=== PATIENT | male | born 1965 | race Two or more races ===

== ENCOUNTER 2019-12-31 11:22 | Outpatient (REF) | payer OTHER, SELFPAY ==
--- NOTE | 2019-12-31 | XR_ITS ---
EXAMINATION: RIGHT WRIST X-RAY CLINICAL INFORMATION: Pain COMPARISON: None TECHNIQUE: 4 views of the right wrist FINDINGS: Bone alignment is normal. No acute fracture or dislocation is seen. There are small ossifications or osteophytes adjacent to the distal radius. These appear well corticated suggestive of old trauma. There are mild degenerative changes of the first SKILLED NURSING joint. There is soft tissue arterial calcification. IMPRESSION: No acute fracture or dislocation seen. Question evidence of old trauma to the volar wrist adjacent to the distal radius. Mild degenerative changes of the first SKILLED NURSING joint.
== END 2019-12-31 11:23 | disposition home or self-care (01) ==
LOC: HO.XRAY 11:22
PROVIDERS: PCP Internal Medicine; Visit Provider Internal Medicine
DX: M25.531 Pain in right wrist (principal)
CPT/HCPCS: 73100

== ENCOUNTER → 2020-02-02 12:00 | Outpatient (BNVA) | payer OTHER, SELFPAY | PROVIDERS: PCP Internal Medicine; Referring Provider Internal Medicine; Visit Provider Internal Medicine Endocrinology, Diabetes & Metabolism | DX: E11.65 Type 2 diabetes mellitus with hyperglycemia (principal); E11.40 Type 2 diabetes mellitus with diabetic neuropathy, unspecified; E11.22 Type 2 diabetes mellitus with diabetic chronic kidney disease; I12.9 Hypertensive chronic kidney disease with stage 1 through stage 4 chronic kidney disease, or unspecified chronic kidney disease; N18.30 Chronic kidney disease, stage 3 unspecified; Z79.4 Long term (current) use of insulin; E78.5 Hyperlipidemia, unspecified; E66.9 Obesity, unspecified; E55.9 Vitamin D deficiency, unspecified; Z79.899 Other long term (current) drug therapy | CPT/HCPCS: 99212 ==

== ENCOUNTER 2020-02-17 07:30 | Day surgery (SDC) | payer OTHER, SELFPAY ==
--- NOTE | 2020-02-17 08:54 | MHC.SHP ---
Pre-Procedural Eval Section B Chief Complaint: DYSPHAGIA Relevant Family History (Specify if Yes): No Relevant Social History: None Present Medications: see Short Stay Collaborative assessment Medical History: Significant History (DM, depression, anxiety, Gabrielle, ADHD) History of Previous Operations: No relevant previous surgery Allergies: Allergies Allergy/AdvReac Type Severity Reaction Status Date / Time cephalexin [From KEFLEX] Allergy Mild ITCHY Unverified 12/17/19 15:45 THROAT lisinopril [LISINOPRIL] Allergy Unknown SWELLING Unverified 12/17/19 15:45 COUGH Review of Systems Sugical H&P ROS: Negative: Constitution, Cardiovascular, Respiratory, Neurological, Psychiatric, Hem-Onc, Allergic/Immunologic, Gastrointestinal, Genitourinary, Musculoskeletal, Integumentary, Endocrine and Eyes/Ears/Nose/Throat Exam Surgical H&P Exam: Normal: HEENT, Normal: Heart, Normal: Lungs, Normal: Extremities, Normal: Abdomen, Normal: Skin and Normal: Neurological Plan Diagnosis/Plan: Unchanged Patient has been examined and remains a candidate for the planned procedure
--- NOTE | 2020-02-17 08:54 | PM.OP ---
Brief Operative Note Date of Service: 02/17/20 Pre-op diagnosis: dysphagia Post-op diagnosis: same Procedure: see op note Surgeon: Nidia Weaver MD Anesthesia: MAC Estimated blood loss (mL): 0 Condition: stable Disposition: PACU
--- NOTE | 2020-02-17 08:55 | W.PM.OPN ---
Operative Note Operative Note Date of Service: 02/17/20 Narrative: Procedure Description: EGD FLEXIBLE TRANSORAL UPPER GASTROINTESTINAL ENDOSCOPY UPPER ENDOSCOPY Consent: Indications for the procedure and potential complications of bleeding, perforation, reaction to medications and missed diagnosis were discussed with the patient and informed consent was obtained. Instrument: Olympus GIF H 190 J mid size upper endoscope Monitoring: Vital signs and clinical assessment, continuous EKG monitoring, Pulse oximetry, Carbon Dioxide monitoring and blood pressure monitoring were done throughout the procedure. Procedure: The patient was placed in the left lateral decubitis position and pre-procedure medications were administered and a bite block was placed. The endoscope was inserted into the mouth and advanced under direct vision to the third part of duodenum. A careful inspection was made as the upper endoscope was withdrawn including a retroflexed examination of the proximal stomach; Findings and interventions are described below. Findings: Larynx:normal Esophagus: GE junction at 40 cm, diaphragm hiatus at 40 cm, LA Grade A esophagitis at GEJ, bx taken as well as random esophagus, savary wire passed and 17 mm bougie used to dilate, no tears seen Stomach: Patchy gastric erythema with healed erosion scars at antrum. Biopsies were obtained. Grade 2 flap valve on retroflexed examination of the cardia. Duodenum: bulbar duodenitis, bx taken Intervention: Biopsies as noted above, savary dilation Impression/Findings: esophagitis gastritis duodenitis PLAN: cont PPI. may need to increase dose or change brand check nsaid hx can have normal diet as tolerated today if h pylori pos then treat
--- NOTE | 2020-02-17 08:55 | HO.ANESPROP2 ---
[facility] Past Medical History Medical History (Updated 01/12/20 @ 12:30 by Rosalinda Duvall MD) Anxiety CKD (chronic kidney disease) stage 3, GFR 30-59 ml/min Depression Diabetes Diabetes type 2, uncontrolled Diabetic nephropathy associated with type 2 diabetes mellitus Diabetic neuropathy associated with type 2 diabetes mellitus Dyslipidemia GERD (gastroesophageal reflux disease) High cholesterol Hypercalcemia Hypertension alf (current) use of insulin Neuropathy Obesity (BMI 30-39.9) Sleep apnea Vitamin D deficiency Family History Family History (Updated 01/12/20 @ 12:31 by Noni Billingsley LPN) Father Diabetes Mother No problems noted. Surgical History Surgical History (Updated 01/12/20 @ 12:29 by Noni Billingsley LPN) Hx of arthroscopy of knee Hx of arthroscopy of right knee Social History Social History (Updated 02/02/20 @ 12:05 by Noni Billingsley LPN) Smoking Status: Never smoker Advance Directives: No Advance Directives Information Provided: Yes Meds Allergies Allergy/AdvReac Type Severity Reaction Status Date / Time cephalexin [From KEFLEX] Allergy Mild ITCHY Unverified 12/17/19 15:45 THROAT lisinopril [LISINOPRIL] Allergy Unknown SWELLING Unverified 12/17/19 15:45 COUGH Home Medications Medication Instructions Recorded Confirmed Type alcohol swabs 0 pad TOPICAL 02/02/20 02/02/20 History atorvastatin 10 mg tablet 10 mg PO DAILY 02/02/20 02/02/20 History blood sugar diagnostic #10 ea 02/02/20 02/02/20 History famotidine 20 mg tablet 20 mg PO BID 02/02/20 02/02/20 History lancets 28 gauge #100 ea 02/02/20 02/02/20 History losartan 50 mg tablet 50 mg PO DAILY 02/02/20 02/02/20 History meclizine 25 mg tablet mg PO 02/02/20 02/02/20 History metoclopramide HCl 5 mg tablet 5 mg PO QID 02/02/20 02/02/20 History ondansetron HCl 4 mg tablet 0 mg PO 02/02/20 02/02/20 History pen needle, diabetic 32 gauge x #50 ea 02/02/20 02/02/20 History trazodone 150 mg tablet 150 mg PO BEDTIME 02/02/20 02/02/20 History triamcinolone acetonide 0.1 % applic TOPICAL BID 02/02/20 02/02/20 History topical cream venlafaxine 150 mg 300 mg PO QAM 02/02/20 02/02/20 History capsule,extended release 24 hr Exam Exam Date and Time: February 17, 2020 0855 Air[address] Mallampati Class: II (Missing/broken teeth, nothing lose) TM Dist: >3cm Neck ROM: Full Heart: RRR Lungs: CTA BL Assessment and Plan Assessment Anesthesia Assessment: Anesthesia Plan Discussed Final Anesthetic Review NPO: Yes ASA Class: III Final Preanesthetic Review: No Changes in Pt Med Stat and Consent Obtained/Reviewed Patient Risk: Intermediate Procedure Risk: Intermediate Anesthetic Plan Anesthetic Plan: MAC: Disposition: Standard PACU
[2020-02-17 09:01] VITALS: BMI 31.0
[2020-02-17 09:10] LABS: Glucose, Whole Blood 344 mg/dL (60-115)
[2020-02-17 09:13] VITALS: BP 162/92; PULSE 102; RESP 16; TEMP 36.4; O2SAT 97
[2020-02-17] MEDS: Lactated Ringers 1,000 ML 50 ML IVCONT (09:14)
[2020-02-17] MEDS: Insulin Regular, Human 100 UNIT/ML 3 ML VIAL SUBCUT (09:24)
[2020-02-17 09:49] VITALS: BP 121/73; PULSE 89; RESP 16; TEMP 36.4; O2SAT 99
[2020-02-17 10:04] VITALS: BP 145/87; PULSE 94; RESP 18; O2SAT 95
[2020-02-17 10:19] VITALS: BP 160/94; PULSE 96; RESP 16; O2SAT 96
[2020-02-17 10:29] LABS: Glucose, Whole Blood 336 mg/dL (60-115)
[2020-02-17 10:34] VITALS: BP 148/94; PULSE 92; RESP 16; O2SAT 96
--- NOTE | 2020-02-17 10:42 | PM.ANESPN ---
Subjective Subjective Patient reports: other (Follow up in PACU for BS 136) Interval history: pt in PACU BS 336 after 5 units of SQ insulin. pt poor historian regarding amount of insulin taken and when. saying 24 in am and 80 pm spoke to patient regarding BS value. he said he would take 24u at home for that value. giving 15 u SQ recheck in 1 hour. pt instructed to check his BS at home more frequently and follow closely. also to follow up with primary for being poorly controlled. pt reports multiple readings of high on machine and values over 400. Physical Exam Vital Signs: Vital Signs: Last Vital Signs Temp 97.6 F 02/17/20 09:49 Pulse 92 02/17/20 10:34 Resp 16 02/17/20 10:34 BP 148/94 H 02/17/20 10:34 Pulse Ox 96 02/17/20 10:34 Body Mass Index 31.0 Progress Note: A&P Fall Risk Details Current Medications: Current Medications Generic Name Dose Route Start Last Admin Trade Name Freq PRN Reason Stop Dose Admin Lactated Ringer's 1,000 mls @ 50 mls/hr 02/17/20 09:00 02/17/20 09:14 Lr IVCONT 50 mls/hr .Q20H RADHA Administration Ondansetron HCl 4 mg 02/17/20 08:52 Ondansetron Hcl 4 Mg/2 Ml Vial IVPUSH ONCE PRN Nausea and Vomiting Time Spent With Patient Time: Total time spent is greater than 50% in coordination of care (as documented) at patient's floor/unit and/or counseling patient: Time with patient: less than 15 minutes Procedures Abscess I/D Date of Service: 03/02/20
[2020-02-17] MEDS: Insulin Regular, Human 100 UNIT/ML 3 ML VIAL 15 UNIT SUBCUT (10:47)
[2020-02-17 10:49] VITALS: BP 164/97; PULSE 93; RESP 16; O2SAT 98
[2020-02-17 12:03] LABS: Glucose, Whole Blood 371 mg/dL (60-115)
--- NOTE | 2020-02-17 12:27 | P.POSTANES_ITS ---
Post Anesthesia Evaluation Post Anesthesia Evaluation Vital Signs: Vital Signs Temp Pulse Resp BP Pulse Ox 02/17/20 10:49 93 16 164/97 H 98 02/17/20 10:34 92 16 148/94 H 96 02/17/20 10:19 96 16 160/94 H 96 02/17/20 10:04 94 18 145/87 H 95 02/17/20 09:49 97.6 F 89 16 121/73 99 02/17/20 09:13 97.6 F 102 H 16 162/92 H 97 Anesthesia: Monitored Mental Status: Awake Pain Control: Satisfactory Nausea/Vomiting: None Hydration: Adequate Anesthesia-Related Issues: No Anes. Related Issues (Patient with uncontrolled blood sugar at baseline. 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 Patient is discharged home and advised to resume insulin regimen at home.)
== END 2020-02-17 13:02 | disposition home or self-care (01) ==
PROVIDERS: PCP Internal Medicine; Visit Provider Internal Medicine Gastroenterology
PROC: 0DJ08ZZ Inspection of Upper Intestinal Tract, Via Natural or Artificial Opening Endoscopic (ICD-10-PCS; CPT 43235; principal; 2020-02-17 09:30)
DX: R13.10 Dysphagia, unspecified (principal); K29.50 Unspecified chronic gastritis without bleeding; K29.80 Duodenitis without bleeding; K21.00 Gastro-esophageal reflux disease with esophagitis, without bleeding; K44.9 Diaphragmatic hernia without obstruction or gangrene; E11.22 Type 2 diabetes mellitus with diabetic chronic kidney disease; E11.65 Type 2 diabetes mellitus with hyperglycemia; I12.9 Hypertensive chronic kidney disease with stage 1 through stage 4 chronic kidney disease, or unspecified chronic kidney disease; N18.30 Chronic kidney disease, stage 3 unspecified; E11.21 Type 2 diabetes mellitus with diabetic nephropathy; E11.40 Type 2 diabetes mellitus with diabetic neuropathy, unspecified; Z79.4 Long term (current) use of insulin; Z79.899 Other long term (current) drug therapy; E78.5 Hyperlipidemia, unspecified; E83.52 Hypercalcemia; G47.30 Sleep apnea, unspecified; E55.9 Vitamin D deficiency, unspecified; E66.9 Obesity, unspecified
CPT/HCPCS: 43248; 43239; 82947; 88305; 88342

== ENCOUNTER 2020-02-23 19:30 | Inpatient (IN) | payer OTHER, SELFPAY ==
--- NOTE | 2020-02-23 19:47 | ECG_ITS ---
Test Reason : TACHYCARDIA Blood Pressure : / mmHG Vent. Rate : 096 BPM Atrial Rate : 096 BPM P-R Int : 130 ms QRS Dur : 080 ms QT Int : 350 ms P-R-T Axes : 053 011 030 degrees QTc Int : 442 ms Normal sinus rhythm Nonspecific T wave abnormality Abnormal ECG When compared with ECG of 09-DEC-2018 01:00, No significant change was found Referred By: Bridgette Gandhi Electronically Signed By:MARIO AKHTAR MD
--- NOTE | 2020-02-23 19:47 | ED.WEAKNESS ---
HPI - Weakness General Chief complaint: Weakness Stated complaint: INCREASED LETHARGY Time Seen by Provider: 02/23/20 20:59 Source: EMS Mode of arrival: EMS Limitations: altered mental status History of Present Illness HPI Narrative: 54-year-old male with past medical history diabetes type 2 insulin dependent, diabetic neuropathy, chronic kidney disease stage 3, obesity, hyperlipidemia, and hypertension presents with weakness, altered mental status and lethargy after being ill for several days. At this time he is unable to answer any questions, EMS was called to his home for bilateral lower extremity weakness. MD Complaint: generalized weakness and lack of energy Onset (ago): day(s) (2) Duration: constant Location: E and [facility] Severity: severe Severity scale (1-10): 9 Relieving factors: none Associated symptoms: fever/chills, loss of appetite and myalgias Related Data Home Medications Medication Instructions Recorded Confirmed atorvastatin 10 mg tablet 10 mg PO DAILY 02/02/20 02/23/20 blood sugar diagnostic #10 ea 02/02/20 02/02/20 famotidine 20 mg tablet 20 mg PO BID 02/02/20 02/24/20 lancets 28 gauge #100 ea 02/02/20 02/02/20 losartan 50 mg tablet 50 mg PO DAILY 02/02/20 02/02/20 meclizine 25 mg tablet mg PO 02/02/20 02/02/20 ondansetron HCl 4 mg tablet 0 mg PO 02/02/20 02/02/20 pen needle, diabetic 32 gauge x #50 ea 02/02/20 02/02/20 trazodone 150 mg tablet 150 mg PO BEDTIME 02/02/20 02/02/20 triamcinolone acetonide 0.1 % applic TOPICAL BID 02/02/20 02/02/20 topical cream venlafaxine 150 mg 300 mg PO QAM 02/02/20 02/02/20 capsule,extended release 24 hr Previous Rx's Medication Instructions Recorded hydrochlorothiazide 25 mg tablet 25 mg PO DAILY 90 Days #90 tab 01/04/20 clonazepam 1 mg tablet 1 mg PO TID #90 tab 01/28/20 insulin aspart U-100 100 unit/mL 20 unit SUBCUT TID 30 Days #30 ml 02/02/20 (3 mL) subcutaneous pen insulin glargine U-300 conc 300 80 unit SUBCUT DAILY 30 Days #9 ml 02/02/20 unit/mL (1.5 mL) subcutaneous pen linagliptin 5 mg tablet 5 mg PO DAILY 30 Days #30 tab 02/05/20 metoclopramide HCl 5 mg tablet 5 mg PO QID 30 Days #120 tab 02/17/20 Allergies Allergy/AdvReac Type Severity Reaction Status Date / Time cephalexin [From KEFLEX] Allergy Mild ITCHY Verified 02/17/20 08:58 THROAT lisinopril [LISINOPRIL] Allergy Unknown SWELLING Verified 02/17/20 08:58 COUGH Review of Systems Review of Systems: ROS unable to be obtained due to altered mental status Yes all other systems are reviewed and are negative [facility] Past Medical History Source: unable to obtain Medical History Anxiety CKD (chronic kidney disease) stage 3, GFR 30-59 ml/min Depression Diabetes Diabetes type 2, uncontrolled Diabetic nephropathy associated with type 2 diabetes mellitus Diabetic neuropathy associated with type 2 diabetes mellitus Dyslipidemia GERD (gastroesophageal reflux disease) High cholesterol Hypercalcemia Hypertension correction (current) use of insulin Neuropathy Obesity (BMI 30-39.9) Sleep apnea Vitamin D deficiency Surgical History Hx of arthroscopy of knee Hx of arthroscopy of right knee Family History Family History Father Diabetes Mother No problems noted. Social History Social History Alcohol intake: unknown Smoking Status: Unknown if ever smoked Use of substances other than those prescribed or required for medical reasons: Unknown Advance Directives: No Advance Directives Information Provided: No Physical Exam Vital Signs: Vital Signs: Last Vital Signs Temp 99.7 F 02/23/20 22:00 Pulse 88 02/23/20 22:00 Resp 28 H 02/23/20 22:00 BP 147/71 H 02/23/20 22:00 Pulse Ox 90 L 02/23/20 22:00 Body Mass Index 11.2 Appearance: Alert To verbal stimulus. Oriented to self. able to follow simple commands. Fall asleep mid sentence. Moderate distress. tachycardic and tachypneic, hypoxic. Head: Normal external exam. Normocephalic. Atraumatic. Eyes: PERRLA. Conjunctiva and sclera normal. Eyelids normal. ENT: TM's Normal. Pharynx normal. Uvula midline. Dry mucous membranes. No trismus noted. No drooling noted. No muffled voice noted. Neck: Normal inspection. Neck supple. No adenopathy. No meningeal signs. No neck mass noted. CVS: tachycardic heart rate and rhythm. Heart sound normal. No murmurs noted. Pulses equal to all extremities. Respiratory: moderate respiratory distress. Painless inspiration. Breath sounds decreased with expiratory wheezing. Chest nontender. No accessory muscle usage noted or decreased air movement noted. Abdomen: Soft and nontender. Bowel sounds normal in all 4 quadrants. No distention noted. No organomegaly noted. No visible injury noted. Back: No CVA tenderness. Full range of motion noted. Skin: Skin warm and mild diaphoresis. Normal skin color. Normal skin turgor. No rashes/lesions/lacerations noted. Extremities: No lower extremity edema. Extremities exhibit normal range of motion. Extremities nontender. Neuro: cranial nerves 2-12 intact NIH Stroke Scale Internal: Initial- Upon Arrival Level of Consciousness: Alert Level of Consciousness Questions: Answers one question correctly Level of Consciousness Commands: Performs neither task correctly Best Gaze: Normal Visual: No visual loss Facial Palsy: Normal Motor Arm (Right): No drift Motor Arm (Left): No drift Motor Leg (Right): No drift Motor Leg (Left): No drift Limb Ataxia: Absent Sensory: Normal Best Language: No aphasia Dysarthia: Normal Extinction and Inattention: No abnormality Score: 3 Course Course Course Narrative: 54-year-old male with past medical history of insulin-dependent diabetes, hypertension, hyperlipidemia, obesity presents with lethargy, weakness, fever, and tachycardia. Patient presents with sepsis criteria however it is highly suspicious for viral infection. We will not start fluid resuscitation until we see either CT scan or COVID-19 test results, whichever comes 1st. We will give dexamethasone, Toradol, and rectal Tylenol as patient is unable to swallow secondary to altered mental status. CT scan of head and chest pending. Patient case was discussed with hospitalist, he will be admitted once workup is complete. NIH stroke scale is a 3 however I do not feel this patient is a stroke patient As he does fit sepsis criteria. We will rule out CVA with CT of head. CT scan of chest shows infiltrates consistent with COVID-19. CT scan of head negative for acute findings or findings needing emergent intervention. Lab values at 9:08 p.m. Creatinine is 2.51 prior values have been on 09/07/2019 was 2.12 and on 06/13/2019 was 2.04, BUN 42, prior values 09/06 was 29, and 06/12 was 34. tox screen positive for benzos, patient is prescribed Klonopin. white count is negative, H&H 10.0/29.4. This is a viral illness consistent with COVID-19. Reevaluation(s) Reevaluation #1: Labs are Pending and have not been drawn. 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 Lab Data Attestation: I reviewed the patient's lab results. Result diagrams: 02/23/20 22:33 02/23/20 22:33 Labs: Lab Results 02/23/20 02/23/20 02/23/20 Range/Units 20:49 20:49 20:49 WBC (4.8-10.8) X10*3/uL RBC (4.60-5.80) X10*6/uL Hgb (14.0-18.0) g/dl Hct (42-52) % MCV (80-98) fL MCH (27.0-33.0) pg MCHC (31.0-36.0) g/dl RDW (11.0-16.0) % Plt Count (160-400) X10*3/uL MPV (9.4-12.4) fL Immature Gran % (Auto) (0.0-0.4) % Neut % (Auto) (45-73) % Lymph % (Auto) (20-40) % [place] % (Auto) (2-11) % Eos % (Auto) (0-4) % Baso % (Auto) (0-2) % Lymph # (Auto) (1.2-4.9) X10*3/uL [place] # (Auto) (0.1-1.2) X10*3/uL Eos # (Auto) (0.0-0.4) X10*3/uL Baso # (Auto) (0.0-0.2) X10*3/uL Abs Immat Gran (auto) (0.00-0.03) X10*3/uL Absolute Neuts (auto) (2.0-8.3) X10*3/uL Absolute Nucleated RBC (0.0-0.012) X10*3/uL Nucleated RBC % (auto) (0.0-0.2) /100WBC Smear Tech's Comments PT (10.8-13.0) SEC INR (0.9-1.1) APTT (24.1-38.0) SEC Sodium (135-145) mmol/L Potassium (3.3-5.1) mmol/l Chloride (96-108) mmol/L Carbon Dioxide (22-29) mmol/L Anion Gap (12-20) BUN (9-16) mg/dL Creatinine (0.5-1.4) mg/dL Estim Creat Clear Calc Estimated GFR Random Glucose (60-115) mg/dL Lactic Acid 1.5 (0.5-2.0) mmol/L Calcium (8.4-10.2) mg/dL Magnesium 1.8 (1.6-2.6) mg/dL Total Bilirubin (0.0-1.0) mg/dL Direct Bilirubin (0.0-0.5) mg/dL AST (5-37) U/L ALT (0-40) U/L Alkaline Phosphatase (39-117) U/L Troponin I High Sens 14.0 (<3.5-35.0) ng/L B-Natriuretic Peptide < 10 (<100) pg/mL Total Protein (6.5-8.0) g/dL Albumin (3.5-5.0) g/dL Lipase (8-78) U/L Urine Color Urine Appearance Urine pH (5.0-8.0) Ur Specific [place] (1.005-1.025) Urine Protein (NEG-TRACE) MG/DL Urine Glucose (UA) (NEG) MG/DL Urine Ketones (NEG) MG/DL Urine Blood (NEG) Urine Nitrite (NEG) Ur Leukocyte Esterase (NEG) Urine RBC (0) /HPF Urine WBC (0-4) /HPF Ur Squamous Epith Cells /LPF Urine Bacteria /LPF Urine Mucus /LPF Urine Opiates Screen (Not Detect) Ur Barbiturates Screen (Not Detect) Ur Phencyclidine Scrn (Not Detect) Ur Amphetamines Screen (Not Detect) U Benzodiazepines Scrn (Not Detect) Urine Cocaine Screen (Not Detect) U Marijuana (THC) Screen (Not Detect) Ethyl Alcohol mg/dL 02/23/20 02/23/20 02/23/20 Range/Units 20:49 21:08 21:08 WBC (4.8-10.8) X10*3/uL RBC (4.60-5.80) X10*6/uL Hgb (14.0-18.0) g/dl Hct (42-52) % MCV (80-98) fL MCH (27.0-33.0) pg MCHC (31.0-36.0) g/dl RDW (11.0-16.0) % Plt Count (160-400) X10*3/uL MPV (9.4-12.4) fL Immature Gran % (Auto) (0.0-0.4) % Neut % (Auto) (45-73) % Lymph % (Auto) (20-40) % [place] % (Auto) (2-11) % Eos % (Auto) (0-4) % Baso % (Auto) (0-2) % Lymph # (Auto) (1.2-4.9) X10*3/uL [place] # (Auto) (0.1-1.2) X10*3/uL Eos # (Auto) (0.0-0.4) X10*3/uL Baso # (Auto) (0.0-0.2) X10*3/uL Abs Immat Gran (auto) (0.00-0.03) X10*3/uL Absolute Neuts (auto) (2.0-8.3) X10*3/uL Absolute Nucleated RBC (0.0-0.012) X10*3/uL Nucleated RBC % (auto) (0.0-0.2) /100WBC Smear Tech's Comments PT (10.8-13.0) SEC INR (0.9-1.1) APTT (24.1-38.0) SEC Sodium (135-145) mmol/L Potassium (3.3-5.1) mmol/l Chloride (96-108) mmol/L Carbon Dioxide (22-29) mmol/L Anion Gap (12-20) BUN (9-16) mg/dL Creatinine (0.5-1.4) mg/dL Estim Creat Clear Calc Estimated GFR Random Glucose (60-115) mg/dL Lactic Acid (0.5-2.0) mmol/L Calcium (8.4-10.2) mg/dL Magnesium (1.6-2.6) mg/dL Total Bilirubin (0.0-1.0) mg/dL Direct Bilirubin (0.0-0.5) mg/dL AST (5-37) U/L ALT (0-40) U/L Alkaline Phosphatase (39-117) U/L Troponin I High Sens (<3.5-35.0) ng/L B-Natriuretic Peptide (<100) pg/mL Total Protein (6.5-8.0) g/dL Albumin (3.5-5.0) g/dL Lipase (8-78) U/L Urine Color YELLOW Urine Appearance HAZY Urine pH 5.5 (5.0-8.0) Ur Specific [place] >= 1.030 H (1.005-1.025) Urine Protein 2+ H (NEG-TRACE) MG/DL Urine Glucose (UA) NEG (NEG) MG/DL Urine Ketones NEG (NEG) MG/DL Urine Blood 2+ H (NEG) Urine Nitrite NEG (NEG) Ur Leukocyte Esterase NEG (NEG) Urine RBC 1-4 (0) /HPF Urine WBC 1-4 (0-4) /HPF Ur Squamous Epith Cells 1+ /LPF Urine Bacteria 2+ /LPF Urine Mucus 1+ /LPF Urine Opiates Screen Not Detected (Not Detect) Ur Barbiturates Screen Not Detected (Not Detect) Ur Phencyclidine Scrn Not Detected (Not Detect) Ur Amphetamines Screen Not Detected (Not Detect) U Benzodiazepines Scrn POSITIVE H (Not Detect) Urine Cocaine Screen Not Detected (Not Detect) U Marijuana (THC) Screen Not Detected (Not Detect) Ethyl Alcohol < 10 mg/dL 02/23/20 02/23/20 02/23/20 Range/Units 22:33 22:33 22:33 WBC 5.3 (4.8-10.8) X10*3/uL RBC 3.46 L (4.60-5.80) X10*6/uL Hgb 10.0 L (14.0-18.0) g/dl Hct 29.4 L (42-52) % MCV 85.0 (80-98) fL MCH 28.9 (27.0-33.0) pg MCHC 34.0 (31.0-36.0) g/dl RDW 12.0 (11.0-16.0) % Plt Count 136 L (160-400) X10*3/uL MPV 10.2 (9.4-12.4) fL Immature Gran % (Auto) 0.6 H (0.0-0.4) % Neut % (Auto) 87.9 H (45-73) % Lymph % (Auto) 6.6 L (20-40) % [place] % (Auto) 4.9 (2-11) % Eos % (Auto) 0.0 (0-4) % Baso % (Auto) 0.0 (0-2) % Lymph # (Auto) 0.4 L (1.2-4.9) X10*3/uL [place] # (Auto) 0.3 (0.1-1.2) X10*3/uL Eos # (Auto) 0.0 (0.0-0.4) X10*3/uL Baso # (Auto) 0.0 (0.0-0.2) X10*3/uL Abs Immat Gran (auto) 0.03 (0.00-0.03) X10*3/uL Absolute Neuts (auto) 4.6 (2.0-8.3) X10*3/uL Absolute Nucleated RBC 0.000 (0.0-0.012) X10*3/uL Nucleated RBC % (auto) 0.0 (0.0-0.2) /100WBC Smear Tech's Comments VERIFIED PT 14.2 H (10.8-13.0) SEC INR 1.2 H (0.9-1.1) APTT 36.4 (24.1-38.0) SEC Sodium 135 (135-145) mmol/L Potassium 3.8 (3.3-5.1) mmol/l Chloride 103 (96-108) mmol/L Carbon Dioxide 20 L (22-29) mmol/L Anion Gap 16 (12-20) BUN 42 H (9-16) mg/dL Creatinine 2.51 H (0.5-1.4) mg/dL Estim Creat Clear Calc 47.3 Estimated GFR 27 Random Glucose 167 H (60-115) mg/dL Lactic Acid (0.5-2.0) mmol/L Calcium 8.0 L (8.4-10.2) mg/dL Magnesium (1.6-2.6) mg/dL Total Bilirubin 0.4 (0.0-1.0) mg/dL Direct Bilirubin 0.2 (0.0-0.5) mg/dL AST 41 H (5-37) U/L ALT 26 (0-40) U/L Alkaline Phosphatase 108 (39-117) U/L Troponin I High Sens (<3.5-35.0) ng/L B-Natriuretic Peptide (<100) pg/mL Total Protein 5.6 L (6.5-8.0) g/dL Albumin 3.0 L (3.5-5.0) g/dL Lipase 106 H (8-78) U/L Urine Color Urine Appearance Urine pH (5.0-8.0) Ur Specific [place] (1.005-1.025) Urine Protein (NEG-TRACE) MG/DL Urine Glucose (UA) (NEG) MG/DL Urine Ketones (NEG) MG/DL Urine Blood (NEG) Urine Nitrite (NEG) Ur Leukocyte Esterase (NEG) Urine RBC (0) /HPF Urine WBC (0-4) /HPF Ur Squamous Epith Cells /LPF Urine Bacteria /LPF Urine Mucus /LPF Urine Opiates Screen (Not Detect) Ur Barbiturates Screen (Not Detect) Ur Phencyclidine Scrn (Not Detect) Ur Amphetamines Screen (Not Detect) U Benzodiazepines Scrn (Not Detect) Urine Cocaine Screen (Not Detect) U Marijuana (THC) Screen (Not Detect) Ethyl Alcohol mg/dL Imaging Data CT scan - chest: Attestation: I personally reviewed and interpreted this imaging study as follows: Radiologist's impression: EXAMINATION: CT CHEST WITHOUT CONTRAST CLINICAL INFORMATION: Lethargy and weakness with fever COMPARISON: Chest radiograph 10/10/2018 TECHNIQUE: Multidetector volumetric CT imaging of the chest was done. Axial MIP volume rendering provided. Sagittal and coronal reformatted images were obtained. This CT examination was performed using dose optimization techniques as appropriate, variously including the following: *Automated exposure control *Adjustment of mA and/or kV according to patient size (this includes techniques or standardized protocols for targeted exams where dose is matched to indication/reason for exam; i.e. extremities or head) *Use of iterative reconstruction technique DLP: 1157 mGy-cm FINDINGS: LUNGS: Scattered groundglass opacities are present throughout the lungs fairly characteristic of Covid 19 infection. No air bronchograms are seen. No lung masses are detected MEDIASTINUM: The mediastinum is normal. PLEURA: There is no pleural effusion. No pleural mass or thickening. AXILLA: No lymphadenopathy. UPPER ABDOMEN: Unremarkable. OSSEOUS STRUCTURES: Unremarkable. CT/CT chest wo con IMPRESSION: Pulmonary findings fairly classic for Covid [address] scan - head: Attestation: I personally reviewed and interpreted this imaging study as follows: Radiologist's impression: EXAMINATION: CT HEAD WITHOUT CONTRAST CLINICAL INFORMATION: Lethargy, weakness, fever COMPARISON: 05/13/2017 TECHNIQUE: Contiguous axial imaging was performed from the skull base to vertex without intravenous administration of contrast. This CT examination was performed using dose optimization techniques as appropriate, variously including the following: *Automated exposure control *Adjustment of mA and/or kV according to patient size (this includes techniques or standardized protocols for targeted exams where dose is matched to indication/reason for exam; i.e. extremities or head) *Use of iterative reconstruction technique DLP: 790 mGy-cm FINDINGS: There is no evidence of acute intracranial hemorrhage or territorial infarction. No abnormal mass effect or midline shift is seen. Flanagan to white matter differentiation is well preserved. No extra-axial fluid collections are identified. The ventricles are normal in size. There is mild patchy periventricular and subcortical white matter hypodensity consistent with chronic microvascular white matter ischemic changes. The osseous structures and soft tissues are normal. The mastoid air cells and visualized portions of the paranasal sinuses are well aerated. CT/CT head/brain wo con IMPRESSION: No acute intracranial pathology. ECG Data Attestation: I personally reviewed and interpreted this ECG as follows: ECG interpretation date: 02/23/20 ECG interpretation time: 20:49 Prior ECG tracings: not available for review Interpretation: Ventricular rate 96 beats per minute, p.r. interval 130, QT 350, QTC 442, normal sinus rhythm with nonspecific T-wave abnormality. No indication of ST elevation or depression, no indication of ischemia. Prior EKG unavailable secondary to system failure. Critical Care Time Critical Care Time Critical Care Time: Yes Total Critical Care Time: 65 Attestation: I have personally provided critical care time exclusive of time spent on separately billable procedures. Time includes review of laboratory data, radiology results, discussion with consultants, and monitoring for potential decompensation. Interventions were performed as documented. Discharge Plan Discharge Clinical Impression: COVID-19, Pneumonia due to 2019 novel coronavirus Hypertension Qualifiers: Hypertension type: essential hypertension Qualified Code(s): I10 - Essential (primary) hypertension Diabetes type 2, uncontrolled Qualifiers: Glycemic state: with hyperglycemia Qualified Code(s): E11.65 - Type 2 diabetes mellitus with hyperglycemia Patient Disposition: Admitted As Inpatient
[2020-02-23 19:50] VITALS: BP 136/72; BP 151/80; PULSE 102; PULSE 79; RESP 19; TEMP 39.2; O2SAT 92; O2SAT 96; BMI 11.2
[2020-02-23 20:00] VITALS: BP 151/80; PULSE 102; RESP 19; TEMP 39.3; O2SAT 96
[2020-02-23] MEDS: 0.9 % Sodium Chloride 1,000 ML 999 ML IVCONT (21:00)
[2020-02-23] MEDS: dexAMETHasone sod phosphate 4 MG/ML VIAL 10 MG IVPUSH (21:17)
[2020-02-23] MEDS: Ketorolac Tromethamine 30 MG/ML VIAL IVPUSH (21:18)
[2020-02-23] MEDS: Acetaminophen Supp 650 MG SUPP.RECT PR (21:18)
[2020-02-23 21:21] LABS: Lactic Acid 1.5 mmol/L (0.5-2.0)
[2020-02-23 21:24] LABS: Ethanol < 10 mg/dL
[2020-02-23 21:27] LABS: Magnesium 1.8 mg/dL (1.6-2.6)
[2020-02-23 21:32] LABS: B Type Natriuretic Peptide < 10 pg/mL (<100)
[2020-02-23 21:40] LABS: Glucose Urine UA NEG (NEG); Leukocyte Esterase Urine NEG (NEG); Nitrite Urine NEG (NEG); PH 5.5 (5.0-8.0); Specific Gravity - Urine >= 1.030 (1.005-1.025); Urine Blood 2+ (NEG); Urine Ketones NEG (NEG); Urine Protein 2+ MG/DL (NEG-TRACE)
[2020-02-23 21:56] LABS: Appearance Urine HAZY; Color Urine YELLOW
[2020-02-23 21:57] LABS: Amphetamine Screen Urine Not Detected (Not Detect); Bacteria Urine 2+ /LPF; Barbiturates, Urine Not Detected (Not Detect); Benzodiazepines Screen Urine POSITIVE (Not Detect); Cannabinoid Screen Urine Not Detected (Not Detect); Cocaine Screen Urine Not Detected (Not Detect); Mucus Urine 1+ /LPF; Opiate Screen Urine Not Detected (Not Detect); Phencyclidine Screen Urine Not Detected (Not Detect); Squamous Epithelial Cell Urine 1+ /LPF
[2020-02-23 22:00] VITALS: BP 147/71; PULSE 88; RESP 28; TEMP 37.6; O2SAT 90
[2020-02-23] MEDS: Lactated Ringers 1,000 ML 999 ML IVCONT (22:00)
--- NOTE | 2020-02-23 22:00 | PC.NURSE ---
pt daughter can be called for a ride home Har[place] [phone]
[2020-02-23 22:43] LABS: Hematocrit 29.4 % (42-52); Imm Gran Abs Auto 0.03 X10*3/uL (0.00-0.03); Imm Gran Pct Auto 0.6 % (0.0-0.4); Lymphocytes Absolute Auto 0.4 X10*3/uL (1.2-4.9); Lymphocytes Percent Auto 6.6 % (20-40); MANUAL DIFF FLAG SCAN; Mean Corpuscular Hemoglobin 28.9 pg (27.0-33.0); Mean Platelet Volume 10.2 fL (9.4-12.4); Monocytes Absolute Auto 0.3 X10*3/uL (0.1-1.2); Monocytes Percent Auto 4.9 % (2-11); Neutrophils Absolute Auto 4.6 X10*3/uL (2.0-8.3); Neutrophils Percent Auto 87.9 % (45-73); Platelet Count 136 X10*3/uL (160-400); Red Blood Count 3.46 X10*6/uL (4.60-5.80); SCAN SMEAR FLAG 1; White Blood Count 5.3 X10*3/uL (4.8-10.8)
[2020-02-23 22:51] LABS: INTERNATIONAL NORM RATIO 1.2 (0.9-1.1); Prothrombin Time 14.2 SEC (10.8-13.0)
[2020-02-23 22:54] LABS: Partial Thromboplastin Time 36.4 SEC (24.1-38.0)
[2020-02-23 23:03] LABS: SLIDE REVIEW VERIFIED
[2020-02-23 23:16] LABS: Alanine Aminotransferase 26 U/L (0-40); Alkaline Phosphatase 108 U/L (39-117); Anion Gap 16 (12-20); Aspartate Amino Transferase 41 U/L (5-37); Bilirubin Direct 0.2 mg/dL (0.0-0.5); Bilirubin Total 0.4 mg/dL (0.0-1.0); Blood Urea Nitrogen 42 mg/dL (9-16); Carbon Dioxide 20 mmol/L (22-29); Chloride 103 mmol/L (96-108); Creatinine Clr Calc Pharmacy 47.3; Estimated Glomerular Filt Rate 27; Glucose Random 167 mg/dL (60-115); Potassium 3.8 mmol/l (3.3-5.1); Sodium 135 mmol/L (135-145); Total Protein 5.6 g/dL (6.5-8.0)
[2020-02-23 23:33] LABS: Lipase 106 U/L (8-78)
[2020-02-24] VITALS (10 sets, daily range): BP systolic 145–170; BP diastolic 58–92; PULSE 70–102; RESP 16–98; TEMP 36.2–37; O2SAT 91–98; BMI 32.3
[2020-02-24 00:25] LABS: Influenza A PCR NEGATIVE (Negative); Influenza B PCR NEGATIVE (Negative); Resp Syncy Virus RNA Qual PCR NEGATIVE (Negative)
[2020-02-24 00:32] LABS: SARS COV2 PCR INHOUSE POSITIVE (Negative)
--- NOTE | 2020-02-24 00:52 | PC.NURSE ---
Patient dropping oxygen sats into the 80's Respiratory called to evaluate patient.
--- NOTE | 2020-02-24 01:14 | PC.NURSE ---
cigar packer and sorter aware of drop in oxygen and states as long as patient maintains sats no high flow oxygen is needed.
--- NOTE | 2020-02-24 01:47 | PC.NURSE ---
Called to give report but was told that nurse was in a room with a patient and could she call me back.
--- NOTE | 2020-02-24 01:54 | PC.NURSE ---
Report given and patient is ready for transport to the floor.
[2020-02-24] MEDS: 0.9 % Sodium Chloride 1,000 ML 100 ML IVCONT (03:31)
--- NOTE | 2020-02-24 03:44 | PC.NURSE ---
PT TRANSPORTED TO THE UNIT VIA STRETCHER. PT IS ALERT AND ORIENTED X 2. PT IS ON 4L OF O2 AND O2 SATS IS 93-95%, RR IS REGULAR, NO C/O PAIN. PT REPORTS LIVING WITH HIS SISTER AND BROTHER. PT REPORTS HIS SON IS HIS MACHINE SETTER SUPERVISOR AND ASSISTS HIM WITH ADL'S. PT STATES HE USES A CANE FOR ASSISTANCE WITH AMBULATION. PT WAS PROVIDED THE CALL [facility]RAZA AND SAFETY EXPLAINED. HIGH FALL RISK PROTOCOL IS IN PLACE.
--- NOTE | 2020-02-24 05:56 | P.HPHOSP_ITS ---
History of Present Illness Date of Service: 02/23/20 Chief Complaint: weakness, diarrhea this is a 54-year-old who has a past medical history of diabetes , CKD,and hypertension who presents the hospital with complaints of weakness patient is currently very lethargic, slightly confused, unable to really give me a good history but reports that he came into the ED because he has been having diarrhea for few days. He says no to most of my questions although appears very ill. He reports low appetite, vomiting. Denies any cough, shortness of breath. No other review of system can be obtained from patient of note patient was in the hospital for an EGD on the of this month. on arrival to the ED patient has a temp of 102.6?, pulse rate of 102, blood pressure 151/80, satting 96% on 2 L of oxygen. Labs are significant for BUN of 42, creatinine of 2.51, normal lactic acid, no leukocytosis, UA that is positive for blood and protein with negative for nitrates, leukocyte Estrace, positive benzos in UDS, positive COVID-19. CT of the chest shows bilateral ground-glass opacities concerning for viral pneumonia patient will be admitted for further management allergic past medical history is obtained mostly from chart as patient is too confused and lethargic to answer these questions past medical history: Diabetes, CKD, hypertension past surgical history: unknown family history: Unknown social history: Comes from home, no history of tobacco alcohol or illicit drugs Review of Systems Review of Systems: Yes all other systems are reviewed and are negative PMFSH Medical History Anxiety CKD (chronic kidney disease) stage 3, GFR 30-59 ml/min Depression Diabetes Diabetes type 2, uncontrolled Diabetic nephropathy associated with type 2 diabetes mellitus Diabetic neuropathy associated with type 2 diabetes mellitus Dyslipidemia GERD (gastroesophageal reflux disease) High cholesterol Hypercalcemia 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 Surgical History Hx of arthroscopy of knee Hx of arthroscopy of right knee Social History Household Members: Family Housing: House Do you presently have visiting nurse or other home services: Yes Alcohol intake: unknown Smoking Status: Never smoker Use of substances other than those prescribed or required for medical reasons: No Have you been hit, kicked, punched, or otherwise hurt by someone within the past year? If so, by whom?: No Do you feel safe in your current relationship?: No Current Relationship Is there a partner from a previous relationship who is making you feel unsafe now?: No Are you made to feel afraid or neglected: No Advance Directives: No Advance Directives Information Provided: No Do you have thoughts of harming others: None Do you have a plan to hurt others: No Plan Recently lost weight without trying: No Meds Allergies Allergy/AdvReac Type Severity Reaction Status Date / Time cephalexin [From KEFLEX] Allergy Mild ITCHY Verified 02/17/20 08:58 THROAT lisinopril [LISINOPRIL] Allergy Unknown SWELLING Verified 02/17/20 08:58 COUGH Home Medications Medication Instructions Recorded Confirmed Type atorvastatin 10 mg tablet 10 mg PO DAILY 02/02/20 02/23/20 History blood sugar diagnostic #10 ea 02/02/20 02/24/20 History famotidine 20 mg tablet 20 mg PO BID 02/02/20 02/24/20 History lancets 28 gauge #100 ea 02/02/20 02/24/20 History losartan 50 mg tablet 50 mg PO DAILY 02/02/20 02/24/20 History meclizine 25 mg tablet 25 mg PO Q6-8H PRN 02/02/20 02/24/20 History ondansetron HCl 4 mg tablet 4 mg PO Q6-8H PRN 02/02/20 02/24/20 History pen needle, diabetic 32 gauge x #50 ea 02/02/20 02/24/20 History /32 trazodone 150 mg tablet 150 mg PO BEDTIME 02/02/20 02/24/20 History triamcinolone acetonide 0.1 % 0.1 applic TOPICAL BID 02/02/20 02/24/20 History topical cream venlafaxine 150 mg 300 mg PO QAM 02/02/20 02/24/20 History capsule,extended release 24 hr cholecalciferol (vitamin D3) 1 cap PO DAILY 02/24/20 02/24/20 History [D3-2000] insulin glargine U-300 conc 80 unit SUBCUT DAILY 02/24/20 02/24/20 History [Brenna SoloStar U-300 Insulin] linagliptin [Tradjenta] 1 tab PO DAILY 02/24/20 02/24/20 History Physical Exam Vital Signs and Narrative: Vital Signs: Last Vital Signs Temp 98.0 F 02/24/20 03:11 Pulse 90 02/24/20 03:11 Resp 20 02/24/20 03:11 BP 168/88 H 02/24/20 03:11 Pulse Ox 97 02/24/20 03:11 Body Mass Index 32.3 Const: General: no acute distress and ill appearing Orientation/consciousness: oriented to person and oriented to place Eyes: General: appearance normal, both eyes and all related structures Pupils: Equal, round and reactive pupils present Resp: Effort & Inspection: normal respiratory effort Auscultation: clear to auscultation bilaterally Cardio: Rate: regular rate Rhythm: regular rhythm GI: Palpation (GI): Soft to palpation Auscultation: normal bowel sounds Skin: General skin exam: no rashes or lesions noted Neuro: Other: lethargic not oriented to time General: oriented to person and oriented to place Cranial nerves: Yes Equal, round and reactive pupils present Extrem: General: Yes normal to inspection and Yes no pedal edema Results Labs CBC and Chem 7: 02/23/20 22:33 02/23/20 22:33 Labs: Laboratory Results - last 24 hr 02/23/20 02/23/20 02/23/20 20:49 20:49 20:49 MCV MCH MCHC RDW Plt Count MPV Immature Gran % (Auto) Neut % (Auto) Lymph % (Auto) [place] % (Auto) Eos % (Auto) Baso % (Auto) Lymph # (Auto) [place] # (Auto) Eos # (Auto) Baso # (Auto) Abs Immat Gran (auto) Absolute Neuts (auto) Absolute Nucleated RBC Nucleated RBC % (auto) Smear Tech's Comments PT INR APTT Anion Gap Estim Creat Clear Calc Estimated GFR Random Glucose Lactic Acid 1.5 Calcium Magnesium 1.8 Total Bilirubin Direct Bilirubin AST ALT Alkaline Phosphatase Troponin I High Sens 14.0 B-Natriuretic Peptide < 10 Total Protein Albumin Lipase Urine Color Urine Appearance Urine pH Ur Specific [place] Urine Protein Urine Glucose (UA) Urine Ketones Urine Blood Urine Nitrite Ur Leukocyte Esterase Urine RBC Urine WBC Ur Squamous Epith Cells Urine Bacteria Urine Mucus Urine Opiates Screen Ur Barbiturates Screen Ur Phencyclidine Scrn Ur Amphetamines Screen U Benzodiazepines Scrn Urine Cocaine Screen U Marijuana (THC) Screen Ethyl Alcohol Coronavirus (PCR) Influenza Type A (PCR) Influenza Type B (PCR) RSV RNA Qual (PCR) 02/23/20 02/23/20 02/23/20 20:49 21:08 21:08 MCV MCH MCHC RDW Plt Count MPV Immature Gran % (Auto) Neut % (Auto) Lymph % (Auto) [place] % (Auto) Eos % (Auto) Baso % (Auto) Lymph # (Auto) [place] # (Auto) Eos # (Auto) Baso # (Auto) Abs Immat Gran (auto) Absolute Neuts (auto) Absolute Nucleated RBC Nucleated RBC % (auto) Smear Tech's Comments PT INR APTT Anion Gap Estim Creat Clear Calc Estimated GFR Random Glucose Lactic Acid Calcium Magnesium Total Bilirubin Direct Bilirubin AST ALT Alkaline Phosphatase Troponin I High Sens B-Natriuretic Peptide Total Protein Albumin Lipase Urine Color YELLOW Urine Appearance HAZY Urine pH 5.5 Ur Specific [place] >= 1.030 H Urine Protein 2+ H Urine Glucose (UA) NEG Urine Ketones NEG Urine Blood 2+ H Urine Nitrite NEG Ur Leukocyte Esterase NEG Urine RBC 1-4 Urine WBC 1-4 Ur Squamous Epith Cells 1+ Urine Bacteria 2+ Urine Mucus 1+ Urine Opiates Screen Not Detected Ur Barbiturates Screen Not Detected Ur Phencyclidine Scrn Not Detected Ur Amphetamines Screen Not Detected U Benzodiazepines Scrn POSITIVE H Urine Cocaine Screen Not Detected U Marijuana (THC) Screen Not Detected Ethyl Alcohol < 10 Coronavirus (PCR) Influenza Type A (PCR) Influenza Type B (PCR) RSV RNA Qual (PCR) 02/23/20 02/23/20 02/23/20 22:33 22:33 22:33 MCV 85.0 MCH 28.9 MCHC 34.0 RDW 12.0 Plt Count 136 L MPV 10.2 Immature Gran % (Auto) 0.6 H Neut % (Auto) 87.9 H Lymph % (Auto) 6.6 L [place] % (Auto) 4.9 Eos % (Auto) 0.0 Baso % (Auto) 0.0 Lymph # (Auto) 0.4 L [place] # (Auto) 0.3 Eos # (Auto) 0.0 Baso # (Auto) 0.0 Abs Immat Gran (auto) 0.03 Absolute Neuts (auto) 4.6 Absolute Nucleated RBC 0.000 Nucleated RBC % (auto) 0.0 Smear Tech's Comments VERIFIED PT 14.2 H INR 1.2 H APTT 36.4 Anion Gap 16 Estim Creat Clear Calc 47.3 Estimated GFR 27 Random Glucose 167 H Lactic Acid Calcium 8.0 L Magnesium Total Bilirubin 0.4 Direct Bilirubin 0.2 AST 41 H ALT 26 Alkaline Phosphatase 108 Troponin I High Sens B-Natriuretic Peptide Total Protein 5.6 L Albumin 3.0 L Lipase 106 H Urine Color Urine Appearance Urine pH Ur Specific [place] Urine Protein Urine Glucose (UA) Urine Ketones Urine Blood Urine Nitrite Ur Leukocyte Esterase Urine RBC Urine WBC Ur Squamous Epith Cells Urine Bacteria Urine Mucus Urine Opiates Screen Ur Barbiturates Screen Ur Phencyclidine Scrn Ur Amphetamines Screen U Benzodiazepines Scrn Urine Cocaine Screen U Marijuana (THC) Screen Ethyl Alcohol Coronavirus (PCR) Influenza Type A (PCR) Influenza Type B (PCR) RSV RNA Qual (PCR) 02/23/20 23:33 MCV MCH MCHC RDW Plt Count MPV Immature Gran % (Auto) Neut % (Auto) Lymph % (Auto) [place] % (Auto) Eos % (Auto) Baso % (Auto) Lymph # (Auto) [place] # (Auto) Eos # (Auto) Baso # (Auto) Abs Immat Gran (auto) Absolute Neuts (auto) Absolute Nucleated RBC Nucleated RBC % (auto) Smear Tech's Comments PT INR APTT Anion Gap Estim Creat Clear Calc Estimated GFR Random Glucose Lactic Acid Calcium Magnesium Total Bilirubin Direct Bilirubin AST ALT Alkaline Phosphatase Troponin I High Sens B-Natriuretic Peptide Total Protein Albumin Lipase Urine Color Urine Appearance Urine pH Ur Specific [place] Urine Protein Urine Glucose (UA) Urine Ketones Urine Blood Urine Nitrite Ur Leukocyte Esterase Urine RBC Urine WBC Ur Squamous Epith Cells Urine Bacteria Urine Mucus Urine Opiates Screen Ur Barbiturates Screen Ur Phencyclidine Scrn Ur Amphetamines Screen U Benzodiazepines Scrn Urine Cocaine Screen U Marijuana (THC) Screen Ethyl Alcohol Coronavirus (PCR) POSITIVE A Influenza Type A (PCR) NEGATIVE Influenza Type B (PCR) NEGATIVE RSV RNA Qual (PCR) NEGATIVE Imaging Radiologist's Impressions: Impressions Head CT 02/23/20 19:47 IMPRESSION: No acute intracranial pathology. Chest CT 02/23/20 19:48 IMPRESSION: Pulmonary findings fairly classic for Covid 19 pulmonary disease. Assessment and Plan (1) Sepsis: Status: Acute (2) Pneumonia due to 2019 novel coronavirus: Status: Acute (3) Encephalopathy due to COVID-19 virus: Status: Acute (4) Diabetes type 2, uncontrolled: Qualifiers: Glycemic state: with hyperglycemia Qualified Code(s): E11.65 - Type 2 diabetes mellitus with hyperglycemia Status: Acute (5) Hypertension: Qualifiers: Hypertension type: essential hypertension Qualified Code(s): I10 - Essential (primary) hypertension Status: Acute this is a 54-year-old gentleman with past medical history of diabetes and hypertension who presents to the hospital with complaints of weakness, diarrhea, and generally not doing well. Patient is currently lethargic, confused and found to have COVID-[address] chest as well as COVID-19 serology positive # sepsis - most likely secondary to COVID-19 infection - febrile, tachycardic as well as tachypneic plan: - Will administer dexamethasone 4 mg IV daily - IV fluids - follow cultures # COVID-19 pneumonia - satting 90% on room air, currently on 3 L satting 96% plan: - Received 10 mg of dexamethasone in the ED, will continue with 4 mg daily - monitor respiratory status closely # COVID-19 cephalopathy - patient oriented to self and place but not to time, walks as and wanes during my interview - monitor # diabetes mellitus - continue home insulin - monitor for hypoglycemia - low-dose sliding scale insulin - diabetic diet # hypertension - stable - continue home regimen # hyperlipidemia - continue statin # depression and anxiety - hold clonazepam given altered mentation, continue venlafax DVT prophylaxis: Lovenox
--- NOTE | 2020-02-24 07:51 | PC.NURSE ---
Pt wanted flu shot. Pt has had fevers and is COVID +. will reassess administration at time of discharge
[2020-02-24 08:12] LABS: Glucose, Whole Blood 389 mg/dL (60-115)
[2020-02-24] MEDS: Insulin Lispro 100 UNIT/ML 3 ML VIAL 20 UNIT SUBCUT ×3 (08:27→16:50)
[2020-02-24] MEDS: Atorvastatin Calcium 10 MG TABLET PO (08:28)
[2020-02-24] MEDS: Famotidine 20 MG TABLET PO ×2 (08:28→21:23)
[2020-02-24] MEDS: dexAMETHasone sod phosphate 4 MG/ML VIAL 6 MG IVPUSH (08:28)
[2020-02-24] MEDS: Insulin Glargine,Hum.rec.anlog 100 UNIT/ML 10 ML VIAL 64 UNIT SUBCUT (08:28)
[2020-02-24] MEDS: Venlafaxine HCl ER 150 MG CAP.ER.24H 300 MG PO (08:28)
--- NOTE | 2020-02-24 08:28 | P.CDIC_ITS ---
CDI Concurrent Query Service Date: 02/25/20 Documentation Clarification: Please clarify if you are treating a proba ble/suspected/likely or confirmed: Septic Encephalopathy Metabolic and or toxic Encephalopathy Please specify if known Provider Response: Metabolic Encephalopathy PLEASE DO NOT DELETE/MODIFY EXISTING CONTENT Additional information is needed in order to code to the highest accuracy and appropriate Severity of Illness (SOI). Please clarify the information noted below in your progress notes and discharge summary. Risk Factors/Clinical Indicators/Treatments AMS, confused, patient unable to swallow meds due to AMS, lethargic, ill appearing. Sepsis due to covid-19/pneumonia. H&P: Assessment/plan: Covid-19 cephalopathy. CDS: Lana Godfrey CCS, CDIS Contact Number: [phone] Please Review the information above and exercise your independent professional judgment in responding to the query. If you concur, pleas document in the PROGRESS NOTES and DISCHARGE SUMMARY. If you do not agree with the query, please document in the query above. THIS QUERY IS PART OF THE PERMANENT MEDICAL RECORD
[2020-02-24] MEDS: Enoxaparin Sodium 40 MG/0.4 ML SYRINGE SUBCUT (08:29)
[2020-02-24] MEDS: Metoclopramide HCl 5 MG TABLET PO ×4 (08:29→21:23)
[2020-02-24] MEDS: hydroCHLOROthiazide 25 MG TABLET PO (08:29)
[2020-02-24] MEDS: Losartan Potassium 50 MG TABLET PO (08:29)
[2020-02-24] MEDS: amLODIPine Besylate 5 MG TABLET PO (09:54)
[2020-02-24 11:39] LABS: Glucose, Whole Blood 451 mg/dL (60-115)
[2020-02-24] MEDS: Insulin Lispro 100 UNIT/ML 3 ML VIAL SUBCUT ×4 (11:43→21:22)
--- NOTE | 2020-02-24 11:58 | MHC.CM.PN ---
IMM 02/24/2020 MALE 54 DX COVID+ HE LIVES WITH FAMILY. HE HAS [facility] TO ASSIST WITH ADLS. DP HOME WITH [facility]. RESUMPTION OF [facility] SERVICES. PT WILL NEED ASSIST WITH TRANSPORTATION AT [place]. CM WILL FOLLOW.
[2020-02-24 12:45] LABS: Glucose, Whole Blood 397 mg/dL (60-115)
--- NOTE | 2020-02-24 14:05 | W.PM.IDCN ---
History of Present Illness Data of Consult Service Date: 02/24/20 Requesting physician: Erica Peres Primary Care Provider: Unknown Physician HPI Reason for consult: shortness of breath He presents with weakness for last 2-3 days He has no fever or chills,nausea,vomiting or diarrhea He has oxygen saturation on 2 l of 90-93% and at 4 liters 97%z He is on steroids Review of Systems Review of Systems: Yes Unobtainable due to mental status PMFSH Past Medical History Medical History Anxiety CKD (chronic kidney disease) stage 3, GFR 30-59 ml/min Depression Diabetes Diabetes type 2, uncontrolled Diabetic nephropathy associated with type 2 diabetes mellitus Diabetic neuropathy associated with type 2 diabetes mellitus Dyslipidemia GERD (gastroesophageal reflux disease) High cholesterol Hypercalcemia Hypertension residential (current) use 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 Surgical History Surgical History History of esophagogastroduodenoscopy (EGD) Hx of arthroscopy of knee Hx of arthroscopy of right knee Social History Social History Household Members: Family Housing: House Alcohol intake: current Alcohol intake frequency: does not drink Smoking Status: Never smoker service: No Current occupational status: disabled Meds Allergies Allergy/AdvReac Type Severity Reaction Status Date / Time cephalexin [From KEFLEX] Allergy Mild ITCHY Verified 03/22/20 11:10 THROAT lisinopril [LISINOPRIL] Allergy Unknown SWELLING Verified 03/22/20 11:10 COUGH Home Medications Medication Instructions Recorded Confirmed Type atorvastatin 10 mg tablet 10 mg PO DAILY 02/02/20 03/22/20 History blood sugar diagnostic #10 ea 02/02/20 03/22/20 History lancets 28 gauge #100 ea 02/02/20 03/22/20 History meclizine 25 mg tablet 25 mg PO Q6-8H PRN 02/02/20 03/22/20 History ondansetron HCl 4 mg tablet 4 mg PO Q6-8H PRN 02/02/20 03/22/20 History pen needle, diabetic 32 gauge x #50 ea 02/02/20 03/22/20 History triamcinolone acetonide 0.1 % 0.1 applic TOPICAL BID 02/02/20 03/22/20 History topical cream Toujeo SoloStar U-300 Insulin 80 unit SUBCUT DAILY 02/24/20 03/22/20 History Tradjenta 1 tab PO DAILY 02/24/20 03/22/20 History Physical Exam Vital Signs: Vital Signs: Last Vital Signs Temp 97.3 F 02/24/20 11:17 Pulse 93 02/24/20 11:17 Resp 18 02/24/20 11:17 BP 170/92 H 02/24/20 11:17 Pulse Ox 97 02/24/20 11:17 Body Mass Index 32.3 Const: General: no acute distress HENMT: Head: Yes normal to inspection Mouth: Normal oral and palatal mucosa present Eyes: General: appearance normal, both eyes and all related structures Resp: Effort & Inspection: normal respiratory effort and able to speak in complete sentences Cardio: Rate: regular rate Rhythm: regular rhythm GI: Inspection: Yes normal to inspection Palpation (GI): nontender : General: Yes no CVA tenderness Back/Spine/Pelvis: Back: no CVA tenderness Skin: General skin exam: no rashes or lesions noted Assessment and Plan (1) Encephalopathy due to COVID-19 virus: Status: Resolved Continue current plan Dexamethasone helps survival No Remdesivir as unlikely to do much here per WHO's Solidarity Trial and our own internal observations ,continue Dexamethasone and oxygen (2) Sepsis: Status: Resolved Results Labs CBC & Chem 7: 02/26/20 05:43 02/26/20 05:43 Labs: Short CBC 02/23/20 Range/Units 22:33 WBC 5.3 (4.8-10.8) X10*3/uL Hgb 10.0 L (14.0-18.0) g/dl Hct 29.4 L (42-52) % Plt Count 136 L (160-400) X10*3/uL BMP 02/23/20 22:33 Sodium 135 Potassium 3.8 Chloride 103 Carbon Dioxide 20 L BUN 42 H Creatinine 2.51 H Calcium 8.0 L Liver Function 11/24/20 Range/Units 22:33 Total Bilirubin 0.4 (0.0-1.0) mg/dL Direct Bilirubin 0.2 (0.0-0.5) mg/dL AST 41 H (5-37) U/L ALT 26 (0-40) U/L Alkaline Phosphatase 108 (39-117) U/L Albumin 3.0 L (3.5-5.0) g/dL Urine 02/23/20 Range/Units 21:08 Urine Color YELLOW Urine Appearance HAZY Urine pH 5.5 (5.0-8.0) Ur Specific [place] >= 1.030 H (1.005-1.025) Urine Protein 2+ H (NEG-TRACE) MG/DL Urine Glucose (UA) NEG (NEG) MG/DL
--- NOTE | 2020-02-24 14:07 | PC.NURSE ---
Pt satting 97-98% on 4L NC Decreased NC to 2L, pt satting 98%. Will continue to monitor
[2020-02-24 16:26] LABS: Glucose, Whole Blood 303 mg/dL (60-115)
--- NOTE | 2020-02-24 16:28 | PC.NURSE ---
Pt POC this mornign was 389. Message sent to , hold scheduled SSI, gava lantus and humalog per EMAR. Lunch POC was 451, notified MD, give 10 units SSI now and recheck POC prior to pt eating. Recheck POC was 397, ordered to give SSI, 20 scheduled units of humalog. will continue to monitor
[2020-02-24] MEDS: 0.9 % Sodium Chloride Flush 3 ML SYRINGE IVFLUSH (16:50)
--- NOTE | 2020-02-24 17:18 | PC.NURSE ---
Spoke with pt's sister who is his HCP. Updated on daily plan, pts increase o2 needs and plan. Sister states he normally walks by himself at home and occasionally uses cane when needed.
[2020-02-24] MEDS: Acetaminophen 325 MG TABLET 650 MG PO (20:25)
[2020-02-24 20:39] LABS: Glucose, Whole Blood 214 mg/dL (60-115)
[2020-02-24] MEDS: clonazePAM 1 MG TABLET PO (21:49)
[2020-02-24] MEDS: traZODone HCL 50 MG TABLET 150 MG PO (21:49)
[2020-02-25] VITALS (9 sets, daily range): BP systolic 133–150; BP diastolic 73–95; PULSE 77–114; RESP 14–20; TEMP 35.9–36.9; O2SAT 90–93
[2020-02-25] MEDS: 0.9 % Sodium Chloride Flush 3 ML SYRINGE IVFLUSH ×3 (00:02→16:28)
[2020-02-25] MEDS: Enoxaparin Sodium 40 MG/0.4 ML SYRINGE SUBCUT (06:33)
[2020-02-25 07:31] LABS: Hematocrit 35.1 % (42-52); Mean Corpuscular HGB Conc 34.2 g/dl (31.0-36.0); Mean Corpuscular Hemoglobin 29.3 pg (27.0-33.0); Mean Corpuscular Volume 85.8 fL (80-98); Mean Platelet Volume 10.6 fL (9.4-12.4); Platelet Count 201 X10*3/uL (160-400); Red Blood Count 4.09 X10*6/uL (4.60-5.80); Red Cell Distribution Width 11.9 % (11.0-16.0); White Blood Count 9.9 X10*3/uL (4.8-10.8)
[2020-02-25 08:00] LABS: Glucose, Whole Blood 142 mg/dL (60-115)
[2020-02-25 08:02] LABS: Alanine Aminotransferase 30 U/L (0-40); Albumin Level 3.3 g/dL (3.5-5.0); Alkaline Phosphatase 104 U/L (39-117); Anion Gap 15 (12-20); Aspartate Amino Transferase 45 U/L (5-37); Bilirubin Direct 0.2 mg/dL (0.0-0.5); Bilirubin Total 0.3 mg/dL (0.0-1.0); Blood Urea Nitrogen 55 mg/dL (9-16); Calcium 8.4 mg/dL (8.4-10.2); Carbon Dioxide 22 mmol/L (22-29); Chloride 104 mmol/L (96-108); Estimated Glomerular Filt Rate 31; Glucose Random 108 mg/dL (60-115); Potassium 4.6 mmol/l (3.3-5.1); Sodium 136 mmol/L (135-145); Total Protein 6.6 g/dL (6.5-8.0)
[2020-02-25] MEDS: Insulin Lispro 100 UNIT/ML 3 ML VIAL 20 UNIT SUBCUT ×3 (08:20→16:47)
[2020-02-25] MEDS: Insulin Glargine,Hum.rec.anlog 100 UNIT/ML 10 ML VIAL 70 UNIT SUBCUT (08:20)
[2020-02-25] MEDS: Venlafaxine HCl ER 150 MG CAP.ER.24H 300 MG PO (08:21)
[2020-02-25] MEDS: Metoclopramide HCl 5 MG TABLET PO ×4 (08:21→21:41)
[2020-02-25] MEDS: dexAMETHasone sod phosphate 4 MG/ML VIAL 6 MG IVPUSH (08:21)
[2020-02-25] MEDS: Losartan Potassium 50 MG TABLET PO (08:21)
[2020-02-25] MEDS: clonazePAM 1 MG TABLET PO (08:21)
[2020-02-25] MEDS: Famotidine 20 MG TABLET PO ×2 (08:21→21:41)
[2020-02-25] MEDS: Atorvastatin Calcium 10 MG TABLET PO (08:21)
[2020-02-25] MEDS: amLODIPine Besylate 5 MG TABLET PO (08:22)
[2020-02-25 09:57] LABS: Basophils Percent Auto 0.1 % (0-2); Imm Gran Abs Auto 0.07 X10*3/uL (0.00-0.03); Imm Gran Pct Auto 0.7 % (0.0-0.4); Lymphocytes Absolute Auto 0.6 X10*3/uL (1.2-4.9); Lymphocytes Percent Auto 6.1 % (20-40); MANUAL DIFF FLAG SCAN; Monocytes Absolute Auto 0.8 X10*3/uL (0.1-1.2); Monocytes Percent Auto 7.4 % (2-11); Neutrophils Absolute Auto 8.9 X10*3/uL (2.0-8.3); Neutrophils Percent Auto 85.7 % (45-73); SCAN SMEAR FLAG 1
[2020-02-25 10:14] LABS: SLIDE REVIEW VERIFIED
[2020-02-25 11:41] LABS: Glucose, Whole Blood 143 mg/dL (60-115)
--- NOTE | 2020-02-25 14:22 | HO.PM.IMPN ---
Subjective Subjective Date of Service: 02/25/20 Interval History: the patient was seen and evaluated this morning Laying in bed, feels comfortable Denies any fever, chills Still complaining of mild shortness of breath and cough No reported other overnight events. Systemic review: No fever, chills or weakness No chest pain, palpitation Mild shortness of breath or coughing No abdominal pain, nausea or vomiting No urinary symptoms No any rash or wounds Physical Exam Vital Signs: Vital Signs: Last Vital Signs Temp 96.6 F L 02/25/20 08:00 Pulse 100 02/25/20 08:22 Resp 18 02/25/20 08:00 BP 133/95 H 02/25/20 08:22 Pulse Ox 93 02/25/20 08:00 Body Mass Index 32.3 Constitutional : Alert, oriented, not in distress Neck : Normal inspection, Supple Cardiovascular : RRR, S1 S2, no lower extremity edema Respiratory : Fair bilateral air entry, no crackles, fine scattered wheezes and rhonchi Gastrointestinal: soft, lax, Normal bowel sounds, Non tender Skin : Warm/Dry, No rash Neurological : Alert & oriented x3, No focal deficit Objective Data Current Medications Generic Name Dose Route Start Last Admin Trade Name Freq PRN Reason Stop Dose Admin Acetaminophen 650 mg 02/24/20 02:56 02/24/20 20:25 Acetaminophen 325 Mg Tablet PO 650 mg Q6H PRN Administration Pain, Mild (Pain Scale 1-3) Amlodipine Besylate 5 mg 02/24/20 09:00 02/25/20 08:22 Amlodipine Besylate 5 Mg Tablet PO 5 mg DAILY RADHA Administration Protocol Atorvastatin Calcium 10 mg 02/24/20 09:00 02/25/20 08:21 Atorvastatin Calcium 10 Mg Tablet PO 10 mg DAILY RADHA Administration Clonazepam 1 mg 02/24/20 21:30 02/25/20 08:21 Clonazepam 1 Mg Tablet PO 1 mg TID RADHA Administration Dexamethasone Sodium Phosphate 6 mg 02/24/20 09:00 02/25/20 08:21 Dexamethasone Sod Phosphate 4 Mg/Ml Vial IVPUSH 6 mg DAILY RADHA Administration Docusate Sodium 100 mg 02/24/20 02:56 Docusate Sodium 100 Mg Capsule PO DAILY PRN Constipation Enoxaparin Sodium 40 mg 02/24/20 06:00 02/25/20 06:33 Enoxaparin Sodium 40 Mg/0.4 Ml Syringe SUBCUT 40 mg Q24H RADHA Administration Famotidine 20 mg 02/24/20 09:00 02/25/20 08:21 Famotidine 20 Mg Tablet PO 20 mg BID RADHA Administration Insulin Glargine 70 unit 02/25/20 09:00 02/25/20 08:20 Insulin Glargine,Hum.Rec.Anlog 100 Unit/Ml 10 Ml Vial SUBCUT 70 unit DAILY RADHA Administration Insulin Human Lispro 20 unit 02/24/20 07:30 02/25/20 12:06 Insulin Lispro 100 Unit/Ml 3 Ml Vial SUBCUT 20 unit [facility] Administration Insulin Human Lispro 0 unit 02/24/20 07:30 02/25/20 12:18 Insulin Lispro 100 Unit/Ml 3 Ml Vial SUBCUT Not Given QIDACHS [facility] Protocol Losartan Potassium 50 mg 02/24/20 09:00 02/25/20 08:21 Losartan Potassium 50 Mg Tablet PO 50 mg DAILY RADHA Administration Protocol Meclizine HCl 25 mg 02/24/20 05:56 Meclizine Hcl 25 Mg Tablet PO Q6H PRN Dizziness Metoclopramide HCl 5 mg 02/24/20 09:00 02/25/20 12:06 Metoclopramide Hcl 5 Mg Tablet PO 5 mg QID [facility] Administration Ondansetron HCl 4 mg 02/24/20 02:56 Ondansetron Hcl 4 Mg/2 Ml Vial IVPUSH Q8H PRN Nausea and Vomiting Pharmacy Consult 1 each 02/23/20 22:03 Consult Rx Perform Med Rec MISCELLANE ONCE PRN Consult order Sodium Chloride 3 ml 02/24/20 08:00 02/25/20 08:22 0.9 % Sodium Chloride Flush 3 Ml Syringe IVFLUSH 3 ml QSHIFT [facility] Administration Trazodone HCl 150 mg 02/24/20 21:30 02/24/20 21:49 Trazodone Hcl 50 Mg Tablet PO 150 mg BEDTIME [facility] Administration Venlafaxine HCl 300 mg 02/24/20 09:00 02/25/20 08:21 Venlafaxine Hcl Er 150 Mg Cap.Er.24h PO 300 mg DAILY RADHA Administration Labs CBC & Chem 7: 02/25/20 06:40 02/25/20 06:40 Microbiology Microbiology Results: Microbiology 02/23/20 20:49 Blood - Venous Blood Culture - Preliminary No growth after 24 hours. 02/23/20 20:49 Blood - Venous Blood Culture - Preliminary No growth after 24 hours. Assessment and Plan (1) Sepsis: Status: Acute (2) Pneumonia due to 2019 novel coronavirus: Status: Acute (3) Encephalopathy due to COVID-19 virus: Status: Acute (4) Diabetes type 2, uncontrolled: Status: Acute (5) Hypertension: Status: Acute Assessment and Plan: This is a 54-year-old gentleman with past medical history of diabetes and hypertension who presents to the hospital with complaints of weakness, diarrhea, and generally not doing well. Patient is currently lethargic, confused and found to have COVID-[address] chest as well as COVID-19 serology positive sepsis, resolve secondary to COVID-19 infection Continue dexamethasone 6 mg IV daily DC IV fluids Wean down O2 as tolerated follow cultures Id input appreciated, no need for remdesivir at this point Metabolic encephalopathy Improving Could be secondary to infection itself On 1 mg clonazepam t.i.d., to decrease the dose to 0.5 mg for now Recurrent reorientation Hyperglycemia secondary to diabetes mellitus Increase Lantus to 70 units daily low-dose sliding scale insulin diabetic diet hypertension stable continue home regimen hyperlipidemia continue statin depression and anxiety Decrease the dose of clonazepam continue venlafax DVT prophylaxis Lovenox
[2020-02-25] MEDS: clonazePAM 0.5 MG TABLET PO ×2 (16:26→21:41)
[2020-02-25 16:33] LABS: Glucose, Whole Blood 150 mg/dL (60-115)
--- NOTE | 2020-02-25 18:18 | PC.NURSE ---
Addendum entered by Rosaura Garcia RN 02/25/20 18:22: Pt did still have nonproductive cough as well today Original Note: Weaned pt off o2 in am - on room air most of the day sat 92-94% - no complaints of SOB. Pt walked with RN to bathroom and did appear a bit steady/shaky -pt did say he felt some dizziness- recovered well when sitting down. Pt states he sometimes uses a cane at home but no other assisstive advice. call santiago within reach. [place] risk measures remain in place.
[2020-02-25] MEDS: Acetaminophen 325 MG TABLET 650 MG PO (19:48)
[2020-02-25 20:04] LABS: Glucose, Whole Blood 82 mg/dL (60-115)
[2020-02-25 21:38] LABS: Glucose, Whole Blood 145 mg/dL (60-115)
[2020-02-25] MEDS: traZODone HCL 50 MG TABLET 150 MG PO (21:41)
[2020-02-26] MEDS: 0.9 % Sodium Chloride Flush 3 ML SYRINGE IVFLUSH ×2 (01:06→08:21)
[2020-02-26 03:28] VITALS: BP 154/88; PULSE 70; RESP 18; TEMP 36.8; O2SAT 91
[2020-02-26] MEDS: Enoxaparin Sodium 40 MG/0.4 ML SYRINGE SUBCUT (06:12)
[2020-02-26 07:16] LABS: Hematocrit 33.4 % (42-52); Hemoglobin 11.2 g/dl (14.0-18.0); Mean Corpuscular HGB Conc 33.5 g/dl (31.0-36.0); Mean Corpuscular Hemoglobin 28.9 pg (27.0-33.0); Mean Corpuscular Volume 86.1 fL (80-98); Mean Platelet Volume 10.5 fL (9.4-12.4); Platelet Count 240 X10*3/uL (160-400); Red Blood Count 3.88 X10*6/uL (4.60-5.80); Red Cell Distribution Width 11.9 % (11.0-16.0); White Blood Count 10.8 X10*3/uL (4.8-10.8)
[2020-02-26 08:00] VITALS: PULSE 74
[2020-02-26 08:04] LABS: Alanine Aminotransferase 29 U/L (0-40); Albumin Level 3.1 g/dL (3.5-5.0); Alkaline Phosphatase 98 U/L (39-117); Anion Gap 16 (12-20); Aspartate Amino Transferase 35 U/L (5-37); Bilirubin Direct 0.2 mg/dL (0.0-0.5); Bilirubin Total 0.5 mg/dL (0.0-1.0); Blood Urea Nitrogen 52 mg/dL (9-16); Calcium 8.1 mg/dL (8.4-10.2); Carbon Dioxide 22 mmol/L (22-29); Chloride 103 mmol/L (96-108); Creatinine Clr Calc Pharmacy 52.7; Estimated Glomerular Filt Rate 38; Glucose Random 174 mg/dL (60-115); Potassium 4.6 mmol/l (3.3-5.1); Sodium 136 mmol/L (135-145)
[2020-02-26] MEDS: Insulin Lispro 100 UNIT/ML 3 ML VIAL 20 UNIT SUBCUT ×2 (08:17→11:52)
[2020-02-26] MEDS: amLODIPine Besylate 5 MG TABLET PO (08:20)
[2020-02-26] MEDS: clonazePAM 0.5 MG TABLET PO (08:20)
[2020-02-26] MEDS: Losartan Potassium 50 MG TABLET PO (08:20)
[2020-02-26] MEDS: Metoclopramide HCl 5 MG TABLET PO ×2 (08:20→11:53)
[2020-02-26] MEDS: Atorvastatin Calcium 10 MG TABLET PO (08:20)
[2020-02-26] MEDS: Venlafaxine HCl ER 150 MG CAP.ER.24H 300 MG PO (08:20)
[2020-02-26] MEDS: dexAMETHasone sod phosphate 4 MG/ML VIAL 6 MG IVPUSH (08:21)
[2020-02-26] MEDS: Famotidine 20 MG TABLET PO (08:21)
[2020-02-26 08:33] LABS: Glucose, Whole Blood 175 mg/dL (60-115)
[2020-02-26] MEDS: Insulin Glargine,Hum.rec.anlog 100 UNIT/ML 10 ML VIAL 70 UNIT SUBCUT (09:37)
--- NOTE | 2020-02-26 10:16 | MHC.CM.PN ---
DP home with [facility] resumption of services. RN and [facility] ARCHITECT program in place. Transport via BLS.
--- NOTE | 2020-02-26 11:22 | P.DS_ITS ---
DS: Providers Provider Date of admission: 02/24/20 00:11 Primary care physician: Unknown Physician Consults: 02/24/20 08:47 Consult to Infectious Diseases Routine Consulting Provider: Meaghan Cruz Reason for consultation: Covid19 infection, need for Remdesivir. for your kind eval DS: Diagnosis Discharge Diagnosis (1) Sepsis: Status: Acute (2) Pneumonia due to 2019 novel coronavirus: Status: Acute (3) Encephalopathy due to COVID-19 virus: Status: Acute (4) Diabetes type 2, uncontrolled: Status: Acute (5) Hypertension: Status: Acute (6) COVID-19: Status: Acute (7) CKD (chronic kidney disease) stage 3, GFR 30-59 ml/min: Status: Acute (8) Diabetic neuropathy associated with type 2 diabetes mellitus: Status: Acute DS: Medications Discharge Medications Home Medications: Home Medications Medication Instructions Recorded Confirmed atorvastatin 10 mg tablet 10 mg PO DAILY 02/02/20 02/23/20 blood sugar diagnostic #10 ea 02/02/20 02/24/20 famotidine 20 mg tablet 20 mg PO BID 02/02/20 02/24/20 lancets 28 gauge #100 ea 02/02/20 02/24/20 losartan 50 mg tablet 50 mg PO DAILY 02/02/20 02/24/20 meclizine 25 mg tablet 25 mg PO Q6-8H PRN 02/02/20 02/24/20 ondansetron HCl 4 mg tablet 4 mg PO Q6-8H PRN 02/02/20 02/24/20 pen needle, diabetic 32 gauge x #50 ea 02/02/20 02/24/20 trazodone 150 mg tablet 150 mg PO BEDTIME 02/02/20 02/24/20 triamcinolone acetonide 0.1 % 0.1 applic TOPICAL BID 02/02/20 02/24/20 topical cream venlafaxine 150 mg 300 mg PO QAM 02/02/20 02/24/20 capsule,extended release 24 hr Toujeo SoloStar U-300 Insulin 80 unit SUBCUT DAILY 02/24/20 02/24/20 Tradjenta 1 tab PO DAILY 02/24/20 02/24/20 cholecalciferol (vitamin D3) 1 cap PO DAILY 11/25/20 11/25/20 [D3-2000] Previous Rx's Medication Instructions Recorded hydrochlorothiazide 25 mg tablet 25 mg PO DAILY 90 Days #90 tab 01/04/20 insulin aspart U-100 100 unit/mL 20 unit SUBCUT TID 30 Days #30 ml 02/02/20 (3 mL) subcutaneous pen metoclopramide HCl 5 mg tablet 5 mg PO QID 30 Days #120 tab 02/17/20 clonazepam 0.5 mg PO TID #90 tab 02/26/20 dexamethasone 6 mg PO DAILY #7 tab 02/26/20 DS: Summary Hospital Course Hospital Course: Admission note HPI this is a 54-year-old who has a past medical history of diabetes , CKD,and hypertension who presents the hospital with complaints of weakness patient is currently very lethargic, slightly confused, unable to really give me a good history but reports that he came into the ED because he has been having diarrhea for few days. He says no to most of my questions although appears very ill. He reports low appetite, vomiting. Denies any cough, shortness of breath. No other review of system can be obtained from patient of note patient was in the hospital for an EGD on the of this month. on arrival to the ED patient has a temp of 102.6?, pulse rate of 102, blood pressure 151/80, satting 96% on 2 L of oxygen. Labs are significant for BUN of 42, creatinine of 2.51, normal lactic acid, no leukocytosis, UA that is positive for blood and protein with negative for nitrates, leukocyte Estrace, positive benzos in UDS, positive COVID-19. CT of the chest shows bilateral ground-glass opacities concerning for viral pneumonia patient will be admitted for further management allergic past medical history is obtained mostly from chart as patient is too confused and lethargic to answer these questions Hospital course The patient was admitted to the hospital for lethargy, confusion and diarrhea. Found to have COVID-19 infection. Treated with oxygen supplement, IV dexamethasone and nausea medications with good response. His home dose clonazepam was decreased from 1 mg t.i.d. to 0.5 mg t.i.d., advised to cut it down more in a week or so. It is likely the reason behind his confusion at time of presentation giving worsen CKD at that point. His mental status improved back to baseline and kidney function as well. Evaluated by infectious disease specialist who recommended treatment only with dexamethasone. Patient did not spike any fever for the last 48 hours in the hospital stay. Has been off the oxygen and ambulating in the room with no reported shortness of breath. Blood cultures remain negative during the hospital stay. To continue 7 more days of oral dexamethasone at home To decrease clonazepam to 0.5 mg 3 times a day, consider further decrease as tolerated Advised to come back to the hospital if noticed worsening shortness of breath, fever or chest pain Time Spent with Patient Time attestation: Total time spent providing and/or coordinating discharge services: Physical Exam Vital Signs: Vital Signs: Last Vital Signs Temp 98.2 F 02/26/20 03:28 Pulse 74 02/26/20 08:00 Resp 18 02/26/20 03:28 BP 154/88 H 02/26/20 03:28 Pulse Ox 91 L 02/26/20 03:28 Body Mass Index 32.3 Constitutional : Alert, oriented, not in distress Neck : Normal inspection, Supple Cardiovascular : RRR, S1 S2, no lower extremity edema Respiratory : Fair bilateral air entry, no crackles, no wheezes and rhonchi Gastrointestinal: soft, lax, Normal bowel sounds, Non tender Skin : Warm/Dry, No rash Neurological : Alert & oriented x3, No focal deficit DS: Data Data Completed and Pending Labs on day of discharge: 02/23/20 19:47 ECG 12 lead EKG Stat EKG Documentation DIRECTED CT head/brain wo con Stat Albuterol Sulfate [Ventolin] 2 puff INHALE ONCE ONE dexAMETHasone sod phosphate [Decadron] 10 mg IVPUSH ONCE ONE 02/23/20 19:48 CT chest wo con Stat 02/23/20 20:00 0.9 % Sodium Chloride [Ns] 1,000 ml IVCONT 999 mls/hr 02/23/20 20:15 Acetaminophen Supp [Tylenol Supp] 650 mg NM ONCE ONE Ketorolac Tromethamine [Toradol] 30 mg IVPUSH ONCE ONE 02/23/20 20:45 Lactated Ringers [Lr] 1,000 ml IVCONT 999 mls/hr 02/23/20 20:49 B Type Natriuretic Peptide Stat Ethanol Stat Lactic Acid Stat Magnesium Stat Troponin-I High Sensitivity Stat 02/23/20 21:08 Drug Screen Urine Stat 02/23/20 22:33 Basic Metabolic Panel Stat Complete Blood Count Auto Diff Stat Lipase Stat Liver Panel Stat Partial Thromboplastin Time Stat Prothrombin Time INR Stat SLIDE REVIEW Stat 02/23/20 23:33 SARS-CoV2/FLU/RSV Stat 02/24/20 00:02 Transfer Order Routine 02/24/20 02:56 0.9 % Sodium Chloride [Ns] 1,000 ml IVCONT 100 mls/hr 02/24/20 03:14 Flu Vacc [id number](6mos up)/PF [Fluarix Quad [id number]] 0.5 ml IM .ONCE ONE 02/24/20 07:53 Glucose, Whole Blood Routine 02/24/20 09:00 Insulin Glargine,Hum.rec.anlog [Lantus] 64 unit SUBCUT DAILY hydroCHLOROthiazide [Microzide] 25 mg PO DAILY 02/24/20 11:19 Glucose, Whole Blood Routine 02/24/20 12:41 Glucose, Whole Blood Routine 02/24/20 16:20 Glucose, Whole Blood Routine 02/24/20 20:34 Glucose, Whole Blood Routine 02/24/20 21:30 clonazePAM [KlonoPIN] 1 mg PO TID 02/25/20 06:40 Basic Metabolic Panel DAILY@0600 Complete Blood Count Auto Diff Routine Liver Panel Routine SLIDE REVIEW Routine 02/25/20 07:54 Glucose, Whole Blood Routine 02/25/20 11:35 Glucose, Whole Blood Routine 02/25/20 16:27 Glucose, Whole Blood Routine 02/25/20 19:58 Glucose, Whole Blood Routine 02/25/20 21:35 Glucose, Whole Blood Routine 02/26/20 05:43 Basic Metabolic Panel DAILY@0600 Complete Blood Count no Diff DAILY@0600 Liver Panel Routine 02/26/20 08:11 Glucose, Whole Blood Routine Laboratory Last Values WBC 10.8 X10*3/uL (4.8-10.8) 02/26/20 05:43 RBC 3.88 X10*6/uL (4.60-5.80) L 02/26/20 05:43 Hgb 11.2 g/dl (14.0-18.0) L 02/26/20 05:43 Hct 33.4 % (42-52) L 02/26/20 05:43 MCV 86.1 fL (80-98) 02/26/20 05:43 MCH 28.9 pg (27.0-33.0) 02/26/20 05:43 MCHC 33.5 g/dl (31.0-36.0) 02/26/20 05:43 RDW 11.9 % (11.0-16.0) 02/26/20 05:43 Plt Count 240 X10*3/uL (160-400) 02/26/20 05:43 MPV 10.5 fL (9.4-12.4) 02/26/20 05:43 Immature Gran % (Auto) 0.7 % (0.0-0.4) H 02/25/20 06:40 Neut % (Auto) 85.7 % (45-73) H 02/25/20 06:40 Lymph % (Auto) 6.1 % (20-40) L 02/25/20 06:40 [place] % (Auto) 7.4 % (2-11) 02/25/20 06:40 Eos % (Auto) 0.0 % (0-4) 02/25/20 06:40 Baso % (Auto) 0.1 % (0-2) 02/25/20 06:40 Lymph # (Auto) 0.6 X10*3/uL (1.2-4.9) L 02/25/20 06:40 [place] # (Auto) 0.8 X10*3/uL (0.1-1.2) 02/25/20 06:40 Eos # (Auto) 0.0 X10*3/uL (0.0-0.4) 02/25/20 06:40 Baso # (Auto) 0.0 X10*3/uL (0.0-0.2) 02/25/20 06:40 Abs Immat Gran (auto) 0.07 X10*3/uL (0.00-0.03) H 02/25/20 06:40 Absolute Neuts (auto) 8.9 X10*3/uL (2.0-8.3) H 02/25/20 06:40 Absolute Nucleated RBC 0.000 X10*3/uL (0.0-0.012) 02/26/20 05:43 Nucleated RBC % (auto) 0.0 /100WBC (0.0-0.2) 02/26/20 05:43 Smear Tech's Comments VERIFIED 02/25/20 06:40 PT 14.2 SEC (10.8-13.0) H 02/23/20 22:33 INR 1.2 (0.9-1.1) H 02/23/20 22:33 APTT 36.4 SEC (24.1-38.0) 02/23/20 22:33 Sodium 136 mmol/L (135-145) 02/26/20 05:43 Potassium 4.6 mmol/l (3.3-5.1) 02/26/20 05:43 Chloride 103 mmol/L (96-108) 02/26/20 05:43 Carbon Dioxide 22 mmol/L (22-29) 02/26/20 05:43 Anion Gap 16 (12-20) 02/26/20 05:43 BUN 52 mg/dL (9-16) H 02/26/20 05:43 Creatinine 1.86 mg/dL (0.5-1.4) H 02/26/20 05:43 Estim Creat Clear Calc 52.7 02/26/20 05:43 Estimated GFR 38 02/26/20 05:43 POC Glucose 175 mg/dL (60-115) H 02/26/20 08:11 Random Glucose 174 mg/dL (60-115) H D 02/26/20 05:43 Lactic Acid 1.5 mmol/L (0.5-2.0) 02/23/20 20:49 Calcium 8.1 mg/dL (8.4-10.2) L 02/26/20 05:43 Magnesium 1.8 mg/dL (1.6-2.6) 02/23/20 20:49 Total Bilirubin 0.5 mg/dL (0.0-1.0) 02/26/20 05:43 Direct Bilirubin 0.2 mg/dL (0.0-0.5) 02/26/20 05:43 AST 35 U/L (5-37) 02/26/20 05:43 ALT 29 U/L (0-40) 02/26/20 05:43 Alkaline Phosphatase 98 U/L (39-117) 02/26/20 05:43 Troponin I High Sens 14.0 ng/L (<3.5-35.0) 02/23/20 20:49 B-Natriuretic Peptide < 10 pg/mL (<100) 02/23/20 20:49 Total Protein 6.0 g/dL (6.5-8.0) L 02/26/20 05:43 Albumin 3.1 g/dL (3.5-5.0) L 02/26/20 05:43 Lipase 106 U/L (8-78) H 02/23/20 22:33 Urine Color YELLOW 02/23/20 21:08 Urine Appearance HAZY 02/23/20 21:08 Urine pH 5.5 (5.0-8.0) 02/23/20 21:08 Ur Specific Traver >= 1.030 (1.005-1.025) H 02/23/20 21:08 Urine Protein 2+ MG/DL (NEG-TRACE) H 02/23/20 21:08 Urine Glucose (UA) NEG MG/DL (NEG) 02/23/20 21:08 Urine Ketones NEG MG/DL (NEG) 02/23/20 21:08 Urine Blood 2+ (NEG) H 02/23/20 21:08 Urine Nitrite NEG (NEG) 02/23/20 21:08 Ur Leukocyte Esterase NEG (NEG) 02/23/20 21:08 Urine RBC 1-4 /HPF (0) 02/23/20 21:08 Urine WBC 1-4 /HPF (0-4) 02/23/20 21:08 Ur Squamous Epith Cells 1+ /LPF 02/23/20 21:08 Urine Bacteria 2+ /LPF 02/23/20 21:08 Urine Mucus 1+ /LPF 02/23/20 21:08 Urine Opiates Screen Not Detected (Not Detect) 02/23/20 21:08 Ur Barbiturates Screen Not Detected (Not Detect) 02/23/20 21:08 Ur Phencyclidine Scrn Not Detected (Not Detect) 02/23/20 21:08 Ur Amphetamines Screen Not Detected (Not Detect) 02/23/20 21:08 U Benzodiazepines Scrn POSITIVE (Not Detect) H 02/23/20 21:08 Urine Cocaine Screen Not Detected (Not Detect) 02/23/20 21:08 U Marijuana (THC) Screen Not Detected (Not Detect) 02/23/20 21:08 Ethyl Alcohol < 10 mg/dL 02/23/20 20:49 Coronavirus (PCR) POSITIVE (Negative) A 02/23/20 23:33 Influenza Type A (PCR) NEGATIVE (Negative) 02/23/20 23:33 Influenza Type B (PCR) NEGATIVE (Negative) 02/23/20 23:33 RSV RNA Qual (PCR) NEGATIVE (Negative) 02/23/20 23:33 Preliminary micro results at discharge 02/23/20 20:49 Blood Culture - Preliminary Blood - Venous No growth after 48 hours. 02/23/20 20:49 Blood Culture - Preliminary Blood - Venous No growth after 48 hours. Discharge Plan Discharge Patient Disposition: Home, Self-Care Referrals: Physician,Unknown [Primary Care Provider] - Discharge Medications: New dexamethasone 6 mg tablet 6 mg PO DAILY Qty: 7 RF: 0 Continued hydrochlorothiazide 25 mg tablet 25 mg PO DAILY 90 Days Qty: 90 RF: 1 metoclopramide HCl 5 mg tablet 5 mg PO QID 30 Days Qty: 120 RF: 1 cholecalciferol (vitamin D3) [D3-2000] 50 mcg (2,000 unit) capsule 1 cap PO DAILY RF: 0 Tradjenta 5 mg tablet 1 tab PO DAILY RF: 0 Toujeo SoloStar U-300 Insulin 300 unit/mL (1.5 mL) insulin pen 80 unit subcut DAILY RF: 0 meclizine 25 mg tablet 25 mg PO Q6-8H PRN (Reason: Dizziness) RF: 0 famotidine 20 mg tablet 20 mg PO BID RF: 0 ondansetron HCl 4 mg tablet 4 mg PO Q6-8H PRN (Reason: Nausea) RF: 0 (DME) pen needle, diabetic 32 gauge x 5/32 needle See Rx Instructions ea .ROUTE .MEDSUPPLY Qty: 50 RF: 0 trazodone 150 mg tablet 150 mg PO BEDTIME RF: 0 atorvastatin 10 mg tablet 10 mg PO DAILY RF: 0 (DME) lancets 28 gauge misc See Rx Instructions ea topical QID Qty: 100 RF: 0 venlafaxine 150 mg capsule,extended release 24hr 300 mg PO QAM RF: 0 losartan 50 mg tablet 50 mg PO DAILY RF: 0 (DME) blood sugar diagnostic Strip See Rx Instructions ea Not Applicable .MEDSUPPLY Qty: 10 RF: 0 triamcinolone acetonide 0.1 % cream 0.1 applic topical BID RF: 0 insulin aspart U-100 [Novolog Flexpen U-100 Insulin] 100 unit/mL (3 mL) insulin pen 20 unit subcut TID 30 Days Qty: 30 RF: 6 Changed clonazepam 1 mg tablet 0.5 mg PO TID Qty: 90 RF: 4 Discharge Orders: Discharge Order (Routine); Ordered 02/26/20 Ordered By: Erica Peres Diet: advance to usual diet Activity on Discharge: As tolerated Visit Report Forms: Patient Portal Discharge page Care Plan Goals: read below Health Concerns: read below Plan of Treatment: you have presented to the hospital complaining of weakness and diarrhea. Your tested positive for COVID-19 infection. Admitted to the hospital and treated with IV steroids and oxygen supplement with good response as your nausea and diarrhea resolved. You were weaned off the oxygen and were able to ambulate on room air with no shortness of breath. To use dexamethasone for 7 more days Decrease clonazepam to 0.5 mg 3 times a day, consider decreasing it to twice a day in 1 week Keep yourself quarantine for at least 7 days after resolving of your symptoms Use Tylenol as needed for pain To follow-up with PCP as scheduled
[2020-02-26 11:29] VITALS: BP 143/79; PULSE 102; RESP 18; TEMP 36.2; O2SAT 91
[2020-02-26 11:45] LABS: Glucose, Whole Blood 182 mg/dL (60-115)
[2020-02-26] MEDS: Insulin Lispro 100 UNIT/ML 3 ML VIAL SUBCUT (11:53)
--- NOTE | 2020-02-26 12:07 | MHC.CM.PN ---
Patient is DC to home with [facility] Sister providing transportation.
--- NOTE | 2020-02-26 12:31 | MHC.CM.PN ---
Called [facility], spoke with Adenike. Notified of DC today and to resume services. Home services provided by [facility]. DE Info sent to [facility].
== END 2020-02-26 14:16 | disposition home or self-care (01) | DRG 871 ==
LOC: HO.ED 22:08 → HO.IMC 02-24 01:29
PROVIDERS: Nurse Practitioner Family; Admitting Provider Internal Medicine; Emergency Provider Emergency Medicine; Visit Provider Student in an Organized Health Care Education/Training Program
DX: A41.89 Other specified sepsis (principal); U07.1 COVID-19; J12.89 Other viral pneumonia; G93.41 Metabolic encephalopathy; I12.9 Hypertensive chronic kidney disease with stage 1 through stage 4 chronic kidney disease, or unspecified chronic kidney disease; N18.30 Chronic kidney disease, stage 3 unspecified; E11.42 Type 2 diabetes mellitus with diabetic polyneuropathy; E78.5 Hyperlipidemia, unspecified; F41.9 Anxiety disorder, unspecified; K21.9 Gastro-esophageal reflux disease without esophagitis; E11.22 Type 2 diabetes mellitus with diabetic chronic kidney disease; E66.9 Obesity, unspecified; Z68.32 Body mass index [BMI] 32.0-32.9, adult; E11.65 Type 2 diabetes mellitus with hyperglycemia; Z79.4 Long term (current) use of insulin; Z79.899 Other long term (current) drug therapy
CPT/HCPCS: 0241U; 36415; 70450; 71250; 80048; 80076; 80307; 80320; 81001; 82947; 83605; 83690; 83735; 83880; 84484; 85025; 85027; 85610; 85730; 87040; 93005; 96361; 96374; 99285; 99291; J1100; J1650; J1885

== ENCOUNTER 2020-03-10 09:05 | Outpatient (REF) | payer OTHER, SELFPAY | END 2020-03-10 09:06 | disposition home or self-care (01) | LOC: HO.LAB 09:05 | PROVIDERS: PCP Internal Medicine; Visit Provider Internal Medicine | DX: Z20.828 Contact with and (suspected) exposure to other viral communicable diseases (principal) | CPT/HCPCS: C9803; U0003 ==

== ENCOUNTER → 2020-03-22 10:44 | Outpatient (BNVA) | payer OTHER, SELFPAY | PROVIDERS: PCP Internal Medicine; Visit Provider Nurse Practitioner Gerontology | DX: E11.65 Type 2 diabetes mellitus with hyperglycemia (principal); E11.21 Type 2 diabetes mellitus with diabetic nephropathy; E11.40 Type 2 diabetes mellitus with diabetic neuropathy, unspecified; E11.42 Type 2 diabetes mellitus with diabetic polyneuropathy; I10 Essential (primary) hypertension; Z79.4 Long term (current) use of insulin | CPT/HCPCS: 82947; 99212 ==

== ENCOUNTER → 2020-04-06 10:14 | Outpatient (BNVA) | payer OTHER, SELFPAY | PROVIDERS: PCP Internal Medicine; Referring Provider Internal Medicine; Visit Provider Nurse Practitioner Gerontology | DX: Z13.89 Encounter for screening for other disorder (principal) | CPT/HCPCS: Q3014 ==

== ENCOUNTER 2020-05-04 15:37 | Inpatient (IN) | payer OTHER, SELFPAY ==
[2020-05-04] VITALS (13 sets, daily range): BP systolic 155–227; BP diastolic 80–116; PULSE 93–114; RESP 16–22; TEMP 36.9–37.1; O2SAT 95–99; BMI 30.2
[2020-05-04 15:48] LABS: Glucose, Whole Blood 289 mg/dL (60-115)
--- NOTE | 2020-05-04 15:50 | ECG_ITS ---
Test Reason : SYNCOPE Blood Pressure : / mmHG Vent. Rate : 108 BPM Atrial Rate : 108 BPM P-R Int : 142 ms QRS Dur : 076 ms QT Int : 346 ms P-R-T Axes : 042 001 031 degrees QTc Int : 463 ms Sinus tachycardia Moderate voltage criteria for LVH, may be normal variant Borderline ECG When compared with ECG of 23-FEB-2020 20:49, Nonspecific T wave abnormality, improved in Inferior leads Referred By: Marvin Sanchez Electronically Signed By:KATHERINE SMITH
--- NOTE | 2020-05-04 15:50 | XR_ITS ---
EXAMINATION: XR CHEST CLINICAL INFORMATION: SOB. COMPARISON: Chest 12/08/2018 TECHNIQUE: Frontal view of the chest was obtained. FINDINGS: The lungs are well-expanded with bilateral increased interstitial markings. No consolidation seen. Heart size and pulmonary vascularity is normal. No gross bony abnormality seen. XR/XR chest 1V IMPRESSION: Bilateral increased interstitial markings likely pneumonitis. No reactive airway disease seen.
--- NOTE | 2020-05-04 15:50 | CT_ITS ---
EXAMINATION: CT HEAD WITHOUT CONTRAST CLINICAL INFORMATION: Dizziness. COMPARISON: Head CT dated 02/23/2020. TECHNIQUE: Contiguous axial imaging was performed from the skull base to vertex without intravenous administration of contrast. This CT examination was performed using dose optimization techniques as appropriate, variously including the following: *Automated exposure control *Adjustment of mA and/or kV according to patient size (this includes techniques or standardized protocols for targeted exams where dose is matched to indication/reason for exam; i.e. extremities or head) *Use of iterative reconstruction technique DLP: 880 mGy-cm FINDINGS: There is no evidence of acute intracranial hemorrhage or territorial infarction. No abnormal mass effect or midline shift is seen. Fl[place] to white matter differentiation is well preserved. No extra-axial fluid collections are identified. Moderate to severe volume loss evident for patient age with ex vacuo dilatation of the ventricles. Moderate chronic white matter microangiopathy again noted. The osseous structures and soft tissues are normal. The mastoid air cells and visualized portions of the paranasal sinuses are well aerated. CT/CT head/brain wo con IMPRESSION: No acute intracranial hemorrhage or territorial infarction. Moderate to severe diffuse parenchymal volume loss and moderate chronic white matter microangiopathy.
[2020-05-04] MEDS: 0.9 % Sodium Chloride 1,000 ML 999 ML IV (16:07)
[2020-05-04 16:23] LABS: MANUAL DIFF FLAG NO
[2020-05-04 16:25] LABS: Basophils Absolute Auto 0.1 X10*3/uL (0.0-0.2); Basophils Percent Auto 0.7 % (0-2); Eosinophils Absolute Auto 0.1 X10*3/uL (0.0-0.4); Hematocrit 35.6 % (42-52); Hemoglobin 12.7 g/dl (14.0-18.0); Imm Gran Abs Auto 0.04 X10*3/uL (0.00-0.03); Imm Gran Pct Auto 0.4 % (0.0-0.4); Lymphocytes Absolute Auto 1.6 X10*3/uL (1.2-4.9); Lymphocytes Percent Auto 17.9 % (20-40); Mean Corpuscular HGB Conc 35.7 g/dl (31.0-36.0); Mean Corpuscular Hemoglobin 31.5 pg (27.0-33.0); Mean Corpuscular Volume 88.3 fL (80-98); Monocytes Absolute Auto 0.8 X10*3/uL (0.1-1.2); Monocytes Percent Auto 9.1 % (2-11); Neutrophils Absolute Auto 6.5 X10*3/uL (2.0-8.3); Neutrophils Percent Auto 70.9 % (45-73); Platelet Count 211 X10*3/uL (160-400); Red Blood Count 4.03 X10*6/uL (4.60-5.80); Red Cell Distribution Width 12.7 % (11.0-16.0); White Blood Count 9.1 X10*3/uL (4.8-10.8)
[2020-05-04 16:31] LABS: Prothrombin Time 11.7 SEC (10.8-13.0)
[2020-05-04 16:34] LABS: Partial Thromboplastin Time 36.2 SEC (24.1-38.0)
[2020-05-04 17:11] LABS: B Type Natriuretic Peptide 17 pg/mL (<100); Troponin-I High Sensitivity 10.3 ng/L (<3.5-35.0)
[2020-05-04 17:14] LABS: D Dimer < 200 NG/ML
--- NOTE | 2020-05-04 17:16 | ED.GENADULT ---
HPI - General Adult General Chief complaint: Dyspnea Stated complaint: DIZZINESS S/P EXERCISE Time Seen by Provider: 05/04/20 15:49 Source: patient Mode of arrival: ambulatory Limitations: no limitations History of Present Illness HPI narrative: Patient presents to ED for dizziness and shortness of breath while play fighting with his nephew earlier in the day. Patient denied having headache at that time or any chest pain. Patient describes dizziness as just feeling light headed. Patient states he did not pass out. Patient denied any blunt obvious trauma to the head or rest of body. Patient states he did eat breakfast this morning. Patient denies any slurred speech, loss of vision, or paralysis of extremities. Patient states this morning blood pressure systolic was in the 160s Related Data Home Medications Medication Instructions Recorded Confirmed atorvastatin 10 mg tablet 10 mg PO DAILY 02/02/20 04/29/20 blood sugar diagnostic #10 ea 02/02/20 04/29/20 lancets 28 gauge #100 ea 02/02/20 04/29/20 meclizine 25 mg tablet 25 mg PO Q6-8H PRN 02/02/20 04/29/20 ondansetron HCl 4 mg tablet 4 mg PO Q6-8H PRN 02/02/20 04/29/20 pen needle, diabetic 32 gauge x #50 ea 02/02/20 04/29/20 triamcinolone acetonide 0.1 % 0.1 applic TOPICAL BID 02/02/20 04/29/20 topical cream Toujeo SoloStar U-300 Insulin 80 unit SUBCUT DAILY 02/24/20 04/29/20 Tradjenta 1 tab PO DAILY 02/24/20 04/29/20 insulin aspart U-100 100 unit/mL 15 - 20 unit SUBCUT TID ml 04/06/20 04/29/20 (3 mL) subcutaneous pen Previous Rx's Medication Instructions Recorded hydrochlorothiazide 25 mg tablet 25 mg PO DAILY 90 Days #90 tab 01/04/20 metoclopramide HCl 5 mg tablet 5 mg PO QID 30 Days #120 tab 02/17/20 clonazepam 0.5 mg PO TID #90 tab 02/26/20 dexamethasone 6 mg PO DAILY #7 tab 02/26/20 alcohol swabs 1 pad TOPICAL .8 times a day 30 03/04/20 Days #200 ea cholecalciferol (vitamin D3) 50 50 mcg PO DAILY #30 cap 03/04/20 mcg (2,000 unit) capsule prucalopride 2 mg tablet 2 mg PO DAILY #30 tab 03/17/20 losartan 50 mg tablet 50 mg PO DAILY #90 tab 03/22/20 famotidine 20 mg tablet 20 mg PO BID #180 tab 03/23/20 trazodone 150 mg tablet 150 mg PO BEDTIME #90 tab 03/23/20 venlafaxine 150 mg 300 mg PO QAM #90 cap 03/23/20 capsule,extended release 24 hr miscellaneous medical supply 1 ea MISCELLANEOUS DAILY #1 ea 03/24/20 tizanidine 4 mg capsule 4 mg PO Q8H PRN #60 cap 04/29/20 Allergies Allergy/AdvReac Type Severity Reaction Status Date / Time cephalexin [From KEFLEX] Allergy Mild ITCHY Verified 04/06/20 10:41 THROAT lisinopril [LISINOPRIL] Allergy Unknown SWELLING Verified 04/06/20 10:41 COUGH Review of Systems Review of Systems: Yes all other systems are reviewed and are negative Constitutional: Constitutional: Reports as per HPI and Reports no additional constitutional complaints Eyes: Eyes: Reports as per HPI and Reports no additional eye complaints ENT: Reports system reviewed and no additional complaints, except as documented and Reports as per HPI Cardiovascular: Cardiovascular: Reports as per HPI, Reports no additional cardiovascular complaints, Denies chest pain, Denies chest pain at rest, Denies chest pain with activity and Reports dyspnea Respiratory: Respiratory: Reports as per HPI, Reports no additional respiratory complaints and Reports dyspnea Gastrointestinal: Gastrointestinal: Reports as per HPI and Reports no additional gastrointestinal complaints Genitourinary: Genitourinary: Reports no additional male genitourinary complaints and Reports as per HPI Musculoskeletal: Musculoskeletal: Reports no additional musculoskeletal complaints and Reports as per HPI Neurologic: Reports system reviewed and no additional complaints, except as documented and Reports as per HPI Psychiatric: Psychiatric: Reports no additional psychiatric complaints and Reports as per HPI [facility] Past Medical History Medical History Anxiety CKD (chronic kidney disease) stage 3, GFR 30-59 ml/min Depression Diabetes Diabetes type 2, uncontrolled Diabetic nephropathy associated with type 2 diabetes mellitus Diabetic neuropathy associated with type 2 diabetes mellitus Dyslipidemia GERD (gastroesophageal reflux disease) High cholesterol Hypercalcemia 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 Social History Social History Household Members: Family Housing: House Alcohol intake: current Alcohol intake frequency: does not drink Smoking Status: Never smoker Advance Directives: No Advance Directives Information Provided: Yes service: No Current occupational status: disabled Physical Exam Vital Signs: Vital Signs: Last Vital Signs Temp 98.7 F 05/04/20 16:00 Pulse 112 H 05/04/20 20:18 Resp 18 05/04/20 18:38 BP 171/98 H 05/04/20 20:18 Pulse Ox 97 05/04/20 18:38 Body Mass Index 30.2 Const: General: cooperative, healthy appearing, comfortable, no acute distress, well developed, alert, awake and Physically active Orientation/consciousness: patient oriented x3 HENMT: Head: Yes normal to inspection, Yes No palpable skull fracture present, Yes normocephalic, Yes atraumatic, No abrasion, No Acrocyanosis present, No Goldberg's sign, No contusion, No cranial bruits, No hematoma, No laceration, No occipital foramen tenderness, No palpable skull fracture, No raccoon eyes, No scalp lesion, No scalp tenderness, No Temporal artery tenderness present and No periorbital ecchymosis Eyes: Other: Negative for nystagmus General: appearance normal, both eyes and all related structures Neck: Neck: Yes normal visual inspection, Yes full ROM, Yes no lymphadenopathy, Yes no meningeal signs, Yes trachea midline, Yes supple and No tender Chest: Chest palpation & inspection: normal inspection of the chest and normal palpation of entire chest wall Resp: Effort & Inspection: normal respiratory effort and able to speak in complete sentences Auscultation: clear to auscultation bilaterally Cardio: Jugular venous distension: no JVD Heart sounds: S1 normal heart sound present and S2 normal heart sound present GI: Inspection: Yes normal to inspection and No abdominal wall ecchymosis Palpation (GI): Soft to palpation, not firm, nontender, no guarding and not rigid : General: No CVA tenderness and Yes no CVA tenderness Back/Spine/Pelvis: Back: no CVA tenderness, No CVA tenderness and No back tenderness Skin: General skin exam: no rashes or lesions noted and elasticity normal Neuro: Other: Negative for any slurred speech. Negative for facial droop. Negative pronator drift. All extremities have equal strength and 5+. [id number] and rapid hand movement is intact. Negative Romberg General: patient oriented x3, gait normal, no meningeal signs and CN's II-XI intact bilaterally Cranial nerves: Yes CN's II-XII intact bilaterally Extrem: Other: Negative for swelling, pitting edmea, or calf tenderness. General: Yes normal to inspection and Yes full ROM Psych: Appearance: grossly normal, well kempt and not disheveled Course Course Course Narrative: Patient will have a medical evaluation which will include cardiac and a D-dimer was sent to make sure there is no risk of PE. Patient presently vital signs are stable. Will order orthostatics. Reevaluation(s) Reevaluation #1: Patient became hypertensive into the systolic of 227. Patient given clonidine. Head CT scan negative for bleed or stroke. Negative for any neuro deficits. Patient 1st troponin 10. D-dimer is negative. Wells score Score 1.5 Time: 19:33 Reevaluation #2: Patient's repeat orthostatics were negative. Patient's blood pressure improved with clonidine. Patient neuro exam is still intact. Patient's 2nd troponin came back negative Time: 20:22 Reevaluation #3: Systolic now monitor is 190s. Dilantin ordered. Spoke with hospitalist for admission for hypertensive urgency. Case except Time: 20:55 Medical Decision Making MDM Narrative Medical decision making narrative: Hypertensive urgency Lab Data Result diagrams: 05/04/20 16:06 05/04/20 16:06 Labs: Lab Results 05/04/20 05/04/20 05/04/20 Range/Units 15:45 16:06 16:06 WBC 9.1 (4.8-10.8) X10*3/uL RBC 4.03 L (4.60-5.80) X10*6/uL Hgb 12.7 L (14.0-18.0) g/dl Hct 35.6 L (42-52) % MCV 88.3 (80-98) fL MCH 31.5 (27.0-33.0) pg MCHC 35.7 (31.0-36.0) g/dl RDW 12.7 (11.0-16.0) % Plt Count 211 (160-400) X10*3/uL MPV 11.0 (9.4-12.4) fL Immature Gran % (Auto) 0.4 (0.0-0.4) % Neut % (Auto) 70.9 (45-73) % Lymph % (Auto) 17.9 L (20-40) % [place] % (Auto) 9.1 (2-11) % Eos % (Auto) 1.0 (0-4) % Baso % (Auto) 0.7 (0-2) % Lymph # (Auto) 1.6 (1.2-4.9) X10*3/uL [place] # (Auto) 0.8 (0.1-1.2) X10*3/uL Eos # (Auto) 0.1 (0.0-0.4) X10*3/uL Baso # (Auto) 0.1 (0.0-0.2) X10*3/uL Abs Immat Gran (auto) 0.04 H (0.00-0.03) X10*3/uL Absolute Neuts (auto) 6.5 (2.0-8.3) X10*3/uL Absolute Nucleated RBC 0.000 (0.0-0.012) X10*3/uL Nucleated RBC % (auto) 0.0 (0.0-0.2) /100WBC PT 11.7 (10.8-13.0) SEC INR 1.0 (0.9-1.1) APTT 36.2 (24.1-38.0) SEC D-Dimer < 200 NG/ML Sodium (135-145) mmol/L Potassium (3.3-5.1) mmol/L Chloride (96-108) mmol/L Carbon Dioxide (22-29) mmol/L Anion Gap (12-20) BUN (9-16) mg/dL Creatinine (0.5-1.4) mg/dL Estim Creat Clear Calc Estimated GFR POC Glucose 289 H (60-115) mg/dL Random Glucose (60-115) mg/dL Calcium (8.4-10.2) mg/dL Total Bilirubin (0.0-1.0) mg/dL AST (5-37) U/L ALT (0-40) U/L Alkaline Phosphatase (39-117) U/L Troponin I High Sens (<3.5-35.0) ng/L B-Natriuretic Peptide (<100) pg/mL Total Protein (6.5-8.0) g/dL Albumin (3.5-5.0) g/dL 05/04/20 05/04/20 05/04/20 Range/Units 16:06 16:06 16:06 WBC (4.8-10.8) X10*3/uL RBC (4.60-5.80) X10*6/uL Hgb (14.0-18.0) g/dl Hct (42-52) % MCV (80-98) fL MCH (27.0-33.0) pg MCHC (31.0-36.0) g/dl RDW (11.0-16.0) % Plt Count (160-400) X10*3/uL MPV (9.4-12.4) fL Immature Gran % (Auto) (0.0-0.4) % Neut % (Auto) (45-73) % Lymph % (Auto) (20-40) % [place] % (Auto) (2-11) % Eos % (Auto) (0-4) % Baso % (Auto) (0-2) % Lymph # (Auto) (1.2-4.9) X10*3/uL [place] # (Auto) (0.1-1.2) X10*3/uL Eos # (Auto) (0.0-0.4) X10*3/uL Baso # (Auto) (0.0-0.2) X10*3/uL Abs Immat Gran (auto) (0.00-0.03) X10*3/uL Absolute Neuts (auto) (2.0-8.3) X10*3/uL Absolute Nucleated RBC (0.0-0.012) X10*3/uL Nucleated RBC % (auto) (0.0-0.2) /100WBC PT (10.8-13.0) SEC INR (0.9-1.1) APTT (24.1-38.0) SEC D-Dimer NG/ML Sodium 134 L (135-145) mmol/L Potassium 4.6 (3.3-5.1) mmol/L Chloride 97 (96-108) mmol/L Carbon Dioxide 24 (22-29) mmol/L Anion Gap 18 (12-20) BUN 32 H (9-16) mg/dL Creatinine 2.03 H (0.5-1.4) mg/dL Estim Creat Clear Calc 51.1 Estimated GFR 34 POC Glucose (60-115) mg/dL Random Glucose 303 H D (60-115) mg/dL Calcium 8.8 D (8.4-10.2) mg/dL Total Bilirubin 0.2 (0.0-1.0) mg/dL AST 33 (5-37) U/L ALT 22 (0-40) U/L Alkaline Phosphatase 97 (39-117) U/L Troponin I High Sens 10.3 (<3.5-35.0) ng/L B-Natriuretic Peptide 17 Cancelled (<100) pg/mL Total Protein 6.9 (6.5-8.0) g/dL Albumin 3.9 D (3.5-5.0) g/dL 05/04/20 Range/Units 19:21 WBC (4.8-10.8) X10*3/uL RBC (4.60-5.80) X10*6/uL Hgb (14.0-18.0) g/dl Hct (42-52) % MCV (80-98) fL MCH (27.0-33.0) pg MCHC (31.0-36.0) g/dl RDW (11.0-16.0) % Plt Count (160-400) X10*3/uL MPV (9.4-12.4) fL Immature Gran % (Auto) (0.0-0.4) % Neut % (Auto) (45-73) % Lymph % (Auto) (20-40) % [place] % (Auto) (2-11) % Eos % (Auto) (0-4) % Baso % (Auto) (0-2) % Lymph # (Auto) (1.2-4.9) X10*3/uL [place] # (Auto) (0.1-1.2) X10*3/uL Eos # (Auto) (0.0-0.4) X10*3/uL Baso # (Auto) (0.0-0.2) X10*3/uL Abs Immat Gran (auto) (0.00-0.03) X10*3/uL Absolute Neuts (auto) (2.0-8.3) X10*3/uL Absolute Nucleated RBC (0.0-0.012) X10*3/uL Nucleated RBC % (auto) (0.0-0.2) /100WBC PT (10.8-13.0) SEC INR (0.9-1.1) APTT (24.1-38.0) SEC D-Dimer NG/ML Sodium (135-145) mmol/L Potassium (3.3-5.1) mmol/L Chloride (96-108) mmol/L Carbon Dioxide (22-29) mmol/L Anion Gap (12-20) BUN (9-16) mg/dL Creatinine (0.5-1.4) mg/dL Estim Creat Clear Calc Estimated GFR POC Glucose (60-115) mg/dL Random Glucose (60-115) mg/dL Calcium (8.4-10.2) mg/dL Total Bilirubin (0.0-1.0) mg/dL AST (5-37) U/L ALT (0-40) U/L Alkaline Phosphatase (39-117) U/L Troponin I High Sens 9.9 (<3.5-35.0) ng/L B-Natriuretic Peptide (<100) pg/mL Total Protein (6.5-8.0) g/dL Albumin (3.5-5.0) g/dL ECG Data Interpretation: Sinus tachycardic. ND interval 142. QRS 76. QTC 463. Negative STEMI Discharge Plan Discharge Clinical Impression: Asymptomatic hypertensive urgency Patient Disposition: Admitted As Inpatient
[2020-05-04 17:30] LABS: Alanine Aminotransferase 22 U/L (0-40); Albumin Level 3.9 g/dL (3.5-5.0); Alkaline Phosphatase 97 U/L (39-117); Anion Gap 18 (12-20); Aspartate Amino Transferase 33 U/L (5-37); Bilirubin Total 0.2 mg/dL (0.0-1.0); Blood Urea Nitrogen 32 mg/dL (9-16); Calcium 8.8 mg/dL (8.4-10.2); Carbon Dioxide 24 mmol/L (22-29); Chloride 97 mmol/L (96-108); Creatinine Clr Calc Pharmacy 51.1; Estimated Glomerular Filt Rate 34; Glucose Random 303 mg/dL (60-115); Potassium 4.6 mmol/L (3.3-5.1); Sodium 134 mmol/L (135-145); Total Protein 6.9 g/dL (6.5-8.0)
[2020-05-04] MEDS: cloNIDine HCL 0.1 MG TABLET PO (19:00)
[2020-05-04 20:03] LABS: Troponin-I High Sensitivity 9.9 ng/L (<3.5-35.0)
--- NOTE | 2020-05-04 20:30 | PC.NURSE ---
bp remains high, PA Marvin aware. pt c/o headache developing no other sxs.
[2020-05-04] MEDS: Labetalol HCL 100 MG/20 ML VIAL 10 MG IVPUSH (20:47)
--- NOTE | 2020-05-04 20:52 | P.HPHOSP_ITS ---
History of Present Illness Date of Service: 05/04/20 Chief Complaint: Dizziness 54-year-old male with a past medical history of hypertension, hyperlipidemia, diabetes-insulin dependent, CKD, diabetic neuropathy, recent admission to the hospital in January 2020 for COVID-19 pneumonia/encephalopathy semi: Presented to the hospital with a chief complaint of dizziness or shortness of breath. Patient reported that he was with his family any fluid dizzy/lightheaded. Denied any associated chest pain or palpitations. Noticed shortness of breath. Also had headaches at the same time. Denies any blurry visions. Denies any numbness tingling. Denies any focal weakness. Denies any GI or symptoms. Review of all other systems is negative except mentioned above ER course: For ER team patient's EKG was nonischemic CT head showed no acute findings exam was nonfocal. D-dimer was negative. Troponins negative. Patient blood pressure was 168/94 initially subsequently went up to 222/116-patient was given clonidine with improvement in blood pressure of 171/98-admitted to the hospital for further monitoring. 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 Surgical History History of esophagogastroduodenoscopy (EGD) Hx of arthroscopy of knee Hx of arthroscopy of right knee Social History Household Members: Family Housing: House Alcohol intake: current Alcohol intake frequency: does not drink Smoking Status: Never smoker Advance Directives: No Advance Directives Information Provided: Yes service: No Current occupational status: disabled Meds Allergies Allergy/AdvReac Type Severity Reaction Status Date / Time cephalexin [From KEFLEX] Allergy Mild ITCHY Verified 04/06/20 10:41 THROAT lisinopril [LISINOPRIL] Allergy Unknown SWELLING Verified 04/06/20 10:41 COUGH Home Medications Medication Instructions Recorded Confirmed Type atorvastatin 10 mg tablet 10 mg PO DAILY 02/02/20 04/29/20 History blood sugar diagnostic #10 ea 02/02/20 04/29/20 History lancets 28 gauge #100 ea 02/02/20 04/29/20 History meclizine 25 mg tablet 25 mg PO Q6-8H PRN 02/02/20 04/29/20 History ondansetron HCl 4 mg tablet 4 mg PO Q6-8H PRN 02/02/20 04/29/20 History pen needle, diabetic 32 gauge x #50 ea 02/02/20 04/29/20 History triamcinolone acetonide 0.1 % 0.1 applic TOPICAL BID 02/02/20 04/29/20 History topical cream Toujeo SoloStar U-300 Insulin 80 unit SUBCUT DAILY 02/24/20 04/29/20 History Tradjenta 1 tab PO DAILY 02/24/20 04/29/20 History insulin aspart U-100 100 unit/mL 15 - 20 unit SUBCUT TID ml 04/06/20 04/29/20 History (3 mL) subcutaneous pen Physical Exam Vital Signs and Narrative: Vital Signs: Last Vital Signs Temp 98.7 F 05/04/20 16:00 Pulse 104 H 05/04/20 20:47 Resp 18 05/04/20 18:38 BP 185/104 H 05/04/20 20:47 Pulse Ox 97 05/04/20 18:38 Body Mass Index 30.2 Gen: Appears be in no acute distress HEENT: NCAT, Moist mucosa. Pulmonary: Vesicular breath sounds, fair air entry CVS: Normal S1-S2 Abdomen: BS+, Soft, Nontender Extremities: Warm well perfused Neuro: Alert and awake. Grossly nonfocal Results Labs CBC and Chem 7: 05/04/20 16:06 05/04/20 16:06 Labs: Laboratory Results - last 24 hr 05/04/20 05/04/20 05/04/20 15:45 16:06 16:06 MCV 88.3 MCH 31.5 MCHC 35.7 RDW 12.7 Plt Count 211 MPV 11.0 Immature Gran % (Auto) 0.4 Neut % (Auto) 70.9 Lymph % (Auto) 17.9 L [place] % (Auto) 9.1 Eos % (Auto) 1.0 Baso % (Auto) 0.7 Lymph # (Auto) 1.6 [place] # (Auto) 0.8 Eos # (Auto) 0.1 Baso # (Auto) 0.1 Abs Immat Gran (auto) 0.04 H Absolute Neuts (auto) 6.5 Absolute Nucleated RBC 0.000 Nucleated RBC % (auto) 0.0 PT 11.7 INR 1.0 APTT 36.2 D-Dimer < 200 Anion Gap Estim Creat Clear Calc Estimated GFR POC Glucose 289 H Random Glucose Calcium Total Bilirubin AST ALT Alkaline Phosphatase Troponin I High Sens B-Natriuretic Peptide Total Protein Albumin 05/04/20 05/04/20 05/04/20 16:06 16:06 16:06 MCV MCH MCHC RDW Plt Count MPV Immature Gran % (Auto) Neut % (Auto) Lymph % (Auto) [place] % (Auto) Eos % (Auto) Baso % (Auto) Lymph # (Auto) [place] # (Auto) Eos # (Auto) Baso # (Auto) Abs Immat Gran (auto) Absolute Neuts (auto) Absolute Nucleated RBC Nucleated RBC % (auto) PT INR APTT D-Dimer Anion Gap 18 Estim Creat Clear Calc 51.1 Estimated GFR 34 POC Glucose Random Glucose 303 H D Calcium 8.8 D Total Bilirubin 0.2 AST 33 ALT 22 Alkaline Phosphatase 97 Troponin I High Sens 10.3 B-Natriuretic Peptide 17 Cancelled Total Protein 6.9 Albumin 3.9 D 05/04/20 19:21 MCV MCH MCHC RDW Plt Count MPV Immature Gran % (Auto) Neut % (Auto) Lymph % (Auto) [place] % (Auto) Eos % (Auto) Baso % (Auto) Lymph # (Auto) [place] # (Auto) Eos # (Auto) Baso # (Auto) Abs Immat Gran (auto) Absolute Neuts (auto) Absolute Nucleated RBC Nucleated RBC % (auto) PT INR APTT D-Dimer Anion Gap Estim Creat Clear Calc Estimated GFR POC Glucose Random Glucose Calcium Total Bilirubin AST ALT Alkaline Phosphatase Troponin I High Sens 9.9 B-Natriuretic Peptide Total Protein Albumin Imaging Radiologist's Impressions: Impressions Chest X-Ray 05/04/20 15:50 IMPRESSION: Bilateral increased interstitial markings likely pneumonitis. No reactive airway disease seen. Head CT 05/04/20 15:50 IMPRESSION: No acute intracranial hemorrhage or territorial infarction. Moderate to severe diffuse parenchymal volume loss and moderate chronic white matter microangiopathy. Assessment and Plan (1) Hypertensive urgency: Status: Acute 54-year-old male with a past medical history of hypertension, hyperlipidemia, diabetes, chronic kidney disease, history of COVID pneumonia presented to the hospital with a chief complaint of dizziness/shortness of breath-concern for near syncope admitted to the hospital for further management. Patient also noted to be in hypertensive urgency. Near syncope: Currently improving symptomatically. Troponins negative. EKG nonischemic. PT/OT. Headaches: Nonfocal examination. Improving. Denies any associated symptoms. CT head negative. Hypertensive urgency: Will continue home medications. Labetalol p.r.n. blood pressure greater than 180/90. Diabetes: Insulin sliding scale and For all other chronic conditions, home medication will be continued DVT prophylaxis: Subcu heparin Full code
[2020-05-04 21:32] LABS: COVID-19 Test Negative (Negative); IDNOW Serial# 9DD0AD1C
[2020-05-04 21:50] LABS: Glucose, Whole Blood 260 mg/dL (60-115)
[2020-05-05] VITALS (16 sets, daily range): BP systolic 157–193; BP diastolic 75–110; PULSE 83–99; RESP 16–18; TEMP 36.6–37.1; O2SAT 94–98
[2020-05-05] MEDS: Heparin Sodium,Porcine 5,000 UNIT/ML VIAL 5000 UNIT SUBCUT ×3 (01:19→21:05)
[2020-05-05] MEDS: 0.9 % Sodium Chloride Flush 3 ML SYRINGE IVFLUSH ×3 (01:20→18:11)
[2020-05-05] MEDS: Meclizine HCl 25 MG TABLET PO (01:58)
[2020-05-05] MEDS: oxyCODONE HCl Immed Release 5 MG TABLET PO (01:58)
[2020-05-05] MEDS: Labetalol HCL 100 MG/20 ML VIAL 10 MG IVPUSH ×3 (01:59→18:13)
--- NOTE | 2020-05-05 02:08 | PC.NURSE ---
PT C/O HEAD PAIN AND JOCY KNEE PAIN. PT MEDICATED PER EMAR. PT ON MONITOR WITH HR 91. B/P 195/95. PT UP TO RESTROOM AND RETURNED TO ROOM. PT DENIES ANY OTHER COMPLAINTS. WILL CONTINUE TO MONITOR PT. /
--- NOTE | 2020-05-05 04:58 | PC.NURSE ---
PT AWAKE AND SITTING UP AND WATCHING TV REQUESTING TO KNOW WHAT TIME IT IS. PT REQUESTING SOMETHING TO DRINK. PT DENIES ANY OTHER COMPLAINTS. VS OBTAINED. PT AWAITING FOR FURTHER ORDERS.
[2020-05-05 06:47] LABS: Basophils Absolute Auto 0.1 X10*3/uL (0.0-0.2); Basophils Percent Auto 1.4 % (0-2); Eosinophils Absolute Auto 0.2 X10*3/uL (0.0-0.4); Eosinophils Percent Auto 2.9 % (0-4); Hematocrit 36.7 % (42-52); Hemoglobin 12.3 g/dl (14.0-18.0); Imm Gran Abs Auto 0.04 X10*3/uL (0.00-0.03); Imm Gran Pct Auto 0.5 % (0.0-0.4); Lymphocytes Absolute Auto 2.1 X10*3/uL (1.2-4.9); Lymphocytes Percent Auto 26.6 % (20-40); MANUAL DIFF FLAG NO; Mean Corpuscular HGB Conc 33.5 g/dl (31.0-36.0); Mean Corpuscular Hemoglobin 29.9 pg (27.0-33.0); Mean Corpuscular Volume 89.1 fL (80-98); Mean Platelet Volume 10.9 fL (9.4-12.4); Monocytes Absolute Auto 0.8 X10*3/uL (0.1-1.2); Monocytes Percent Auto 9.5 % (2-11); Neutrophils Absolute Auto 4.7 X10*3/uL (2.0-8.3); Neutrophils Percent Auto 59.1 % (45-73); Platelet Count 210 X10*3/uL (160-400); Red Blood Count 4.12 X10*6/uL (4.60-5.80); Red Cell Distribution Width 12.6 % (11.0-16.0)
[2020-05-05 07:32] LABS: Anion Gap 14 (12-20); Blood Urea Nitrogen 27 mg/dL (9-16); Calcium 9.1 mg/dL (8.4-10.2); Carbon Dioxide 28 mmol/L (22-29); Chloride 98 mmol/L (96-108); Creatinine Clr Calc Pharmacy 59.6; Estimated Glomerular Filt Rate 41; Glucose Random 169 mg/dL (60-115); Potassium 4.1 mmol/L (3.3-5.1); Sodium 136 mmol/L (135-145)
[2020-05-05] MEDS: clonazePAM 0.5 MG TABLET PO ×3 (08:11→21:05)
[2020-05-05] MEDS: Losartan Potassium 50 MG TABLET PO (08:12)
[2020-05-05 08:21] LABS: Glucose, Whole Blood 260 mg/dL (60-115)
[2020-05-05] MEDS: Metoclopramide HCl 5 MG TABLET PO ×4 (10:47→21:05)
--- NOTE | 2020-05-05 11:48 | PC.NURSE ---
patient a&ox3, currently watching tv, cardiac cath lab manager nsr 80s, vitals stable-pt previously medicated for htn- still hypertensive, will continue to monitor.
[2020-05-05 11:59] LABS: Glucose, Whole Blood 258 mg/dL (60-115)
[2020-05-05] MEDS: Insulin Lispro 100 UNIT/ML 3 ML VIAL SUBCUT ×3 (13:25→21:05)
--- NOTE | 2020-05-05 13:29 | PC.NURSE ---
patient medicated per order
--- NOTE | 2020-05-05 17:16 | MHC.CM.PN ---
Cm met with pt. IMM reviewed and signed per protocol. Copy to pt and in chart. PCP Dr. Sarthak Miranda. No HCP. Will complete. D/C plan is home with continuation of grievance coordinator management and [employer] services provided by [facility]. Son, Mt Dias is INDUSTRIAL HYGIENE ENGINEER, 2 hours/daily. Transportation provided by family. CM to F/U with Adenike at [facility] regarding home services ([phone]) in am 05/06/2020. CM to follow for d/c needs.
--- NOTE | 2020-05-05 18:16 | PC.NURSE ---
patient a&ox3, quality assurance monitor nsr 90s, vitals obtained, pt hypertensive- pt medicated with labetalol prn per order, will recheck vitals shortly, pt medicated per order, insulin not given as dinner has not arrive yet, will continue to monitor.
[2020-05-05 18:19] LABS: Glucose, Whole Blood 254 mg/dL (60-115)
--- NOTE | 2020-05-05 19:18 | HO.PM.IMPN ---
Subjective Subjective Date of Service: 05/06/20 Interval History: dizziness Physical Exam Vital Signs: Vital Signs: Last Vital Signs Temp 98.8 F 05/05/20 18:12 Pulse 92 05/05/20 18:36 Resp 18 05/05/20 18:12 BP 177/98 H 05/05/20 18:36 Pulse Ox 94 05/05/20 18:12 Body Mass Index 30.2 Objective Data Current Medications Generic Name Dose Route Start Last Admin Trade Name Freq PRN Reason Stop Dose Admin Acetaminophen 650 mg 05/04/20 20:48 Acetaminophen Supp 650 Mg Supp.Rect AL Q6H PRN Pain, Mild (Pain Scale 1-3) Amlodipine Besylate 5 mg 05/06/20 09:00 Amlodipine Besylate 5 Mg Tablet PO DAILY [facility] Protocol Atorvastatin Calcium 10 mg 05/05/20 21:00 Atorvastatin Calcium 10 Mg Tablet PO BEDTIME [facility] Clonazepam 0.5 mg 05/05/20 09:00 05/05/20 14:37 Clonazepam 0.5 Mg Tablet PO 0.5 mg TID [facility] Administration Heparin Sodium (Porcine) 5,000 unit 05/04/20 22:00 05/05/20 12:05 Heparin Sodium,Porcine 5,000 Unit/Ml Vial SUBCUT 5,000 unit Q12H [facility] Administration Insulin Glargine 10 unit 05/06/20 09:00 Insulin Glargine,Hum.Rec.Anlog 100 Unit/Ml 10 Ml Vial SUBCUT DAILY [facility] Insulin Human Lispro 0 unit 05/05/20 07:30 05/05/20 18:35 Insulin Lispro 100 Unit/Ml 3 Ml Vial SUBCUT 6 unit QIDACHS [facility] Administration Protocol Labetalol HCl 10 mg 05/04/20 21:04 05/05/20 18:13 Labetalol Hcl 100 Mg/20 Ml Vial IVPUSH 10 mg Q4H PRN Administration BP>180/90 Losartan Potassium 50 mg 05/05/20 09:00 05/05/20 08:12 Losartan Potassium 50 Mg Tablet PO 50 mg DAILY [facility] Administration Protocol Meclizine HCl 25 mg 05/05/20 00:33 05/05/20 01:58 Meclizine Hcl 25 Mg Tablet PO 25 mg Q6H PRN Administration Dizziness Metoclopramide HCl 5 mg 05/05/20 09:00 05/05/20 18:11 Metoclopramide Hcl 5 Mg Tablet PO 5 mg QID [facility] Administration Oxycodone HCl 5 mg 05/04/20 20:48 05/05/20 01:58 Oxycodone Hcl Immed Release 5 Mg Tablet PO 5 mg Q6H PRN Administration Pain, Severe (Pain Scale 7-10) Sodium Chloride 3 ml 05/05/20 00:00 05/05/20 18:11 0.9 % Sodium Chloride Flush 3 Ml Syringe IVFLUSH 3 ml QSHIFT RADHA Administration Labs CBC & Chem 7: 05/05/20 06:13 05/05/20 06:13 Assessment and Plan (1) Hypertensive urgency: Status: Acute Assessment and Plan: 54-year-old male with a past medical history of hypertension, hyperlipidemia, diabetes, chronic kidney disease, history of COVID pneumonia presented to the hospital with a chief complaint of dizziness/shortness of breath-concern for near syncope admitted to the hospital for further management. Patient also noted to be in hypertensive urgency. Near syncope: Currently improving symptomatically. Troponins negative. EKG nonischemic. PT/OT. Headaches: Nonfocal examination. Improving. Denies any associated symptoms. CT head negative. Hypertensive urgency: continue losartan, added amlodipine, Labetalol p.r.n. blood pressure greater than 180/90. Diabetes: Insulin sliding scale with coverage fs running 150-250 range Continue sliding scale coverage ckd: cr 1.6-1.7, stable.
[2020-05-05 20:52] LABS: Glucose, Whole Blood 236 mg/dL (60-115)
[2020-05-05] MEDS: Atorvastatin Calcium 10 MG TABLET PO (21:05)
--- NOTE | 2020-05-05 21:07 | PC.NURSE ---
patient sleeping, woke to verbal stimulus, patient medicated per order, will continue to monitor
[2020-05-06] VITALS (12 sets, daily range): BP systolic 129–193; BP diastolic 65–113; PULSE 83–109; RESP 13–18; TEMP 36.2–37.1; O2SAT 93–97; BMI 30.2
[2020-05-06] MEDS: Labetalol HCL 100 MG/20 ML VIAL 10 MG IVPUSH (01:06)
[2020-05-06] MEDS: 0.9 % Sodium Chloride Flush 3 ML SYRINGE IVFLUSH ×3 (01:07→17:36)
[2020-05-06] MEDS: oxyCODONE HCl Immed Release 5 MG TABLET PO ×2 (01:43→14:23)
--- NOTE | 2020-05-06 03:59 | PC.NURSE ---
Addendum entered by Lois Black 05/06/20 04:00: oxycodone administration. Original Note: pt able to fall asleep following oxycontin administration.
--- NOTE | 2020-05-06 07:05 | PC.NURSE ---
pt sitting on the edge of the bed, poc checked 176. pt reports having a had headache 10/10 and having nausea.
[2020-05-06 07:07] LABS: Glucose, Whole Blood 176 mg/dL (60-115)
[2020-05-06] MEDS: Insulin Lispro 100 UNIT/ML 3 ML VIAL SUBCUT ×4 (07:28→20:48)
[2020-05-06] MEDS: Metoclopramide HCl 5 MG TABLET PO ×4 (07:29→20:46)
--- NOTE | 2020-05-06 07:49 | PC.NURSE ---
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
[2020-05-06] MEDS: amLODIPine Besylate 5 MG TABLET 10 MG PO (08:40)
[2020-05-06] MEDS: Heparin Sodium,Porcine 5,000 UNIT/ML VIAL 5000 UNIT SUBCUT ×2 (08:40→20:49)
[2020-05-06] MEDS: clonazePAM 0.5 MG TABLET PO ×3 (08:41→20:46)
[2020-05-06] MEDS: Losartan Potassium 50 MG TABLET PO (08:41)
[2020-05-06] MEDS: Insulin Glargine,Hum.rec.anlog 100 UNIT/ML 10 ML VIAL 10 UNIT SUBCUT (08:42)
[2020-05-06 11:23] LABS: Glucose, Whole Blood 271 mg/dL (60-115)
--- NOTE | 2020-05-06 14:29 | MHC.CM.PN ---
Pt remains in ICU with HTN: improved: d/c plan remains for pt to return to home with existing family and [facility] RN support. Family can transport
[2020-05-06] MEDS: hydroCHLOROthiazide 25 MG TABLET PO (14:51)
--- NOTE | 2020-05-06 15:04 | HO.PM.IMPN ---
Subjective Subjective Date of Service: 05/06/20 Interval History: Uncontrolled blood pressure, has headache Review of Systems Denies any chest pain on shortness of breath or abdominal pain or fever or chills. Physical Exam Vital Signs: Vital Signs: Last Vital Signs Temp 97.9 F 05/06/20 12:00 Pulse 109 H 05/06/20 12:58 Resp 16 05/06/20 12:00 BP 140/65 H 05/06/20 12:58 Pulse Ox 95 05/06/20 12:58 Body Mass Index 30.2 Physical exam: Constitutional: Not in acute distress Cvs: rrr, [id number] , no murmur res: clear to auscultation ,no rhonchii or wheezing abd: no rebound or guarding ,nt, bs present. ext pulses present , no cyanosis neuro: axo3 , nonfocal. Objective Data Current Medications Generic Name Dose Route Start Last Admin Trade Name Freq PRN Reason Stop Dose Admin Acetaminophen 650 mg 05/04/20 20:48 Acetaminophen Supp 650 Mg Supp.Rect [place] Q6H PRN Pain, Mild (Pain Scale 1-3) Acetaminophen 650 mg 05/06/20 14:38 Acetaminophen 325 Mg Tablet PO Q6H PRN Headache Amlodipine Besylate 10 mg 05/06/20 09:00 05/06/20 08:40 Amlodipine Besylate 5 Mg Tablet PO 10 mg DAILY [facility] Administration Protocol Atorvastatin Calcium 10 mg 05/05/20 21:00 05/05/20 21:05 Atorvastatin Calcium 10 Mg Tablet PO 10 mg BEDTIME [facility] Administration Clonazepam 0.5 mg 05/05/20 09:00 05/06/20 14:51 Clonazepam 0.5 Mg Tablet PO 0.5 mg TID [facility] Administration Heparin Sodium (Porcine) 5,000 unit 05/04/20 22:00 05/06/20 08:40 Heparin Sodium,Porcine 5,000 Unit/Ml Vial SUBCUT 5,000 unit Q12H [facility] Administration Hydrochlorothiazide 25 mg 05/06/20 14:45 05/06/20 14:51 Hydrochlorothiazide 25 Mg Tablet PO 25 mg DAILY [facility] Administration Protocol Insulin Glargine 10 unit 05/06/20 09:00 05/06/20 08:42 Insulin Glargine,Hum.Rec.Anlog 100 Unit/Ml 10 Ml Vial SUBCUT 10 unit DAILY [facility] Administration Insulin Human Lispro 0 unit 05/05/20 07:30 05/06/20 12:40 Insulin Lispro 100 Unit/Ml 3 Ml Vial SUBCUT 6 unit QIDACHS [facility] Administration Protocol Labetalol HCl 10 mg 05/04/20 21:04 05/06/20 01:06 Labetalol Hcl 100 Mg/20 Ml Vial IVPUSH 10 mg Q4H PRN Administration BP>180/90 Losartan Potassium 50 mg 05/05/20 09:00 05/06/20 08:41 Losartan Potassium 50 Mg Tablet PO 50 mg DAILY [facility] Administration Protocol Meclizine HCl 25 mg 05/05/20 00:33 05/05/20 01:58 Meclizine Hcl 25 Mg Tablet PO 25 mg Q6H PRN Administration Dizziness Metoclopramide HCl 5 mg 05/05/20 09:00 05/06/20 12:40 Metoclopramide Hcl 5 Mg Tablet PO 5 mg QID [facility] Administration Oxycodone HCl 5 mg 05/04/20 20:48 05/06/20 14:23 Oxycodone Hcl Immed Release 5 Mg Tablet PO 5 mg Q6H PRN Administration Pain, Severe (Pain Scale 7-10) Sodium Chloride 3 ml 05/05/20 00:00 05/06/20 08:00 0.9 % Sodium Chloride Flush 3 Ml Syringe IVFLUSH 3 ml QSHIFT RAD[facility] Administration Tizanidine HCl 4 mg 05/06/20 14:41 Tizanidine Hcl 4 Mg Tablet PO Q8H PRN Headache Labs CBC & Chem 7: 05/05/20 06:13 05/05/20 06:13 Assessment and Plan (1) Hypertensive urgency: Status: Acute Assessment and Plan: 54-year-old male with a past medical history of hypertension, hyperlipidemia, diabetes, chronic kidney disease, history of COVID pneumonia presented to the hospital with a chief complaint of dizziness/shortness of breath-concern for near syncope admitted to the hospital for further management. Patient also noted to be in hypertensive urgency. 1.Near syncope: Currently improving symptomatically. Troponins negative. EKG nonischemic. PT/OT. 2.Hypertensive uncontrolled : continue losartan, added amlodipine, will add hydrochlorothiazide back due to history of Meniere as well as blood pressure uncontrolled. Headaches: Nonfocal examination. Improving. Denies any associated symptoms. CT head negative. Patient also have history of Meniere disease: Diabetes: Insulin sliding scale with coverage fs running 150-250 range Continue sliding scale coverage ckd: cr 1.6-1.7, stable. (2) Asymptomatic hypertensive urgency: Status: Acute (3) Headache: Status: Acute
[2020-05-06 17:20] LABS: Glucose, Whole Blood 190 mg/dL (60-115)
[2020-05-06] MEDS: TiZANidine HCL 4 MG TABLET PO (17:32)
[2020-05-06] MEDS: Acetaminophen 325 MG TABLET 650 MG PO (17:33)
[2020-05-06 20:37] LABS: Glucose, Whole Blood 261 mg/dL (60-115)
[2020-05-06] MEDS: Atorvastatin Calcium 10 MG TABLET PO (20:46)
[2020-05-07] VITALS (10 sets, daily range): BP systolic 116–172; BP diastolic 71–98; PULSE 80–109; RESP 10–18; TEMP 36.9–37.1; O2SAT 94–97
[2020-05-07] MEDS: Acetaminophen 325 MG TABLET 650 MG PO (00:39)
[2020-05-07] MEDS: 0.9 % Sodium Chloride Flush 3 ML SYRINGE IVFLUSH ×3 (00:39→17:23)
[2020-05-07] MEDS: TiZANidine HCL 4 MG TABLET PO (01:51)
[2020-05-07] MEDS: oxyCODONE HCl Immed Release 5 MG TABLET PO (01:52)
[2020-05-07 07:30] LABS: Glucose, Whole Blood 214 mg/dL (60-115)
[2020-05-07] MEDS: hydroCHLOROthiazide 25 MG TABLET PO (08:23)
[2020-05-07] MEDS: Butalb/Acetamin/Caff 50/325/40 TABLET 1 TAB PO (08:23)
[2020-05-07] MEDS: Losartan Potassium 50 MG TABLET PO (08:24)
[2020-05-07] MEDS: clonazePAM 0.5 MG TABLET PO ×2 (08:26→14:36)
[2020-05-07] MEDS: amLODIPine Besylate 5 MG TABLET 10 MG PO (08:26)
[2020-05-07] MEDS: Insulin Lispro 100 UNIT/ML 3 ML VIAL SUBCUT ×3 (08:29→17:23)
[2020-05-07] MEDS: Metoclopramide HCl 5 MG TABLET PO ×3 (08:30→17:23)
[2020-05-07] MEDS: Insulin Glargine,Hum.rec.anlog 100 UNIT/ML 10 ML VIAL 10 UNIT SUBCUT (08:31)
[2020-05-07 11:29] LABS: Glucose, Whole Blood 266 mg/dL (60-115)
[2020-05-07] MEDS: Heparin Sodium,Porcine 5,000 UNIT/ML VIAL 5000 UNIT SUBCUT (12:47)
[2020-05-07] MEDS: Labetalol HCL 100 MG TABLET PO (14:31)
--- NOTE | 2020-05-07 16:17 | PM.DS ---
DS: Providers Provider Date of Service: 05/07/20 Date of admission: 05/04/20 20:48 Primary care physician: Unknown Physician DS: Diagnosis Discharge Diagnosis (1) Hypertensive urgency: Status: Acute (2) Asymptomatic hypertensive urgency: Status: Acute (3) Headache: Status: Acute DS: Medications Discharge Medications Home Medications: Home Medications Medication Instructions Recorded Confirmed atorvastatin 10 mg tablet 10 mg PO DAILY 02/02/20 05/05/20 blood sugar diagnostic #10 ea 02/02/20 04/29/20 lancets 28 gauge #100 ea 02/02/20 04/29/20 meclizine 25 mg tablet 25 mg PO Q6-8H PRN 02/02/20 05/05/20 ondansetron HCl 4 mg tablet 4 mg PO Q6-8H PRN 02/02/20 05/05/20 pen needle, diabetic 32 gauge x #50 ea 02/02/20 04/29/20 triamcinolone acetonide 0.1 % 0.1 applic TOPICAL BID 02/02/20 05/05/20 topical cream Toujeo SoloStar U-300 Insulin 80 unit SUBCUT DAILY 02/24/20 05/05/20 Tradjenta 1 tab PO DAILY 02/24/20 05/05/20 insulin aspart U-100 100 unit/mL 15 - 20 unit SUBCUT TID ml 04/06/20 05/05/20 (3 mL) subcutaneous pen hydrochlorothiazide 1 tab PO DAILY 05/05/20 05/05/20 Previous Rx's Medication Instructions Recorded metoclopramide HCl 5 mg tablet 5 mg PO QID 30 Days #120 tab 02/17/20 clonazepam 0.5 mg PO TID #90 tab 02/26/20 dexamethasone 6 mg PO DAILY #7 tab 02/26/20 cholecalciferol (vitamin D3) 50 50 mcg PO DAILY #30 cap 03/04/20 mcg (2,000 unit) capsule losartan 50 mg tablet 50 mg PO DAILY #90 tab 03/22/20 famotidine 20 mg tablet 20 mg PO BID #180 tab 03/23/20 trazodone 150 mg tablet 150 mg PO BEDTIME #90 tab 03/23/20 venlafaxine 150 mg 300 mg PO QAM #90 cap 03/23/20 capsule,extended release 24 hr tizanidine 4 mg capsule 4 mg PO Q8H PRN #60 cap 04/29/20 amlodipine [Norvasc] 10 mg PO DAILY #30 tab 05/07/20 labetalol 100 mg PO BID #60 tab 05/07/20 DS: Summary Hospital Course Hospital Course: HPI:54-year-old male with a past medical history of hypertension, hyperlipidemia, diabetes, chronic kidney disease, history of COVID pneumonia presented to the hospital with a chief complaint of dizziness/shortness of breath-concern for near syncope admitted to the hospital for further management. Patient also noted to be in hypertensive urgency. Hospital course: Patient came with the hypertensive urgency : Subsequently was admitted due to that. Patient blood pressure medications were continued and amlodipine added- seems like blood pressure improved, will need outpatient follow-up with PCP closely for further management. There was initially also- he has presyncope : seems telemetry seems fine, ct head neg, orthostasis negative-further workup outpatiently. Headaches: Nonfocal examination. Improving. Denies any associated symptoms. CT head negative. Patient also have history of Meniere disease: Started back his hydrochlorothiazide and meclizine seems to be improving. Patient was told to use low-sodium diet, exercise and weight loss. In addition keep a monitor and blood pressure log: Patient already has VNA at home, he will resume that. If blood pressure still stays the issue outpatient workup with PCP should be pursued further. Above management discussed with the patient in detail length he understand and in agreement with the above plan, time spent 50 minutes and 50% time spent on counseling. Significant findings: As above. Procedures performed: None. Treatment and response: As above. Complications: None. Time Spent with Patient Time attestation: Total time spent providing and/or coordinating discharge services: Discharge coordination time: Greater than 30 minutes Physical Exam Vital Signs: Vital Signs: Last Vital Signs Temp 98.6 F 05/07/20 16:00 Pulse 106 H 05/07/20 14:31 Resp 18 05/07/20 16:00 BP 116/71 05/07/20 16:00 Pulse Ox 95 05/07/20 16:00 Body Mass Index 30.2 Cvs: rrr, [id number] , no murmur res: clear to auscultation ,no rhonchii or wheezing abd: no rebound or guarding ,nt, bs present. ext pulses present , no cyanosis neuro: axo3 , nonfocal. DS: Data Data Completed and Pending Labs on day of discharge: Laboratory Tests 05/04/20 05/04/20 05/04/20 15:45 16:06 16:06 WBC 9.1 RBC 4.03 L Hgb 12.7 L Hct 35.6 L MCV 88.3 MCH 31.5 MCHC 35.7 RDW 12.7 Plt Count 211 MPV 11.0 Immature Gran % (Auto) 0.4 Neut % (Auto) 70.9 Lymph % (Auto) 17.9 L [place] % (Auto) 9.1 Eos % (Auto) 1.0 Baso % (Auto) 0.7 Lymph # (Auto) 1.6 [place] # (Auto) 0.8 Eos # (Auto) 0.1 Baso # (Auto) 0.1 Abs Immat Gran (auto) 0.04 H Absolute Neuts (auto) 6.5 Absolute Nucleated RBC 0.000 Nucleated RBC % (auto) 0.0 PT 11.7 INR 1.0 APTT 36.2 D-Dimer < 200 Sodium Potassium Chloride Carbon Dioxide Anion Gap BUN Creatinine Estim Creat Clear Calc Estimated GFR POC Glucose 289 H Random Glucose Calcium Total Bilirubin AST ALT Alkaline Phosphatase Troponin I High Sens B-Natriuretic Peptide Total Protein Albumin COVID-19 (ANGI) COVID-ByteActive 05/04/20 05/04/20 05/04/20 16:06 16:06 16:06 WBC RBC Hgb Hct MCV MCH MCHC RDW Plt Count MPV Immature Gran % (Auto) Neut % (Auto) Lymph % (Auto) [place] % (Auto) Eos % (Auto) Baso % (Auto) Lymph # (Auto) [place] # (Auto) Eos # (Auto) Baso # (Auto) Abs Immat Gran (auto) Absolute Neuts (auto) Absolute Nucleated RBC Nucleated RBC % (auto) PT INR APTT D-Dimer Sodium 134 L Potassium 4.6 Chloride 97 Carbon Dioxide 24 Anion Gap 18 BUN 32 H Creatinine 2.03 H Estim Creat Clear Calc 51.1 Estimated GFR 34 POC Glucose Random Glucose 303 H D Calcium 8.8 D Total Bilirubin 0.2 AST 33 ALT 22 Alkaline Phosphatase 97 Troponin I High Sens 10.3 B-Natriuretic Peptide 17 Cancelled Total Protein 6.9 Albumin 3.9 D COVID-19 (ANGI) COVID-19 Clin Com 05/04/20 05/04/20 05/04/20 19:21 20:54 21:41 WBC RBC Hgb Hct MCV MCH MCHC RDW Plt Count MPV Immature Gran % (Auto) Neut % (Auto) Lymph % (Auto) [place] % (Auto) Eos % (Auto) Baso % (Auto) Lymph # (Auto) [place] # (Auto) Eos # (Auto) Baso # (Auto) Abs Immat Gran (auto) Absolute Neuts (auto) Absolute Nucleated RBC Nucleated RBC % (auto) PT INR APTT D-Dimer Sodium Potassium Chloride Carbon Dioxide Anion Gap BUN Creatinine Estim Creat Clear Calc Estimated GFR POC Glucose 260 H Random Glucose Calcium Total Bilirubin AST ALT Alkaline Phosphatase Troponin I High Sens 9.9 B-Natriuretic Peptide Total Protein Albumin COVID-19 (ANGI) Negative COVID-19 Resolver See Note 05/05/20 05/05/20 05/05/20 06:13 06:13 08:16 WBC 8.0 RBC 4.12 L Hgb 12.3 L Hct 36.7 L MCV 89.1 MCH 29.9 MCHC 33.5 RDW 12.6 Plt Count 210 MPV 10.9 Immature Gran % (Auto) 0.5 H Neut % (Auto) 59.1 Lymph % (Auto) 26.6 [place] % (Auto) 9.5 Eos % (Auto) 2.9 Baso % (Auto) 1.4 Lymph # (Auto) 2.1 [place] # (Auto) 0.8 Eos # (Auto) 0.2 Baso # (Auto) 0.1 Abs Immat Gran (auto) 0.04 H Absolute Neuts (auto) 4.7 Absolute Nucleated RBC 0.000 Nucleated RBC % (auto) 0.0 PT INR APTT D-Dimer Sodium 136 Potassium 4.1 Chloride 98 Carbon Dioxide 28 Anion Gap 14 BUN 27 H Creatinine 1.74 H Estim Creat Clear Calc 59.6 Estimated GFR 41 POC Glucose 260 H Random Glucose 169 H D Calcium 9.1 Total Bilirubin AST ALT Alkaline Phosphatase Troponin I High Sens B-Natriuretic Peptide Total Protein Albumin COVID-19 (ANGI) COVID-19 Resolver 05/05/20 05/05/20 05/05/20 11:55 16:51 20:47 WBC RBC Hgb Hct MCV MCH MCHC RDW Plt Count MPV Immature Gran % (Auto) Neut % (Auto) Lymph % (Auto) [place] % (Auto) Eos % (Auto) Baso % (Auto) Lymph # (Auto) [place] # (Auto) Eos # (Auto) Baso # (Auto) Abs Immat Gran (auto) Absolute Neuts (auto) Absolute Nucleated RBC Nucleated RBC % (auto) PT INR APTT D-Dimer Sodium Potassium Chloride Carbon Dioxide Anion Gap BUN Creatinine Estim Creat Clear Calc Estimated GFR POC Glucose 258 H 254 H 236 H Random Glucose Calcium Total Bilirubin AST ALT Alkaline Phosphatase Troponin I High Sens B-Natriuretic Peptide Total Protein Albumin COVID-19 (ANGI) COVID-19 Resolver 05/06/20 05/06/20 05/06/20 07:03 11:15 17:15 WBC RBC Hgb Hct MCV MCH MCHC RDW Plt Count MPV Immature Gran % (Auto) Neut % (Auto) Lymph % (Auto) [place] % (Auto) Eos % (Auto) Baso % (Auto) Lymph # (Auto) [place] # (Auto) Eos # (Auto) Baso # (Auto) Abs Immat Gran (auto) Absolute Neuts (auto) Absolute Nucleated RBC Nucleated RBC % (auto) PT INR APTT D-Dimer Sodium Potassium Chloride Carbon Dioxide Anion Gap BUN Creatinine Estim Creat Clear Calc Estimated GFR POC Glucose 176 H 271 H 190 H Random Glucose Calcium Total Bilirubin AST ALT Alkaline Phosphatase Troponin I High Sens B-Natriuretic Peptide Total Protein Albumin COVID-19 (ANGI) [employer] 05/06/20 05/07/20 05/07/20 20:34 07:20 11:17 WBC RBC Hgb Hct MCV MCH MCHC RDW Plt Count MPV Immature Gran % (Auto) Neut % (Auto) Lymph % (Auto) [place] % (Auto) Eos % (Auto) Baso % (Auto) Lymph # (Auto) [place] # (Auto) Eos # (Auto) Baso # (Auto) Abs Immat Gran (auto) Absolute Neuts (auto) Absolute Nucleated RBC Nucleated RBC % (auto) PT INR APTT D-Dimer Sodium Potassium Chloride Carbon Dioxide Anion Gap BUN Creatinine Estim Creat Clear Calc Estimated GFR POC Glucose 261 H 214 H 266 H Random Glucose Calcium Total Bilirubin AST ALT Alkaline Phosphatase Troponin I High Sens B-Natriuretic Peptide Total Protein Albumin COVID-19 (ANGI) COVID-19 [employer] Com Discharge Plan Discharge Patient Disposition: Home Health Service Referrals: Physician,Unknown [Primary Care Provider] - Discharge Medications: New amlodipine [Norvasc] 10 mg tablet 10 mg PO DAILY Qty: 30 RF: 0 labetalol 100 mg Tablet 100 mg PO BID Qty: 60 RF: 0 Continued metoclopramide HCl 5 mg tablet 5 mg PO QID 30 Days Qty: 120 RF: 1 cholecalciferol (vitamin D3) [D3-2000] 50 mcg (2,000 unit) capsule 50 mcg PO DAILY Qty: 30 RF: 6 losartan 50 mg tablet 50 mg PO DAILY Qty: 90 RF: 8 famotidine 20 mg tablet 20 mg PO BID Qty: 180 RF: 8 trazodone 150 mg tablet 150 mg PO BEDTIME Qty: 90 RF: 8 venlafaxine 150 mg capsule,extended release 24hr 300 mg PO QAM Qty: 90 RF: 8 Tradjenta 5 mg tablet 1 tab PO DAILY RF: 0 Toujeo SoloStar U-300 Insulin 300 unit/mL (1.5 mL) insulin pen 80 unit subcut DAILY RF: 0 dexamethasone 6 mg tablet 6 mg PO DAILY Qty: 7 RF: 0 clonazepam 1 mg tablet 0.5 mg PO TID Qty: 90 RF: 4 hydrochlorothiazide 25 mg tablet 1 tab PO DAILY RF: 0 tizanidine 4 mg capsule 4 mg PO Q8H PRN (Reason: headach) Qty: 60 RF: 5 insulin aspart U-100 [Novolog Flexpen U-100 Insulin] 100 unit/mL (3 mL) insulin pen 15 - 20 unit subcut TID RF: 0 meclizine 25 mg tablet 25 mg PO Q6-8H PRN (Reason: Dizziness) RF: 0 ondansetron HCl 4 mg tablet 4 mg PO Q6-8H PRN (Reason: Nausea) RF: 0 (DME) pen needle, diabetic 32 gauge x 5/32 needle See Rx Instructions ea .ROUTE .MEDSUPPLY Qty: 50 RF: 0 atorvastatin 10 mg tablet 10 mg PO DAILY RF: 0 (DME) lancets 28 gauge misc See Rx Instructions ea topical QID Qty: 100 RF: 0 (DME) blood sugar diagnostic Strip See Rx Instructions ea Not Applicable .MEDSUPPLY Qty: 10 RF: 0 triamcinolone acetonide 0.1 % cream 0.1 applic topical BID RF: 0 Discharge Orders: Discharge Order (Routine); Ordered 05/07/20 Ordered By: Abril Fishman Diet: advance to usual diet and diabetic diet Activity on Discharge: As tolerated Stand Alone Forms: Patient Portal Discharge page Activity Restrictions/Additional Instructions: use your cane when ambulating. If you become dizzy, sit down in a safe place until you feel better Visit Report Forms: Patient Portal Discharge page Care Plan Goals: Patient came with the hypertensive urgency : Subsequently was admitted due to that. Patient blood pressure medications were continued and amlodipine added- seems like blood pressure improved, will need outpatient follow-up with PCP closely for further management. There was initially also- he has presyncope : seems telemetry seems fine, ct head neg, orthostasis negative-further workup outpatiently. Headaches: Nonfocal examination. Improving. Denies any associated symptoms. CT head negative. Patient also have history of Meniere disease: Started back his hydrochlorothiazide and meclizine seems to be improving. Patient was told to use low-sodium diet, exercise and weight loss. In addition keep a monitor and blood pressure log: Patient already has VNA at home, he will resume that. If blood pressure still stays the issue outpatient workup with PCP should be pursued further. Health Concerns: As above. Plan of Treatment: As above. Discharge Date/Time: 05/07/20 17:30
--- NOTE | 2020-05-07 16:21 | MHC.CM.PN ---
Patient is being discharged home with resumption of services with [facility]. Call placed to [facility], no return call. Will attempt again tomorrow. Dtr will provide transport.
[2020-05-07 16:25] LABS: Glucose, Whole Blood 241 mg/dL (60-115)
--- NOTE | 2020-05-07 16:29 | MHC.CM.PN ---
CM ANSWERED A CALL FROM [facility] TRANSITIONS OF CARE NURSE. LUIS INFORMED HER THIS PT WAS DISCHARGING HOME TODAY AND NEEDED SERVICES RESUMED. SHE REPORTS PT HAS BOTH CUSTODIAL AND HOME HEALTH SERVICES WHICH WILL BE RESTARTED.
--- NOTE | 2020-05-08 08:04 | MHC.CM.PN ---
CM spoke with [facility] nurse production roustabout Keren, patient is active with [facility]. Referral made via allscripts and alerted patient went home yesterday and will need daily med management visits resumed today.
== END 2020-05-07 17:30 | disposition home health service (06) | DRG 305 ==
LOC: HO.ED 20:56 → HO.EDOVER 22:19 → HO.ICU 05-06 07:09
PROVIDERS: Physician Assistant; Admitting Provider Hospitalist; Emergency Provider Emergency Medicine Emergency Medical Services; Visit Provider Internal Medicine
DX: I16.0 Hypertensive urgency (principal); E78.5 Hyperlipidemia, unspecified; I12.9 Hypertensive chronic kidney disease with stage 1 through stage 4 chronic kidney disease, or unspecified chronic kidney disease; E11.22 Type 2 diabetes mellitus with diabetic chronic kidney disease; N18.30 Chronic kidney disease, stage 3 unspecified; E11.40 Type 2 diabetes mellitus with diabetic neuropathy, unspecified; Z20.822 Contact with and (suspected) exposure to COVID-19; Z86.16 Personal history of COVID-19; Z77.22 Contact with and (suspected) exposure to environmental tobacco smoke (acute) (chronic); Z79.4 Long term (current) use of insulin; Z79.899 Other long term (current) drug therapy
CPT/HCPCS: 36415; 70450; 71045; 80048; 80053; 82947; 83880; 84484; 85025; 85379; 85610; 85730; 87635; 92610; 93005; 96361; 96374; 97162; 97165; 99285

== ENCOUNTER 2020-06-16 10:05 | Outpatient (REF) | payer OTHER, SELFPAY | END 2020-06-16 10:06 | disposition home or self-care (01) | LOC: HO.LAB 10:05 | PROVIDERS: Visit Provider Internal Medicine | DX: Z20.822 Contact with and (suspected) exposure to COVID-19 (principal) | CPT/HCPCS: 36415; C9803; U0003; U0005 ==

== ENCOUNTER → 2020-06-24 09:52 | Outpatient (BNVA) | payer OTHER, SELFPAY | PROVIDERS: PCP Internal Medicine; Visit Provider Nurse Practitioner | DX: K75.81 Nonalcoholic steatohepatitis (NASH) (principal); K82.4 Cholesterolosis of gallbladder; K31.84 Gastroparesis; K21.9 Gastro-esophageal reflux disease without esophagitis; R13.12 Dysphagia, oropharyngeal phase; R14.0 Abdominal distension (gaseous) | CPT/HCPCS: Q3014 ==

== ENCOUNTER 2020-07-20 19:39 | Emergency (ER) | payer OTHER, SELFPAY ==
--- NOTE | ~2020-07-20 | XR_ITS ---
EXAMINATION: PORTABLE CHEST 1 VIEW CLINICAL INFORMATION: ?chf . COMPARISON: 05/04/2020. TECHNIQUE: Portable frontal view of the chest was obtained. FINDINGS: The lungs are mildly hypoexpanded. Mild chronic appearing reticular markings are again seen bilaterally similar to the prior study with no superimposed focal infiltrate, effusion, edema, or pneumothorax. Cardiac and mediastinal silhouettes are within normal limits for technique. No acute bony abnormality seen. XR/XR chest 1V IMPRESSION: Mild chronic appearing changes similar to the 05/04/2020 exam
--- NOTE | ~2020-07-20 | CT_ITS ---
EXAMINATION: CT ABDOMEN AND PELVIS WITHOUT CONTRAST CLINICAL INFORMATION: Upper abdominal pain, ansarca . COMPARISON: 12/09/2018. TECHNIQUE: Multidetector volumetric imaging was performed from the superior aspect of the liver through the pubic symphysis without contrast per renal stone protocol. Sagittal and coronal reformatted images were obtained on the technologist workstation. This CT examination was performed using dose optimization techniques as appropriate, variously including the following: *Automated exposure control *Adjustment of mA and/or kV according to patient size (this includes techniques or standardized protocols for targeted exams where dose is matched to indication/reason for exam; i.e. extremities or head) *Use of iterative reconstruction technique DLP: 741 mGy-cm. FINDINGS: LUNG BASES: The visualized lung bases are unremarkable. LIVER, GALLBLADDER, BILIARY TREE: The non-contrast liver is normal in size, shape, and attenuation. No focal hepatic lesion or biliary ductal dilatation is present. Likely gallstones layering in the dependent portion of the otherwise unremarkable gallbladder no gallbladder wall thickening or pericholecystic inflammatory changes. PANCREAS: Unremarkable. SPLEEN: Unremarkable. ADRENAL GLANDS: Unremarkable. KIDNEYS AND URETERS: The kidneys are normal in size, shape, and attenuation. No hydronephrosis, hydroureter, or calculi seen. No perinephric stranding. BLADDER: Diffuse bladder wall thickening GASTROINTESTINAL TRACT: Moderate amount of stool seen throughout the colon. No pericolonic inflammatory changes. Tiny retrocecal appendix. Visualized small bowel unremarkable. Stomach is distended with food ABDOMINAL WALL: No significant hernia is appreciated. LYMPHOVASCULAR STRUCTURES: Mild vascular calcification within the aorta iliac system. No bulky adenopathy. PELVIC VISCERA: Unremarkable. OSSEUS STRUCTURES: Unremarkable. CT/CT abdomen pelvis wo con IMPRESSION: Moderate amount of stool seen throughout the colon. I do not appreciate any pericolonic inflammatory changes or obstructive changes. Tiny gallstones in the unremarkable gallbladder..
--- NOTE | 2020-07-20 19:42 | PC.NURSE ---
awaiting loom overhauler services to arrive to triage
[2020-07-20 20:11] VITALS: BP 139/69; PULSE 95; RESP 18; TEMP 36.6; O2SAT 97; BMI 32.1
[2020-07-20 21:06] LABS: Basophils Percent Auto 0.3 % (0-2); Eosinophils Percent Auto 0.2 % (0-4); Hematocrit 33.3 % (42-52); Hemoglobin 11.9 g/dl (14.0-18.0); Imm Gran Abs Auto 0.08 X10*3/uL (0.00-0.03); Imm Gran Pct Auto 0.5 % (0.0-0.4); Lymphocytes Absolute Auto 0.7 X10*3/uL (1.2-4.9); Lymphocytes Percent Auto 4.5 % (20-40); MANUAL DIFF FLAG SCAN; Mean Corpuscular HGB Conc 35.7 g/dl (31.0-36.0); Mean Corpuscular Hemoglobin 29.7 pg (27.0-33.0); Mean Platelet Volume 9.8 fL (9.4-12.4); Monocytes Absolute Auto 0.3 X10*3/uL (0.1-1.2); Monocytes Percent Auto 2.3 % (2-11); Neutrophils Absolute Auto 13.7 X10*3/uL (2.0-8.3); Neutrophils Percent Auto 92.2 % (45-73); Platelet Count 244 X10*3/uL (160-400); Red Blood Count 4.01 X10*6/uL (4.60-5.80); Red Cell Distribution Width 11.9 % (11.0-16.0); SCAN SMEAR FLAG 1; White Blood Count 14.9 X10*3/uL (4.8-10.8)
[2020-07-20 21:23] LABS: SLIDE REVIEW VERIFIED
[2020-07-20 21:33] VITALS: BP 152/77; PULSE 108; RESP 30; TEMP 37; O2SAT 96
--- NOTE | 2020-07-20 21:49 | ED.ABDPAIN ---
HPI - Abdominal Pain General Chief Complaint: Abdominal Pain Stated Complaint: Abdominal pain Time Seen by Provider: 07/20/20 21:49 Source: patient Mode of arrival: ambulatory Limitations: no limitations History of Present Illness HPI narrative: Patient with diabetes gastroparesis good history of COVID infection and constipation comes here for upper abdominal pain for last few hours as with nausea no vomiting according to him he is moving his bowels normally. Also patient noticed increased swelling extremity swelling for last few weeks. Patient denied any shortness of breath no chest pain no cough no blood in the stool Pertinent past history: constipation Related Data Home Medications Medication Instructions Recorded Confirmed atorvastatin 10 mg tablet 10 mg PO DAILY 02/02/20 05/20/20 blood sugar diagnostic #10 ea 02/02/20 05/20/20 lancets 28 gauge #100 ea 02/02/20 05/20/20 meclizine 25 mg tablet 25 mg PO Q6-8H PRN 02/02/20 05/20/20 ondansetron HCl 4 mg tablet 4 mg PO Q6-8H PRN 02/02/20 05/20/20 pen needle, diabetic 32 gauge x #50 ea 02/02/20 05/20/20 triamcinolone acetonide 0.1 % 0.1 applic TOPICAL BID 02/02/20 05/20/20 topical cream Toujeo SoloStar U-300 Insulin 80 unit SUBCUT DAILY 02/24/20 05/20/20 Tradjenta 1 tab PO DAILY 02/24/20 05/20/20 insulin aspart U-100 100 unit/mL 15 - 20 unit SUBCUT TID ml 04/06/20 05/20/20 (3 mL) subcutaneous pen Previous Rx's Medication Instructions Recorded metoclopramide HCl 5 mg tablet 5 mg PO QID 30 Days #120 tab 02/17/20 clonazepam 0.5 mg PO TID #90 tab 02/26/20 dexamethasone 6 mg PO DAILY #7 tab 02/26/20 cholecalciferol (vitamin D3) 50 50 mcg PO DAILY #30 cap 03/04/20 mcg (2,000 unit) capsule losartan 50 mg tablet 50 mg PO DAILY #90 tab 03/22/20 famotidine 20 mg tablet 20 mg PO BID #180 tab 03/23/20 trazodone 150 mg tablet 150 mg PO BEDTIME #90 tab 03/23/20 venlafaxine 150 mg 300 mg PO QAM #90 cap 03/23/20 capsule,extended release 24 hr tizanidine 4 mg capsule 4 mg PO Q8H PRN #60 cap 04/29/20 labetalol 100 mg PO BID #60 tab 05/07/20 pen needle, diabetic 32 gauge x #400 ea 05/11/20 bupropion HCl 150 mg 24 hr tablet, 150 mg PO BID #180 tab 05/23/20 extended release amlodipine 10 mg tablet 10 mg PO DAILY #30 tab 06/08/20 lancets 28 gauge #150 ea 06/17/20 simethicone 180 mg capsule 180 mg PO TID 30 Days #90 cap 06/24/20 hydrochlorothiazide 25 mg tablet 25 mg PO DAILY #90 tab 07/13/20 prucalopride 2 mg tablet 2 mg PO DAILY 30 Days #30 tab 07/15/20 furosemide [Lasix] 20 mg PO QAM #20 tab 07/21/20 polyethylene glycol 3350 [Miralax] 17 g PO DAILY #510 g 07/21/20 Allergies Allergy/AdvReac Type Severity Reaction Status Date / Time cephalexin [From KEFLEX] Allergy Mild ITCHY Verified 06/24/20 09:52 THROAT lisinopril [LISINOPRIL] Allergy Unknown SWELLING Verified 06/24/20 09:52 COUGH Review of Systems Review of Systems Constitutional : No Weight loss, No Fever, No Chills ENT/Mouth : No sore throat, No Rhinorrhea Eyes: No Eye Pain, No Swelling Cardiovascular : No Chest Pain, no palpitations Respiratory : No Cough, No Sputum, no shortness of breath Gastrointestinal : + Nausea, No Vomiting, No Diarrhea, + abdominal Pain, no black stools Genitourinary : No Dysuria, No Urinary Frequency Musculoskeletal : No joint pain, No Myalgias, No Joint Swelling Skin : No Skin Lesions, No rash Neuro : No Weakness, No Numbness, No Dizziness, No Headache Psych : No Anxiety/Panic, No Depression Heme/Lymph: No Bruising, No Lymphadenopathy Endocrine : No Polyuria, No Polydipsia All other systems reviewed and are negative Physical Exam Vital Signs: Vital Signs: Last Vital Signs Temp 98.6 F 07/20/20 21:33 Pulse 115 H 07/20/20 22:00 Resp 36 H 07/20/20 22:00 BP 167/84 H 07/20/20 22:00 Pulse Ox 96 07/20/20 21:33 Body Mass Index 32.1 MDM - Abdominal Pain MDM Narrative Medical decision making narrative: Patient diffuse abdominal pain with slight elevated white count to 14.[address] scan showed constipation and other acute pathology. Will discharge patient home on stool softener advised to drink plenty of fluids and follow-up with PCP also patient had diffuse swelling of the legs with fluid retention BNP of 25 troponin less than 3.5 will give small dose of diuretics advised to follow-up with maintenance custodian and PCP Differential Diagnosis Differential diagnosis: Likely abdominal pain Lab Data Attestation: I reviewed the patient's lab results. Result diagrams: 07/20/20 20:51 07/20/20 20:51 Labs: Lab Results 07/20/20 07/20/20 07/20/20 Range/Units 20:51 20:51 20:51 WBC 14.9 H (4.8-10.8) X10*3/uL RBC 4.01 L (4.60-5.80) X10*6/uL Hgb 11.9 L (14.0-18.0) g/dl Hct 33.3 L (42-52) % MCV 83.0 (80-98) fL MCH 29.7 (27.0-33.0) pg MCHC 35.7 (31.0-36.0) g/dl RDW 11.9 (11.0-16.0) % Plt Count 244 (160-400) X10*3/uL MPV 9.8 (9.4-12.4) fL Immature Gran % (Auto) 0.5 H (0.0-0.4) % Neut % (Auto) 92.2 H (45-73) % Lymph % (Auto) 4.5 L (20-40) % [place] % (Auto) 2.3 (2-11) % Eos % (Auto) 0.2 (0-4) % Baso % (Auto) 0.3 (0-2) % Lymph # (Auto) 0.7 L (1.2-4.9) X10*3/uL [place] # (Auto) 0.3 (0.1-1.2) X10*3/uL Eos # (Auto) 0.0 (0.0-0.4) X10*3/uL Baso # (Auto) 0.0 (0.0-0.2) X10*3/uL Abs Immat Gran (auto) 0.08 H (0.00-0.03) X10*3/uL Absolute Neuts (auto) 13.7 H (2.0-8.3) X10*3/uL Absolute Nucleated RBC 0.000 (0.0-0.012) X10*3/uL Nucleated RBC % (auto) 0.0 (0.0-0.2) /100WBC Smear Tech's Comments VERIFIED PT 12.3 (10.8-13.0) SEC INR 1.0 (0.9-1.1) APTT 34.2 (24.1-38.0) SEC Hold Blue Top SEE NOTE Sodium 134 L (135-145) mmol/L Potassium 4.1 (3.3-5.1) mmol/L Chloride 99 (96-108) mmol/L Carbon Dioxide 24 (22-29) mmol/L Anion Gap 15 (12-20) BUN 30 H (9-16) mg/dL Creatinine 2.54 H (0.5-1.4) mg/dL Estim Creat Clear Calc 38.5 Estimated GFR 27 Random Glucose 338 H D (60-115) mg/dL Calcium 9.4 (8.4-10.2) mg/dL Total Bilirubin 1.6 H (0.0-1.0) mg/dL AST 126 H (5-37) U/L ALT 96 H (0-40) U/L Alkaline Phosphatase 125 H D (39-117) U/L Troponin I High Sens (<3.5-35.0) ng/L B-Natriuretic Peptide (<100) pg/mL Total Protein 7.6 (6.5-8.0) g/dL Albumin 4.2 (3.5-5.0) g/dL Lipase 52 (8-78) U/L 07/20/20 Range/Units 20:51 WBC (4.8-10.8) X10*3/uL RBC (4.60-5.80) X10*6/uL Hgb (14.0-18.0) g/dl Hct (42-52) % MCV (80-98) fL MCH (27.0-33.0) pg MCHC (31.0-36.0) g/dl RDW (11.0-16.0) % Plt Count (160-400) X10*3/uL MPV (9.4-12.4) fL Immature Gran % (Auto) (0.0-0.4) % Neut % (Auto) (45-73) % Lymph % (Auto) (20-40) % [place] % (Auto) (2-11) % Eos % (Auto) (0-4) % Baso % (Auto) (0-2) % Lymph # (Auto) (1.2-4.9) X10*3/uL [place] # (Auto) (0.1-1.2) X10*3/uL Eos # (Auto) (0.0-0.4) X10*3/uL Baso # (Auto) (0.0-0.2) X10*3/uL Abs Immat Gran (auto) (0.00-0.03) X10*3/uL Absolute Neuts (auto) (2.0-8.3) X10*3/uL Absolute Nucleated RBC (0.0-0.012) X10*3/uL Nucleated RBC % (auto) (0.0-0.2) /100WBC Smear Tech's Comments PT (10.8-13.0) SEC INR (0.9-1.1) APTT (24.1-38.0) SEC Hold Blue Top Sodium (135-145) mmol/L Potassium (3.3-5.1) mmol/L Chloride (96-108) mmol/L Carbon Dioxide (22-29) mmol/L Anion Gap (12-20) BUN (9-16) mg/dL Creatinine (0.5-1.4) mg/dL Estim Creat Clear Calc Estimated GFR Random Glucose (60-115) mg/dL Calcium (8.4-10.2) mg/dL Total Bilirubin (0.0-1.0) mg/dL AST (5-37) U/L ALT (0-40) U/L Alkaline Phosphatase (39-117) U/L Troponin I High Sens < 3.5 D (<3.5-35.0) ng/L B-Natriuretic Peptide 25 (<100) pg/mL Total Protein (6.5-8.0) g/dL Albumin (3.5-5.0) g/dL Lipase (8-78) U/L Discharge Plan Discharge Clinical Impression: Leg edema Constipation Qualifiers: Constipation type: chronic idiopathic constipation Qualified Code(s): K59.04 - Chronic idiopathic constipation Renal failure (ARF), acute on chronic Qualifiers: Acute renal failure type: unspecified Chronic kidney disease stage: stage 3 (moderate) Chronic kidney disease stage 3 subtype: stage 3b (GFR 30-44) Qualified Code(s): N17.9 - Acute kidney failure, unspecified Patient Disposition: Home, Self-Care Instructions: Constipation (ED), Chronic Kidney Disease (ED), Leg Edema (ED) Additional Instructions: Drink plenty of fluids take water pill as advised daily. Follow-up with your PCP/maintenance custodian. Take medication for constipation Prescriptions: New polyethylene glycol 3350 [Miralax] 17 gram/dose powder 17 g PO DAILY Qty: 510 RF: 0 furosemide [Lasix] 20 mg tablet 20 mg PO QAM Qty: 20 RF: 0 No Action metoclopramide HCl 5 mg tablet 5 mg PO QID 30 Days Qty: 120 RF: 1 cholecalciferol (vitamin D3) [D3-2000] 50 mcg (2,000 unit) capsule 50 mcg PO DAILY Qty: 30 RF: 6 losartan 50 mg tablet 50 mg PO DAILY Qty: 90 RF: 8 famotidine 20 mg tablet 20 mg PO BID Qty: 180 RF: 8 trazodone 150 mg tablet 150 mg PO BEDTIME Qty: 90 RF: 8 venlafaxine 150 mg capsule,extended release 24hr 300 mg PO QAM Qty: 90 RF: 8 (DME) pen needle, diabetic [BD Kacey 2nd Gen Pen Needle] 32 gauge x 5/32 needle See Rx Instructions .MEDSUPPLY Qty: 400 RF: 4 bupropion HCl 150 mg tablet extended release 24 hr 150 mg PO BID Qty: 180 RF: 0 amlodipine [Norvasc] 10 mg tablet 10 mg PO DAILY Qty: 30 RF: 8 (DME) lancets [FreeStyle Lancets] 28 gauge misc See Rx Instructions .MEDSUPPLY Qty: 150 RF: 5 hydrochlorothiazide 25 mg tablet 25 mg PO DAILY Qty: 90 RF: 8 Motegrity 2 mg tablet 2 mg PO DAILY 30 Days Qty: 30 RF: 2 Tradjenta 5 mg tablet 1 tab PO DAILY RF: 0 Toujeo SoloStar U-300 Insulin 300 unit/mL (1.5 mL) insulin pen 80 unit subcut DAILY RF: 0 dexamethasone 6 mg tablet 6 mg PO DAILY Qty: 7 RF: 0 clonazepam 1 mg tablet 0.5 mg PO TID Qty: 90 RF: 4 labetalol 100 mg Tablet 100 mg PO BID Qty: 60 RF: 0 tizanidine 4 mg capsule 4 mg PO Q8H PRN (Reason: headach) Qty: 60 RF: 5 insulin aspart U-100 [Novolog Flexpen U-100 Insulin] 100 unit/mL (3 mL) insulin pen 15 - 20 unit subcut TID RF: 0 simethicone 180 mg capsule 180 mg PO TID 30 Days Qty: 90 RF: 3 meclizine 25 mg tablet 25 mg PO Q6-8H PRN (Reason: Dizziness) RF: 0 ondansetron HCl 4 mg tablet 4 mg PO Q6-8H PRN (Reason: Nausea) RF: 0 (DME) pen needle, diabetic 32 gauge x 5/32 needle See Rx Instructions ea .ROUTE .MEDSUPPLY Qty: 50 RF: 0 atorvastatin 10 mg tablet 10 mg PO DAILY RF: 0 (DME) lancets 28 gauge misc See Rx Instructions ea topical QID Qty: 100 RF: 0 (DME) blood sugar diagnostic Strip See Rx Instructions ea Not Applicable .MEDSUPPLY Qty: 10 RF: 0 triamcinolone acetonide 0.1 % cream 0.1 applic topical BID RF: 0 PMFSH Past Medical History Medical History (Updated 07/21/20 @ 01:18 by Noe Kauffman MD) Anxiety CKD (chronic kidney disease) stage 3, GFR 30-59 ml/min Depression Diabetes Diabetes type 2, uncontrolled Diabetic nephropathy associated with type 2 diabetes mellitus Diabetic neuropathy associated with type 2 diabetes mellitus Dyslipidemia High cholesterol Hypercalcemia Hyperlipidemia Hypertension snf (current) use of insulin Neuropathy Obesity (BMI 30-39.9) Sleep apnea Vitamin D deficiency Surgical History History of esophagogastroduodenoscopy (EGD) Hx of arthroscopy of knee Hx of arthroscopy of right knee Family History Family History Father Diabetes Mother No problems noted. Social History Social History (Updated 06/24/20 @ 09:54 by JOSE MANUEL Damico) Household Members: Family and Other Housing: Apartment Alcohol intake: never Smoking Status: Never smoker Second Hand Smoke Exposure: Yes (HISTORY OF SECOND HAND SMOKE EXPOSURE) Use of substances other than those prescribed or required for medical reasons: No Advance Directives: Yes Advance Directives on File: Yes Advance Directives Date on File: 05/05/20 service: No Current occupational status: disabled
[2020-07-20 21:50] LABS: Alanine Aminotransferase 96 U/L (0-40); Albumin Level 4.2 g/dL (3.5-5.0); Alkaline Phosphatase 125 U/L (39-117); Anion Gap 15 (12-20); Aspartate Amino Transferase 126 U/L (5-37); Bilirubin Total 1.6 mg/dL (0.0-1.0); Blood Urea Nitrogen 30 mg/dL (9-16); Calcium 9.4 mg/dL (8.4-10.2); Carbon Dioxide 24 mmol/L (22-29); Chloride 99 mmol/L (96-108); Creatinine Clr Calc Pharmacy 38.5; Estimated Glomerular Filt Rate 27; Glucose Random 338 mg/dL (60-115); Potassium 4.1 mmol/L (3.3-5.1); Sodium 134 mmol/L (135-145); Total Protein 7.6 g/dL (6.5-8.0)
[2020-07-20 22:00] VITALS: BP 167/84; PULSE 115; RESP 36
[2020-07-20 22:07] LABS: Prothrombin Time 12.3 SEC (10.8-13.0)
[2020-07-20 22:09] LABS: Partial Thromboplastin Time 34.2 SEC (24.1-38.0)
[2020-07-20 22:16] LABS: Lipase 52 U/L (8-78)
[2020-07-20 22:31] LABS: B Type Natriuretic Peptide 25 pg/mL (<100); Troponin-I High Sensitivity < 3.5 ng/L (<3.5-35.0)
[2020-07-20] MEDS: Milk of Magnesia 30 ML ORAL.SUSP PO (23:04)
[2020-07-20] MEDS: Furosemide 20 MG/2 ML VIAL IVPUSH (23:04)
== END 2020-07-21 01:53 | disposition home or self-care (01) ==
PROVIDERS: Emergency Provider Internal Medicine; PCP Internal Medicine
DX: K59.04 Chronic idiopathic constipation (principal); R60.0 Localized edema; E11.22 Type 2 diabetes mellitus with diabetic chronic kidney disease; N18.30 Chronic kidney disease, stage 3 unspecified; R10.10 Upper abdominal pain, unspecified; E78.5 Hyperlipidemia, unspecified; Z79.4 Long term (current) use of insulin; Z79.02 Long term (current) use of antithrombotics/antiplatelets; Z86.16 Personal history of COVID-19
CPT/HCPCS: 36415; 71045; 74176; 80053; 83690; 83880; 84484; 85025; 85610; 85730; 96374; 96376; 99284; J1940

== ENCOUNTER → 2020-07-25 09:29 | Outpatient (BNVA) | payer OTHER, SELFPAY | PROVIDERS: PCP Internal Medicine; Visit Provider Nurse Practitioner | DX: Z13.89 Encounter for screening for other disorder (principal) | CPT/HCPCS: Q3014 ==

== ENCOUNTER 2020-07-29 12:12 | Outpatient (REF) | payer OTHER, SELFPAY ==
[2020-07-29 14:51] LABS: Alanine Aminotransferase 579 U/L (0-40); Alkaline Phosphatase 686 U/L (39-117); Aspartate Amino Transferase 165 U/L (5-37); Bilirubin Direct 1.9 mg/dL (0.0-0.5); Bilirubin Total 2.8 mg/dL (0.0-1.0); Cholesterol 355 mg/dL; HDL Cholesterol 35 mg/dL; Total Protein 7.6 g/dL (6.5-8.0); Triglycerides 406 mg/dL
[2020-07-29 15:11] LABS: Gamma Glutamyl Transpeptidase 2608 U/L (11-51)
[2020-07-30 06:01] LABS: LDL Cholesterol Direct 194 mg/dL (<100)
== END 2020-07-29 12:13 | disposition home or self-care (01) ==
LOC: HO.LAB 12:12
PROVIDERS: PCP Internal Medicine; Visit Provider Internal Medicine Endocrinology, Diabetes & Metabolism
DX: Z13.89 Encounter for screening for other disorder (principal)
CPT/HCPCS: 36415; 80061; 80076; 82947; 82977; 83721; 99212

== ENCOUNTER 2020-07-29 17:33 | Inpatient (IN) | payer OTHER, SELFPAY ==
--- NOTE | ~2020-07-29 | US_ITS ---
EXAMINATION: US ABDOMEN LIMITED CLINICAL INFORMATION: Elevated LFTs. COMPARISON: CT scan of the abdomen and pelvis dated 05/22/2020 and abdominal ultrasound dated 04/20/2019. TECHNIQUE: Real-time imaging of the right upper quadrant abdominal viscera. FINDINGS: PANCREAS: Visualized portions unremarkable. LIVER: Unremarkable. GALLBLADDER: Incompletely distended with mild diffuse mural thickening and mild dependent sludge in the fundus. No pericholecystic fluid is seen. Color Doppler showed no abnormal vascular flow. COMMON BILE DUCT: Normal in caliber measuring 0.3 cm in diameter. RIGHT KIDNEY: 12.2 cm. Unremarkable. FREE FLUID: None. US/US abdomen limited IMPRESSION: Mild diffuse mural thickening in the gallbladder is nonspecific and a secondary to incomplete distention. Mild sludge is seen. No pericholecystic fluid. If symptoms persist or worsen, short-term repeat right upper quadrant ultrasound is recommended to assess for change as developing cholecystitis cannot be excluded.
--- NOTE | ~2020-07-29 | MR_ITS ---
EXAMINATION: MR ABDOMEN WITHOUT CONTRAST CLINICAL INFORMATION: Elevated liver function tests. Gallbladder sludge. Rule out common bile duct stone. COMPARISON: Previous CT of the abdomen and pelvis 07/20/2020 and abdominal ultrasound 07/29/2020 TECHNIQUE: MR abdomen is performed without gadolinium contrast. MRCP sequences were also performed. FINDINGS: LUNG BASES: The visualized lung bases are unremarkable. LIVER, GALLBLADDER, AND BILIARY TREE: The liver is normal in size, smooth in contour, and normal in signal. No focal hepatic lesion or intrahepatic biliary ductal dilatation is present. There is sludge in the gallbladder. No definite gallstones are seen. The gallbladder is normal in size. The gallbladder wall is normal. There is no pericholecystic fluid. The extrahepatic bile ducts are normal in caliber. The common bile duct measures 3 mm. No common bile duct stone is seen. PANCREAS: Unremarkable. The main pancreatic duct is normal. SPLEEN: Unremarkable. ADRENAL GLANDS: Unremarkable. KIDNEYS AND URETERS: The kidneys are normal in size and shape. No hydronephrosis. No perinephric stranding. GASTROINTESTINAL TRACT: No bowel obstruction. No ascites or fluid collection. ABDOMINAL WALL: No significant hernia is appreciated. LYMPH NODES: No lymphadenopathy. VASCULAR: Unremarkable. OSSEOUS STRUCTURES: Marrow signal normal. MR/MR MRCP IMPRESSION: Small amount of sludge in the gallbladder. Otherwise normal abdominal MRI and MRCP. No evidence of biliary duct dilatation or common bile duct stone.
[2020-07-29 18:39] VITALS: BP 148/83; PULSE 93; RESP 18; TEMP 36.9; O2SAT 98; BMI 32.1
[2020-07-29 19:29] LABS: MANUAL DIFF FLAG NO
[2020-07-29 19:31] LABS: Basophils Absolute Auto 0.1 X10*3/uL (0.0-0.2); Eosinophils Absolute Auto 0.1 X10*3/uL (0.0-0.4); Hematocrit 33.3 % (42-52); Hemoglobin 10.9 g/dl (14.0-18.0); Imm Gran Abs Auto 0.16 X10*3/uL (0.00-0.03); Imm Gran Pct Auto 1.9 % (0.0-0.4); Lymphocytes Absolute Auto 1.5 X10*3/uL (1.2-4.9); Lymphocytes Percent Auto 18.3 % (20-40); Mean Corpuscular HGB Conc 32.7 g/dl (31.0-36.0); Mean Corpuscular Hemoglobin 29.2 pg (27.0-33.0); Mean Corpuscular Volume 89.3 fL (80-98); Mean Platelet Volume 10.7 fL (9.4-12.4); Monocytes Absolute Auto 0.6 X10*3/uL (0.1-1.2); Monocytes Percent Auto 7.6 % (2-11); Neutrophils Absolute Auto 5.9 X10*3/uL (2.0-8.3); Neutrophils Percent Auto 70.2 % (45-73); Platelet Count 322 X10*3/uL (160-400); Red Blood Count 3.73 X10*6/uL (4.60-5.80); Red Cell Distribution Width 12.8 % (11.0-16.0); White Blood Count 8.4 X10*3/uL (4.8-10.8)
[2020-07-29 19:57] LABS: Anion Gap 18 (12-20); Blood Urea Nitrogen 40 mg/dL (9-16); Calcium 9.2 mg/dL (8.4-10.2); Carbon Dioxide 24 mmol/L (22-29); Chloride 92 mmol/L (96-108); Creatinine Clr Calc Pharmacy 34.1; Estimated Glomerular Filt Rate 23; Glucose Random 468 mg/dL (60-115); Potassium 4.9 mmol/L (3.3-5.1); Sodium 129 mmol/L (135-145)
--- NOTE | 2020-07-29 22:04 | ED.RECABL ---
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 His LFTs were noted to be significantly elevated so he was told to come to the ER for evaluation. He denies any current abdominal pain, nausea, vomiting or diarrhea. He was recently seen here on 07/20 for upper abdominal pain. He was found to have mildly elevated LFTs and a CT scan showing constipation. He states his pain improved shortly after his visit here on 07/20. He denies taking any Tylenol. He reports he is on Lipitor for his high cholesterol. MD complaint: abnormal lab Initial visit (ago): hour(s) Returns today for: called because of abnormal lab/test Description of abnormal result: significantly elevated liver function tests Symptoms since prior visit: no new symptoms Context: called for abnormal lab result Associated symptoms: none Related Data Home Medications Medication Instructions Recorded Confirmed atorvastatin 10 mg tablet 10 mg PO DAILY 02/02/20 07/29/20 blood sugar diagnostic #10 ea 02/02/20 07/29/20 meclizine 25 mg tablet 25 mg PO Q6-8H PRN 02/02/20 07/29/20 ondansetron HCl 4 mg tablet 4 mg PO Q6-8H PRN 02/02/20 07/29/20 triamcinolone acetonide 0.1 % 0.1 applic TOPICAL BID 02/02/20 07/29/20 topical cream alcohol swabs 0 pad TOPICAL 07/29/20 07/29/20 Previous Rx's Medication Instructions Recorded clonazepam 0.5 mg PO TID #90 tab 02/26/20 dexamethasone 6 mg PO DAILY #7 tab 02/26/20 cholecalciferol (vitamin D3) 50 50 mcg PO DAILY #30 cap 03/04/20 mcg (2,000 unit) capsule losartan 50 mg tablet 50 mg PO DAILY #90 tab 03/22/20 famotidine 20 mg tablet 20 mg PO BID #180 tab 03/23/20 trazodone 150 mg tablet 150 mg PO BEDTIME #90 tab 03/23/20 venlafaxine 150 mg 300 mg PO QAM #90 cap 03/23/20 capsule,extended release 24 hr tizanidine 4 mg capsule 4 mg PO Q8H PRN #60 cap 04/29/20 labetalol 100 mg PO BID #60 tab 05/07/20 pen needle, diabetic 32 gauge x #400 ea 05/11/20 bupropion HCl 150 mg 24 hr tablet, 150 mg PO BID #180 tab 05/23/20 extended release amlodipine 10 mg tablet 10 mg PO DAILY #30 tab 06/08/20 lancets 28 gauge #150 ea 06/17/20 simethicone 180 mg capsule 180 mg PO TID 30 Days #90 cap 06/24/20 hydrochlorothiazide 25 mg tablet 25 mg PO DAILY #90 tab 07/13/20 prucalopride 2 mg tablet 2 mg PO DAILY 30 Days #30 tab 07/15/20 furosemide [Lasix] 20 mg PO QAM #20 tab 07/21/20 polyethylene glycol 3350 [Miralax] 17 g PO DAILY #510 g 07/21/20 metoclopramide HCl 5 mg tablet 5 mg PO QID 30 Days #120 tab 07/25/20 insulin aspart U-100 100 unit/mL See Rx Instructions SUBCUT TID 30 07/29/20 (3 mL) subcutaneous pen Days #30 ml insulin glargine U-300 conc 300 80 unit SUBCUT DAILY 30 Days #9 ml 07/29/20 unit/mL (3 mL) subcutaneous pen linagliptin 5 mg tablet 5 mg PO DAILY 30 Days #30 tab 07/29/20 Allergies Allergy/AdvReac Type Severity Reaction Status Date / Time cephalexin [From KEFLEX] Allergy Mild ITCHY Verified 07/29/20 18:39 THROAT lisinopril [LISINOPRIL] Allergy Unknown SWELLING Verified 07/29/20 18:39 COUGH Review of Systems Review of Systems: Constitutional: No Fever, No Chills ENT/Mouth: No sore throat, No Rhinorrhea, No Swallowing Difficulty Eyes: No Eye Pain, No Swelling, No Redness, +icterus Cardiovascular: No Chest Pain, No SOB, No Orthopnea, No Edema Respiratory: No Cough, No Sputum, No Wheezing, No dyspnea Gastrointestinal: No Nausea, No Vomiting, No Diarrhea, No abdominal Pain, No Hematochezia, No Melena Genitourinary: No Dysuria, No Urinary Frequency, No Hematuria Musculoskeletal: No joint pain, No Myalgias Skin: No Skin Lesions, No rash Neuro: No Weakness, No Numbness, No Dizziness, No Headache Psych: No Anxiety/Panic, No Depression Heme/Lymph: No Bruising, No Lymphadenopathy Endocrine: No Polyuria, No Polydipsia [facility] Past Medical History Attestation statement: The following information was validated with the patient. 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 Social History Social History Household Members: Family and Other Housing: Apartment Alcohol intake: never Smoking Status: Never smoker Second Hand Smoke Exposure: Yes (HISTORY OF SECOND HAND SMOKE EXPOSURE) Advance Directives: Yes Advance Directives on File: Yes Advance Directives Date on File: 05/05/20 service: No Current occupational status: disabled Physical Exam Vital Signs: Vital Signs: Last Vital Signs Temp 98.5 F 07/29/20 18:39 Pulse 93 07/29/20 18:39 Resp 18 07/29/20 18:39 BP 148/83 H 07/29/20 18:39 Pulse Ox 98 07/29/20 18:39 Body Mass Index 32.1 Appearance: Alert. Oriented X3. No acute distress. Eyes: Pupils equal, round and reactive to light. Sceral icterus is present bilaterally ENT: Pharynx normal. Neck: Normal inspection. Neck supple. CVS: Normal heart rate and rhythm. Pulses normal. Respiratory: No respiratory distress. Breath sounds normal. Abdomen: Soft and nontender. No RUQ tenderness, no rebound or guarding. +BS x4 Skin: Skin warm and dry. Normal skin color. Normal skin turgor. No rashes. Extremities: 1+ lower extremity edema. Neuro: Oriented X 3. No motor deficit. No sensory deficit. Course Course Course Narrative: 54 y/o male presenting with abnormal LFT's done on routine blood work as outpatient today. He currently has no complaints. Will repeat blood work and get RUQ U/S to assess for obstuction. Reevaluation(s) Reevaluation #1: RUQ U/S showing only mild gallbladder wall thickening and some sludge. Normal CBD. No signs of obstruction. No obvious infection given no pain, fever, leukocytosis. Recent CT scan did not show any pancreatic lesions, no need to repeat CT scan at this time. Dr. Denton from GI was contacted who agrees with admission to the hospital for further workup and management. Will hold statin. Hepatitis panel and INR/PT added. Dr. Choi to admit. Consultations Consultation #1: GI - Dr. Denton MDM - Recheck/Abnormal Lab/Rx Lab Data Result diagrams: 07/29/20 18:50 07/29/20 18:50 Labs: Lab Results 07/29/20 07/29/20 Range/Units 18:50 18:50 WBC 8.4 (4.8-10.8) X10*3/uL RBC 3.73 L (4.60-5.80) X10*6/uL Hgb 10.9 L (14.0-18.0) g/dl Hct 33.3 L (42-52) % MCV 89.3 (80-98) fL MCH 29.2 (27.0-33.0) pg MCHC 32.7 (31.0-36.0) g/dl RDW 12.8 (11.0-16.0) % Plt Count 322 D (160-400) X10*3/uL MPV 10.7 (9.4-12.4) fL Immature Gran % (Auto) 1.9 H (0.0-0.4) % Neut % (Auto) 70.2 (45-73) % Lymph % (Auto) 18.3 L (20-40) % [place] % (Auto) 7.6 (2-11) % Eos % (Auto) 1.0 (0-4) % Baso % (Auto) 1.0 (0-2) % Lymph # (Auto) 1.5 (1.2-4.9) X10*3/uL [place] # (Auto) 0.6 (0.1-1.2) X10*3/uL Eos # (Auto) 0.1 (0.0-0.4) X10*3/uL Baso # (Auto) 0.1 (0.0-0.2) X10*3/uL Abs Immat Gran (auto) 0.16 H (0.00-0.03) X10*3/uL Absolute Neuts (auto) 5.9 (2.0-8.3) X10*3/uL Absolute Nucleated RBC 0.000 (0.0-0.012) X10*3/uL Nucleated RBC % (auto) 0.0 (0.0-0.2) /100WBC Sodium 129 L (135-145) mmol/L Potassium 4.9 (3.3-5.1) mmol/L Chloride 92 L (96-108) mmol/L Carbon Dioxide 24 (22-29) mmol/L Anion Gap 18 (12-20) BUN 40 H (9-16) mg/dL Creatinine 2.87 H (0.5-1.4) mg/dL Estim Creat Clear Calc 34.1 Estimated GFR 23 Random Glucose 468 H* (60-115) mg/dL Calcium 9.2 (8.4-10.2) mg/dL Total Bilirubin 2.7 H (0.0-1.0) mg/dL Direct Bilirubin 1.9 H (0.0-0.5) mg/dL AST 175 H (5-37) U/L ALT 563 H (0-40) U/L Alkaline Phosphatase 671 H (39-117) U/L Total Protein 7.8 (6.5-8.0) g/dL Albumin 4.0 (3.5-5.0) g/dL Lipase 105 H (8-78) U/L Acetaminophen 1 (<30) mcg/mL Critical Care Time Critical Care Time Critical Care Time: No Discharge Plan Discharge Clinical Impression: Abnormal LFTs (liver function tests), Chronic hyperglycemia Patient Disposition: Admitted As Inpatient
[2020-07-29 22:10] LABS: Alanine Aminotransferase 563 U/L (0-40); Alkaline Phosphatase 671 U/L (39-117); Aspartate Amino Transferase 175 U/L (5-37); Bilirubin Direct 1.9 mg/dL (0.0-0.5); Bilirubin Total 2.7 mg/dL (0.0-1.0); Total Protein 7.8 g/dL (6.5-8.0)
[2020-07-29] MEDS: Insulin Lispro 100 UNIT/ML 3 ML VIAL 10 UNIT SUBCUT (23:12)
--- NOTE | 2020-07-29 23:25 | PC.NURSE ---
pt a&O, no sob or chest pain. Will medicated with Mar.
[2020-07-29] MEDS: 0.9 % Sodium Chloride 1,000 ML 999 ML IVCONT (23:32)
[2020-07-29 23:34] LABS: Lipase 105 U/L (8-78)
--- NOTE | 2020-07-29 23:34 | PC.NURSE ---
Normal saline hung after difficult IV stick.
[2020-07-29 23:48] LABS: Acetaminophen LAB 1 mcg/mL (<30)
--- NOTE | 2020-07-29 23:51 | PM.IMHP ---
History of Present Illness Date of Service: 07/29/20 Chief Complaint: Icterus 54-year-old male with a past medical history of hypertension, hyperlipidemia, diabetes, CKD, neuropathy, obesity, anxiety presented to the hospital with a chief complaint of icterus. Patient mentions that he went to his doctor's office for routine visit where he was noted to have icterus and and had routine labs done which noted to have elevated liver enzymes, patient was asked to go to the ER for further evaluation. Patient denies any abdominal pain chest pain palpitations lightheadedness dizziness. Denies any eating out in restaurants; denies any nausea vomiting diarrhea. Denies any alcohol or illicit drug use. Denies fever chills cough. Review of all other systems is negative except mentioned above Patient denies taking except Tylenol. A ER course: Per ER team patient noted to have elevated liver enzymes, T bili of 2.7, mild, sodium of 129; normal saline. Patient was hyperglycemic on presentation and given Humalog insulin. ER team spoke to Dr. reardon from Gastroenterology who suggested admission to the medicine team and will be evaluated in the morning [facility] Medical History Anxiety CKD (chronic kidney disease) stage 3, GFR 30-59 ml/min Depression Diabetes Diabetes type 2, uncontrolled Diabetic nephropathy associated with type 2 diabetes mellitus Diabetic neuropathy associated with type 2 diabetes mellitus Dyslipidemia GERD (gastroesophageal reflux disease) High cholesterol Hypercalcemia Hyperlipidemia Hypertension nursing home (current) use of insulin Neuropathy Obesity (BMI 30-39.9) Sleep apnea Vitamin D deficiency Family History Father Diabetes Mother No problems noted. Surgical History History of esophagogastroduodenoscopy (EGD) Hx of arthroscopy of knee Hx of arthroscopy of right knee Social History Household Members: Family Housing: Apartment Do you presently have visiting nurse or other home services: Yes Alcohol intake: never Smoking Status: Never smoker Second Hand Smoke Exposure: Yes (HISTORY OF SECOND HAND SMOKE EXPOSURE) Use of substances other than those prescribed or required for medical reasons: No Currently Displaying Signs/Symptoms of Drug Intoxication Withdrawal: No Have you been hit, kicked, punched, or otherwise hurt by someone within the past year? If so, by whom?: No Do you feel safe in your current relationship?: No Current Relationship Is there a partner from a previous relationship who is making you feel unsafe now?: No Are you made to feel afraid or neglected: No [facility] Practices: rastafari Advance Directives: Yes Advance Directives on File: Yes Advance Directives Date on File: 05/05/20 Do you have thoughts of harming others: None Do you have a plan to hurt others: No Plan Recently lost weight without trying: No service: No Current occupational status: disabled Meds Allergies Allergy/AdvReac Type Severity Reaction Status Date / Time cephalexin [From KEFLEX] Allergy Mild ITCHY Verified 07/29/20 18:39 THROAT lisinopril [LISINOPRIL] Allergy Unknown SWELLING Verified 07/29/20 18:39 COUGH Active Medications: Current Medications Generic Name Dose Route Start Last Admin Trade Name Freq PRN Reason Stop Dose Admin Insulin Glargine 60 unit 07/30/20 21:00 Insulin Glargine,Hum.Rec.Anlog 100 Unit/Ml 10 Ml Vial SUBCUT BEDTIME [facility] Insulin Human Lispro 0 unit 07/30/20 07:30 Insulin Lispro 100 Unit/Ml 3 Ml Vial SUBCUT QIDACHS [facility] Protocol Pharmacy Consult 1 each 07/29/20 23:45 Consult Rx Perform Med Rec MISCELLANE ONCE PRN Consult order Senna 17.2 mg 07/29/20 23:45 Sennosides 8.6 Mg Tablet PO BEDTIME PRN Constipation Sodium Chloride 3 ml 07/30/20 00:00 0.9 % Sodium Chloride Flush 3 Ml Syringe IVFLUSH QSHIFT [facility] Home Medications Medication Instructions Recorded Confirmed Last Taken Type atorvastatin 10 mg tablet 10 mg PO DAILY 02/02/20 07/30/20 07/29/20 09:00 History blood sugar diagnostic #10 ea 02/02/20 07/29/20 Unknown History meclizine 25 mg tablet 25 mg PO Q6-8H PRN 02/02/20 07/30/20 07/29/20 09:00 History ondansetron HCl 4 mg tablet 4 mg PO Q6-8H PRN 02/02/20 07/30/20 07/29/20 History triamcinolone acetonide 0.1 % 0.1 applic TOPICAL BID 02/02/20 07/30/20 Unknown History topical cream alcohol swabs 0 pad TOPICAL 07/29/20 07/29/20 Unknown History bupropion HCl 150 mg PO DAILY 07/30/20 07/30/20 07/29/20 09:00 History venlafaxine 1 cap PO DAILY 07/31/20 07/31/20 Unknown History Physical Exam Vital Signs and Narrative: Vital Signs: Last Vital Signs Temp 98.5 F 07/29/20 18:39 Pulse 93 07/29/20 18:39 Resp 18 07/29/20 18:39 BP 148/83 H 07/29/20 18:39 Pulse Ox 98 07/29/20 18:39 Body Mass Index 32.1 Gen: Appears be in no acute distress HEENT: NCAT, Moist mucosa. Icteric sclera Pulmonary: Vesicular breath sounds, fair air entry CVS: Normal S1-S2 Abdomen: BS+, Soft, Nontender Extremities: Warm well perfused Neuro: Alert and awake. Results Labs CBC and Chem 7: 07/31/20 06:10 07/31/20 06:10 Labs: Laboratory Results - last 24 hr 07/29/20 07/29/20 18:50 18:50 MCV 89.3 MCH 29.2 MCHC 32.7 RDW 12.8 Plt Count 322 D MPV 10.7 Immature Gran % (Auto) 1.9 H Neut % (Auto) 70.2 Lymph % (Auto) 18.3 L [place] % (Auto) 7.6 Eos % (Auto) 1.0 Baso % (Auto) 1.0 Lymph # (Auto) 1.5 [place] # (Auto) 0.6 Eos # (Auto) 0.1 Baso # (Auto) 0.1 Abs Immat Gran (auto) 0.16 H Absolute Neuts (auto) 5.9 Absolute Nucleated RBC 0.000 Nucleated RBC % (auto) 0.0 Anion Gap 18 Estim Creat Clear Calc 34.1 Estimated GFR 23 Random Glucose 468 H* Calcium 9.2 Total Bilirubin 2.7 H Direct Bilirubin 1.9 H AST 175 H ALT 563 H Alkaline Phosphatase 671 H Total Protein 7.8 Albumin 4.0 Lipase 105 H Acetaminophen 1 Imaging Radiologist's Impressions: Impressions Abdomen Ultrasound 07/29/20 21:44 IMPRESSION: Mild diffuse mural thickening in the gallbladder is nonspecific and a secondary to incomplete distention. Mild sludge is seen. No pericholecystic fluid. If symptoms persist or worsen, short-term repeat right upper quadrant ultrasound is recommended to assess for change as developing cholecystitis cannot be excluded. Assessment and Plan (1) Transaminitis: Status: Acute 54-year-old male with a past medical history of hypertension, hyperlipidemia, diabetes, CKD presented to the hospital with a chief complaint of jaundice. Transaminitis: Will hold hepatotoxic medications. Avoid home statin. Trend liver enzymes. Gastroenterology was notified. Will obtain hepatitis panel, DORINDA and EBV Ultrasound showed mild diffuse mural thickening of the gallbladder-nonspecific no sludge Patient is afebrile, no leukocytosis, no abdominal pain. Will also obtain HIDA scan. Mild LEDA on CKD: Increase oral fluids. Avoid nephrotoxins. Baseline creatinine around 2.5. We Diabetes: Lantus plus sliding scale. All other chronic conditions, home medications will be continued DVT prophylaxis: SCD boots Code status: Full code
[2020-07-30] VITALS (8 sets, daily range): BP systolic 160–191; BP diastolic 85–103; PULSE 88–111; RESP 16–20; TEMP 36.2–37.1; O2SAT 94–98
--- NOTE | 2020-07-30 00:07 | PC.NURSE ---
At 2240 attempted iv and pt is a difficult iv stick and reported to next rn. .
[2020-07-30 00:16] LABS: INTERNATIONAL NORM RATIO 1.1 (0.9-1.1)
[2020-07-30 00:19] LABS: Partial Thromboplastin Time 35.7 SEC (24.1-38.0)
[2020-07-30 00:21] LABS: COVID-19 Test Negative (Negative); IDNOW Serial# 9DD0AD1C
[2020-07-30 07:08] LABS: MANUAL DIFF FLAG NO
[2020-07-30 07:12] LABS: Basophils Absolute Auto 0.1 X10*3/uL (0.0-0.2); Basophils Percent Auto 1.1 % (0-2); Eosinophils Absolute Auto 0.1 X10*3/uL (0.0-0.4); Eosinophils Percent Auto 1.1 % (0-4); Hematocrit 32.6 % (42-52); Hemoglobin 10.8 g/dl (14.0-18.0); Imm Gran Abs Auto 0.14 X10*3/uL (0.00-0.03); Imm Gran Pct Auto 1.5 % (0.0-0.4); Lymphocytes Absolute Auto 1.4 X10*3/uL (1.2-4.9); Lymphocytes Percent Auto 14.7 % (20-40); Mean Corpuscular HGB Conc 33.1 g/dl (31.0-36.0); Mean Corpuscular Volume 87.4 fL (80-98); Mean Platelet Volume 10.5 fL (9.4-12.4); Monocytes Absolute Auto 0.6 X10*3/uL (0.1-1.2); Monocytes Percent Auto 6.7 % (2-11); Neutrophils Percent Auto 74.9 % (45-73); Platelet Count 312 X10*3/uL (160-400); Red Blood Count 3.73 X10*6/uL (4.60-5.80); Red Cell Distribution Width 12.6 % (11.0-16.0); White Blood Count 9.4 X10*3/uL (4.8-10.8)
[2020-07-30 07:46] LABS: Anion Gap 18 (12-20); Blood Urea Nitrogen 33 mg/dL (9-16); Calcium 9.4 mg/dL (8.4-10.2); Carbon Dioxide 21 mmol/L (22-29); Chloride 99 mmol/L (96-108); Estimated Glomerular Filt Rate 29; Glucose Random 293 mg/dL (60-115); Potassium 4.8 mmol/L (3.3-5.1); Sodium 133 mmol/L (135-145)
[2020-07-30] MEDS: Insulin Lispro 100 UNIT/ML 3 ML VIAL SUBCUT ×4 (08:16→20:55)
[2020-07-30] MEDS: 0.9 % Sodium Chloride Flush 3 ML SYRINGE IVFLUSH ×2 (08:17→17:55)
--- NOTE | 2020-07-30 10:10 | PC.NURSE ---
Tricia from [facility] would like to be called at patient's discharge at the hospital so that they will be able to set up a visiting nurse to go see the patient.
[2020-07-30 11:33] LABS: Glucose, Whole Blood 335 mg/dL (60-115)
[2020-07-30 13:05] LABS: Glucose, Whole Blood 331 mg/dL (60-115)
--- NOTE | 2020-07-30 13:11 | HO.PM.IMPN ---
Subjective Subjective Date of Service: 07/30/20 Interval History: Seen in f/u for jaundice, no abd pain Review of Systems Gen: no fever Resp: no sob, no cough CV: no chest, no DEL CASTILLO, no leg edema GI: No n/v, no abd pain Neuro: No confusion Physical Exam Vital Signs: Vital Signs: Last Vital Signs Temp 98.0 F 07/30/20 05:20 Pulse 100 07/30/20 12:48 Resp 16 07/30/20 12:48 BP 167/95 H 07/30/20 12:48 Pulse Ox 97 07/30/20 12:48 Body Mass Index 32.1 General: AO X 3, no acute distress Sclear icteris Resp: CTA bilateral CVS: S1,S2,RRR GI: +BS, NT, no distention Skin: No rash Neuro: motor grossly intact Psych: appropriate affect Objective Data Current Medications Generic Name Dose Route Start Last Admin Trade Name Freq PRN Reason Stop Dose Admin Insulin Glargine 60 unit 07/30/20 21:00 Insulin Glargine,Hum.Rec.Anlog 100 Unit/Ml 10 Ml Vial SUBCUT BEDTIME [facility] Insulin Human Lispro 0 unit 07/30/20 07:30 07/30/20 12:54 Insulin Lispro 100 Unit/Ml 3 Ml Vial SUBCUT 8 unit QIDACHS [facility] Administration Protocol Pharmacy Consult 1 each 07/29/20 23:45 Consult Rx Perform Med Rec MISCELLANE ONCE PRN Consult order Senna 17.2 mg 07/29/20 23:45 Sennosides 8.6 Mg Tablet PO BEDTIME PRN Constipation Sodium Chloride 3 ml 07/30/20 00:00 07/30/20 08:17 0.9 % Sodium Chloride Flush 3 Ml Syringe IVFLUSH 3 ml QSHIFT [facility] Administration Labs CBC & Chem 7: 07/30/20 06:49 07/30/20 06:49 Assessment and Plan (1) Transaminitis: Status: Acute Assessment and Plan: 54-year-old male with a past medical history of hypertension, hyperlipidemia, diabetes, CKD presented to the hospital with a chief complaint of jaundice. Transaminitis of no etiology Will hold hepatotoxic medications. Avoid home statin. Trend liver enzymes. Gastroenterology was notified. Will obtain hepatitis panel, DORINDA and EBV Ultrasound showed mild diffuse mural thickening of the gallbladder-nonspecific no sludge Patient is afebrile, no leukocytosis, no abdominal pain. HIDA Mild LEDA on CKD: Cr is stable Diabetes: Lantus plus sliding scale. All other chronic conditions, home medications will be continued DVT prophylaxis: SCD boots Code status: Full code
--- NOTE | 2020-07-30 16:28 | P.EN_ITS ---
Event Note Date of Service: 07/30/20 Event Note: GI Consult-Full note dictated Imp: New onset elevated LFT's with mild jaundice of unclear etiology. He had normal LFT's in 05/2020 and denies any previous history of liver disease in himself nor family members, other than a daughter with fatty liver . He denies EtOH and drugs. He is on a statin, but reports that is not new, ie: > 6 months. He does not show any signs of liver failure. His history and imaging studies do not suggest biliary obstruction, chronic liver disease, nor any definitive cholecystitis. His abdominal exam is benign. He doesn't use any chronic OTC meds. Based on the increase in the LFT's over the past 10 days this seems to be something acute . Rec: Check viral serologies and auotimmune markers as you are doing, F/U labs today and tomorrow, hold statin and all other hepatotoxic drugs. We may need to check a HCV viral load if the Hep C antibody is negative so as to R/O acute Hepatitis C infection. We may need to check a MRCP if things worsen re: TBili and LFT's. Try to get history as to when he started other medications on his lis t like the prucalopride and the linagliptin to see if those would correlate with the acute hepatitis, as he can't really give me any history in that regard. Can continue diet as tolerated. D/W patient. Thanks
[2020-07-30 17:55] LABS: Glucose, Whole Blood 302 mg/dL (60-115)
[2020-07-30 18:33] LABS: Alanine Aminotransferase 430 U/L (0-40); Alkaline Phosphatase 644 U/L (39-117); Aspartate Amino Transferase 104 U/L (5-37); Bilirubin Direct 1.6 mg/dL (0.0-0.5); Bilirubin Total 2.4 mg/dL (0.0-1.0); Total Protein 7.5 g/dL (6.5-8.0)
[2020-07-30 20:41] LABS: Glucose, Whole Blood 265 mg/dL (60-115)
[2020-07-30] MEDS: traZODone HCL 50 MG TABLET 150 MG PO (20:54)
[2020-07-30] MEDS: clonazePAM 0.5 MG TABLET PO (20:54)
[2020-07-30] MEDS: Famotidine 20 MG TABLET PO (20:54)
[2020-07-30] MEDS: Metoclopramide HCl 5 MG TABLET PO (20:54)
[2020-07-30] MEDS: Insulin Glargine,Hum.rec.anlog 100 UNIT/ML 10 ML VIAL 60 UNIT SUBCUT (20:55)
[2020-07-31] MEDS: 0.9 % Sodium Chloride Flush 3 ML SYRINGE IVFLUSH ×4 (02:33→20:46)
[2020-07-31 03:53] VITALS: PULSE 92; RESP 20; TEMP 36.7; O2SAT 98
[2020-07-31 06:31] LABS: MANUAL DIFF FLAG NO
[2020-07-31 06:55] LABS: Basophils Absolute Auto 0.1 X10*3/uL (0.0-0.2); Basophils Percent Auto 0.8 % (0-2); Eosinophils Absolute Auto 0.1 X10*3/uL (0.0-0.4); Eosinophils Percent Auto 1.2 % (0-4); Hematocrit 34.9 % (42-52); Hemoglobin 11.4 g/dl (14.0-18.0); Lymphocytes Absolute Auto 1.9 X10*3/uL (1.2-4.9); Lymphocytes Percent Auto 18.2 % (20-40); Mean Corpuscular HGB Conc 32.7 g/dl (31.0-36.0); Mean Corpuscular Hemoglobin 28.9 pg (27.0-33.0); Mean Corpuscular Volume 88.6 fL (80-98); Mean Platelet Volume 10.6 fL (9.4-12.4); Monocytes Absolute Auto 0.8 X10*3/uL (0.1-1.2); Monocytes Percent Auto 7.6 % (2-11); Neutrophils Absolute Auto 7.4 X10*3/uL (2.0-8.3); Neutrophils Percent Auto 71.2 % (45-73); Platelet Count 340 X10*3/uL (160-400); Red Blood Count 3.94 X10*6/uL (4.60-5.80); Red Cell Distribution Width 12.8 % (11.0-16.0); White Blood Count 10.4 X10*3/uL (4.8-10.8)
[2020-07-31 07:02] LABS: INTERNATIONAL NORM RATIO 1.1 (0.9-1.1); Prothrombin Time 13.1 SEC (10.8-13.0)
[2020-07-31 07:06] LABS: Alanine Aminotransferase 394 U/L (0-40); Alkaline Phosphatase 628 U/L (39-117); Anion Gap 15 (12-20); Aspartate Amino Transferase 111 U/L (5-37); Bilirubin Direct 1.4 mg/dL (0.0-0.5); Bilirubin Total 2.2 mg/dL (0.0-1.0); Blood Urea Nitrogen 34 mg/dL (9-16); Calcium 9.9 mg/dL (8.4-10.2); Carbon Dioxide 24 mmol/L (22-29); Chloride 101 mmol/L (96-108); Creatinine Clr Calc Pharmacy 45.7; Estimated Glomerular Filt Rate 32; Glucose Fasting 188 mg/dL (60-99); Potassium 4.6 mmol/L (3.3-5.1); Sodium 135 mmol/L (135-145); Total Protein 7.6 g/dL (6.5-8.0)
[2020-07-31 07:19] VITALS: BP 161/100; PULSE 113; RESP 18; TEMP 36.4; O2SAT 96
[2020-07-31 08:06] LABS: Glucose, Whole Blood 219 mg/dL (60-115)
[2020-07-31] MEDS: clonazePAM 0.5 MG TABLET PO ×3 (08:34→20:45)
[2020-07-31] MEDS: Insulin Lispro 100 UNIT/ML 3 ML VIAL SUBCUT ×4 (08:34→20:45)
[2020-07-31] MEDS: Famotidine 20 MG TABLET PO ×2 (08:34→20:45)
[2020-07-31] MEDS: Metoclopramide HCl 5 MG TABLET PO ×4 (08:34→20:45)
[2020-07-31] MEDS: hydroCHLOROthiazide 25 MG TABLET PO (08:34)
--- NOTE | 2020-07-31 09:08 | MHC.CM.PN ---
Lives at home w/sister. Lives in first floor apartment w/a few steps to enter. Owns a cane that he uses. Has [facility] nurse that comes in to help him w/his medications. Is interested in having in-home PT through [facility] to help him w/his bad/stiff knees as the steps to enter the apartment can be challenging and he would like help w/exercising his legs safely. Plan is back home w/[facility] nursing services (and potentially [facility] PT services) when ready. He states he will call for his own ride when he is ready.
--- NOTE | 2020-07-31 10:20 | HO.PM.IMPN ---
Subjective Subjective Date of Service: 07/31/20 Interval History: Seen in f/u for jaundice, no abd pain--LFTs remain high Review of Systems Gen: no fever Resp: no sob, no cough CV: no chest, no DEL CASTILLO, no leg edema GI: No n/v, no abd pain Neuro: No confusion Physical Exam Vital Signs: Vital Signs: Last Vital Signs Temp 97.6 F 07/31/20 07:19 Pulse 113 H 07/31/20 07:19 Resp 18 07/31/20 07:19 BP 161/100 H 07/31/20 07:19 Pulse Ox 96 07/31/20 07:19 Body Mass Index 32.1 Const: Other: General: AO X 3, no acute distress HEENT sclera icteris Resp: CTA bilateral CVS: S1,S2,RRR GI: +BS, NT, no distention Skin: No rash Neuro: motor grossly intact Psych: appropriate affect Objective Data Current Medications Generic Name Dose Route Start Last Admin Trade Name Freq PRN Reason Stop Dose Admin Clonazepam 0.5 mg 07/30/20 21:00 07/31/20 08:34 Clonazepam 0.5 Mg Tablet PO 0.5 mg TID RADHA Administration Famotidine 20 mg 07/30/20 21:00 07/31/20 08:34 Famotidine 20 Mg Tablet PO 20 mg BID RAD[facility] Administration Hydralazine HCl 10 mg 07/30/20 19:02 Hydralazine Hcl 10 Mg Tablet PO Q6H PRN >sbP>180 Protocol Hydrochlorothiazide 25 mg 07/31/20 09:00 07/31/20 08:34 Hydrochlorothiazide 25 Mg Tablet PO 25 mg DAILY [facility] Administration Protocol Insulin Glargine 60 unit 07/30/20 21:00 07/30/20 20:55 Insulin Glargine,Hum.Rec.Anlog 100 Unit/Ml 10 Ml Vial SUBCUT 60 unit BEDTIME [facility] Administration Insulin Human Lispro 0 unit 07/30/20 07:30 07/31/20 08:34 Insulin Lispro 100 Unit/Ml 3 Ml Vial SUBCUT 2 unit QIDACHS [facility] Administration Protocol Meclizine HCl 25 mg 07/30/20 19:00 Meclizine Hcl 25 Mg Tablet PO Q8H PRN Dizziness Metoclopramide HCl 5 mg 07/30/20 21:00 07/31/20 08:34 Metoclopramide Hcl 5 Mg Tablet PO 5 mg QID [facility] Administration Pharmacy Consult 1 each 07/29/20 23:45 Consult Rx Perform Med Rec MISCELLANE ONCE PRN Consult order Senna 17.2 mg 07/29/20 23:45 Sennosides 8.6 Mg Tablet PO BEDTIME PRN Constipation Sodium Chloride 3 ml 07/30/20 00:00 07/31/20 08:36 0.9 % Sodium Chloride Flush 3 Ml Syringe IVFLUSH 3 ml QSHIFT [facility] Administration Tizanidine HCl 2 mg 07/30/20 19:22 Tizanidine Hcl 4 Mg Tablet PO Q8H PRN headach Trazodone HCl 150 mg 07/30/20 21:00 07/30/20 20:54 Trazodone Hcl 50 Mg Tablet PO 150 mg BEDTIME [facility] Administration Venlafaxine HCl 300 mg 07/30/20 19:00 Venlafaxine Hcl Er 75 Mg Cap.Er.24h PO QAM [facility] Labs CBC & Chem 7: 07/31/20 06:10 07/31/20 06:10 Assessment and Plan (1) Transaminitis: Status: Acute Assessment and Plan: 54-year-old male with a past medical history of hypertension, hyperlipidemia, diabetes, CKD presented to the hospital with a chief complaint of jaundice. Transaminitis of no etiology without over liver failure Will hold hepatotoxic medications. Avoid home statin. Trend liver enzymes. Gastroenterology was notified. Hepatitis serology, DORINDA, autoimmune serology pending Ultrasound showed mild diffuse mural thickening of the gallbladder-nonspecific no sludge Patient is afebrile, no leukocytosis, no abdominal pain. Will check with GI about next step, check labs in the morning Mild LEDA on CKD: Cr is stable Diabetes: Lantus plus sliding scale. All other chronic conditions, home medications will be continued DVT prophylaxis: SCD boots Code status: Full code
[2020-07-31 11:25] VITALS: BP 168/109; PULSE 90; RESP 18; TEMP 36.4; O2SAT 96
[2020-07-31 12:00] LABS: Glucose, Whole Blood 281 mg/dL (60-115)
[2020-07-31 15:45] VITALS: BP 159/100; PULSE 100; RESP 12; TEMP 36.7; O2SAT 95
[2020-07-31 16:33] LABS: Glucose, Whole Blood 337 mg/dL (60-115)
--- NOTE | 2020-07-31 17:56 | PM.GIPN ---
Subjective Subjective Date of Service: 08/01/20 Interval History: Feels well, eating comfortably, denies abdominal pain other than very mild and brief episodes of RUQ discomfort. Denies N/V. Physical Exam Vital Signs: Vital Signs: Last Vital Signs Temp 98.0 F 07/31/20 15:45 Pulse 100 07/31/20 15:45 Resp 12 07/31/20 15:45 BP 159/100 H 07/31/20 15:45 Pulse Ox 95 07/31/20 15:45 Body Mass Index 32.1 Const: General: cooperative, healthy appearing, comfortable, no acute distress, well developed, alert and awake Eyes: Sclerae: sclerae normal GI: Other: Nontender, no mass, no guarding. Inspection: Yes normal to inspection Percussion: Yes normal to percussion Auscultation: normal bowel sounds Objective Data Labs CBC & Chem 7: 07/31/20 06:10 07/31/20 06:10 Labs: Laboratory Results - last 24 hr 07/30/20 07/30/20 07/31/20 17:45 20:27 06:10 WBC 10.4 RBC 3.94 L Hgb 11.4 L Hct 34.9 L MCV 88.6 MCH 28.9 MCHC 32.7 RDW 12.8 Plt Count 340 MPV 10.6 Immature Gran % (Auto) 1.0 H Neut % (Auto) 71.2 Lymph % (Auto) 18.2 L [place] % (Auto) 7.6 Eos % (Auto) 1.2 Baso % (Auto) 0.8 Lymph # (Auto) 1.9 [place] # (Auto) 0.8 Eos # (Auto) 0.1 Baso # (Auto) 0.1 Abs Immat Gran (auto) 0.10 H Absolute Neuts (auto) 7.4 Absolute Nucleated RBC 0.000 Nucleated RBC % (auto) 0.0 PT INR Sodium Potassium Chloride Carbon Dioxide Anion Gap BUN Creatinine Estim Creat Clear Calc Estimated GFR POC Glucose 265 H Fasting Glucose Calcium Total Bilirubin 2.4 H Direct Bilirubin 1.6 H AST 104 H ALT 430 H Alkaline Phosphatase 644 H Total Protein 7.5 Albumin 4.0 07/31/20 07/31/20 07/31/20 06:10 06:10 07:18 WBC RBC Hgb Hct MCV MCH MCHC RDW Plt Count MPV Immature Gran % (Auto) Neut % (Auto) Lymph % (Auto) [place] % (Auto) Eos % (Auto) Baso % (Auto) Lymph # (Auto) [place] # (Auto) Eos # (Auto) Baso # (Auto) Abs Immat Gran (auto) Absolute Neuts (auto) Absolute Nucleated RBC Nucleated RBC % (auto) PT 13.1 H INR 1.1 Sodium 135 Potassium 4.6 Chloride 101 Carbon Dioxide 24 Anion Gap 15 BUN 34 H Creatinine 2.14 H Estim Creat Clear Calc 45.7 Estimated GFR 32 POC Glucose 219 H Fasting Glucose 188 H Calcium 9.9 Total Bilirubin 2.2 H Direct Bilirubin 1.4 H AST 111 H ALT 394 H Alkaline Phosphatase 628 H Total Protein 7.6 Albumin 4.0 07/31/20 07/31/20 11:24 16:25 WBC RBC Hgb Hct MCV MCH MCHC RDW Plt Count MPV Immature Gran % (Auto) Neut % (Auto) Lymph % (Auto) [place] % (Auto) Eos % (Auto) Baso % (Auto) Lymph # (Auto) [place] # (Auto) Eos # (Auto) Baso # (Auto) Abs Immat Gran (auto) Absolute Neuts (auto) Absolute Nucleated RBC Nucleated RBC % (auto) PT INR Sodium Potassium Chloride Carbon Dioxide Anion Gap BUN Creatinine Estim Creat Clear Calc Estimated GFR POC Glucose 281 H 337 H Fasting Glucose Calcium Total Bilirubin Direct Bilirubin AST ALT Alkaline Phosphatase Total Protein Albumin Progress Note: A&P Assessment and plan (1) Abnormal LFTs (liver function tests): Problem details: Imp: He remains essentially asymptomatic regarding the abnormal LFT's and his abdominal exam is benign. I don't think he is having a gallbladder related problem. This is most likely medication-related. The LFT's are slowly coming down. Rec: F/U labs in AM. Continue to hold all potential hepatotoxic drugs. Check results of viral serologies and DORINDA. Will check MRCP to further assess and more definitively rule out GB and/or biliary process. If the MRCP is nonrevealing and the LFT's are stable, he could probably be discharged later in the day on 08/01 and then have soon F/U with Lindsey Saleh NP at [facility]. He will need to stay off his statin. D/W patient in detail and he is comfortable with this plan. Thanks Status: Acute Fall Risk Details Current Medications: Current Medications Generic Name Dose Route Start Last Admin Trade Name Kashmirq PRN Reason Stop Dose Admin Clonazepam 0.5 mg 07/30/20 21:00 07/31/20 15:53 Clonazepam 0.5 Mg Tablet PO 0.5 mg TID RADHA Administration Famotidine 20 mg 07/30/20 21:00 07/31/20 08:34 Famotidine 20 Mg Tablet PO 20 mg BID RADHA Administration Hydralazine HCl 10 mg 07/30/20 19:02 Hydralazine Hcl 10 Mg Tablet PO Q6H PRN >sbP>180 Protocol Hydrochlorothiazide 25 mg 07/31/20 09:00 07/31/20 08:34 Hydrochlorothiazide 25 Mg Tablet PO 25 mg DAILY [facility] Administration Protocol Insulin Glargine 60 unit 07/30/20 21:00 07/30/20 20:55 Insulin Glargine,Hum.Rec.Anlog 100 Unit/Ml 10 Ml Vial SUBCUT 60 unit BEDTIME [facility] Administration Insulin Human Lispro 0 unit 07/30/20 07:30 07/31/20 16:35 Insulin Lispro 100 Unit/Ml 3 Ml Vial SUBCUT 8 unit QIDACHS [facility] Administration Protocol Meclizine HCl 25 mg 07/30/20 19:00 Meclizine Hcl 25 Mg Tablet PO Q8H PRN Dizziness Metoclopramide HCl 5 mg 07/30/20 21:00 07/31/20 16:36 Metoclopramide Hcl 5 Mg Tablet PO 5 mg QID RAD[facility] Administration Pharmacy Consult 1 each 07/29/20 23:45 Consult Rx Perform Med Rec MISCELLANE ONCE PRN Consult order Senna 17.2 mg 07/29/20 23:45 Sennosides 8.6 Mg Tablet PO BEDTIME PRN Constipation Sodium Chloride 3 ml 07/30/20 00:00 07/31/20 15:53 0.9 % Sodium Chloride Flush 3 Ml Syringe IVFLUSH 3 ml QSHIFT RAD[facility] Administration Tizanidine HCl 2 mg 07/30/20 19:22 Tizanidine Hcl 4 Mg Tablet PO Q8H PRN headach Trazodone HCl 150 mg 07/30/20 21:00 07/30/20 20:54 Trazodone Hcl 50 Mg Tablet PO 150 mg BEDTIME RADHA Administration Venlafaxine HCl 300 mg 07/30/20 19:00 Venlafaxine Hcl Er 75 Mg Cap.Er.24h PO QAM [facility] Time Spent With Patient Time: Total time spent is greater than 50% in coordination of care (as documented) at patient's floor/unit and/or counseling patient: Time with patient: 15 - 24 minutes
[2020-07-31 19:22] VITALS: BP 166/94; PULSE 94; RESP 20; TEMP 36.1; O2SAT 97
[2020-07-31 20:16] LABS: Glucose, Whole Blood 228 mg/dL (60-115)
[2020-07-31] MEDS: Insulin Glargine,Hum.rec.anlog 100 UNIT/ML 10 ML VIAL 60 UNIT SUBCUT (20:45)
[2020-07-31] MEDS: traZODone HCL 50 MG TABLET 150 MG PO (20:45)
[2020-08-01] VITALS: BP 190/103; PULSE 100; RESP 20; TEMP 36.4; O2SAT 100
[2020-08-01 00:38] VITALS: BP 142/92
[2020-08-01 03:48] VITALS: BP 144/91; PULSE 99; RESP 18; TEMP 36.9; O2SAT 98
[2020-08-01 03:54] LABS: HBS Num1 0.04 mIU/mL (0-7.99); HBc Num1 0.06 S/CO (0.00-0.79); Hepatitis B Core Antibody Nonreactive (Nonreactive); ~Hepatitis B Surface Antibody NONREACTIVE (Nonreactive)
[2020-08-01 04:01] LABS: HBsAGNum1 0.13 S/CO (0.00-0.99); Hepatitis B Surface Antigen Negative (Negative); ~HepC Num1 0.07 S/CO (0.00-0.79); ~Hepatitis C Antibody Nonreactive (Nonreactive)
[2020-08-01 06:22] LABS: Alanine Aminotransferase 305 U/L (0-40); Albumin Level 3.9 g/dL (3.5-5.0); Alkaline Phosphatase 601 U/L (39-117); Aspartate Amino Transferase 75 U/L (5-37); Bilirubin Direct 1.3 mg/dL (0.0-0.5); Bilirubin Total 1.9 mg/dL (0.0-1.0); Total Protein 7.4 g/dL (6.5-8.0)
[2020-08-01 07:16] LABS: Glucose, Whole Blood 240 mg/dL (60-115)
[2020-08-01 07:41] VITALS: BP 146/94; PULSE 111; RESP 20; TEMP 36.7; O2SAT 99
[2020-08-01] MEDS: Metoclopramide HCl 5 MG TABLET PO ×2 (09:34→11:59)
[2020-08-01] MEDS: hydroCHLOROthiazide 25 MG TABLET PO (09:34)
[2020-08-01] MEDS: 0.9 % Sodium Chloride Flush 3 ML SYRINGE IVFLUSH (09:34)
[2020-08-01] MEDS: Famotidine 20 MG TABLET PO (09:34)
[2020-08-01] MEDS: clonazePAM 0.5 MG TABLET PO ×2 (09:34→14:55)
[2020-08-01] MEDS: Insulin Lispro 100 UNIT/ML 3 ML VIAL SUBCUT ×2 (09:37→11:59)
--- NOTE | 2020-08-01 10:01 | HO.PM.IMPN ---
Subjective Subjective Date of Service: 08/01/20 Interval History: seen in follow-up for elevated LFTs of unclear etiology. He has no abdominal pain. LFTs are trending down in the right direction. His going for MRCP this morning. Review of Systems Gen: no fever Resp: no sob, no cough CV: no chest, no DEL CASTILLO, no leg edema GI: No n/v, no abd pain Neuro: No confusion Physical Exam Vital Signs: Vital Signs: Last Vital Signs Temp 98.1 F 08/01/20 07:41 Pulse 111 H 08/01/20 07:41 Resp 20 08/01/20 07:41 BP 146/94 H 08/01/20 07:41 Pulse Ox 99 08/01/20 07:41 Body Mass Index 32.1 Const: Other: General: AO X 3, no acute distress HEENT sclera icteris Resp: CTA bilateral CVS: S1,S2,RRR GI: +BS, NT, no distention Skin: No rash Neuro: motor grossly intact Psych: appropriate affect Objective Data Current Medications Generic Name Dose Route Start Last Admin Trade Name Freq PRN Reason Stop Dose Admin Clonazepam 0.5 mg 07/30/20 21:00 08/01/20 09:34 Clonazepam 0.5 Mg Tablet PO 0.5 mg TID RADHA Administration Famotidine 20 mg 07/30/20 21:00 08/01/20 09:34 Famotidine 20 Mg Tablet PO 20 mg BID RADHA Administration Hydralazine HCl 10 mg 07/30/20 19:02 Hydralazine Hcl 10 Mg Tablet PO Q6H PRN >sbP>180 Protocol Hydrochlorothiazide 25 mg 07/31/20 09:00 08/01/20 09:34 Hydrochlorothiazide 25 Mg Tablet PO 25 mg DAILY RADHA Administration Protocol Insulin Glargine 60 unit 07/30/20 21:00 07/31/20 20:45 Insulin Glargine,Hum.Rec.Anlog 100 Unit/Ml 10 Ml Vial SUBCUT 60 unit BEDTIME RADHA Administration Insulin Human Lispro 0 unit 07/30/20 07:30 08/01/20 09:37 Insulin Lispro 100 Unit/Ml 3 Ml Vial SUBCUT 4 unit QIDACHS RADHA Administration Protocol Meclizine HCl 25 mg 07/30/20 19:00 Meclizine Hcl 25 Mg Tablet PO Q8H PRN Dizziness Metoclopramide HCl 5 mg 07/30/20 21:00 08/01/20 09:34 Metoclopramide Hcl 5 Mg Tablet PO 5 mg QID RADHA Administration Pharmacy Consult 1 each 07/29/20 23:45 Consult Rx Perform Med Rec MISCELLANE ONCE PRN Consult order Senna 17.2 mg 07/29/20 23:45 Sennosides 8.6 Mg Tablet PO BEDTIME PRN Constipation Sodium Chloride 3 ml 07/30/20 00:00 08/01/20 09:34 0.9 % Sodium Chloride Flush 3 Ml Syringe IVFLUSH 3 ml QSHIFT [facility] Administration Tizanidine HCl 2 mg 07/30/20 19:22 Tizanidine Hcl 4 Mg Tablet PO Q8H PRN headach Trazodone HCl 150 mg 07/30/20 21:00 07/31/20 20:45 Trazodone Hcl 50 Mg Tablet PO 150 mg BEDTIME RADHA Administration Venlafaxine HCl 300 mg 07/30/20 19:00 Venlafaxine Hcl Er 75 Mg Cap.Er.24h PO QAM [facility] Labs CBC & Chem 7: 07/31/20 06:10 08/01/20 05:18 Assessment and Plan (1) Transaminitis: Status: Acute Assessment and Plan: 54-year-old male with a past medical history of hypertension, hyperlipidemia, diabetes, CKD presented to the hospital with a chief complaint of jaundice. Transaminitis of no etiology without over liver failure Will hold hepatotoxic medications. Avoid home statin. Trend liver enzymes. GI recommendation noted. to have MRCP today and if unrevealing then discharge and outpatient followup Hepatitis B C negative. DORINDA, autoimmune serology pending Ultrasound showed mild diffuse mural thickening of the gallbladder-nonspecific no sludge Patient is afebrile, no leukocytosis, no abdominal pain. Mild LEDA on CKD: Cr is stable Diabetes: Lantus plus sliding scale. All other chronic conditions, home medications will be continued DVT prophylaxis: SCD boots Code status: Full code
[2020-08-01 10:58] LABS: Anion Gap 16 (12-20); Blood Urea Nitrogen 37 mg/dL (9-16); Carbon Dioxide 24 mmol/L (22-29); Chloride 100 mmol/L (96-108); Creatinine Clr Calc Pharmacy 42.9; Estimated Glomerular Filt Rate 30; Glucose Random 250 mg/dL (60-115); Potassium 4.6 mmol/L (3.3-5.1); Sodium 135 mmol/L (135-145)
[2020-08-01 11:20] LABS: Glucose, Whole Blood 315 mg/dL (60-115)
[2020-08-01 12:00] VITALS: BP 177/92; PULSE 84; RESP 20; TEMP 35.9; O2SAT 100
--- NOTE | 2020-08-01 12:21 | PM.DS ---
DS: Providers Provider Date of Service: 08/02/20 Date of admission: 07/29/20 23:45 Primary care physician: Sarthak Spencer MD Consults: 07/29/20 23:45 Consult to Gastroenterology Routine Consulting Provider: Adonis Reardon Reason for consultation: Elevated liver Enzymes DS: Diagnosis Discharge Diagnosis (1) Transaminitis: Status: Acute DS: Medications Discharge Medications Home Medications: Home Medications Medication Instructions Recorded Confirmed blood sugar diagnostic #10 ea 02/02/20 07/29/20 meclizine 25 mg tablet 25 mg PO Q6-8H PRN 02/02/20 07/30/20 ondansetron HCl 4 mg tablet 4 mg PO Q6-8H PRN 02/02/20 07/30/20 triamcinolone acetonide 0.1 % 0.1 applic TOPICAL BID 02/02/20 07/30/20 topical cream alcohol swabs 0 pad TOPICAL 07/29/20 07/29/20 bupropion HCl 150 mg PO DAILY 07/30/20 07/30/20 venlafaxine 1 cap PO DAILY 07/31/20 07/31/20 Previous Rx's Medication Instructions Recorded clonazepam 0.5 mg PO TID #90 tab 02/26/20 cholecalciferol (vitamin D3) 50 50 mcg PO DAILY #30 cap 03/04/20 mcg (2,000 unit) capsule losartan 50 mg tablet 50 mg PO DAILY #90 tab 03/22/20 famotidine 20 mg tablet 20 mg PO BID #180 tab 03/23/20 trazodone 150 mg tablet 150 mg PO BEDTIME #90 tab 03/23/20 tizanidine 4 mg capsule 4 mg PO Q8H PRN #60 cap 04/29/20 labetalol 100 mg PO BID #60 tab 05/07/20 pen needle, diabetic 32 gauge x #400 ea 05/11/20 amlodipine 10 mg tablet 10 mg PO DAILY #30 tab 06/08/20 lancets 28 gauge #150 ea 06/17/20 simethicone 180 mg capsule 180 mg PO TID 30 Days #90 cap 06/24/20 hydrochlorothiazide 25 mg tablet 25 mg PO DAILY #90 tab 07/13/20 prucalopride 2 mg tablet 2 mg PO DAILY 30 Days #30 tab 07/15/20 furosemide [Lasix] 20 mg PO QAM #20 tab 07/21/20 polyethylene glycol 3350 [Miralax] 17 g PO DAILY #510 g 07/21/20 metoclopramide HCl 5 mg tablet 5 mg PO QID 30 Days #120 tab 07/25/20 insulin aspart U-100 100 unit/mL See Rx Instructions SUBCUT TID 30 07/29/20 (3 mL) subcutaneous pen Days #30 ml insulin glargine U-300 conc 300 80 unit SUBCUT DAILY 30 Days #9 ml 07/29/20 unit/mL (3 mL) subcutaneous pen linagliptin 5 mg tablet 5 mg PO DAILY 30 Days #30 tab 07/29/20 DS: Summary Hospital Course Hospital Course: 54-year-old male with a past medical history of hypertension, hyperlipidemia, diabetes, CKD, neuropathy, obesity, anxiety presented to the hospital with a chief complaint of icterus. Patient mentions that he went to his doctor's office for routine visit where he was noted to have icterus and and had routine labs done which noted to have elevated liver enzymes, patient was asked to go to the ER for further evaluation. Patient denies any abdominal pain chest pain palpitations lightheadedness dizziness. Denies any eating out in restaurants; denies any nausea vomiting diarrhea. Denies any alcohol or illicit drug use. Denies fever chills cough. Review of all other systems is negative except mentioned above Patient denies taking except Tylenol. A ER course: Per ER team patient noted to have elevated liver enzymes, T bili of 2.7, mild, sodium of 129; normal saline. Patient was hyperglycemic on presentation and given Humalog insulin. ER team spoke to Dr. reardon from Gastroenterology who suggested admission to the medicine team and will be evaluated in the morning Hospital course:. Essentially patient presented with transaminitis with a jaundice the etiology of which is not clear. AST was 126 prior to that had been normal in May. At this went up to 175 on July 29 and has steadily come down to 75 as of today. ALT was 96 on July 20 went up to 579 on July 29 and has steadily been trending down about 305 today which is doses lower done the previous day 394. He had normal alk-phos level in May of this year at 97 and this has peaked 671 are now July 29 and a sed trending down presently a 600 on 1. Total bilirubin was 1 point feet 1 6 on July 20 and the peaked abduct 2.8 on July 29 of presently 1.9. He had a CT scan of the abdomen and pelvis and ultrasound of the abdomen both of which did not reveal any stone some sludge in the gallbladder and no evidence of acute cholecystitis. Patient was evaluated by Dr. Reardon from a GI. Recommended that time Lipitor be discontinue and hip are toxin be avoided. He ultimately had MRCP on August 01 and this also does not reveal any hip RO biliary obstruction and given LFTs are trending down at this point he will be discharged home and to follow up with his GI provider Lindsey Saleh. Of note he had a hepatitis serology which are negative for hepatitis-B and C, immunological studies include a Na performed and these are pending. He will be going home and is instructed not to take Lipitor anymore and also to avoid all form hepatic toxin and to talk to his primary care doctor before taking any new medications. He has no abdominal pain and is tolerating regular diet. Time Spent with Patient Time attestation: Total time spent providing and/or coordinating discharge services: Discharge coordination time: Greater than 30 minutes Physical Exam Vital Signs: Vital Signs: Last Vital Signs Temp 98.1 F 08/01/20 07:41 Pulse 111 H 08/01/20 07:41 Resp 20 08/01/20 07:41 BP 146/94 H 08/01/20 07:41 Pulse Ox 99 08/01/20 07:41 Body Mass Index 32.1 See progress note from today. DS: Data Data Completed and Pending Labs on day of discharge: Laboratory Results - last 24 hr 07/29/20 07/31/20 07/31/20 23:51 16:25 19:58 Sodium Potassium Chloride Carbon Dioxide Anion Gap BUN Creatinine Estim Creat Clear Calc Estimated GFR POC Glucose 337 H 228 H Random Glucose Calcium Total Bilirubin Direct Bilirubin AST ALT Alkaline Phosphatase Total Protein Albumin Hep Bs Antigen Negative Hep Bs Antibody NONREACTIVE Hep B Core Total Ab Nonreactive Hepatitis C Ab (EIA) Nonreactive 08/01/20 08/01/20 08/01/20 05:18 07:11 11:12 Sodium 135 Potassium 4.6 Chloride 100 Carbon Dioxide 24 Anion Gap 16 BUN 37 H Creatinine 2.28 H Estim Creat Clear Calc 42.9 Estimated GFR 30 POC Glucose 240 H 315 H Random Glucose 250 H Calcium 10.0 Total Bilirubin 1.9 H Direct Bilirubin 1.3 H AST 75 H ALT 305 H Alkaline Phosphatase 601 H Total Protein 7.4 Albumin 3.9 Hep Bs Antigen Hep Bs Antibody Hep B Core Total Ab Hepatitis C Ab (EIA) Discharge Plan Discharge Anticipated Discharge Date/Time: 08/01/20 11:57 Patient Disposition: Home Health Service Discharge Diagnosis: Transaminitis Referrals: [facility] [Other] - 1 Day ([id number] HOME WITH REASUMPTION OF HIS SERVICES WITH [facility] PCP DR SARTHAK MIRANDA PATIENT INSTRUCTED TO CALL FOR POST HOSPITAL DISCHARGE FOLLOW UP TRANSPORTATION FAMILY PER PATIENT) Lindsey Saleh, [facility] [Nurse Practitioner] - 1 Week (Elevated LFTs) Sarthak Spencer MD [Primary Care Provider] - 1 Week Discharge Medications: Continued cholecalciferol (vitamin D3) [D3-2000] 50 mcg (2,000 unit) capsule 50 mcg PO DAILY Qty: 30 RF: 6 losartan 50 mg tablet 50 mg PO DAILY Qty: 90 RF: 8 famotidine 20 mg tablet 20 mg PO BID Qty: 180 RF: 8 trazodone 150 mg tablet 150 mg PO BEDTIME Qty: 90 RF: 8 (DME) pen needle, diabetic [BD Kacey 2nd Gen Pen Needle] 32 gauge x 5/32 needle See Rx Instructions .MEDSUPPLY Qty: 400 RF: 4 amlodipine [Norvasc] 10 mg tablet 10 mg PO DAILY Qty: 30 RF: 8 (DME) lancets [FreeStyle Lancets] 28 gauge misc See Rx Instructions .MEDSUPPLY Qty: 150 RF: 5 hydrochlorothiazide 25 mg tablet 25 mg PO DAILY Qty: 90 RF: 8 Motegrity 2 mg tablet 2 mg PO DAILY 30 Days Qty: 30 RF: 2 clonazepam 1 mg tablet 0.5 mg PO TID Qty: 90 RF: 4 labetalol 100 mg Tablet 100 mg PO BID Qty: 60 RF: 0 bupropion HCl 150 mg tablet extended release 24 hr 150 mg PO DAILY RF: 0 venlafaxine 150 mg capsule,extended release 24hr 1 cap PO DAILY RF: 0 polyethylene glycol 3350 [Miralax] 17 gram/dose powder 17 g PO DAILY Qty: 510 RF: 0 furosemide [Lasix] 20 mg tablet 20 mg PO QAM Qty: 20 RF: 0 tizanidine 4 mg capsule 4 mg PO Q8H PRN (Reason: headach) Qty: 60 RF: 5 simethicone 180 mg capsule 180 mg PO TID 30 Days Qty: 90 RF: 3 metoclopramide HCl 5 mg tablet 5 mg PO QID 30 Days Qty: 120 RF: 6 meclizine 25 mg tablet 25 mg PO Q6-8H PRN (Reason: Dizziness) RF: 0 ondansetron HCl 4 mg tablet 4 mg PO Q6-8H PRN (Reason: Nausea) RF: 0 (DME) blood sugar diagnostic Strip See Rx Instructions ea Not Applicable .MEDSUPPLY Qty: 10 RF: 0 triamcinolone acetonide 0.1 % cream 0.1 applic topical BID RF: 0 alcohol swabs Pads, Medicated 0 pad topical DIRECTED RF: 0 Toujeo Max U-300 SoloStar 300 unit/mL (3 mL) insulin pen 80 unit subcut DAILY 30 Days Qty: 9 RF: 8 insulin aspart U-100 [Novolog Flexpen U-100 Insulin] 100 unit/mL (3 mL) insulin pen See Rx Instructions subcut TID 30 Days Qty: 30 RF: 9 Tradjenta 5 mg tablet 5 mg PO DAILY 30 Days Qty: 30 RF: 8 Discontinued dexamethasone 6 mg tablet 6 mg PO DAILY Qty: 7 RF: 0 atorvastatin 10 mg tablet 10 mg PO DAILY RF: 0 Discharge Orders: Discharge Order (Routine); Ordered 08/01/20 Ordered By: Lionel Carey Diet: advance to usual diet and diabetic diet Activity on Discharge: As tolerated Stand Alone Forms: Patient Portal Discharge page Other Ambulatory Orders: Liver Panel (Routine) Timeframe: [id number] Facility: [facility] - Location: Laboratory Ordered By: Lionel Barber Care Plan Goals: To feeding what is causing the elevated liver enzymes. Health Concerns: Elevated liver enzymes. Plan of Treatment: Avoid medications and anything that will cause your liver enzyme to get worse this include not taking Tylenol, I do not take Lipitor anymore and check with your doctor before taking any other medication. Follow-up with your GI provider Lindsey Saleh NP Assessment: Elevated liver enzymes Discharge Date/Time: 08/01/20 16:30
--- NOTE | 2020-08-01 12:47 | MHC.CM.PN ---
nurse patient care technician note electronic medical record reviewed along with case discussed with staff nurse and with hospitalist met with patient he will be discharged home today , discharge plan resumption of his [facility] care vna spoke with abimael they will be out tonight for his locked med box . pcp dr yunior hedrick patient to call for post hospitla discharge follow up transport home patient to arrange with family
--- NOTE | 2020-08-01 14:50 | CONS_ITS ---
DATE OF SERVICE: 07/30/2020 REASON FOR CONSULTATION: Elevated LFTs and jaundice. HISTORY OF PRESENT ILLNESS: The patient is a 54-year-old male without any preceding history of liver disease, who presents with newly elevated LFTs and jaundice over the preceding 10 days. He had a normal liver profile in May. He was seen in the ER on July 20 for evaluation of abdominal discomfort and constipation. At that time, a liver profile was slightly abnormal with a total bilirubin of 1.6, AST 126, ALT 96, and an alkaline phosphatase 125. His albumin and lipase were normal. He did have a CAT scan of the abdomen during that ER visit on July 20 describing a normal-appearing liver, possible gallstones, no biliary disease, normal spleen, and no reported ascites. He came back to the ER yesterday for evaluation of rising LFTs. He denies any particular abdominal pain other than occasional right-sided and right upper quadrant discomfort. However, he reports that he has been eating comfortably and denies any nausea nor vomiting. He has not noticed any jaundice. He denies any significant heartburn nor dysphagia. He denies any weight loss, fevers, ill contacts, nor exposure to anybody with hepatitis or jaundice as far as he knows. He denies any change in bowel habits, hematochezia, melena, nor diarrhea. He denies any known family history of liver disease other than in a daughter with fatty liver. He denies any alcohol use nor drug use. He uses occasional recreational marijuana. He is on a statin medication, but thinks he has been on that for well over 6 months now. He is on multiple other medications, but really cannot definitively say as to when he started those. Since being here, he has been tolerating his diet. He denies any particular abdominal pain at the present time. He denies use of any chronic acetaminophen nor NSAIDs. MEDICATIONS: His medication list at home included amlodipine, atorvastatin, bupropion, vitamin D, clonazepam, dexamethasone, famotidine, furosemide, hydrochlorothiazide, insulin, linagliptin, losartan, meclizine, metoclopramide, ondansetron, MiraLAX, prucalopride, simethicone, tizanidine, trazodone, venlafaxine. PAST MEDICAL HISTORY: Insulin-dependent diabetes mellitus. Renal insufficiency. Hypertension. Hyperlipidemia. Carpal tunnel surgery. He denies any history of DC, stroke, nor lung disease. He denies any other surgeries. History of depression. Neuropathy. Sleep apnea. He did have a negative colonoscopy with Dr. Pérez in 2017. Of note, he has been seen by the GI department at [facility] as well for apparently a question of fatty liver with a negative liver workup in the past including autoimmune serologies with DORINDA and antimitochondrial antibody. Hepatitis serologies were negative as well. This was in 2014. However, his liver enzymes seemed to have been essentially normal throughout all those evaluations. SOCIAL HISTORY: He is and lives with his sister. He does not smoke. He does not use any significant amounts of alcohol. He does not use any drugs other than recreational marijuana on occasion. FAMILY HISTORY: Noncontributory. REVIEW OF SYSTEMS: CONSTITUTIONAL: He has been feeling fairly well at home with good appetite. SKIN: No rash. No pruritus. CARDIAC: No chest pain. PULMONARY: No cough. No hemoptysis. GASTROINTESTINAL: As above. URINARY: No dysuria. No hematuria. PHYSICAL EXAMINATION: GENERAL: The patient is a pleasant, alert, comfortable-appearing male. SKIN: Warm and dry. HEENT: Anicteric sclerae. NECK: Supple. CHEST: Clear. CARDIAC: Normal S1, S2. ABDOMEN: Soft, nondistended, nontender, without organomegaly, mass, nor obvious ascites. EXTREMITIES: Without edema. LABORATORY DATA: Laboratories are as above. His total bilirubin on July 20 was 1.6 and was 2.8 on July 29, and 2.7 last evening. Direct bilirubin is 1.9. GGT was 2608 yesterday. His AST was 126 on July 20 and 165 on July 29. His ALT was 96 on July 20 and 563 on July 29. Alkaline phosphatase was 125 on July 20 and 671 on July 29. Lipase was 105. His acetaminophen level was 1. DORINDA is pending. Hepatitis A, B, and C serologies are pending. COVID was negative last evening. His ultrasound done yesterday describes a normal-appearing liver, incompletely distended gallbladder with some mild diffuse gallbladder wall thickening and some sludge, but no sign of any surrounding fluid. The common bile duct was 3 mm. There was no ascites. IMPRESSION: The patient has what appears to be an acute hepatitis with elevated transaminases, and elevated cholestatic numbers with the alkaline phosphatase and total bilirubin. Again, he had a normal liver profile in May and this current rise in the LFTs seems to be fairly acute and rapid over the past 10 days. The etiology of that is not clear at this time. He is on a statin medication, but seems to have been on this chronically and therefore that would be unlikely to be causing this. He is on a couple of other medications including prucalopride and linagliptin, both of which might cause hepatitis, but it is not entirely clear as to when he may have started those. He does not show any signs of liver failure at this time. His abdominal exam is benign and I doubt this represents cholecystitis based on the imaging studies and his benign abdomen. I do not think this reflects any underlying chronic liver disease based on his otherwise good clinical appearance, normal albumin, and normal PT with INR. At this point, I would check the viral serologies and autoimmune studies as you are doing. I would check a repeat liver profile both today and tomorrow, along with a PT and INR. I would hold the statin and all other potentially hepatotoxic drugs. We may need to check a hepatitis C viral load if the hepatitis C antibody is negative and the situation persists so as to rule out acute Hepatitis C. I do not think he has any component of biliary obstruction, but he may need an MRCP for further definitive evaluation of that. If possible, it would be helpful if one can obtain a complete history of his medication use and if any of those medications are new that might be associated with hepatotoxicity and this elevated liver profile. I think his diet can be continued as tolerated. Certainly, if things persist and worsen, he may need a liver biopsy for further evaluation. If he shows any signs of liver failure, then he may need transfer to a tertiary center; however, at this point, that is certainly not necessary. This has been discussed with the patient. Thank you for this consultation. MD OLIVIA Valencia/ELVA / [phone] SULEIMAN
[2020-08-01 15:31] VITALS: BP 164/93; PULSE 98; RESP 20; TEMP 36.2; O2SAT 97
[2020-08-01 16:34] LABS: Glucose, Whole Blood 205 mg/dL (60-115)
[2020-08-01 18:02] LABS: Anti Nuclear Antibody Screen NEGATIVE (NEGATIVE)
[2020-08-03 02:56] LABS: EBV DNA PCR Not Detected (Not Detected); EBV Source Whole Blood
[2020-08-03 08:16] LABS: Hepatitis A Antibody IgM 0.13 Index (0-0.79); ~Hepatitis A Antibody IgM Nonreactive (Nonreactive)
== END 2020-08-01 16:30 | disposition home health service (06) | DRG 948 ==
LOC: HO.ED 07-30 00:13 → HO.EDOVER 07-30 00:38 → HO.S3 07-30 15:50
PROVIDERS: Internal Medicine; Physician Assistant; Admitting Provider Hospitalist; Emergency Provider Internal Medicine; PCP Internal Medicine; Visit Provider Internal Medicine
DX: R74.01 Elevation of levels of liver transaminase levels (principal); N17.9 Acute kidney failure, unspecified; E11.65 Type 2 diabetes mellitus with hyperglycemia; F41.9 Anxiety disorder, unspecified; K21.9 Gastro-esophageal reflux disease without esophagitis; E78.5 Hyperlipidemia, unspecified; E11.42 Type 2 diabetes mellitus with diabetic polyneuropathy; Z20.822 Contact with and (suspected) exposure to COVID-19; Z77.22 Contact with and (suspected) exposure to environmental tobacco smoke (acute) (chronic); Z91.14 Patient's other noncompliance with medication regimen; Z79.4 Long term (current) use of insulin; Z79.899 Other long term (current) drug therapy; I12.9 Hypertensive chronic kidney disease with stage 1 through stage 4 chronic kidney disease, or unspecified chronic kidney disease; E11.22 Type 2 diabetes mellitus with diabetic chronic kidney disease; N18.9 Chronic kidney disease, unspecified
CPT/HCPCS: 36415; 74181; 76705; 80048; 80061; 80076; 80143; 82947; 82977; 83690; 83721; 85025; 85610; 85730; 86038; 86039; 86704; 86706; 86709; 86803; 87340; 87635; 87798; 96372; 99212; 99285

== ENCOUNTER 2020-08-01 18:41 | Emergency (ER) | payer OTHER, SELFPAY ==
[2020-08-01] VITALS (7 sets, daily range): BP systolic 170–196; BP diastolic 88–122; PULSE 79–102; RESP 16–19; TEMP 36.5–36.6; O2SAT 98–99; BMI 32.1
--- NOTE | 2020-08-01 19:44 | ED.GENADULT ---
HPI - General Adult General Chief complaint: General Medical Stated complaint: hypertension Time Seen by Provider: 08/01/20 19:44 Source: patient Mode of arrival: ambulatory Limitations: no limitations History of Present Illness HPI narrative: 54-year-old male with past medical history that is significant for hyperlipidemia, diabetes, chronic kidney disease, obesity, neuropathy, anxiety disorder, hypertension on quadruple therapy bone losartan, hydrochlorothiazide, amlodipine and labetalol he got discharged from the hospital today for which she was admitted to the facility for transaminitis and jaundice with unclear etiology with plan to follow with GI. He was discharged today as he was doing better he had no complaints he got home home [facility] did a visit and found his blood pressure to be elevated he was asymptomatic he has history of elevated blood pressure he did not take his blood pressure medication he was subsequently sent to emergency room via EMS for evaluation of his high blood pressure. Patient reports he was happy to be home and not sure why he had to come back here. Onset (ago): hour(s) Treatments prior to arrival: none Related Data Home Medications Medication Instructions Recorded Confirmed blood sugar diagnostic #10 ea 02/02/20 08/02/20 meclizine 25 mg tablet 25 mg PO Q6-8H PRN 02/02/20 08/02/20 ondansetron HCl 4 mg tablet 4 mg PO Q6-8H PRN 02/02/20 08/02/20 triamcinolone acetonide 0.1 % 0.1 applic TOPICAL BID 02/02/20 08/02/20 topical cream alcohol swabs 0 pad TOPICAL DIRECTED 07/29/20 08/02/20 bupropion HCl 150 mg PO DAILY 07/30/20 08/02/20 venlafaxine 1 cap PO DAILY 07/31/20 08/02/20 Previous Rx's Medication Instructions Recorded clonazepam 0.5 mg PO TID #90 tab 02/26/20 cholecalciferol (vitamin D3) 50 50 mcg PO DAILY #30 cap 03/04/20 mcg (2,000 unit) capsule losartan 50 mg tablet 50 mg PO DAILY #90 tab 03/22/20 famotidine 20 mg tablet 20 mg PO BID #180 tab 03/23/20 trazodone 150 mg tablet 150 mg PO BEDTIME #90 tab 03/23/20 tizanidine 4 mg capsule 4 mg PO Q8H PRN #60 cap 04/29/20 labetalol 100 mg PO BID #60 tab 05/07/20 pen needle, diabetic 32 gauge x #400 ea 05/11/20 amlodipine 10 mg tablet 10 mg PO DAILY #30 tab 06/08/20 lancets 28 gauge #150 ea 06/17/20 simethicone 180 mg capsule 180 mg PO TID 30 Days #90 cap 06/24/20 hydrochlorothiazide 25 mg tablet 25 mg PO DAILY #90 tab 07/13/20 prucalopride 2 mg tablet 2 mg PO DAILY 30 Days #30 tab 07/15/20 furosemide [Lasix] 20 mg PO QAM #20 tab 07/21/20 polyethylene glycol 3350 [Miralax] 17 g PO DAILY #510 g 07/21/20 metoclopramide HCl 5 mg tablet 5 mg PO QID 30 Days #120 tab 07/25/20 insulin aspart U-100 100 unit/mL See Rx Instructions SUBCUT TID 30 07/29/20 (3 mL) subcutaneous pen Days #30 ml insulin glargine U-300 conc 300 80 unit SUBCUT DAILY 30 Days #9 ml 07/29/20 unit/mL (3 mL) subcutaneous pen linagliptin 5 mg tablet 5 mg PO DAILY 30 Days #30 tab 07/29/20 Allergies Allergy/AdvReac Type Severity Reaction Status Date / Time cephalexin [From KEFLEX] Allergy Mild ITCHY Verified 07/29/20 18:39 THROAT lisinopril [LISINOPRIL] Allergy Unknown SWELLING Verified 07/29/20 18:39 COUGH Review of Systems Review of Systems: Constitutional: No Weight loss, No Fever, No Chills, No Night Sweats, No Fatigue, No Malaise ENT/Mouth: No Hearing loss, No Ear Pain, No Nasal Congestion, No Sinus Pain, No Hoarseness, No sore throat, No Rhinorrhea, No Swallowing Difficulty Eyes: No Eye Pain, No Swelling, No Redness, No Foreign Body, No Discharge, No Vision Changes Cardiovascular: No Chest Pain, No SOB, No Dyspnea on Exertion, No Orthopnea, No Edema, No Palpitations Respiratory: No Cough, No Sputum, No Wheezing, No Smoke Exposure, No Dyspnea Gastrointestinal: No Nausea, No Vomiting, No Diarrhea, No Constipation, No abdominal Pain, No Hematochezia, No Melena Genitourinary: no irregular bleeding, No Dysuria, No Urinary Frequency, No Hematuria, No Urinary Incontinence, No Urgency, No Flank Pain, No Urinary Flow Changes, No Hesitancy Musculoskeletal: No joint pain, No Myalgias, No Joint Swelling Skin: No Skin Lesions, No rash Neuro: No Weakness, No Numbness, No Paresthesias, No Loss of Consciousness, No Dizziness, No Headache Psych: No Anxiety/Panic, No Depression, No SI/HI/AH/VH, No Social Issues Heme/Lymph: No Bruising, No Bleeding,No Lymphadenopathy Endocrine: No Polyuria, No Polydipsia, No Temperature Intolerance Yes all other systems are reviewed and are negative REPLACED BY [facility] Past Medical History Medical History Anxiety Chronic hyperglycemia CKD (chronic kidney disease) stage 3, GFR 30-59 ml/min Depression Diabetes Diabetes type 2, uncontrolled Diabetic nephropathy associated with type 2 diabetes mellitus Diabetic neuropathy associated with type 2 diabetes mellitus Dyslipidemia GERD (gastroesophageal reflux disease) High cholesterol Hypercalcemia Hyperlipidemia Hypertension USP (current) use of insulin Neuropathy Obesity (BMI 30-39.9) Sleep apnea Vitamin D deficiency Surgical History History of esophagogastroduodenoscopy (EGD) Hx of arthroscopy of knee Hx of arthroscopy of right knee Family History Family History Father Diabetes Mother No problems noted. Social History Social History Household Members: Family Household Members Other:: SISTER Housing: Apartment Alcohol intake: never Smoking Status: Never smoker Smoked in Last 30 Days: No Second Hand Smoke Exposure: Yes (HISTORY OF SECOND HAND SMOKE EXPOSURE) Use of substances other than those prescribed or required for medical reasons: No Advance Directives: Yes Advance Directives on File: Yes Advance Directives Date on File: 05/05/20 service: No Current occupational status: disabled Physical Exam Vital Signs: Vital Signs: Last Vital Signs Temp 97.8 F 08/01/20 22:00 Pulse 91 08/02/20 00:00 Resp 18 08/01/20 22:00 BP 162/78 H 08/02/20 00:00 Pulse Ox 98 08/01/20 22:00 Body Mass Index 32.1 Reviewed Const: General: cooperative; No acute distress or intoxicated appearing Nutritional Appearance: average body habitus and not well nourished Orientation/consciousness: patient oriented x3 HENMT: Head: Yes normal to inspection Ears: hearing grossly normal bilaterally Eyes: General: appearance normal, both eyes and all related structures Visual Ruffin: normal visual ruffin by confrontation Neck: Neck: Yes normal visual inspection, No positive Brudzinski's sign, No positive Kernig's sign and No tender Thyroid: Thyroid normal Chest: Chest palpation & inspection: normal inspection of the chest Resp: Effort & Inspection: normal respiratory effort Auscultation: clear to auscultation bilaterally Cardio: Jugular venous distension: no JVD Rhythm: regular rhythm Heart sounds: S1 normal heart sound present and S2 normal heart sound present GI: Inspection: Yes normal to inspection Percussion: Yes normal to percussion Auscultation: normal bowel sounds : General: Yes no CVA tenderness Back/Spine/Pelvis: Back: no CVA tenderness Skin: General skin exam: no rashes or lesions noted Neuro: General: patient oriented x3 Extrem: General: Yes normal to inspection Course Reevaluation(s) Reevaluation #1: Recent hospitalization for transaminitis and jaundice with unclear etiology plan for follow-up with the GI ultrasound and abdominal CT no evidence of acute cholecystitis negative MRCP. He returns today for elevated blood pressure his history of hypertension on quadruple therapy today did not take he is asymptomatic. Given his dose of antihypertensive blood pressure improved. Repeat labs show any significant change appearing chronic. Given that he was discharged from the hospital and elevated blood pressure requiring several doses of antihypertensive to lower I did discuss the case with hospitalist Dr. Wood recommend close outpatient follow-up with PCP and Nephro for management of his blood pressure but no admission is recommended at this time. Patient remains asymptomatic importance of medication compliance, follow up with his primary care doctor, GI and clear return instructions provided. Stable for discharge. Medical Decision Making Lab Data Result diagrams: 08/01/20 20:20 08/01/20 20:20 Labs: Lab Results 08/01/20 08/01/20 08/01/20 Range/Units 20:20 20:20 20:20 WBC 11.4 H (4.8-10.8) X10*3/uL RBC 3.82 L (4.60-5.80) X10*6/uL Hgb 11.4 L (14.0-18.0) g/dl Hct 34.3 L (42-52) % MCV 89.8 (80-98) fL MCH 29.8 (27.0-33.0) pg MCHC 33.2 (31.0-36.0) g/dl RDW 12.8 (11.0-16.0) % Plt Count 338 (160-400) X10*3/uL MPV 10.3 (9.4-12.4) fL Immature Gran % (Auto) 0.5 H (0.0-0.4) % Neut % (Auto) 68.5 (45-73) % Lymph % (Auto) 22.0 (20-40) % [place] % (Auto) 7.4 (2-11) % Eos % (Auto) 0.8 (0-4) % Baso % (Auto) 0.8 (0-2) % Lymph # (Auto) 2.5 (1.2-4.9) X10*3/uL [place] # (Auto) 0.8 (0.1-1.2) X10*3/uL Eos # (Auto) 0.1 (0.0-0.4) X10*3/uL Baso # (Auto) 0.1 (0.0-0.2) X10*3/uL Abs Immat Gran (auto) 0.06 H (0.00-0.03) X10*3/uL Absolute Neuts (auto) 7.8 (2.0-8.3) X10*3/uL Absolute Nucleated RBC 0.000 (0.0-0.012) X10*3/uL Nucleated RBC % (auto) 0.0 (0.0-0.2) /100WBC PT 13.0 (10.8-13.0) SEC INR 1.1 (0.9-1.1) APTT 40.9 H (24.1-38.0) SEC Sodium 131 L (135-145) mmol/L Potassium 4.6 (3.3-5.1) mmol/L Chloride 97 (96-108) mmol/L Carbon Dioxide 23 (22-29) mmol/L Anion Gap 16 (12-20) BUN 45 H (9-16) mg/dL Creatinine 2.48 H (0.5-1.4) mg/dL Estim Creat Clear Calc 39.4 Estimated GFR 27 Random Glucose 349 H D (60-115) mg/dL Calcium 9.4 (8.4-10.2) mg/dL Total Bilirubin 1.7 H (0.0-1.0) mg/dL AST 69 H (5-37) U/L ALT 268 H (0-40) U/L Alkaline Phosphatase 572 H (39-117) U/L Total Protein 7.4 (6.5-8.0) g/dL Albumin 3.8 (3.5-5.0) g/dL Urine Color Urine Appearance Urine pH (5.0-8.0) Ur Specific [place] (1.005-1.025) Urine Protein (NEG-TRACE) MG/DL Urine Glucose (UA) (NEG) MG/DL Urine Ketones (NEG) MG/DL Urine Blood (NEG) Urine Nitrite (NEG) Ur Leukocyte Esterase (NEG) Urine RBC (0) /HPF Urine WBC (0-4) /HPF Ur Squamous Epith Cells /LPF Amorphous Sediment /LPF Urine Bacteria /LPF Hyaline Casts /LPF Urine Mucus /LPF 08/01/20 Range/Units 21:18 WBC (4.8-10.8) X10*3/uL RBC (4.60-5.80) X10*6/uL Hgb (14.0-18.0) g/dl Hct (42-52) % MCV (80-98) fL MCH (27.0-33.0) pg MCHC (31.0-36.0) g/dl RDW (11.0-16.0) % Plt Count (160-400) X10*3/uL MPV (9.4-12.4) fL Immature Gran % (Auto) (0.0-0.4) % Neut % (Auto) (45-73) % Lymph % (Auto) (20-40) % [place] % (Auto) (2-11) % Eos % (Auto) (0-4) % Baso % (Auto) (0-2) % Lymph # (Auto) (1.2-4.9) X10*3/uL [place] # (Auto) (0.1-1.2) X10*3/uL Eos # (Auto) (0.0-0.4) X10*3/uL Baso # (Auto) (0.0-0.2) X10*3/uL Abs Immat Gran (auto) (0.00-0.03) X10*3/uL Absolute Neuts (auto) (2.0-8.3) X10*3/uL Absolute Nucleated RBC (0.0-0.012) X10*3/uL Nucleated RBC % (auto) (0.0-0.2) /100WBC PT (10.8-13.0) SEC INR (0.9-1.1) APTT (24.1-38.0) SEC Sodium (135-145) mmol/L Potassium (3.3-5.1) mmol/L Chloride (96-108) mmol/L Carbon Dioxide (22-29) mmol/L Anion Gap (12-20) BUN (9-16) mg/dL Creatinine (0.5-1.4) mg/dL Estim Creat Clear Calc Estimated GFR Random Glucose (60-115) mg/dL Calcium (8.4-10.2) mg/dL Total Bilirubin (0.0-1.0) mg/dL AST (5-37) U/L ALT (0-40) U/L Alkaline Phosphatase (39-117) U/L Total Protein (6.5-8.0) g/dL Albumin (3.5-5.0) g/dL Urine Color YELLOW Urine Appearance CLEAR Urine pH 5.0 (5.0-8.0) Ur Specific [place] 1.025 (1.005-1.025) Urine Protein 2+ H (NEG-TRACE) MG/DL Urine Glucose (UA) 500 H (NEG) MG/DL Urine Ketones NEG (NEG) MG/DL Urine Blood 1+ H (NEG) Urine Nitrite NEG (NEG) Ur Leukocyte Esterase NEG (NEG) Urine RBC 1-4 (0) /HPF Urine WBC 0-2 (0-4) /HPF Ur Squamous Epith Cells TRACE /LPF Amorphous Sediment TRACE /LPF Urine Bacteria NONE /LPF Hyaline Casts 0-2 /LPF Urine Mucus TRACE /LPF ECG Data Interpretation: Normal sinus rhythm Rate 94 MI interval within normal limits No acute ST segment changes No significant change from previous Discharge Plan Discharge Clinical Impression: Asymptomatic hypertensive urgency Patient Disposition: Home, Self-Care Instructions: Hypertension (ED) Additional Instructions: Taking medications as prescribed Keep a blood pressure log Follow-up with her primary care doctor closely Follow-up with GI closely is plan Return if any concerns or worsening symptoms Thank you Prescriptions: No Action cholecalciferol (vitamin D3) [D3-2000] 50 mcg (2,000 unit) capsule 50 mcg PO DAILY Qty: 30 RF: 6 losartan 50 mg tablet 50 mg PO DAILY Qty: 90 RF: 8 famotidine 20 mg tablet 20 mg PO BID Qty: 180 RF: 8 trazodone 150 mg tablet 150 mg PO BEDTIME Qty: 90 RF: 8 (DME) pen needle, diabetic [BD Kacey 2nd Gen Pen Needle] 32 gauge x 5/32 needle See Rx Instructions .MEDSUPPLY Qty: 400 RF: 4 amlodipine [Norvasc] 10 mg tablet 10 mg PO DAILY Qty: 30 RF: 8 (DME) lancets [FreeStyle Lancets] 28 gauge misc See Rx Instructions .MEDSUPPLY Qty: 150 RF: 5 hydrochlorothiazide 25 mg tablet 25 mg PO DAILY Qty: 90 RF: 8 Motegrity 2 mg tablet 2 mg PO DAILY 30 Days Qty: 30 RF: 2 clonazepam 1 mg tablet 0.5 mg PO TID Qty: 90 RF: 4 labetalol 100 mg Tablet 100 mg PO BID Qty: 60 RF: 0 bupropion HCl 150 mg tablet extended release 24 hr 150 mg PO DAILY RF: 0 venlafaxine 150 mg capsule,extended release 24hr 1 cap PO DAILY RF: 0 polyethylene glycol 3350 [Miralax] 17 gram/dose powder 17 g PO DAILY Qty: 510 RF: 0 furosemide [Lasix] 20 mg tablet 20 mg PO QAM Qty: 20 RF: 0 tizanidine 4 mg capsule 4 mg PO Q8H PRN (Reason: headach) Qty: 60 RF: 5 simethicone 180 mg capsule 180 mg PO TID 30 Days Qty: 90 RF: 3 metoclopramide HCl 5 mg tablet 5 mg PO QID 30 Days Qty: 120 RF: 6 meclizine 25 mg tablet 25 mg PO Q6-8H PRN (Reason: Dizziness) RF: 0 ondansetron HCl 4 mg tablet 4 mg PO Q6-8H PRN (Reason: Nausea) RF: 0 (DME) blood sugar diagnostic Strip See Rx Instructions ea Not Applicable .MEDSUPPLY Qty: 10 RF: 0 triamcinolone acetonide 0.1 % cream 0.1 applic topical BID RF: 0 alcohol swabs Pads, Medicated 0 pad topical DIRECTED RF: 0 Toujeo Max U-300 SoloStar 300 unit/mL (3 mL) insulin pen 80 unit subcut DAILY 30 Days Qty: 9 RF: 8 insulin aspart U-100 [Novolog Flexpen U-100 Insulin] 100 unit/mL (3 mL) insulin pen See Rx Instructions subcut TID 30 Days Qty: 30 RF: 9 Tradjenta 5 mg tablet 5 mg PO DAILY 30 Days Qty: 30 RF: 8 Referrals: Physician,Unknown [Primary Care Provider] - 2 days
--- NOTE | 2020-08-01 19:45 | ECG_ITS ---
Test Reason : HIGH BP Blood Pressure : / mmHG Vent. Rate : 094 BPM Atrial Rate : 094 BPM P-R Int : 146 ms QRS Dur : 076 ms QT Int : 368 ms P-R-T Axes : 045 001 042 degrees QTc Int : 460 ms Normal sinus rhythm Voltage criteria for left ventricular hypertrophy Abnormal ECG When compared with ECG of 04-MAY-2020 16:11, No significant change was found Referred By: Christo Dong Electronically Signed By:KATHERINE SMITH
[2020-08-01] MEDS: 0.9 % Sodium Chloride 500 ML IV (20:21)
[2020-08-01 20:24] LABS: MANUAL DIFF FLAG NO
[2020-08-01 20:26] LABS: Basophils Absolute Auto 0.1 X10*3/uL (0.0-0.2); Basophils Percent Auto 0.8 % (0-2); Eosinophils Absolute Auto 0.1 X10*3/uL (0.0-0.4); Eosinophils Percent Auto 0.8 % (0-4); Hematocrit 34.3 % (42-52); Hemoglobin 11.4 g/dl (14.0-18.0); Imm Gran Abs Auto 0.06 X10*3/uL (0.00-0.03); Imm Gran Pct Auto 0.5 % (0.0-0.4); Lymphocytes Absolute Auto 2.5 X10*3/uL (1.2-4.9); Mean Corpuscular HGB Conc 33.2 g/dl (31.0-36.0); Mean Corpuscular Hemoglobin 29.8 pg (27.0-33.0); Mean Corpuscular Volume 89.8 fL (80-98); Mean Platelet Volume 10.3 fL (9.4-12.4); Monocytes Absolute Auto 0.8 X10*3/uL (0.1-1.2); Monocytes Percent Auto 7.4 % (2-11); Neutrophils Absolute Auto 7.8 X10*3/uL (2.0-8.3); Neutrophils Percent Auto 68.5 % (45-73); Platelet Count 338 X10*3/uL (160-400); Red Blood Count 3.82 X10*6/uL (4.60-5.80); Red Cell Distribution Width 12.8 % (11.0-16.0); White Blood Count 11.4 X10*3/uL (4.8-10.8)
[2020-08-01 20:31] LABS: INTERNATIONAL NORM RATIO 1.1 (0.9-1.1)
[2020-08-01 20:55] LABS: Alanine Aminotransferase 268 U/L (0-40); Albumin Level 3.8 g/dL (3.5-5.0); Alkaline Phosphatase 572 U/L (39-117); Anion Gap 16 (12-20); Aspartate Amino Transferase 69 U/L (5-37); Bilirubin Total 1.7 mg/dL (0.0-1.0); Blood Urea Nitrogen 45 mg/dL (9-16); Calcium 9.4 mg/dL (8.4-10.2); Carbon Dioxide 23 mmol/L (22-29); Chloride 97 mmol/L (96-108); Creatinine Clr Calc Pharmacy 39.4; Estimated Glomerular Filt Rate 27; Glucose Random 349 mg/dL (60-115); Potassium 4.6 mmol/L (3.3-5.1); Sodium 131 mmol/L (135-145); Total Protein 7.4 g/dL (6.5-8.0)
[2020-08-01 20:59] LABS: Partial Thromboplastin Time 40.9 SEC (24.1-38.0)
[2020-08-01 21:27] LABS: Glucose Urine UA 500 MG/DL (NEG); Leukocyte Esterase Urine NEG (NEG); Nitrite Urine NEG (NEG); Specific Gravity - Urine 1.025 (1.005-1.025); Urine Blood 1+ (NEG); Urine Ketones NEG (NEG); Urine Protein 2+ MG/DL (NEG-TRACE)
[2020-08-01] MEDS: amLODIPine Besylate 10 MG TABLET PO (21:27)
[2020-08-01] MEDS: Labetalol HCL 100 MG/20 ML VIAL 10 MG IVPUSH ×2 (21:27→22:26)
[2020-08-01 21:29] LABS: Appearance Urine CLEAR; Color Urine YELLOW
[2020-08-01 21:41] LABS: WBC Urine 0-2 /HPF (0-4)
[2020-08-01 21:42] LABS: Amorphous Sediment Urine TRACE /LPF; Hyaline Casts Urine 0-2 /LPF; Mucus Urine TRACE /LPF; Squamous Epithelial Cell Urine TRACE /LPF
[2020-08-01] MEDS: hydrALAZINE HCl 20 MG/ML VIAL 10 MG IVPUSH (23:27)
[2020-08-02] VITALS: BP 162/78; PULSE 91
== END 2020-08-02 00:44 | disposition home or self-care (01) ==
PROVIDERS: Nurse Practitioner Primary Care; Emergency Provider Internal Medicine
DX: I16.0 Hypertensive urgency (principal); R74.01 Elevation of levels of liver transaminase levels; I12.9 Hypertensive chronic kidney disease with stage 1 through stage 4 chronic kidney disease, or unspecified chronic kidney disease; E11.22 Type 2 diabetes mellitus with diabetic chronic kidney disease; N18.30 Chronic kidney disease, stage 3 unspecified; Z79.4 Long term (current) use of insulin; Z79.899 Other long term (current) drug therapy
CPT/HCPCS: 36415; 80053; 81001; 85025; 85610; 85730; 93005; 96365; 96375; 99285

== ENCOUNTER → 2020-08-12 12:07 | Outpatient (BNVA) | payer OTHER, SELFPAY | PROVIDERS: PCP Internal Medicine; Visit Provider Physician Assistant | DX: M70.22 Olecranon bursitis, left elbow (principal) | CPT/HCPCS: 99202 ==

== ENCOUNTER 2020-08-23 14:49 | Outpatient (REF) | payer OTHER, SELFPAY ==
[2020-08-23 15:12] LABS: MANUAL DIFF FLAG NO
[2020-08-23 15:18] LABS: Basophils Absolute Auto 0.1 X10*3/uL (0.0-0.2); Basophils Percent Auto 0.8 % (0-2); Eosinophils Absolute Auto 0.1 X10*3/uL (0.0-0.4); Eosinophils Percent Auto 0.8 % (0-4); Hematocrit 34.5 % (42-52); Hemoglobin 11.8 g/dl (14.0-18.0); Imm Gran Abs Auto 0.04 X10*3/uL (0.00-0.03); Imm Gran Pct Auto 0.4 % (0.0-0.4); Lymphocytes Percent Auto 18.3 % (20-40); Mean Corpuscular HGB Conc 34.2 g/dl (31.0-36.0); Mean Corpuscular Hemoglobin 29.9 pg (27.0-33.0); Mean Corpuscular Volume 87.6 fL (80-98); Mean Platelet Volume 10.3 fL (9.4-12.4); Monocytes Percent Auto 9.5 % (2-11); Neutrophils Absolute Auto 7.5 X10*3/uL (2.0-8.3); Neutrophils Percent Auto 70.2 % (45-73); Platelet Count 254 X10*3/uL (160-400); Red Blood Count 3.94 X10*6/uL (4.60-5.80); Red Cell Distribution Width 13.1 % (11.0-16.0); White Blood Count 10.6 X10*3/uL (4.8-10.8)
[2020-08-23 15:47] LABS: Anion Gap 14 (12-20); Blood Urea Nitrogen 31 mg/dL (9-16); Calcium 10.1 mg/dL (8.4-10.2); Carbon Dioxide 28 mmol/L (22-29); Chloride 99 mmol/L (96-108); Estimated Glomerular Filt Rate 27; Glucose Random 248 mg/dL (60-115); Potassium 5.1 mmol/L (3.3-5.1); Sodium 136 mmol/L (135-145)
== END 2020-08-23 14:50 | disposition home or self-care (01) ==
LOC: HO.LAB 14:49
PROVIDERS: PCP Internal Medicine; Visit Provider Internal Medicine
DX: Z00.00 Encounter for general adult medical examination without abnormal findings (principal); R51.9 Headache, unspecified
CPT/HCPCS: 36415; 80048; 85025

== ENCOUNTER → 2020-10-27 13:04 | Outpatient (BNVA) | payer OTHER, SELFPAY | PROVIDERS: PCP Internal Medicine; Referring Provider Internal Medicine; Visit Provider Nurse Practitioner | DX: R94.5 Abnormal results of liver function studies (principal) | CPT/HCPCS: 99212 ==

== ENCOUNTER → 2020-11-28 13:28 | Outpatient (BNVA) | payer OTHER, SELFPAY | PROVIDERS: PCP Internal Medicine; Visit Provider Nurse Practitioner Gerontology | DX: E11.65 Type 2 diabetes mellitus with hyperglycemia (principal); E11.21 Type 2 diabetes mellitus with diabetic nephropathy; E11.42 Type 2 diabetes mellitus with diabetic polyneuropathy; E11.22 Type 2 diabetes mellitus with diabetic chronic kidney disease; I12.9 Hypertensive chronic kidney disease with stage 1 through stage 4 chronic kidney disease, or unspecified chronic kidney disease; N18.30 Chronic kidney disease, stage 3 unspecified; E78.5 Hyperlipidemia, unspecified; E66.9 Obesity, unspecified; E55.9 Vitamin D deficiency, unspecified; Z79.4 Long term (current) use of insulin | CPT/HCPCS: 82947; 99212 ==

== ENCOUNTER → 2020-11-29 13:13 | Outpatient (BNVA) | payer OTHER, SELFPAY | PROVIDERS: PCP Internal Medicine; Visit Provider Dietitian, Registered | DX: E11.65 Type 2 diabetes mellitus with hyperglycemia (principal); E11.22 Type 2 diabetes mellitus with diabetic chronic kidney disease; N18.30 Chronic kidney disease, stage 3 unspecified | CPT/HCPCS: 97803 ==

== ENCOUNTER 2020-12-15 11:47 | Emergency (ER) | payer OTHER, SELFPAY ==
--- NOTE | ~2020-12-15 | US_ITS ---
EXAMINATION: US VENOUS ULTRASOUND WITH DOPPLER LOWER EXTREMITY, LEFT CLINICAL INFORMATION: Left lower extremity edema. Assess for occult DVT. COMPARISON: None TECHNIQUE: Ultrasound of the deep veins is performed from the hip to the calf with compression sonography and color and pulse Doppler assessment. Spectral analysis with color-flow imaging is performed. FINDINGS: There is normal venous compression and respiratory variation and augmented flow. The visualized common femoral vein, superficial femoral vein, profunda femoral vein, popliteal vein, and the trifurcation region shows no evidence of deep venous thrombosis. No popliteal fossa cyst demonstrated. There is an elongated node left groin with normal gloria architecture and short axis dimension only 0.9 cm. US/US venous duplex LE LT IMPRESSION: No DVT demonstrated in the left lower extremity.
--- NOTE | ~2020-12-15 | XR_ITS ---
EXAMINATION: XR TIBIA AND FIBULA, LEFT CLINICAL INFORMATION: Pain and slight redness. COMPARISON: None TECHNIQUE: AP and lateral views of the left tibia and fibula were obtained. FINDINGS: Visualized tibia and fibula is unremarkable. No fracture or dislocation seen. The ankle mortise and subtalar joints are normal. XR/XR tibia fibula LT 2V IMPRESSION: Unremarkable left tibia and fibula.
[2020-12-15 11:57] VITALS: BP 185/132; PULSE 112; RESP 18; TEMP 37; O2SAT 99; BMI 17.7
[2020-12-15] MEDS: amLODIPine Besylate 10 MG TABLET PO (12:40)
[2020-12-15 12:41] VITALS: BP 165/92; PULSE 102; RESP 18; TEMP 36.5; O2SAT 96
[2020-12-15 13:00] LABS: MANUAL DIFF FLAG NO
[2020-12-15 13:01] LABS: Basophils Absolute Auto 0.1 X10*3/uL (0.0-0.2); Basophils Percent Auto 0.7 % (0-2); Eosinophils Absolute Auto 0.1 X10*3/uL (0.0-0.4); Eosinophils Percent Auto 0.9 % (0-4); Hematocrit 33.7 % (42-52); Hemoglobin 11.7 g/dl (14.0-18.0); Imm Gran Abs Auto 0.05 X10*3/uL (0.00-0.03); Imm Gran Pct Auto 0.5 % (0.0-0.4); Lymphocytes Absolute Auto 1.6 X10*3/uL (1.2-4.9); Lymphocytes Percent Auto 16.4 % (20-40); Mean Corpuscular HGB Conc 34.7 g/dl (31.0-36.0); Mean Corpuscular Hemoglobin 29.3 pg (27.0-33.0); Mean Corpuscular Volume 84.3 fL (80-98); Mean Platelet Volume 10.1 fL (9.4-12.4); Monocytes Absolute Auto 0.9 X10*3/uL (0.1-1.2); Monocytes Percent Auto 8.9 % (2-11); Neutrophils Percent Auto 72.6 % (45-73); Platelet Count 257 X10*3/uL (160-400); Red Cell Distribution Width 11.8 % (11.0-16.0); White Blood Count 9.6 X10*3/uL (4.8-10.8)
[2020-12-15 13:20] LABS: Alanine Aminotransferase 51 U/L (0-40); Albumin Level 4.1 g/dL (3.5-5.0); Alkaline Phosphatase 152 U/L (39-117); Anion Gap 16 (12-20); Aspartate Amino Transferase 33 U/L (5-37); Bilirubin Total 0.5 mg/dL (0.0-1.0); Blood Urea Nitrogen 35 mg/dL (9-16); Calcium 9.5 mg/dL (8.4-10.2); Carbon Dioxide 19 mmol/L (22-29); Chloride 101 mmol/L (96-108); Creatinine Clr Calc Pharmacy 28.6; Estimated Glomerular Filt Rate 31; Glucose Random 180 mg/dL (60-115); Potassium 4.6 mmol/L (3.3-5.1); Sodium 131 mmol/L (135-145); Total Protein 7.3 g/dL (6.5-8.0)
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
[2020-12-15 15:08] VITALS: BP 165/93; PULSE 95; RESP 16; TEMP 36.6; O2SAT 98
== END 2020-12-15 16:13 | disposition home or self-care (01) ==
PROVIDERS: Physician Assistant; Emergency Provider Emergency Medicine; PCP Internal Medicine
DX: L03.116 Cellulitis of left lower limb (principal); M79.662 Pain in left lower leg; M79.652 Pain in left thigh; R60.0 Localized edema; Z79.899 Other long term (current) drug therapy
CPT/HCPCS: 36415; 73590; 80053; 85025; 93971; 99284

== ENCOUNTER → 2021-01-10 11:00 | Outpatient (BNVA) | payer OTHER, SELFPAY | PROVIDERS: PCP Internal Medicine; Visit Provider Dietitian, Registered | DX: E11.65 Type 2 diabetes mellitus with hyperglycemia (principal); N18.30 Chronic kidney disease, stage 3 unspecified | CPT/HCPCS: 97803 ==

== ENCOUNTER → 2021-01-24 14:30 | Outpatient (BNVA) | payer OTHER, SELFPAY | PROVIDERS: PCP Internal Medicine; Visit Provider Nurse Practitioner Gerontology | DX: E11.65 Type 2 diabetes mellitus with hyperglycemia (principal); E11.21 Type 2 diabetes mellitus with diabetic nephropathy; E11.40 Type 2 diabetes mellitus with diabetic neuropathy, unspecified; E11.22 Type 2 diabetes mellitus with diabetic chronic kidney disease; I12.9 Hypertensive chronic kidney disease with stage 1 through stage 4 chronic kidney disease, or unspecified chronic kidney disease; N18.30 Chronic kidney disease, stage 3 unspecified; E78.00 Pure hypercholesterolemia, unspecified; E78.5 Hyperlipidemia, unspecified; E83.52 Hypercalcemia; F41.8 Other specified anxiety disorders; Z88.1 Allergy status to other antibiotic agents; Z88.8 Allergy status to other drugs, medicaments and biological substances; Z79.4 Long term (current) use of insulin; Z79.899 Other long term (current) drug therapy | CPT/HCPCS: 82947; 99212 ==

== ENCOUNTER → 2021-03-03 12:25 | Outpatient (BNVA) | payer OTHER, SELFPAY | PROVIDERS: PCP Internal Medicine; Referring Provider Internal Medicine; Visit Provider Nurse Practitioner | DX: K59.04 Chronic idiopathic constipation (principal); K21.9 Gastro-esophageal reflux disease without esophagitis; K31.84 Gastroparesis; R13.12 Dysphagia, oropharyngeal phase | CPT/HCPCS: 99212 ==

== ENCOUNTER → 2021-04-07 13:29 | Outpatient (BNVA) | payer OTHER, SELFPAY | PROVIDERS: PCP Internal Medicine; Visit Provider Registered Nurse Diabetes Educator ==

== ENCOUNTER → 2021-04-11 12:09 | Outpatient (BNVA) | payer OTHER, SELFPAY | PROVIDERS: PCP Internal Medicine; Visit Provider Dietitian, Registered | DX: E11.65 Type 2 diabetes mellitus with hyperglycemia (principal); E11.22 Type 2 diabetes mellitus with diabetic chronic kidney disease; I12.9 Hypertensive chronic kidney disease with stage 1 through stage 4 chronic kidney disease, or unspecified chronic kidney disease; N18.30 Chronic kidney disease, stage 3 unspecified; Z71.3 Dietary counseling and surveillance | CPT/HCPCS: 97803 ==

== ENCOUNTER → 2021-04-24 14:59 | Outpatient (BNVA) | payer OTHER, SELFPAY | PROVIDERS: PCP Internal Medicine; Visit Provider Nurse Practitioner Gerontology | DX: E11.65 Type 2 diabetes mellitus with hyperglycemia (principal); E11.21 Type 2 diabetes mellitus with diabetic nephropathy; E11.42 Type 2 diabetes mellitus with diabetic polyneuropathy; E11.22 Type 2 diabetes mellitus with diabetic chronic kidney disease; I12.9 Hypertensive chronic kidney disease with stage 1 through stage 4 chronic kidney disease, or unspecified chronic kidney disease; N18.30 Chronic kidney disease, stage 3 unspecified; E78.5 Hyperlipidemia, unspecified; E66.9 Obesity, unspecified; E55.9 Vitamin D deficiency, unspecified; Z79.4 Long term (current) use of insulin; Z68.34 Body mass index [BMI] 34.0-34.9, adult | CPT/HCPCS: 82947; 83036; 99212 ==

== ENCOUNTER → 2021-06-01 11:07 | Outpatient (BNVA) | payer OTHER, SELFPAY | PROVIDERS: PCP Internal Medicine; Visit Provider Registered Nurse Diabetes Educator | DX: E11.69 Type 2 diabetes mellitus with other specified complication (principal); E66.9 Obesity, unspecified | CPT/HCPCS: 99211 ==

== ENCOUNTER 2021-06-09 11:49 | Outpatient (REF) | payer OTHER, SELFPAY ==
--- NOTE | ~2021-06-09 | XR_ITS ---
EXAMINATION: XR KNEE, LEFT CLINICAL INFORMATION: Pain COMPARISON: None TECHNIQUE: Two views of the left knee. FINDINGS: Bone alignment is normal. No fracture or dislocation is seen. The femoral tibial joint is normal. There are small osteophytes at the patellofemoral joint. There are osteophytes at the quadriceps tendon insertion to the patella. There is soft tissue arterial calcification. XR/XR knee LT 2V IMPRESSION: Mild degenerative changes. Soft tissue arterial calcification.
[2021-06-09 12:19] LABS: MANUAL DIFF FLAG NO
[2021-06-09 13:27] LABS: Basophils Absolute Auto 0.1 X10*3/uL (0.0-0.2); Basophils Percent Auto 0.9 % (0-2); Eosinophils Absolute Auto 0.2 X10*3/uL (0.0-0.4); Eosinophils Percent Auto 1.7 % (0-4); Hematocrit 35.9 % (42.0-52.0); Hemoglobin 12.2 g/dl (14.0-18.0); Imm Gran Abs Auto 0.05 X10*3/uL (0.00-0.03); Imm Gran Pct Auto 0.4 % (0.0-0.4); Lymphocytes Absolute Auto 1.8 X10*3/uL (1.2-4.9); Lymphocytes Percent Auto 16.4 % (20-40); Mean Corpuscular Hemoglobin 29.2 pg (27.0-33.0); Mean Corpuscular Volume 85.9 fL (80.0-98.0); Mean Platelet Volume 10.6 fL (9.4-12.4); Monocytes Absolute Auto 0.8 X10*3/uL (0.1-1.2); Neutrophils Absolute Auto 8.3 x10*3/uL (2.0-8.3); Neutrophils Percent Auto 73.6 % (45-73); Platelet Count 304 X10*3/uL (160-400); Red Blood Count 4.18 X10*6/uL (4.60-5.80); Red Cell Distribution Width 11.9 % (11.0-16.0); White Blood Count 11.3 X10*3/uL (4.8-10.8)
[2021-06-09 13:29] LABS: INTERNATIONAL NORM RATIO 1.1 (0.9-1.1); Prothrombin Time 12.2 SEC (9.9-13.0)
[2021-06-09 13:57] LABS: Alanine Aminotransferase 39 U/L (0-40); Albumin Level 4.3 g/dL (3.5-5.0); Alkaline Phosphatase 191 U/L (39-117); Aspartate Amino Transferase 23 U/L (5-37); Bilirubin Direct 0.2 mg/dL (0.0-0.5); Bilirubin Total 0.4 mg/dL (0.0-1.0)
== END 2021-06-09 11:50 | disposition home or self-care (01) ==
LOC: HO.LAB 11:49
PROVIDERS: Absent Provider Internal Medicine; PCP Internal Medicine; Visit Provider Internal Medicine
DX: K76.0 Fatty (change of) liver, not elsewhere classified (principal); R79.89 Other specified abnormal findings of blood chemistry
CPT/HCPCS: 36415; 73560; 80076; 85025; 85610

== ENCOUNTER → 2021-06-13 12:13 | Outpatient (BNVA) | payer OTHER, SELFPAY | PROVIDERS: PCP Internal Medicine; Visit Provider Dietitian, Registered | DX: E11.65 Type 2 diabetes mellitus with hyperglycemia (principal); E11.22 Type 2 diabetes mellitus with diabetic chronic kidney disease; N18.30 Chronic kidney disease, stage 3 unspecified | CPT/HCPCS: 97803 ==

== ENCOUNTER → 2021-06-29 10:46 | Outpatient (BNVA) | payer OTHER, SELFPAY | PROVIDERS: PCP Internal Medicine; Visit Provider Registered Nurse Diabetes Educator | DX: E11.69 Type 2 diabetes mellitus with other specified complication (principal); E66.9 Obesity, unspecified | CPT/HCPCS: 99211 ==

== ENCOUNTER 2021-06-30 11:23 | Outpatient (REF) | payer OTHER, SELFPAY ==
[2021-06-30 12:12] LABS: Estimated Average Glucose 197 mg/dL; Hemoglobin A1c % 8.5 %
[2021-06-30 12:24] LABS: Alanine Aminotransferase 56 U/L (0-40); Albumin Level 4.3 g/dL (3.5-5.0); Alkaline Phosphatase 176 U/L (39-117); Anion Gap 13 (12-20); Aspartate Amino Transferase 24 U/L (5-37); Bilirubin Total 0.3 mg/dL (0.0-1.0); Blood Urea Nitrogen 47 mg/dL (9-16); Calcium 10.5 mg/dL (8.4-10.2); Carbon Dioxide 30 mmol/L (22-29); Chloride 97 mmol/L (96-108); Cholesterol 311 mg/dL; Estimated Glomerular Filt Rate 24; Glucose Fasting 119 mg/dL (60-99); HDL Cholesterol 29 mg/dL; Potassium 4.7 mmol/L (3.3-5.1); Sodium 135 mmol/L (135-145); Total Protein 8.1 g/dL (6.5-8.0); Triglycerides 950 mg/dL
[2021-06-30 12:41] LABS: Vitamin D 25-OH Total 36.9 ng/mL (>30)
[2021-06-30 13:48] LABS: Creatinine Urine 97.17 mg/dL; Microalbum/Creatinine Ratio Ur 500.1 ug/mg cr
[2021-07-01 07:11] LABS: LDL Cholesterol Direct 72 mg/dL (<100)
== END 2021-06-30 11:24 | disposition home or self-care (01) ==
LOC: HO.LAB 11:23
PROVIDERS: Absent Provider Internal Medicine; PCP Internal Medicine; Visit Provider Nurse Practitioner Gerontology
DX: Z00.00 Encounter for general adult medical examination without abnormal findings (principal); E11.69 Type 2 diabetes mellitus with other specified complication; E66.9 Obesity, unspecified; E55.9 Vitamin D deficiency, unspecified
CPT/HCPCS: 36415; 80053; 80061; 82043; 82306; 83036; 83721; 99211

== ENCOUNTER → 2021-07-25 14:40 | Outpatient (BNVA) | payer OTHER, SELFPAY | PROVIDERS: PCP Internal Medicine; Visit Provider Dietitian, Registered | DX: E11.65 Type 2 diabetes mellitus with hyperglycemia (principal); E11.22 Type 2 diabetes mellitus with diabetic chronic kidney disease; N18.30 Chronic kidney disease, stage 3 unspecified; Z71.3 Dietary counseling and surveillance | CPT/HCPCS: 97803 ==

== ENCOUNTER → 2021-08-11 13:43 | Outpatient (BNVA) | payer OTHER, SELFPAY | PROVIDERS: PCP Internal Medicine; Visit Provider Nurse Practitioner Gerontology | DX: E11.65 Type 2 diabetes mellitus with hyperglycemia (principal); E11.21 Type 2 diabetes mellitus with diabetic nephropathy; E11.42 Type 2 diabetes mellitus with diabetic polyneuropathy; E78.5 Hyperlipidemia, unspecified; E66.9 Obesity, unspecified; E55.9 Vitamin D deficiency, unspecified; R00.0 Tachycardia, unspecified; I10 Essential (primary) hypertension; Z68.32 Body mass index [BMI] 32.0-32.9, adult; Z79.4 Long term (current) use of insulin | CPT/HCPCS: 82947; 99212 ==

== ENCOUNTER 2021-09-21 10:38 | Outpatient (REF) | payer OTHER, SELFPAY ==
[2021-09-21 12:08] LABS: Creatinine Urine 59.63 mg/dL; Microalbum/Creatinine Ratio Ur 742.9 ug/mg cr
[2021-09-21 12:25] LABS: Vitamin D 25-OH Total 32.4 ng/mL (>30)
[2021-09-21 12:28] LABS: Alanine Aminotransferase 162 U/L (0-40); Albumin Level 4.3 g/dL (3.5-5.0); Alkaline Phosphatase 191 U/L (39-117); Anion Gap 14 (12-20); Aspartate Amino Transferase 56 U/L (5-37); Bilirubin Total 0.5 mg/dL (0.0-1.0); Blood Urea Nitrogen 47 mg/dL (9-16); Calcium 9.7 mg/dL (8.4-10.2); Carbon Dioxide 29 mmol/L (22-29); Chloride 100 mmol/L (96-108); Cholesterol 336 mg/dL; Estimated Glomerular Filt Rate 21; Glucose Fasting 193 mg/dL (60-99); HDL Cholesterol 44 mg/dL; LDL Cholesterol Calculated 215 mg/dl; Potassium 5.1 mmol/L (3.3-5.1); Sodium 138 mmol/L (135-145); Total Protein 7.9 g/dL (6.5-8.0); Triglycerides 386 mg/dL
[2021-09-23 09:01] LABS: LDL Cholesterol Direct 175 mg/dL (<100)
== END 2021-09-21 10:39 | disposition home or self-care (01) ==
LOC: HO.LAB 10:38
PROVIDERS: PCP Internal Medicine; Visit Provider Nurse Practitioner Gerontology
DX: E11.65 Type 2 diabetes mellitus with hyperglycemia (principal); E55.9 Vitamin D deficiency, unspecified
CPT/HCPCS: 36415; 80053; 80061; 82043; 82306; 83721

== ENCOUNTER → 2021-10-12 13:19 | Outpatient (BNVA) | payer OTHER, SELFPAY | PROVIDERS: PCP Internal Medicine; Visit Provider Registered Nurse Diabetes Educator | DX: E11.69 Type 2 diabetes mellitus with other specified complication (principal); E66.9 Obesity, unspecified | CPT/HCPCS: 99211 ==

== ENCOUNTER → 2021-10-24 13:06 | Outpatient (BNVA) | payer OTHER, SELFPAY | PROVIDERS: PCP Internal Medicine; Visit Provider Dietitian, Registered | DX: E11.65 Type 2 diabetes mellitus with hyperglycemia (principal); E11.22 Type 2 diabetes mellitus with diabetic chronic kidney disease; N18.30 Chronic kidney disease, stage 3 unspecified; Z71.3 Dietary counseling and surveillance | CPT/HCPCS: 97803 ==

== ENCOUNTER → 2021-10-30 13:27 | Outpatient (BNVA) | payer OTHER, SELFPAY | PROVIDERS: PCP Internal Medicine; Referring Provider Internal Medicine; Visit Provider Internal Medicine Cardiovascular Disease | DX: R00.0 Tachycardia, unspecified (principal) | CPT/HCPCS: 93005; 99202 ==

== ENCOUNTER 2021-11-23 13:32 | Outpatient (REF) | payer OTHER, SELFPAY | END 2021-11-23 13:33 | disposition home or self-care (01) | LOC: HO.LAB 13:32 | PROVIDERS: Visit Provider Internal Medicine | DX: Z13.89 Encounter for screening for other disorder (principal) ==

== ENCOUNTER → 2021-11-29 11:48 | Outpatient (BNVA) | payer OTHER, SELFPAY | PROVIDERS: PCP Internal Medicine; Visit Provider Registered Nurse Diabetes Educator | DX: E11.69 Type 2 diabetes mellitus with other specified complication (principal); E66.9 Obesity, unspecified; E11.22 Type 2 diabetes mellitus with diabetic chronic kidney disease; N18.30 Chronic kidney disease, stage 3 unspecified; E11.40 Type 2 diabetes mellitus with diabetic neuropathy, unspecified; Z79.4 Long term (current) use of insulin | CPT/HCPCS: 99211 ==

== ENCOUNTER → 2021-12-25 14:53 | Outpatient (REF) | payer OTHER, SELFPAY ==
--- NOTE | 2021-12-25 14:57 | CA_ITS ---
Transthoracic Echocardiogram Patient (Last, First, Middle): Larry Dias V Gender: Male Date of : 1965 Age: 56 Procedure Date: 12/25/2021 Procedure Type: Transthoracic Echocardiogram Location: OP Height: 172.72 cm Weight: 104.33 kg BSA: 2.17 m2 Heart Rate: 95 bpm BP: 158 / 62 mmHg Tooling Supervisor: NICHOLAS Referring MD: Handy Collins MD Symptoms: R00.0 - Tachycardia, unspecified Study Quality: Adequate w contrast ECG Rhythm: Sinus Conclusions: - The left ventricular systolic function is normal. The calculated ejection fraction is 57% by biplane method. - In some views, there is suggestion of mild basal inferior hypokinesis. - Diminished LV peak GLS at 12.4%. - No obvious valvular pathology seen on this study. Findings Procedure Information Contrast agent, definity, is being given per protocol without apparent complications. Left Ventricle Normal left ventricular cavity size. The left ventricular systolic function is normal. The calculated ejection fraction is 57% by biplane method. Diastolic function is normal for age. There is mild septal and mild basal asymmetric hypertrophy. Diminished LV peak GLS at 12.4%. In some views, there is suggestion of mild basal inferior hypokinesis. Atria Both atria are normal in size. Aortic Valve There is a normal trileaflet aortic valve. There is no aortic valve stenosis. There is no aortic valve regurgitation. Mitral Valve The mitral valve appears normal. There is no mitral valve regurgitation. There is no mitral valve stenosis. Pulmonic Valve The pulmonic valve is likely normal. Tricuspid Valve Normal tricuspid valve structure. There is trace tricuspid valve regurgitation. There is no evidence of pulmonary hypertension. Great Vessels The asc aorta is normal in size. Venous The inferior vena cava is normal in size and collapses greater than 50% with inspiration. Pericardium/Pleural There is no evidence of pericardial effusion. Prior Study Comparison Changes noted compared to prior study dated: 03/17/2016. see comment on wall motion. Recommendations, Care & Conclusions No obvious valvular pathology seen on this study. Measurements 2D Linear Measurements IVSd: 1.07 0.6-0.9/0.6-1.0 cm LVIDd: 4.07 3.9-5.3/4.2-5.9 cm LVIDd Index: 1.88 2.4-3.2/2.2-3.1 cm/m2 LVIDs: 2.96 2.0-3.6 cm LVPWd: 0.78 0.7-1.1 cm LA Diam: 3.40 2.7-3.8/3.0-4.0 cm LAIDs Index: 1.57 1.5-2.3 cm/m2 LV Mass: 145.33 67-162/88-224 g LV Mass Index: 66.97 43-95/49-115 g/m2 LVOT Diam: 2.30 3.0+(-)1.3 cm 2D Systolic Function EF 4C: 49.40 >55% EF 2C: 59.50 >55% EF BiP: 56.50 >55% Mitral Valve MV Pk E: 0.69 MV PK A: 0.81 MV Decel Time: 161.00 E/A: 0.80 E'Lateral: 8.70 E'Medial: 6.42 E/E' Med: 10.70 E/E' Lat: 7.90 PHT: 47.00 MVA PHT: 4.68 Decel Calhoun: 4.25 Aortic Valve AoV Pk Adrian: 1.52 AoV Mn Adrian: 1.05 AoV VTI: 0.27 AoV Pk Grad: 9.00 Aov Mn Grad: 5.00 HAYLIE Cont.VTI: 3.06 LVOT LVOT Pk Adrian: 1.13 LVOT Mn Adrian: 0.83 LVOT VTI: 0.20 LVOT Pk Grad: 5.00 LVOT Mn Grad: 3.00 LVOT Diam: 2.30 LVOT Area: 4.15 Diastolic Function MV Pk E: 0.69 MV Pk A: 0.81 E/A: 0.80 E'Medial: 6.42 E/E' Med: 10.70 E' Laterial: 8.70 E/E' Lat: 7.90 Right Ventricle TAPSE (mm): 16.60 TVS' Adrian: 8.27 Tricuspid Valve RA Press: 8.00 Great Vessels Aorta Sinus of Valsalva: 3.50 2.0-3.5 cm Ao Asc: 2.90 2.1-3.4 cm Pulmonary Veins Pulm Vein S/D 1.10 Pulmonary Valve PV Pk Adrian: 1.32 Peak PV Grad: 7.00 Updated in Other Vendor System with Status of Final Freedom ePdroza MD electronically signed on 12/26/2021 8:43:28 AM with status of Final
== END ==
LOC: HO.CARD 14:53
PROVIDERS: PCP Internal Medicine; Visit Provider Internal Medicine Cardiovascular Disease
DX: R00.0 Tachycardia, unspecified (principal)
CPT/HCPCS: 93306; 93356; Q9957

== ENCOUNTER 2021-12-27 14:21 | Outpatient (REF) | payer OTHER, SELFPAY ==
--- NOTE | ~2021-12-27 | XR_ITS ---
EXAMINATION: XR KNEE, LEFT CLINICAL INFORMATION: Left knee pain. COMPARISON: Left knee radiographs dated 06/09/2021. TECHNIQUE: AP and lateral views of the left knee. FINDINGS: Mild medial compartment joint space narrowing. Tiny tricompartmental marginal osteophytes. No osseous erosion. No fracture or dislocation. Trace joint effusion. Atherosclerotic calcifications. XR/XR knee LT 2V IMPRESSION: Mild tricompartmental osteoarthritis and trace joint effusion, similar when compared to the prior radiographs.
== END 2021-12-27 14:22 | disposition home or self-care (01) ==
LOC: HO.XRAY 14:21
PROVIDERS: PCP Internal Medicine; Visit Provider Internal Medicine
DX: M25.562 Pain in left knee (principal)
CPT/HCPCS: 73560

== ENCOUNTER 2021-12-29 12:54 | Outpatient (REF) | payer OTHER, SELFPAY ==
[2021-12-29 14:45] LABS: Estimated Average Glucose 183 mg/dL
[2021-12-31 23:26] LABS: LDL Cholesterol Direct 171 mg/dL (<100)
== END 2021-12-29 12:55 | disposition home or self-care (01) ==
LOC: HO.LAB 12:54
PROVIDERS: Absent Provider Nurse Practitioner Gerontology; Visit Provider Internal Medicine
DX: E11.65 Type 2 diabetes mellitus with hyperglycemia (principal); E11.69 Type 2 diabetes mellitus with other specified complication; E66.9 Obesity, unspecified
CPT/HCPCS: 36415; 83036; 83721; 99211

== ENCOUNTER → 2022-01-12 13:46 | Outpatient (REF) | payer OTHER, SELFPAY ==
--- NOTE | 2022-01-12 13:49 | HM_ITS ---
REQUESTING PHYSICIAN: Dr. Collins. TEST PERFORMED: Cardiac event monitoring. INDICATION: Tachycardia. ENROLLMENT PERIOD: 01/22/2022, to 01/29/2022; 17 days. FINDINGS: In the above monitoring period, underlying rhythm is sinus. The available sample rate is at 105 per min. No further information available. CONCLUSION: Cardiac event monitoring showing underlying sinus tachycardia at 105 per min. However, not clear if it is persistent tachycardia as no further information is available. MD NEERU Bonilla/ELVA / [phone] MTDD
== END ==
LOC: HO.CARD 13:46
PROVIDERS: PCP Internal Medicine; Visit Provider Internal Medicine Cardiovascular Disease
DX: R00.0 Tachycardia, unspecified (principal)
CPT/HCPCS: 93270

== ENCOUNTER → 2022-01-23 13:29 | Outpatient (BNVA) | payer OTHER, SELFPAY | PROVIDERS: PCP Internal Medicine; Visit Provider Dietitian, Registered | DX: E11.65 Type 2 diabetes mellitus with hyperglycemia (principal); E11.22 Type 2 diabetes mellitus with diabetic chronic kidney disease; I12.9 Hypertensive chronic kidney disease with stage 1 through stage 4 chronic kidney disease, or unspecified chronic kidney disease; N18.30 Chronic kidney disease, stage 3 unspecified | CPT/HCPCS: 97803 ==

== ENCOUNTER → 2022-01-24 12:58 | Outpatient (BNVA) | payer OTHER, SELFPAY | PROVIDERS: PCP Internal Medicine; Visit Provider Nurse Practitioner | DX: K59.04 Chronic idiopathic constipation (principal); K21.9 Gastro-esophageal reflux disease without esophagitis | CPT/HCPCS: 99212 ==

== ENCOUNTER 2022-02-20 14:42 | Outpatient (REF) | payer OTHER, SELFPAY ==
[2022-02-20 15:43] LABS: Total Volume 24 Hour Urine 3000 mL
[2022-02-20 18:17] LABS: Creatinine, 24Hr Urine 1.6 G/Day (1.0-2.0); Creatinine, mg/dL 54.17
== END 2022-02-20 14:43 | disposition home or self-care (01) ==
LOC: HO.LNP 14:42
PROVIDERS: Visit Provider Internal Medicine Hypertension Specialist
DX: N18.4 Chronic kidney disease, stage 4 (severe) (principal)
CPT/HCPCS: 82570

== ENCOUNTER → 2022-03-06 12:52 | Outpatient (BNVA) | payer OTHER, SELFPAY | PROVIDERS: PCP Internal Medicine; Visit Provider Nurse Practitioner | DX: K59.04 Chronic idiopathic constipation (principal); K31.84 Gastroparesis; K21.9 Gastro-esophageal reflux disease without esophagitis; R14.0 Abdominal distension (gaseous); Z79.899 Other long term (current) drug therapy | CPT/HCPCS: 99212 ==

== ENCOUNTER → 2022-03-30 11:49 | Outpatient (BNVA) | payer OTHER, SELFPAY | PROVIDERS: PCP Internal Medicine; Visit Provider Registered Nurse Diabetes Educator | DX: E11.9 Type 2 diabetes mellitus without complications (principal); I10 Essential (primary) hypertension | CPT/HCPCS: 99211 ==

== ENCOUNTER → 2022-04-16 13:39 | Outpatient (BNVA) | payer OTHER, SELFPAY | PROVIDERS: PCP Internal Medicine; Referring Provider Internal Medicine; Visit Provider Internal Medicine Cardiovascular Disease | DX: I10 Essential (primary) hypertension (principal); R00.0 Tachycardia, unspecified | CPT/HCPCS: 99212 ==

== ENCOUNTER → 2022-05-01 12:49 | Outpatient (BNVA) | payer OTHER, SELFPAY | PROVIDERS: PCP Internal Medicine; Visit Provider Nurse Practitioner | DX: K59.04 Chronic idiopathic constipation (principal); K31.84 Gastroparesis; K21.9 Gastro-esophageal reflux disease without esophagitis | CPT/HCPCS: 99212 ==

== ENCOUNTER 2022-05-16 12:48 | Observation (INO) | payer OTHER, SELFPAY ==
[2022-05-16] VITALS (12 sets, daily range): BP systolic 130–190; BP diastolic 62–80; PULSE 75–87; RESP 16–20; TEMP 36.6–37.3; O2SAT 92–98; BMI 34.0
--- NOTE | ~2022-05-16 | CT_ITS ---
EXAMINATION: CT ABDOMEN AND PELVIS WITHOUT CONTRAST CLINICAL INFORMATION: Abdominal pain and jaundice COMPARISON: MRCP 08/01/[address] abdomen pelvis 07/20/2020 TECHNIQUE: Multidetector volumetric imaging was performed from the superior aspect of the liver through the pubic symphysis. Sagittal and coronal reformatted images were obtained on the technologist's workstation. This CT examination was performed using dose optimization techniques as appropriate, variously including the following: *Automated exposure control *Adjustment of mA and/or kV according to patient size (this includes techniques or standardized protocols for targeted exams where dose is matched to indication/reason for exam; i.e. extremities or head) *Use of iterative reconstruction technique DLP: 770 mGy-cm FINDINGS: LUNG BASES: There is increased reticulation and some tree-in-bud densities seen at the lung bases, right greater than left when compared to the 07/20/2020 study.. No pleural effusions. Heart size normal. A new small right pleural effusion is present. LIVER, GALLBLADDER, AND BILIARY TREE: The liver is upper limits of normal in size, with normal shape and attenuation. No focal hepatic lesion or biliary ductal dilatation is present. The gallbladder is once again noted to contain small layering gallstones without obvious pericholecystic inflammatory changes. PANCREAS: Unremarkable. SPLEEN: Unremarkable. ADRENAL GLANDS: Unremarkable. KIDNEYS AND URETERS: The kidneys are normal in size, shape, and attenuation. No hydronephrosis, hydroureter, or calculi seen. Nonspecific bilateral perinephric stranding. BLADDER: There is symmetric bladder wall thickening, slightly increased from prior but the bladder is less well distended. GASTROINTESTINAL TRACT: The small and large bowel are unremarkable. Moderate stool burden throughout the colon The appendix is unremarkable. ABDOMINAL WALL: No significant hernia is appreciated. LYMPH NODES: No retroperitoneal lymphadenopathy. VASCULAR: Unremarkable. PELVIC VISCERA: The prostate and seminal vesicles are unremarkable. OSSEOUS STRUCTURES: Unremarkable. CT/CT abdomen pelvis wo IV con IMPRESSION: 1. A cause for the patient's abdominal pain and jaundice has not been found. 2. Incidental note made of increased reticulation and tree-in-bud densities at the lung bases with a new small right pleural effusion and symmetric thickening of the bladder wall. Fleischner guidelines were followed.
--- NOTE | ~2022-05-16 | MR_ITS ---
EXAMINATION: MR ABDOMEN WITHOUT CONTRAST CLINICAL INFORMATION: Hepatitis, abdominal pain. COMPARISON: Abdominal ultrasound and CT both dated 05/16/2022, MRCP dated 08/01/2020. TECHNIQUE: MR abdomen is performed without gadolinium contrast. MRCP was also performed with 3-D reformatted images obtained on a separate workstation. FINDINGS: LUNG BASES: The visualized lung bases are unremarkable. LIVER, GALLBLADDER, AND BILIARY TREE: No hepatic abnormality. No intra or extrahepatic biliary ductal dilatation. Tiny gallstones near the gallbladder neck. No mural thickening or pericholecystic fluid. PANCREAS: Unremarkable. SPLEEN: Unremarkable. ADRENAL GLANDS: Unremarkable. KIDNEYS AND URETERS: The kidneys are normal in size and shape. No hydronephrosis. No perinephric stranding. GASTROINTESTINAL TRACT: The stomach, visualized small bowel and visualized large bowel are unremarkable. ABDOMINAL WALL: No significant hernia is appreciated. LYMPH NODES: No lymphadenopathy. VASCULAR: Unremarkable. PELVIS: Prominent distention of the visualized urinary bladder extending to the level the umbilicus without focal abnormality in the visualized portions. OSSEOUS STRUCTURES: Marrow signal normal. MR/MR MRCP IMPRESSION: 1. Cholelithiasis. No evidence for acute cholecystitis. Overall the appearances less pronounced compared to the previous studies. If pain persists or worsens, short-term follow-up with right upper quadrant abdominal ultrasound is recommended. 2. Significant distention of the urinary bladder without focal abnormality. This represents significant interval increase from the CT scan. Correlate with urine output. Pre and post void ultrasound evaluation of the urinary bladder may be of value.
--- NOTE | ~2022-05-16 | XR_ITS ---
EXAMINATION: XR CHEST CLINICAL INFORMATION: Pleural effusion. COMPARISON: Chest x-ray 07/20/2020 TECHNIQUE: Frontal view of the chest was obtained. 7:24 PM FINDINGS: Lung volume low. This is causing crowding of the bronchovascular markings. Allowing for the respiratory effort no significant pulmonary vascular congestion. No focal consolidation. No pleural effusion or pneumothorax. Heart size is normal. Cardiac mediastinal contours are normal. XR/XR chest 1V IMPRESSION: Low inspiratory effort. No acute abnormality of the chest.
--- NOTE | ~2022-05-16 | US_ITS ---
EXAMINATION: US ABDOMEN LIMITED CLINICAL INFORMATION: Right upper quadrant pain, jaundice. COMPARISON: CT abdomen/pelvis performed earlier today. TECHNIQUE: Real-time imaging of the right upper quadrant abdominal viscera. FINDINGS: PANCREAS: Normal. LIVER: The liver is normal in size. The liver contour is normal. Increased liver parenchymal echogenicity. No focal hepatic lesion. There is no intrahepatic biliary duct dilatation seen. GALLBLADDER: Cholelithiasis with gallbladder wall thickening. Trace amount of pericholecystic free fluid. Negative Pathak's sign. COMMON BILE DUCT: Normal in caliber measuring 0.3 cm in diameter. RIGHT KIDNEY: Normal. No hydronephrosis. No renal calculi or focal parenchymal lesions. The kidney measures 12.3 cm in maximum dimension. FREE FLUID: Incidentally noted small right pleural effusion. US/US abdomen limited IMPRESSION: 1. Cholelithiasis with gallbladder wall thickening and trace amount of pericholecystic free fluid, suggesting the presence of acute cholecystitis in the appropriate clinical setting. If indicated, correlation with a hepatobiliary nuclear medicine study could be obtained. 2. Increased liver parenchymal echogenicity is nonspecific and could be seen in the setting of hepatic steatosis or hepatocellular disease. 3. Small right pleural effusion.
--- NOTE | 2022-05-16 13:10 | ECG_ITS ---
Test Reason : DIZZINESS Blood Pressure : / mmHG Vent. Rate : 081 BPM Atrial Rate : 081 BPM P-R Int : 156 ms QRS Dur : 086 ms QT Int : 386 ms P-R-T Axes : 054 022 048 degrees QTc Int : 448 ms Normal sinus rhythm Nonspecific T wave abnormality Abnormal ECG When compared with ECG of 01-AUG-2020 20:07, No significant change was found Referred By: Susi Lew Electronically Signed By:Wicho Lawson
--- NOTE | 2022-05-16 13:11 | ED_ITS ---
HPI - General Adult General Chief complaint: Dizziness Stated complaint: WEAK,H/O KIDNEY ISSUE W/YELLOW SKIN/EYES PER EMS Time Seen by Provider: 05/16/22 13:03 Source: patient Mode of arrival: EMS History of Present Illness HPI narrative: 56-year-old male with MDD, CKD, DM, vertigo, hypertension presents via EMS for 4 days of ?dizziness? that has been associated with chills and abdominal discomfort without dysuria, he denies any headache, nausea, vomiting, chest pain/palpitations but does state he has had an unsteady gait without changes in his medications other than blood pressure medication and states his blood sugars have been ?good?. Patient states he has continued to pass flatus. Patient is speaking slowly Related Data Home Medications Medication Instructions Recorded Confirmed triamcinolone acetonide 0.1 % 0.1 applic topical BID 02/02/20 04/16/22 topical cream ketorolac 0.5 % eye drops 0 drp ophthalmic (eye) 07/26/21 04/16/22 venlafaxine 150 mg 150 mg PO DAILY 10/30/21 04/16/22 capsule,extended release 24 hr multivitamin with folic acid 400 1 tab PO DAILY 03/06/22 04/16/22 mcg tablet (Tab-A-George) pen needle, diabetic 32 gauge x #50 ea 03/06/22 04/16/2206/14 (Ultracare Pen Needle) Previous Rx's Medication Instructions Recorded atorvastatin 10 mg tablet 10 mg PO DAILY #90 tabs 10/24/20 clonazepam 0.5 mg tablet 0.5 mg PO TID PRN anxiety #90 tabs 01/31/21 alcohol swabs 1 pad topical DIRECTED #240 ea 03/08/21 trazodone 150 mg tablet 150 mg PO BEDTIME #90 tabs 03/27/21 lancets 28 gauge (FreeStyle #150 ea 05/12/21 Lancets) miscellaneous medical supply #1 ea 05/25/21 (Blood Pressure Cuff) meclizine 50 mg tablet 50 mg PO .COMPLEX #60 tabs 07/26/21 pen needle, diabetic 32 gauge x #400 ea 08/11/21 (BD Kacey 2nd Gen Pen Needle) gabapentin 300 mg capsule 300 mg PO BID #60 caps 08/25/21 cholecalciferol (vitamin D3) 50 50 mcg PO DAILY #30 caps 08/30/21 mcg (2,000 unit) capsule (D3-2000) bupropion HCl 150 mg 24 hr tablet, 150 mg PO BID #60 tabs 09/04/21 extended release omega-3 acid ethyl esters 1 gram 2 cap PO BID 30 days #120 caps 09/04/21 capsule meclizine 25 mg tablet 25 mg PO Q6-8H PRN Dizziness #90 09/12/21 tabs hydrochlorothiazide 50 mg tablet 50 mg PO DAILY #90 tabs 09/25/21 insulin aspart U-100 100 unit/mL 12 unit (0.12 mL) subcut TID 30 10/19/21 (3 mL) subcutaneous pen (Novolog days #15 mL FlexPen U-100 Insulin aspart) ondansetron HCl 4 mg tablet 4 mg PO Q6-8H PRN Nausea #60 tabs 01/11/22 blood sugar diagnostic (FreeStyle 1 strip miscellaneous QID 90 days 03/20/22 Lite Strips) #450 strips insulin glargine U-300 conc 300 66 unit (0.22 mL) subcut DAILY 30 03/28/22 unit/mL (3 mL) subcutaneous pen days #6.6 mL (Toujeo Max U-300 SoloStar) flash glucose sensor (FreeStyle #1 ea 04/10/22 John 14 Day Sensor kit) amlodipine 10 mg tablet 10 mg PO DAILY #30 tabs 04/11/22 furosemide 20 mg tablet (Lasix) 20 mg PO DAILY #60 tabs 04/16/22 labetalol 200 mg tablet 200 mg PO BID #60 tabs 04/16/22 blood pressure monitor (Blood #1 ea 04/24/22 Pressure Kit) losartan 50 mg tablet 50 mg PO DAILY #90 tabs 04/25/22 famotidine 20 mg tablet 20 mg PO BID #180 tabs 05/01/22 metoclopramide HCl 5 mg tablet 5 mg PO QID #360 tabs 05/01/22 prucalopride 2 mg tablet 2 mg PO DAILY #30 tabs 05/01/22 (Motegrity) simethicone 180 mg capsule 180 mg PO TID #90 caps 05/01/22 linagliptin 5 mg tablet (Tradjenta) 5 mg PO DAILY 30 days #30 tabs 05/16/22 Allergies Allergy/AdvReac Type Severity Reaction Status Date / Time cephalexin [From KEFLEX] Allergy Mild ITCHY Verified 05/09/22 12:52 THROAT lisinopril [LISINOPRIL] Allergy Unknown SWELLING Verified 05/09/22 12:52 COUGH Review of Systems Review of Systems: Pertinent positives and negatives as stated in HPI [facility] Past Medical History Source: nursing notes reviewed Medical History Anxiety Chronic hyperglycemia CKD (chronic kidney disease) stage 3, GFR 30-59 ml/min Depression Diabetes Diabetes type 2, uncontrolled Diabetic nephropathy associated with type 2 diabetes mellitus Diabetic neuropathy associated with type 2 diabetes mellitus Dyslipidemia Essential hypertension GERD (gastroesophageal reflux disease) High cholesterol Hypercalcemia Hyperlipidemia Hypertension 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 Social History Social History Household Members: Family Household Members Other:: SISTER Housing: Apartment Do you presently have visiting nurse or other home services: Yes Alcohol intake: never Patient Tobacco Use Status: Never used Tobacco Smoked in Last 30 Days: No e-Cigarette/Vaping Use: Never Used Second Hand Smoke Exposure: Yes (HISTORY OF SECOND HAND SMOKE EXPOSURE) Advance Directives: Yes Advance Directives on File: Yes Advance Directives Date on File: 05/05/20 service: No Current occupational status: disabled Current occupation: right handed Cognitive needs: No Hearing needs: No Vision needs: No Physical Exam ED Vital Signs: Vital Signs - 24 hr 05/16/22 13:05 05/16/22 13:47 05/16/22 14:04 Temperature 99.1 F 99.2 F Pulse Rate 83 82 79 Respiratory Rate 17 17 Blood Pressure 150/73 H 152/74 H 149/65 H Pulse Oximetry 96 94 Oxygen Delivery Method Room Air Room Air 05/16/22 14:05 05/16/22 14:06 05/16/22 14:11 Temperature 99.1 F Pulse Rate 83 85 82 Respiratory Rate 20 Blood Pressure 134/62 130/64 130/64 Pulse Oximetry 92 Oxygen Delivery Method Room Air 05/16/22 15:49 Temperature 97.9 F Pulse Rate 80 Respiratory Rate 16 Blood Pressure 140/71 H Pulse Oximetry 93 Oxygen Delivery Method Room Air BMI result Body Mass Index 34.0 VITAL SIGNS: Reviewed. GENERAL: Well developed, well nourished, in no acute distress. HEAD: Normocephalic/atraumatic EYES: PERRLA, EOMI, patient has noted blepharitis, right greater than left, non erythematous, no nystagmus, ? Scleral icterus EARS: Ext canals without abnormality NOSE: Nares patent bilateral OROPHARYNX: no oral lesions noted, posterior pharynx clear NECK: Supple, no adenopathy LUNGS: Normal breath sounds. No adventitious sounds or accessory muscle use. SpO2<96> CARDIOVASCULAR: Regular rate and rhythm without noted murmurs, no JVD or lower extremity edema. ABDOMEN: Soft, non-tender, non-distended with bowel sounds. MUSCULOSKELETAL: No tenderness, deformities, or effusions noted on gross inspection. EXTREMITIES: No cyanosis, clubbing or edema. SKIN: Inspection of the skin reveals no rashes NEUROLOGIC: Alert and oriented x 4. Strength and sensation to light touch were grossly intact x 4, no facial asymmetry, no pronator drift, cranial nerves 2-12 are grossly intact. Medications Administered Discontinued Medications Generic Name Dose Route Start Last Admin Trade Name Freq PRN Reason Stop Dose Admin Sodium Chloride 1,000 mls @ 999 mls/hr 05/16/22 15:00 05/16/22 16:35 Ns IV 05/16/22 16:00 Infused .Q1H1M RADHA Infusion Sodium Chloride 1,000 mls @ 999 mls/hr 05/16/22 16:30 05/16/22 18:26 Ns IV 05/16/22 17:30 Infused .Q1H1M RADHA Infusion Medical Decision Making Medical Decision Making [facility] Narrative: 56-year-old male with complaints of 4 days of dizziness and difficulty ambulating without any other neurologic symptoms and reports associated symptoms of chills and abdominal discomfort. He is noted to be speaking very slowly but denies taking any additional medications. 1456: I reviewed all investigations and patient has a new hyperbilirubinemia as well as anemia. 180: After I reviewed US and discussed with Dr. John who agrees that this is less likely acute cholecystitis, but will order blood cultures. So, will hold off on antibiotics at this time as patient has no leukocytosis, is not febrile. Differential Diagnosis Differential Diagnoses: The differential diagnosis associated with the presentation includes Please see the discussion above Consult Healthcare Provider Management of the patient was discussed with: Shutdown Coordinator 1810: Consulted general surgery for acute cholecystitis. Dr John does not feel this is GB related and recommends further evaluation with medical w/u and MRCP. 1829: Consulted with Dr. Abel, gastroenterology. Awaiting call back. 1914: I discussed with the inpatient hospitalist who accepts admission and communicated that patient would need MRCP, I have been informed that they will also reach out to Dr. Abel (gastroenterology). Lab Data Please see the discussion above 05/16/22 13:43 05/16/22 13:43 Labs: Lab Results 05/16/22 05/16/22 05/16/22 Range/Units 13:36 13:43 13:43 WBC 10.8 (4.8-10.8) X10*3/uL RBC 3.07 L D (4.60-5.80) X10*6/uL Hgb 9.1 L D (14.0-18.0) g/dl Hct 26.0 L D (42.0-52.0) % MCV 84.7 (80.0-98.0) fL MCH 29.6 (27.0-33.0) pg MCHC 35.0 (31.0-36.0) g/dl RDW 12.5 (11.0-16.0) % Plt Count 192 D (160-400) X10*3/uL MPV 10.5 (9.4-12.4) fL Immature Gran % (Auto) 0.5 H (0.0-0.4) % Neut % (Auto) 80.2 H (45-73) % Lymph % (Auto) 6.5 L (20-40) % [place] % (Auto) 11.8 H (2-11) % Eos % (Auto) 0.6 (0-4) % Baso % (Auto) 0.4 (0-2) % Lymph # (Auto) 0.7 L (1.2-4.9) X10*3/uL [place] # (Auto) 1.3 H (0.1-1.2) X10*3/uL Eos # (Auto) 0.1 (0.0-0.4) X10*3/uL Baso # (Auto) 0.0 (0.0-0.2) X10*3/uL Abs Immat Gran (auto) 0.05 H (0.00-0.03) X10*3/uL Absolute Neuts (auto) 8.7 H (2.0-8.3) x10*3/uL Absolute Nucleated RBC 0.000 (0.0-0.012) X10*3/uL Nucleated RBC % (auto) 0.0 (0.0-0.2) /100WBC PT 17.0 H (10.0-13.1) SEC INR 1.5 H (0.9-1.1) Sodium (135-145) mmol/L Potassium (3.3-5.1) mmol/L Chloride (96-108) mmol/L Carbon Dioxide (22-29) mmol/L Anion Gap (12-20) BUN (9-16) mg/dL Creatinine (0.5-1.4) mg/dL Estim Creat Clear Calc Estimated GFR Random Glucose (60-115) mg/dL Calcium (8.4-10.2) mg/dL Total Bilirubin (0.0-1.0) mg/dL AST (5-37) U/L ALT (0-40) U/L Alkaline Phosphatase (39-117) U/L Troponin I High Sens (<3.5-35.0) ng/L Total Protein (6.5-8.0) g/dL Albumin (3.5-5.0) g/dL Lipase (8-78) U/L Urine Color Urine Appearance Urine pH (5.0-9.0) Ur Specific [place] (1.005-1.025) Urine Protein (Neg-Trace) mg/dL Urine Glucose (UA) (Negative) mg/dL Urine Ketones (Negative) mg/dL Urine Blood (Negative) Urine Nitrite (Negative) Ur Leukocyte Esterase (Negative) Urine RBC (0-2) /HPF Urine WBC (0-5) /HPF Ur Squamous Epith Cells (0-2) /HPF Urine Bacteria (None Seen) Hyaline Casts (0-2) /LPF Stool Occult Blood (NEGATIVE) Acetaminophen (<30) mcg/mL Acetone, Qual (Negative) Influenza Type A (PCR) NEGATIVE (Negative) Influenza Type B (PCR) NEGATIVE (Negative) RSV RNA Qual (PCR) NEGATIVE (Negative) SARS-CoV-2 RNA (RT-PCR) NEGATIVE (Negative) 05/16/22 05/16/22 05/16/22 Range/Units 13:43 13:43 13:43 WBC (4.8-10.8) X10*3/uL RBC (4.60-5.80) X10*6/uL Hgb (14.0-18.0) g/dl Hct (42.0-52.0) % MCV (80.0-98.0) fL MCH (27.0-33.0) pg MCHC (31.0-36.0) g/dl RDW (11.0-16.0) % Plt Count (160-400) X10*3/uL MPV (9.4-12.4) fL Immature Gran % (Auto) (0.0-0.4) % Neut % (Auto) (45-73) % Lymph % (Auto) (20-40) % [place] % (Auto) (2-11) % Eos % (Auto) (0-4) % Baso % (Auto) (0-2) % Lymph # (Auto) (1.2-4.9) X10*3/uL [place] # (Auto) (0.1-1.2) X10*3/uL Eos # (Auto) (0.0-0.4) X10*3/uL Baso # (Auto) (0.0-0.2) X10*3/uL Abs Immat Gran (auto) (0.00-0.03) X10*3/uL Absolute Neuts (auto) (2.0-8.3) x10*3/uL Absolute Nucleated RBC (0.0-0.012) X10*3/uL Nucleated RBC % (auto) (0.0-0.2) /100WBC PT (10.0-13.1) SEC INR (0.9-1.1) Sodium 129 L (135-145) mmol/L Potassium 4.0 D (3.3-5.1) mmol/L Chloride 97 (96-108) mmol/L Carbon Dioxide 19 L (22-29) mmol/L Anion Gap 17 (12-20) BUN 48 H (9-16) mg/dL Creatinine 3.13 H (0.5-1.4) mg/dL Estim Creat Clear Calc 31.3 Estimated GFR 21 Random Glucose 165 H (60-115) mg/dL Calcium 8.5 D (8.4-10.2) mg/dL Total Bilirubin 4.2 H (0.0-1.0) mg/dL AST 74 H (5-37) U/L ALT 191 H (0-40) U/L Alkaline Phosphatase 226 H (39-117) U/L Troponin I High Sens 9.6 (<3.5-35.0) ng/L Total Protein 6.2 L (6.5-8.0) g/dL Albumin 3.4 L (3.5-5.0) g/dL Lipase 40 (8-78) U/L Urine Color Urine Appearance Urine pH (5.0-9.0) Ur Specific [place] (1.005-1.025) Urine Protein (Neg-Trace) mg/dL Urine Glucose (UA) (Negative) mg/dL Urine Ketones (Negative) mg/dL Urine Blood (Negative) Urine Nitrite (Negative) Ur Leukocyte Esterase (Negative) Urine RBC (0-2) /HPF Urine WBC (0-5) /HPF Ur Squamous Epith Cells (0-2) /HPF Urine Bacteria (None Seen) Hyaline Casts (0-2) /LPF Stool Occult Blood (NEGATIVE) Acetaminophen < 17 (<30) mcg/mL Acetone, Qual Negative (Negative) Influenza Type A (PCR) (Negative) Influenza Type B (PCR) (Negative) RSV RNA Qual (PCR) (Negative) SARS-CoV-2 RNA (RT-PCR) (Negative) 05/16/22 05/16/22 Range/Units 14:34 15:36 WBC (4.8-10.8) X10*3/uL RBC (4.60-5.80) X10*6/uL Hgb (14.0-18.0) g/dl Hct (42.0-52.0) % MCV (80.0-98.0) fL MCH (27.0-33.0) pg MCHC (31.0-36.0) g/dl RDW (11.0-16.0) % Plt Count (160-400) X10*3/uL MPV (9.4-12.4) fL Immature Gran % (Auto) (0.0-0.4) % Neut % (Auto) (45-73) % Lymph % (Auto) (20-40) % [place] % (Auto) (2-11) % Eos % (Auto) (0-4) % Baso % (Auto) (0-2) % Lymph # (Auto) (1.2-4.9) X10*3/uL [place] # (Auto) (0.1-1.2) X10*3/uL Eos # (Auto) (0.0-0.4) X10*3/uL Baso # (Auto) (0.0-0.2) X10*3/uL Abs Immat Gran (auto) (0.00-0.03) X10*3/uL Absolute Neuts (auto) (2.0-8.3) x10*3/uL Absolute Nucleated RBC (0.0-0.012) X10*3/uL Nucleated RBC % (auto) (0.0-0.2) /100WBC PT (10.0-13.1) SEC INR (0.9-1.1) Sodium (135-145) mmol/L Potassium (3.3-5.1) mmol/L Chloride (96-108) mmol/L Carbon Dioxide (22-29) mmol/L Anion Gap (12-20) BUN (9-16) mg/dL Creatinine (0.5-1.4) mg/dL Estim Creat Clear Calc Estimated GFR Random Glucose (60-115) mg/dL Calcium (8.4-10.2) mg/dL Total Bilirubin (0.0-1.0) mg/dL AST (5-37) U/L ALT (0-40) U/L Alkaline Phosphatase (39-117) U/L Troponin I High Sens (<3.5-35.0) ng/L Total Protein (6.5-8.0) g/dL Albumin (3.5-5.0) g/dL Lipase (8-78) U/L Urine Color Dark Yellow Urine Appearance Clear Urine pH 6.0 (5.0-9.0) Ur Specific [place] 1.010 (1.005-1.025) Urine Protein 100 (2+) H (Neg-Trace) mg/dL Urine Glucose (UA) Negative (Negative) mg/dL Urine Ketones Negative (Negative) mg/dL Urine Blood Trace H (Negative) Urine Nitrite Negative (Negative) Ur Leukocyte Esterase Negative (Negative) Urine RBC 0-2 (0-2) /HPF Urine WBC 0-5 (0-5) /HPF Ur Squamous Epith Cells 0-2 (0-2) /HPF Urine Bacteria None Seen (None Seen) Hyaline Casts 0-2 (0-2) /LPF Stool Occult Blood NEGATIVE (NEGATIVE) Acetaminophen (<30) mcg/mL Acetone, Qual (Negative) Influenza Type A (PCR) (Negative) Influenza Type B (PCR) (Negative) RSV RNA Qual (PCR) (Negative) SARS-CoV-2 RNA (RT-PCR) (Negative) Independent Interpretation I performed an independent interpretation of an: EKG Interpretation: Normal sinus rhythm, HR-81, no STEMI, MD/QRS/QTC is within normal limits. Radiology Impression Radiologist Impression: My interpretation is in agreement with radiology's impression of the imaging study. External Record Review External record reviewed: Office record, Outpatient record and Prior outpatient labs Chronic Conditions Patient?s care impacted by: Diabetes Critical Care Time Critical Care Time Critical Care Time: Yes Total Critical Care Time: 45 Attestation: I personally attest to this time spent taking care of the patient. Discharge Plan Discharge Clinical Impression: Pleural effusion, right, Hepatitis Patient Disposition: Admitted As Inpatient Prescriptions: No Action atorvastatin 10 mg tablet 10 mg PO DAILY Qty: 90 8RF clonazepam 0.5 mg tablet 0.5 mg PO TID PRN (Reason: anxiety) Qty: 90 5RF alcohol swabs Pads, Medicated 1 pad topical DIRECTED Qty: 240 11RF trazodone 150 mg tablet 150 mg PO BEDTIME Qty: 90 8RF (DME) lancets [FreeStyle Lancets] 28 gauge misc See Rx Instructions .MEDSUPPLY Qty: 150 5RF Rx Instructions: 4 times a day gabapentin 300 mg capsule 300 mg PO BID Qty: 60 8RF cholecalciferol (vitamin D3) [D3-2000] 50 mcg (2,000 unit) capsule 50 mcg PO DAILY Qty: 30 11RF omega-3 acid ethyl esters 1 gram capsule 2 cap PO BID 30 Days Qty: 120 11RF bupropion HCl 150 mg tablet extended release 24 hr 150 mg PO BID Qty: 60 4RF meclizine 25 mg tablet 25 mg PO Q6-8H PRN (Reason: Dizziness) Qty: 90 8RF hydrochlorothiazide 50 mg tablet 50 mg PO DAILY Qty: 90 1RF insulin aspart U-100 [Novolog FlexPen U-100 Insulin] 100 unit/mL (3 mL) insulin pen 12 unit subcut TID 30 Days Qty: 15 6RF ondansetron HCl 4 mg tablet 4 mg PO Q6-8H PRN (Reason: Nausea) Qty: 60 3RF FreeStyle Lite Strips Strip 1 strip miscellaneous QID 90 Days Qty: 450 3RF Toujeo Max U-300 SoloStar 300 unit/mL (3 mL) insulin pen 66 unit subcut DAILY 30 Days Qty: 6.6 4RF Rx Instructions: in the morning (DME) FreeStyle John 14 Day Sensor Kit See Rx Instructions .Route Qty: 1 0RF Rx Instructions: As directed (DME) blood pressure monitor [Blood Pressure Kit] Kit See Rx Instructions .Route Qty: 1 0RF Rx Instructions: As directed losartan 50 mg tablet 50 mg PO DAILY Qty: 90 8RF Tradjenta 5 mg tablet 5 mg PO DAILY 30 Days Qty: 30 6RF venlafaxine 150 mg capsule,extended release 24hr 150 mg PO DAILY (DME) Blood Pressure Cuff Misc See Rx Instructions .Route Qty: 1 0RF Rx Instructions: As directed ketorolac 0.5 % drops 0 drp ophthalmic (eye) meclizine 50 mg tablet 50 mg PO .COMPLEX Qty: 60 1RF Rx Instructions: 50 mg PO q6 hours prn; amlodipine 10 mg tablet 10 mg PO DAILY Qty: 30 2RF triamcinolone acetonide 0.1 % cream 0.1 applic topical BID multivitamin with folic acid [Tab-A-George] 400 mcg tablet 1 tab PO DAILY (DME) pen needle, diabetic [Ultracare Pen Needle] 32 gauge x 3/16 needle See Rx Instructions .ROUTE .MEDSUPPLY Qty: 50 Rx Instructions: As directed famotidine 20 mg tablet 20 mg PO BID Qty: 180 8RF metoclopramide HCl 5 mg tablet 5 mg PO QID Qty: 360 2RF Motegrity 2 mg tablet 2 mg PO DAILY Qty: 30 6RF simethicone 180 mg capsule 180 mg PO TID Qty: 90 1RF furosemide [Lasix] 20 mg tablet 20 mg PO DAILY Qty: 60 8RF labetalol 200 mg tablet 200 mg PO BID Qty: 60 3RF (DME) pen needle, diabetic [BD Kacey 2nd Gen Pen Needle] 32 gauge x needle See Rx Instructions .MEDSUPPLY Qty: 400 6RF Rx Instructions: 5 times a day
[2022-05-16 13:48] LABS: MANUAL DIFF FLAG NO
[2022-05-16 13:54] LABS: INTERNATIONAL NORM RATIO 1.5 (0.9-1.1)
[2022-05-16 14:01] LABS: Acetone, serum QL Negative (Negative)
[2022-05-16 14:06] LABS: Alanine Aminotransferase 191 U/L (0-40); Albumin Level 3.4 g/dL (3.5-5.0); Alkaline Phosphatase 226 U/L (39-117); Anion Gap 17 (12-20); Aspartate Amino Transferase 74 U/L (5-37); Bilirubin Total 4.2 mg/dL (0.0-1.0); Blood Urea Nitrogen 48 mg/dL (9-16); Calcium 8.5 mg/dL (8.4-10.2); Carbon Dioxide 19 mmol/L (22-29); Chloride 97 mmol/L (96-108); Creatinine Clr Calc Pharmacy 31.3; Estimated Glomerular Filt Rate 21; Glucose Random 165 mg/dL (60-115); Sodium 129 mmol/L (135-145); Total Protein 6.2 g/dL (6.5-8.0)
[2022-05-16 14:10] LABS: Troponin-I High Sensitivity 9.6 ng/L (<3.5-35.0)
[2022-05-16 14:19] LABS: Basophils Percent Auto 0.4 % (0-2); Eosinophils Absolute Auto 0.1 X10*3/uL (0.0-0.4); Eosinophils Percent Auto 0.6 % (0-4); Hemoglobin 9.1 g/dl (14.0-18.0); Imm Gran Abs Auto 0.05 X10*3/uL (0.00-0.03); Imm Gran Pct Auto 0.5 % (0.0-0.4); Lymphocytes Absolute Auto 0.7 X10*3/uL (1.2-4.9); Lymphocytes Percent Auto 6.5 % (20-40); Mean Corpuscular Hemoglobin 29.6 pg (27.0-33.0); Mean Corpuscular Volume 84.7 fL (80.0-98.0); Mean Platelet Volume 10.5 fL (9.4-12.4); Monocytes Absolute Auto 1.3 X10*3/uL (0.1-1.2); Monocytes Percent Auto 11.8 % (2-11); Neutrophils Absolute Auto 8.7 x10*3/uL (2.0-8.3); Neutrophils Percent Auto 80.2 % (45-73); Platelet Count 192 X10*3/uL (160-400); Red Blood Count 3.07 X10*6/uL (4.60-5.80); Red Cell Distribution Width 12.5 % (11.0-16.0)
[2022-05-16 14:20] LABS: White Blood Count 10.8 X10*3/uL (4.8-10.8)
[2022-05-16 14:23] LABS: Influenza A PCR NEGATIVE (Negative); Influenza B PCR NEGATIVE (Negative); Resp Syncy Virus RNA Qual PCR NEGATIVE (Negative); SARS COV2 PCR INHOUSE NEGATIVE (Negative)
[2022-05-16 14:52] LABS: Appearance Urine Clear; Color Urine Dark Yellow; Glucose Urine UA Negative (Negative); Leukocyte Esterase Urine Negative (Negative); Nitrite Urine Negative (Negative); UMIC TRIGGER UACC YES; Urine Blood Trace (Negative); Urine Ketones Negative (Negative); Urine Protein 100 (2+) mg/dL (Neg-Trace)
[2022-05-16 15:06] LABS: Bacteria Urine None Seen (None Seen); Hyaline Casts Urine 0-2 /LPF (0-2); RBC Urine 0-2 /HPF (0-2); Squamous Epithelial Cell Urine 0-2 /HPF (0-2); WBC Urine 0-5 /HPF (0-5)
[2022-05-16 15:21] LABS: Lipase 40 U/L (8-78)
[2022-05-16] MEDS: 0.9 % Sodium Chloride 1,000 ML 999 ML IV ×2 (15:34→17:23)
[2022-05-16 15:42] LABS: OBS Int Ctl Valid YES; OBS1 NEGATIVE (NEGATIVE)
[2022-05-16 18:02] LABS: Acetaminophen LAB < 17 mcg/mL (<30)
[2022-05-16 19:33] LABS: Bilirubin Direct 2.7 mg/dL (0.0-0.5)
--- NOTE | 2022-05-16 19:35 | PM.IMHP ---
History of Present Illness Date of Service: 05/16/22 Attending physician on admission: Jean Pierre Rainey Chief Complaint: gait imbalance 56-year-old male with history of insulin-dependent type 2 diabetes, Yang, hypertension, depression, conversion disorder, chronic constipation, vertigo, CKD stage 3, and obesity presented to the ED for evaluation of epigastric discomfort, vertigo that has been ongoing for 4 days but most noticeable this morning and he was advised to present to the ED by his [facility] nurse. He also states that he is had insomnia for the last 4 days. Denies any fevers, chills, nausea, vomiting, diarrhea, melena, hematochezia, chest pain. Denies any urinary symptoms. On arrival, vital signs stable. No leukocytosis. Normocytic anemia with H/H of 9.1/26.0 (, last recorded at 12.2/35.9% in 05/2021). Renal function baseline with creatinine 3.13, BUN 48. Sodium 129, potassium 4.0, chloride 97, CO2 19, glucose 165. LFTs elevated with total bilirubin 4.2, direct bilirubin 2.7, AST 74, ALT 191, alkaline phosphatase 226 . Patient did have similar lab findings and 06/2021 in 07/2020 with admission in 07/2020 though hyperbilirubinemia more significant at 10.5. At that time, he was seen by GI recommending discontinuation of Lipitor and did have MRCP which did not reveal any biliary obstruction and LFTs did trend down. He has had negative hepatitis serologies in the past for both hepatitis-B and C. Repeat hepatitis-B and C antibody testing is pending. Acetaminophen level is negative today. CT abdomen/pelvis is without any acute intra-abdominal abnormality. U/S of the right upper quadrant showed cholelithiasis with gallbladder wall thickening and trace amount of pericholecystic free fluid possibly suggestive of acute cholecystitis and increased echogenicity of the liver as well as small right pleurel effusion. CXR unremarkable. Follow up discussion with gen surg who did not feel LFT elevation was related to gallbladder. ED discussed case with GI who is recommending MRCP, and observation to follow LFTs. Patient also treated with 1 L IV NS. Denies etoh use, illicit drug use, or smoking. Doees use about 2g tylenol daily for knee pain. 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 Surgical History H/O colonoscopy History of esophagogastroduodenoscopy (EGD) Hx of arthroscopy of knee Hx of arthroscopy of right knee Social History Household Members: Family Household Members Other:: SISTER Housing: Apartment Do you presently have visiting nurse or other home services: Yes Alcohol intake: never Patient Tobacco Use Status: Never used Tobacco Smoked in Last 30 Days: No e-Cigarette/Vaping Use: Never Used Second Hand Smoke Exposure: Yes (HISTORY OF SECOND HAND SMOKE EXPOSURE) Advance Directives: Yes Advance Directives on File: Yes Advance Directives Date on File: 05/05/20 service: No Current occupational status: disabled Current occupation: right handed Cognitive needs: No Hearing needs: No Vision needs: No Meds Allergies Allergy/AdvReac Type Severity Reaction Status Date / Time cephalexin [From KEFLEX] Allergy Mild ITCHY Verified 05/09/22 12:52 THROAT lisinopril [LISINOPRIL] Allergy Unknown SWELLING Verified 05/09/22 12:52 COUGH Active Medications: Current Medications Enoxaparin Sodium (Enoxaparin Sodium 40 Mg/0.4 Ml Syringe) 40 mg SUBCUT Q24H [facility] Pharmacy Consult (Consult Rx Perform Med Rec) 1 each MISCELLANE ONCE PRN PRN Reason: Consult order Sodium Chloride (0.9 % Sodium Chloride Flush 3 Ml Syringe) 3 ml IVFLUSH QSHIFT [facility] Home Medications Medication Instructions Recorded Confirmed Last Taken Type venlafaxine 150 mg 150 mg PO DAILY 10/30/21 04/16/22 Unknown History capsule,extended release 24 hr multivitamin with folic acid 400 1 tab PO DAILY 03/06/22 04/16/22 Unknown History mcg tablet (Tab-A-George) pen needle, diabetic 32 gauge x #50 ea 03/06/22 04/16/22 Unknown History 06/14 ([facility] Pen Needle) bupropion HCl 150 mg 24 hr tablet, 150 mg PO DAILY 05/16/22 05/16/22 05/16/22 History extended release furosemide 20 mg tablet (Lasix) 20 mg PO BIDWM 05/16/22 05/16/22 05/16/22 History insulin aspart U-100 100 unit/mL 14 unit subcut TIDAC 05/16/22 05/16/22 05/16/22 History (3 mL) subcutaneous pen (Novolog FlexPen U-100 Insulin aspart) insulin glargine U-300 conc 300 70 unit subcut DAILY 05/16/22 05/16/22 05/15/22 History unit/mL (3 mL) subcutaneous pen (Toujeo Max U-300 SoloStar) meclizine 25 mg tablet 25 mg PO Q6H PRN Dizziness 05/16/22 05/16/22 Unknown History trazodone 150 mg tablet 150 mg PO BEDTIME PRN Sleep 05/16/22 05/16/22 05/15/22 History Physical Exam Vital Signs and Narrative: Vital Signs: Last Vital Signs Temp 97.9 F 05/16/22 15:49 Pulse 80 05/16/22 15:49 Resp 16 05/16/22 15:49 BP 140/71 H 05/16/22 15:49 Pulse Ox 93 05/16/22 15:49 O2 Del Method 05/16/22 15:49 BMI result Body Mass Index 34.0 Constitutional - Awake and Alert, No apparent distress Eyes - PERRLA, EOMI. Slight scleral icterus Cardiovascular - S1S2, RRR, No edema Respiratory - Normal lung expansion, Normal respiratory effort, No respiratory distress, CTA bilaterally Gastrointestinal - NT / ND; +BS; No rebound or guarding Extremities - no calf tenderness bilaterally, no swelling Skin - Warm/Dry Neurological - Alert & oriented x3, CN II-XII in tact, 5/5 strength BUE and BLE Psychological - Appropriate affect Results Labs 05/16/22 13:43 05/16/22 13:43 Labs: Laboratory Results - last 24 hr 05/16/22 05/16/22 05/16/22 13:36 13:43 13:43 MCV 84.7 MCH 29.6 MCHC 35.0 RDW 12.5 Plt Count 192 D MPV 10.5 Immature Gran % (Auto) 0.5 H Neut % (Auto) 80.2 H Lymph % (Auto) 6.5 L Archer % (Auto) 11.8 H Eos % (Auto) 0.6 Baso % (Auto) 0.4 Lymph # (Auto) 0.7 L Archer # (Auto) 1.3 H Eos # (Auto) 0.1 Baso # (Auto) 0.0 Abs Immat Gran (auto) 0.05 H Absolute Neuts (auto) 8.7 H Absolute Nucleated RBC 0.000 Nucleated RBC % (auto) 0.0 PT 17.0 H INR 1.5 H Anion Gap Estim Creat Clear Calc Estimated GFR Random Glucose Calcium Total Bilirubin Direct Bilirubin AST ALT Alkaline Phosphatase Troponin I High Sens Total Protein Albumin Lipase Urine Color Urine Appearance Urine pH Ur Specific [place]well Urine Protein Urine Glucose (UA) Urine Ketones Urine Blood Urine Nitrite Ur Leukocyte Esterase Urine RBC Urine WBC Ur Squamous Epith Cells Urine Bacteria Hyaline Casts Stool Occult Blood Acetaminophen Acetone, Qual Influenza Type A (PCR) NEGATIVE Influenza Type B (PCR) NEGATIVE RSV RNA Qual (PCR) NEGATIVE SARS-CoV-2 RNA (RT-PCR) NEGATIVE 05/16/22 05/16/22 05/16/22 13:43 13:43 13:43 MCV MCH MCHC RDW Plt Count MPV Immature Gran % (Auto) Neut % (Auto) Lymph % (Auto) Archer % (Auto) Eos % (Auto) Baso % (Auto) Lymph # (Auto) Archer # (Auto) Eos # (Auto) Baso # (Auto) Abs Immat Gran (auto) Absolute Neuts (auto) Absolute Nucleated RBC Nucleated RBC % (auto) PT INR Anion Gap 17 Estim Creat Clear Calc 31.3 Estimated GFR 21 Random Glucose 165 H Calcium 8.5 D Total Bilirubin 4.2 H Direct Bilirubin 2.7 H AST 74 H ALT 191 H Alkaline Phosphatase 226 H Troponin I High Sens 9.6 Total Protein 6.2 L Albumin 3.4 L Lipase 40 Urine Color Urine Appearance Urine pH Ur Specific [place] Urine Protein Urine Glucose (UA) Urine Ketones Urine Blood Urine Nitrite Ur Leukocyte Esterase Urine RBC Urine WBC Ur Squamous Epith Cells Urine Bacteria Hyaline Casts Stool Occult Blood Acetaminophen < 17 Acetone, Qual Negative Influenza Type A (PCR) Influenza Type B (PCR) RSV RNA Qual (PCR) SARS-CoV-2 RNA (RT-PCR) 05/16/22 05/16/22 14:34 15:36 MCV MCH MCHC RDW Plt Count MPV Immature Gran % (Auto) Neut % (Auto) Lymph % (Auto) Archer % (Auto) Eos % (Auto) Baso % (Auto) Lymph # (Auto) Archer # (Auto) Eos # (Auto) Baso # (Auto) Abs Immat Gran (auto) Absolute Neuts (auto) Absolute Nucleated RBC Nucleated RBC % (auto) PT INR Anion Gap Estim Creat Clear Calc Estimated GFR Random Glucose Calcium Total Bilirubin Direct Bilirubin AST ALT Alkaline Phosphatase Troponin I High Sens Total Protein Albumin Lipase Urine Color Dark Yellow Urine Appearance Clear Urine pH 6.0 Ur Specific Cromwell 1.010 Urine Protein 100 (2+) H Urine Glucose (UA) Negative Urine Ketones Negative Urine Blood Trace H Urine Nitrite Negative Ur Leukocyte Esterase Negative Urine RBC 0-2 Urine WBC 0-5 Ur Squamous Epith Cells 0-2 Urine Bacteria None Seen Hyaline Casts 0-2 Stool Occult Blood NEGATIVE Acetaminophen Acetone, Qual Influenza Type A (PCR) Influenza Type B (PCR) RSV RNA Qual (PCR) SARS-CoV-2 RNA (RT-PCR) Imaging Radiologist's Impressions: Impressions Abdomen/Pelvis CT 05/16/22 15:11 IMPRESSION: 1. A cause for the patient's abdominal pain and jaundice has not been found. 2. Incidental note made of increased reticulation and tree-in-bud densities at the lung bases with a new small right pleural effusion and symmetric thickening of the bladder wall. Fleischner guidelines were followed. Abdomen Ultrasound 05/16/22 17:27 IMPRESSION: 1. Cholelithiasis with gallbladder wall thickening and trace amount of pericholecystic free fluid, suggesting the presence of acute cholecystitis in the appropriate clinical setting. If indicated, correlation with a hepatobiliary nuclear medicine study could be obtained. 2. Increased liver parenchymal echogenicity is nonspecific and could be seen in the setting of hepatic steatosis or hepatocellular disease. 3. Small right pleural effusion. Assessment and Plan (1) Elevated LFTs: Status: Acute Plan 56-year-old male with history of insulin-dependent type 2 diabetes, Yang, hypertension, depression, conversion disorder, chronic constipation, vertigo, CKD stage 3, and obesity to be observed for elevated LFTs. #Elevated LFTs- unclear etiology -Nontender abd, negative Pathak sign -Abd u/s showing cholelithiasis with gallbladder wall thickening suggestive of possible cholecystitis, CBD normal. However, ED discussed with general surgery who does not feel this is gallbladder related. GI recommending follow-up MRCP to evaluate for any biliary obstruction. Hold on any abx for cholecystitis at this time. -Hepatitis less likely given absence of abdominal pain. However, hepatitis B and C antibody levels pending -MRCP ordered -Repeat CMP pending. Follow LFTs -Avoid hepatoxins- hold atorvastatin -appreciate GI input # insulin-dependent type 2 diabetes without hyperglycemia -continue home basal insulin -Humalog on sliding scale -POC glucose -diabetic diet -hold p.o. meds # diabetic polyneuropathy -continue gabapentin # diabetic gastroparesis -continue home meds # hypertension-reasonably controlled -continue home meds # depression/anxiety/conversion disorder -continue home meds DVT prophylaxis-Lovenox Full code Time Spent With Patient Time: Total time managing care of this patient today ____ minutes. Quality Stroke Does the patient have a stroke diagnosis?: No VTE Prior VTE?: No VTE Risk Level:: Medical - moderate - high VTE Device Contraindication: Treatment Not Indicated VTE Drug Contraindication: N/A - Med Ordered
--- NOTE | 2022-05-16 19:37 | PHA.MEDREC ---
Pharmacy Consult ? Medication Reconciliation Pharmacy has completed the medication reconciliation.
[2022-05-16 19:52] LABS: Lactic Acid 0.5 mmol/L (0.5-2.0)
--- NOTE | 2022-05-16 19:56 | MHC.EDTECH ---
2000 rounding and vitals sign taken ,pt awake and is resting in bed .
[2022-05-16 20:47] LABS: Alanine Aminotransferase 176 U/L (0-40); Albumin Level 3.5 g/dL (3.5-5.0); Alkaline Phosphatase 233 U/L (39-117); Anion Gap 17 (12-20); Aspartate Amino Transferase 61 U/L (5-37); Bilirubin Total 4.2 mg/dL (0.0-1.0); Blood Urea Nitrogen 48 mg/dL (9-16); Calcium 8.7 mg/dL (8.4-10.2); Carbon Dioxide 17 mmol/L (22-29); Chloride 101 mmol/L (96-108); Creatinine Clr Calc Pharmacy 31.2; Estimated Glomerular Filt Rate 21; Glucose Random 154 mg/dL (60-115); Potassium 4.4 mmol/L (3.3-5.1); Sodium 131 mmol/L (135-145); Total Protein 6.4 g/dL (6.5-8.0)
[2022-05-16] MEDS: Gabapentin 300 MG CAPSULE PO (21:18)
[2022-05-16] MEDS: Metoclopramide HCl 5 MG TABLET PO (21:18)
[2022-05-16] MEDS: Simethicone 80 MG TAB.CHEW 160 MG PO (21:18)
[2022-05-16] MEDS: Labetalol HCL 200 MG TABLET PO (21:18)
[2022-05-16] MEDS: Famotidine 20 MG TABLET PO (21:18)
[2022-05-16] MEDS: Enoxaparin Sodium 40 MG/0.4 ML SYRINGE SUBCUT (21:19)
--- NOTE | 2022-05-16 22:01 | MHC.CM.PN ---
PEARL 05/16. Met with patient assigned to observation with bed assignment pending. Lives w sister. HCP on file. J&J/booster x1. Cane. Per daily/ medication management & Compliance. Pt has mental health diagnosis and hx non-compliance. Referral placed with Per to follow. D/C plan: Home with continued existing services. Pt to arrange transportation home. CM to follow for discharge planning.
--- NOTE | 2022-05-16 23:17 | PC.NURSE ---
THIS RN STANDBY ASSIST WITH PT TO THE BATHROOM. PT REPORTS MILD DIZZINESS ONCE GETTING BACK INTO BED
[2022-05-17] VITALS: BP 155/78; PULSE 78; RESP 16; TEMP 37.1; O2SAT 96
[2022-05-17] MEDS: traZODone HCL 50 MG TABLET 150 MG PO ×2 (00:27→22:12)
--- NOTE | 2022-05-17 00:28 | PC.NURSE ---
pt requested prn trazadone for sleep. pt medicated according to mar
--- NOTE | 2022-05-17 02:41 | PC.NURSE ---
pt sleeping on stretcher at this time
[2022-05-17 03:42] VITALS: BP 156/76; PULSE 80; RESP 18; TEMP 37.1; O2SAT 94
--- NOTE | 2022-05-17 03:44 | PC.NURSE ---
2nd BP since completion of iv fluids 105/37 map [address] robles made aware of low map at this time. awaiting new orders at this time
--- NOTE | 2022-05-17 04:43 | MHC.EDTECH ---
PT soiled with stool. Pt assisted with main care. Pt given hospital pants and bed linen/pads changed. Pt reminded to ring call santiago if he needs to use the BR for assistance
--- NOTE | 2022-05-17 06:58 | PC.NURSE ---
assumed care of patient, pt resting comfortably in bed, VSS, awaiting inpt bed
--- NOTE | 2022-05-17 07:19 | HO.PM.IMPN ---
Subjective Subjective Date of Service: 05/17/22 Interval History: Feeling better this morning, abdominal pain has resolved tolerating diet no nausea, no vomiting, no fevers, no chills, denies lightheadedness or dizziness. Review of Systems General denies fever chills Neuro complaining of insomnia Respiratory no shortness of breath, no cough CVS no chest pain Review of Systems: Yes all other systems are reviewed and are negative Physical Exam Vital Signs: Vital Signs: Last Vital Signs Temp 98.8 F 05/17/22 03:42 Pulse 80 05/17/22 03:42 Resp 18 05/17/22 03:42 BP 156/76 H 05/17/22 03:42 Pulse Ox 94 05/17/22 03:42 O2 Del Method 05/17/22 03:42 BMI result Body Mass Index 34.0 Const: Other: General awake alert x3, resting comfortably in no acute distress. Neck supple no JVD. CVS regular rate rhythm, Respiratory lungs clear to auscultation, no respiratory distress, no rhonchi. Gastrointestinal abdomen soft, nontender, bowel sounds audible, no guarding , no rigidity. Extremities no edema. Neuro nonfocal patient moving all 4 extremity speech clear. Skin pallor/mild jaundiced Psych appropriate affect Objective Data Active Medications Amlodipine Besylate (Amlodipine Besylate 10 Mg Tablet) 10 mg PO DAILY [facility]; Protocol Bupropion HCl (Bupropion Hcl Xl 150 Mg Tab.Er.24h) 150 mg PO DAILY [facility] Clonazepam (Clonazepam 0.5 Mg Tablet) 0.5 mg PO TID PRN PRN Reason: anxiety Dextrose (Dextrose 50 % 25 Gm/50 Ml Syringe) 25 gm IVPUSH Q15M PRN; Protocol PRN Reason: per Hypoglycemia Standing Ord. Docusate Sodium (Docusate Sodium 100 Mg Capsule) 100 mg PO DAILY PRN PRN Reason: Constipation Enoxaparin Sodium (Enoxaparin Sodium 40 Mg/0.4 Ml Syringe) 40 mg SUBCUT Q24H [facility] Last Admin: 05/16/22 21:19 Dose: 40 mg Documented By: HECTOR Famotidine (Famotidine 20 Mg Tablet) 20 mg PO BID [facility] Last Admin: 05/16/22 21:18 Dose: 20 mg Documented By: HECTOR Furosemide (Furosemide 20 Mg Tablet) 20 mg PO BIDWM [facility]; Protocol Gabapentin (Gabapentin 300 Mg Capsule) 300 mg PO BID [facility] Last Admin: 05/16/22 21:18 Dose: 300 mg Documented By: HECTOR Glucose (Glucose Gel 15 Gm Gel..Gram.) 15 gm PO Q15M PRN; Protocol PRN Reason: per Hypoglycemia Standing Ord. Insulin Glargine (Insulin Glargine,Hum.Rec.Anlog 100 Unit/Ml 10 Ml Vial) 42 unit SUBCUT DAILY [facility] Insulin Human Lispro (Insulin Lispro 100 Unit/Ml 3 Ml Vial) 0 unit SUBCUT QIDACHS [facility]; Protocol Labetalol HCl (Labetalol Hcl 200 Mg Tablet) 200 mg PO BID [facility]; Protocol Last Admin: 05/16/22 21:18 Dose: 200 mg Documented By: HECTOR Losartan Potassium (Losartan Potassium 50 Mg Tablet) 50 mg PO DAILY [facility]; Protocol Meclizine HCl (Meclizine Hcl 25 Mg Tablet) 25 mg PO Q6H PRN PRN Reason: Dizziness Metoclopramide HCl (Metoclopramide Hcl 5 Mg Tablet) 5 mg PO QID [facility] Last Admin: 05/16/22 21:18 Dose: 5 mg Documented By: HECTOR Multivitamins/Vitamin C (Multivitamin Tablet) 1 tab PO DAILY [facility] Ondansetron HCl (Ondansetron Hcl 4 Mg/2 Ml Vial) 4 mg IVPUSH Q8H PRN PRN Reason: Nausea and Vomiting Pharmacy Consult (Consult Rx Perform Med Rec) 1 each MISCELLANE ONCE PRN PRN Reason: Consult order Simethicone (Simethicone 80 Mg Tab.Chew) 160 mg PO TID [facility] Last Admin: 05/16/22 21:18 Dose: 160 mg Documented By: HECTOR Sodium Chloride (0.9 % Sodium Chloride Flush 3 Ml Syringe) [facility] Last Admin: 05/17/22 00:37 Dose: Not Given Documented By: HECTOR Non-Admin Reason: Med Not Available Trazodone HCl (Trazodone Hcl 50 Mg Tablet) 150 mg PO BEDTIME PRN PRN Reason: Sleep Last Admin: 05/17/22 00:27 Dose: 150 mg Documented By: HECTOR Vitamin D (Cholecalciferol (Vitamin D3) 25 Mcg Tablet) 50 mcg PO DAILY [facility] Labs 05/16/22 13:43 05/16/22 20:17 Labs: Laboratory Results - last 24 hr 05/16/22 05/16/22 05/16/22 13:36 13:43 13:43 MCV 84.7 MCH 29.6 MCHC 35.0 RDW 12.5 Plt Count 192 D MPV 10.5 Immature Gran % (Auto) 0.5 H Neut % (Auto) 80.2 H Lymph % (Auto) 6.5 L [place] % (Auto) 11.8 H Eos % (Auto) 0.6 Baso % (Auto) 0.4 Lymph # (Auto) 0.7 L [place] # (Auto) 1.3 H Eos # (Auto) 0.1 Baso # (Auto) 0.0 Abs Immat Gran (auto) 0.05 H Absolute Neuts (auto) 8.7 H Absolute Nucleated RBC 0.000 Nucleated RBC % (auto) 0.0 PT 17.0 H INR 1.5 H Anion Gap Estim Creat Clear Calc Estimated GFR Random Glucose Lactic Acid Calcium Total Bilirubin Direct Bilirubin AST ALT Alkaline Phosphatase Troponin I High Sens Total Protein Albumin Lipase Urine Color Urine Appearance Urine pH Ur Specific [place] Urine Protein Urine Glucose (UA) Urine Ketones Urine Blood Urine Nitrite Ur Leukocyte Esterase Urine RBC Urine WBC Ur Squamous Epith Cells Urine Bacteria Hyaline Casts Stool Occult Blood Acetaminophen Acetone, Qual Influenza Type A (PCR) NEGATIVE Influenza Type B (PCR) NEGATIVE RSV RNA Qual (PCR) NEGATIVE SARS-CoV-2 RNA (RT-PCR) NEGATIVE 05/16/22 05/16/22 05/16/22 13:43 13:43 13:43 MCV MCH MCHC RDW Plt Count MPV Immature Gran % (Auto) Neut % (Auto) Lymph % (Auto) [place] % (Auto) Eos % (Auto) Baso % (Auto) Lymph # (Auto) [place] # (Auto) Eos # (Auto) Baso # (Auto) Abs Immat Gran (auto) Absolute Neuts (auto) Absolute Nucleated RBC Nucleated RBC % (auto) PT INR Anion Gap 17 Estim Creat Clear Calc 31.3 Estimated GFR 21 Random Glucose 165 H Lactic Acid Calcium 8.5 D Total Bilirubin 4.2 H Direct Bilirubin 2.7 H AST 74 H ALT 191 H Alkaline Phosphatase 226 H Troponin I High Sens 9.6 Total Protein 6.2 L Albumin 3.4 L Lipase 40 Urine Color Urine Appearance Urine pH Ur Specific [place] Urine Protein Urine Glucose (UA) Urine Ketones Urine Blood Urine Nitrite Ur Leukocyte Esterase Urine RBC Urine WBC Ur Squamous Epith Cells Urine Bacteria Hyaline Casts Stool Occult Blood Acetaminophen < 17 Acetone, Qual Negative Influenza Type A (PCR) Influenza Type B (PCR) RSV RNA Qual (PCR) SARS-CoV-2 RNA (RT-PCR) 05/16/22 05/16/22 05/16/22 14:34 15:36 19:21 MCV MCH MCHC RDW Plt Count MPV Immature Gran % (Auto) Neut % (Auto) Lymph % (Auto) [place] % (Auto) Eos % (Auto) Baso % (Auto) Lymph # (Auto) [place] # (Auto) Eos # (Auto) Baso # (Auto) Abs Immat Gran (auto) Absolute Neuts (auto) Absolute Nucleated RBC Nucleated RBC % (auto) PT INR Anion Gap Estim Creat Clear Calc Estimated GFR Random Glucose Lactic Acid 0.5 Calcium Total Bilirubin Direct Bilirubin AST ALT Alkaline Phosphatase Troponin I High Sens Total Protein Albumin Lipase Urine Color Dark Yellow Urine Appearance Clear Urine pH 6.0 Ur Specific [place] 1.010 Urine Protein 100 (2+) H Urine Glucose (UA) Negative Urine Ketones Negative Urine Blood Trace H Urine Nitrite Negative Ur Leukocyte Esterase Negative Urine RBC 0-2 Urine WBC 0-5 Ur Squamous Epith Cells 0-2 Urine Bacteria None Seen Hyaline Casts 0-2 Stool Occult Blood NEGATIVE Acetaminophen Acetone, Qual Influenza Type A (PCR) Influenza Type B (PCR) RSV RNA Qual (PCR) SARS-CoV-2 RNA (RT-PCR) 05/16/22 20:17 MCV MCH MCHC RDW Plt Count MPV Immature Gran % (Auto) Neut % (Auto) Lymph % (Auto) [place] % (Auto) Eos % (Auto) Baso % (Auto) Lymph # (Auto) [place] # (Auto) Eos # (Auto) Baso # (Auto) Abs Immat Gran (auto) Absolute Neuts (auto) Absolute Nucleated RBC Nucleated RBC % (auto) PT INR Anion Gap 17 Estim Creat Clear Calc 31.2 Estimated GFR 21 Random Glucose 154 H Lactic Acid Calcium 8.7 Total Bilirubin 4.2 H Direct Bilirubin AST 61 H ALT 176 H Alkaline Phosphatase 233 H Troponin I High Sens Total Protein 6.4 L Albumin 3.5 Lipase Urine Color Urine Appearance Urine pH Ur Specific [place] Urine Protein Urine Glucose (UA) Urine Ketones Urine Blood Urine Nitrite Ur Leukocyte Esterase Urine RBC Urine WBC Ur Squamous Epith Cells Urine Bacteria Hyaline Casts Stool Occult Blood Acetaminophen Acetone, Qual Influenza Type A (PCR) Influenza Type B (PCR) RSV RNA Qual (PCR) SARS-CoV-2 RNA (RT-PCR) Assessment and Plan (1) Elevated LFTs: Status: Acute Plan 56-year-old male with history of insulin-dependent type 2 diabetes, Yang, hypertension, depression, conversion disorder, chronic constipation, vertigo, CKD stage 3, and obesity to be observed for elevated LFTs. #Elevated LFTs- unclear etiology -Nontender abd, negative Pathak sign -Abd u/s showing cholelithiasis with gallbladder wall thickening suggestive of possible cholecystitis, CBD normal.? MRCP showed no evidence of cholecystitis, no biliary obstruction, tiny gallstone near gallbladder neck. -hepatitis B and C antibody levels pending Repeat liver enzymes trending down, alk-phos remains elevated -spoke with Dr. Ac, question patient periodically passing sludge or gall stone causing intermittent LFT elevation/consult surgery for possible cholecystectomy inpatient versus outpatient Follow LFTs, serologies for ethan, autoimmune and hepatitis pending, hold statins Liver biopsy if LFTs worsening # insulin-dependent type 2 diabetes without hyperglycemia -stable blood sugars, continue basal insulin,Humalog sliding scale, home by mouth meds on hold -POC glucose -diabetic diet # diabetic polyneuropathy -continue gabapentin # diabetic gastroparesis -continue home meds # hypertension-reasonably controlled on multiple home medications losartan 50 mg, labetalol 200 b.i.d. and Norvasc 10 mg # depression/anxiety/conversion disorder -continue home meds # mild hyponatremia chronic question related to kidney disease # chronic kidney disease stage 3 is stable # obesity will recommend low-calorie diet DVT prophylaxis-Lovenox Full code Patient will need continued inpatient hospitalization for monitoring of LFTs Time Spent With Patient Time: Total time managing care of this patient today ____ minutes. Quality Stroke Does the patient have a stroke diagnosis?: No VTE Prior VTE?: No VTE Risk Level:: Medical - moderate - high VTE Device Contraindication: Treatment Not Indicated VTE Drug Contraindication: N/A - Med Ordered
[2022-05-17 07:28] LABS: Glucose, Whole Blood 194 mg/dL (60-115)
[2022-05-17 07:31] LABS: MANUAL DIFF FLAG NO
[2022-05-17 07:37] LABS: Basophils Percent Auto 0.4 % (0-2); Eosinophils Absolute Auto 0.1 X10*3/uL (0.0-0.4); Eosinophils Percent Auto 0.7 % (0-4); Hematocrit 27.8 % (42.0-52.0); Hemoglobin 9.6 g/dl (14.0-18.0); Imm Gran Abs Auto 0.04 X10*3/uL (0.00-0.03); Imm Gran Pct Auto 0.4 % (0.0-0.4); Lymphocytes Absolute Auto 0.6 X10*3/uL (1.2-4.9); Lymphocytes Percent Auto 5.7 % (20-40); Mean Corpuscular HGB Conc 34.5 g/dl (31.0-36.0); Mean Corpuscular Hemoglobin 29.4 pg (27.0-33.0); Mean Corpuscular Volume 85.3 fL (80.0-98.0); Mean Platelet Volume 10.1 fL (9.4-12.4); Monocytes Absolute Auto 1.2 X10*3/uL (0.1-1.2); Monocytes Percent Auto 10.6 % (2-11); Neutrophils Absolute Auto 9.1 x10*3/uL (2.0-8.3); Neutrophils Percent Auto 82.2 % (45-73); Platelet Count 214 X10*3/uL (160-400); Red Blood Count 3.26 X10*6/uL (4.60-5.80); Red Cell Distribution Width 12.5 % (11.0-16.0); White Blood Count 11.1 X10*3/uL (4.8-10.8)
[2022-05-17] MEDS: Labetalol HCL 200 MG TABLET PO ×2 (07:39→19:58)
[2022-05-17] MEDS: amLODIPine Besylate 10 MG TABLET PO (07:40)
[2022-05-17] MEDS: Furosemide 20 MG TABLET PO ×2 (07:40→16:23)
[2022-05-17] MEDS: Simethicone 80 MG TAB.CHEW 160 MG PO ×3 (07:40→19:58)
[2022-05-17] MEDS: Multivitamin TABLET 1 TAB PO (07:40)
[2022-05-17] MEDS: buPROPion HCl XL 150 MG TAB.ER.24H PO (07:40)
[2022-05-17] MEDS: Metoclopramide HCl 5 MG TABLET PO ×4 (07:40→19:58)
[2022-05-17] MEDS: Famotidine 20 MG TABLET PO ×2 (07:41→20:04)
[2022-05-17] MEDS: 0.9 % Sodium Chloride Flush 3 ML SYRINGE IVFLUSH ×3 (07:41→20:04)
[2022-05-17] MEDS: Cholecalciferol (Vitamin D3) 25 MCG TABLET 50 MCG PO (07:41)
[2022-05-17] MEDS: Gabapentin 300 MG CAPSULE PO ×2 (07:41→20:04)
[2022-05-17] MEDS: Losartan Potassium 50 MG TABLET PO (07:41)
[2022-05-17] MEDS: Insulin Glargine,Hum.rec.anlog 100 UNIT/ML 10 ML VIAL 42 UNIT SUBCUT (07:42)
[2022-05-17] MEDS: Insulin Lispro 100 UNIT/ML 3 ML VIAL SUBCUT ×2 (07:42→22:11)
[2022-05-17 07:48] LABS: Alanine Aminotransferase 154 U/L (0-40); Albumin Level 3.5 g/dL (3.5-5.0); Alkaline Phosphatase 253 U/L (39-117); Anion Gap 17 (12-20); Aspartate Amino Transferase 47 U/L (5-37); Bilirubin Total 4.3 mg/dL (0.0-1.0); Blood Urea Nitrogen 44 mg/dL (9-16); Calcium 8.9 mg/dL (8.4-10.2); Carbon Dioxide 17 mmol/L (22-29); Chloride 103 mmol/L (96-108); Creatinine Clr Calc Pharmacy 34.5; Estimated Glomerular Filt Rate 23; Glucose Random 181 mg/dL (60-115); Sodium 133 mmol/L (135-145); Total Protein 6.5 g/dL (6.5-8.0)
--- NOTE | 2022-05-17 08:41 | PC.NURSE ---
MRI screening form filled out and sent to MRI, pt to MRI
--- NOTE | 2022-05-17 08:43 | PM.GICN ---
History of Present Illness Data of Consult Service Date: 05/17/22 Requesting physician: Caterina Toth Primary Care Provider: Sarthak Spencer MD HPI Reason for consult: abn LFT 56-year-old male with history of insulin-dependent type 2 diabetes, Yang, hypertension, depression, conversion disorder, chronic constipation, vertigo, CKD stage 3, and obesity who I am seeing for abn LFT Patient presented with 4 d of poor sleep with vertigo, dry cough, chills and runny nose. He also noted 10/10 epigastric pain coming in waves, releived by moving around and associated with nausea but no vomiting. No worsening factors, unable to say if food makes it worse. He denies melena, pale stools but noted orange colored urine. Denies etoh use, illicit drug use, or smoking. He uses about 2g tylenol daily for knee pain. No sick contacts and no herbal supplements or change in medications. Today he says pain is gone and he is feeling better, also feeling hungry as well. LABS: LFTs elevated with total bilirubin 4.2, direct bilirubin 2.7, AST 74, ALT 191, alkaline phosphatase 226--Acetaminophen level is negative--He has had negative hepatitis serologies in the past for both hepatitis-B and C. Imaging: CT abdomen/pelvis is without any acute intra-abdominal abnormality.? U/S of the right upper quadrant showed cholelithiasis with gallbladder wall thickening and trace amount of pericholecystic free fluid possibly suggestive of acute cholecystitis and increased echogenicity of the liver as well as small right pleurel effusion. Of note patient has had similar presentations with raised LFT and neg MRCP Review of Systems Review of Systems: Constitutional : No Weight loss, No Fever, + Chills ENT/Mouth : No sore throat, + Rhinorrhea Eyes: No Swelling, No Redness Cardiovascular : No Chest Pain, No SOB, No Edema Respiratory : + Cough, No Sputum, No Wheezing Gastrointestinal : see HPI Genitourinary : NO Dysuria, No Urinary Frequency, No Hematuria, No Urgency Musculoskeletal : No joint pain, No Myalgias, No Joint Swelling Skin : No Skin Lesions, No rash Neuro : No Weakness, No Numbness, + Dizziness, No Headache Psych : No Anxiety/Panic, No Depression Heme/Lymph: No Bruising, No Lymphadenopathy Endocrine : No Polyuria, No Polydipsia All other systems reviewed and are negative. 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 Family history: reviewed and not pertinent Surgical History Surgical History H/O colonoscopy History of esophagogastroduodenoscopy (EGD) Hx of arthroscopy of knee Hx of arthroscopy of right knee Social History Social History Household Members: Family Household Members Other:: SISTER Housing: Apartment Do you presently have visiting nurse or other home services: Yes Alcohol intake: never Patient Tobacco Use Status: Never used Tobacco Smoked in Last 30 Days: No e-Cigarette/Vaping Use: Never Used Second Hand Smoke Exposure: Yes (HISTORY OF SECOND HAND SMOKE EXPOSURE) Advance Directives: Yes Advance Directives on File: Yes Advance Directives Date on File: 05/05/20 service: No Current occupational status: disabled Current occupation: right handed Cognitive needs: No Hearing needs: No Vision needs: No Meds Allergies Allergy/AdvReac Type Severity Reaction Status Date / Time cephalexin [From KEFLEX] Allergy Mild ITCHY Verified 05/09/22 12:52 THROAT lisinopril [LISINOPRIL] Allergy Unknown SWELLING Verified 05/09/22 12:52 COUGH Active Medications: Current Medications Amlodipine Besylate (Amlodipine Besylate 10 Mg Tablet) 10 mg PO DAILY [facility]; Protocol Last Admin: 05/17/22 07:40 Dose: 10 mg Bupropion HCl (Bupropion Hcl Xl 150 Mg Tab.Er.24h) 150 mg PO DAILY [facility] Last Admin: 05/17/22 07:40 Dose: 150 mg Clonazepam (Clonazepam 0.5 Mg Tablet) 0.5 mg PO TID PRN PRN Reason: anxiety Dextrose (Dextrose 50 % 25 Gm/50 Ml Syringe) 25 gm IVPUSH Q15M PRN; Protocol PRN Reason: per Hypoglycemia Standing Ord. Docusate Sodium (Docusate Sodium 100 Mg Capsule) 100 mg PO DAILY PRN PRN Reason: Constipation Enoxaparin Sodium (Enoxaparin Sodium 40 Mg/0.4 Ml Syringe) 40 mg SUBCUT Q24H [facility] Last Admin: 05/16/22 21:19 Dose: 40 mg Famotidine (Famotidine 20 Mg Tablet) 20 mg PO BID [facility] Last Admin: 05/17/22 07:41 Dose: 20 mg Furosemide (Furosemide 20 Mg Tablet) 20 mg PO BIDWM [facility]; Protocol Last Admin: 05/17/22 07:40 Dose: 20 mg Gabapentin (Gabapentin 300 Mg Capsule) 300 mg PO BID [facility] Last Admin: 05/17/22 07:41 Dose: 300 mg Glucose (Glucose Gel 15 Gm Gel..Gram.) 15 gm PO Q15M PRN; Protocol PRN Reason: per Hypoglycemia Standing Ord. Insulin Glargine (Insulin Glargine,Hum.Rec.Anlog 100 Unit/Ml 10 Ml Vial) 42 unit SUBCUT DAILY [facility] Last Admin: 05/17/22 07:42 Dose: 42 unit Insulin Human Lispro (Insulin Lispro 100 Unit/Ml 3 Ml Vial) 0 unit SUBCUT QIDACHS [facility]; Protocol Last Admin: 05/17/22 07:42 Dose: 2 unit Labetalol HCl (Labetalol Hcl 200 Mg Tablet) 200 mg PO BID [facility]; Protocol Last Admin: 05/17/22 07:39 Dose: 200 mg Losartan Potassium (Losartan Potassium 50 Mg Tablet) 50 mg PO DAILY [facility]; Protocol Last Admin: 05/17/22 07:41 Dose: 50 mg Meclizine HCl (Meclizine Hcl 25 Mg Tablet) 25 mg PO Q6H PRN PRN Reason: Dizziness Metoclopramide HCl (Metoclopramide Hcl 5 Mg Tablet) 5 mg PO QID [facility] Last Admin: 05/17/22 07:40 Dose: 5 mg Multivitamins/Vitamin C (Multivitamin Tablet) 1 tab PO DAILY [facility] Last Admin: 05/17/22 07:40 Dose: 1 tab Ondansetron HCl (Ondansetron Hcl 4 Mg/2 Ml Vial) 4 mg IVPUSH Q8H PRN PRN Reason: Nausea and Vomiting Pharmacy Consult (Consult Rx Perform Med Rec) 1 each MISCELLANE ONCE PRN PRN Reason: Consult order Simethicone (Simethicone 80 Mg Tab.Chew) 160 mg PO TID [facility] Last Admin: 05/17/22 07:40 Dose: 160 mg Sodium Chloride (0.9 % Sodium Chloride Flush 3 Ml Syringe) 3 ml IVFLUSH QSHIFT [facility] Last Admin: 05/17/22 07:41 Dose: 3 ml Trazodone HCl (Trazodone Hcl 50 Mg Tablet) 150 mg PO BEDTIME PRN PRN Reason: Sleep Last Admin: 05/17/22 00:27 Dose: 150 mg Vitamin D (Cholecalciferol (Vitamin D3) 25 Mcg Tablet) 50 mcg PO DAILY [facility] Last Admin: 05/17/22 07:41 Dose: 50 mcg Home Medications Medication Instructions Recorded Confirmed Last Taken Type venlafaxine 150 mg 150 mg PO DAILY 10/30/21 05/16/22 05/16/22 History capsule,extended release 24 hr multivitamin with folic acid 400 1 tab PO DAILY 03/06/22 05/16/22 05/16/22 History mcg tablet (Tab-A-George) pen needle, diabetic 32 gauge x #50 ea 03/06/22 04/16/22 Unknown History 06/14 ([employer]tracare Pen Needle) bupropion HCl 150 mg 24 hr tablet, 150 mg PO DAILY 05/16/22 05/16/22 05/16/22 History extended release furosemide 20 mg tablet (Lasix) 20 mg PO BIDWM 05/16/22 05/16/22 05/16/22 History insulin aspart U-100 100 unit/mL 14 unit subcut TIDAC 05/16/22 05/16/22 05/16/22 History (3 mL) subcutaneous pen (Novolog FlexPen U-100 Insulin aspart) insulin glargine U-300 conc 300 70 unit subcut DAILY 05/16/22 05/16/22 05/15/22 History unit/mL (3 mL) subcutaneous pen (Toujeo Max U-300 SoloStar) meclizine 25 mg tablet 25 mg PO Q6H PRN Dizziness 05/16/22 05/16/22 Unknown History trazodone 150 mg tablet 150 mg PO BEDTIME PRN Sleep 05/16/22 05/16/22 05/15/22 History Physical Exam Vital Signs: Vital Signs: Last Vital Signs Temp 98.8 F 05/17/22 03:42 Pulse 80 05/17/22 03:42 Resp 18 05/17/22 03:42 BP 156/76 H 05/17/22 03:42 Pulse Ox 94 05/17/22 03:42 O2 Del Method 05/17/22 03:42 BMI result Body Mass Index 34.0 EXAM: GENERAL: The patient is well developed and nontoxic, relaxed, mildly jaundiced VITAL SIGNS:see workflow HEENT: +icteric sclerae, PERRLA, EOMI. Oropharynx clear. Moist mucous membranes. Conjunctivae appear well perfused. No thyroid mass. CHEST: Chest wall is nontender. HEART: Regular rate and rhythm without murmurs. LUNGS: Clear to auscultation bilaterally. ABDOMEN: Soft, positive bowel sounds, mildly tender epigastrium, no organomegaly.no flank tenderness SKIN: No rash, no excessive bruising, petechiae, or purpura. NEUROLOGIC: Cranial nerves II-XII intact without motor/sensory deficit. Psych: nml affect Results Labs 05/17/22 07:26 05/17/22 07:26 Labs: Short CBC 05/16/22 05/17/22 Range/Units 13:43 07:26 WBC 10.8 11.1 H (4.8-10.8) X10*3/uL Hgb 9.1 L D 9.6 L (14.0-18.0) g/dl Hct 26.0 L D 27.8 L (42.0-52.0) % Plt Count 192 D 214 (160-400) X10*3/uL BMP 05/16/22 05/16/22 05/17/22 13:43 20:17 07:26 Sodium 129 L 131 L 133 L Potassium 4.0 D 4.4 4.0 Chloride 97 101 103 Carbon Dioxide 19 L 17 L 17 L BUN 48 H 48 H 44 H Creatinine 3.13 H 3.14 H 2.84 H Calcium 8.5 D 8.7 8.9 Liver Function 05/16/22 05/16/22 05/17/22 Range/Units 13:43 20:17 07:26 Total Bilirubin 4.2 H 4.2 H 4.3 H (0.0-1.0) mg/dL Direct Bilirubin 2.7 H (0.0-0.5) mg/dL AST 74 H 61 H 47 H (5-37) U/L ALT 191 H 176 H 154 H (0-40) U/L Alkaline Phosphatase 226 H 233 H 253 H (39-117) U/L Albumin 3.4 L 3.5 3.5 (3.5-5.0) g/dL Urine 05/16/22 Range/Units 14:34 Urine Color Dark Yellow Urine Appearance Clear Urine pH 6.0 (5.0-9.0) Ur Specific [place] 1.010 (1.005-1.025) Urine Protein 100 (2+) H (Neg-Trace) mg/dL Urine Glucose (UA) Negative (Negative) mg/dL Imaging MRI - abdomen: Attestation: I personally reviewed and interpreted this imaging study as follows: (gallstones, CBD nml) Assessment and Plan (1) Elevated LFTs: Status: Acute Plan 1/ Periodic LFT elevations with abdominal pain, with gallstones noted on imaging, maybe periodically passing sludge or gallstones causing LFt fluctuations, no evidence of CBD obstruction on MRCP. ddx: criggler ivone type 2, wilsons disease, A1AT def, --less likely [place] due to other numbers being up, had prior neg autoimmune tests. Could also be viral given he has cough and runny nose e.g HSV, cMV, EBV. no new meds or OTC meds to consider DILI as a cause PLAN: 1/ check serologies for wilsons, autoimmune, and infectious hep--orders entered 2/ trend LFT as doing 3/ if getting worse then may need liver bx 4/ if medical w/u neg then maybe consider surgical referral for cholecystectomy Time Spent With Patient Time: Total time managing care of this patient today ____ minutes. Procedures Date of Service Date of Service: 05/17/22
[2022-05-17 09:26] VITALS: BP 159/74; PULSE 84; RESP 16; TEMP 37.8; O2SAT 94
[2022-05-17 13:14] VITALS: BP 105/89; PULSE 87; RESP 16; TEMP 37.7; O2SAT 98
[2022-05-17 18:20] LABS: Glucose, Whole Blood 178 mg/dL (60-115)
[2022-05-17 19:27] VITALS: BMI 34.7
[2022-05-17] MEDS: Enoxaparin Sodium 40 MG/0.4 ML SYRINGE SUBCUT (19:57)
[2022-05-17] MEDS: clonazePAM 0.5 MG TABLET PO (19:58)
[2022-05-17 20:09] VITALS: BP 176/75; PULSE 91; RESP 20; O2SAT 97
[2022-05-17 20:17] VITALS: BP 167/53; PULSE 90; RESP 18; TEMP 37.1; O2SAT 92
[2022-05-17 21:02] LABS: Glucose, Whole Blood 180 mg/dL (60-115)
[2022-05-18 03:15] VITALS: BP 178/88; PULSE 99; RESP 18; TEMP 37.3; O2SAT 93
[2022-05-18 06:43] LABS: Alanine Aminotransferase 138 U/L (0-40); Albumin Level 3.4 g/dL (3.5-5.0); Alkaline Phosphatase 310 U/L (39-117); Anion Gap 17 (12-20); Aspartate Amino Transferase 63 U/L (5-37); Bilirubin Direct 2.4 mg/dL (0.0-0.5); Bilirubin Total 3.5 mg/dL (0.0-1.0); Blood Urea Nitrogen 45 mg/dL (9-16); Calcium 8.8 mg/dL (8.4-10.2); Carbon Dioxide 21 mmol/L (22-29); Chloride 100 mmol/L (96-108); Creatinine Clr Calc Pharmacy 30.9; Estimated Glomerular Filt Rate 20; Glucose Random 147 mg/dL (60-115); Potassium 3.6 mmol/L (3.3-5.1); Sodium 134 mmol/L (135-145); Total Protein 6.4 g/dL (6.5-8.0)
[2022-05-18 07:46] VITALS: BP 173/80; PULSE 86; RESP 18; TEMP 37.1; O2SAT 92
[2022-05-18 07:55] LABS: Glucose, Whole Blood 149 mg/dL (60-115)
[2022-05-18] MEDS: Insulin Glargine,Hum.rec.anlog 100 UNIT/ML 10 ML VIAL 42 UNIT SUBCUT (08:31)
[2022-05-18] MEDS: amLODIPine Besylate 10 MG TABLET PO (08:32)
[2022-05-18] MEDS: buPROPion HCl XL 150 MG TAB.ER.24H PO (08:32)
[2022-05-18] MEDS: Famotidine 20 MG TABLET PO ×2 (08:32→20:30)
[2022-05-18] MEDS: Multivitamin TABLET 1 TAB PO (08:32)
[2022-05-18] MEDS: Simethicone 80 MG TAB.CHEW 160 MG PO ×3 (08:32→20:31)
[2022-05-18] MEDS: Gabapentin 300 MG CAPSULE PO ×2 (08:32→20:31)
[2022-05-18] MEDS: Losartan Potassium 50 MG TABLET PO (08:33)
[2022-05-18] MEDS: Metoclopramide HCl 5 MG TABLET PO ×4 (08:33→20:31)
[2022-05-18] MEDS: Labetalol HCL 200 MG TABLET PO ×2 (08:34→20:31)
[2022-05-18] MEDS: Cholecalciferol (Vitamin D3) 25 MCG TABLET 50 MCG PO (08:35)
[2022-05-18] MEDS: 0.9 % Sodium Chloride Flush 3 ML SYRINGE IVFLUSH ×3 (08:36→20:34)
[2022-05-18] MEDS: Lactated Ringers 1,000 ML 80 ML IVCONT (08:40)
[2022-05-18 08:55] LABS: ~Hepatitis A Antibody IgM Nonreactive (Nonreactive)
[2022-05-18 08:56] LABS: ~HepC Num1 0.05 S/CO (0.00-0.79); ~Hepatitis C Antibody Nonreactive (Nonreactive)
--- NOTE | 2022-05-18 09:54 | PM.CNNEP ---
History of Present Illness Reason for Consult Consult date: 05/18/22 Chief Complaint Chief complaint: Abnormal Transaminases History of Present Illness Narrative: 56-year-old male with history of CKD presented to the ED for evaluation of epigastric discomfort, vertigo and found to have worsening kidney function. He denies fevers, chills, nausea, vomiting, diarrhea. CT abdomen was negative for obstruction. Review of Systems Review of Systems 10 points ROS negative except for pertinent in HPI PMFSH Past Medical History Medical History Anxiety Chronic hyperglycemia CKD (chronic kidney disease) stage 3, GFR 30-59 ml/min Depression Diabetes Diabetes type 2, uncontrolled Diabetic nephropathy associated with type 2 diabetes mellitus Diabetic neuropathy associated with type 2 diabetes mellitus Dyslipidemia Essential hypertension GERD (gastroesophageal reflux disease) High cholesterol Hypercalcemia Hyperlipidemia Hypertension nursing home (current) use of insulin Neuropathy Obesity Obesity (BMI 30-39.9) Severe depression Sleep apnea Type 2 diabetes mellitus with obesity Vitamin D deficiency Family History Family History Father Diabetes Mother No problems noted. Family history: reviewed and not pertinent Surgical History Surgical History H/O colonoscopy History of esophagogastroduodenoscopy (EGD) Hx of arthroscopy of knee Hx of arthroscopy of right knee Social History Social History Household Members: Family Household Members Other:: SISTER Housing: Apartment Do you presently have visiting nurse or other home services: Yes Alcohol intake: never Patient Tobacco Use Status: Never used Tobacco e-Cigarette/Vaping Use: Never Used Second Hand Smoke Exposure: Yes (HISTORY OF SECOND HAND SMOKE EXPOSURE) Advance Directives Date on File: 05/05/20 service: No Current occupational status: disabled Current occupation: right handed Cognitive needs: No Hearing needs: No Vision needs: No Meds Allergies Allergy/AdvReac Type Severity Reaction Status Date / Time cephalexin [From KEFLEX] Allergy Mild ITCHY Verified 05/09/22 12:52 THROAT lisinopril [LISINOPRIL] Allergy Unknown SWELLING Verified 05/09/22 12:52 COUGH Active Medications: Current Medications Amlodipine Besylate (Amlodipine Besylate 10 Mg Tablet) 10 mg PO DAILY [facility]; Protocol Last Admin: 05/18/22 08:32 Dose: 10 mg Bupropion HCl (Bupropion Hcl Xl 150 Mg Tab.Er.24h) 150 mg PO DAILY [facility] Last Admin: 05/18/22 08:32 Dose: 150 mg Clonazepam (Clonazepam 0.5 Mg Tablet) 0.5 mg PO TID PRN PRN Reason: anxiety Last Admin: 05/17/22 19:58 Dose: 0.5 mg Dextrose (Dextrose 50 % 25 Gm/50 Ml Syringe) 25 gm IVPUSH Q15M PRN; Protocol PRN Reason: per Hypoglycemia Standing Ord. Docusate Sodium (Docusate Sodium 100 Mg Capsule) 100 mg PO DAILY PRN PRN Reason: Constipation Enoxaparin Sodium (Enoxaparin Sodium 40 Mg/0.4 Ml Syringe) 40 mg SUBCUT Q24H [facility] Last Admin: 05/17/22 19:57 Dose: 40 mg Famotidine (Famotidine 20 Mg Tablet) 20 mg PO BID [facility] Last Admin: 05/18/22 08:32 Dose: 20 mg Gabapentin (Gabapentin 300 Mg Capsule) 300 mg PO BID [facility] Last Admin: 05/18/22 08:32 Dose: 300 mg Glucose (Glucose Gel 15 Gm Gel..Gram.) 15 gm PO Q15M PRN; Protocol PRN Reason: per Hypoglycemia Standing Ord. Lactated Ringer's (Lr) 1,000 mls @ 80 mls/hr IVCONT .[id number] [facility] Last Admin: 05/18/22 08:40 Dose: 80 mls/hr Insulin Glargine (Insulin Glargine,Hum.Rec.Anlog 100 Unit/Ml 10 Ml Vial) 42 unit SUBCUT DAILY [facility] Last Admin: 05/18/22 08:31 Dose: 42 unit Insulin Human Lispro (Insulin Lispro 100 Unit/Ml 3 Ml Vial) 0 unit SUBCUT QIDACHS [facility]; Protocol Last Admin: 05/18/22 08:19 Dose: Not Given Labetalol HCl (Labetalol Hcl 200 Mg Tablet) 200 mg PO BID [facility]; Protocol Last Admin: 05/18/22 08:34 Dose: 200 mg Losartan Potassium (Losartan Potassium 50 Mg Tablet) 50 mg PO DAILY [facility]; Protocol Last Admin: 05/18/22 08:33 Dose: 50 mg Meclizine HCl (Meclizine Hcl 25 Mg Tablet) 25 mg PO Q6H PRN PRN Reason: Dizziness Melatonin (Melatonin 3 Mg Tablet) 3 mg PO BEDTIME PRN PRN Reason: Insomnia Metoclopramide HCl (Metoclopramide Hcl 5 Mg Tablet) 5 mg PO QID [facility] Last Admin: 05/18/22 08:33 Dose: 5 mg Multivitamins/Vitamin C (Multivitamin Tablet) 1 tab PO DAILY [facility] Last Admin: 05/18/22 08:32 Dose: 1 tab Ondansetron HCl (Ondansetron Hcl 4 Mg/2 Ml Vial) 4 mg IVPUSH Q8H PRN PRN Reason: Nausea and Vomiting Pharmacy Consult (Consult Rx Perform Med Rec) 1 each MISCELLANE ONCE PRN PRN Reason: Consult order Simethicone (Simethicone 80 Mg Tab.Chew) 160 mg PO TID [facility] Last Admin: 05/18/22 08:32 Dose: 160 mg Sodium Chloride (0.9 % Sodium Chloride Flush 3 Ml Syringe) 3 ml IVFLUSH QSHIFT [facility] Last Admin: 05/18/22 08:36 Dose: 3 ml Trazodone HCl (Trazodone Hcl 50 Mg Tablet) 150 mg PO BEDTIME PRN PRN Reason: Sleep Last Admin: 05/17/22 22:12 Dose: 150 mg Vitamin D (Cholecalciferol (Vitamin D3) 25 Mcg Tablet) 50 mcg PO DAILY [facility] Last Admin: 05/18/22 08:35 Dose: 50 mcg Home Medications Medication Instructions Recorded Confirmed Last Taken Type venlafaxine 150 mg 150 mg PO DAILY 10/30/21 05/16/22 05/16/22 History capsule,extended release 24 hr multivitamin with folic acid 400 1 tab PO DAILY 03/06/22 05/16/22 05/16/22 History mcg tablet (Tab-A-George) pen needle, diabetic 32 gauge x #50 ea 03/06/22 04/16/22 Unknown History 06/14 ([facility] Pen Needle) bupropion HCl 150 mg 24 hr tablet, 150 mg PO DAILY 05/16/22 05/16/22 05/16/22 History extended release furosemide 20 mg tablet (Lasix) 20 mg PO BIDWM 05/16/22 05/16/22 05/16/22 History insulin aspart U-100 100 unit/mL 14 unit subcut TIDAC 05/16/22 05/16/22 05/16/22 History (3 mL) subcutaneous pen (Novolog FlexPen U-100 Insulin aspart) insulin glargine U-300 conc 300 70 unit subcut DAILY 05/16/22 05/16/22 05/15/22 History unit/mL (3 mL) subcutaneous pen (Toujeo Max U-300 SoloStar) meclizine 25 mg tablet 25 mg PO Q6H PRN Dizziness 05/16/22 05/16/22 Unknown History trazodone 150 mg tablet 150 mg PO BEDTIME PRN Sleep 05/16/22 05/16/22 05/15/22 History Physical Exam Vital Signs: Last Vital Signs Temp 98.7 F 05/18/22 07:46 Pulse 86 05/18/22 07:46 Resp 18 05/18/22 07:46 BP 173/80 H 05/18/22 07:46 Pulse Ox 92 05/18/22 07:46 O2 Del Method 05/18/22 07:46 BMI result Body Mass Index 34.7 Const General: no acute distress HEENT Head: Yes normocephalic and Yes atraumatic Neck Neck: Yes supple Resp Auscultation: diminished lung sounds Cardio Heart sounds: S1 normal heart sound present and S2 normal heart sound present GI Palpation (GI): Soft to palpation and nontender Extrem General: Yes no pedal edema Results Lab Results 05/17/22 07:26 05/18/22 05:20 Lab results: Chemistry 05/16/22 05/16/22 05/17/22 13:43 20:17 07:26 Sodium 129 L 131 L 133 L Potassium 4.0 D 4.4 4.0 Carbon Dioxide 19 L 17 L 17 L BUN 48 H 48 H 44 H Creatinine 3.13 H 3.14 H 2.84 H Calcium 8.5 D 8.7 8.9 05/18/22 05:20 Sodium 134 L Potassium 3.6 Carbon Dioxide 21 L BUN 45 H Creatinine 3.21 H Calcium 8.8 Hematology 05/16/22 05/17/22 13:43 07:26 WBC 10.8 11.1 H Hgb 9.1 L D 9.6 L Plt Count 192 D 214 Urinalysis 05/16/22 14:34 Urine Color Dark Yellow Urine Appearance Clear Urine pH 6.0 Ur Specific [place] 1.010 Urine Protein 100 (2+) H Urine Glucose (UA) Negative Urine Ketones Negative Urine Blood Trace H Urine Nitrite Negative Ur Leukocyte Esterase Negative Urine RBC 0-2 Urine WBC 0-5 Ur Squamous Epith Cells 0-2 Hyaline Casts 0-2 Assessment and Plan (1) LEDA (acute kidney injury): Status: Acute (2) Metabolic acidosis: Status: Acute (3) CKD (chronic kidney disease) stage 4, GFR 15-29 ml/min: Status: Acute Plan LEDA due to compromised kidney perfusion no obstruction by CT scan of the abdomen known severe CKD due to DM/HTN baseline Scr 2.5-3 mg/dl followed by Dr Stevenson REC IVF reduce gabapentin 300 mg renally dosed follow kidney function and electrolytes Time Spent With Patient Time: Total time managing care of this patient today ____ minutes. Procedures Date of Service Date of Service: 05/18/22
--- NOTE | 2022-05-18 10:56 | MHC.CM.PN ---
PER MD ROUNDS, PT NOT YET MEDICALLY CLEARED DCP REMAINS HOME WITH [facility]UMPTION OF [facility] FOR DAILY MED ADMINISTRATION FAMILY TO TRANSPORT
[2022-05-18 11:39] LABS: Glucose, Whole Blood 234 mg/dL (60-115)
[2022-05-18] MEDS: Insulin Lispro 100 UNIT/ML 3 ML VIAL SUBCUT ×3 (12:19→20:31)
--- NOTE | 2022-05-18 13:04 | HO.PM.IMPN ---
Subjective Subjective Date of Service: 05/18/22 Interval History: Tolerating diet, no nausea, no vomiting, no abdominal pain, denies fever, no chills, no other acute issues overnight. Review of Systems General no headache, no dizziness, no fever, chills. CVS no chest pain, no palpitation. Respiratory no cough, no sob Gastrointestinal no nausea, no vomiting, no abdominal pain Review of Systems: Yes all other systems are reviewed and are negative Physical Exam Vital Signs: Vital Signs: Last Vital Signs Temp 98.7 F 05/18/22 07:46 Pulse 86 05/18/22 07:46 Resp 18 05/18/22 07:46 BP 173/80 H 05/18/22 07:46 Pulse Ox 92 05/18/22 07:46 O2 Del Method 05/18/22 07:46 BMI result Body Mass Index 34.7 Const: Other: General awake aler t x3, resting comf ortably in no acut e distress.? Neck? supple no JVD. CV S? regular rate rh ythm, Respiratory lungs clear to aus cultation, no resp iratory distress, no rhonchi. Gastro intestinal abdomen soft, nontender, bowel sounds audib le,? no guarding , no rigidity. Extr emities no edema. Neuro nonfocal pat ient moving all 4 extremity speech c lear. Skin pallor Psych appropriate affect Objective Data Active Medications Amlodipine Besylate (Amlodipine Besylate 10 Mg Tablet) 10 mg PO DAILY [facility]; Protocol Last Admin: 05/18/22 08:32 Dose: 10 mg Documented By: GUI Bupropion HCl (Bupropion Hcl Xl 150 Mg Tab.Er.24h) 150 mg PO DAILY [facility] Last Admin: 05/18/22 08:32 Dose: 150 mg Documented By: GUI Clonazepam (Clonazepam 0.5 Mg Tablet) 0.5 mg PO TID PRN PRN Reason: anxiety Last Admin: 05/17/22 19:58 Dose: 0.5 mg Documented By: CASTILM Dextrose (Dextrose 50 % 25 Gm/50 Ml Syringe) 25 gm IVPUSH Q15M PRN; Protocol PRN Reason: per Hypoglycemia Standing Ord. Docusate Sodium (Docusate Sodium 100 Mg Capsule) 100 mg PO DAILY PRN PRN Reason: Constipation Enoxaparin Sodium (Enoxaparin Sodium 40 Mg/0.4 Ml Syringe) 40 mg SUBCUT Q24H [facility] Last Admin: 05/17/22 19:57 Dose: 40 mg Documented By: CASTILLeanne Famotidine (Famotidine 20 Mg Tablet) 20 mg PO BID [facility] Last Admin: 05/18/22 08:32 Dose: 20 mg Documented By: GUI Gabapentin (Gabapentin 300 Mg Capsule) 300 mg PO BEDTIME [facility] Glucose (Glucose Gel 15 Gm Gel..Gram.) 15 gm PO Q15M PRN; Protocol PRN Reason: per Hypoglycemia Standing Ord. Lactated Ringer's (Lr) 1,000 mls @ 80 mls/hr IVCONT .[id number] [facility] Stop: 05/18/22 20:14 Last Admin: 05/18/22 08:40 Dose: 80 mls/hr Documented By: GUI Insulin Glargine (Insulin Glargine,Hum.Rec.Anlog 100 Unit/Ml 10 Ml Vial) 42 unit SUBCUT DAILY [facility] Last Admin: 05/18/22 08:31 Dose: 42 unit Documented By: GUI Insulin Human Lispro (Insulin Lispro 100 Unit/Ml 3 Ml Vial) 0 unit SUBCUT QIDACHS [facility]; Protocol Last Admin: 05/18/22 12:19 Dose: 4 unit Documented By: GUI Labetalol HCl (Labetalol Hcl 200 Mg Tablet) 200 mg PO BID [facility]; Protocol Last Admin: 05/18/22 08:34 Dose: 200 mg Documented By: GUI Losartan Potassium (Losartan Potassium 50 Mg Tablet) 50 mg PO DAILY [facility]; Protocol Last Admin: 05/18/22 08:33 Dose: 50 mg Documented By: GUI Meclizine HCl (Meclizine Hcl 25 Mg Tablet) 25 mg PO Q6H PRN PRN Reason: Dizziness Melatonin (Melatonin 3 Mg Tablet) 3 mg PO BEDTIME PRN PRN Reason: Insomnia Metoclopramide HCl (Metoclopramide Hcl 5 Mg Tablet) 5 mg PO QID [facility] Last Admin: 05/18/22 12:20 Dose: 5 mg Documented By: GUI Multivitamins/Vitamin C (Multivitamin Tablet) 1 tab PO DAILY [facility] Last Admin: 05/18/22 08:32 Dose: 1 tab Documented By: GUI Ondansetron HCl (Ondansetron Hcl 4 Mg/2 Ml Vial) 4 mg IVPUSH Q8H PRN PRN Reason: Nausea and Vomiting Pharmacy Consult (Consult Rx Perform Med Rec) 1 each MISCELLANE ONCE PRN PRN Reason: Consult order Simethicone (Simethicone 80 Mg Tab.Chew) 160 mg PO TID [facility] Last Admin: 05/18/22 08:32 Dose: 160 mg Documented By: GUI Sodium Chloride (0.9 % Sodium Chloride Flush 3 Ml Syringe) 3 ml IVFLUSH QSHIFT [facility] Last Admin: 05/18/22 08:36 Dose: 3 ml Documented By: GUI Trazodone HCl (Trazodone Hcl 50 Mg Tablet) 150 mg PO BEDTIME PRN PRN Reason: Sleep Last Admin: 05/17/22 22:12 Dose: 150 mg Documented By: CASTILLeanne Vitamin D (Cholecalciferol (Vitamin D3) 25 Mcg Tablet) 50 mcg PO DAILY [facility] Last Admin: 05/18/22 08:35 Dose: 50 mcg Documented By: GUI Labs 05/17/22 07:26 05/18/22 05:20 Labs: Laboratory Results - last 24 hr 05/16/22 05/16/22 05/17/22 13:43 13:43 18:16 Anion Gap Estim Creat Clear Calc Estimated GFR POC Glucose 178 H Random Glucose Calcium Total Bilirubin Direct Bilirubin AST ALT Alkaline Phosphatase Total Protein Albumin Hepatitis A IgM Ab Nonreactive Hepatitis C Ab (EIA) Nonreactive 05/17/22 05/18/22 05/18/22 20:58 05:20 07:51 Anion Gap 17 Estim Creat Clear Calc 30.9 Estimated GFR 20 POC Glucose 180 H 149 H Random Glucose 147 H Calcium 8.8 Total Bilirubin 3.5 H Direct Bilirubin 2.4 H AST 63 H ALT 138 H Alkaline Phosphatase 310 H Total Protein 6.4 L Albumin 3.4 L Hepatitis A IgM Ab Hepatitis C Ab (EIA) 05/18/22 11:31 Anion Gap Estim Creat Clear Calc Estimated GFR POC Glucose 234 H Random Glucose Calcium Total Bilirubin Direct Bilirubin AST ALT Alkaline Phosphatase Total Protein Albumin Hepatitis A IgM Ab Hepatitis C Ab (EIA) Microbiology Microbiology Results: Microbiology 05/16/22 19:22 Blood Culture - Preliminary Blood - Venous No growth after 24 hours. 02/15/23 19:22 Blood Culture - Preliminary Blood - Venous No growth after 24 hours. Assessment and Plan (1) Elevated LFTs: Status: Acute Plan 56-year-old male with history of insulin-dependent type 2 diabetes, Yang, hypertension, depression, conversion disorder, chronic constipation, vertigo, CKD stage 3, and obesity to be observed for elevated LFTs. #Elevated LFTs- unclear etiology -Nontender abd, negative Pathak sign -Abd u/s showed cholelithiasis ,gallbladder wall thickening suggestive of possible cholecystitis, CBD normal.? MRCP showed no evidence of cholecystitis, no biliary obstruction, tiny gallstone near gallbladder neck. -hepatitis A and C antibody nonreactive Repeat liver enzymes trending down, alk-phos remains elevated -spoke with Dr. Ac, question patient periodically passing sludge or gall stone causing intermittent LFT elevation/consult surgery for possible cholecystectomy Follow LFTs, serologies for ethan, autoimmune and hepatitis pending, hold statins Liver biopsy if LFTs worsening # insulin-dependent type 2 diabetes without hyperglycemia -stable blood sugars, continue basal insulin,Humalog sliding scale, home by mouth meds on hold -POC glucose -diabetic diet # diabetic polyneuropathy -continue gabapentin # diabetic gastroparesis -continue home meds # hypertension-reasonably controlled on multiple home medications losartan 50 mg, labetalol 200 b.i.d. and Norvasc 10 mg, follow BP # depression/anxiety/conversion disorder -continue home meds # mild hyponatremia chronic question related to kidney disease # LEDA on chronic kidney disease stage 4 Noted to have worsening creatinine ,placed on IV fluid x 1L ,consulted Nephrology they agree with treatment renally dose medications , follow BMP # obesity will recommend low-calorie diet DVT prophylaxis-Lovenox Full code Patient will need continued inpatient hospitalization for monitoring of LFTs Time Spent With Patient Time: Total time managing care of this patient today ____ minutes. Quality Stroke Does the patient have a stroke diagnosis?: No VTE Prior VTE?: No VTE Risk Level:: Medical - moderate - high VTE Device Contraindication: Treatment Not Indicated VTE Drug Contraindication: N/A - Med Ordered
--- NOTE | 2022-05-18 14:01 | P.CONGS_ITS ---
History of Present Illness Consult details Consult date: 05/18/22 <Priscila Gardiner PA-C - Last Filed: 05/18/22 14:22> Reason for consult: gallstones (?transient CBD obstruction) <Priscila Gardiner PA-C - Last Filed: 05/18/22 14:22> Requesting physician: Med Mcneal <Priscila Gardiner PA-C - Last Filed: 05/18/22 14:22> Narrative: 56-year-old male with history of insulin-dependent type 2 diabetes, hypertension, vertigo, CKD stage 3 who presented to the ED with complaints of dizziness, insomnia for 4 days. This was associated with dry cough, chills and runny nose. He also reported severe intermittent, sharp epigastric pain. Work up in the ED included a CT scan/ABD US which showed gallstones, gallbladder wall thickening. He also had labs significant for total bilirubin 4.2, direct bilirubin 2.7, AST 74, ALT 191, alkaline phosphatase 226. He underwent MRCP which was negative for CBD obstruction and showed no gallbladder wall thickening. He was admitted to medicine for further workup. Surgery was consulted for possible intermittent CBD obstruction. Patient did have similar presentations in 06/2021 and 07/2020 with admission in 07/2020 though hyperbilirubinemia more significant at 10.5. This current episode occurred at night. He denies provoking or alleviating factors. He denies nausea or vomiting. He denies change in skin color, melena, pale stools but noted marie ge colored urine. Denies etoh use, illicit drug use, or smoking. He uses about 2g tylenol daily for knee pain. No sick contacts and no herbal supplements or change in medications. He denies any current abdominal pain and is eating a solid diet without problem. His LFTs have been downtrending. <ENIO Duncan Last Filed: 05/18/22 14:22> Review of Systems Constitutional: Constitutional: Denies chills, Denies fever(s) and Denies malaise <ENIO Duncan Last Filed: 05/18/22 14:22> ENT: Reports vertigo and Reports dizziness <ENIO Duncan Last Filed: 05/18/22 14:22> Cardiovascular: Cardiovascular: Denies chest pain and Denies dyspnea <Priscila Gardiner PA-C Last Filed: 05/18/22 14:22> Respiratory: Respiratory: Denies dyspnea <Priscila Gardiner PA-C Last Filed: 05/18/22 14:22> Gastrointestinal: Gastrointestinal: Denies abdominal pain, Denies diarrhea, Denies nausea and Denies vomiting <Priscila Gardiner PA-C Last Filed: 05/18/22 14:22> Integumentary/Breasts: Skin/Breast: Denies jaundice <Priscila Gardiner PA-C Last Filed: 05/18/22 14:22> Neurologic: Reports vertigo and Reports dizziness <MARIS Duncan Last Filed: 05/18/22 14:22> PMF Past Medical History Medical History: Medical History Anxiety Chronic hyperglycemia CKD (chronic kidney disease) stage 3, GFR 30-59 ml/min Depression Diabetes Diabetes type 2, uncontrolled Diabetic nephropathy associated with type 2 diabetes mellitus Diabetic neuropathy associated with type 2 diabetes mellitus Dyslipidemia Essential hypertension GERD (gastroesophageal reflux disease) High cholesterol Hypercalcemia Hyperlipidemia 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 <Priscila Gardiner PA-C Last Filed: 05/18/22 14:22> Family history: reviewed and not pertinent <Priscila Gardiner PA-C Last Filed: 0 05/18/22 14:22> Surgical History Surgical History: Surgical History H/O colonoscopy History of esophagogastroduodenoscopy (EGD) Hx of arthroscopy of knee Hx of arthroscopy of right knee <Priscila Gardiner PA-C - Last Filed: 05/18/22 14:22> Social History Social History: Social History Household Members: Family Household Members Other:: SISTER Housing: Apartment Do you presently have visiting nurse or other home services: Yes Alcohol intake: never Patient Tobacco Use Status: Never used Tobacco e-Cigarette/Vaping Use: Never Used Second Hand Smoke Exposure: Yes (HISTORY OF SECOND HAND SMOKE EXPOSURE) Advance Directives Date on File: 05/05/20 service: No Current occupational status: disabled Current occupation: right handed Cognitive needs: No Hearing needs: No Vision needs: No <Priscila Gardiner PA-C - Last Filed: 05/18/22 14:22> Meds Allergies/Adverse reactions: Allergies Allergy/AdvReac Type Severity Reaction Status Date / Time cephalexin [From KEFLEX] Allergy Mild ITCHY Verified 05/09/22 12:52 THROAT lisinopril [LISINOPRIL] Allergy Unknown SWELLING Verified 05/09/22 12:52 COUGH <Priscila Gardiner PA-C - Last Filed: 05/18/22 14:22> Active Medications: Current Medications Amlodipine Besylate (Amlodipine Besylate 10 Mg Tablet) 10 mg PO DAILY [facility]; Protocol Last Admin: 05/18/22 08:32 Dose: 10 mg Bupropion HCl (Bupropion Hcl Xl 150 Mg Tab.Er.24h) 150 mg PO DAILY [facility] Last Admin: 05/18/22 08:32 Dose: 150 mg Clonazepam (Clonazepam 0.5 Mg Tablet) 0.5 mg PO TID PRN PRN Reason: anxiety Last Admin: 05/17/22 19:58 Dose: 0.5 mg Dextrose (Dextrose 50 % 25 Gm/50 Ml Syringe) 25 gm IVPUSH Q15M PRN; Protocol PRN Reason: per Hypoglycemia Standing Ord. Docusate Sodium (Docusate Sodium 100 Mg Capsule) 100 mg PO DAILY PRN PRN Reason: Constipation Enoxaparin Sodium (Enoxaparin Sodium 40 Mg/0.4 Ml Syringe) 40 mg SUBCUT Q24H [facility] Last Admin: 05/17/22 19:57 Dose: 40 mg Famotidine (Famotidine 20 Mg Tablet) 20 mg PO BID [facility] Last Admin: 05/18/22 08:32 Dose: 20 mg Gabapentin (Gabapentin 300 Mg Capsule) 300 mg PO BEDTIME [facility] Glucose (Glucose Gel 15 Gm Gel..Gram.) 15 gm PO Q15M PRN; Protocol PRN Reason: per Hypoglycemia Standing Ord. Lactated Ringer's (Lr) 1,000 mls @ 80 mls/hr IVCONT .[id number] [facility] Stop: 05/18/22 20:14 Last Admin: 05/18/22 08:40 Dose: 80 mls/hr Insulin Glargine (Insulin Glargine,Hum.Rec.Anlog 100 Unit/Ml 10 Ml Vial) 42 unit SUBCUT DAILY [facility] Last Admin: 05/18/22 08:31 Dose: 42 unit Insulin Human Lispro (Insulin Lispro 100 Unit/Ml 3 Ml Vial) 0 unit SUBCUT QIDAC HS [facility]; Protocol Last Admin: 05/18/22 12:19 Dose: 4 unit Labetalol HCl (Labetalol Hcl 200 Mg Tablet) 200 mg PO BID [facility]; Protocol Last Admin: 05/18/22 08:34 Dose: 200 mg Losartan Potassium (Losartan Potassium 50 Mg Tablet) 50 mg PO DAILY [facility]; Protocol Last Admin: 05/18/22 08:33 Dose: 50 mg Meclizine HCl (Meclizine Hcl 25 Mg Tablet) 25 mg PO Q6H PRN PRN Reason: Dizziness Melatonin (Melatonin 3 Mg Tablet) 3 mg PO BEDTIME PRN PRN Reason: Insomnia Metoclopramide HCl (Metoclopramide Hcl 5 Mg Tablet) 5 mg PO QID [facility] Last Admin: 05/18/22 12:20 Dose: 5 mg Multivitamins/Vitamin C (Multivitamin Tablet) 1 tab PO DAILY [facility] Last Admin: 05/18/22 08:32 Dose: 1 tab Ondansetron HCl (Ondansetron Hcl 4 Mg/2 Ml Vial) 4 mg IVPUSH Q8H PRN PRN Reason: Nausea and Vomiting Pharmacy Consult (Consult Rx Perform Med Rec) 1 each MISCELLANE ONCE PRN PRN Reason: Consult order Simethicone (Simethicone 80 Mg Tab.Chew) 160 mg PO TID [facility] Last Admin: 05/18/22 08:32 Dose: 160 mg Sodium Chloride (0.9 % Sodium Chloride Flush 3 Ml Syringe) 3 ml IVFLUSH QSHIFT [facility] Last Admin: 05/18/22 08:36 Dose: 3 ml Trazodone HCl (Trazodone Hcl 50 Mg Tablet) 150 mg PO BEDTIME PRN PRN Reason: Sleep Last Admin: 05/17/22 22:12 Dose: 150 mg Vitamin D (Cholecalciferol (Vitamin D3) 25 Mcg Tablet) 50 mcg PO DAILY [facility] Last Admin: 05/18/22 08:35 Dose: 50 mcg <Priscila Gardiner PA-C - Last Filed: 05/18/22 14:22> Home medications: Home Medications Medication Instructions Recorded Confirmed Last Taken Type venlafaxine 150 mg 150 mg PO DAILY 10/30/21 05/16/22 05/16/22 History capsule,extended release 24 hr multivitamin with folic acid 400 1 tab PO DAILY 03/06/22 05/16/22 05/16/22 History mcg tablet (Tab-A-George) pen needle, diabetic 32 gauge x #50 ea 03/06/22 04/16/22 Unknown History 06/14 ([facility] Pen Needle) bupropion HCl 150 mg 24 hr tablet, 150 mg PO DAILY 05/16/22 05/16/22 05/16/22 History extended release furosemide 20 mg tablet (Lasix) 20 mg PO BIDWM 05/16/22 05/16/22 05/16/22 History insulin aspart U-100 100 unit/mL 14 unit subcut TIDAC 05/16/22 05/16/22 05/16/22 History (3 mL) subcutaneous pen (Novolog FlexPen U-100 Insulin aspart) insulin glargine U-300 conc 300 70 unit subcut DAILY 05/16/22 05/16/22 05/15/22 History unit/mL (3 mL) subcutaneous pen (Toujeo Max U-300 SoloStar) meclizine 25 mg tablet 25 mg PO Q6H PRN Dizziness 05/16/22 05/16/22 Unknown History trazodone 150 mg tablet 150 mg PO BEDTIME PRN Sleep 05/16/22 05/16/22 05/15/22 History <Priscila Gardiner PA-C - Last Filed: 05/18/22 14:22> Physical Exam Vital Signs: Vital Signs: Last Vital Signs Temp 98.7 F 05/18/22 07:46 Pulse 86 05/18/22 07:46 Resp 18 05/18/22 07:46 BP 173/80 H 05/18/22 07:46 Pulse Ox 92 05/18/22 07:46 O2 Del Method 05/18/22 07:46 BMI result Body Mass Index 34.7 <Priscila VillarMARIS mishraAminah Mathews Last Filed: 05/18/22 14:22> Const: General: comfortable, no acute distress and alert <Priscila ZuleykaCATHERINE mishraJame Mathews Last Filed: 05/18/22 14:22> Resp: Effort & Inspection: normal respiratory effort <Priscila VillarMARIS mishraAminah Mathews Last Filed: 05/18/22 14:22> GI: Other: protuberant abd <Priscila CATHERINE GardinerJame - Last Filed: 05/18/22 14:22> Inspection: No distended <Priscila ZuleykaMARIS mishraAminah Mathews Last Filed: 05/18/22 14:22> Palpation (GI): Soft to palpation, nontender, no guarding, not rigid and No Rebound tenderness present <Priscila VillarCATHERINE mishraJame Mathews Last Filed: 05/18/22 14:22> Percussion: Yes normal to percussion <Priscila ZuleykaCATHERINE mishraJame Mathews Last Filed: 05/18/22 14:22> Skin: General skin exam: jaundice <Priscila ZuleykaMARIS mishraAminah Mathews Last Filed: 05/18/22 14:22> Results Labs Result diagrams: 05/17/22 07:26 05/18/22 05:20 <MARIS DuncanAminah Mathews Last Filed: 05/18/22 14:22> Labs: Abnormal lab results 05/17/22 05/17/22 05/18/22 Range/Units 18:16 20:58 05:20 Sodium 134 L (135-145) mmol/L Carbon Dioxide 21 L (22-29) mmol/L BUN 45 H (9-16) mg/dL Creatinine 3.21 H (0.5-1.4) mg/dL POC Glucose 178 H 180 H (60-115) mg/dL Random Glucose 147 H (60-115) mg/dL Total Bilirubin 3.5 H (0.0-1.0) mg/dL Direct Bilirubin 2.4 H (0.0-0.5) mg/dL AST 63 H (5-37) U/L ALT 138 H (0-40) U/L Alkaline Phosphatase 310 H (39-117) U/L Total Protein 6.4 L (6.5-8.0) g/dL Albumin 3.4 L (3.5-5.0) g/dL 05/18/22 05/18/22 Range/Units 07:51 11:31 Sodium (135-145) mmol/L Carbon Dioxide (22-29) mmol/L BUN (9-16) mg/dL Creatinine (0.5-1.4) mg/dL POC Glucose 149 H 234 H (60-115) mg/dL Random Glucose (60-115) mg/dL Total Bilirubin (0.0-1.0) mg/dL Direct Bilirubin (0.0-0.5) mg/dL AST (5-37) U/L ALT (0-40) U/L Alkaline Phosphatase (39-117) U/L Total Protein (6.5-8.0) g/dL Albumin (3.5-5.0) g/dL BMP 05/18/22 05:20 Sodium 134 L Potassium 3.6 Chloride 100 Carbon Dioxide 21 L BUN 45 H Creatinine 3.21 H Calcium 8.8 Liver Function 05/18/22 Range/Units 05:20 Total Bilirubin 3.5 H (0.0-1.0) mg/dL Direct Bilirubin 2.4 H (0.0-0.5) mg/dL AST 63 H (5-37) U/L ALT 138 H (0-40) U/L Alkaline Phosphatase 310 H (39-117) U/L Albumin 3.4 L (3.5-5.0) g/dL Urine 05/16/22 Range/Units 14:34 Urine Color Dark Yellow Urine Appearance Clear Urine pH 6.0 (5.0-9.0) Ur Specific [place] 1.010 (1.005-1.025) Urine Protein 100 (2+) H (Neg-Trace) mg/dL Urine Glucose (UA) Negative (Negative) mg/dL All other labs normal. <Priscila Gardiner PA-C - Last Filed: 05/18/22 14:22> Imaging Abdomen CT scan report/results: report reviewed <Priscila Gardiner PA-C - Last Filed: 05/18/22 14:22> Assessment and Plan (1) Elevated LFTs: Status: Acute <Priscila Gardiner PA-C - Last Filed: 05/18/22 14:22> (2) Gallstones: Status: Acute <Priscila Gardiner PA-C - Last Filed: 05/18/22 14:22> currently denies abdominal pain or tenderness exam soft LFTs downtrending MRCP does not show CBD stones or cholecystitis await liver workup as ordered by GI no urgent surgical intervention at this time seen and examined independently - agree with CATHERINE higuera Hospitalist <Anand Dias MD - Last Filed: 05/18/22 14:33> 56 year old male with multiple episodes of transaminitis associated with epigastric pain found to have gallstones on imaging. LFTs now downtrending. He has been seen by GI who ordered serologies for wilsons, autoimmune, and infectious hepatitis. These labs are pending. If these are normal, then transient CBD obstruction from gallstone may be source and can discuss possible cholecystectomy. Patient is comfortable with plan, all questions answered. Case discussed with Dr. Dias. Will cont to follow. <MARIS Duncan - Last Filed: 05/18/22 14:22> Time Spent With Patient Time: Total time managing care of this patient today ____ minutes. <Priscila Gardiner PA-C - Last Filed: 05/18/22 14:22> Procedures Date of Service Date of Service: 05/18/22 <Priscila Gardiner PA-C - Last Filed: 05/18/22 14:22>
[2022-05-18 14:56] VITALS: BP 178/79; PULSE 85; RESP 18; TEMP 37; O2SAT 98
[2022-05-18 16:46] LABS: Glucose, Whole Blood 177 mg/dL (60-115)
[2022-05-18] MEDS: clonazePAM 0.5 MG TABLET PO (17:03)
[2022-05-18] MEDS: ondansetron HCL 4 MG/2 ML VIAL IVPUSH (17:03)
[2022-05-18 19:58] VITALS: BP 181/79; PULSE 85; RESP 18; TEMP 36.9; O2SAT 98
[2022-05-18 20:13] LABS: Glucose, Whole Blood 240 mg/dL (60-115)
[2022-05-18] MEDS: Enoxaparin Sodium 40 MG/0.4 ML SYRINGE SUBCUT (20:30)
[2022-05-19 03:42] VITALS: BP 172/88; PULSE 80; RESP 18; TEMP 36.6; O2SAT 96
--- NOTE | 2022-05-19 05:32 | PC.NURSE ---
Patient oob with cane and standby assist. Slept well between care. safety maintained.
[2022-05-19 06:33] LABS: Hematocrit 24.5 % (42.0-52.0); Hemoglobin 8.5 g/dl (14.0-18.0); Mean Corpuscular HGB Conc 34.7 g/dl (31.0-36.0); Mean Corpuscular Hemoglobin 29.4 pg (27.0-33.0); Mean Corpuscular Volume 84.8 fL (80.0-98.0); Mean Platelet Volume 10.5 fL (9.4-12.4); Platelet Count 204 X10*3/uL (160-400); Red Blood Count 2.89 X10*6/uL (4.60-5.80); Red Cell Distribution Width 12.6 % (11.0-16.0); White Blood Count 7.1 X10*3/uL (4.8-10.8)
[2022-05-19 06:56] LABS: Alanine Aminotransferase 142 U/L (0-40); Albumin Level 3.3 g/dL (3.5-5.0); Alkaline Phosphatase 344 U/L (39-117); Anion Gap 14 (12-20); Aspartate Amino Transferase 71 U/L (5-37); Bilirubin Direct 1.5 mg/dL (0.0-0.5); Bilirubin Total 2.3 mg/dL (0.0-1.0); Blood Urea Nitrogen 47 mg/dL (9-16); Calcium 8.7 mg/dL (8.4-10.2); Carbon Dioxide 19 mmol/L (22-29); Chloride 103 mmol/L (96-108); Creatinine Clr Calc Pharmacy 31.5; Estimated Glomerular Filt Rate 21; Glucose Random 135 mg/dL (60-115); Potassium 3.8 mmol/L (3.3-5.1); Sodium 132 mmol/L (135-145); Total Protein 6.1 g/dL (6.5-8.0)
[2022-05-19 07:02] VITALS: BP 160/67; PULSE 77; RESP 18; TEMP 36.6; O2SAT 91
[2022-05-19 07:55] LABS: Glucose, Whole Blood 142 mg/dL (60-115)
[2022-05-19] MEDS: 0.9 % Sodium Chloride Flush 3 ML SYRINGE IVFLUSH ×3 (09:19→21:52)
[2022-05-19] MEDS: Labetalol HCL 200 MG TABLET PO ×2 (09:19→21:46)
[2022-05-19] MEDS: Multivitamin TABLET 1 TAB PO (09:20)
[2022-05-19] MEDS: Insulin Glargine,Hum.rec.anlog 100 UNIT/ML 10 ML VIAL 42 UNIT SUBCUT (09:20)
[2022-05-19] MEDS: buPROPion HCl XL 150 MG TAB.ER.24H PO (09:20)
[2022-05-19] MEDS: amLODIPine Besylate 10 MG TABLET PO (09:20)
[2022-05-19] MEDS: Metoclopramide HCl 5 MG TABLET PO ×4 (09:20→21:44)
[2022-05-19] MEDS: Simethicone 80 MG TAB.CHEW 160 MG PO ×3 (09:20→21:44)
[2022-05-19] MEDS: Famotidine 20 MG TABLET PO ×2 (09:20→21:44)
[2022-05-19] MEDS: Losartan Potassium 50 MG TABLET PO (09:20)
[2022-05-19] MEDS: Cholecalciferol (Vitamin D3) 25 MCG TABLET 50 MCG PO (09:21)
--- NOTE | 2022-05-19 10:15 | PM.PNGS ---
Subjective Subjective Date of Service: 05/19/22 Interval history: denies abdl pain says his BP has been high tolerating diet Physical Exam Vital Signs: Vital Signs: Last Vital Signs Temp 98 F 05/19/22 07:02 Pulse 77 05/19/22 07:02 Resp 18 05/19/22 07:02 BP 160/67 H 05/19/22 07:02 Pulse Ox 91 L 05/19/22 07:02 O2 Del Method 05/19/22 07:02 O2 Flow Rate 2 05/19/22 07:02 BMI result Body Mass Index 34.7 Const: General: comfortable and no acute distress Resp: Effort & Inspection: normal respiratory effort Cardio: Rate: regular rate GI: Palpation (GI): Soft to palpation, not firm, nontender and no guarding Objective Data Active Medications Amlodipine Besylate (Amlodipine Besylate 10 Mg Tablet) 10 mg PO DAILY [facility]; Protocol Last Admin: 05/19/22 09:20 Dose: 10 mg Documented By: ARCHIE Bupropion HCl (Bupropion Hcl Xl 150 Mg Tab.Er.24h) 150 mg PO DAILY [facility] Last Admin: 05/19/22 09:20 Dose: 150 mg Documented By: ARCHIE Clonazepam (Clonazepam 0.5 Mg Tablet) 0.5 mg PO TID PRN PRN Reason: anxiety Last Admin: 05/18/22 17:03 Dose: 0.5 mg Documented By: GAVIN Dextrose (Dextrose 50 % 25 Gm/50 Ml Syringe) 25 gm IVPUSH Q15M PRN; Protocol PRN Reason: per Hypoglycemia Standing Ord. Docusate Sodium (Docusate Sodium 100 Mg Capsule) 100 mg PO DAILY PRN PRN Reason: Constipation Enoxaparin Sodium (Enoxaparin Sodium 40 Mg/0.4 Ml Syringe) 40 mg SUBCUT Q24H [facility] Last Admin: 05/18/22 20:30 Dose: 40 mg Documented By: RIC Famotidine (Famotidine 20 Mg Tablet) 20 mg PO BID [facility] Last Admin: 05/19/22 09:20 Dose: 20 mg Documented By: ARCHIE Gabapentin (Gabapentin 300 Mg Capsule) 300 mg PO BEDTIME [facility] Last Admin: 05/18/22 20:31 Dose: 300 mg Documented By: RIC Glucose (Glucose Gel 15 Gm Gel..Gram.) 15 gm PO Q15M PRN; Protocol PRN Reason: per Hypoglycemia Standing Ord. Insulin Glargine (Insulin Glargine,Hum.Rec.Anlog 100 Unit/Ml 10 Ml Vial) 42 unit SUBCUT DAILY [facility] Last Admin: 05/19/22 09:20 Dose: 42 unit Documented By: ARCHIE Insulin Human Lispro (Insulin Lispro 100 Unit/Ml 3 Ml Vial) 0 unit SUBCUT QIDACHS [facility]; Protocol Last Admin: 05/19/22 07:21 Dose: Not Given Documented By: ARCHIE Non-Admin Reason: No Insulin Coverage Labetalol HCl (Labetalol Hcl 200 Mg Tablet) 200 mg PO BID [facility]; Protocol Last Admin: 05/19/22 09:19 Dose: 200 mg Documented By: ARCHIE Losartan Potassium (Losartan Potassium 50 Mg Tablet) 50 mg PO DAILY [facility]; Protocol Last Admin: 05/19/22 09:20 Dose: 50 mg Documented By: ARCHIE Meclizine HCl (Meclizine Hcl 25 Mg Tablet) 25 mg PO Q6H PRN PRN Reason: Dizziness Melatonin (Melatonin 3 Mg Tablet) 3 mg PO BEDTIME PRN PRN Reason: Insomnia Metoclopramide HCl (Metoclopramide Hcl 5 Mg Tablet) 5 mg PO QID [facility] Last Admin: 05/19/22 09:20 Dose: 5 mg Documented By: ARCHIE Multivitamins/Vitamin C (Multivitamin Tablet) 1 tab PO DAILY [facility] Last Admin: 05/19/22 09:20 Dose: 1 tab Documented By: ARCHIE Ondansetron HCl (Ondansetron Hcl 4 Mg/2 Ml Vial) 4 mg IVPUSH Q8H PRN PRN Reason: Nausea and Vomiting Last Admin: 05/18/22 17:03 Dose: 4 mg Documented By: GAVIN Pharmacy Consult (Consult Rx Perform Med Rec) 1 each MISCELLANE ONCE PRN PRN Reason: Consult order Simethicone (Simethicone 80 Mg Tab.Chew) 160 mg PO TID [facility] Last Admin: 05/19/22 09:20 Dose: 160 mg Documented By: ARCHIE Sodium Chloride (0.9 % Sodium Chloride Flush 3 Ml Syringe) 3 ml IVFLUSH QSHIFT [facility] Last Admin: 05/19/22 09:19 Dose: 3 ml Documented By: ARCHIE Trazodone HCl (Trazodone Hcl 50 Mg Tablet) 150 mg PO BEDTIME PRN PRN Reason: Sleep Last Admin: 05/17/22 22:12 Dose: 150 mg Documented By: NELY Vitamin D (Cholecalciferol (Vitamin D3) 25 Mcg Tablet) 50 mcg PO DAILY [facility] Last Admin: 05/19/22 09:21 Dose: 50 mcg Documented By: ARCHIE Labs 05/19/22 05:49 05/19/22 05:49 Labs: Laboratory Results - last 24 hr 05/18/22 05/18/22 05/18/22 11:31 16:35 20:01 MCV MCH MCHC RDW Plt Count MPV Absolute Nucleated RBC Nucleated RBC % (auto) Anion Gap Estim Creat Clear Calc Estimated GFR POC Glucose 234 H 177 H 240 H Random Glucose Calcium Total Bilirubin Direct Bilirubin AST ALT Alkaline Phosphatase Total Protein Albumin 05/19/22 05/19/22 05/19/22 05:49 05:49 06:55 MCV 84.8 MCH 29.4 MCHC 34.7 RDW 12.6 Plt Count 204 MPV 10.5 Absolute Nucleated RBC 0.000 Nucleated RBC % (auto) 0.0 Anion Gap 14 Estim Creat Clear Calc 31.5 Estimated GFR 21 POC Glucose 142 H Random Glucose 135 H Calcium 8.7 Total Bilirubin 2.3 H Direct Bilirubin 1.5 H AST 71 H ALT 142 H Alkaline Phosphatase 344 H Total Protein 6.1 L Albumin 3.3 L Microbiology Microbiology Results: Microbiology 05/16/22 19:22 Blood Culture - Preliminary Blood - Venous No growth after 48 hours. 05/16/22 19:22 Blood Culture - Preliminary Blood - Venous No growth after 48 hours. Procedures Date of Service Date of Service: 05/19/22 Progress Note: A&P Assessment and plan (1) Elevated LFTs: Status: Acute Assessment and Plan: no cholecystitis no pain or tenderness bili much improved liver workup as per GI Hg down - follow closely; no evidence of GI bleed (2) Gallstones: Status: Acute Time Spent With Patient Time: Total time managing care of this patient today ____ minutes. Quality Stroke Does the patient have a stroke diagnosis?: No VTE Prior VTE?: No VTE Risk Level:: Medical - moderate - high VTE Device Contraindication: Treatment Not Indicated VTE Drug Contraindication: N/A - Med Ordered
--- NOTE | 2022-05-19 10:29 | PM.PNNEP ---
Subjective Subjective Date of Service: 05/19/22 Interval history: seen and examined no complaints Physical Exam Vital Signs: Vital Signs: Last Vital Signs Temp 98 F 05/19/22 07:02 Pulse 77 05/19/22 07:02 Resp 18 05/19/22 07:02 BP 160/67 H 05/19/22 07:02 Pulse Ox 91 L 05/19/22 07:02 O2 Del Method 05/19/22 07:02 O2 Flow Rate 2 05/19/22 07:02 BMI result Body Mass Index 34.7 Const: General: no acute distress HEENT: Head: Yes normocephalic and Yes atraumatic Neck: Neck: Yes supple Resp: Auscultation: diminished lung sounds Cardio: Heart sounds: S1 normal heart sound present and S2 normal heart sound present GI: Palpation (GI): Soft to palpation and nontender Extrem: General: Yes no pedal edema Objective Data Labs 05/19/22 05:49 05/19/22 05:49 Labs: Laboratory Results - last 24 hr 05/18/22 05/18/22 05/18/22 11:31 16:35 20:01 WBC RBC Hgb Hct MCV MCH MCHC RDW Plt Count MPV Absolute Nucleated RBC Nucleated RBC % (auto) Sodium Potassium Chloride Carbon Dioxide Anion Gap BUN Creatinine Estim Creat Clear Calc Estimated GFR POC Glucose 234 H 177 H 240 H Random Glucose Calcium Total Bilirubin Direct Bilirubin AST ALT Alkaline Phosphatase Total Protein Albumin 05/19/22 05/19/22 05/19/22 05:49 05:49 06:55 WBC 7.1 RBC 2.89 L Hgb 8.5 L Hct 24.5 L MCV 84.8 MCH 29.4 MCHC 34.7 RDW 12.6 Plt Count 204 MPV 10.5 Absolute Nucleated RBC 0.000 Nucleated RBC % (auto) 0.0 Sodium 132 L Potassium 3.8 Chloride 103 Carbon Dioxide 19 L Anion Gap 14 BUN 47 H Creatinine 3.14 H Estim Creat Clear Calc 31.5 Estimated GFR 21 POC Glucose 142 H Random Glucose 135 H Calcium 8.7 Total Bilirubin 2.3 H Direct Bilirubin 1.5 H AST 71 H ALT 142 H Alkaline Phosphatase 344 H Total Protein 6.1 L Albumin 3.3 L Microbiology Microbiology Results: Microbiology 05/16/22 19:22 Blood - Venous Blood Culture - Preliminary No growth after 48 hours. 05/16/22 19:22 Blood - Venous Blood Culture - Preliminary No growth after 48 hours. Procedures Date of Service Date of Service: 05/19/22 Assessment & Plan Assessment and plan (1) LEDA (acute kidney injury): Status: Acute (2) Metabolic acidosis: Status: Acute (3) CKD (chronic kidney disease) stage 4, GFR 15-29 ml/min: Status: Acute Plan kidney function close to baseline LEDA due to compromised kidney perfusion no obstruction by CT scan of the abdomen known severe CKD due to DM/HTN baseline Scr 2.5-3 mg/dl followed by Dr Stevenson REC discontinue IVF follow kidney function and electrolytes Time Spent With Patient Time: Total time managing care of this patient today ____ minutes. Progress Note: Quality Stroke Does the patient have a stroke diagnosis?: No
[2022-05-19 11:34] LABS: Glucose, Whole Blood 165 mg/dL (60-115)
--- NOTE | 2022-05-19 11:43 | P.PNIM_ITS ---
Subjective Subjective Date of Service: 05/19/22 Interval History: This history was taken in Romanian from the patient. tolerating diet, no N/V, no abd pain, no fever Review of Systems Review of Systems: Yes all other systems are reviewed and are negative Physical Exam Vital Signs: Vital Signs: Last Vital Signs Temp 98 F 05/19/22 07:02 Pulse 77 05/19/22 07:02 Resp 18 05/19/22 07:02 BP 160/67 H 05/19/22 07:02 Pulse Ox 91 L 05/19/22 07:02 O2 Del Method 05/19/22 07:02 O2 Flow Rate 2 05/19/22 07:02 BMI result Body Mass Index 34.7 Const: Other: Gen: in no acute distress HEENT: sclera anicteric, moist mucus membranes Neck: supple Lungs: clear to auscultation bilaterally Heart: regular rate and rhythm, no murmurs Abd: soft, non-tender, non-distended Ext: no edema Skin: warm/well-perfused Neuro: alert and oriented x3, no focal findings Psych: appropriate affect Objective Data Active Medications Amlodipine Besylate (Amlodipine Besylate 10 Mg Tablet) 10 mg PO DAILY [facility]; Protocol Last Admin: 05/19/22 09:20 Dose: 10 mg Documented By: ARCHIE Bupropion HCl (Bupropion Hcl Xl 150 Mg Tab.Er.24h) 150 mg PO DAILY [facility] Last Admin: 05/19/22 09:20 Dose: 150 mg Documented By: ARCHIE Clonazepam (Clonazepam 0.5 Mg Tablet) 0.5 mg PO TID PRN PRN Reason: anxiety Last Admin: 05/18/22 17:03 Dose: 0.5 mg Documented By: ZULEIKAENOJANAY Dextrose (Dextrose 50 % 25 Gm/50 Ml Syringe) 25 gm IVPUSH Q15M PRN; Protocol PRN Reason: per Hypoglycemia Standing Ord. Docusate Sodium (Docusate Sodium 100 Mg Capsule) 100 mg PO DAILY PRN PRN Reason: Constipation Enoxaparin Sodium (Enoxaparin Sodium 40 Mg/0.4 Ml Syringe) 40 mg SUBCUT Q24H [facility] Last Admin: 05/18/22 20:30 Dose: 40 mg Documented By: RIC Famotidine (Famotidine 20 Mg Tablet) 20 mg PO BID [facility] Last Admin: 05/19/22 09:20 Dose: 20 mg Documented By: ARCHIE Gabapentin (Gabapentin 300 Mg Capsule) 300 mg PO BEDTIME [facility] Last Admin: 05/18/22 20:31 Dose: 300 mg Documented By: COBBOE Glucose (Glucose Gel 15 Gm Gel..Gram.) 15 gm PO Q15M PRN; Protocol PRN Reason: per Hypoglycemia Standing Ord. Insulin Glargine (Insulin Glargine,Hum.Rec.Anlog 100 Unit/Ml 10 Ml Vial) 42 un it SUBCUT DAILY [facility] Last Admin: 05/19/22 09:20 Dose: 42 unit Documented By: ARCHIE Insulin Human Lispro (Insulin Lispro 100 Unit/Ml 3 Ml Vial) 0 unit SUBCUT QIDACHS [facility]; Protocol Last Admin: 05/19/22 07:21 Dose: Not Given Documented By: ARCHIE Non-Admin Reason: No Insulin Coverage Labetalol HCl (Labetalol Hcl 200 Mg Tablet) 200 mg PO BID [facility]; Protocol Last Admin: 05/19/22 09:19 Dose: 200 mg Documented By: ARCHIE Losartan Potassium (Losartan Potassium 50 Mg Tablet) 50 mg PO DAILY [facility]; Protocol Last Admin: 05/19/22 09:20 Dose: 50 mg Documented By: ARCHIE Meclizine HCl (Meclizine Hcl 25 Mg Tablet) 25 mg PO Q6H PRN PRN Reason: Dizziness Melatonin (Melatonin 3 Mg Tablet) 3 mg PO BEDTIME PRN PRN Reason: Insomnia Metoclopramide HCl (Metoclopramide Hcl 5 Mg Tablet) 5 mg PO QID [facility] Last Admin: 05/19/22 09:20 Dose: 5 mg Documented By: ARCHIE Multivitamins/Vitamin C (Multivitamin Tablet) 1 tab PO DAILY [facility] Last Admin: 05/19/22 09:20 Dose: 1 tab Documented By: ARCHIE Ondansetron HCl (Ondansetron Hcl 4 Mg/2 Ml Vial) 4 mg IVPUSH Q8H PRN PRN Reason: Nausea and Vomiting Last Admin: 05/18/22 17:03 Dose: 4 mg Documented By: GAVIN Pharmacy Consult (Consult Rx Perform Med Rec) 1 each MISCELLANE ONCE PRN PRN Reason: Consult order Simethicone (Simethicone 80 Mg Tab.Chew) 160 mg PO TID [facility] Last Admin: 05/19/22 09:20 Dose: 160 mg Documented By: ARCHIE Sodium Chloride (0.9 % Sodium Chloride Flush 3 Ml Syringe) 3 ml IVFLUSH QSHIFT [facility] Last Admin: 05/19/22 09:19 Dose: 3 ml Documented By: ARCHIE Trazodone HCl (Trazodone Hcl 50 Mg Tablet) 150 mg PO BEDTIME PRN PRN Reason: Sleep Last Admin: 05/17/22 22:12 Dose: 150 mg Documented By: NELY Vitamin D (Cholecalciferol (Vitamin D3) 25 Mcg Tablet) 50 mcg PO DAILY [facility] Last Admin: 05/19/22 09:21 Dose: 50 mcg Documented By: ARCHIE Labs 05/19/22 05:49 05/19/22 05:49 Labs: Laboratory Results - last 24 hr 05/18/22 05/18/22 05/19/22 16:35 20:01 05:49 MCV 84.8 MCH 29.4 MCHC 34.7 RDW 12.6 Plt Count 204 MPV 10.5 Absolute Nucleated RBC 0.000 Nucleated RBC % (auto) 0.0 Anion Gap Estim Creat Clear Calc Estimated GFR POC Glucose 177 H 240 H Random Glucose Calcium Total Bilirubin Direct Bilirubin AST ALT Alkaline Phosphatase Total Protein Albumin 05/19/22 05/19/22 05/19/22 05:49 06:55 11:20 MCV MCH MCHC RDW Plt Count MPV Absolute Nucleated RBC Nucleated RBC % (auto) Anion Gap 14 Estim Creat Clear Calc 31.5 Estimated GFR 21 POC Glucose 142 H 165 H Random Glucose 135 H Calcium 8.7 Total Bilirubin 2.3 H Direct Bilirubin 1.5 H AST 71 H ALT 142 H Alkaline Phosphatase 344 H Total Protein 6.1 L Albumin 3.3 L Microbiology Microbiology Results: Microbiology 05/16/22 19:22 Blood Culture - Preliminary Blood - Venous No growth after 48 hours. 05/16/22 19:22 Blood Culture - Preliminary Blood - Venous No growth after 48 hours. Assessment and Plan (1) Elevated LFTs: Status: Acute Plan hospital d#4 56-year-old male with history of insulin-dependent type 2 diabetes, GARCIA, hypertension, depression, conversion disorder, chronic constipation, vertigo, CKD stage 3, and obesity admitted for elevated LFTs. # elevated LFTs - unclear etiology - nontender abd, negative Pathak sign - abd u/s showed cholelithiasis ,gallbladder wall thickening suggestive of possible cholecystitis, CBD normal - MRCP showed no evidence of cholecystitis, no biliary obstruction, tiny gallstone near gallbladder neck - hepatitis A and C antibody nonreactive - repeat liver enzymes trending down, alk-phos remains elevated - spoke with Dr. Weaver; question patient periodically passing sludge or gall stone causing intermittent LFT elevation/consult surgery for possible cholecystectomy - follow LFTs, serologies for ethan, autoimmune and hepatitis pending, hold statins - liver biopsy if LFTs worsening # insulin-dependent type 2 diabetes without hyperglycemia - stable blood sugars, continue basal insulin, Humalog sliding scale, home by mouth meds on hold - POC glucose - diabetic diet # diabetic polyneuropathy - continue gabapentin # diabetic gastroparesis - continue home meds # hypertension - reasonably controlled on multiple home medications losartan 50 mg, labetalol 200 b.i.d. and Norvasc 10 mg; follow BP # depression/anxiety/conversion disorder - continue home meds # mild hyponatremia - chronic; question related to kidney disease # LEDA on chronic kidney disease stage 4 - noted to have worsening creatinine ,placed on IV fluid x 1L ,consulted Nephrology they agree with treatment - renally dose medications , follow BMP # obesity - will recommend low-calorie diet # DVT prophylaxis- Lovenox Full code Patient will need continued inpatient hospitalization for monitoring of LFTs Time Spent With Patient Time: Total time managing care of this patient today __35__ minutes. Quality Stroke Does the patient have a stroke diagnosis?: No VTE Prior VTE?: No VTE Risk Level:: Medical - moderate - high VTE Device Contraindication: Treatment Not Indicated VTE Drug Contraindication: N/A - Med Ordered
[2022-05-19] MEDS: Insulin Lispro 100 UNIT/ML 3 ML VIAL SUBCUT ×3 (12:05→21:47)
[2022-05-19 14:53] LABS: Ceruloplasmin 36 mg/dL (18-36)
[2022-05-19 15:37] VITALS: BP 177/75; PULSE 80; RESP 17; TEMP 36.8; O2SAT 96
[2022-05-19 16:17] LABS: Glucose, Whole Blood 243 mg/dL (60-115)
[2022-05-19 20:00] VITALS: BP 184/81; PULSE 87; RESP 19; TEMP 36.9; O2SAT 93
[2022-05-19 20:53] LABS: Glucose, Whole Blood 294 mg/dL (60-115)
[2022-05-19] MEDS: Gabapentin 300 MG CAPSULE PO (21:44)
[2022-05-19] MEDS: Enoxaparin Sodium 40 MG/0.4 ML SYRINGE SUBCUT (21:48)
[2022-05-19] MEDS: traZODone HCL 50 MG TABLET 150 MG PO (21:52)
[2022-05-19] MEDS: clonazePAM 0.5 MG TABLET PO (21:52)
[2022-05-20] VITALS (7 sets, daily range): BP systolic 140–180; BP diastolic 72–88; PULSE 68–82; RESP 16–20; TEMP 36.5–36.9; O2SAT 92–98
--- NOTE | 2022-05-20 01:38 | PC.NURSE ---
Pt's BP at 20:00 was elevated 184/81. RADHA bedtime dose of labetalol 20mg was given. BP was retaken and went down to 180/78. MD Rainey notified of the elevated BP. No new orders were given at this time.
[2022-05-20 06:40] LABS: Hematocrit 25.4 % (42.0-52.0); Hemoglobin 8.9 g/dl (14.0-18.0); Mean Corpuscular Hemoglobin 30.1 pg (27.0-33.0); Mean Corpuscular Volume 85.8 fL (80.0-98.0); Mean Platelet Volume 10.1 fL (9.4-12.4); Platelet Count 257 X10*3/uL (160-400); Red Blood Count 2.96 X10*6/uL (4.60-5.80); Red Cell Distribution Width 12.6 % (11.0-16.0); White Blood Count 9.2 X10*3/uL (4.8-10.8)
[2022-05-20 07:04] LABS: Alanine Aminotransferase 174 U/L (0-40); Albumin Level 3.4 g/dL (3.5-5.0); Alkaline Phosphatase 425 U/L (39-117); Anion Gap 16 (12-20); Aspartate Amino Transferase 80 U/L (5-37); Bilirubin Total 2.1 mg/dL (0.0-1.0); Blood Urea Nitrogen 49 mg/dL (9-16); Carbon Dioxide 20 mmol/L (22-29); Chloride 107 mmol/L (96-108); Creatinine Clr Calc Pharmacy 33.8; Estimated Glomerular Filt Rate 22; Glucose Random 107 mg/dL (60-115); Sodium 139 mmol/L (135-145); Total Protein 6.4 g/dL (6.5-8.0)
[2022-05-20 07:43] LABS: Glucose, Whole Blood 109 mg/dL (60-115)
[2022-05-20] MEDS: amLODIPine Besylate 10 MG TABLET PO (07:44)
[2022-05-20] MEDS: Multivitamin TABLET 1 TAB PO (07:44)
[2022-05-20] MEDS: Simethicone 80 MG TAB.CHEW 160 MG PO ×3 (07:44→22:11)
[2022-05-20] MEDS: Labetalol HCL 200 MG TABLET PO ×2 (07:44→22:11)
[2022-05-20] MEDS: Losartan Potassium 50 MG TABLET PO (07:44)
[2022-05-20] MEDS: Metoclopramide HCl 5 MG TABLET PO ×4 (07:44→22:11)
[2022-05-20] MEDS: buPROPion HCl XL 150 MG TAB.ER.24H PO (07:44)
[2022-05-20] MEDS: Insulin Glargine,Hum.rec.anlog 100 UNIT/ML 10 ML VIAL 42 UNIT SUBCUT (07:45)
[2022-05-20] MEDS: Cholecalciferol (Vitamin D3) 25 MCG TABLET 50 MCG PO (07:45)
[2022-05-20] MEDS: 0.9 % Sodium Chloride Flush 3 ML SYRINGE IVFLUSH ×3 (07:45→19:37)
[2022-05-20] MEDS: Famotidine 20 MG TABLET PO ×2 (07:49→22:11)
--- NOTE | 2022-05-20 09:23 | PM.PNNEP ---
Subjective Subjective Date of Service: 05/20/22 Interval history: seen and examined denies N/V c/o SOB Physical Exam Vital Signs: Vital Signs: Last Vital Signs Temp 98.5 F 05/20/22 07:25 Pulse 80 05/20/22 07:25 Resp 18 05/20/22 07:25 BP 180/88 H 05/20/22 07:25 Pulse Ox 94 05/20/22 07:25 O2 Del Method 05/20/22 07:25 O2 Flow Rate 2 05/20/22 07:25 BMI result Body Mass Index 34.7 Const: General: no acute distress HEENT: Head: Yes normocephalic and Yes atraumatic Neck: Neck: Yes supple Resp: Auscultation: diminished lung sounds Cardio: Heart sounds: S1 normal heart sound present and S2 normal heart sound present GI: Palpation (GI): Soft to palpation and nontender Extrem: General: Yes no pedal edema Objective Data Labs 05/20/22 06:24 05/20/22 06:24 Labs: Laboratory Results - last 24 hr 05/17/22 05/19/22 05/19/22 12:14 11:20 16:12 WBC RBC Hgb Hct MCV MCH MCHC RDW Plt Count MPV Absolute Nucleated RBC Nucleated RBC % (auto) Sodium Potassium Chloride Carbon Dioxide Anion Gap BUN Creatinine Estim Creat Clear Calc Estimated GFR POC Glucose 165 H 243 H Random Glucose Calcium Total Bilirubin AST ALT Alkaline Phosphatase Total Protein Albumin Ceruloplasmin 36 05/19/22 05/20/22 05/20/22 20:48 06:24 06:24 WBC 9.2 RBC 2.96 L Hgb 8.9 L Hct 25.4 L MCV 85.8 MCH 30.1 MCHC 35.0 RDW 12.6 Plt Count 257 D MPV 10.1 Absolute Nucleated RBC 0.000 Nucleated RBC % (auto) 0.0 Sodium 139 Potassium 4.0 Chloride 107 Carbon Dioxide 20 L Anion Gap 16 BUN 49 H Creatinine 2.93 H Estim Creat Clear Calc 33.8 Estimated GFR 22 POC Glucose 294 H Random Glucose 107 Calcium 9.0 Total Bilirubin 2.1 H AST 80 H ALT 174 H Alkaline Phosphatase 425 H Total Protein 6.4 L Albumin 3.4 L Ceruloplasmin 05/20/22 07:25 WBC RBC Hgb Hct MCV MCH MCHC RDW Plt Count MPV Absolute Nucleated RBC Nucleated RBC % (auto) Sodium Potassium Chloride Carbon Dioxide Anion Gap BUN Creatinine Estim Creat Clear Calc Estimated GFR POC Glucose 109 Random Glucose Calcium Total Bilirubin AST ALT Alkaline Phosphatase Total Protein Albumin Ceruloplasmin Microbiology Microbiology Results: Microbiology 05/16/22 19:22 Blood - Venous Blood Culture - Preliminary No growth after 48 hours. 05/16/22 19:22 Blood - Venous Blood Culture - Preliminary No growth after 48 hours. Procedures Date of Service Date of Service: 05/20/22 Assessment & Plan Assessment and plan (1) LEDA (acute kidney injury): Status: Acute (2) Metabolic acidosis: Status: Acute (3) CKD (chronic kidney disease) stage 4, GFR 15-29 ml/min: Status: Acute Plan kidney function now at baseline LEDA due to compromised kidney perfusion no obstruction by CT scan of the abdomen known severe CKD due to DM/HTN baseline Scr 2.5-3 mg/dl followed by Dr Stevenson elevated BP REC discontinue amlodipine nifedipine xl 60 mg daily follow kidney function and electrolytes Time Spent With Patient Time: Total time managing care of this patient today ____ minutes. Progress Note: Quality Stroke Does the patient have a stroke diagnosis?: No
[2022-05-20] MEDS: NIFEdipine ER 30 MG TAB.ER.24 60 MG PO (09:44)
--- NOTE | 2022-05-20 11:15 | PM.PNGS ---
Subjective Subjective Date of Service: 05/20/22 Interval history: denies any abdl pain says his problem is his hypertension good GI function Physical Exam Vital Signs: Vital Signs: Last Vital Signs Temp 98.5 F 05/20/22 07:25 Pulse 80 05/20/22 07:25 Resp 18 05/20/22 07:25 BP 180/88 H 05/20/22 07:25 Pulse Ox 94 05/20/22 07:25 O2 Del Method 05/20/22 07:25 O2 Flow Rate 2 05/20/22 07:25 BMI result Body Mass Index 34.7 Const: General: comfortable and no acute distress Resp: Effort & Inspection: normal respiratory effort Cardio: Rate: regular rate GI: Palpation (GI): Soft to palpation, not firm, nontender and no guarding Objective Data Active Medications Bupropion HCl (Bupropion Hcl Xl 150 Mg Tab.Er.24h) 150 mg PO DAILY [facility] Last Admin: 05/20/22 07:44 Dose: 150 mg Documented By: ARCHIE Clonazepam (Clonazepam 0.5 Mg Tablet) 0.5 mg PO TID PRN PRN Reason: anxiety Last Admin: 05/19/22 21:52 Dose: 0.5 mg Documented By: VANDA Dextrose (Dextrose 50 % 25 Gm/50 Ml Syringe) 25 gm IVPUSH Q15M PRN; Protocol PRN Reason: per Hypoglycemia Standing Ord. Docusate Sodium (Docusate Sodium 100 Mg Capsule) 100 mg PO DAILY PRN PRN Reason: Constipation Enoxaparin Sodium (Enoxaparin Sodium 40 Mg/0.4 Ml Syringe) 40 mg SUBCUT Q24H [facility] Last Admin: 05/19/22 21:48 Dose: 40 mg Documented By: VANDA Famotidine (Famotidine 20 Mg Tablet) 20 mg PO BID [facility] Last Admin: 05/20/22 07:49 Dose: 20 mg Documented By: ARCHIE Gabapentin (Gabapentin 300 Mg Capsule) 300 mg PO BEDTIME [facility] Last Admin: 05/19/22 21:44 Dose: 300 mg Documented By: VANDA Glucose (Glucose Gel 15 Gm Gel..Gram.) 15 gm PO Q15M PRN; Protocol PRN Reason: per Hypoglycemia Standing Ord. Insulin Glargine (Insulin Glargine,Hum.Rec.Anlog 100 Unit/Ml 10 Ml Vial) 42 unit SUBCUT DAILY [facility] Last Admin: 05/20/22 07:45 Dose: 42 unit Documented By: ARCHIE Insulin Human Lispro (Insulin Lispro 100 Unit/Ml 3 Ml Vial) 0 unit SUBCUT QIDACHS [facility]; Protocol Last Admin: 05/20/22 07:34 Dose: Not Given Documented By: ARCHIE Non-Admin Reason: No Insulin Coverage Labetalol HCl (Labetalol Hcl 200 Mg Tablet) 200 mg PO BID [facility]; Protocol Last Admin: 05/20/22 07:44 Dose: 200 mg Documented By: ARCHIE Losartan Potassium (Losartan Potassium 50 Mg Tablet) 50 mg PO DAILY [facility]; Protocol Last Admin: 05/20/22 07:44 Dose: 50 mg Documented By: ARCHIE Meclizine HCl (Meclizine Hcl 25 Mg Tablet) 25 mg PO Q6H PRN PRN Reason: Dizziness Melatonin (Melatonin 3 Mg Tablet) 3 mg PO BEDTIME PRN PRN Reason: Insomnia Metoclopramide HCl (Metoclopramide Hcl 5 Mg Tablet) 5 mg PO QID [facility] Last Admin: 05/20/22 07:44 Dose: 5 mg Documented By: ARCHIE Multivitamins/Vitamin C (Multivitamin Tablet) 1 tab PO DAILY [facility] Last Admin: 05/20/22 07:44 Dose: 1 tab Documented By: ARCHIE Nifedipine (Nifedipine Er 30 Mg Tab.Er.24) 60 mg PO DAILY [facility]; Protocol Last Admin: 05/20/22 09:44 Dose: 60 mg Documented By: ARCHIE Ondansetron HCl (Ondansetron Hcl 4 Mg/2 Ml Vial) 4 mg IVPUSH Q8H PRN PRN Reason: Nausea and Vomiting Last Admin: 05/18/22 17:03 Dose: 4 mg Documented By: GAVIN Pharmacy Consult (Consult Rx Perform Med Rec) 1 each MISCELLANE ONCE PRN PRN Reason: Consult order Simethicone (Simethicone 80 Mg Tab.Chew) 160 mg PO TID [facility] Last Admin: 05/20/22 07:44 Dose: 160 mg Documented By: ARCHIE Sodium Chloride (0.9 % Sodium Chloride Flush 3 Ml Syringe) 3 ml IVFLUSH QSHIFT [facility] Last Admin: 05/20/22 07:45 Dose: 3 ml Documented By: ARCHIE Trazodone HCl (Trazodone Hcl 50 Mg Tablet) 150 mg PO BEDTIME PRN PRN Reason: Sleep Last Admin: 05/19/22 21:52 Dose: 150 mg Documented By: VANDA Vitamin D (Cholecalciferol (Vitamin D3) 25 Mcg Tablet) 50 mcg PO DAILY [facility] Last Admin: 05/20/22 07:45 Dose: 50 mcg Documented By: ARCHIE Labs 05/20/22 06:24 05/20/22 06:24 Labs: Laboratory Results - last 24 hr 05/17/22 05/19/22 05/19/22 12:14 11:20 16:12 MCV MCH MCHC RDW Plt Count MPV Absolute Nucleated RBC Nucleated RBC % (auto) Anion Gap Estim Creat Clear Calc Estimated GFR POC Glucose 165 H 243 H Random Glucose Calcium Total Bilirubin AST ALT Alkaline Phosphatase Total Protein Albumin Ceruloplasmin 36 05/19/22 05/20/22 05/20/22 20:48 06:24 06:24 MCV 85.8 MCH 30.1 MCHC 35.0 RDW 12.6 Plt Count 257 D MPV 10.1 Absolute Nucleated RBC 0.000 Nucleated RBC % (auto) 0.0 Anion Gap 16 Estim Creat Clear Calc 33.8 Estimated GFR 22 POC Glucose 294 H Random Glucose 107 Calcium 9.0 Total Bilirubin 2.1 H AST 80 H ALT 174 H Alkaline Phosphatase 425 H Total Protein 6.4 L Albumin 3.4 L Ceruloplasmin 05/20/22 07:25 MCV MCH MCHC RDW Plt Count MPV Absolute Nucleated RBC Nucleated RBC % (auto) Anion Gap Estim Creat Clear Calc Estimated GFR POC Glucose 109 Random Glucose Calcium Total Bilirubin AST ALT Alkaline Phosphatase Total Protein Albumin Ceruloplasmin Procedures Date of Service Date of Service: 05/20/22 Progress Note: A&P Assessment and plan (1) Elevated LFTs: Status: Acute Assessment and Plan: no cholecystitis LFTs have downtrended well no CBD osbtruction on MRI liver workup by GI abd soft and benign Time Spent With Patient Time: Total time managing care of this patient today ____ minutes. Quality Stroke Does the patient have a stroke diagnosis?: No VTE Prior VTE?: No VTE Risk Level:: Medical - moderate - high VTE Device Contraindication: Treatment Not Indicated VTE Drug Contraindication: N/A - Med Ordered
[2022-05-20 11:53] LABS: Glucose, Whole Blood 197 mg/dL (60-115)
[2022-05-20] MEDS: Insulin Lispro 100 UNIT/ML 3 ML VIAL SUBCUT ×3 (11:57→22:11)
--- NOTE | 2022-05-20 12:34 | HO.PM.IMPN ---
Subjective Subjective Date of Service: 05/20/22 Interval History: Noted to have elevated blood pressures, patient denies headache, no dizziness, no chest pain, no palpitations, tolerating diet with no nausea, no vomiting or abdominal pain no fevers no chills no other acute events overnight Review of Systems Review of Systems: Yes all other systems are reviewed and are negative Physical Exam Vital Signs: Vital Signs: Last Vital Signs Temp 98.5 F 05/20/22 07:25 Pulse 80 05/20/22 07:25 Resp 18 05/20/22 07:25 BP 180/88 H 05/20/22 07:25 Pulse Ox 94 05/20/22 07:25 O2 Del Method 05/20/22 07:25 O2 Flow Rate 2 05/20/22 07:25 BMI result Body Mass Index 34.7 Const: Other: Gen: no acute distress HEENT: sclera anicteric, moist mucus membranes Neck: supple Lungs: clear to auscultation bilaterally Heart: regular rate and rhythm, no murmurs Abd: soft, non-tender, non-distended,bs + Ext: no edema Skin: warm/well-perfused Neuro: alert and oriented x3, no focal findings Psych: appropriate affect ? Objective Data Active Medications Bupropion HCl (Bupropion Hcl Xl 150 Mg Tab.Er.24h) 150 mg PO DAILY [facility] Last Admin: 05/20/22 07:44 Dose: 150 mg Documented By: ARCHIE Clonazepam (Clonazepam 0.5 Mg Tablet) 0.5 mg PO TID PRN PRN Reason: anxiety Last Admin: 05/19/22 21:52 Dose: 0.5 mg Documented By: VANDA Dextrose (Dextrose 50 % 25 Gm/50 Ml Syringe) 25 gm IVPUSH Q15M PRN; Protocol PRN Reason: per Hypoglycemia Standing Ord. Docusate Sodium (Docusate Sodium 100 Mg Capsule) 100 mg PO DAILY PRN PRN Reason: Constipation Enoxaparin Sodium (Enoxaparin Sodium 40 Mg/0.4 Ml Syringe) 40 mg SUBCUT Q24H [facility] Last Admin: 05/19/22 21:48 Dose: 40 mg Documented By: VANDA Famotidine (Famotidine 20 Mg Tablet) 20 mg PO BID [facility] Last Admin: 05/20/22 07:49 Dose: 20 mg Documented By: ARCHIE Gabapentin (Gabapentin 300 Mg Capsule) 300 mg PO BEDTIME [facility] Last Admin: 05/19/22 21:44 Dose: 300 mg Documented By: VANDA Glucose (Glucose Gel 15 Gm Gel..Gram.) 15 gm PO Q15M PRN; Protocol PRN Reason: per Hypoglycemia Standing Ord. Insulin Glargine (Insulin Glargine,Hum.Rec.Anlog 100 Unit/Ml 10 Ml Vial) 42 unit SUBCUT DAILY [facility] Last Admin: 05/20/22 07:45 Dose: 42 unit Documented By: ARCHIE Insulin Human Lispro (Insulin Lispro 100 Unit/Ml 3 Ml Vial) 0 unit SUBCUT QIDACHS [facility]; Protocol Last Admin: 05/20/22 11:57 Dose: 2 unit Documented By: ARCHIE Labetalol HCl (Labetalol Hcl 200 Mg Tablet) 200 mg PO BID [facility]; Protocol Last Admin: 05/20/22 07:44 Dose: 200 mg Documented By: ARCHIE Losartan Potassium (Losartan Potassium 50 Mg Tablet) 50 mg PO DAILY [facility]; Protocol Last Admin: 05/20/22 07:44 Dose: 50 mg Documented By: ARCHIE Meclizine HCl (Meclizine Hcl 25 Mg Tablet) 25 mg PO Q6H PRN PRN Reason: Dizziness Melatonin (Melatonin 3 Mg Tablet) 3 mg PO BEDTIME PRN PRN Reason: Insomnia Metoclopramide HCl (Metoclopramide Hcl 5 Mg Tablet) 5 mg PO QID [facility] Last Admin: 05/20/22 11:57 Dose: 5 mg Documented By: ARCHIE Multivitamins/Vitamin C (Multivitamin Tablet) 1 tab PO DAILY [facility] Last Admin: 05/20/22 07:44 Dose: 1 tab Documented By: ARCHIE Nifedipine (Nifedipine Er 30 Mg Tab.Er.24) 60 mg PO DAILY [facility]; Protocol Last Admin: 05/20/22 09:44 Dose: 60 mg Documented By: ARCHIE Ondansetron HCl (Ondansetron Hcl 4 Mg/2 Ml Vial) 4 mg IVPUSH Q8H PRN PRN Reason: Nausea and Vomiting Last Admin: 05/18/22 17:03 Dose: 4 mg Documented By: GAVIN Pharmacy Consult (Consult Rx Perform Med Rec) 1 each MISCELLANE ONCE PRN PRN Reason: Consult order Simethicone (Simethicone 80 Mg Tab.Chew) 160 mg PO TID [facility] Last Admin: 05/20/22 07:44 Dose: 160 mg Documented By: ARCHIE Sodium Chloride (0.9 % Sodium Chloride Flush 3 Ml Syringe) 3 ml IVFLUSH QSHIFT [facility] Last Admin: 05/20/22 07:45 Dose: 3 ml Documented By: ARCHIE Trazodone HCl (Trazodone Hcl 50 Mg Tablet) 150 mg PO BEDTIME PRN PRN Reason: Sleep Last Admin: 05/19/22 21:52 Dose: 150 mg Documented By: VANDA Vitamin D (Cholecalciferol (Vitamin D3) 25 Mcg Tablet) 50 mcg PO DAILY [facility] Last Admin: 05/20/22 07:45 Dose: 50 mcg Documented By: ARCHIE Labs 05/20/22 06:24 05/20/22 06:24 Labs: Laboratory Results - last 24 hr 05/17/22 05/19/22 05/19/22 12:14 16:12 20:48 MCV MCH MCHC RDW Plt Count MPV Absolute Nucleated RBC Nucleated RBC % (auto) Anion Gap Estim Creat Clear Calc Estimated GFR POC Glucose 243 H 294 H Random Glucose Calcium Total Bilirubin AST ALT Alkaline Phosphatase Total Protein Albumin Ceruloplasmin 36 05/20/22 05/20/22 05/20/22 06:24 06:24 07:25 MCV 85.8 MCH 30.1 MCHC 35.0 RDW 12.6 Plt Count 257 D MPV 10.1 Absolute Nucleated RBC 0.000 Nucleated RBC % (auto) 0.0 Anion Gap 16 Estim Creat Clear Calc 33.8 Estimated GFR 22 POC Glucose 109 Random Glucose 107 Calcium 9.0 Total Bilirubin 2.1 H AST 80 H ALT 174 H Alkaline Phosphatase 425 H Total Protein 6.4 L Albumin 3.4 L Ceruloplasmin 05/20/22 11:38 MCV MCH MCHC RDW Plt Count MPV Absolute Nucleated RBC Nucleated RBC % (auto) Anion Gap Estim Creat Clear Calc Estimated GFR POC Glucose 197 H Random Glucose Calcium Total Bilirubin AST ALT Alkaline Phosphatase Total Protein Albumin Ceruloplasmin Assessment and Plan (1) Elevated LFTs: Status: Acute [facility] d#4 56-year-old male with history of insulin-dependent type 2 diabetes, GARCIA, hypertension, depression, conversion disorder, chronic constipation, vertigo, CKD stage 3, and obesity admitted for elevated LFTs. # elevated LFTs - unclear etiology - nontender abd, negative Pathak sign - abd u/s showed cholelithiasis ,gallbladder wall thickening suggestive of possible cholecystitis, CBD normal - MRCP showed no evidence of cholecystitis, no biliary obstruction, tiny gallstone near gallbladder neck - hepatitis A and C antibody nonreactive - repeat liver enzymes trending down, alk-phos remains elevated - spoke with Dr. Weaver; question patient periodically passing sludge or gall stone causing intermittent LFT elevation/seen by surgery no cholecystitis they recommend liver workup as per GI - serologies for ethan, autoimmune and hepatitis pending, hold statins - follow LFTs and discuss treatment plan with GI, liver biopsy if LFTs worsening. # insulin-dependent type 2 diabetes without hyperglycemia - stable blood sugars, continue basal insulin, Humalog sliding scale, by mouth meds on hold - POC glucose - diabetic diet # diabetic polyneuropathy - continue gabapentin # diabetic gastroparesis - continue home meds # hypertension - elevated blood pressures on losartan 50 mg, labetalol 200 b.i.d. and Norvasc 10 mg; will give 1 dose of hydralazine and discuss blood pressure management with Nephrology, at home pt. was on Lasix 20 mg and was also treated briefly with hydrochlorothiazide. # depression/anxiety/conversion disorder - continue home meds # mild hyponatremia - chronic; question related to kidney disease # LEDA on chronic kidney disease stage 4 - creatinine back to normal range,s/p ivf, being followed by Nephrology - renally dose medications , follow BMP # obesity - low-calorie diet # DVT prophylaxis- Lovenox Full code Patient will need continued inpatient hospitalization for monitoring of LFTs Time Spent With Patient Time: Total time managing care of this patient today ____ minutes. Quality Stroke Does the patient have a stroke diagnosis?: No VTE Prior VTE?: No VTE Risk Level:: Medical - moderate - high VTE Device Contraindication: Treatment Not Indicated VTE Drug Contraindication: N/A - Med Ordered
[2022-05-20] MEDS: hydrALAZINE HCl 25 MG TABLET PO (13:01)
[2022-05-20 14:23] LABS: Glucose, Whole Blood 249 mg/dL (60-115)
[2022-05-20 16:46] LABS: Glucose, Whole Blood 185 mg/dL (60-115)
[2022-05-20] MEDS: Butalb/Acetamin/Caff 50/325/40 TABLET 1 TAB PO (18:23)
[2022-05-20] MEDS: ondansetron HCL 4 MG/2 ML VIAL IVPUSH (19:36)
[2022-05-20] MEDS: Enoxaparin Sodium 40 MG/0.4 ML SYRINGE SUBCUT (19:36)
[2022-05-20] MEDS: traZODone HCL 50 MG TABLET 150 MG PO (22:10)
[2022-05-20] MEDS: clonazePAM 0.5 MG TABLET PO (22:11)
[2022-05-20] MEDS: Gabapentin 300 MG CAPSULE PO (22:11)
[2022-05-21 03:57] VITALS: BP 168/70; PULSE 76; RESP 18; TEMP 36.9; O2SAT 95
[2022-05-21 07:01] LABS: Alanine Aminotransferase 162 U/L (0-40); Albumin Level 3.4 g/dL (3.5-5.0); Alkaline Phosphatase 432 U/L (39-117); Anion Gap 16 (12-20); Aspartate Amino Transferase 59 U/L (5-37); Bilirubin Direct 0.9 mg/dL (0.0-0.5); Bilirubin Total 1.7 mg/dL (0.0-1.0); Blood Urea Nitrogen 58 mg/dL (9-16); Calcium 8.9 mg/dL (8.4-10.2); Carbon Dioxide 20 mmol/L (22-29); Chloride 103 mmol/L (96-108); Creatinine Clr Calc Pharmacy 31.3; Estimated Glomerular Filt Rate 20; Glucose Random 162 mg/dL (60-115); Potassium 4.3 mmol/L (3.3-5.1); Sodium 135 mmol/L (135-145); Total Protein 6.4 g/dL (6.5-8.0)
[2022-05-21 07:19] LABS: Glucose, Whole Blood 148 mg/dL (60-115)
[2022-05-21 07:26] VITALS: BP 160/70; PULSE 79; RESP 19; TEMP 36.8; O2SAT 97
[2022-05-21 07:53] LABS: EBV DNA PCR Not Detected (Not Detected); EBV Source Whole Blood
[2022-05-21] MEDS: Insulin Glargine,Hum.rec.anlog 100 UNIT/ML 10 ML VIAL 42 UNIT SUBCUT (08:00)
[2022-05-21] MEDS: Labetalol HCL 200 MG TABLET PO (08:01)
[2022-05-21] MEDS: Losartan Potassium 50 MG TABLET PO (08:01)
[2022-05-21] MEDS: Cholecalciferol (Vitamin D3) 25 MCG TABLET 50 MCG PO (08:01)
[2022-05-21] MEDS: buPROPion HCl XL 150 MG TAB.ER.24H PO (08:01)
[2022-05-21] MEDS: Multivitamin TABLET 1 TAB PO (08:01)
[2022-05-21] MEDS: Famotidine 20 MG TABLET PO (08:01)
[2022-05-21] MEDS: Metoclopramide HCl 5 MG TABLET PO ×2 (08:01→12:10)
[2022-05-21] MEDS: NIFEdipine ER 30 MG TAB.ER.24 60 MG PO (08:01)
[2022-05-21] MEDS: 0.9 % Sodium Chloride Flush 3 ML SYRINGE IVFLUSH (08:02)
[2022-05-21 08:38] LABS: Glucose, Whole Blood 303 mg/dL (60-115)
--- NOTE | 2022-05-21 09:25 | PM.PNNEP ---
Subjective Subjective Date of Service: 05/21/22 Interval history: Noted to have elevated blood pressures, patient denies headache, no dizziness, no chest pain, no palpitations, tolerating diet with no nausea, no vomiting or abdominal pain no fevers no chills no other acute events overnight Physical Exam Vital Signs: Vital Signs: Last Vital Signs Temp 98.2 F 05/21/22 07:26 Pulse 79 05/21/22 07:26 Resp 19 05/21/22 07:26 BP 160/70 H 05/21/22 07:26 Pulse Ox 97 05/21/22 07:26 O2 Del Method 05/21/22 07:26 O2 Flow Rate 1 05/21/22 07:26 BMI result Body Mass Index 34.7 Const: General: no acute distress HEENT: Head: Yes normocephalic and Yes atraumatic Neck: Neck: Yes supple Resp: Auscultation: diminished lung sounds Cardio: Heart sounds: S1 normal heart sound present and S2 normal heart sound present GI: Palpation (GI): Soft to palpation and nontender Extrem: General: Yes no pedal edema Objective Data Labs 05/20/22 06:24 05/21/22 05:31 Labs: Laboratory Results - last 24 hr 05/17/22 05/20/22 05/20/22 12:14 11:38 14:13 Sodium Potassium Chloride Carbon Dioxide Anion Gap BUN Creatinine Estim Creat Clear Calc Estimated GFR POC Glucose 197 H 249 H Random Glucose Calcium Total Bilirubin Direct Bilirubin AST ALT Alkaline Phosphatase Total Protein Albumin EBV Source Whole Blood EBV DNA (PCR) Not Detected 05/20/22 05/20/22 05/21/22 16:42 20:14 05:31 Sodium 135 Potassium 4.3 Chloride 103 Carbon Dioxide 20 L Anion Gap 16 BUN 58 H Creatinine 3.16 H Estim Creat Clear Calc 31.3 Estimated GFR 20 POC Glucose 185 H 303 H Random Glucose 162 H Calcium 8.9 Total Bilirubin 1.7 H Direct Bilirubin 0.9 H AST 59 H ALT 162 H Alkaline Phosphatase 432 H Total Protein 6.4 L Albumin 3.4 L EBV Source EBV DNA (PCR) 05/21/22 07:15 Sodium Potassium Chloride Carbon Dioxide Anion Gap BUN Creatinine Estim Creat Clear Calc Estimated GFR POC Glucose 148 H Random Glucose Calcium Total Bilirubin Direct Bilirubin AST ALT Alkaline Phosphatase Total Protein Albumin EBV Source EBV DNA (PCR) Microbiology Microbiology Results: Microbiology 05/16/22 19:22 Blood - Venous Blood Culture - Preliminary No growth after 48 hours. 05/16/22 19:22 Blood - Venous Blood Culture - Preliminary No growth after 48 hours. Procedures Date of Service Date of Service: 05/21/22 Assessment & Plan Assessment and plan (1) Metabolic acidosis: Status: Acute (2) CKD (chronic kidney disease) stage 4, GFR 15-29 ml/min: Status: Acute Plan kidney function now at baseline LEDA due to compromised kidney perfusion no obstruction by CT scan of the abdomen known severe CKD due to DM/HTN baseline Scr 2.5-3 mg/dl elevated BP REC nifedipine xl 60 mg daily Will arrange for OP follow up Time Spent With Patient Time: Total time managing care of this patient today ____ minutes. Progress Note: Quality Stroke Does the patient have a stroke diagnosis?: No
[2022-05-21] MEDS: Simethicone 80 MG TAB.CHEW 160 MG PO (09:34)
--- NOTE | 2022-05-21 10:24 | PM.DS ---
DS: Providers Provider Date of Service: 05/21/22 Date of admission: 05/16/22 19:27 Primary care physician: Sarthak Spencer MD Consults: 05/16/22 19:32 Consult to Gastroenterology Routine Consulting Provider: Jarred Abel Reason for consultation: abnormal LFTs 05/18/22 07:32 Consult to General Surgery Routine Consulting Provider: Anand Dias Reason for consultation: intermittent obstructive jaundice ? related to gall stones Has provider been notified: No 05/18/22 07:35 Consult to Nephrology Routine Consulting Provider: Carson Esquivel Reason for consultation: leda on ckd Has provider been notified: No DS: Diagnosis Discharge Diagnosis (1) Metabolic acidosis: Status: Acute (2) CKD (chronic kidney disease) stage 4, GFR 15-29 ml/min: Status: Acute DS: Summary Hospital Course Hospital Course: Date of Service: 05/16/22 Attending physician on admission: Jean Pierre Rainey Chief Complaint: gait imbalance 56-year-old male with history of insulin-dependent type 2 diabetes, Yang, hypertension, depression, conversion disorder, chronic constipation, vertigo, CKD stage 3, and obesity presented to the ED for evaluation of epigastric discomfort, vertigo that has been ongoing for 4 days but most noticeable this morning and he was advised to present to the ED by his [facility] nurse.? He also states that he is had insomnia for the last 4 days.? Denies any fevers, chills, nausea, vomiting, diarrhea, melena, hematochezia, chest pain.? Denies any urinary symptoms.? On arrival, vital signs stable.? No leukocytosis.? Normocytic anemia with H/H of 9.1/26.0 (, last recorded at 12.2/35.9% in 05/2021).? Renal function baseline with creatinine 3.13, BUN 48.? Sodium 129, potassium 4.0, chloride 97, CO2 19, glucose 165.? LFTs elevated with total bilirubin 4.2, direct bilirubin 2.7, AST 74, ALT 191, alkaline phosphatase 226 .? Patient did have similar lab findings and 06/2021 in 07/2020 with admission in 07/2020 though hyperbilirubinemia more significant at 10.5.? At that time, he was seen by GI recommending discontinuation of Lipitor and did have MRCP which did not reveal any biliary obstruction and LFTs did trend down.? He has had negative hepatitis serologies in the past for both hepatitis-B and C.? Repeat hepatitis-B and C antibody testing is pending.? Acetaminophen level is negative today.? CT abdomen/pelvis is without any acute intra-abdominal abnormality.? U/S of the right upper quadrant showed cholelithiasis with gallbladder wall thickening and trace amount of pericholecystic free fluid possibly suggestive of acute cholecystitis and increased echogenicity of the liver as well as small right pleurel effusion. CXR unremarkable. Follow up discussion with gen surg who did not feel LFT elevation was related to gallbladder. ED discussed case with GI who is recommending MRCP, and observation to follow LFTs.? Patient also treated with 1 L IV NS. Denies etoh use, illicit drug use, or smoking. Doees use about 2g tylenol daily for knee pain. Hospital course 56-year-old male with history of insulin-dependent type 2 diabetes, YANG, hypertension, depression, conversion disorder, chronic constipation, vertigo, CKD stage 3, and obesity admitted for elevated LFTs. # patient admitted with elevated LFTs,of unclear etiology, abd u/s showed cholelithiasis ,gallbladder wall thickening suggestive of possible cholecystitis, CBD normal, MRCP showed no evidence of cholecystitis, no biliary obstruction, tiny gallstone near gallbladder neck, hepatitis A and C antibody nonreactive patient was kept NPO, diet was gradually advanced that he is tolerating without abdominal pain, no nausea, no vomiting, repeat liver enzymes trending down, alk-phos remains elevated, patient seen by traditional [facility] health practitioner Dr. Weaver he questioned whether elevated LFTs related to passing sludge or gall stone causing intermittent LFT elevation Patient subsequently evaluated by General surgery, therefore patient does not have acute cholecystitis, since patient is hemodynamically stable and LFTs improving he is being discharged home. ? serologies for ethan, autoimmune hepatitis pending, recommend to avoid hepatotoxins including statins and Tylenol # insulin-dependent type 2 diabetes without hyperglycemia blood sugars stable recommend to resume home medications and diabetic diet # diabetic polyneuropathy- continue gabapentin # diabetic gastroparesis - continue home meds # hypertension noted to have elevated blood pressures, therefore Norvasc discontinued and placed on Procardia XL 60 mg, will continue all other home medications including losartan 50 mg, labetalol 100 mg b.i.d., recommend to hold Lasix and outpatient follow-up with PCP and Dr. Stevenson from Nephrology. # depression/anxiety/conversion disorder continue home meds # mild hyponatremia- chronic intermittent likely due to Lasix # LEDA on chronic kidney disease stage 4, patient treated with IV fluids renal function returned to baseline recommend to hold Lasix and outpatient follow-up with Nephrology # obesity-? low-calorie diet Time Spent with Patient Time attestation: Total time managing care of this patient today ____ minutes. Discharge coordination time: Greater than 30 minutes Quality: Safe Use of Opioids Does Pt have an Active Cancer Diagnosis on the Problem List?: No Quality: Stroke Does the patient have a stroke diagnosis?: No Physical Exam Vital Signs: Vital Signs: Last Vital Signs Temp 98.2 F 05/21/22 07:26 Pulse 79 05/21/22 07:26 Resp 19 05/21/22 07:26 BP 160/70 H 05/21/22 07:26 Pulse Ox 97 05/21/22 07:26 O2 Del Method 05/21/22 07:26 O2 Flow Rate 1 05/21/22 07:26 BMI result Body Mass Index 34.7 Const: Other: Gen:? no acute distress HEENT: sclera anicteric, moist mucus membranes Neck: supple Lungs: clear to auscultation bilaterally Heart: regular rate and rhythm, no murmurs Abd: soft, non-tender,obese,bs + Ext: no edema Skin: warm/well-perfused Neuro: alert and oriented x3, no focal findings Psych: appropriate affect DS: Data Data Completed and Pending Labs on day of discharge: Laboratory Results - last 24 hr 05/17/22 05/20/22 05/20/22 12:14 11:38 14:13 Sodium Potassium Chloride Carbon Dioxide Anion Gap BUN Creatinine Estim Creat Clear Calc Estimated GFR POC Glucose 197 H 249 H Random Glucose Calcium Total Bilirubin Direct Bilirubin AST ALT Alkaline Phosphatase Total Protein Albumin EBV Source Whole Blood EBV DNA (PCR) Not Detected 05/20/22 05/20/22 05/21/22 16:42 20:14 05:31 Sodium 135 Potassium 4.3 Chloride 103 Carbon Dioxide 20 L Anion Gap 16 BUN 58 H Creatinine 3.16 H Estim Creat Clear Calc 31.3 Estimated GFR 20 POC Glucose 185 H 303 H Random Glucose 162 H Calcium 8.9 Total Bilirubin 1.7 H Direct Bilirubin 0.9 H AST 59 H ALT 162 H Alkaline Phosphatase 432 H Total Protein 6.4 L Albumin 3.4 L EBV Source EBV DNA (PCR) 05/21/22 07:15 Sodium Potassium Chloride Carbon Dioxide Anion Gap BUN Creatinine Estim Creat Clear Calc Estimated GFR POC Glucose 148 H Random Glucose Calcium Total Bilirubin Direct Bilirubin AST ALT Alkaline Phosphatase Total Protein Albumin EBV Source EBV DNA (PCR) Preliminary micro results at discharge 05/16/22 19:22 Blood Culture - Preliminary Blood - Venous No growth after 48 hours. 05/16/22 19:22 Blood Culture - Preliminary Blood - Venous No growth after 48 hours. Discharge Plan Discharge Anticipated Discharge Date/Time: 05/21/22 10:23 Patient Disposition: Home, Self-Care Discharge Diagnosis: LFT elevation Referrals: Sarthak Spencer MD [Primary Care Provider] - 1 Week Discharge Medications: New nifedipine 30 mg Tablet Extended Release 24hr 60 mg PO DAILY Qty: 30 0RF Protocol: Hold for SBP< HOLD for SBP < : 90 Continued clonazepam 0.5 mg tablet 0.5 mg PO TID PRN (Reason: anxiety) Qty: 90 5RF (DME) lancets [FreeStyle Lancets] 28 gauge misc See Rx Instructions .MEDSUPPLY Qty: 150 5RF Rx Instructions: 4 times a day gabapentin 300 mg capsule 300 mg PO BID Qty: 60 8RF cholecalciferol (vitamin D3) [D3-2000] 50 mcg (2,000 unit) capsule 50 mcg PO DAILY Qty: 30 11RF omega-3 acid ethyl esters 1 gram capsule 2 cap PO BID 30 Days Qty: 120 11RF (DME) FreeStyle John 14 Day Sensor Kit See Rx Instructions .Route Qty: 1 0RF Rx Instructions: As directed (DME) blood pressure monitor [Blood Pressure Kit] Kit See Rx Instructions .Route Qty: 1 0RF Rx Instructions: As directed losartan 50 mg tablet 50 mg PO DAILY Qty: 90 8RF Tradjenta 5 mg tablet 5 mg PO DAILY 30 Days Qty: 30 6RF venlafaxine 150 mg capsule,extended release 24hr 150 mg PO DAILY meclizine 25 mg tablet 25 mg PO Q6H PRN (Reason: Dizziness) trazodone 150 mg tablet 150 mg PO BEDTIME PRN (Reason: Sleep) insulin aspart U-100 [Novolog FlexPen U-100 Insulin] 100 unit/mL (3 mL) insulin pen 14 unit subcut TIDAC bupropion HCl 150 mg tablet extended release 24 hr 150 mg PO DAILY Toujeo Max U-300 SoloStar 300 unit/mL (3 mL) insulin pen 70 unit subcut DAILY Rx Instructions: in the morning (DME) Blood Pressure Cuff Misc See Rx Instructions .Route Qty: 1 0RF Rx Instructions: As directed multivitamin with folic acid [Tab-A-George] 400 mcg tablet 1 tab PO DAILY (DME) pen needle, diabetic [Ultracare Pen Needle] 32 gauge x 3/16 needle See Rx Instructions .ROUTE .MEDSUPPLY Qty: 50 Rx Instructions: As directed famotidine 20 mg tablet 20 mg PO BID Qty: 180 8RF metoclopramide HCl 5 mg tablet 5 mg PO QID Qty: 360 2RF simethicone 180 mg capsule 180 mg PO TID Qty: 90 1RF labetalol 200 mg tablet 200 mg PO BID Qty: 60 3RF (DME) pen needle, diabetic [BD Kacey 2nd Gen Pen Needle] 32 gauge x 5/32 needle See Rx Instructions .MEDSUPPLY Qty: 400 6RF Rx Instructions: 5 times a day Discontinued furosemide [Lasix] 20 mg tablet 20 mg PO BIDWM amlodipine 10 mg tablet 10 mg PO DAILY Qty: 30 2RF Discharge Orders: Discharge Order (Routine); Ordered 05/21/22 Ordered By: Med Mcneal Diet: Diabetic diet Activity on Discharge: As tolerated Stand Alone Forms: Patient Portal Discharge page Care Plan Goals: Stop Lasix and Norvasc 10 mg Start taking Procardia XL 60 mg by mouth daily Return to check with abdominal pain, nausea or vomiting Health Concerns: Avoid [id number] Tylenol, no alcohol take all home medications as prescribed Follow diabetic diet. Plan of Treatment: Follow-up with nephrology call for appointment Follow-up with gastroenterology doctor Yashira/Lindsey Saleh call for appointment in 1 week to obtain blood work report Assessment: as above Discharge Date/Time: 05/21/22 13:16
[2022-05-21 12:05] LABS: Glucose, Whole Blood 225 mg/dL (60-115)
[2022-05-21] MEDS: Insulin Lispro 100 UNIT/ML 3 ML VIAL SUBCUT (12:10)
--- NOTE | 2022-05-21 13:07 | MHC.CM.PN ---
PT DISCHARGED HOME TODAY WITH [facility]UMPTION OF [facility] FOR MED MANAGEMENT DC SUMMARY FAXED TO [facility] PER THEIR REQUEST ([phone]) FAM[facility] WILL TRANSPORT
[2022-05-21 15:08] LABS: CMV DNA PCR Qn Source NOT GIVEN; CMV DNA Qn PCR NOT DETECTED Log IU/mL (NOT DETECTED); CMV DNA Qn Real Time PCR NOT DETECTED (NOT DETECTED)
[2022-05-21 15:53] LABS: Anti Nuclear Antibody Screen NEGATIVE (NEGATIVE)
[2022-05-21 23:04] LABS: Myeloperoxidase Antibody <1.0 AI; Proteinase 3 PR3 Antibodies <1.0 AI
[2022-05-22 22:28] LABS: Smooth Muscle Antibody <20 U (<20)
[2022-05-23 12:39] LABS: HSV 1 IgM IFA Negative (Negative); HSV 2 IgM IFA Negative (Negative)
[2022-05-23 13:18] LABS: Mitochondrial Antibodies NEGATIVE (NEGATIVE)
[2022-05-30 14:18] LABS: A1A Clinical Indication NG; A1A Referring Physician NG
== END 2022-05-21 13:16 | disposition home or self-care (01) ==
LOC: HO.ED 19:23 → HO.EDOVER 19:40 → HO.S3 05-17 17:05
PROVIDERS: Family Medicine; Internal Medicine; Internal Medicine Gastroenterology; Admitting Provider Physician Assistant; Emergency Provider Student in an Organized Health Care Education/Training Program; PCP Internal Medicine; Visit Provider Hospitalist
DX: E87.21 Acute metabolic acidosis (principal); E11.22 Type 2 diabetes mellitus with diabetic chronic kidney disease; I12.9 Hypertensive chronic kidney disease with stage 1 through stage 4 chronic kidney disease, or unspecified chronic kidney disease; N18.4 Chronic kidney disease, stage 4 (severe); N17.9 Acute kidney failure, unspecified; E11.65 Type 2 diabetes mellitus with hyperglycemia; F32.9 Major depressive disorder, single episode, unspecified; E11.42 Type 2 diabetes mellitus with diabetic polyneuropathy; E11.43 Type 2 diabetes mellitus with diabetic autonomic (poly)neuropathy; J90 Pleural effusion, not elsewhere classified; E66.01 Morbid (severe) obesity due to excess calories; K31.84 Gastroparesis; E87.1 Hypo-osmolality and hyponatremia; K75.81 Nonalcoholic steatohepatitis (NASH); Z79.4 Long term (current) use of insulin; Z68.30 Body mass index [BMI] 30.0-30.9, adult; R42 Dizziness and giddiness; Z20.822 Contact with and (suspected) exposure to COVID-19
CPT/HCPCS: 0241U; 36415; 71045; 74176; 74181; 76705; 80048; 80053; 80076; 80143; 81001; 81003; 82009; 82104; 82248; 82272; 82390; 82947; 83605; 83690; 84484; 85025; 85027; 85610; 86015; 86021; 86038; 86039; 86255; 86256; 86695; 86696; 86709; 86803; 87040; 87497; 87798; 93005; 96361; 96372; 96374; 96376; 99221; 99285; J1650; J2405

== ENCOUNTER 2022-05-23 15:00 | Inpatient (IN) | payer OTHER, SELFPAY ==
--- NOTE | ~2022-05-23 | XR_ITS ---
EXAMINATION: XR CHEST CLINICAL INFORMATION: Shortness of breath COMPARISON: 05/16/2022 TECHNIQUE: Frontal view of the chest was obtained. FINDINGS: The lungs are well expanded. Diffuse interstitial prominence with Janis B-lines. No pleural effusion or pneumothorax. No dense consolidation. The cardiomediastinal silhouette is within normal limits. XR/XR chest 1V IMPRESSION: Diffuse interstitial prominence with Janis B-lines suggestive of interstitial edema.
[2022-05-23 15:13] VITALS: BP 122/78; PULSE 70; O2SAT 98
--- NOTE | 2022-05-23 15:15 | ED_ITS ---
HPI - SOB/Dyspnea General Chief Complaint: General Medical <CATHERINE Caraballo - Last Filed: 05/23/22 16:15> Stated Complaint: SOB, from home per EMS <CATHERINE Caraballo - Last Filed: 05/23/22 16:15> Time Seen by Provider: 05/23/22 20:07 <CATHERINE Caraballo - Last Filed: 05/23/22 16:15> Source: patient <Susi Lew MD - Last Filed: 05/23/22 22:31> Mode of arrival: EMS <Susi Lew MD - Last Filed: 05/23/22 22:31> History of Present Illness HPI Narrative: 56-year-old male who was discharged on 05/21 and called EMS because he developed shortness of breath while sitting. Patient denies that a got any better. He denies any recent fevers or chills and denies any use diuretics. In addition, he denies any chest pain/palpitations. <Susi Lew MD - Last Filed: 05/23/22 22:31> Related Data Home Medications: Home Medications Medication Instructions Recorded Confirmed venlafaxine 150 mg 150 mg PO DAILY 10/30/21 05/16/22 capsule,extended release 24 hr multivitamin with folic acid 400 1 tab PO DAILY 03/06/22 05/16/22 mcg tablet (Tab-A-George) pen needle, diabetic 32 gauge x #50 ea 03/06/22 04/16/22/16 (Ultracare Pen Needle) bupropion HCl 150 mg 24 hr tablet, 150 mg PO DAILY 05/16/22 05/16/22 extended release insulin aspart U-100 100 unit/mL 14 unit subcut TIDAC 05/16/22 05/16/22 (3 mL) subcutaneous pen (Novolog FlexPen U-100 Insulin aspart) insulin glargine U-300 conc 300 70 unit subcut DAILY 05/16/22 05/16/22 unit/mL (3 mL) subcutaneous pen (Toujeo Max U-300 SoloStar) meclizine 25 mg tablet 25 mg PO Q6H PRN Dizziness 05/16/22 05/16/22 trazodone 150 mg tablet 150 mg PO BEDTIME PRN Sleep 05/16/22 05/16/22 Previous Rx's Medication Instructions Recorded clonazepam 0.5 mg tablet 0.5 mg PO TID PRN anxiety #90 tabs 01/31/21 lancets 28 gauge (FreeStyle #150 ea 05/12/21 Lancets) miscellaneous medical supply #1 ea 05/25/21 (Blood Pressure Cuff) pen needle, diabetic 32 gauge x #400 ea 08/11/2132 (BD Kacey 2nd Gen Pen Needle) gabapentin 300 mg capsule 300 mg PO BID #60 caps 08/25/21 cholecalciferol (vitamin D3) 50 50 mcg PO DAILY #30 caps 08/30/21 mcg (2,000 unit) capsule (D3-1999) omega-3 acid ethyl esters 1 gram 2 cap PO BID 30 days #120 caps 09/04/21 capsule flash glucose sensor (FreeStyle #1 ea 04/10/22 John 14 Day Sensor kit) labetalol 200 mg tablet 200 mg PO BID #60 tabs 04/16/22 blood pressure monitor (Blood #1 ea 04/24/22 Pressure Kit) losartan 50 mg tablet 50 mg PO DAILY #90 tabs 04/25/22 famotidine 20 mg tablet 20 mg PO BID #180 tabs 05/01/22 metoclopramide HCl 5 mg tablet 5 mg PO QID #360 tabs 05/01/22 simethicone 180 mg capsule 180 mg PO TID #90 caps 05/01/22 linagliptin 5 mg tablet (Tradjenta) 5 mg PO DAILY 30 days #30 tabs 05/16/22 nifedipine 30 mg tablet,extended 60 mg PO DAILY #30 tabs 05/21/22 release 24 hr <CATHERINE Caraballo - Last Filed: 05/23/22 16:15> Allergies/Adverse Reactions: Allergies Allergy/AdvReac Type Severity Reaction Status Date / Time cephalexin [From KEFLEX] Allergy Mild ITCHY Verified 05/23/22 16:16 THROAT lisinopril [LISINOPRIL] Allergy Unknown SWELLING Verified 05/23/22 16:16 COUGH <CATHERINE Caraballo - Last Filed: 05/23/22 16:15> Review of Systems Review of Systems: Pertinent positives and negatives as stated in HPI <Susi Lew MD - Last Filed: 05/23/22 22:31> PMFSH Past Medical History Source: nursing notes reviewed <Susi Lew MD - Last Filed: 05/23/22 22:31> Medical History: Medical History Anxiety Chronic hyperglycemia CKD (chronic kidney disease) stage 3, GFR 30-59 ml/min Depression Diabetes Diabetes type 2, uncontrolled Diabetic nephropathy associated with type 2 diabetes mellitus Diabetic neuropathy associated with type 2 diabetes mellitus Dyslipidemia Essential hypertension GERD (gastroesophageal reflux disease) High cholesterol Hypercalcemia Hyperlipidemia 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 <CATHERINE Caraballo - Last Filed: 05/23/22 16:15> Social History Social History: Social History Household Members: Family Household Members Other:: SISTER Housing: Apartment Do you presently have visiting nurse or other home services: Yes Alcohol intake: never Patient Tobacco Use Status: Never used Tobacco e-Cigarette/Vaping Use: Never Used Second Hand Smoke Exposure: Yes (HISTORY OF SECOND HAND SMOKE EXPOSURE) Advance Directives: Yes Advance Directives on File: Yes Advance Directives Date on File: 05/05/20 service: No Current occupational status: disabled Current occupation: right handed Cognitive needs: No Hearing needs: No Vision needs: No <CATHERINE Caraballo - Last Filed: 05/23/22 16:15> Physical Exam Vital Signs: Vital Signs: Last Vital Signs Temp 97.7 F 05/23/22 16:09 Pulse 76 05/23/22 16:09 Resp 16 05/23/22 16:09 BP 134/65 05/23/22 16:09 Pulse Ox 95 05/23/22 16:09 O2 Del Method 05/23/22 16:09 BMI result Body Mass Index 34.0 <CATHERINE Caraballo - Last Filed: 05/23/22 16:15> Vital Signs: Last Vital Signs Temp 97.7 F 05/23/22 16:09 Pulse 76 05/23/22 16:09 Resp 16 05/23/22 16:09 BP 134/65 05/23/22 16:09 Pulse Ox 95 05/23/22 16:09 O2 Del Method 05/23/22 16:09 BMI result Body Mass Index 34.0 VITAL SIGNS: Reviewed. GENERAL: Well developed, well nourished, in no acute distress. HEAD: Normocephalic/atraumatic EYES: PERRLA, EOMI LUNGS: Bibasilar rales noted SpO2<95> CARDIOVASCULAR: Regular rate and rhythm without noted murmurs, no JVD or lower extremity edema. ABDOMEN: Soft, non-tender, non-distended with bowel sounds. MUSCULOSKELETAL: No tenderness, deformities, or effusions noted on gross inspection. EXTREMITIES: No cyanosis, clubbing or edema. SKIN: Inspection of the skin reveals no rashes NEUROLOGIC: Alert and oriented x 4. Strength and sensation to light touch were grossly intact x 4. <Susi Lew MD - Last Filed: 05/23/22 22:31> Course Course Course Narrative: RMEileen - [id number], with a history of DMII, GARCIA, HTN, depression, and CKD, presenting here via EMS for evaluation of SOB. Was previously admitted on 05/16- 05/21 for pleural effusion, elevated LFTs of unclear etiology. O2 saturation in the 90s. Bibasilar rales in BL bases. ?lasix was discontinued during recent admission. Patient is stable to return to the waiting room until a treatment room becomes available. Labs, EKG, chest xray ordered. <CATHERINE Caraballo - Last Filed: 05/23/22 16:15> Medications Administered Discontinued Medications Generic Name Dose Route Start Last Admin Trade Name Freq PRN Reason Stop Dose Admin Furosemide 60 mg 05/23/22 20:08 05/23/22 21:26 Furosemide 100 Mg/10 Ml Vial IVPUSH 05/23/22 20:09 60 mg ONCE ONE Administration Protocol <CATHERINE Caraballo - Last Filed: 05/23/22 16:15> Medications Administered Discontinued Medications Generic Name Dose Route Start Last Admin Trade Name Arlene PRN Reason Stop Dose Admin Furosemide 60 mg 05/23/22 20:08 05/23/22 21:26 Furosemide 100 Mg/10 Ml Vial IVPUSH 05/23/22 20:09 60 mg ONCE ONE Administration Protocol <Susi Lew MD - Last Filed: 05/23/22 22:31> Medical Decision Making Medical Decision Making MDM Narrative: 56-year-old male with history and clinical presentation on review of all investigations most consistent with CHF exacerbation, stable CKD. Will start IV and administer 60 mg of Lasix. The new blood pressure medication that patient started on was nifedipine. I discussed this case with the inpatient hospitalist who accepts admission. <Susi Lew MD - Last Filed: 05/23/22 22:31> Differential Diagnosis Differential Diagnoses: The differential diagnosis associated with the presentation includes <Susi Lew MD - Last Filed: 05/23/22 22:31> Please see the discussion above <Susi Lew MD - Last Filed: 05/23/22 22:31> Consult Healthcare Provider Management of the patient was discussed with: Hospitalist <Susi Lew MD - Last Filed: 05/23/22 22:31> Lab Data [facility] Lab Attestation statement: I reviewed the patient's lab results. <Susi Lew MD - Last Filed: 05/23/22 22:31> Please see the discussion above <Susi Lew MD - Last Filed: 05/23/22 22:31> Result Diagrams: 05/23/22 15:47 05/23/22 15:47 <CATHERINE Caraballo - Last Filed: 05/23/22 16:15> Labs: Lab Results 05/23/22 05/23/22 05/23/22 Range/Units 15:47 15:47 15:47 WBC 9.9 (4.8-10.8) X10*3/uL RBC 2.99 L (4.60-5.80) X10*6/uL Hgb 9.0 L (14.0-18.0) g/dl Hct 26.3 L (42.0-52.0) % MCV 88.0 (80.0-98.0) fL MCH 30.1 (27.0-33.0) pg MCHC 34.2 (31.0-36.0) g/dl RDW 12.8 (11.0-16.0) % Plt Count 319 (160-400) X10*3/uL MPV 9.7 (9.4-12.4) fL Immature Gran % (Auto) 0.6 H (0.0-0.4) % Neut % (Auto) 76.5 H (45-73) % Lymph % (Auto) 10.7 L (20-40) % [place] % (Auto) 9.6 (2-11) % Eos % (Auto) 1.7 (0-4) % Baso % (Auto) 0.9 (0-2) % Lymph # (Auto) 1.1 L (1.2-4.9) X10*3/uL [place] # (Auto) 1.0 (0.1-1.2) X10*3/uL Eos # (Auto) 0.2 (0.0-0.4) X10*3/uL Baso # (Auto) 0.1 (0.0-0.2) X10*3/uL Abs Immat Gran (auto) 0.06 H (0.00-0.03) X10*3/uL Absolute Neuts (auto) 7.6 (2.0-8.3) x10*3/uL Absolute Nucleated RBC 0.000 (0.0-0.012) X10*3/uL Nucleated RBC % (auto) 0.0 (0.0-0.2) /100WBC Sodium 134 L (135-145) mmol/L Potassium 4.7 (3.3-5.1) mmol/L Chloride 103 (96-108) mmol/L Carbon Dioxide 22 (22-29) mmol/L Anion Gap 14 (12-20) BUN 58 H (9-16) mg/dL Creatinine 3.06 H (0.5-1.4) mg/dL Estim Creat Clear Calc 32.0 Estimated GFR 21 Random Glucose 78 (60-115) mg/dL Calcium 8.9 (8.4-10.2) mg/dL Magnesium 1.8 (1.6-2.6) mg/dL Total Bilirubin 1.3 H (0.0-1.0) mg/dL Direct Bilirubin 0.7 H (0.0-0.5) mg/dL AST 38 H (5-37) U/L ALT 98 H (0-40) U/L Alkaline Phosphatase 413 H (39-117) U/L Troponin I High Sens (<3.5-35.0) ng/L B-Natriuretic Peptide (<100) pg/mL Total Protein 6.7 (6.5-8.0) g/dL Albumin 3.7 (3.5-5.0) g/dL COVID-19 (ANGI) Negative (Negative) COVID-19 Clin Com See Note 05/23/22 05/23/22 Range/Units 15:47 21:04 WBC (4.8-10.8) X10*3/uL RBC (4.60-5.80) X10*6/uL Hgb (14.0-18.0) g/dl Hct (42.0-52.0) % MCV (80.0-98.0) fL MCH (27.0-33.0) pg MCHC (31.0-36.0) g/dl RDW (11.0-16.0) % Plt Count (160-400) X10*3/uL MPV (9.4-12.4) fL Immature Gran % (Auto) (0.0-0.4) % Neut % (Auto) (45-73) % Lymph % (Auto) (20-40) % [place] % (Auto) (2-11) % Eos % (Auto) (0-4) % Baso % (Auto) (0-2) % Lymph # (Auto) (1.2-4.9) X10*3/uL [place] # (Auto) (0.1-1.2) X10*3/uL Eos # (Auto) (0.0-0.4) X10*3/uL Baso # (Auto) (0.0-0.2) X10*3/uL Abs Immat Gran (auto) (0.00-0.03) X10*3/uL Absolute Neuts (auto) (2.0-8.3) x10*3/uL Absolute Nucleated RBC (0.0-0.012) X10*3/uL Nucleated RBC % (auto) (0.0-0.2) /100WBC Sodium (135-145) mmol/L Potassium (3.3-5.1) mmol/L Chloride (96-108) mmol/L Carbon Dioxide (22-29) mmol/L Anion Gap (12-20) BUN (9-16) mg/dL Creatinine (0.5-1.4) mg/dL Estim Creat Clear Calc Estimated GFR Random Glucose (60-115) mg/dL Calcium (8.4-10.2) mg/dL Magnesium (1.6-2.6) mg/dL Total Bilirubin (0.0-1.0) mg/dL Direct Bilirubin (0.0-0.5) mg/dL AST (5-37) U/L ALT (0-40) U/L Alkaline Phosphatase (39-117) U/L Troponin I High Sens 9.2 (<3.5-35.0) ng/L B-Natriuretic Peptide 441 H (<100) pg/mL Total Protein (6.5-8.0) g/dL Albumin (3.5-5.0) g/dL COVID-19 (ANGI) (Negative) COVID-19 Clin Com <CATHERINE Caraballo - Last Filed: 05/23/22 16:15> Lab Results 05/23/22 05/23/22 05/23/22 Range/Units 15:47 15:47 15:47 WBC 9.9 (4.8-10.8) X10*3/uL RBC 2.99 L (4.60-5.80) X10*6/uL Hgb 9.0 L (14.0-18.0) g/dl Hct 26.3 L (42.0-52.0) % MCV 88.0 (80.0-98.0) fL MCH 30.1 (27.0-33.0) pg MCHC 34.2 (31.0-36.0) g/dl RDW 12.8 (11.0-16.0) % Plt Count 319 (160-400) X10*3/uL MPV 9.7 (9.4-12.4) fL Immature Gran % (Auto) 0.6 H (0.0-0.4) % Neut % (Auto) 76.5 H (45-73) % Lymph % (Auto) 10.7 L (20-40) % [place] % (Auto) 9.6 (2-11) % Eos % (Auto) 1.7 (0-4) % Baso % (Auto) 0.9 (0-2) % Lymph # (Auto) 1.1 L (1.2-4.9) X10*3/uL [place] # (Auto) 1.0 (0.1-1.2) X10*3/uL Eos # (Auto) 0.2 (0.0-0.4) X10*3/uL Baso # (Auto) 0.1 (0.0-0.2) X10*3/uL Abs Immat Gran (auto) 0.06 H (0.00-0.03) X10*3/uL Absolute Neuts (auto) 7.6 (2.0-8.3) x10*3/uL Absolute Nucleated RBC 0.000 (0.0-0.012) X10*3/uL Nucleated RBC % (auto) 0.0 (0.0-0.2) /100WBC Sodium 134 L (135-145) mmol/L Potassium 4.7 (3.3-5.1) mmol/L Chloride 103 (96-108) mmol/L Carbon Dioxide 22 (22-29) mmol/L Anion Gap 14 (12-20) BUN 58 H (9-16) mg/dL Creatinine 3.06 H (0.5-1.4) mg/dL Estim Creat Clear Calc 32.0 Estimated GFR 21 Random Glucose 78 (60-115) mg/dL Calcium 8.9 (8.4-10.2) mg/dL Magnesium 1.8 (1.6-2.6) mg/dL Total Bilirubin 1.3 H (0.0-1.0) mg/dL Direct Bilirubin 0.7 H (0.0-0.5) mg/dL AST 38 H (5-37) U/L ALT 98 H (0-40) U/L Alkaline Phosphatase 413 H (39-117) U/L Troponin I High Sens (<3.5-35.0) ng/L B-Natriuretic Peptide (<100) pg/mL Total Protein 6.7 (6.5-8.0) g/dL Albumin 3.7 (3.5-5.0) g/dL COVID-19 (ANGI) Negative (Negative) COVID-19 Clin Com See Note 05/23/22 05/23/22 Range/Units 15:47 21:04 WBC (4.8-10.8) X10*3/uL RBC (4.60-5.80) X10*6/uL Hgb (14.0-18.0) g/dl Hct (42.0-52.0) % MCV (80.0-98.0) fL MCH (27.0-33.0) pg MCHC (31.0-36.0) g/dl RDW (11.0-16.0) % Plt Count (160-400) X10*3/uL MPV (9.4-12.4) fL Immature Gran % (Auto) (0.0-0.4) % Neut % (Auto) (45-73) % Lymph % (Auto) (20-40) % [place] % (Auto) (2-11) % Eos % (Auto) (0-4) % Baso % (Auto) (0-2) % Lymph # (Auto) (1.2-4.9) X10*3/uL [place] # (Auto) (0.1-1.2) X10*3/uL Eos # (Auto) (0.0-0.4) X10*3/uL Baso # (Auto) (0.0-0.2) X10*3/uL Abs Immat Gran (auto) (0.00-0.03) X10*3/uL Absolute Neuts (auto) (2.0-8.3) x10*3/uL Absolute Nucleated RBC (0.0-0.012) X10*3/uL Nucleated RBC % (auto) (0.0-0.2) /100WBC Sodium (135-145) mmol/L Potassium (3.3-5.1) mmol/L Chloride (96-108) mmol/L Carbon Dioxide (22-29) mmol/L Anion Gap (12-20) BUN (9-16) mg/dL Creatinine (0.5-1.4) mg/dL Estim Creat Clear Calc Estimated GFR Random Glucose (60-115) mg/dL Calcium (8.4-10.2) mg/dL Magnesium (1.6-2.6) mg/dL Total Bilirubin (0.0-1.0) mg/dL Direct Bilirubin (0.0-0.5) mg/dL AST (5-37) U/L ALT (0-40) U/L Alkaline Phosphatase (39-117) U/L Troponin I High Sens 9.2 (<3.5-35.0) ng/L B-Natriuretic Peptide 441 H (<100) pg/mL Total Protein (6.5-8.0) g/dL Albumin (3.5-5.0) g/dL COVID-19 (ANGI) (Negative) COVID-19 Clin Com <Susi Lew MD - Last Filed: 05/23/22 22:31> Independent Interpretation I performed an independent interpretation of an: EKG <Susi Lew MD - Last Filed: 05/23/22 22:31> Interpretation: Normal sinus rhythm, HR -78, no STEMI, IL/QRS/QTC is within normal limits. <Susi Lew MD - Last Filed: 05/23/22 22:31> Radiology Impression Radiologist Impression: My interpretation is in agreement with radiology's impression of the imaging study. <Susi Lew MD - Last Filed: 05/23/22 22:31> External Record Review External record reviewed: Inpatient record, Outpatient record and Prior outpatient labs <Susi Lew MD - Last Filed: 05/23/22 22:31> Chronic Conditions Patient?s care impacted by: Diabetes and Hypertension <Susi Lew MD - Last Filed: 05/23/22 22:31> Critical Care Time Critical Care Time Critical Care Time: Yes <Susi Lew MD - Last Filed: 05/23/22 22:31> Total Critical Care Time: 30 <Susi Lew MD - Last Filed: 05/23/22 22:31> Attestation: I personally attest to this time spent taking care of the patient. <Susi Lew MD - Last Filed: 05/23/22 22:31> Discharge Plan Discharge Clinical Impression: Acute exacerbation of congestive heart failure, Dyspnea <CATHERINE Caraballo - Last Filed: 05/23/22 16:15> Patient Disposition: Admitted As Inpatient <CATHERINE Caraballo - Last Filed: 05/23/22 16:15> Prescriptions: No Action clonazepam 0.5 mg tablet 0.5 mg PO TID PRN (Reason: anxiety) Qty: 90 5RF (DME) lancets [FreeStyle Lancets] 28 gauge misc See Rx Instructions .MEDSUPPLY Qty: 150 5RF Rx Instructions: 4 times a day gabapentin 300 mg capsule 300 mg PO BID Qty: 60 8RF cholecalciferol (vitamin D3) [D3-2000] 50 mcg (2,000 unit) capsule 50 mcg PO DAILY Qty: 30 11RF omega-3 acid ethyl esters 1 gram capsule 2 cap PO BID 30 Days Qty: 120 11RF (DME) FreeStyle John 14 Day Sensor Kit See Rx Instructions .Route Qty: 1 0RF Rx Instructions: As directed (DME) blood pressure monitor [Blood Pressure Kit] Kit See Rx Instructions .Route Qty: 1 0RF Rx Instructions: As directed losartan 50 mg tablet 50 mg PO DAILY Qty: 90 8RF Tradjenta 5 mg tablet 5 mg PO DAILY 30 Days Qty: 30 6RF venlafaxine 150 mg capsule,extended release 24hr 150 mg PO DAILY meclizine 25 mg tablet 25 mg PO Q6H PRN (Reason: Dizziness) trazodone 150 mg tablet 150 mg PO BEDTIME PRN (Reason: Sleep) insulin aspart U-100 [Novolog FlexPen U-100 Insulin] 100 unit/mL (3 mL) insulin pen 14 unit subcut TIDAC bupropion HCl 150 mg tablet extended release 24 hr 150 mg PO DAILY Toujeo Max U-300 SoloStar 300 unit/mL (3 mL) insulin pen 70 unit subcut DAILY Rx Instructions: in the morning nifedipine 30 mg Tablet Extended Release 24hr 60 mg PO DAILY Qty: 30 0RF Protocol: Hold for SBP< HOLD for SBP < : 90 (DME) Blood Pressure Cuff Misc See Rx Instructions .Route Qty: 1 0RF Rx Instructions: As directed multivitamin with folic acid [Tab-A-George] 400 mcg tablet 1 tab PO DAILY (DME) pen needle, diabetic [Ultracare Pen Needle] 32 gauge x 3/16 needle See Rx Instructions .ROUTE .MEDSUPPLY Qty: 50 Rx Instructions: As directed famotidine 20 mg tablet 20 mg PO BID Qty: 180 8RF metoclopramide HCl 5 mg tablet 5 mg PO QID Qty: 360 2RF simethicone 180 mg capsule 180 mg PO TID Qty: 90 1RF labetalol 200 mg tablet 200 mg PO BID Qty: 60 3RF (DME) pen needle, diabetic [BD Kacey 2nd Gen Pen Needle] 32 gauge x 5/32 needle See Rx Instructions .MEDSUPPLY Qty: 400 6RF Rx Instructions: 5 times a day <CATHERINE Caraballo - Last Filed: 05/23/22 16:15>
--- NOTE | 2022-05-23 15:18 | ECG_ITS ---
Test Reason : SOB Blood Pressure : / mmHG Vent. Rate : 078 BPM Atrial Rate : 078 BPM P-R Int : 146 ms QRS Dur : 084 ms QT Int : 398 ms P-R-T Axes : 047 025 056 degrees QTc Int : 453 ms Normal sinus rhythm Nonspecific T wave abnormality Abnormal ECG When compared with ECG of 16-MAY-2022 14:00, No significant change was found Referred By: Katerina Tafoya Electronically Signed By:KATHERINE SMITH
[2022-05-23 15:52] LABS: MANUAL DIFF FLAG NO
[2022-05-23 15:54] LABS: Basophils Absolute Auto 0.1 X10*3/uL (0.0-0.2); Basophils Percent Auto 0.9 % (0-2); Eosinophils Absolute Auto 0.2 X10*3/uL (0.0-0.4); Eosinophils Percent Auto 1.7 % (0-4); Hematocrit 26.3 % (42.0-52.0); Imm Gran Abs Auto 0.06 X10*3/uL (0.00-0.03); Imm Gran Pct Auto 0.6 % (0.0-0.4); Lymphocytes Absolute Auto 1.1 X10*3/uL (1.2-4.9); Lymphocytes Percent Auto 10.7 % (20-40); Mean Corpuscular HGB Conc 34.2 g/dl (31.0-36.0); Mean Corpuscular Hemoglobin 30.1 pg (27.0-33.0); Mean Platelet Volume 9.7 fL (9.4-12.4); Monocytes Percent Auto 9.6 % (2-11); Neutrophils Absolute Auto 7.6 x10*3/uL (2.0-8.3); Neutrophils Percent Auto 76.5 % (45-73); Platelet Count 319 X10*3/uL (160-400); Red Blood Count 2.99 X10*6/uL (4.60-5.80); Red Cell Distribution Width 12.8 % (11.0-16.0); White Blood Count 9.9 X10*3/uL (4.8-10.8)
[2022-05-23 16:09] VITALS: BP 134/65; PULSE 76; RESP 16; TEMP 36.5; O2SAT 95; BMI 34.0
[2022-05-23 16:17] LABS: Alanine Aminotransferase 98 U/L (0-40); Albumin Level 3.7 g/dL (3.5-5.0); Alkaline Phosphatase 413 U/L (39-117); Anion Gap 14 (12-20); Aspartate Amino Transferase 38 U/L (5-37); Bilirubin Direct 0.7 mg/dL (0.0-0.5); Bilirubin Total 1.3 mg/dL (0.0-1.0); Blood Urea Nitrogen 58 mg/dL (9-16); Calcium 8.9 mg/dL (8.4-10.2); Carbon Dioxide 22 mmol/L (22-29); Chloride 103 mmol/L (96-108); Estimated Glomerular Filt Rate 21; Glucose Random 78 mg/dL (60-115); Magnesium 1.8 mg/dL (1.6-2.6); Potassium 4.7 mmol/L (3.3-5.1); Sodium 134 mmol/L (135-145); Total Protein 6.7 g/dL (6.5-8.0)
[2022-05-23 16:21] LABS: B Type Natriuretic Peptide 441 pg/mL (<100)
[2022-05-23 16:28] LABS: COVID-19 Test Negative (Negative); IDNOW Serial# 55D5AD1C
[2022-05-23] MEDS: Furosemide 100 MG/10 ML VIAL 60 MG IVPUSH (21:26)
[2022-05-23 21:31] LABS: Troponin-I High Sensitivity 9.2 ng/L (<3.5-35.0)
--- NOTE | 2022-05-23 22:27 | PC.NURSE ---
pt urine output 700cc
--- NOTE | 2022-05-23 23:35 | PC.NURSE ---
pt urine output 600cc
--- NOTE | 2022-05-23 23:44 | PM.IMHP ---
History of Present Illness Date of Service: 05/23/22 Chief Complaint: shortness of breath 56-year-old male with past medical history of hypertension, CKD stage 3, depression, diabetes, GERD, HLD, sleep apnea, vitamin-D deficiency among others, presents to the hospital with complaints of shortness of breath. Of note patient was discharged from the hospital on 05/21 after being evaluated for abdominal pain as well as elevated LFTs. Patient returns today stating that he has been having shortness of breath 2 days prior to discharge at that time contributed to anxiety. He reports shortness of breath on minimal exertion, becoming significantly fatigue and dyspnea acute on walking few feet in his house, he also reports a cough that is dry nonproductive. Denies any lower extremity edema no orthopnea or PND. Any abdominal pain, nausea or vomiting, no diarrhea constipation, no urinary symptoms. On arrival to the ED patient hemodynamically stable with no significant abnormal vitals satting 95% on room air Labs are significant for WBC count of 9.9, hemoglobin of 9.0, hematocrit 26.3, sodium of 134, creatinine of 3.06 which is around his baseline, total bili of 1.3, AST of 38, ALT of 98, alk-phos of 413 which all have decreased since discharge, BNP of 441, Patient has no history of CHF and reports no chest pain. 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 Surgical History H/O colonoscopy History of esophagogastroduodenoscopy (EGD) Hx of arthroscopy of knee Hx of arthroscopy of right knee Social History Household Members: Family Household Members Other:: SISTER Housing: Apartment Do you presently have visiting nurse or other home services: Yes Alcohol intake: never Patient Tobacco Use Status: Never used Tobacco e-Cigarette/Vaping Use: Never Used Second Hand Smoke Exposure: Yes (HISTORY OF SECOND HAND SMOKE EXPOSURE) Advance Directives: Yes Advance Directives on File: Yes Advance Directives Date on File: 05/05/20 service: No Current occupational status: disabled Current occupation: right handed Cognitive needs: No Hearing needs: No Vision needs: No Meds Allergies Allergy/AdvReac Type Severity Reaction Status Date / Time cephalexin [From KEFLEX] Allergy Mild ITCHY Verified 05/23/22 16:16 THROAT lisinopril [LISINOPRIL] Allergy Unknown SWELLING Verified 05/23/22 16:16 COUGH Active Medications: Current Medications Pharmacy Consult (Consult Rx Perform Med Rec) 1 each MISCELLANE ONCE PRN PRN Reason: Consult order Home Medications Medication Instructions Recorded Confirmed Last Taken Type venlafaxine 150 mg 150 mg PO DAILY 10/30/21 05/16/22 05/16/22 History capsule,extended release 24 hr multivitamin with folic acid 400 1 tab PO DAILY 03/06/22 05/16/22 05/16/22 History mcg tablet (Tab-A-George) pen needle, diabetic 32 gauge x #50 ea 03/06/22 04/16/22 Unknown History 06/14 (Ultracare Pen Needle) bupropion HCl 150 mg 24 hr tablet, 150 mg PO DAILY 05/16/22 05/16/22 05/16/22 History extended release insulin aspart U-100 100 unit/mL 14 unit subcut TIDAC 05/16/22 05/16/22 05/16/22 History (3 mL) subcutaneous pen (Novolog FlexPen U-100 Insulin aspart) insulin glargine U-300 conc 300 70 unit subcut DAILY 05/16/22 05/16/22 05/15/22 History unit/mL (3 mL) subcutaneous pen (Toujeo Max U-300 SoloStar) meclizine 25 mg tablet 25 mg PO Q6H PRN Dizziness 05/16/22 05/16/22 Unknown History trazodone 150 mg tablet 150 mg PO BEDTIME PRN Sleep 05/16/22 05/16/22 05/15/22 History Physical Exam Vital Signs and Narrative: Vital Signs: Last Vital Signs Temp 97.7 F 05/23/22 16:09 Pulse 76 05/23/22 16:09 Resp 16 05/23/22 16:09 BP 134/65 05/23/22 16:09 Pulse Ox 95 05/23/22 16:09 O2 Del Method 05/23/22 16:09 BMI result Body Mass Index 34.0 Const: General: cooperative and no acute distress Orientation/consciousness: patient oriented x3 Eyes: General: appearance normal, both eyes and all related structures Resp: Other: Crackles bilaterally Effort & Inspection: normal respiratory effort Cardio: Rate: regular rate Rhythm: regular rhythm GI: Palpation (GI): Soft to palpation Auscultation: normal bowel sounds Skin: General skin exam: no rashes or lesions noted Neuro: General: patient oriented x3 Cognition (Neuro): normal cognition Extrem: General: Yes normal to inspection and Yes no pedal edema Results Labs 05/23/22 15:47 05/23/22 15:47 Labs: Laboratory Results - last 24 hr 05/23/22 05/23/22 05/23/22 15:47 15:47 15:47 MCV 88.0 MCH 30.1 MCHC 34.2 RDW 12.8 Plt Count 319 MPV 9.7 Immature Gran % (Auto) 0.6 H Neut % (Auto) 76.5 H Lymph % (Auto) 10.7 L Glynn % (Auto) 9.6 Eos % (Auto) 1.7 Baso % (Auto) 0.9 Lymph # (Auto) 1.1 L Glynn # (Auto) 1.0 Eos # (Auto) 0.2 Baso # (Auto) 0.1 Abs Immat Gran (auto) 0.06 H Absolute Neuts (auto) 7.6 Absolute Nucleated RBC 0.000 Nucleated RBC % (auto) 0.0 Anion Gap 14 Estim Creat Clear Calc 32.0 Estimated GFR 21 Random Glucose 78 Calcium 8.9 Magnesium 1.8 Total Bilirubin 1.3 H Direct Bilirubin 0.7 H AST 38 H ALT 98 H Alkaline Phosphatase 413 H Troponin I High Sens B-Natriuretic Peptide Total Protein 6.7 Albumin 3.7 COVID-19 (ANGI) Negative COVID-19 Clin Com See Note 05/23/22 05/23/22 15:47 21:04 MCV MCH MCHC RDW Plt Count MPV Immature Gran % (Auto) Neut % (Auto) Lymph % (Auto) Glynn % (Auto) Eos % (Auto) Baso % (Auto) Lymph # (Auto) Glynn # (Auto) Eos # (Auto) Baso # (Auto) Abs Immat Gran (auto) Absolute Neuts (auto) Absolute Nucleated RBC Nucleated RBC % (auto) Anion Gap Estim Creat Clear Calc Estimated GFR Random Glucose Calcium Magnesium Total Bilirubin Direct Bilirubin AST ALT Alkaline Phosphatase Troponin I High Sens 9.2 B-Natriuretic Peptide 441 H Total Protein Albumin COVID-19 (ANGI) COVID-19 Clin Com Imaging Radiologist's Impressions: Impressions Chest X-Ray 05/23/22 15:52 IMPRESSION: Diffuse interstitial prominence with Janis B-lines suggestive of interstitial edema. Assessment and Plan (1) Acute exacerbation of congestive heart failure: Qualifiers: Heart failure type: unspecified Qualified Code(s): I50.9 - Heart failure, unspecified Status: Acute (2) New onset of congestive heart failure: Status: Acute (3) Transaminitis: Status: Acute Plan this is a 56-year-old with past medical history of hypertension, diabetes, hyperlipidemia, CKD stage 3, recently admitted for transaminitis returns to the hospital today with complaints of shortness of breath found to have acute CHF # new onset congestive heart failure / acute CHF exacerbation - unknown etiology, has elevated BNP, imaging suggestive of CHF, dyspnea, fatigue - patient received Lasix in the ED, will continue 40 mg of Lasix daily - daily weight, strict I&O, low-sodium diet - cardiology consulted - echocardiogram # transaminitis - patient had extensive workup on recent admission for the same, numbers appear to have improved since discharge and are trending down - continue to follow CMP - no abdominal pain today # diabetes - continue home insulin sign - will add low-dose sliding scale insulin, diabetic diet # hypertension - stable - continue antihypertensives # CKD stage 3 - at baseline - continue following BMP # obesity - was diet, exercise, would recommend follow-up outpatient with PCP DVT prophylaxis: Heparin subQ given new onset CHF and exacerbation requiring IV Lasix patient will require minimum 2 nights inpatient hospital stay for further management and monitoring Time Spent With Patient Time: Total time managing care of this patient today ____ minutes. Quality Stroke Does the patient have a stroke diagnosis?: No VTE Prior VTE?: No VTE Risk Level:: Medical - moderate - high VTE Device Contraindication: Treatment Not Indicated VTE Drug Contraindication: N/A - Med Ordered
[2022-05-24] VITALS (7 sets, daily range): BP systolic 155–210; BP diastolic 72–92; PULSE 68–94; RESP 14–20; TEMP 36.3–36.6; O2SAT 93–99; BMI 33.1
[2022-05-24] MEDS: Heparin Sodium,Porcine 5,000 UNIT/ML VIAL 5000 UNIT SUBCUT ×2 (00:55→14:28)
--- NOTE | 2022-05-24 05:13 | MHC.EDTECH ---
see paper chart
[2022-05-24] MEDS: 0.9 % Sodium Chloride Flush 3 ML SYRINGE IVFLUSH ×3 (05:41→21:16)
--- NOTE | 2022-05-24 05:51 | PC.NURSE ---
Pt assessed during the shift. pt awake voiding in the urinal, tolerating well, denies any pain
[2022-05-24 06:04] LABS: Appearance Urine Hazy; Color Urine Yellow; Glucose Urine UA Negative (Negative); Leukocyte Esterase Urine Small (1+) (Negative); Nitrite Urine Negative (Negative); PH 6.5 (5.0-9.0); UMIC TRIGGER UACC YES; Urine Blood Trace (Negative); Urine Ketones Negative (Negative); Urine Protein Negative (Neg-Trace)
[2022-05-24 06:05] LABS: Bacteria Urine None Seen (None Seen); Hyaline Casts Urine 0-2 /LPF (0-2); RBC Urine 0-2 /HPF (0-2); Squamous Epithelial Cell Urine 0-2 /HPF (0-2); UACC Culture Trigger YES; WBC Urine 0-5 /HPF (0-5)
--- NOTE | 2022-05-24 06:19 | PC.NURSE ---
Addendum entered by Estefany Ramirez RN 05/24/22 06:21: changed order not to use lasix ivp Original Note: pt hypertensive, aware, medicated with 40mg of lasix ivp per
[2022-05-24] MEDS: hydrALAZINE HCl 20 MG/ML VIAL 5 MG IVPUSH (06:39)
--- NOTE | 2022-05-24 07:01 | CA_ITS ---
Transthoracic Echocardiogram Patient (Last, First, Middle): Larry Dias V Gender: Male Date of : 1965 Age: 56 Procedure Date: 05/24/2022 Procedure Type: Transthoracic Echocardiogram Location: ER Height: 175.26 cm Weight: 104.33 kg BSA: 2.19 m2 Heart Rate: bpm BP: 187 / 87 mmHg Pan Dumper: SB Referring MD: Byron Wood MD Symptoms: CHF Study Quality: Fair/Contrast ECG Rhythm: Sinus Conclusions: - The left ventricular systolic function is normal. The visually estimated ejection fraction is between 60-65%. - Possible mild basal inferior hypokinesis. - No obvious valvular pathology seen on this study. - There is a small loculated pericardial effusion overlying the left atrium and right atrium. Findings Procedure Information Contrast agent, definity, is being given per protocol without apparent complications. Left Ventricle Normal left ventricular cavity size. There is normal left ventricular wall thickness. The left ventricular systolic function is normal. The visually estimated ejection fraction is between 60-65%. Diastolic function is normal for age. Possible mild basal inferior hypokinesis. Right Ventricle Normal right ventricular cavity size and systolic function. Atria Both atria are normal in size. Aortic Valve There is a normal trileaflet aortic valve. There is no aortic valve stenosis. There is no aortic valve regurgitation. Mitral Valve The mitral valve appears normal. There is no mitral valve regurgitation. There is no mitral valve stenosis. Pulmonic Valve The pulmonic valve is likely normal. Tricuspid Valve Normal tricuspid valve structure. There is trace tricuspid valve regurgitation. There is no evidence of pulmonary hypertension. Great Vessels The aortic annulus, sinuses of valsalva, and asc aorta are normal in size. Venous The inferior vena cava is normal in size and collapses greater than 50% with inspiration. Pericardium/Pleural There is a small loculated pericardial effusion overlying the left atrium and right atrium. Prior Study Comparison Changes noted compared to prior study dated: 12/25/2021. Pericardial effusion a bit more prominent. Recommendations, Care & Conclusions No obvious valvular pathology seen on this study. Measurements 2D Linear Measurements IVSd: 0.95 0.6-0.9/0.6-1.0 cm LVIDd: 4.85 3.9-5.3/4.2-5.9 cm LVIDd Index: 2.21 2.4-3.2/2.2-3.1 cm/m2 LVIDs: 3.37 2.0-3.6 cm LVPWd: 0.76 0.7-1.1 cm LA Diam: 3.70 2.7-3.8/3.0-4.0 cm LAIDs Index: 1.69 1.5-2.3 cm/m2 LV Mass: 175.62 67-162/88-224 g LV Mass Index: 80.19 43-95/49-115 g/m2 LVOT Diam: 2.00 3.0+(-)1.3 cm 2D Systolic Function EF 4C: 71.50 >55% EF 2C: 68.90 >55% EF BiP: 70.10 >55% Mitral Valve MV Pk E: 1.02 MV PK A: 0.89 MV Decel Time: 158.00 E/A: 1.10 E'Lateral: 9.46 E'Medial: 6.09 E/E' Med: 16.70 E/E' Lat: 10.80 PHT: 46.00 MVA PHT: 4.78 Decel [place]: 6.44 Aortic Valve AoV Pk Adrian: 1.55 AoV Pk Grad: 10.00 LVOT LVOT Pk Adrian: 1.09 LVOT Mn Adrian: 0.72 LVOT VTI: 0.22 LVOT Pk Grad: 5.00 LVOT Mn Grad: 3.00 LVOT Diam: 2.00 LVOT Area: 3.14 Diastolic Function MV Pk E: 1.02 MV Pk A: 0.89 E/A: 1.10 E'Medial: 6.09 E/E' Med: 16.70 E' Laterial: 9.46 E/E' Lat: 10.80 Right Ventricle TAPSE (mm): 18.00 TVS' Adrian: 13.10 Tricuspid Valve RA Press: 3.00 Great Vessels Aorta Sinus of Valsalva: 3.30 2.0-3.5 cm Ao Asc: 2.80 2.1-3.4 cm Pulmonary Valve PV Pk Adrian: 1.26 Peak PV Grad: 6.00 Updated in Other Vendor System with Status of Final Freedom Pedroza MD electronically signed on 05/24/2022 11:32:31 AM with status of Final
[2022-05-24 07:04] LABS: MANUAL DIFF FLAG NO
[2022-05-24 07:06] LABS: Basophils Absolute Auto 0.1 X10*3/uL (0.0-0.2); Basophils Percent Auto 1.1 % (0-2); Eosinophils Absolute Auto 0.1 X10*3/uL (0.0-0.4); Hematocrit 30.3 % (42.0-52.0); Hemoglobin 10.1 g/dl (14.0-18.0); Imm Gran Abs Auto 0.07 X10*3/uL (0.00-0.03); Imm Gran Pct Auto 0.7 % (0.0-0.4); Lymphocytes Absolute Auto 1.1 X10*3/uL (1.2-4.9); Lymphocytes Percent Auto 11.8 % (20-40); Mean Corpuscular HGB Conc 33.3 g/dl (31.0-36.0); Mean Corpuscular Hemoglobin 28.9 pg (27.0-33.0); Mean Corpuscular Volume 86.8 fL (80.0-98.0); Mean Platelet Volume 9.6 fL (9.4-12.4); Monocytes Absolute Auto 0.7 X10*3/uL (0.1-1.2); Monocytes Percent Auto 7.7 % (2-11); Neutrophils Absolute Auto 7.3 x10*3/uL (2.0-8.3); Neutrophils Percent Auto 77.7 % (45-73); Platelet Count 373 X10*3/uL (160-400); Red Blood Count 3.49 X10*6/uL (4.60-5.80); Red Cell Distribution Width 12.4 % (11.0-16.0); White Blood Count 9.4 X10*3/uL (4.8-10.8)
--- NOTE | 2022-05-24 07:19 | PC.NURSE ---
Patient awake AOx 4 neuros intact remains hypertensive denies chest pain or current SOB. No crackles appreciated on auscultation LS diminished. Will CTM
[2022-05-24 07:30] LABS: Glucose, Whole Blood 122 mg/dL (60-115)
[2022-05-24 07:36] LABS: Alanine Aminotransferase 95 U/L (0-40); Albumin Level 3.9 g/dL (3.5-5.0); Alkaline Phosphatase 446 U/L (39-117); Anion Gap 18 (12-20); Aspartate Amino Transferase 33 U/L (5-37); Bilirubin Total 1.5 mg/dL (0.0-1.0); Blood Urea Nitrogen 54 mg/dL (9-16); Calcium 9.3 mg/dL (8.4-10.2); Carbon Dioxide 22 mmol/L (22-29); Chloride 101 mmol/L (96-108); Creatinine Clr Calc Pharmacy 35.4; Estimated Glomerular Filt Rate 24; Glucose Random 117 mg/dL (60-115); Potassium 4.1 mmol/L (3.3-5.1); Sodium 137 mmol/L (135-145); Total Protein 7.1 g/dL (6.5-8.0)
--- NOTE | 2022-05-24 07:47 | PHA.MEDREC ---
Pharmacy Consult ? Medication Reconciliation Pharmacy has reviewed the medication reconciliation completed by Estefany. There are no remarkable issues for provider's attention. Opal Brown, PharmD
[2022-05-24] MEDS: Furosemide 40 MG/4 ML VIAL IVPUSH (08:03)
--- NOTE | 2022-05-24 08:16 | PC.NURSE ---
Inpatient MD notified patient remains hypertensive awaiting orders
--- NOTE | 2022-05-24 10:31 | P.CONCA_ITS ---
History of Present Illness History of Present Illness Date of Service: 05/24/22 Chief complaint: SOB, from home per EMS (3) Narrative: This is a cardiology consultation regarding shortness of breath. He is followed by Dr. Collins in our office. Problems mention in his note include poorly controlled hypertension on multiple medications and sinus tachycardia. Currently, admission is for complaints of shortness of breath. It seems that he was just in the hospital for abdominal pain/elevated LFTs. Shortness of breath has been ongoing for the last few days. He feels the symptoms even any form of exertion. No clear anginal-type symptoms pain. No documented coronary disease or cardiomyopathy. Review of Systems Review of Systems: Yes all other systems are reviewed and are negative Constitutional: Constitutional: Reports as per HPI and Reports no additional constitutional complaints Eyes: Eyes: Reports as per HPI and Denies no additional eye complaints ENT: Denies system reviewed and no additional complaints, except as documented and Reports as per HPI Cardiovascular: Cardiovascular: Reports as per HPI, Reports no additional cardiovascular complaints, Denies acrocyanosis, Denies cool extremities, Denies chest pain, Denies leg edema, Denies lightheadedness, Denies palpitations and Reports dyspnea Respiratory: Respiratory: Reports as per HPI, Denies no additional respiratory complaints and Reports dyspnea Gastrointestinal: Gastrointestinal: Reports as per HPI and Denies no additional gastrointestinal complaints Genitourinary: Genitourinary: Reports no additional male genitourinary complaints and Reports as per HPI Musculoskeletal: Musculoskeletal: Reports no additional musculoskeletal complaints and Reports as per HPI Integumentary/Breasts: Skin/Breast: Reports system reviewed and no additional complaints, except as docu Neurologic: Reports system reviewed and no additional complaints, except as documented and Reports as per HPI Psychiatric: Psychiatric: Reports no additional psychiatric complaints and Reports as per HPI Endocrine: Endocrine: Reports no additional endocrine complaints, Reports as per HPI and Denies palpitations Hematologic/Lymphatic: Hematologic/Lymphatic: Reports no additional hematologic/lymphatic complaints and Reports as per HPI Allergic/Immunologic: Allergic/Immunologic: Reports no additional allergic/immunologic complaints and Reports as per HPI PMF Past Medical History Medical History Anxiety Chronic hyperglycemia CKD (chronic kidney disease) stage 3, GFR 30-59 ml/min Depression Diabetes Diabetes type 2, uncontrolled Diabetic nephropathy associated with type 2 diabetes mellitus Diabetic neuropathy associated with type 2 diabetes mellitus Dyslipidemia Essential hypertension GERD (gastroesophageal reflux disease) High cholesterol Hypercalcemia Hyperlipidemia 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 Surgical History Surgical History H/O colonoscopy History of esophagogastroduodenoscopy (EGD) Hx of arthroscopy of knee Hx of arthroscopy of right knee Social History Social History Household Members: Family Household Members Other:: SISTER Housing: Apartment Do you presently have visiting nurse or other home services: Yes Alcohol intake: never Patient Tobacco Use Status: Never used Tobacco e-Cigarette/Vaping Use: Never Used Second Hand Smoke Exposure: Yes (HISTORY OF SECOND HAND SMOKE EXPOSURE) Advance Directives: Yes Advance Directives on File: Yes Advance Directives Date on File: 05/05/20 service: No Current occupational status: disabled Current occupation: right handed Cognitive needs: No Hearing needs: No Vision needs: No Meds Allergies Allergy/AdvReac Type Severity Reaction Status Date / Time cephalexin [From KEFLEX] Allergy Mild ITCHY Verified 05/23/22 16:16 THROAT lisinopril [LISINOPRIL] Allergy Unknown SWELLING Verified 05/23/22 16:16 COUGH Active Medications: Current Medications Acetaminophen (Acetaminophen 325 Mg Tablet) 650 mg PO Q6H PRN PRN Reason: Pain, Mild (Pain Scale 1-3) Bupropion HCl (Bupropion Hcl Xl 150 Mg Tab.Er.24h) 150 mg PO DAILY [facility] Clonazepam (Clonazepam 0.5 Mg Tablet) 0.5 mg PO TID PRN PRN Reason: anxiety Dextrose (Dextrose 50 % 25 Gm/50 Ml Syringe) 25 gm IVPUSH Q15M PRN; Protocol PRN Reason: per Hypoglycemia Standing Ord. Docusate Sodium (Docusate Sodium 100 Mg Capsule) 100 mg PO DAILY PRN PRN Reason: Constipation Famotidine (Famotidine 20 Mg Tablet) 20 mg PO BID [facility] Furosemide (Furosemide 40 Mg/4 Ml Vial) 40 mg IVPUSH DAILY [facility]; Protocol Last Admin: 05/24/22 08:03 Dose: 40 mg Gabapentin (Gabapentin 300 Mg Capsule) 300 mg PO BID [facility] Glucose (Glucose Gel 15 Gm Gel..Gram.) 15 gm PO Q15M PRN; Protocol PRN Reason: per Hypoglycemia Standing Ord. Heparin Sodium (Porcine) (Heparin Sodium,Porcine 5,000 Unit/Ml Vial) 5,000 unit SUBCUT Q12H [facility] Last Admin: 05/24/22 00:55 Dose: 5,000 unit Insulin Glargine (Insulin Glargine,Hum.Rec.Anlog 100 Unit/Ml 10 Ml Vial) 40 unit SUBCUT DAILY [facility] Insulin Human Lispro (Insulin Lispro 100 Unit/Ml 3 Ml Vial) 0 unit SUBCUT QIDACHS [facility]; Protocol Last Admin: 05/24/22 07:32 Dose: Not Given Labetalol HCl (Labetalol Hcl 200 Mg Tablet) 200 mg PO BID [facility]; Protocol Losartan Potassium (Losartan Potassium 50 Mg Tablet) 50 mg PO DAILY [facility]; Protocol Meclizine HCl (Meclizine Hcl 25 Mg Tablet) 25 mg PO Q6H PRN PRN Reason: Dizziness Metoclopramide HCl (Metoclopramide Hcl 5 Mg Tablet) 5 mg PO QID [facility] Multivitamins/Vitamin C (Multivitamin Tablet) 1 tab PO DAILY [facility] Nifedipine (Nifedipine Er 30 Mg Tab.Er.24) 60 mg PO DAILY [facility]; Protocol Non-Formulary Medication (Linagliptin [Tradjenta]) 5 mg PO DAILY [facility] Ondansetron HCl (Ondansetron Hcl 4 Mg/2 Ml Vial) 4 mg IVPUSH Q8H PRN PRN Reason: Nausea and Vomiting Pharmacy Consult (Consult Rx Perform Med Rec) 1 each MISCELLANE ONCE PRN PRN Reason: Consult order Simethicone (Simethicone 80 Mg Tab.Chew) 160 mg PO TID [facility] Sodium Chloride (0.9 % Sodium Chloride Flush 3 Ml Syringe) 3 ml IVFLUSH QSHIFT [facility] Last Admin: 05/24/22 08:03 Dose: 3 ml Trazodone HCl (Trazodone Hcl 50 Mg Tablet) 150 mg PO BEDTIME PRN PRN Reason: Sleep Venlafaxine HCl (Venlafaxine Hcl Er 150 Mg Cap.Er.24h) 150 mg PO DAILY [facility] Vitamin D (Cholecalciferol (Vitamin D3) 25 Mcg Tablet) 50 mcg PO DAILY [facility] Home Medications Medication Instructions Recorded Confirmed Last Taken Type venlafaxine 150 mg 150 mg PO DAILY 10/30/21 05/24/22 05/24/22 History capsule,extended release 24 hr multivitamin with folic acid 400 1 tab PO DAILY 03/06/22 05/24/22 05/24/22 History mcg tablet (Tab-A-George) pen needle, diabetic 32 gauge x #50 ea 03/06/22 04/16/22 Unknown History 06/14 (Ultracare Pen Needle) bupropion HCl 150 mg 24 hr tablet, 150 mg PO DAILY 05/16/22 05/24/22 05/24/22 History extended release insulin aspart U-100 100 unit/mL 14 unit subcut TIDAC 05/16/22 05/24/22 05/24/22 History (3 mL) subcutaneous pen (Novolog FlexPen U-100 Insulin aspart) insulin glargine U-300 conc 300 70 unit subcut DAILY 05/16/22 05/24/22 05/24/22 History unit/mL (3 mL) subcutaneous pen (Toujeo Max U-300 SoloStar) meclizine 25 mg tablet 25 mg PO Q6H PRN Dizziness 05/16/22 05/24/22 05/24/22 History trazodone 150 mg tablet 150 mg PO BEDTIME PRN Sleep 05/16/22 05/24/22 05/24/22 History Physical Exam Vital Signs: Vital Signs: Last Vital Signs Temp 98 F 05/24/22 01:00 Pulse 92 05/24/22 09:37 Resp 18 05/24/22 09:37 BP 162/72 H 05/24/22 09:37 Pulse Ox 96 05/24/22 09:37 O2 Del Method 05/24/22 09:37 BMI result Body Mass Index 34.0 Const: General: comfortable and no acute distress Orientation/consciousness: patient oriented x3 HEENT: Other: Unremarkable Head: Yes normal to inspection Neck: Neck: Yes normal visual inspection Chest: Chest palpation & inspection: normal inspection of the chest Resp: Auscultation: clear to auscultation bilaterally Cardio: Palpation: normal PMI Heart sounds: S1 normal heart sound present, S2 normal heart sound present, no gallops, no murmurs and no rubs GI: Palpation (GI): Soft to palpation Back/Spine/Pelvis: Other: unremarkable Skin: General skin exam: no rashes or lesions noted Neuro: General: patient oriented x3 Extrem: General: Yes normal to inspection Psych: Mental Status: mental status grossly normal Objective Labs and Meds 05/24/22 06:58 05/24/22 06:58 Lab results: Laboratory Results - last 24 hr 05/23/22 05/23/22 05/23/22 15:47 15:47 15:47 WBC 9.9 RBC 2.99 L Hgb 9.0 L Hct 26.3 L MCV 88.0 MCH 30.1 MCHC 34.2 RDW 12.8 Plt Count 319 MPV 9.7 Immature Gran % (Auto) 0.6 H Neut % (Auto) 76.5 H Lymph % (Auto) 10.7 L Lucas % (Auto) 9.6 Eos % (Auto) 1.7 Baso % (Auto) 0.9 Lymph # (Auto) 1.1 L [place] # (Auto) 1.0 Eos # (Auto) 0.2 Baso # (Auto) 0.1 Abs Immat Gran (auto) 0.06 H Absolute Neuts (auto) 7.6 Absolute Nucleated RBC 0.000 Nucleated RBC % (auto) 0.0 Sodium 134 L Potassium 4.7 Chloride 103 Carbon Dioxide 22 Anion Gap 14 BUN 58 H Creatinine 3.06 H Estim Creat Clear Calc 32.0 Estimated GFR 21 POC Glucose Random Glucose 78 Calcium 8.9 Magnesium 1.8 Total Bilirubin 1.3 H Direct Bilirubin 0.7 H AST 38 H ALT 98 H Alkaline Phosphatase 413 H Troponin I High Sens B-Natriuretic Peptide Total Protein 6.7 Albumin 3.7 Urine Color Urine Appearance Urine pH Ur Specific [place] Urine Protein Urine Glucose (UA) Urine Ketones Urine Blood Urine Nitrite Ur Leukocyte Esterase Urine RBC Urine WBC Ur Squamous Epith Cells Urine Bacteria Hyaline Casts COVID-19 ([facility]) Negative COVID-19 Clin Com See Note 05/23/22 05/23/22 05/24/22 15:47 21:04 01:30 WBC RBC Hgb Hct MCV MCH MCHC RDW Plt Count MPV Immature Gran % (Auto) Neut % (Auto) Lymph % (Auto) Lucas % (Auto) Eos % (Auto) Baso % (Auto) Lymph # (Auto) Lucas # (Auto) Eos # (Auto) Baso # (Auto) Abs Immat Gran (auto) Absolute Neuts (auto) Absolute Nucleated RBC Nucleated RBC % (auto) Sodium Potassium Chloride Carbon Dioxide Anion Gap BUN Creatinine Estim Creat Clear Calc Estimated GFR POC Glucose Random Glucose Calcium Magnesium Total Bilirubin Direct Bilirubin AST ALT Alkaline Phosphatase Troponin I High Sens 9.2 B-Natriuretic Peptide 441 H Total Protein Albumin Urine Color Yellow Urine Appearance Hazy Urine pH 6.5 Ur Specific [place] 1.020 Urine Protein Negative Urine Glucose (UA) Negative Urine Ketones Negative Urine Blood Trace Urine Nitrite Negative Ur Leukocyte Esterase Small (1+) H Urine RBC 0-2 Urine WBC 0-5 Ur Squamous Epith Cells 0-2 Urine Bacteria None Seen Hyaline Casts 0-2 COVID-19 ([facility]) COVID-19 Clin Com 05/24/22 05/24/22 05/24/22 06:58 06:58 07:24 WBC 9.4 RBC 3.49 L Hgb 10.1 L Hct 30.3 L MCV 86.8 MCH 28.9 MCHC 33.3 RDW 12.4 Plt Count 373 MPV 9.6 Immature Gran % (Auto) 0.7 H Neut % (Auto) 77.7 H Lymph % (Auto) 11.8 L Lucas % (Auto) 7.7 Eos % (Auto) 1.0 Baso % (Auto) 1.1 Lymph # (Auto) 1.1 L Lucas # (Auto) 0.7 Eos # (Auto) 0.1 Baso # (Auto) 0.1 Abs Immat Gran (auto) 0.07 H Absolute Neuts (auto) 7.3 Absolute Nucleated RBC 0.000 Nucleated RBC % (auto) 0.0 Sodium 137 Potassium 4.1 Chloride 101 Carbon Dioxide 22 Anion Gap 18 BUN 54 H Creatinine 2.77 H Estim Creat Clear Calc 35.4 Estimated GFR 24 POC Glucose 122 H Random Glucose 117 H Calcium 9.3 Magnesium Total Bilirubin 1.5 H Direct Bilirubin AST 33 ALT 95 H Alkaline Phosphatase 446 H Troponin I High Sens B-Natriuretic Peptide Total Protein 7.1 Albumin 3.9 Urine Color Urine Appearance Urine pH Ur Specific [place] Urine Protein Urine Glucose (UA) Urine Ketones Urine Blood Urine Nitrite Ur Leukocyte Esterase Urine RBC Urine WBC Ur Squamous Epith Cells Urine Bacteria Hyaline Casts COVID-19 ([facility]) COVID-19 Clin Com ECG Interpretation: EKG with sinus rhythm at 78/Min; nonspecific T-wave changes; normal RI and corrected QT. Imaging Radiologist's impression: Impressions Chest X-Ray 05/23/22 15:52 IMPRESSION: Diffuse interstitial prominence with Janis B-lines suggestive of interstitial edema. Assessment and Plan (1) Acute diastolic (congestive) heart failure: Status: Acute (2) Hypertensive emergency: Status: Acute Plan Blood pressures are running quite high. A recent blood pressure from this morning as much as 210/94 mm Hg. Several other blood pressures are also quite high. It seems this has been a chronic issue. With regard to labs, BUN is 54 and creatinine is 2.7 which is also chronic. Chronic LFT abnormalities. High sensitivity troponins 9.2. BNP is 441. Last echocardiogram with LVEF 57%. Possible mild basal inferior hypokinesis. Diminished global longitudinal strain. Overall, probable acute diastolic failure related to uncontrolled hypertension. Currently on a combination of nifedipine, labetalol, losartan. Probably further uptitrate labetalol/nifedipine dosing. Also IV diuretics. Get Nephrology input as he does have significant renal dysfunction as well. Will follow up with you. Echocardiogram getting repeated. Time Spent With Patient Time: Total time managing care of this patient today 77 minutes. Procedures Date of Service Date of Service: 05/24/22
--- NOTE | 2022-05-24 10:31 | PC.NURSE ---
Bedside echo being performed
[2022-05-24] MEDS: Multivitamin TABLET 1 TAB PO (10:41)
[2022-05-24] MEDS: Losartan Potassium 50 MG TABLET PO (10:41)
[2022-05-24] MEDS: Venlafaxine HCl ER 150 MG CAP.ER.24H PO (10:41)
[2022-05-24] MEDS: Gabapentin 300 MG CAPSULE PO ×2 (10:41→19:20)
[2022-05-24] MEDS: buPROPion HCl XL 150 MG TAB.ER.24H PO (10:41)
[2022-05-24] MEDS: Labetalol HCL 200 MG TABLET PO ×2 (10:41→19:20)
[2022-05-24] MEDS: Cholecalciferol (Vitamin D3) 25 MCG TABLET 50 MCG PO (10:41)
[2022-05-24] MEDS: Insulin Glargine,Hum.rec.anlog 100 UNIT/ML 10 ML VIAL 40 UNIT SUBCUT (10:42)
--- NOTE | 2022-05-24 10:51 | MHC.CM.PN ---
Addendum entered by Amanda Felix 05/24/22 10:59: PT REPORTS HE LIVES WITH HIS SISTER AND IS INDEPENDENT WITH SELF CARE HE REPORTS HE IS ACTIVE WITH [facility] FOR DAILY MED ADMINISTRATION HE USES A CANE TO AMBULATE HE IS COVID VAX + HCP ON FILE (DAUGHTER) PCP: DHIRAJ ALVAREZ IMM DELIVERED, COIPY SENT TO [facility] CURRENT DC PLAN IS HOME WITH RESUMPTION OF [facility] DAUGHTER TO TRANSPORT Original Note: CM ATTEMPTED TO SEE PT WHO IS WITH BEDSIDE IMAGING CM TO RETURN
[2022-05-24] MEDS: NIFEdipine ER 30 MG TAB.ER.24 60 MG PO (11:05)
[2022-05-24 11:37] LABS: Glucose, Whole Blood 149 mg/dL (60-115)
[2022-05-24] MEDS: Metoclopramide HCl 5 MG TABLET PO ×3 (14:28→21:12)
[2022-05-24] MEDS: Simethicone 80 MG TAB.CHEW 160 MG PO ×2 (14:28→21:12)
--- NOTE | 2022-05-24 17:29 | PC.NURSE ---
Report to Onelia ROBLES
--- NOTE | 2022-05-24 17:44 | HO.PM.IMPN ---
Subjective Subjective Date of Service: 05/24/22 Interval History: shortness of breath Review of Systems still sob denies any chest pain or nausea or vomitin Physical Exam Vital Signs: Vital Signs: Last Vital Signs Temp 98 F 05/24/22 01:00 Pulse 68 05/24/22 17:10 Resp 18 05/24/22 17:10 BP 157/78 H 05/24/22 17:10 Pulse Ox 94 05/24/22 17:10 O2 Del Method 05/24/22 17:10 BMI result Body Mass Index 34.0 Appearance: Alert.? Oriented X3.sob with exersion? . cvs: rrr, [id number] . res: clear to auscultation ,no rhonchii or wheezing abd: no rebound or guarding ,nt, bs present. ext pulses present , no cyanosis. neuro: axo3 , nonfocal. Objective Data Active Medications Acetaminophen (Acetaminophen 325 Mg Tablet) 650 mg PO Q6H PRN PRN Reason: Pain, Mild (Pain Scale 1-3) Bupropion HCl (Bupropion Hcl Xl 150 Mg Tab.Er.24h) 150 mg PO DAILY [facility] Last Admin: 05/24/22 10:41 Dose: 150 mg Documented By: GERONIMO Clonazepam (Clonazepam 0.5 Mg Tablet) 0.5 mg PO TID PRN PRN Reason: anxiety Dextrose (Dextrose 50 % 25 Gm/50 Ml Syringe) 25 gm IVPUSH Q15M PRN; Protocol PRN Reason: per Hypoglycemia Standing Ord. Docusate Sodium (Docusate Sodium 100 Mg Capsule) 100 mg PO DAILY PRN PRN Reason: Constipation Famotidine (Famotidine 20 Mg Tablet) 20 mg PO BID [facility] Furosemide (Furosemide 40 Mg/4 Ml Vial) 40 mg IVPUSH DAILY [facility]; Protocol Last Admin: 05/24/22 08:03 Dose: 40 mg Documented By: GERONIMO Gabapentin (Gabapentin 300 Mg Capsule) 300 mg PO BID [facility] Last Admin: 05/24/22 10:41 Dose: 300 mg Documented By: GERONIMO Glucose (Glucose Gel 15 Gm Gel..Gram.) 15 gm PO Q15M PRN; Protocol PRN Reason: per Hypoglycemia Standing Ord. Heparin Sodium (Porcine) (Heparin Sodium,Porcine 5,000 Unit/Ml Vial) 5,000 unit SUBCUT Q12H [facility] Last Admin: 05/24/22 14:28 Dose: 5,000 unit Documented By: GERONIMO Insulin Glargine (Insulin Glargine,Hum.Rec.Anlog 100 Unit/Ml 10 Ml Vial) 40 unit SUBCUT DAILY [facility] Last Admin: 05/24/22 10:42 Dose: 40 unit Documented By: GERONIMO Insulin Human Lispro (Insulin Lispro 100 Unit/Ml 3 Ml Vial) 0 unit SUBCUT QIDACHS [facility]; Protocol Last Admin: 05/24/22 11:58 Dose: Not Given Documented By: GERONIMO Non-Admin Reason: bs Labetalol HCl (Labetalol Hcl 200 Mg Tablet) 200 mg PO BID [facility]; Protocol Last Admin: 05/24/22 10:41 Dose: 200 mg Documented By: GERONIMO Losartan Potassium (Losartan Potassium 50 Mg Tablet) 50 mg PO DAILY [facility]; Protocol Last Admin: 05/24/22 10:41 Dose: 50 mg Documented By: GERONIMO Meclizine HCl (Meclizine Hcl 25 Mg Tablet) 25 mg PO Q6H PRN PRN Reason: Dizziness Metoclopramide HCl (Metoclopramide Hcl 5 Mg Tablet) 5 mg PO QID [facility] Last Admin: 05/24/22 16:19 Dose: 5 mg Documented By: GERONIMO Multivitamins/Vitamin C (Multivitamin Tablet) 1 tab PO DAILY [facility] Last Admin: 05/24/22 10:41 Dose: 1 tab Documented By: GERONIMO Nifedipine (Nifedipine Er 30 Mg Tab.Er.24) 60 mg PO DAILY [facility]; Protocol Last Admin: 05/24/22 11:05 Dose: 60 mg Documented By: GERONIMO Non-Formulary Medication (Linagliptin [Tradjenta]) 5 mg PO DAILY [facility] Ondansetron HCl (Ondansetron Hcl 4 Mg/2 Ml Vial) 4 mg IVPUSH Q8H PRN PRN Reason: Nausea and Vomiting Pharmacy Consult (Consult Rx Perform Med Rec) 1 each MISCELLANE ONCE PRN PRN Reason: Consult order Simethicone (Simethicone 80 Mg Tab.Chew) 160 mg PO TID [facility] Last Admin: 05/24/22 14:28 Dose: 160 mg Documented By: GERONIMO Sodium Chloride (0.9 % Sodium Chloride Flush 3 Ml Syringe) 3 ml IVFLUSH QSHIFT [facility] Last Admin: 05/24/22 17:12 Dose: Not Given Documented By: GERONIMO Non-Admin Reason: Administered by Alternate Route Trazodone HCl (Trazodone Hcl 50 Mg Tablet) 150 mg PO BEDTIME PRN PRN Reason: Sleep Venlafaxine HCl (Venlafaxine Hcl Er 150 Mg Cap.Er.24h) 150 mg PO DAILY [facility] Last Admin: 05/24/22 10:41 Dose: 150 mg Documented By: GERONIMO Vitamin D (Cholecalciferol (Vitamin D3) 25 Mcg Tablet) 50 mcg PO DAILY [facility] Last Admin: 05/24/22 10:41 Dose: 50 mcg Documented By: GERONIMO Labs 05/24/22 06:58 05/24/22 06:58 Labs: Laboratory Results - last 24 hr 05/23/22 05/24/22 05/24/22 21:04 01:30 06:58 MCV 86.8 MCH 28.9 MCHC 33.3 RDW 12.4 Plt Count 373 MPV 9.6 Immature Gran % (Auto) 0.7 H Neut % (Auto) 77.7 H Lymph % (Auto) 11.8 L [place] % (Auto) 7.7 Eos % (Auto) 1.0 Baso % (Auto) 1.1 Lymph # (Auto) 1.1 L [place] # (Auto) 0.7 Eos # (Auto) 0.1 Baso # (Auto) 0.1 Abs Immat Gran (auto) 0.07 H Absolute Neuts (auto) 7.3 Absolute Nucleated RBC 0.000 Nucleated RBC % (auto) 0.0 Anion Gap Estim Creat Clear Calc Estimated GFR POC Glucose Random Glucose Calcium Total Bilirubin AST ALT Alkaline Phosphatase Troponin I High Sens 9.2 Total Protein Albumin Urine Color Yellow Urine Appearance Hazy Urine pH 6.5 Ur Specific [place] 1.020 Urine Protein Negative Urine Glucose (UA) Negative Urine Ketones Negative Urine Blood Trace Urine Nitrite Negative Ur Leukocyte Esterase Small (1+) H Urine RBC 0-2 Urine WBC 0-5 Ur Squamous Epith Cells 0-2 Urine Bacteria None Seen Hyaline Casts 0-2 05/24/22 05/24/22 05/24/22 06:58 07:24 11:34 MCV MCH MCHC RDW Plt Count MPV Immature Gran % (Auto) Neut % (Auto) Lymph % (Auto) [place] % (Auto) Eos % (Auto) Baso % (Auto) Lymph # (Auto) [place] # (Auto) Eos # (Auto) Baso # (Auto) Abs Immat Gran (auto) Absolute Neuts (auto) Absolute Nucleated RBC Nucleated RBC % (auto) Anion Gap 18 Estim Creat Clear Calc 35.4 Estimated GFR 24 POC Glucose 122 H 149 H Random Glucose 117 H Calcium 9.3 Total Bilirubin 1.5 H AST 33 ALT 95 H Alkaline Phosphatase 446 H Troponin I High Sens Total Protein 7.1 Albumin 3.9 Urine Color Urine Appearance Urine pH Ur Specific [place] Urine Protein Urine Glucose (UA) Urine Ketones Urine Blood Urine Nitrite Ur Leukocyte Esterase Urine RBC Urine WBC Ur Squamous Epith Cells Urine Bacteria Hyaline Casts Assessment and Plan (1) Acute diastolic (congestive) heart failure: Status: Acute (2) Elevated LFTs: Status: Acute (3) CKD (chronic kidney disease): Status: Acute Plan ?56-year-old? with past medical history of hypertension, diabetes, hyperlipidemia, CKD stage 3, recently admitted for transaminitis returns to the hospital today with complaints of shortness of breath found to have acute CHF new onset congestive diastolic heart failure /? acute CHF exacerbation -? unknown etiology, has elevated BNP, imaging suggestive of CHF, dyspnea, fatigue sob seems somewhat improving -? patient received Lasix in the ED, will continue 40 mg of Lasix daily -? daily weight, strict I&O, low-sodium diet -? cardiology consulted -? echocardiogram transaminitis - ? patient had extensive workup on recent admission for the same, numbers appear to have improved since discharge and are trending down lfts improivn -? continue to follow CMP -? no abdominal pain today diabetes -? continue home insulin sign - will add low-dose sliding scale insulin, diabetic diet hypertension -? stable -? continue antihypertensives CKD stage 3 -? at baseline -? continue following BMP. obesity-? was diet, exercise, would recommend follow-up outpatient with PCP ?DVT prophylaxis:? Heparin subQ inpatient need: new onset CHF and exacerbation requiring IV Lasix patient, monitor on tele renal function and electrolytes. Time Spent With Patient Time: Total time managing care of this patient today ____ minutes. Quality Stroke Does the patient have a stroke diagnosis?: No VTE Prior VTE?: No VTE Risk Level:: Medical - moderate - high VTE Device Contraindication: Treatment Not Indicated VTE Drug Contraindication: N/A - Med Ordered
[2022-05-24 18:10] LABS: Glucose, Whole Blood 163 mg/dL (60-115)
[2022-05-24] MEDS: clonazePAM 0.5 MG TABLET PO (19:19)
[2022-05-24] MEDS: traZODone HCL 50 MG TABLET 150 MG PO (19:19)
[2022-05-24] MEDS: Famotidine 20 MG TABLET PO (19:20)
[2022-05-24 20:15] LABS: Glucose, Whole Blood 185 mg/dL (60-115)
[2022-05-24] MEDS: Insulin Lispro 100 UNIT/ML 3 ML VIAL SUBCUT (21:13)
[2022-05-25] VITALS (8 sets, daily range): BP systolic 135–173; BP diastolic 65–81; PULSE 56–87; RESP 18–20; TEMP 36.4–37.1; O2SAT 92–95; BMI 33.3
[2022-05-25] MEDS: Heparin Sodium,Porcine 5,000 UNIT/ML VIAL 5000 UNIT SUBCUT ×2 (03:10→11:50)
[2022-05-25 07:32] LABS: Glucose, Whole Blood 75 mg/dL (60-115)
[2022-05-25 07:56] LABS: Anion Gap 14 (12-20); Blood Urea Nitrogen 54 mg/dL (9-16); Calcium 9.3 mg/dL (8.4-10.2); Carbon Dioxide 23 mmol/L (22-29); Chloride 106 mmol/L (96-108); Creatinine Clr Calc Pharmacy 36.9; Estimated Glomerular Filt Rate 25; Glucose Random 70 mg/dL (60-115); Potassium 4.4 mmol/L (3.3-5.1); Sodium 139 mmol/L (135-145)
[2022-05-25 08:10] LABS: B Type Natriuretic Peptide < 10 pg/mL (<100)
[2022-05-25] MEDS: Simethicone 80 MG TAB.CHEW 160 MG PO ×2 (09:06→13:58)
[2022-05-25] MEDS: Insulin Glargine,Hum.rec.anlog 100 UNIT/ML 10 ML VIAL 40 UNIT SUBCUT (09:06)
[2022-05-25] MEDS: Furosemide 40 MG/4 ML VIAL IVPUSH (09:06)
[2022-05-25] MEDS: Metoclopramide HCl 5 MG TABLET PO ×3 (09:07→16:11)
[2022-05-25] MEDS: Multivitamin TABLET 1 TAB PO (09:07)
[2022-05-25] MEDS: buPROPion HCl XL 150 MG TAB.ER.24H PO (09:07)
[2022-05-25] MEDS: Gabapentin 300 MG CAPSULE PO ×2 (09:07→20:15)
[2022-05-25] MEDS: Losartan Potassium 50 MG TABLET PO (09:07)
[2022-05-25] MEDS: NIFEdipine ER 30 MG TAB.ER.24 60 MG PO (09:07)
[2022-05-25] MEDS: Venlafaxine HCl ER 150 MG CAP.ER.24H PO (09:07)
[2022-05-25] MEDS: Cholecalciferol (Vitamin D3) 25 MCG TABLET 50 MCG PO (09:07)
[2022-05-25] MEDS: Famotidine 20 MG TABLET PO ×2 (09:08→20:15)
[2022-05-25] MEDS: Labetalol HCL 200 MG TABLET PO (09:08)
[2022-05-25] MEDS: 0.9 % Sodium Chloride Flush 3 ML SYRINGE IVFLUSH ×2 (09:08→16:07)
[2022-05-25 11:22] LABS: Glucose, Whole Blood 171 mg/dL (60-115)
[2022-05-25] MEDS: Insulin Lispro 100 UNIT/ML 3 ML VIAL SUBCUT (11:50)
[2022-05-25] MEDS: Acetaminophen 325 MG TABLET 650 MG PO (11:52)
--- NOTE | 2022-05-25 13:02 | P.CDIC_ITS ---
CDI Concurrent Query Documentation Clarification: PHYSICIAN'S DOCUMENTATION REQUEST Date of Query: 05/25/22 1302 Patient Name: Larry Dias Admit Date: 05/23/22 Dear Doctor, A review of the medical record indicates additional documentation may be needed. Please review below and update the documentation accordingly. Clinical Indicators: Is there a diagnosis that correlates with the findings below: Risk Factors/Clinical Indicators/Treatments POA/TREAT/RESOLVED/RULE OUT Per cardiology consult 05/24: Blood pressures are running quite high. A recent blood pressure from this morning as much as 210/94 mm Hg.? Several other blood press ures are also quite high.? It seems this has been a chronic issue. Probable acute diastolic failure related to uncontrolled hypertension.? Currently on a combination of nifedipine, labetalol, losartan.? Probably further uptitrate labetalol/nifedipine. Per provider progress note 05/24: hypertension -? stable -? continue antihypertensives Vitals: BP 05/24: 210/92 210/94 Administered medications: Additional doses of Labetalol & Nifedipine Clarify which, if any of the following, is a more accurate diagnosis reflecting the type and acuity of the documented hypertension: * Hypertensive emergency is/was present and is a clinical diagnosis * After study hypertensive emergency has been ruled out * Other ? please specify * Unable to determine Use of terms such as suspected, likely, concern for, or probable (associated with a specific diagnosis that is being evaluated, monitored, or treated as if it exists) are acceptable and can be coded in the inpatient setting, when documented at the time of discharge. Thank you, Shanique Flynn MS, RN, CCRN Extension: [phone] Please use your independent medical judgment in providing your response. THIS QUERY IS PART OF THE PERMANENT MEDICAL RECORD Provider Response: Other Other Diagnosis: no htn emergency- only uncontrolled htn
--- NOTE | 2022-05-25 13:48 | P.PNIM_ITS ---
Subjective Subjective Date of Service: 05/25/22 Interval History: chf ,uncontrolled htn Review of Systems Still has exertional dyspnea, has headaches. Denies any chest pain or abdominal pain nausea or vomiting Physical Exam Vital Signs: Vital Signs: Last Vital Signs Temp 98.7 F 05/25/22 12:00 Pulse 73 05/25/22 12:00 Resp 18 05/25/22 12:00 BP 161/71 H 05/25/22 12:00 Pulse Ox 95 05/25/22 12:00 O2 Del Method 05/25/22 12:00 BMI result Body Mass Index 33.3 ?Appearance: Alert.? Oriented X3.sob with exersion? . cvs: rrr, [id number] . res: clear to auscultation ,no rhonchii or wheezing abd: no rebound or guarding ,nt, bs present. ext pulses present , no cyanosis. neuro: axo3 , nonfocal. Objective Data Active Medications Acetaminophen (Acetaminophen 325 Mg Tablet) 650 mg PO Q6H PRN PRN Reason: Pain, Mild (Pain Scale 1-3) Last Admin: 05/25/22 11:52 Dose: 650 mg Documented By: ARPAN Bupropion HCl (Bupropion Hcl Xl 150 Mg Tab.Er.24h) 150 mg PO DAILY [facility] Last Admin: 05/25/22 09:07 Dose: 150 mg Documented By: ARPAN Clonazepam (Clonazepam 0.5 Mg Tablet) 0.5 mg PO TID PRN PRN Reason: anxiety Last Admin: 05/24/22 19:19 Dose: 0.5 mg Documented By: ULYSSES Dextrose (Dextrose 50 % 25 Gm/50 Ml Syringe) 25 gm IVPUSH Q15M PRN; Protocol PRN Reason: per Hypoglycemia Standing Ord. Docusate Sodium (Docusate Sodium 100 Mg Capsule) 100 mg PO DAILY PRN PRN Reason: Constipation Famotidine (Famotidine 20 Mg Tablet) 20 mg PO BID [facility] Last Admin: 05/25/22 09:08 Dose: 20 mg Documented By: ARPAN Furosemide (Furosemide 40 Mg/4 Ml Vial) 40 mg IVPUSH DAILY [facility]; Protocol Last Admin: 05/25/22 09:06 Dose: 40 mg Documented By: ARPAN Gabapentin (Gabapentin 300 Mg Capsule) 300 mg PO BID [facility] Last Admin: 05/25/22 09:07 Dose: 300 mg Documented By: ARPAN Glucose (Glucose Gel 15 Gm Gel..Gram.) 15 gm PO Q15M PRN; Protocol PRN Reason: per Hypoglycemia Standing Ord. Heparin Sodium (Porcine) (Heparin Sodium,Porcine 5,000 Unit/Ml Vial) 5,000 unit SUBCUT Q12H [facility] Last Admin: 05/25/22 11:50 Dose: 5,000 unit Documented By: ARPAN Insulin Glargine (Insulin Glargine,Hum.Rec.Anlog 100 Unit/Ml 10 Ml Vial) 40 unit SUBCUT DAILY [facility] Last Admin: 05/25/22 09:06 Dose: 40 unit Documented By: ARPAN Insulin Human Lispro (Insulin Lispro 100 Unit/Ml 3 Ml Vial) 0 unit SUBCUT QIDACHS [facility]; Protocol Last Admin: 05/25/22 11:50 Dose: 2 unit Documented By: ARPAN Labetalol HCl (Labetalol Hcl 100 Mg Tablet) 300 mg PO BID [facility]; Protocol Losartan Potassium (Losartan Potassium 50 Mg Tablet) 50 mg PO DAILY [facility]; Protocol Last Admin: 05/25/22 09:07 Dose: 50 mg Documented By: ARPAN Meclizine HCl (Meclizine Hcl 25 Mg Tablet) 25 mg PO Q6H PRN PRN Reason: Dizziness Metoclopramide HCl (Metoclopramide Hcl 5 Mg Tablet) 5 mg PO QID [facility] Last Admin: 05/25/22 09:07 Dose: 5 mg Documented By: ARPAN Multivitamins/Vitamin C (Multivitamin Tablet) 1 tab PO DAILY [facility] Last Admin: 05/25/22 09:07 Dose: 1 tab Documented By: ARPAN Nifedipine (Nifedipine Er 30 Mg Tab.Er.24) 90 mg PO DAILY [facility]; Protocol Non-Formulary Medication (Linagliptin [Tradjenta]) 5 mg PO DAILY [facility] Ondansetron HCl (Ondansetron Hcl 4 Mg/2 Ml Vial) 4 mg IVPUSH Q8H PRN PRN Reason: Nausea and Vomiting Pharmacy Consult (Consult Rx Perform Med Rec) 1 each MISCELLANE ONCE PRN PRN Reason: Consult order Simethicone (Simethicone 80 Mg Tab.Chew) 160 mg PO TID [facility] Last Admin: 05/25/22 09:06 Dose: 160 mg Documented By: ARPAN Sodium Chloride (0.9 % Sodium Chloride Flush 3 Ml Syringe) 3 ml IVFLUSH QSHIFT [facility] Last Admin: 05/25/22 09:08 Dose: 3 ml Documented By: ARPAN Trazodone HCl (Trazodone Hcl 50 Mg Tablet) 150 mg PO BEDTIME PRN PRN Reason: Sleep Last Admin: 05/24/22 19:19 Dose: 150 mg Documented By: ULYSSES Venlafaxine HCl (Venlafaxine Hcl Er 150 Mg Cap.Er.24h) 150 mg PO DAILY [facility] Last Admin: 05/25/22 09:07 Dose: 150 mg Documented By: ARPAN Vitamin D (Cholecalciferol (Vitamin D3) 25 Mcg Tablet) 50 mcg PO DAILY [facility] Last Admin: 05/25/22 09:07 Dose: 50 mcg Documented By: ARPAN Labs 05/24/22 06:58 05/25/22 07:00 Labs: Laboratory Results - last 24 hr 05/24/22 05/24/22 05/25/22 18:05 20:11 07:00 Anion Gap 14 Estim Creat Clear Calc 36.9 Estimated GFR 25 POC Glucose 163 H 185 H Random Glucose 70 Calcium 9.3 B-Natriuretic Peptide 05/25/22 05/25/22 05/25/22 07:00 07:24 11:16 Anion Gap Estim Creat Clear Calc Estimated GFR POC Glucose 75 171 H Random Glucose Calcium B-Natriuretic Peptide < 10 Microbiology Microbiology Results: Microbiology 05/24/22 00:00 Urine Culture - Final Urine clean catch - Urine correia top Assessment and Plan (1) Acute diastolic (congestive) heart failure: Status: Acute (2) Elevated LFTs: Status: Acute (3) CKD (chronic kidney disease): Status: Acute Plan ?56-year-old? with past medical history of hypertension, diabetes, hyperlipidemia, CKD stage 3, recently admitted for transaminitis returns to the hospital today with complaints of shortness of breath found to have acute CHF new onset congestive diastolic heart failure /? acute CHF exacerbation -? unknown etiology, has elevated BNP, imaging suggestive of CHF, dyspnea, fatigue sob seems somewhat improving -? echocardiogram: Conclusions: - The left ventricular systolic function is normal.? The visually estimated ejection fraction is between 60-65%. ? - Possible mild basal inferior hypokinesis.? - No obvious valvular pathology seen on this study.? - There is a small loculated pericardial effusion overlying the? left atrium and right atrium.? continue 40 mg of Lasix daily,htn control-adjusted nifedpine/labetalol. -? daily weight(dry weight ?unclear) but bmi seems lower than admission, strict I&O( needs to be monitered), low-sodium diet -? cardiology consulted transaminitis - ? patient had extensive workup on recent admission for the same, numbers appear to have improved since discharge and are trending down lfts improivn -? no abdominal pain today diabetes -? continue home insulin - will add low-dose sliding scale insulin, diabetic diet hypertension uncontrolled adjusted nifedpine/labetalol. CKD stage 3 -? at baseline -? continue following BMP. obesity-? was diet, exercise, would recommend follow-up outpatient with PCP ?DVT prophylaxis:? Heparin subQ inpatient need: new onset CHF and exacerbation requiring IV Lasix patient, monitor on tele renal function and electrolytes. Time Spent With Patient Time: Total time managing care of this patient today ____ minutes. Quality Stroke Does the patient have a stroke diagnosis?: No VTE Prior VTE?: No VTE Risk Level:: Medical - moderate - high VTE Device Contraindication: Treatment Not Indicated VTE Drug Contraindication: N/A - Med Ordered
[2022-05-25] MEDS: Meclizine HCl 25 MG TABLET PO ×2 (13:52→20:20)
[2022-05-25 15:06] LABS: Glucose, Whole Blood 105 mg/dL (60-115)
--- NOTE | 2022-05-25 15:58 | P.CONNP_ITS ---
History of Present Illness Reason for Consult Consult date: 05/25/22 Reason for consult: CKD stage 4 Chief Complaint Chief complaint: SOB, from home per EMS (3) History of Present Illness Narrative: Larry is a 56 yo man followed by Dr. Stevenson fro CKD stage 4. He was admitted yesterday with SOB and finding on CXR of pulm edema. An echo was done on admission showing preserved EF. He has known CKD stage 4 with creat 2.6-3 at baseline. He was just discharged from [facility] [place] on 05/23 with a bout of cholecystitis and elevated LFTS. He denies pain in his abdomen or chest now. His admitting creat now is 2.7 down from his discharge creat of 3. He has proteinuria but a normal serum albumin. He is diabetic. Since admission, his breathing has improved after diuresis. Review of Systems Review of Systems SOB and orthopnea no abdominal pain dizziness with standing no chest pain no nausea no diff voiding no signif edema no abd pain no new neuro symptoms PMFSH Past Medical History Medical History Anxiety Chronic hyperglycemia CKD (chronic kidney disease) stage 3, GFR 30-59 ml/min Depression Diabetes Diabetes type 2, uncontrolled Diabetic nephropathy associated with type 2 diabetes mellitus Diabetic neuropathy associated with type 2 diabetes mellitus Dyslipidemia Essential hypertension GERD (gastroesophageal reflux disease) High cholesterol Hypercalcemia Hyperlipidemia 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 Surgical History Surgical History H/O colonoscopy History of esophagogastroduodenoscopy (EGD) Hx of arthroscopy of knee Hx of arthroscopy of right knee Social History Social History Household Members: Family Household Members Other:: SISTER Housing: Apartment Do you presently have visiting nurse or other home services: No Alcohol intake: never Patient Tobacco Use Status: Never used Tobacco e-Cigarette/Vaping Use: Never Used Second Hand Smoke Exposure: Yes (HISTORY OF SECOND HAND SMOKE EXPOSURE) Advance Directives Date on File: 05/05/20 service: No Current occupational status: disabled Current occupation: right handed Cognitive needs: No Hearing needs: No Vision needs: No Meds Allergies Allergy/AdvReac Type Severity Reaction Status Date / Time cephalexin [From KEFLEX] Allergy Mild ITCHY Verified 05/23/22 16:16 THROAT lisinopril [LISINOPRIL] Allergy Unknown SWELLING Verified 05/23/22 16:16 COUGH Active Medications: Current Medications Acetaminophen (Acetaminophen 325 Mg Tablet) 650 mg PO Q6H PRN PRN Reason: Pain, Mild (Pain Scale 1-3) Last Admin: 05/25/22 11:52 Dose: 650 mg Bupropion HCl (Bupropion Hcl Xl 150 Mg Tab.Er.24h) 150 mg PO DAILY [facility] Last Admin: 05/25/22 09:07 Dose: 150 mg Clonazepam (Clonazepam 0.5 Mg Tablet) 0.5 mg PO TID PRN PRN Reason: anxiety Last Admin: 05/24/22 19:19 Dose: 0.5 mg Dextrose (Dextrose 50 % 25 Gm/50 Ml Syringe) 25 gm IVPUSH Q15M PRN; Protocol PRN Reason: per Hypoglycemia Standing Ord. Docusate Sodium (Docusate Sodium 100 Mg Capsule) 100 mg PO DAILY PRN PRN Reason: Constipation Famotidine (Famotidine 20 Mg Tablet) 20 mg PO BID [facility] Last Admin: 05/25/22 09:08 Dose: 20 mg Furosemide (Furosemide 40 Mg/4 Ml Vial) 40 mg IVPUSH DAILY [facility]; Protocol Last Admin: 05/25/22 09:06 Dose: 40 mg Gabapentin (Gabapentin 300 Mg Capsule) 300 mg PO BID [facility] Last Admin: 05/25/22 09:07 Dose: 300 mg Glucose (Glucose Gel 15 Gm Gel..Gram.) 15 gm PO Q15M PRN; Protocol PRN Reason: per Hypoglycemia Standing Ord. Heparin Sodium (Porcine) (Heparin Sodium,Porcine 5,000 Unit/Ml Vial) 5,000 unit SUBCUT Q12H [facility] Last Admin: 05/25/22 11:50 Dose: 5,000 unit Insulin Glargine (Insulin Glargine,Hum.Rec.Anlog 100 Unit/Ml 10 Ml Vial) 40 unit SUBCUT DAILY [facility] Last Admin: 05/25/22 09:06 Dose: 40 unit Insulin Human Lispro (Insulin Lispro 100 Unit/Ml 3 Ml Vial) 0 unit SUBCUT QIDACHS [facility]; Protocol Last Admin: 05/25/22 11:50 Dose: 2 unit Labetalol HCl (Labetalol Hcl 100 Mg Tablet) 300 mg PO BID [facility]; Protocol Losartan Potassium (Losartan Potassium 50 Mg Tablet) 50 mg PO DAILY [facility]; Protocol Last Admin: 05/25/22 09:07 Dose: 50 mg Meclizine HCl (Meclizine Hcl 25 Mg Tablet) 25 mg PO Q6H PRN PRN Reason: Dizziness Last Admin: 05/25/22 13:52 Dose: 25 mg Metoclopramide HCl (Metoclopramide Hcl 5 Mg Tablet) 5 mg PO QID [facility] Last Admin: 05/25/22 13:52 Dose: 5 mg Multivitamins/Vitamin C (Multivitamin Tablet) 1 tab PO DAILY [facility] Last Admin: 05/25/22 09:07 Dose: 1 tab Nifedipine (Nifedipine Er 30 Mg Tab.Er.24) 90 mg PO DAILY [facility]; Protocol Non-Formulary Medication (Linagliptin [Tradjenta]) 5 mg PO DAILY [facility] Ondansetron HCl (Ondansetron Hcl 4 Mg/2 Ml Vial) 4 mg IVPUSH Q8H PRN PRN Reason: Nausea and Vomiting Pharmacy Consult (Consult Rx Perform Med Rec) 1 each MISCELLANE ONCE PRN PRN Reason: Consult order Simethicone (Simethicone 80 Mg Tab.Chew) 160 mg PO TID [facility] Last Admin: 05/25/22 13:58 Dose: 160 mg Sodium Chloride (0.9 % Sodium Chloride Flush 3 Ml Syringe) 3 ml IVFLUSH QSHIFT [facility] Last Admin: 05/25/22 09:08 Dose: 3 ml Trazodone HCl (Trazodone Hcl 50 Mg Tablet) 150 mg PO BEDTIME PRN PRN Reason: Sleep Last Admin: 05/24/22 19:19 Dose: 150 mg Venlafaxine HCl (Venlafaxine Hcl Er 150 Mg Cap.Er.24h) 150 mg PO DAILY [facility] Last Admin: 05/25/22 09:07 Dose: 150 mg Vitamin D (Cholecalciferol (Vitamin D3) 25 Mcg Tablet) 50 mcg PO DAILY [facility] Last Admin: 05/25/22 09:07 Dose: 50 mcg Home Medications Medication Instructions Recorded Confirmed Last Taken Type venlafaxine 150 mg 150 mg PO DAILY 10/30/21 05/24/22 05/24/22 History capsule,extended release 24 hr multivitamin with folic acid 400 1 tab PO DAILY 03/06/22 05/24/22 05/24/22 History mcg tablet (Tab-A-George) pen needle, diabetic 32 gauge x #50 ea 03/06/22 04/16/22 Unknown History 06/14 ([employer]tracare Pen Needle) bupropion HCl 150 mg 24 hr tablet, 150 mg PO DAILY 05/16/22 05/24/22 05/24/22 History extended release insulin aspart U-100 100 unit/mL 14 unit subcut TIDAC 05/16/22 05/24/22 05/24/22 History (3 mL) subcutaneous pen (Novolog FlexPen U-100 Insulin aspart) insulin glargine U-300 conc 300 70 unit subcut DAILY 05/16/22 05/24/22 05/24/22 History unit/mL (3 mL) subcutaneous pen (Toujeo Max U-300 SoloStar) meclizine 25 mg tablet 25 mg PO Q6H PRN Dizziness 05/16/22 05/24/22 05/24/22 History trazodone 150 mg tablet 150 mg PO BEDTIME PRN Sleep 05/16/22 05/24/22 05/24/22 History Physical Exam Vital Signs: Last Vital Signs Temp 98.1 F 05/25/22 14:46 Pulse 73 05/25/22 14:46 Resp 18 05/25/22 14:46 BP 165/75 H 05/25/22 14:46 Pulse Ox 95 05/25/22 14:46 O2 Del Method 05/25/22 14:46 BMI result Body Mass Index 33.3 Const General: cooperative, comfortable and no acute distress Orientation/consciousness: patient oriented x3 HEENT Other: Unremarkable Head: Yes normal to inspection Eyes General: appearance normal, both eyes and all related structures Neck Neck: Yes normal visual inspection Chest Chest palpation & inspection: normal inspection of the chest Resp Other: Crackles bilaterally Effort & Inspection: normal respiratory effort Auscultation: clear to auscultation bilaterally Cardio Palpation: normal PMI Rate: regular rate Rhythm: regular rhythm Heart sounds: S1 normal heart sound present, S2 normal heart sound present, no gallops, no murmurs and no rubs GI Palpation (GI): Soft to palpation Auscultation: normal bowel sounds Back/Spine/Pelvis Other: unremarkable Skin General skin exam: no rashes or lesions noted Neuro General: patient oriented x3 Cognition (Neuro): normal cognition Extrem General: Yes normal to inspection and Yes no pedal edema Psych Mental Status: mental status grossly normal Results Lab Results 05/24/22 06:58 05/25/22 07:00 Lab results: Chemistry 05/23/22 05/24/22 05/25/22 15:47 06:58 07:00 Sodium 134 L 137 139 Potassium 4.7 4.1 4.4 Carbon Dioxide BUN 58 H 54 H 54 H Creatinine 3.06 H 2.77 H 2.63 H Calcium 8.9 9.3 9.3 Hematology 05/23/22 05/24/22 15:47 06:58 WBC 9.9 9.4 Hgb 9.0 L 10.1 L Plt Count 319 373 Urinalysis 05/24/22 01:30 Urine Color Yellow Urine Appearance Hazy Urine pH 6.5 Ur Specific Success 1.020 Urine Protein Negative Urine Glucose (UA) Negative Urine Ketones Negative Urine Blood Trace Urine Nitrite Negative Ur Leukocyte Esterase Small (1+) H Urine RBC 0-2 Urine WBC 0-5 Ur Squamous Epith Cells 0-2 Hyaline Casts 0-2 Assessment and Plan (1) Diabetic nephropathy associated with type 2 diabetes mellitus: Status: Acute (2) CKD (chronic kidney disease) stage 4, GFR 15-29 ml/min: Status: Acute (3) Acute diastolic (congestive) heart failure: Status: Acute (4) Diabetes mellitus with coincident hypertension: Status: Acute (5) Diabetic neuropathy associated with type 2 diabetes mellitus: Qualifiers: Diabetes mellitus complication detail: diabetic polyneuropathy Qualified Code(s): E11.42 - Type 2 diabetes mellitus with diabetic polyneuropathy Status: Acute Plan Pt presented with CHF in the setting of advanced CKD and preserved EF by echo. Suspect he was vol overloaded and with poor BP control developed diastolic dysfunction. Patient should be on ARB for DKD and CKD and agree with diuretic therapy. He appears closer to euvolemic now Recommend: Add losartan 50 mg daily Oral torsemide 40 mg am and 20 in pm Monitor K and creat Check orthostatic signs as he noted dizziness with standing Time Spent With Patient Time: Total time managing care of this patient today ____ minutes. Procedures Date of Service Date of Service: 05/25/22
[2022-05-25 18:57] LABS: Glucose, Whole Blood 155 mg/dL (60-115)
[2022-05-25] MEDS: Labetalol HCL 100 MG TABLET 300 MG PO (20:15)
[2022-05-25] MEDS: traZODone HCL 50 MG TABLET 150 MG PO (20:21)
[2022-05-25] MEDS: clonazePAM 0.5 MG TABLET PO (20:21)
[2022-05-26] VITALS (10 sets, daily range): BP systolic 125–186; BP diastolic 70–93; PULSE 71–80; RESP 18–20; TEMP 36.2–37.2; O2SAT 93–99
[2022-05-26] MEDS: 0.9 % Sodium Chloride Flush 3 ML SYRINGE IVFLUSH ×4 (00:56→23:00)
[2022-05-26] MEDS: Heparin Sodium,Porcine 5,000 UNIT/ML VIAL 5000 UNIT SUBCUT ×3 (00:56→23:05)
[2022-05-26 01:08] LABS: Glucose, Whole Blood 125 mg/dL (60-115)
[2022-05-26] MEDS: hydrALAZINE HCl 20 MG/ML VIAL 5 MG IVPUSH (05:29)
[2022-05-26 06:35] LABS: Anion Gap 14 (12-20); Blood Urea Nitrogen 55 mg/dL (9-16); Calcium 9.1 mg/dL (8.4-10.2); Carbon Dioxide 24 mmol/L (22-29); Chloride 104 mmol/L (96-108); Creatinine Clr Calc Pharmacy 34.8; Estimated Glomerular Filt Rate 24; Glucose Random 92 mg/dL (60-115); Potassium 4.3 mmol/L (3.3-5.1); Sodium 138 mmol/L (135-145)
[2022-05-26 07:36] LABS: Glucose, Whole Blood 92 mg/dL (60-115)
[2022-05-26] MEDS: NIFEdipine ER 30 MG TAB.ER.24 90 MG PO (08:51)
[2022-05-26] MEDS: Labetalol HCL 100 MG TABLET 300 MG PO ×2 (08:51→22:58)
[2022-05-26] MEDS: Gabapentin 300 MG CAPSULE PO ×2 (08:52→22:59)
[2022-05-26] MEDS: Meclizine HCl 25 MG TABLET PO ×2 (08:52→16:32)
[2022-05-26] MEDS: Furosemide 40 MG/4 ML VIAL IVPUSH (08:52)
[2022-05-26] MEDS: Venlafaxine HCl ER 150 MG CAP.ER.24H PO (08:52)
[2022-05-26] MEDS: Losartan Potassium 50 MG TABLET PO (08:52)
[2022-05-26] MEDS: buPROPion HCl XL 150 MG TAB.ER.24H PO (08:52)
[2022-05-26] MEDS: Cholecalciferol (Vitamin D3) 25 MCG TABLET 50 MCG PO (08:53)
[2022-05-26] MEDS: Famotidine 20 MG TABLET PO ×2 (08:53→22:59)
[2022-05-26] MEDS: Multivitamin TABLET 1 TAB PO (08:54)
[2022-05-26 11:27] LABS: Glucose, Whole Blood 147 mg/dL (60-115)
--- NOTE | 2022-05-26 11:29 | HO.PM.IMPN ---
Subjective Subjective Date of Service: 05/26/22 Interval History: chf ,uncontrolled htn Review of Systems sob improvin, no dizziness or headaches Denies any chest pain or abdominal pain nausea or vomiting Physical Exam Vital Signs: Vital Signs: Last Vital Signs Temp 97.6 F 05/26/22 10:56 Pulse 74 05/26/22 10:56 Resp 20 05/26/22 10:56 BP 153/83 H 05/26/22 10:56 Pulse Ox 96 05/26/22 10:56 O2 Del Method 05/26/22 10:56 BMI result Body Mass Index 33.3 Appearance: Alert.? Oriented X3.sob with exersion? . cvs: rrr, [id number] . res: clear to auscultation ,no rhonchii or wheezing abd: no rebound or guarding ,nt, bs present. ext pulses present , no cyanosis. neuro: axo3 , nonfocal. Objective Data Active Medications Acetaminophen (Acetaminophen 325 Mg Tablet) 650 mg PO Q6H PRN PRN Reason: Pain, Mild (Pain Scale 1-3) Last Admin: 05/25/22 11:52 Dose: 650 mg Documented By: ARPAN Bupropion HCl (Bupropion Hcl Xl 150 Mg Tab.Er.24h) 150 mg PO DAILY [facility] Last Admin: 05/26/22 08:52 Dose: 150 mg Documented By: FERCHO Clonazepam (Clonazepam 0.5 Mg Tablet) 0.5 mg PO TID PRN PRN Reason: anxiety Last Admin: 05/25/22 20:21 Dose: 0.5 mg Documented By: HECTOR Dextrose (Dextrose 50 % 25 Gm/50 Ml Syringe) 25 gm IVPUSH Q15M PRN; Protocol PRN Reason: per Hypoglycemia Standing Ord. Docusate Sodium (Docusate Sodium 100 Mg Capsule) 100 mg PO DAILY PRN PRN Reason: Constipation Famotidine (Famotidine 20 Mg Tablet) 20 mg PO BID [facility] Last Admin: 05/26/22 08:53 Dose: 20 mg Documented By: FERCHO Gabapentin (Gabapentin 300 Mg Capsule) 300 mg PO BID [facility] Last Admin: 05/26/22 08:52 Dose: 300 mg Documented By: FERCHO Glucose (Glucose Gel 15 Gm Gel..Gram.) 15 gm PO Q15M PRN; Protocol PRN Reason: per Hypoglycemia Standing Ord. Heparin Sodium (Porcine) (Heparin Sodium,Porcine 5,000 Unit/Ml Vial) 5,000 unit SUBCUT Q12H [facility] Last Admin: 05/26/22 00:56 Dose: 5,000 unit Documented By: HECTOR Insulin Glargine (Insulin Glargine,Hum.Rec.Anlog 100 Unit/Ml 10 Ml Vial) 40 unit SUBCUT DAILY [facility] Last Admin: 05/25/22 09:06 Dose: 40 unit Documented By: ARPAN Insulin Human Lispro (Insulin Lispro 100 Unit/Ml 3 Ml Vial) 0 unit SUBCUT QIDACHS [facility]; Protocol Last Admin: 05/26/22 07:42 Dose: Not Given Documented By: FERCHO Non-Admin Reason: No Insulin Coverage Labetalol HCl (Labetalol Hcl 100 Mg Tablet) 300 mg PO BID [facility]; Protocol Last Admin: 05/26/22 08:51 Dose: 300 mg Documented By: FERCHO Losartan Potassium (Losartan Potassium 50 Mg Tablet) 50 mg PO DAILY [facility]; Protocol Last Admin: 05/26/22 08:52 Dose: 50 mg Documented By: FERCHO Meclizine HCl (Meclizine Hcl 25 Mg Tablet) 25 mg PO Q6H PRN PRN Reason: Dizziness Last Admin: 05/26/22 08:52 Dose: 25 mg Documented By: FERCHO Metoclopramide HCl (Metoclopramide Hcl 5 Mg Tablet) 5 mg PO QID [facility] Last Admin: 05/26/22 08:53 Dose: Not Given Documented By: FERCHO Non-Admin Reason: Patient Refused Multivitamins/Vitamin C (Multivitamin Tablet) 1 tab PO DAILY [facility] Last Admin: 05/26/22 08:54 Dose: 1 tab Documented By: FERCHO Nifedipine (Nifedipine Er 30 Mg Tab.Er.24) 90 mg PO DAILY [facility]; Protocol Last Admin: 05/26/22 08:51 Dose: 90 mg Documented By: FERCHO Ondansetron HCl (Ondansetron Hcl 4 Mg/2 Ml Vial) 4 mg IVPUSH Q8H PRN PRN Reason: Nausea and Vomiting Pharmacy Consult (Consult Rx Perform Med Rec) 1 each MISCELLANE ONCE PRN PRN Reason: Consult order Simethicone (Simethicone 80 Mg Tab.Chew) 160 mg PO TID [facility] Last Admin: 05/26/22 08:53 Dose: Not Given Documented By: FERCHO Non-Admin Reason: Patient Refused Sitagliptin Phosphate (Sitagliptin Phosphate 25 Mg Tablet) 25 mg PO DAILY [facility] Sodium Chloride (0.9 % Sodium Chloride Flush 3 Ml Syringe) 3 ml IVFLUSH QSHIFT [facility] Last Admin: 05/26/22 08:51 Dose: 3 ml Documented By: FERCHO Torsemide (Torsemide 20 Mg Tablet) 40 mg PO DAILY [facility]; Protocol Trazodone HCl (Trazodone Hcl 50 Mg Tablet) 150 mg PO BEDTIME PRN PRN Reason: Sleep Last Admin: 05/25/22 20:21 Dose: 150 mg Documented By: HECTOR Venlafaxine HCl (Venlafaxine Hcl Er 150 Mg Cap.Er.24h) 150 mg PO DAILY [facility] Last Admin: 05/26/22 08:52 Dose: 150 mg Documented By: FERCHO Vitamin D (Cholecalciferol (Vitamin D3) 25 Mcg Tablet) 50 mcg PO DAILY [facility] Last Admin: 05/26/22 08:53 Dose: 50 mcg Documented By: FERCHO Labs 05/24/22 06:58 05/26/22 05:52 Labs: Laboratory Results - last 24 hr 05/25/22 05/25/22 05/26/22 14:49 18:52 01:04 Anion Gap Estim Creat Clear Calc Estimated GFR POC Glucose 105 155 H 125 H Random Glucose Calcium 05/26/22 05/26/22 05/26/22 05:52 07:29 11:12 Anion Gap 14 Estim Creat Clear Calc 34.8 Estimated GFR 24 POC Glucose 92 147 H Random Glucose 92 Calcium 9.1 Microbiology Microbiology Results: Microbiology 05/24/22 00:00 Urine Culture - Final Urine clean catch - Urine correia top Assessment and Plan (1) Acute diastolic (congestive) heart failure: Status: Acute (2) Elevated LFTs: Status: Acute (3) CKD (chronic kidney disease): Status: Acute Plan ?56-year-old? with past medical history of hypertension, diabetes, hyperlipidemia, CKD stage 3, recently admitted for transaminitis returns to the hospital today with complaints of shortness of breath found to have acute CHF new onset congestive diastolic heart failure /? acute CHF exacerbation -? unknown etiology, has elevated BNP, imaging suggestive of CHF, dyspnea, fatigue sob seems somewhat improving -? echocardiogram: Conclusions: - The left ventricular systolic function is normal.? The visually estimated ejection fraction is between 60-65%. ? - Possible mild basal inferior hypokinesis.? - No obvious valvular pathology seen on this study.? - There is a small loculated pericardial effusion overlying the? left atrium and right atrium.? d/w nephro -switched to torcemide,htn control-adjusted nifedpine/labetalol. -? daily weight(dry weight ?unclear) but bmi seems lower than admission, strict I&O( neg 650 ml), low-sodium diet -? cardiology consulted transaminitis - ? patient had extensive workup on recent admission for the same, numbers appear to have improved since discharge and are trending down lfts improivn -? no abdominal pain today diabetes -? continue home insulin - will add low-dose sliding scale insulin, diabetic diet hypertension uncontrolled orthostatic signs positive but no symptoms continue nifedpine/labetalol. CKD stage 3 -? at baseline -? continue following BMP. obesity-? was diet, exercise, would recommend follow-up outpatient with PCP ?DVT prophylaxis:? Heparin subQ inpatient need: new onset CHF and exacerbation requiring IV Lasix patient, monitor on tele renal function and electrolytes. Time Spent With Patient Time: Total time managing care of this patient today ____ minutes. Quality Stroke Does the patient have a stroke diagnosis?: No VTE Prior VTE?: No VTE Risk Level:: Medical - moderate - high VTE Device Contraindication: Treatment Not Indicated VTE Drug Contraindication: N/A - Med Ordered
[2022-05-26] MEDS: Simethicone 80 MG TAB.CHEW 160 MG PO ×2 (15:12→22:59)
[2022-05-26 16:20] LABS: Glucose, Whole Blood 112 mg/dL (60-115)
[2022-05-26] MEDS: Metoclopramide HCl 5 MG TABLET PO ×2 (16:32→22:59)
[2022-05-26] MEDS: Acetaminophen 325 MG TABLET 650 MG PO (18:35)
[2022-05-26 19:53] LABS: Glucose, Whole Blood 223 mg/dL (60-115)
[2022-05-26] MEDS: traZODone HCL 50 MG TABLET 150 MG PO (22:59)
[2022-05-26] MEDS: clonazePAM 0.5 MG TABLET PO (22:59)
[2022-05-26] MEDS: Insulin Lispro 100 UNIT/ML 3 ML VIAL SUBCUT (23:00)
[2022-05-27] VITALS (10 sets, daily range): BP systolic 141–170; BP diastolic 65–83; PULSE 66–79; RESP 18–20; TEMP 36.1–37; O2SAT 91–98; BMI 33.3
[2022-05-27 07:35] LABS: Glucose, Whole Blood 150 mg/dL (60-115)
[2022-05-27 07:41] LABS: Anion Gap 16 (12-20); Blood Urea Nitrogen 54 mg/dL (9-16); Calcium 9.2 mg/dL (8.4-10.2); Carbon Dioxide 22 mmol/L (22-29); Chloride 102 mmol/L (96-108); Creatinine Clr Calc Pharmacy 35.8; Estimated Glomerular Filt Rate 24; Glucose Random 172 mg/dL (60-115); Potassium 4.4 mmol/L (3.3-5.1); Sodium 136 mmol/L (135-145)
[2022-05-27] MEDS: NIFEdipine ER 30 MG TAB.ER.24 90 MG PO (09:28)
[2022-05-27] MEDS: 0.9 % Sodium Chloride Flush 3 ML SYRINGE IVFLUSH ×2 (09:28→17:25)
[2022-05-27] MEDS: Losartan Potassium 50 MG TABLET PO (09:29)
[2022-05-27] MEDS: Cholecalciferol (Vitamin D3) 25 MCG TABLET 50 MCG PO (09:29)
[2022-05-27] MEDS: Labetalol HCL 100 MG TABLET 300 MG PO (09:29)
[2022-05-27] MEDS: Venlafaxine HCl ER 150 MG CAP.ER.24H PO (09:29)
[2022-05-27] MEDS: Torsemide 20 MG TABLET 40 MG PO (09:29)
[2022-05-27] MEDS: Gabapentin 300 MG CAPSULE PO ×2 (09:29→20:11)
[2022-05-27] MEDS: buPROPion HCl XL 150 MG TAB.ER.24H PO (09:29)
[2022-05-27] MEDS: SITagliptin Phosphate 25 MG TABLET PO (09:29)
[2022-05-27] MEDS: Multivitamin TABLET 1 TAB PO (09:30)
[2022-05-27] MEDS: Famotidine 20 MG TABLET PO ×2 (09:30→20:11)
[2022-05-27] MEDS: Simethicone 80 MG TAB.CHEW 160 MG PO ×3 (09:36→20:11)
[2022-05-27] MEDS: Metoclopramide HCl 5 MG TABLET PO ×4 (09:36→20:11)
--- NOTE | 2022-05-27 10:21 | P.PNCA_ITS ---
Subjective Subjective Date of Service: 05/27/22 Interval history: He states that he is actually feeling better. Shortness of breath is improved. Review of Systems Review of Systems Yes all other systems are reviewed and are negative Constitutional: Reports as per HPI and Reports no additional constitutional complaints Eyes: Reports as per HPI and Denies no additional eye complaints Denies system reviewed and no additional complaints, except as documented and Reports as per HPI Cardiovascular: Reports as per HPI, Reports no additional cardiovascular complaints, Denies acrocyanosis, Denies cool extremities, Denies chest pain, Denies leg edema, Denies lightheadedness, Denies palpitations and Reports dyspnea Respiratory: Reports as per HPI, Denies no additional respiratory complaints and Reports dyspnea Gastrointestinal: Reports as per HPI and Denies no additional gastrointestinal complaints Genitourinary: Reports no additional male genitourinary complaints and Reports a s per HPI Musculoskeletal: Reports no additional musculoskeletal complaints and Reports as per HPI Skin/Breast: Reports system reviewed and no additional complaints, except as docu Reports system reviewed and no additional complaints, except as documented and Reports as per HPI Psychiatric: Reports no additional psychiatric complaints and Reports as per HPI Endocrine: Reports no additional endocrine complaints, Reports as per HPI and Denies palpitations Hematologic/Lymphatic: Reports no additional hematologic/lymphatic complaints and Reports as per HPI Allergic/Immunologic: Reports no additional allergic/immunologic complaints and Reports as per HPI Physical Exam Vital Signs: Last Vital Signs Temp 97.2 F 05/27/22 08:00 Pulse 79 05/27/22 10:19 Resp 20 05/27/22 08:00 BP 163/83 H 05/27/22 10:19 Pulse Ox 95 05/27/22 08:00 O2 Del Method 05/27/22 08:00 BMI result Body Mass Index 33.3 Const General: comfortable and no acute distress Orientation/consciousness: patient oriented x3 HEENT Other: Unremarkable Head: Yes normal to inspection Neck Neck: Yes normal visual inspection Chest Chest palpation & inspection: normal inspection of the chest Resp Auscultation: clear to auscultation bilaterally Cardio Palpation: normal PMI Heart sounds: S1 normal heart sound present, S2 normal heart sound present, no gallops, no murmurs and no rubs GI Palpation (GI): Soft to palpation Back/Spine/Pelvis Other: unremarkable Skin General skin exam: no rashes or lesions noted Neuro General: patient oriented x3 Extrem General: Yes normal to inspection Psych Mental Status: mental status grossly normal Objective Labs and Meds 05/24/22 06:58 05/27/22 06:26 Lab results: Laboratory Results - last 24 hr 05/26/22 05/26/22 05/26/22 11:12 16:13 19:50 Sodium Potassium Chloride Carbon Dioxide Anion Gap BUN Creatinine Estim Creat Clear Calc Estimated GFR POC Glucose 147 H 112 223 H Random Glucose Calcium 05/27/22 05/27/22 06:26 07:25 Sodium 136 Potassium 4.4 Chloride 102 Carbon Dioxide 22 Anion Gap 16 BUN 54 H Creatinine 2.71 H Estim Creat Clear Calc 35.8 Estimated GFR 24 POC Glucose 150 H Random Glucose 172 H Calcium 9.2 Progress Note: A&P Assessment and plan (1) Acute diastolic (congestive) heart failure: Status: Acute (2) Hypertensive emergency: Status: Acute Plan Overall, suspected uncontrolled blood pressures leading to diastolic heart failure. Admission blood pressures were over 200 but currently improved. Still however high. For meds he is on a combination of labetalol, losartan, nifedipine. However, it seems there is also some orthostatic issues and hence difficult to titrate optimally. Hence may have to accept some degree of hypertension as long as there is not too much. For diuretics, per nephrology torsemide recommended. No changes from our end. In the most recent echocardiogram, LVEF 60-65% and possible basal inferior hypokinesis but no changes compared to before. Discussed with Dr. Fishman. Time Spent With Patient Time: Total time managing care of this patient today 45 minutes. Progress Note: Quality Stroke Does the patient have a stroke diagnosis?: No Procedures Date of Service Date of Service: 05/27/22
[2022-05-27 11:45] LABS: Glucose, Whole Blood 175 mg/dL (60-115)
[2022-05-27] MEDS: Heparin Sodium,Porcine 5,000 UNIT/ML VIAL 5000 UNIT SUBCUT (12:50)
[2022-05-27] MEDS: Acetaminophen 325 MG TABLET 650 MG PO (12:54)
--- NOTE | 2022-05-27 14:41 | P.PNIM_ITS ---
Subjective Subjective Date of Service: 05/27/22 Interval History: chf ,uncontrolled htn Review of Systems sob improvin, Denies any chest pain or abdominal pain nausea or vomitin Physical Exam Vital Signs: Vital Signs: Last Vital Signs Temp 97.6 F 05/27/22 10:26 Pulse 79 05/27/22 10:56 Resp 20 05/27/22 10:26 BP 163/83 H 05/27/22 10:56 Pulse Ox 95 05/27/22 10:26 O2 Del Method 05/27/22 10:26 BMI result Body Mass Index 33.3 Appearance: Alert.? Oriented X3.sob with exersion? . cvs: rrr, [id number] . res: clear to auscultation ,no rhonchii or wheezing abd: no rebound or guarding ,nt, bs present. ext pulses present , no cyanosis. neuro: axo3 , nonfocal. Objective Data Active Medications Acetaminophen (Acetaminophen 325 Mg Tablet) 650 mg PO Q6H PRN PRN Reason: Pain, Mild (Pain Scale 1-3) Last Admin: 05/27/22 12:54 Dose: 650 mg Documented By: MARIANNE Bupropion HCl (Bupropion Hcl Xl 150 Mg Tab.Er.24h) 150 mg PO DAILY [facility] Last Admin: 05/27/22 09:29 Dose: 150 mg Documented By: MARIANNE Clonazepam (Clonazepam 0.5 Mg Tablet) 0.5 mg PO TID PRN PRN Reason: anxiety Last Admin: 05/26/22 22:59 Dose: 0.5 mg Documented By: EKCIA Dextrose (Dextrose 50 % 25 Gm/50 Ml Syringe) 25 gm IVPUSH Q15M PRN; Protocol PRN Reason: per Hypoglycemia Standing Ord. Docusate Sodium (Docusate Sodium 100 Mg Capsule) 100 mg PO DAILY PRN PRN Reason: Constipation Famotidine (Famotidine 20 Mg Tablet) 20 mg PO BID [facility] Last Admin: 05/27/22 09:30 Dose: 20 mg Documented By: MARIANNE Gabapentin (Gabapentin 300 Mg Capsule) 300 mg PO BID [facility] Last Admin: 05/27/22 09:29 Dose: 300 mg Documented By: MARIANNE Glucose (Glucose Gel 15 Gm Gel..Gram.) 15 gm PO Q15M PRN; Protocol PRN Reason: per Hypoglycemia Standing Ord. Heparin Sodium (Porcine) (Heparin Sodium,Porcine 5,000 Unit/Ml Vial) 5,000 unit SUBCUT Q12H [facility] Last Admin: 05/27/22 12:50 Dose: 5,000 unit Documented By: MARIANNE Insulin Glargine (Insulin Glargine,Hum.Rec.Anlog 100 Unit/Ml 10 Ml Vial) 40 unit SUBCUT DAILY [facility] Last Admin: 05/25/22 09:06 Dose: 40 unit Documented By: ARPAN Insulin Human Lispro (Insulin Lispro 100 Unit/Ml 3 Ml Vial) 0 unit SUBCUT Q IDACHS [facility]; Protocol Last Admin: 05/27/22 12:04 Dose: Not Given Documented By: MARIANNE Non-Admin Reason: No Insulin Coverage Labetalol HCl (Labetalol Hcl 100 Mg Tablet) 300 mg PO BID [facility]; Protocol Last Admin: 05/27/22 09:29 Dose: 300 mg Documented By: MARIANNE Losartan Potassium (Losartan Potassium 50 Mg Tablet) 50 mg PO DAILY [facility]; Protocol Last Admin: 05/27/22 09:29 Dose: 50 mg Documented By: MARIANNE Meclizine HCl (Meclizine Hcl 25 Mg Tablet) 25 mg PO Q6H PRN PRN Reason: Dizziness Last Admin: 05/26/22 16:32 Dose: 25 mg Documented By: FERCHO Metoclopramide HCl (Metoclopramide Hcl 5 Mg Tablet) 5 mg PO QID [facility] Last Admin: 05/27/22 12:50 Dose: 5 mg Documented By: MARIANNE Multivitamins/Vitamin C (Multivitamin Tablet) 1 tab PO DAILY [facility] Last Admin: 05/27/22 09:30 Dose: 1 tab Documented By: MARIANNE Nifedipine (Nifedipine Er 30 Mg Tab.Er.24) 90 mg PO DAILY [facility]; Protocol Last Admin: 05/27/22 09:28 Dose: 90 mg Documented By: MARIANNE Ondansetron HCl (Ondansetron Hcl 4 Mg/2 Ml Vial) 4 mg IVPUSH Q8H PRN PRN Reason: Nausea and Vomiting Pharmacy Consult (Consult Rx Perform Med Rec) 1 each MISCELLANE ONCE PRN PRN Reason: Consult order Simethicone (Simethicone 80 Mg Tab.Chew) 160 mg PO TID [facility] Last Admin: 05/27/22 09:36 Dose: 160 mg Documented By: MARIANNE Sitagliptin Phosphate (Sitagliptin Phosphate 25 Mg Tablet) 25 mg PO DAILY [facility] Last Admin: 05/27/22 09:29 Dose: 25 mg Documented By: MARIANNE Sodium Chloride (0.9 % Sodium Chloride Flush 3 Ml Syringe) 3 ml IVFLUSH QSHIFT [facility] Last Admin: 05/27/22 09:28 Dose: 3 ml Documented By: MARIANNE Torsemide (Torsemide 20 Mg Tablet) 40 mg PO DAILY [facility]; Protocol Last Admin: 05/27/22 09:29 Dose: 40 mg Documented By: MARIANNE Trazodone HCl (Trazodone Hcl 50 Mg Tablet) 150 mg PO BEDTIME PRN PRN Reason: Sleep Last Admin: 05/26/22 22:59 Dose: 150 mg Documented By: KECIA Venlafaxine HCl (Venlafaxine Hcl Er 150 Mg Cap.Er.24h) 150 mg PO DAILY [facility] Last Admin: 05/27/22 09:29 Dose: 150 mg Documented By: MARIANNE Vitamin D (Cholecalciferol (Vitamin D3) 25 Mcg Tablet) 50 mcg PO DAILY [facility] Last Admin: 05/27/22 09:29 Dose: 50 mcg Documented By: MARIANNE Labs 05/24/22 06:58 05/27/22 06:26 Labs: Laboratory Results - last 24 hr 05/26/22 05/26/22 05/27/22 16:13 19:50 06:26 Anion Gap 16 Estim Creat Clear Calc 35.8 Estimated GFR 24 POC Glucose 112 223 H Random Glucose 172 H Calcium 9.2 05/27/22 05/27/22 07:25 11:34 Anion Gap Estim Creat Clear Calc Estimated GFR POC Glucose 150 H 175 H Random Glucose Calcium Assessment and Plan (1) Acute diastolic (congestive) heart failure: Status: Acute (2) Elevated LFTs: Status: Acute (3) CKD (chronic kidney disease): Status: Acute Plan ?56-year-old? with past medical history of hypertension, diabetes, hyperlipidemia, CKD stage 3, recently admitted for transaminitis returns to the hospital today with complaints of shortness of breath found to have acute CHF new onset congestive diastolic heart failure /? acute CHF exacerbation -? unknown etiology, has elevated BNP, imaging suggestive of CHF, dyspnea, fatigue sob seems somewhat improving -? echocardiogram: Conclusions: - The left ventricular systolic function is normal.? The visually estimated ejection fraction is between 60-65%. ? - Possible mild basal inferior hypokinesis.? - No obvious valvular pathology seen on this study.? - There is a small loculated pericardial effusion overlying the? left atrium and right atrium.? d/w nephro -switched to torcemide,htn control-adjusted nifedpine/labetalol. -? daily weight(dry weight ?unclear) but bmi seems lower than admission, strict I&O( neg 650 ml), low-sodium diet -? cardiology consulted transaminitis - ? patient had extensive workup on recent admission for the same, numbers appear to have improved since discharge and are trending down lfts improivn -? no abdominal pain today diabetes -? continue home insulin - will add low-dose sliding scale insulin, diabetic diet hypertension uncontrolled with orthosatsis has dizziness (symptomatic) adjusted nifedipine 60 mg ,stop labetalol, added metoprolol. CKD stage 3 -? at baseline -? continue following BMP. obesity-? was diet, exercise, would recommend follow-up outpatient with PCP ?DVT prophylaxis:? Heparin subQ inpatient need: htn spine /orthostasis -symptomatic -med htn medictaion adjust ment and blood pressure and any new symptoms monitering Time Spent With Patient Time: Total time managing care of this patient today ____ minutes. Quality Stroke Does the patient have a stroke diagnosis?: No VTE Prior VTE?: No VTE Risk Level:: Medical - moderate - high VTE Device Contraindication: Treatment Not Indicated VTE Drug Contraindication: N/A - Med Ordered
[2022-05-27] MEDS: clonazePAM 0.5 MG TABLET PO (14:54)
[2022-05-27] MEDS: Meclizine HCl 25 MG TABLET PO (14:55)
--- NOTE | 2022-05-27 15:17 | PC.NURSE ---
orthostatic BP taken 5 minutes apart per MD. results as followed supine: BP 143/65, HR 71 sitting: BP 139/70, HR 67 standing: BP 96/63, HR 74
[2022-05-27 16:15] LABS: Glucose, Whole Blood 95 mg/dL (60-115)
[2022-05-27] MEDS: Metoprolol Tartrate 50 MG TABLET PO (20:11)
[2022-05-27] MEDS: traZODone HCL 50 MG TABLET 150 MG PO (20:14)
[2022-05-27 20:58] LABS: Glucose, Whole Blood 132 mg/dL (60-115)
[2022-05-28] VITALS (9 sets, daily range): BP systolic 138–165; BP diastolic 70–80; PULSE 64–86; RESP 18–20; TEMP 35.9–37.2; O2SAT 93–98; BMI 33.3
[2022-05-28] MEDS: Heparin Sodium,Porcine 5,000 UNIT/ML VIAL 5000 UNIT SUBCUT ×3 (00:56→23:55)
[2022-05-28] MEDS: Acetaminophen 325 MG TABLET 650 MG PO (00:58)
[2022-05-28 07:58] LABS: Glucose, Whole Blood 151 mg/dL (60-115)
[2022-05-28] MEDS: Metoprolol Tartrate 50 MG TABLET PO ×2 (08:59→20:43)
[2022-05-28] MEDS: NIFEdipine ER 30 MG TAB.ER.24 60 MG PO (09:00)
[2022-05-28] MEDS: Losartan Potassium 50 MG TABLET PO (09:00)
[2022-05-28] MEDS: Metoclopramide HCl 5 MG TABLET PO ×4 (09:00→20:42)
[2022-05-28] MEDS: Famotidine 20 MG TABLET PO ×2 (09:00→20:43)
[2022-05-28] MEDS: buPROPion HCl XL 150 MG TAB.ER.24H PO (09:00)
[2022-05-28] MEDS: Torsemide 20 MG TABLET 40 MG PO (09:01)
[2022-05-28] MEDS: SITagliptin Phosphate 25 MG TABLET PO (09:02)
[2022-05-28] MEDS: Cholecalciferol (Vitamin D3) 25 MCG TABLET 50 MCG PO (09:02)
[2022-05-28] MEDS: Venlafaxine HCl ER 150 MG CAP.ER.24H PO (09:02)
[2022-05-28] MEDS: Multivitamin TABLET 1 TAB PO (09:02)
[2022-05-28] MEDS: Gabapentin 300 MG CAPSULE PO ×2 (09:03→20:41)
[2022-05-28] MEDS: 0.9 % Sodium Chloride Flush 3 ML SYRINGE IVFLUSH ×3 (09:03→20:47)
[2022-05-28] MEDS: Simethicone 80 MG TAB.CHEW 160 MG PO ×2 (09:03→14:15)
[2022-05-28] MEDS: Meclizine HCl 25 MG TABLET PO (09:09)
[2022-05-28 11:32] LABS: Glucose, Whole Blood 129 mg/dL (60-115)
--- NOTE | 2022-05-28 12:29 | HO.PM.IMPN ---
Subjective Subjective Date of Service: 05/28/22 Interval History: chf ,uncontrolled htn, orthostasis Review of Systems sob improvin,Denies any chest pain or abdominal pain nausea or vomitin still has dizziness Physical Exam Vital Signs: Vital Signs: Last Vital Signs Temp 98.4 F 05/28/22 11:16 Pulse 68 05/28/22 11:16 Resp 18 05/28/22 11:16 BP 165/77 H 05/28/22 11:16 Pulse Ox 98 05/28/22 11:16 O2 Del Method 05/28/22 11:16 BMI result Body Mass Index 33.3 Appearance: Alert.? Oriented X3.sob with exersion? . cvs: rrr, [id number] . res: clear to auscultation ,no rhonchii or wheezing abd: no rebound or guarding ,nt, bs present. ext pulses present , no cyanosis. neuro: axo3 , nonfocal. Objective Data Active Medications Acetaminophen (Acetaminophen 325 Mg Tablet) 650 mg PO Q6H PRN PRN Reason: Pain, Mild (Pain Scale 1-3) Last Admin: 05/28/22 00:58 Dose: 650 mg Documented By: ISSAC Bupropion HCl (Bupropion Hcl Xl 150 Mg Tab.Er.24h) 150 mg PO DAILY [facility] Last Admin: 05/28/22 09:00 Dose: 150 mg Documented By: DONNIE Clonazepam (Clonazepam 0.5 Mg Tablet) 0.5 mg PO TID PRN PRN Reason: anxiety Last Admin: 05/27/22 14:54 Dose: 0.5 mg Documented By: MARIANNE Dextrose (Dextrose 50 % 25 Gm/50 Ml Syringe) 25 gm IVPUSH Q15M PRN; Protocol PRN Reason: per Hypoglycemia Standing Ord. Docusate Sodium (Docusate Sodium 100 Mg Capsule) 100 mg PO DAILY PRN PRN Reason: Constipation Famotidine (Famotidine 20 Mg Tablet) 20 mg PO BID [facility] Last Admin: 05/28/22 09:00 Dose: 20 mg Documented By: DONNIE Gabapentin (Gabapentin 300 Mg Capsule) 300 mg PO BID [facility] Last Admin: 05/28/22 09:03 Dose: 300 mg Documented By: DONNIE Glucose (Glucose Gel 15 Gm Gel..Gram.) 15 gm PO Q15M PRN; Protocol PRN Reason: per Hypoglycemia Standing Ord. Heparin Sodium (Porcine) (Heparin Sodium,Porcine 5,000 Unit/Ml Vial) 5,000 unit SUBCUT Q12H [facility] Last Admin: 05/28/22 00:56 Dose: 5,000 unit Documented By: ISSAC Insulin Glargine (Insulin Glargine,Hum.Rec.Anlog 100 Unit/Ml 10 Ml Vial) 40 unit SUBCUT DAILY [facility] Last Admin: 05/25/22 09:06 Dose: 40 unit Documented By: ARPAN Insulin Human Lispro (Insulin Lispro 100 Unit/Ml 3 Ml Vial) 0 unit SUBCUT QIDACHS [facility]; Protocol Last Admin: 05/28/22 12:09 Dose: Not Given Documented By: DONNIE Non-Admin Reason: No Insulin Coverage Losartan Potassium (Losartan Potassium 50 Mg Tablet) 50 mg PO DAILY [facility]; Protocol Last Admin: 05/28/22 09:00 Dose: 50 mg Documented By: DONNIE Meclizine HCl (Meclizine Hcl 25 Mg Tablet) 25 mg PO Q6H PRN PRN Reason: Dizziness Last Admin: 05/28/22 09:09 Dose: 25 mg Documented By: DONNIE Metoclopramide HCl (Metoclopramide Hcl 5 Mg Tablet) 5 mg PO QID [facility] Last Admin: 05/28/22 09:00 Dose: 5 mg Documented By: DONNIE Metoprolol Tartrate (Metoprolol Tartrate 50 Mg Tablet) 50 mg PO BID [facility]; Protocol Last Admin: 05/28/22 08:59 Dose: 50 mg Documented By: DONNIE Multivitamins/Vitamin C (Multivitamin Tablet) 1 tab PO DAILY [facility] Last Admin: 05/28/22 09:02 Dose: 1 tab Documented By: DONNIE Nifedipine (Nifedipine Er 30 Mg Tab.Er.24) 60 mg PO DAILY [facility]; Protocol Last Admin: 05/28/22 09:00 Dose: 60 mg Documented By: DONNIE Ondansetron HCl (Ondansetron Hcl 4 Mg/2 Ml Vial) 4 mg IVPUSH Q8H PRN PRN Reason: Nausea and Vomiting Pharmacy Consult (Consult Rx Perform Med Rec) 1 each MISCELLANE ONCE PRN PRN Reason: Consult order Simethicone (Simethicone 80 Mg Tab.Chew) 160 mg PO TID [facility] Last Admin: 05/28/22 09:03 Dose: 160 mg Documented By: DONNIE Sitagliptin Phosphate (Sitagliptin Phosphate 25 Mg Tablet) 25 mg PO DAILY [facility] Last Admin: 05/28/22 09:02 Dose: 25 mg Documented By: DONNIE Sodium Chloride (0.9 % Sodium Chloride Flush 3 Ml Syringe) 3 ml IVFLUSH QSHIFT [facility] Last Admin: 05/28/22 09:03 Dose: 3 ml Documented By: DONNIE Torsemide (Torsemide 20 Mg Tablet) 40 mg PO DAILY [facility]; Protocol Last Admin: 05/28/22 09:01 Dose: 40 mg Documented By: DONNIE Trazodone HCl (Trazodone Hcl 50 Mg Tablet) 150 mg PO BEDTIME PRN PRN Reason: Sleep Last Admin: 05/27/22 20:14 Dose: 150 mg Documented By: ISSAC Venlafaxine HCl (Venlafaxine Hcl Er 150 Mg Cap.Er.24h) 150 mg PO DAILY [facility] Last Admin: 05/28/22 09:02 Dose: 150 mg Documented By: DONNIE Vitamin D (Cholecalciferol (Vitamin D3) 25 Mcg Tablet) 50 mcg PO DAILY [facility] Last Admin: 05/28/22 09:02 Dose: 50 mcg Documented By: DONNIE Labs 05/24/22 06:58 05/27/22 06:26 Labs: Laboratory Results - last 24 hr 05/27/22 05/27/22 05/28/22 16:10 20:55 07:26 POC Glucose 95 132 H 151 H 05/28/22 11:18 POC Glucose 129 H Assessment and Plan (1) Acute diastolic (congestive) heart failure: Status: Acute (2) Elevated LFTs: Status: Acute (3) CKD (chronic kidney disease): Status: Acute Plan ?56-year-old? with past medical history of hypertension, diabetes, hyperlipidemia, CKD stage 3, recently admitted for transaminitis returns to the hospital today with complaints of shortness of breath found to have acute CHF new onset congestive diastolic heart failure /? acute CHF exacerbation,orthostasis -? unknown etiology, has elevated BNP, imaging suggestive of CHF, dyspnea, fatigue sob seems somewhat improving -? echocardiogram: Conclusions: - The left ventricular systolic function is normal.? The visually estimated ejection fraction is between 60-65%. ? - Possible mild basal inferior hypokinesis.? - No obvious valvular pathology seen on this study.? - There is a small loculated pericardial effusion overlying the? left atrium and right atrium.? d/w nephro -switched to torcemide,htn control-adjusted nifedpine/labetalol. -? daily weight(dry weight ?unclear) but bmi seems lower than admission, strict I&O( neg 1800 ml), low-sodium diet -? cardiology consulted noted-continue above htn regimen ,torsemide. due to chf /ckd : nephro following- considering orthostasis and supine htn -med adjutments made yesterday -still patient has orthostatic symptoms : goal not aggresive control of bp , added jayde merrill and moniter . transaminitis - ? patient had extensive workup on recent admission for the same, numbers appear to have improved since discharge and are trending down lfts improivn -? no abdominal pain today diabetes -? continue home insulin - will add low-dose sliding scale insulin, diabetic diet hypertension uncontrolled with orthosatsis has dizziness (symptomatic) adjusted nifedipine 60 mg ,stop labetalol, added metoprolol. CKD stage 3 -? at baseline -? continue following BMP. obesity-? was diet, exercise, would recommend follow-up outpatient with PCP ?DVT prophylaxis:? Heparin subQ inpatient need: htn spine /orthostasis -symptomatic -med htn medictaion adjustment and blood pressure and any new symptoms monitering Time Spent With Patient Time: Total time managing care of this patient today ____ minutes. Quality Stroke Does the patient have a stroke diagnosis?: No VTE Prior VTE?: No VTE Risk Level:: Medical - moderate - high VTE Device Contraindication: Treatment Not Indicated VTE Drug Contraindication: N/A - Med Ordered
--- NOTE | 2022-05-28 16:11 | MHC.CM.PN ---
PT NOT MEDICALLY CLEARED FOR DC,( MED MONITORING/ADJUSTMENT, HTN) CM WILL CONTINUE TO FOLLOW
[2022-05-28 16:14] LABS: Glucose, Whole Blood 134 mg/dL (60-115)
[2022-05-28 20:11] LABS: Glucose, Whole Blood 150 mg/dL (60-115)
[2022-05-28] MEDS: traZODone HCL 50 MG TABLET 150 MG PO (20:42)
[2022-05-28] MEDS: clonazePAM 0.5 MG TABLET PO (20:42)
[2022-05-28] MEDS: Docusate Sodium 100 MG CAPSULE PO (20:43)
--- NOTE | 2022-05-28 21:49 | PM.PNNEP ---
Subjective Subjective Date of Service: 05/28/22 Interval history: Seen and examined, events noted C/O Lheaded Physical Exam Vital Signs: Vital Signs: Last Vital Signs Temp 98.7 F 05/28/22 19:33 Pulse 72 05/28/22 19:38 Resp 18 05/28/22 19:33 BP 153/70 H 05/28/22 19:38 Pulse Ox 98 05/28/22 19:33 O2 Del Method 05/28/22 19:33 BMI result Body Mass Index 33.3 Const: General: cooperative, comfortable and no acute distress Orientation/consciousness: patient oriented x3 HEENT: Other: Unremarkable Head: Yes normal to inspection Eyes: General: appearance normal, both eyes and all related structures Neck: Neck: Yes normal visual inspection Chest: Chest palpation & inspection: normal inspection of the chest Resp: Other: Crackles bilaterally Effort & Inspection: normal respiratory effort Auscultation: clear to auscultation bilaterally Cardio: Palpation: normal PMI Rate: regular rate Rhythm: regular rhythm Heart sounds: S1 normal heart sound present, S2 normal heart sound present, no gallops, no murmurs and no rubs GI: Palpation (GI): Soft to palpation Auscultation: normal bowel sounds Back/Spine/Pelvis: Other: unremarkable Skin: General skin exam: no rashes or lesions noted Neuro: General: patient oriented x3 Cognition (Neuro): normal cognition Extrem: General: Yes normal to inspection and Yes no pedal edema Psych: Mental Status: mental status grossly normal Objective Data Labs 05/24/22 06:58 05/27/22 06:26 Labs: Laboratory Results - last 24 hr 05/28/22 05/28/22 05/28/22 07:26 11:18 15:30 POC Glucose 151 H 129 H 134 H 05/28/22 19:43 POC Glucose 150 H Microbiology Microbiology Results: Microbiology 05/24/22 00:00 Urine clean catch - Urine correia top Urine Culture - Final Procedures Date of Service Date of Service: 05/28/22 Assessment & Plan Assessment and plan (1) Diabetic nephropathy associated with type 2 diabetes mellitus: Status: Acute (2) CKD (chronic kidney disease) stage 4, GFR 15-29 ml/min: Status: Acute (3) Acute diastolic (congestive) heart failure: Status: Acute (4) Diabetes mellitus with coincident hypertension: Status: Acute (5) Diabetic neuropathy associated with type 2 diabetes mellitus: Status: Acute Plan - Adv CKD:c/wDN/HTN renaldis -HFpEF: vol status ok now -Orthostatic Hypotension with supine HTN REC: cont to track renal func, adjust BP meds to avoid OH, cont RASi; arrange ABPM as outpt will follow with team Time Spent With Patient Time: Total time managing care of this patient today ____ minutes. Progress Note: Quality Stroke Does the patient have a stroke diagnosis?: No
[2022-05-28] MEDS: Benzonatate 100 MG CAPSULE 200 MG PO (23:52)
[2022-05-29 04:00] VITALS: BP 149/86; PULSE 70; RESP 18; TEMP 37.7; O2SAT 96
[2022-05-29 07:18] LABS: Glucose, Whole Blood 151 mg/dL (60-115)
[2022-05-29 07:59] LABS: Anion Gap 17 (12-20); Blood Urea Nitrogen 66 mg/dL (9-16); Calcium 9.5 mg/dL (8.4-10.2); Carbon Dioxide 22 mmol/L (22-29); Chloride 99 mmol/L (96-108); Creatinine Clr Calc Pharmacy 31.5; Estimated Glomerular Filt Rate 21; Glucose Random 147 mg/dL (60-115); Potassium 5.7 mmol/L (3.3-5.1); Sodium 132 mmol/L (135-145)
[2022-05-29 08:00] VITALS: BP 149/71; PULSE 76; RESP 18; TEMP 36.6
[2022-05-29 08:03] LABS: B Type Natriuretic Peptide 101 pg/mL (<100)
[2022-05-29] MEDS: SITagliptin Phosphate 25 MG TABLET PO (08:48)
[2022-05-29] MEDS: Venlafaxine HCl ER 150 MG CAP.ER.24H PO (08:48)
[2022-05-29] MEDS: Simethicone 80 MG TAB.CHEW 160 MG PO ×2 (08:48→14:09)
[2022-05-29] MEDS: Gabapentin 300 MG CAPSULE PO (08:48)
[2022-05-29] MEDS: buPROPion HCl XL 150 MG TAB.ER.24H PO (08:48)
[2022-05-29] MEDS: Famotidine 20 MG TABLET PO (08:48)
[2022-05-29] MEDS: NIFEdipine ER 30 MG TAB.ER.24 60 MG PO (08:48)
[2022-05-29] MEDS: Metoprolol Tartrate 50 MG TABLET PO (08:48)
[2022-05-29] MEDS: Cholecalciferol (Vitamin D3) 25 MCG TABLET 50 MCG PO (08:49)
[2022-05-29] MEDS: Multivitamin TABLET 1 TAB PO (08:49)
[2022-05-29] MEDS: Metoclopramide HCl 5 MG TABLET PO ×2 (08:49→14:10)
[2022-05-29] MEDS: Sodium Zirconium Cyclosilicate 10 GM POWD.PACK PO (08:54)
[2022-05-29] MEDS: 0.9 % Sodium Chloride Flush 3 ML SYRINGE IVFLUSH (08:58)
[2022-05-29 10:54] LABS: Glucose, Whole Blood 143 mg/dL (60-115)
[2022-05-29 11:55] VITALS: BP 147/69; PULSE 86; RESP 18; TEMP 36.7
[2022-05-29 12:23] LABS: Anion Gap 16 (12-20); Blood Urea Nitrogen 64 mg/dL (9-16); Calcium 9.6 mg/dL (8.4-10.2); Carbon Dioxide 22 mmol/L (22-29); Chloride 100 mmol/L (96-108); Creatinine Clr Calc Pharmacy 32.6; Estimated Glomerular Filt Rate 22; Glucose Random 114 mg/dL (60-115); Potassium 5.1 mmol/L (3.3-5.1); Sodium 133 mmol/L (135-145)
--- NOTE | 2022-05-29 14:06 | P.DS_ITS ---
DS: Providers Provider Date of Service: 05/29/22 Date of admission: 05/23/22 23:42 Primary care physician: Sarthak Spencer MD Consults: 05/23/22 23:41 Consult to Cardiology Routine Consulting Provider: Freedom Pedroza Reason for consultation: CHF new onset Has provider been notified: No 05/24/22 17:48 Consult to Nephrology Routine Consulting Provider: Jos Stevenson Reason for consultation: ckd in settin of new chf Has provider been notified: No Attending physician on discharge: Jr Mcneal Discharging clinician: Brynn Mane DS: Diagnosis Discharge Diagnosis (1) Diabetic nephropathy associated with type 2 diabetes mellitus: Status: Acute (2) CKD (chronic kidney disease) stage 4, GFR 15-29 ml/min: Status: Inactive (3) Acute diastolic (congestive) heart failure: Status: Acute (4) Diabetes mellitus with coincident hypertension: Status: Acute (5) Diabetic neuropathy associated with type 2 diabetes mellitus: Status: Acute DS: Summary Status at Discharge Cognitive/behavioral status at discharge: HP as per admitting provider 56-year-old male with past medical history of hypertension, CKD stage 3, depression, diabetes, GERD, HLD, sleep apnea, vitamin-D deficiency among others, presents to the hospital with complaints of shortness of breath.? Of note patient was discharged? from the hospital on 05/21 after being evaluated for abdominal pain as well as elevated LFTs.? Patient returns today stating that he has been having shortness of breath 2 days prior to discharge at that time contributed to anxiety.? He reports shortness of breath on minimal exertion, becoming significantly fatigue and dyspnea acute on walking few feet in his house, he also reports a cough that is dry nonproductive.? ? Denies any lower extremity edema no orthopnea or PND.? Any abdominal pain, nausea or vomiting, no diarrhea constipation, no urinary symptoms. On arrival to the ED patient hemodynamically stable with no significant abnormal vitals satting 95% on room air Labs are significant for WBC count of 9.9, hemoglobin of 9.0, hematocrit 26.3, sodium of 134, creatinine of 3.06? which is around his baseline, total bili of 1.3, AST of 38, ALT of 98, alk-phos of 413 which all have decreased since discharge, BNP of 441, Patient has no history of CHF and reports no chest pain. chest x-ray shows interstitial edema . New onset congestive diastolic?heart failure. Treated with IV lasix. negative 3.2L Balance. Echo with normal EF. Continue Torsemide, monitor weights at home. orthostasis. Continue BP medications, avoid over correction of blood pressure to avoid orthostatic episodes. May use Higinio stockings Transaminitis. Likely from volume overload. diabetes. Continue home medications CKD stage 3. baseline Obesity. Discussed importance of weight management as this may be contributing to worsening of other comorbidities Time Spent with Patient Time attestation: Total time managing care of this patient today ____ minutes. Discharge coordination time: Greater than 30 minutes Quality: Safe Use of Opioids Does Pt have an Active Cancer Diagnosis on the Problem List?: No Quality: Stroke Does the patient have a stroke diagnosis?: No Physical Exam Vital Signs: Vital Signs: Last Vital Signs Temp 98.0 F 05/29/22 11:55 Pulse 86 05/29/22 11:55 Resp 18 05/29/22 11:55 BP 147/69 H 05/29/22 11:55 Pulse Ox 96 05/29/22 04:00 O2 Del Method 05/29/22 04:00 BMI result Body Mass Index 33.3 Appearing in no acute distress head is normocephalic atraumatic eyes pupils are PERRLA sclera is anicteric mouth throat mucous membranes are intact and moist neck is supple no lymphadenopathy, no JVD noted lung sounds are clear to auscultation heart regular rate rhythm, clear S1, S2 positive bowel sounds, abdomen is soft, nontender neuro patient is alert x3, no focal deficits DS: Data Data Completed and Pending Labs on day of discharge: Laboratory Results - last 24 hr 05/28/22 05/28/22 05/29/22 15:30 19:43 06:51 Sodium 132 L Potassium 5.7 H D Chloride 99 Carbon Dioxide 22 Anion Gap 17 BUN 66 H Creatinine 3.08 H Estim Creat Clear Calc 31.5 Estimated GFR 21 POC Glucose 134 H 150 H Random Glucose 147 H Calcium 9.5 B-Natriuretic Peptide 05/29/22 05/29/22 05/29/22 06:51 07:14 10:41 Sodium Potassium Chloride Carbon Dioxide Anion Gap BUN Creatinine Estim Creat Clear Calc Estimated GFR POC Glucose 151 H 143 H Random Glucose Calcium B-Natriuretic Peptide 101 H 05/29/22 11:47 Sodium 133 L Potassium 5.1 Chloride 100 Carbon Dioxide 22 Anion Gap 16 BUN 64 H Creatinine 2.98 H Estim Creat Clear Calc 32.6 Estimated GFR 22 POC Glucose Random Glucose 114 Calcium 9.6 B-Natriuretic Peptide Discharge Plan Discharge Anticipated Discharge Date/Time: 05/29/22 13:56 Patient Disposition: Home Health Service Discharge Diagnosis: Diastolic heart failure Transaminitis mahad on CKD orthostatic hypotension Referrals: [facility] [Outside] - 1 Week Sarthak Spencer MD [Primary Care Provider] - 1 Week Oscar Moreno MD [Physician] - 1 Week (orthostatic hypotension ) Discharge Medications: New torsemide 20 mg Tablet 40 mg PO DAILY Qty: 60 0RF Protocol: Hold for SBP< HOLD for SBP < : 90 Continued clonazepam 0.5 mg tablet 0.5 mg PO TID PRN (Reason: anxiety) Qty: 90 5RF (DME) lancets [FreeStyle Lancets] 28 gauge misc See Rx Instructions .MEDSUPPLY Qty: 150 5RF Rx Instructions: 4 times a day gabapentin 300 mg capsule 300 mg PO BID Qty: 60 8RF cholecalciferol (vitamin D3) [D3-2000] 50 mcg (2,000 unit) capsule 50 mcg PO DAILY Qty: 30 11RF omega-3 acid ethyl esters 1 gram capsule 2 cap PO BID 30 Days Qty: 120 11RF (DME) FreeStyle John 14 Day Sensor Kit See Rx Instructions .Route Qty: 1 0RF Rx Instructions: As directed (DME) blood pressure monitor [Blood Pressure Kit] Kit See Rx Instructions .Route Qty: 1 0RF Rx Instructions: As directed Tradjenta 5 mg tablet 5 mg PO DAILY 30 Days Qty: 30 6RF venlafaxine 150 mg capsule,extended release 24hr 150 mg PO DAILY meclizine 25 mg tablet 25 mg PO Q6H PRN (Reason: Dizziness) trazodone 150 mg tablet 150 mg PO BEDTIME PRN (Reason: Sleep) insulin aspart U-100 [Novolog FlexPen U-100 Insulin] 100 unit/mL (3 mL) insulin pen 14 unit subcut TIDAC bupropion HCl 150 mg tablet extended release 24 hr 150 mg PO DAILY Toujeo Max U-300 SoloStar 300 unit/mL (3 mL) insulin pen 70 unit subcut DAILY Rx Instructions: in the morning nifedipine 30 mg Tablet Extended Release 24hr 60 mg PO DAILY Qty: 30 0RF Protocol: Hold for SBP< HOLD for SBP < : 90 (DME) Blood Pressure Cuff Misc See Rx Instructions .Route Qty: 1 0RF Rx Instructions: As directed multivitamin with folic acid [Tab-A-George] 400 mcg tablet 1 tab PO DAILY (DME) pen needle, diabetic [Ultracare Pen Needle] 32 gauge x 3/16 needle See Rx Instructions .ROUTE .MEDSUPPLY Qty: 50 Rx Instructions: As directed famotidine 20 mg tablet 20 mg PO BID Qty: 180 8RF metoclopramide HCl 5 mg tablet 5 mg PO QID Qty: 360 2RF simethicone 180 mg capsule 180 mg PO TID Qty: 90 1RF labetalol 200 mg tablet 200 mg PO BID Qty: 60 3RF (DME) pen needle, diabetic [BD Kacey 2nd Gen Pen Needle] 32 gauge x 5/32 needle See Rx Instructions .MEDSUPPLY Qty: 400 6RF Rx Instructions: 5 times a day Held losartan 50 mg tablet 50 mg PO DAILY Qty: 90 8RF Hold Instructions: Resume on 06/01/22. Discharge Orders: Discharge Order (Routine); Ordered 05/29/22 Ordered By: Brynn Mane Diet: Advance to usual diet Activity on Discharge: As tolerated Stand Alone Forms: Patient Portal Discharge page Other Ambulatory Orders: Basic Metabolic Panel (Routine) Timeframe: 2 Days Facility: [facility] - Location: Laboratory Ordered By: Brynn Mane Care Plan Goals: Some simple steps can help manage or prevent orthostatic hypotension. These include: * Wearing waist-high compression stockings.?These may help improve blood flow and reduce the symptoms of orthostatic hypotension. Wear them during the day, but take them off for bed and when lying down. * Getting plenty of fluids.?Keeping hydrated helps prevent symptoms of low blood pressure. Drink plenty of water before long periods of standing, or any activities that tend to trigger symptoms. * Avoiding alcohol.?Alcohol can worsen orthostatic hypotension, so limit or avoid it completely. * Increasing salt in the diet.?This must be done carefully and only after discussing it with a health care provider. Too much salt can cause blood pressure to increase beyond a healthy level, creating new health risks. * Eating small meals.?If blood pressure drops after eating, having small, low- carbohydrate meals might help. * Exercising.?Regular cardiovascular and strengthening exercises might help reduce symptoms of orthostatic hypotension. Avoid exercising in very hot, humid weather. * Moving and stretching in certain ways.?Stretch and flex calf muscles before sitting up. For symptoms, squeeze thighs together and squeeze stomach and buttock muscles. Squat, march in place or rise onto tiptoes. * Getting up slowly.?Move slowly from a lying to standing position. Also, when getting out of bed, sit on the edge of the bed for a minute before standing. * Raising the head of the bed.?Sleeping with the head of the bed slightly raised can help fight the effects of gravity. Health Concerns: Diastolic heart failure Transaminitis mahad on CKD orthostatic hypotension Plan of Treatment: Follow up with primary care provider Take all medications as prescribed Assessment: See discharge summary
[2022-05-29] MEDS: Heparin Sodium,Porcine 5,000 UNIT/ML VIAL 5000 UNIT SUBCUT (14:10)
--- NOTE | 2022-05-29 14:26 | MHC.CM.PN ---
Addendum entered by Nicole Maxwell 05/29/22 14:46: The patient has arranged for transportation home from his dtr. Original Note: IMM 05/29/22 Patient is discharged home today. [facility] will resume services. All discharge info has been sent thru [facility]. The agency was called and notified of pts discharge today. A VM was left for nursing. A call was place and message taken by the studio receptionist re lenora as well.
--- NOTE | 2022-05-29 15:35 | P.PNNP_ITS ---
Subjective Subjective Date of Service: 05/29/22 Interval history: Seen and examined, events noted Physical Exam Vital Signs: Vital Signs: Last Vital Signs Temp 98.0 F 05/29/22 11:55 Pulse 86 05/29/22 11:55 Resp 18 05/29/22 11:55 BP 147/69 H 05/29/22 11:55 Pulse Ox 96 05/29/22 04:00 O2 Del Method 05/29/22 04:00 BMI result Body Mass Index 33.3 Const: General: cooperative, comfortable and no acute distress [place] ation/consciousness: patient oriented x3 HEENT: Other: Unremarkable Head: Yes normal to inspection Eyes: General: appearance normal, both eyes and all related structures Neck: Neck: Yes normal visual inspection Chest: Chest palpation & inspection: normal inspection of the chest Resp: Other: Crackles bilaterally Effort & Inspection: normal respiratory effort Auscultation: clear to auscultation bilaterally Cardio: Palpation: normal PMI Rate: regular rate Rhythm: regular rhythm Heart sounds: S1 normal heart sound present, S2 normal heart sound present, no gallops, no murmurs and no rubs GI: Palpation (GI): Soft to palpation Auscultation: normal bowel sounds Back/Spine/Pelvis: Other: unremarkable Skin: General skin exam: no rashes or lesions noted Neuro: General: patient oriented x3 Cognition (Neuro): normal cognition Extrem: General: Yes normal to inspection and Yes no pedal edema Psych: Mental Status: mental status grossly normal Objective Data Labs 05/24/22 06:58 05/29/22 11:47 Labs: Laboratory Results - last 24 hr 05/28/22 05/28/22 05/29/22 15:30 19:43 06:51 Sodium 132 L Potassium 5.7 H D Chloride 99 Carbon Dioxide 22 Anion Gap 17 BUN 66 H Creatinine 3.08 H Estim Creat Clear Calc 31.5 Estimated GFR 21 POC Glucose 134 H 150 H Random Glucose 147 H Calcium 9.5 B-Natriuretic Peptide 05/29/22 05/29/22 05/29/22 06:51 07:14 10:41 Sodium Potassium Chloride Carbon Dioxide Anion Gap BUN Creatinine Estim Creat Clear Calc Estimated GFR POC Glucose 151 H 143 H Random Glucose Calcium B-Natriuretic Peptide 101 H 05/29/22 11:47 Sodium 133 L Potassium 5.1 Chloride 100 Carbon Dioxide 22 Anion Gap 16 BUN 64 H Creatinine 2.98 H Estim Creat Clear Calc 32.6 Estimated GFR 22 POC Glucose Random Glucose 114 Calcium 9.6 B-Natriuretic Peptide Microbiology Microbiology Results: Microbiology 05/24/22 00:00 Urine clean catch - Urine correia top Urine Culture - Final Procedures Date of Service Date of Service: 05/29/22 Assessment & Plan Assessment and plan (1) Diabetic nephropathy associated with type 2 diabetes mellitus: Status: Acute (2) CKD (chronic kidney disease) stage 4, GFR 15-29 ml/min: Status: Inactive (3) Acute diastolic (congestive) heart failure: Status: Acute (4) Diabetes mellitus with coincident hypertension: Status: Acute (5) Diabetic neuropathy associated with type 2 diabetes mellitus: Status: Acute Plan - Adv CKD:c/wDN/HTN renal dis -HFpEF: vol status ok now -Orthostatic Hypotension with supine HTN REC: cont to track renal func, adjust BP meds to avoid OH, cont RASi; arrange ABPM as outpt ok to d/c from renal standpoint--I will make f/u with us in 2-3 wks will follow with team Time Spent With Patient Time: Total time managing care of this patient today ____ minutes. Progress Note: Quality Stroke Does the patient have a stroke diagnosis?: No
== END 2022-05-29 16:00 | disposition home health service (06) | DRG 291 ==
LOC: HO.ED 22:31 → HO.EDOVER 23:56 → HO.IMC 05-24 16:44
PROVIDERS: Internal Medicine; Physician Assistant; Admitting Provider Internal Medicine; Emergency Provider Student in an Organized Health Care Education/Training Program; PCP Internal Medicine; Visit Provider Nurse Practitioner Acute Care
DX: I13.0 Hypertensive heart and chronic kidney disease with heart failure and stage 1 through stage 4 chronic kidney disease, or unspecified chronic kidney disease (principal); I50.31 Acute diastolic (congestive) heart failure; N18.30 Chronic kidney disease, stage 3 unspecified; E11.22 Type 2 diabetes mellitus with diabetic chronic kidney disease; E78.5 Hyperlipidemia, unspecified; I95.1 Orthostatic hypotension; E11.42 Type 2 diabetes mellitus with diabetic polyneuropathy; E66.9 Obesity, unspecified; Z68.33 Body mass index [BMI] 33.0-33.9, adult; Z20.822 Contact with and (suspected) exposure to COVID-19; Z88.1 Allergy status to other antibiotic agents; Z88.8 Allergy status to other drugs, medicaments and biological substances; Z79.4 Long term (current) use of insulin; Z79.899 Other long term (current) drug therapy
CPT/HCPCS: 36415; 71045; 80048; 80053; 80076; 81001; 82947; 83735; 83880; 84484; 85025; 87086; 87635; 93005; 93306; 99285; J1643; J1940; Q9957

== ENCOUNTER 2022-06-02 14:06 | Inpatient (IN) | payer OTHER, SELFPAY ==
[2022-06-02] VITALS (8 sets, daily range): BP systolic 95–149; BP diastolic 44–65; PULSE 54–81; RESP 13–20; TEMP 36.1–36.6; O2SAT 94–99; BMI 32.0
--- NOTE | ~2022-06-02 | XR_ITS ---
EXAMINATION: XR CHEST CLINICAL INFORMATION: Follow-up, cough COMPARISON: 05/23/2019 TECHNIQUE: Frontal view of the chest was obtained. FINDINGS: There is improved interstitial prominence and vascular redistribution. There is mild asymmetry with more prominent interstitial markings in the left lung. Cardiomediastinal silhouette is normal and there is no consolidation seen. XR/XR chest 1V IMPRESSION: Improvement. Residual interstitial lung disease on the left
--- NOTE | ~2022-06-02 | MR_ITS ---
EXAMINATION: MR BRAIN WITHOUT CONTRAST CLINICAL INFORMATION: Blurry vision, off balance COMPARISON: CT head without contrast, MRI of the brain 03/17/2016 TECHNIQUE: Multiplanar multisequence MR imaging of the brain was obtained without intravenous contrast. FINDINGS: There is no acute infarct on diffusion-weighted imaging. There is no intracranial hemorrhage on iron-sensitive imaging. No extra-axial collection or mass effect/herniation. Patchy periventricular and deep white matter T2 FLAIR hyperintensities appear progressed compared to MRI from 2016. No hydrocephalus. Mild generalized cerebral volume loss with commensurate sulcal and ventricular prominence. The major flow voids at the skull base are preserved. The midline structures are normal. The cerebellar tonsils are normally positioned. The craniocervical junction is normal. Marrow signal is within normal limits. The visualized soft tissues are without significant abnormality. No signal abnormality within the paranasal sinuses or within the mastoid air cells. MR/MR head/brain wo con IMPRESSION: 1. No acute intracranial abnormality. 2. Patchy periventricular and deep white matter T2 FLAIR hyperintensities appear progressed compared to MRI from 2016 and are nonspecific, most likely reflecting sequela of chronic microvascular ischemia although chronic demyelination could have a similar appearance.
--- NOTE | ~2022-06-02 | CT_ITS ---
EXAMINATION: CT HEAD WITHOUT CONTRAST (STROKE PROTOCOL) CLINICAL INFORMATION: Stroke protocol. Blurry vision filling of balance since 11:00 AM. COMPARISON: None TECHNIQUE: Contiguous axial imaging was performed from the skull base to vertex without intravenous administration of contrast. This CT examination was performed using dose optimization techniques as appropriate, variously including the following: *Automated exposure control *Adjustment of mA and/or kV according to patient size (this includes techniques or standardized protocols for targeted exams where dose is matched to indication/reason for exam; i.e. extremities or head) *Use of iterative reconstruction technique DLP: 695 mGy-cm FINDINGS: There is no acute intra-axial, extra-axial bleed, masses or midline shift. There is no acute infarction in evolution. T there is no edema. He lateral ventricles are symmetrical in size and configuration without enlargement. Bone windows reveal no calvarial abnormality. The paranasal sinuses are well-aerated. There is no scalp soft tissue abnormality. CT/CT head for stroke IMPRESSION: No acute intracranial process seen. This critical result was discussed with CATHERINE Augustin at 2:56 PM in ED. It was ascertained that the content and urgency of the report was understood at the time of direct communication.
--- NOTE | 2022-06-02 14:20 | ECG_ITS ---
Test Reason : WEAKNESS Blood Pressure : / mmHG Vent. Rate : 056 BPM Atrial Rate : 056 BPM P-R Int : 162 ms QRS Dur : 092 ms QT Int : 442 ms P-R-T Axes : 043 015 041 degrees QTc Int : 426 ms Sinus bradycardia Otherwise normal ECG When compared with ECG of 23-MAY-2022 15:24, Nonspecific T wave abnormality no longer evident in Inferior leads Referred By: Generic ED Physician Electronically Signed By:KHUSHBU ALICEA MD
[2022-06-02] MEDS: 0.9 % Sodium Chloride 1,000 ML 250 ML IVCONT (14:45)
[2022-06-02 14:47] LABS: Hematocrit 28.5 % (42.0-52.0); Hemoglobin 10.1 g/dl (14.0-18.0); Mean Corpuscular HGB Conc 35.4 g/dl (31.0-36.0); Mean Corpuscular Hemoglobin 29.6 pg (27.0-33.0); Mean Corpuscular Volume 83.6 fL (80.0-98.0); Mean Platelet Volume 9.8 fL (9.4-12.4); Platelet Count 352 X10*3/uL (160-400); Red Blood Count 3.41 X10*6/uL (4.60-5.80); Red Cell Distribution Width 11.9 % (11.0-16.0); White Blood Count 9.1 X10*3/uL (4.8-10.8)
[2022-06-02 14:54] LABS: INTERNATIONAL NORM RATIO 1.1 (0.9-1.1); Prothrombin Time 12.4 SEC (10.0-13.1)
[2022-06-02 15:03] LABS: Ethanol < 10 mg/dL
[2022-06-02 15:09] LABS: Anion Gap 21 (12-20); Blood Urea Nitrogen 83 mg/dL (9-16); Calcium 8.9 mg/dL (8.4-10.2); Carbon Dioxide 21 mmol/L (22-29); Chloride 91 mmol/L (96-108); Creatinine Clr Calc Pharmacy 22.6; Estimated Glomerular Filt Rate 15; Glucose Random 146 mg/dL (60-115); Magnesium 1.7 mg/dL (1.6-2.6); Sodium 128 mmol/L (135-145)
[2022-06-02 15:10] LABS: B Type Natriuretic Peptide 33 pg/mL (<100)
[2022-06-02 15:11] LABS: Troponin-I High Sensitivity 8.3 ng/L (<3.5-35.0)
[2022-06-02 15:24] LABS: Influenza A PCR NEGATIVE (Negative); Influenza B PCR NEGATIVE (Negative); Resp Syncy Virus RNA Qual PCR NEGATIVE (Negative); SARS COV2 PCR INHOUSE NEGATIVE (Negative)
--- NOTE | 2022-06-02 15:38 | ED.DIZZY ---
HPI - Dizziness General Chief Complaint: Weakness Stated Complaint: Dizzy, blurry vision, weak per EMS Time Seen by Provider: 06/02/22 14:27 Source: patient, family (Son at bedside), EMS and old records reviewed Mode of arrival: EMS Limitations: no limitations History of Present Illness HPI Narrative: 56yoM with a PMHx of DMII, GARCIA, HTN, HLD, CKD stage III, GERD, sleep apnea, vitamin-D deficiency and depression who is presenting to the ER with son at bedside with complaints of sudden onset of generalized weakness, dizziness and feeling lightheaded/dizzy where he feels like he is off-balance that started around 11:00 prior to arrival while he was just laying in bed. He reports that he did not wake up like this he was trying to take a nap. Son reports that he felt like he had a slurred speech prior to arrival although that has resolved. He was noted to have low heart rate and low blood pressure upon arrival although he reports that he did take his medications prior to arrival. He denies any recent falls or head trauma, headaches, paresthesias, focal weakness, nasal contrast/rhinorrhea, sore throat, trouble swallowing or breathing, chest pain or shortness of breath, dyspnea on exertion, orthopnea, palpitations, paresthesias, rashes, nausea/vomiting/diarrhea constipation, black or bloody stools, flank pain, abdominal pain, any changes in his medications or any other symptoms complaints or concerns at this time. MD elicited complaint: dizziness, lightheadedness and other (Blurry vision) Pertinent past history: other (DM, HTN, CKD stage III, ) Onset (ago): hour(s) (Started at 11:00 prior to arrival) Timing: sudden onset and constant Severity: mild Description: lightheadedness and off-balance Context: at rest (While he was laying down) History of similar symptoms: No Exacerbating factors: nothing Relieving factors: nothing Associated symptoms: other (Blurry vision) Associated neuro symptoms: vision changes Stroke scale total: 0 Related Data Home Medications Medication Instructions Recorded Confirmed venlafaxine 150 mg 150 mg PO DAILY 10/30/21 05/24/22 capsule,extended release 24 hr multivitamin with folic acid 400 1 tab PO DAILY 03/06/22 05/24/22 mcg tablet (Tab-A-George) pen needle, diabetic 32 gauge x #50 ea 03/06/22 04/16/2206/14 (Ultracare Pen Needle) bupropion HCl 150 mg 24 hr tablet, 150 mg PO DAILY 05/16/22 05/24/22 extended release insulin aspart U-100 100 unit/mL 14 unit subcut TIDAC 05/16/22 05/24/22 (3 mL) subcutaneous pen (Novolog FlexPen U-100 Insulin aspart) insulin glargine U-300 conc 300 70 unit subcut DAILY 05/16/22 05/24/22 unit/mL (3 mL) subcutaneous pen (Toujeo Max U-300 SoloStar) meclizine 25 mg tablet 25 mg PO Q6H PRN Dizziness 05/16/22 05/24/22 trazodone 150 mg tablet 150 mg PO BEDTIME PRN Sleep 05/16/22 05/24/22 amlodipine 10 mg tablet 10 mg PO DAILY 05/31/22 furosemide 20 mg tablet 20 mg PO BID 05/31/22 Previous Rx's Medication Instructions Recorded clonazepam 0.5 mg tablet 0.5 mg PO TID PRN anxiety #90 tabs 01/31/21 lancets 28 gauge (FreeStyle #150 ea 05/12/21 Lancets) miscellaneous medical supply #1 ea 05/25/21 (Blood Pressure Cuff) pen needle, diabetic 32 gauge x #400 ea 08/11/21 (BD Kacey 2nd Gen Pen Needle) gabapentin 300 mg capsule 300 mg PO BID #60 caps 08/25/21 cholecalciferol (vitamin D3) 50 50 mcg PO DAILY #30 caps 08/30/21 mcg (2,000 unit) capsule (D3-2000) omega-3 acid ethyl esters 1 gram 2 cap PO BID 30 days #120 caps 09/04/21 capsule flash glucose sensor (FreeStyle #1 ea 04/10/22 John 14 Day Sensor kit) labetalol 200 mg tablet 200 mg PO BID #60 tabs 04/16/22 blood pressure monitor (Blood #1 ea 04/24/22 Pressure Kit) losartan 50 mg tablet 50 mg PO DAILY #90 tabs 04/25/22 famotidine 20 mg tablet 20 mg PO BID #180 tabs 05/01/22 metoclopramide HCl 5 mg tablet 5 mg PO QID #360 tabs 05/01/22 simethicone 180 mg capsule 180 mg PO TID #90 caps 05/01/22 linagliptin 5 mg tablet (Tradjenta) 5 mg PO DAILY 30 days #30 tabs 05/16/22 nifedipine 30 mg tablet,extended 60 mg PO DAILY #30 tabs 05/21/22 release 24 hr torsemide 20 mg tablet 40 mg PO DAILY #60 tabs 05/29/22 Allergies Allergy/AdvReac Type Severity Reaction Status Date / Time cephalexin [From KEFLEX] Allergy Mild ITCHY Verified 05/31/22 14:14 THROAT lisinopril [LISINOPRIL] Allergy Unknown SWELLING Verified 05/31/22 14:14 COUGH Review of Systems Review of Systems: Constitutional : No Fever, No Chills, No Night Sweats, No Fatigue, No Malaise ENT/Mouth : No Ear Pain, No Nasal Congestion, No Sinus Pain, No sore throat, No Rhinorrhea Eyes: + Blurry Vision, No Eye Pain, No Swelling, No Redness, No Foreign Body, No Discharge Cardiovascular : No Chest Pain, No SOB, No Dyspnea on Exertion, No Orthopnea, No Palpitations Respiratory : No Cough, No Sputum, No Wheezing, No Dyspnea Gastrointestinal : No Nausea, No Vomiting, No Diarrhea, No Constipation, No abdominal Pain, No Hematochezia, No Melena Genitourinary : No Dysuria, No Urinary Frequency, No Urinary Incontinence, No Urgency, No Flank Pain Musculoskeletal : No joint pain, No Myalgias Skin : No lacerations Neuro : + dizziness, No Focal weakness, no general weakness, No Numbness, No Paresthesias, No Loss of Consciousness, No Headache Yes all other systems are reviewed and are negative [facility] Past Medical History Attestation statement: The following information was validated with the patient. 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 Social History Social History Household Members: Family Household Members Other:: SISTER Housing: Apartment Do you presently have visiting nurse or other home services: No Alcohol intake: never Patient Tobacco Use Status: Never used Tobacco Smoked in Last 30 Days: No e-Cigarette/Vaping Use: Never Used Second Hand Smoke Exposure: Yes (HISTORY OF SECOND HAND SMOKE EXPOSURE) Use of substances other than those prescribed or required for medical reasons: No Advance Directives: Yes Advance Directives on File: Yes Advance Directives Date on File: 05/05/20 service: No Current occupational status: disabled Current occupation: right handed Cognitive needs: No Hearing needs: No Vision needs: No Physical Exam Vital Signs: Vital Signs: Last Vital Signs Temp 97.9 F 06/02/22 14:14 Pulse 54 06/02/22 15:32 Resp 13 06/02/22 15:32 BP 105/51 L 06/02/22 15:32 Pulse Ox 94 06/02/22 15:32 O2 Del Method 06/02/22 15:32 BMI result Body Mass Index 32.0 Vital signs have been reviewed as normal and appeared to be correct. Blood pressure 95/44. Heart rate normal. Respiration rate normal. Temperature normal. Oxygen saturation normal. Appearance: Alert. Oriented X3. No acute distress. Head: Normal external exam. Normocephalic. Atraumatic. Able to rotate head bilaterally. Eyes: PERRLA. EOMI. No nystagmus noted. Conjunctiva and sclera normal. Eyelids normal. Corneal reflex normal. ENT: EAC normal. TM's Normal. Hearing normal. Pharynx normal. Uvula midline. tongue midline. Moist mucous membranes. No trismus noted. No drooling noted. No muffled voice noted. No nystagmus noted. Neck: Normal inspection. Neck supple. FROM. No adenopathy. Trachea midline. Thyroid Normal. No meningeal signs. No neck mass noted. CVS: Normal heart rate and rhythm. Heart sound normal. No murmurs noted. Pulses normal throughout. Respiratory: No respiratory distress. Painless inspiration. Breath sounds normal. No wheezes/rales/rhonchi noted. Chest nontender. No accessory muscle usage noted or decreased air movement noted. Abdomen: Soft and nontender. Bowel sounds normal in all 4 quadrants. No distention noted. No organomegaly noted. No visible injury noted. Back: No CVA tenderness. Full range of motion noted. Skin: Skin warm and dry. Normal skin color. Normal skin turgor. No rashes/lesions/lacerations noted. Extremities: No lower extremity edema. Extremities exhibit normal range of motion. Extremities nontender. Able to shrug shoulders bilaterally and keep up against resistance. Neuro: Oriented X 3. No motor deficit. No sensory deficit. Reflexes normal. Moving all extremities. No focal motor deficits. Cranial nerves II-XI intact bilaterally. Facial strength normal. Normal cognition. Speech normal. Gait normal. Strength 5/5 throughout. No pronator drift. No tremor noted. No fasciculations noted. No rigidity noted. Muscle tone normal throughout. No asterixis noted. [id number] test normal. Heel to valladares test normal. Tandem gait normal. Does not sway with eyes open. Romberg test negative. Rapid alternating movement upper extremity normal. Rapid alternating movement lower extremity normal. Hand drop from overhead Misses face. NIHSS score 0. Course Course Course Narrative: 14:26pm - 56yoM with a PMHx of DMII, GARCIA, HTN, HLD, CKD stage III, GERD, sleep apnea, vitamin-D deficiency and depression who is presenting to the ER with son at bedside with complaints of sudden onset of generalized weakness, dizziness and feeling lightheaded/dizzy where he feels like he is off-balance that started around 11:00 prior to arrival while he was just laying in bed. He reports that he did not wake up like this he was trying to take a nap. Son reports that he felt like he had a slurred speech prior to arrival although that has resolved. He was noted to have low heart rate and low blood pressure upon arrival although he reports that he did take his medications prior to arrival. This patient presents with symptoms concerning for acute CVA versus TIA versus electrolyte abnormality. Other items on the differential include dissection, AMI, hypoglycemia or other metabolic derangement such as hepatic/uremic encephalopathy, medication side effect. On exam patient is alert oriented x3. No focal neuro deficits are noted. NIH SS score is 0. Patient has non disabling symptoms therefore would not be a tPA candidate at this time. Plan: Will obtain labs, CT scan of brain, chest x-ray, UA, EKG, MRI of brain, orthostatic vitals, visual acuity. Provide IV fluids and re-evaluate Reevaluation(s) Reevaluation #1: Labs reviewed - mild baseline anemia which is similar compared to prior with an H&H of 10.1/28.5 - hyponatremia at 128 - chloride 91 - carbon dioxide 21 - anion gap 21 - BUN 83 baseline is usually 50-60 - creatinine 4.21 baseline is usually 3.0 - random glucose 146 - troponin 8.3 - patient negative for COVID/RSV/flu Otherwise all other labs are within normal limits Imaging - CT scan of brain negative for any intracranial process. - chest x-ray revealed improved residual interstitial lung disease on the left otherwise no acute processes are noted Awaiting MRI of brain will re-evaluate Time: 16:14 Reevaluation #2: MRI of brain negative for intracranial abnormality revealed chronic microvascular ischemia although chronic demyelination could have a similar appearance. Therefore at this time will plan to admit for worsening CKD and mild hyponatremia. Discussing this case with the hospitalist Dr. Mcneal who admit at this time. Time: 17:03 Medications Administered Discontinued Medications Generic Name Dose Route Start Last Admin Trade Name Freq PRN Reason Stop Dose Admin Cyclobenzaprine HCl 10 mg 06/02/22 17:16 06/02/22 17:28 Cyclobenzaprine Hcl 10 Mg Tablet PO 06/02/22 17:17 10 mg ONCE ONE Administration Sodium Chloride 1,000 mls @ 999 mls/hr 06/02/22 14:30 06/02/22 14:45 Ns IVCONT 06/02/22 15:30 250 mls/hr .Q1H1M RADHA Administration Medical Decision Making Admission/Observation Consideration of admission/observation: Escalation of care including admission/observation considered (Patient will need to be admitted for worsening CKD and mild hyponatremia) Consult Healthcare Provider Management of the patient was discussed with: Hospitalist (Discussing this case with the hospitalist Dr. Mcneal) Lab Data MDM Lab Attestation statement: I reviewed the patient's lab results. 06/02/22 14:40 06/02/22 14:40 Labs: Lab Results 06/02/22 06/02/22 06/02/22 Range/Units 14:40 14:40 14:40 WBC 9.1 (4.8-10.8) X10*3/uL RBC 3.41 L (4.60-5.80) X10*6/uL Hgb 10.1 L (14.0-18.0) g/dl Hct 28.5 L (42.0-52.0) % MCV 83.6 (80.0-98.0) fL MCH 29.6 (27.0-33.0) pg MCHC 35.4 (31.0-36.0) g/dl RDW 11.9 (11.0-16.0) % Plt Count 352 (160-400) X10*3/uL MPV 9.8 (9.4-12.4) fL Absolute Nucleated RBC 0.000 (0.0-0.012) X10*3/uL Nucleated RBC % (auto) 0.0 (0.0-0.2) /100WBC PT (10.0-13.1) SEC INR (0.9-1.1) Sodium 128 L (135-145) mmol/L Potassium 5.0 (3.3-5.1) mmol/L Chloride 91 L (96-108) mmol/L Carbon Dioxide 21 L (22-29) mmol/L Anion Gap 21 H (12-20) BUN 83 H (9-16) mg/dL Creatinine 4.21 H* (0.5-1.4) mg/dL Estim Creat Clear Calc 22.6 Estimated GFR 15 Random Glucose 146 H (60-115) mg/dL Calcium 8.9 D (8.4-10.2) mg/dL Magnesium 1.7 (1.6-2.6) mg/dL Troponin I High Sens 8.3 (<3.5-35.0) ng/L B-Natriuretic Peptide (<100) pg/mL Ethyl Alcohol mg/dL Influenza Type A (PCR) (Negative) Influenza Type B (PCR) (Negative) RSV RNA Qual (PCR) (Negative) SARS-CoV-2 RNA (RT-PCR) (Negative) 06/02/22 06/02/22 06/02/22 Range/Units 14:40 14:40 14:40 WBC (4.8-10.8) X10*3/uL RBC (4.60-5.80) X10*6/uL Hgb (14.0-18.0) g/dl Hct (42.0-52.0) % MCV (80.0-98.0) fL MCH (27.0-33.0) pg MCHC (31.0-36.0) g/dl RDW (11.0-16.0) % Plt Count (160-400) X10*3/uL MPV (9.4-12.4) fL Absolute Nucleated RBC (0.0-0.012) X10*3/uL Nucleated RBC % (auto) (0.0-0.2) /100WBC PT 12.4 (10.0-13.1) SEC INR 1.1 (0.9-1.1) Sodium (135-145) mmol/L Potassium (3.3-5.1) mmol/L Chloride (96-108) mmol/L Carbon Dioxide (22-29) mmol/L Anion Gap (12-20) BUN (9-16) mg/dL Creatinine (0.5-1.4) mg/dL Estim Creat Clear Calc Estimated GFR Random Glucose (60-115) mg/dL Calcium (8.4-10.2) mg/dL Magnesium (1.6-2.6) mg/dL Troponin I High Sens (<3.5-35.0) ng/L B-Natriuretic Peptide 33 (<100) pg/mL Ethyl Alcohol < 10 mg/dL Influenza Type A (PCR) (Negative) Influenza Type B (PCR) (Negative) RSV RNA Qual (PCR) (Negative) SARS-CoV-2 RNA (RT-PCR) (Negative) 06/02/22 Range/Units 14:41 WBC (4.8-10.8) X10*3/uL RBC (4.60-5.80) X10*6/uL Hgb (14.0-18.0) g/dl Hct (42.0-52.0) % MCV (80.0-98.0) fL MCH (27.0-33.0) pg MCHC (31.0-36.0) g/dl RDW (11.0-16.0) % Plt Count (160-400) X10*3/uL MPV (9.4-12.4) fL Absolute Nucleated RBC (0.0-0.012) X10*3/uL Nucleated RBC % (auto) (0.0-0.2) /100WBC PT (10.0-13.1) SEC INR (0.9-1.1) Sodium (135-145) mmol/L Potassium (3.3-5.1) mmol/L Chloride (96-108) mmol/L Carbon Dioxide (22-29) mmol/L Anion Gap (12-20) BUN (9-16) mg/dL Creatinine (0.5-1.4) mg/dL Estim Creat Clear Calc Estimated GFR Random Glucose (60-115) mg/dL Calcium (8.4-10.2) mg/dL Magnesium (1.6-2.6) mg/dL Troponin I High Sens (<3.5-35.0) ng/L B-Natriuretic Peptide (<100) pg/mL Ethyl Alcohol mg/dL Influenza Type A (PCR) NEGATIVE (Negative) Influenza Type B (PCR) NEGATIVE (Negative) RSV RNA Qual (PCR) NEGATIVE (Negative) SARS-CoV-2 RNA (RT-PCR) NEGATIVE (Negative) Independent Interpretation I performed an independent interpretation of an: EKG (Sinus bradycardia with ventricular rate of 56 with a normal NH interval normal QRS duration normal QT/QTC interval. No acute ischemic change are noted.) and CT Scan (I reviewed the CT scan results and agreeable with radiology's report patient understand results son at bedside also understands results) Interpretation: MRI of brain reviewed by myself and I agree with the radiologist's report/reading discussed with patient's son at bedside they understand the results Radiology Impression Discussion of test interpretation with radiology: I have reviewed the radiologist's reading. Radiologist Impression: DLP: 695 mGy-cm FINDINGS: There is no acute intra-axial, extra-axial bleed, masses or midline shift. There is no acute infarction in evolution. T there is no edema. He lateral ventricles are symmetrical in size and configuration without enlargement. Bone windows reveal no calvarial abnormality. The paranasal sinuses are well-aerated. There is no scalp soft tissue abnormality. CT/CT head for stroke IMPRESSION: No acute intracranial process seen. ? This critical result was discussed with CATHERINE Augustin at 2:56 PM in ED. It was ascertained that the content and urgency of the report was understood at the time of direct communication. FINDINGS: There is improved interstitial prominence and vascular redistribution. There is mild asymmetry with more prominent interstitial markings in the left lung. Cardiomediastinal silhouette is normal and there is no consolidation seen. XR/XR chest 1V IMPRESSION: Improvement. Residual interstitial lung disease on the left FINDINGS: There is no acute infarct on diffusion-weighted imaging.? There is no intracranial hemorrhage on iron-sensitive imaging.? No extra-axial collection or mass effect/herniation.? Patchy periventricular and deep white matter T2 FLAIR hyperintensities appear progressed compared to MRI from 2016. No hydrocephalus.? Mild generalized cerebral volume loss with commensurate sulcal and ventricular prominence. The major flow voids at the skull base are preserved. The midline structures are normal.? The cerebellar tonsils are normally positioned.? The craniocervical junction is normal.? Marrow signal is within normal limits. The visualized soft tissues are without significant abnormality.? No signal abnormality within the paranasal sinuses or within the mastoid air cells. MR/MR head/brain wo con IMPRESSION: ? 1.? No acute intracranial abnormality. ? 2.? Patchy periventricular and deep white matter T2 FLAIR hyperintensities appear progressed compared to MRI from 2016 and are nonspecific, most likely reflecting sequela of chronic microvascular ischemia although chronic demyelination could have a similar appearance. Independent Historian Clinical information obtained from an independent historian. History obtained from or confirmed by: Other (Patient and son at bedside) External Record Review External record reviewed: Inpatient record, Office record, Outpatient record, Prior outpatient labs, Prior outpatient radiology, Primary care record and Outside ED record I reviewed all the patient's prior labs/imaging and admission along with notes from other providers that are accessible in our chart Critical Care Time Critical Care Time Critical Care Time: Yes Total Critical Care Time: 60 Attestation: I personally attest to this time spent taking care of the patient Discharge Plan Discharge Clinical Impression: CKD (chronic kidney disease), Acute hyponatremia Patient Disposition: Admitted As Inpatient Prescriptions: No Action clonazepam 0.5 mg tablet 0.5 mg PO TID PRN (Reason: anxiety) Qty: 90 5RF (DME) lancets [FreeStyle Lancets] 28 gauge misc See Rx Instructions .MEDSUPPLY Qty: 150 5RF Rx Instructions: 4 times a day gabapentin 300 mg capsule 300 mg PO BID Qty: 60 8RF cholecalciferol (vitamin D3) [D3-2000] 50 mcg (2,000 unit) capsule 50 mcg PO DAILY Qty: 30 11RF omega-3 acid ethyl esters 1 gram capsule 2 cap PO BID 30 Days Qty: 120 11RF (DME) FreeStyle John 14 Day Sensor Kit See Rx Instructions .Route Qty: 1 0RF Rx Instructions: As directed (DME) blood pressure monitor [Blood Pressure Kit] Kit See Rx Instructions .Route Qty: 1 0RF Rx Instructions: As directed losartan 50 mg tablet 50 mg PO DAILY Qty: 90 8RF Hold Instructions: Resume on 06/01/22. Tradjenta 5 mg tablet 5 mg PO DAILY 30 Days Qty: 30 6RF venlafaxine 150 mg capsule,extended release 24hr 150 mg PO DAILY meclizine 25 mg tablet 25 mg PO Q6H PRN (Reason: Dizziness) trazodone 150 mg tablet 150 mg PO BEDTIME PRN (Reason: Sleep) insulin aspart U-100 [Novolog FlexPen U-100 Insulin] 100 unit/mL (3 mL) insulin pen 14 unit subcut TIDAC bupropion HCl 150 mg tablet extended release 24 hr 150 mg PO DAILY Toujeo Max U-300 SoloStar 300 unit/mL (3 mL) insulin pen 70 unit subcut DAILY Rx Instructions: in the morning nifedipine 30 mg Tablet Extended Release 24hr 60 mg PO DAILY Qty: 30 0RF Protocol: Hold for SBP< HOLD for SBP < : 90 torsemide 20 mg Tablet 40 mg PO DAILY Qty: 60 0RF Protocol: Hold for SBP< HOLD for SBP < : 90 (DME) Blood Pressure Cuff Misc See Rx Instructions .Route Qty: 1 0RF Rx Instructions: As directed furosemide 20 mg tablet 20 mg PO BID amlodipine 10 mg tablet 10 mg PO DAILY multivitamin with folic acid [Tab-A-George] 400 mcg tablet 1 tab PO DAILY (DME) pen needle, diabetic [Ultracare Pen Needle] 32 gauge x 3/16 needle See Rx Instructions .ROUTE .MEDSUPPLY Qty: 50 Rx Instructions: As directed famotidine 20 mg tablet 20 mg PO BID Qty: 180 8RF metoclopramide HCl 5 mg tablet 5 mg PO QID Qty: 360 2RF simethicone 180 mg capsule 180 mg PO TID Qty: 90 1RF labetalol 200 mg tablet 200 mg PO BID Qty: 60 3RF (DME) pen needle, diabetic [BD Kacey 2nd Gen Pen Needle] 32 gauge x / needle See Rx Instructions .MEDSUPPLY Qty: 400 6RF Rx Instructions: 5 times a day
[2022-06-02] MEDS: Cyclobenzaprine HCl 10 MG TABLET PO (17:28)
--- NOTE | 2022-06-02 17:55 | PM.IMHP ---
History of Present Illness Date of Service: 06/02/22 Attending physician on admission: Med Mcneal Chief Complaint: lightheadedness dizziness and blurred vision 56-year-old gentleman with past medical history of diabetes mellitus, Yang, hypertension, hyperlipidemia, chronic kidney disease, sleep apnea and depression recently discharged from [facility] [place] after being treated for new onset diastolic congestive heart failure was started on diuretics and arbs, presented to ED today due to complaint of generalized weakness, dizziness lightheadedness and off balance since this morning, symptoms started while he was lying down, he also felt off balance, son noted that he had slurred speech patient was unable to hold his neck up he denies weakness numbness of extremities, no history of fall trauma denies headache denies URI symptoms of cough, shortness of breath, no fevers, no chills, no recent episode of nausea, vomiting ,diarrhea, no urinary symptoms of urgency, frequency, workup in the emergency room revealed worsening creatinine, and mild hyponatremia, with sodium of 128, CT brain showed no acute intracranial process, chest x-ray showed improvement with mild residual interstitial lung disease on the left, otherwise no acute process, MRI brain showed no acute intracranial abnormality, showed chronic microvascular ischemia, patient treated in the emergency room on with 1 L of IV fluid and now being admitted to [facility] [place] due to worsening renal function and hyponatremia. Review of Systems Review of Systems: General no headache, dizziness and lightheadedness resolved, no fever chills. CVS no chest pain, no palpitation. Respiratory chronic intermittent cough no change, no shortness of breath. Gastrointestinal no nausea no vomiting, no abdominal pain no urinary symptoms of urgency, no frequency Yes all other systems are reviewed and are negative FORMERLY [facility] Medical History Anxiety Chronic hyperglycemia CKD (chronic kidney disease) stage 3, GFR 30-59 ml/min CKD (chronic kidney disease) stage 4, GFR 15-29 ml/min Depression Diabetes Diabetes type 2, uncontrolled Diabetic nephropathy associated with type 2 diabetes mellitus Diabetic neuropathy associated with type 2 diabetes mellitus Dyslipidemia Essential hypertension GERD (gastroesophageal reflux disease) Hepatitis High cholesterol Hypercalcemia Hyperlipidemia Hypertension penitentiary (current) use of insulin Metabolic acidosis Neuropathy Obesity Obesity (BMI 30-39.9) Severe depression Sleep apnea Type 2 diabetes mellitus with obesity Vitamin D deficiency Family History Father Diabetes Mother No problems noted. Surgical History H/O colonoscopy History of esophagogastroduodenoscopy (EGD) Hx of arthroscopy of knee Hx of arthroscopy of right knee Social History Household Members: Family Household Members Other:: SISTER Housing: Apartment Do you presently have visiting nurse or other home services: No Alcohol intake: never Patient Tobacco Use Status: Never used Tobacco Smoked in Last 30 Days: No e-Cigarette/Vaping Use: Never Used Second Hand Smoke Exposure: Yes (HISTORY OF SECOND HAND SMOKE EXPOSURE) Use of substances other than those prescribed or required for medical reasons: No Advance Directives: Yes Advance Directives on File: Yes Advance Directives Date on File: 05/05/20 service: No Current occupational status: disabled Current occupation: right handed Cognitive needs: No Hearing needs: No Vision needs: No Meds Allergies Allergy/AdvReac Type Severity Reaction Status Date / Time cephalexin [From KEFLEX] Allergy Mild ITCHY Verified 05/31/22 14:14 THROAT lisinopril [LISINOPRIL] Allergy Unknown SWELLING Verified 05/31/22 14:14 COUGH Active Medications: Current Medications Acetaminophen (Acetaminophen 325 Mg Tablet) 650 mg PO Q6H PRN PRN Reason: Pain, Mild (Pain Scale 1-3) Heparin Sodium (Porcine) (Heparin Sodium,Porcine 5,000 Unit/Ml Vial) 5,000 unit SUBCUT Q12H [facility] Melatonin (Melatonin 3 Mg Tablet) 6 mg PO BEDTIME PRN PRN Reason: Insomnia Ondansetron HCl (Ondansetron Hcl 4 Mg/2 Ml Vial) 4 mg IVPUSH Q8H PRN PRN Reason: Nausea and Vomiting Pharmacy Consult (Consult Rx Perform Med Rec) 1 each MISCELLANE ONCE PRN PRN Reason: Consult order Sodium Chloride (0.9 % Sodium Chloride Flush 3 Ml Syringe) 3 ml IVFLUSH QSHIFT [facility] Home Medications Medication Instructions Recorded Confirmed Last Taken Type venlafaxine 150 mg 150 mg PO DAILY 10/30/21 05/24/22 05/24/22 History capsule,extended release 24 hr multivitamin with folic acid 400 1 tab PO DAILY 03/06/22 05/24/22 05/24/22 History mcg tablet (Tab-A-George) pen needle, diabetic 32 gauge x #50 ea 03/06/22 04/16/22 Unknown History 06/14 (Ultracare Pen Needle) bupropion HCl 150 mg 24 hr tablet, 150 mg PO DAILY 05/16/22 05/24/22 05/24/22 History extended release insulin aspart U-100 100 unit/mL 14 unit subcut TIDAC 05/16/22 05/24/22 05/24/22 History (3 mL) subcutaneous pen (Novolog FlexPen U-100 Insulin aspart) insulin glargine U-300 conc 300 70 unit subcut DAILY 05/16/22 05/24/22 05/24/22 History unit/mL (3 mL) subcutaneous pen (Toujeo Max U-300 SoloStar) meclizine 25 mg tablet 25 mg PO Q6H PRN Dizziness 05/16/22 05/24/22 05/24/22 History trazodone 150 mg tablet 150 mg PO BEDTIME PRN Sleep 05/16/22 05/24/22 05/24/22 History Physical Exam Vital Signs and Narrative: Vital Signs: Last Vital Signs Temp 97.9 F 06/02/22 14:14 Pulse 54 06/02/22 15:32 Resp 13 06/02/22 15:32 BP 105/51 L 06/02/22 15:32 Pulse Ox 94 06/02/22 15:32 O2 Del Method 06/02/22 15:32 BMI result Body Mass Index 32.0 Const: Other: General awake alert x3 sitting comfortably,in no acute distress. Neck supple no JVD. CVS regular rate rhythm, Respiratory lungs clear to auscultation, no respiratory distress, no wheeze, no rhonchi. Gastrointestinal abdomen soft, nontender, bowel sounds audible, no guarding , no rigidity. Extremities no edema. Neuro nonfocal ,speech clear. Skin no rash psych appropriate affect Results Labs 06/02/22 14:40 06/02/22 14:40 Labs: Laboratory Results - last 24 hr 06/02/22 06/02/22 06/02/22 14:40 14:40 14:40 MCV 83.6 MCH 29.6 MCHC 35.4 RDW 11.9 Plt Count 352 MPV 9.8 Absolute Nucleated RBC 0.000 Nucleated RBC % (auto) 0.0 PT INR Anion Gap 21 H Estim Creat Clear Calc 22.6 Estimated GFR 15 Random Glucose 146 H Calcium 8.9 D Magnesium 1.7 Troponin I High Sens 8.3 B-Natriuretic Peptide Ethyl Alcohol Influenza Type A (PCR) Influenza Type B (PCR) RSV RNA Qual (PCR) SARS-CoV-2 RNA (RT-PCR) 06/02/22 06/02/22 06/02/22 14:40 14:40 14:40 MCV MCH MCHC RDW Plt Count MPV Absolute Nucleated RBC Nucleated RBC % (auto) PT 12.4 INR 1.1 Anion Gap Estim Creat Clear Calc Estimated GFR Random Glucose Calcium Magnesium Troponin I High Sens B-Natriuretic Peptide 33 Ethyl Alcohol < 10 Influenza Type A (PCR) Influenza Type B (PCR) RSV RNA Qual (PCR) SARS-CoV-2 RNA (RT-PCR) 06/02/22 14:41 MCV MCH MCHC RDW Plt Count MPV Absolute Nucleated RBC Nucleated RBC % (auto) PT INR Anion Gap Estim Creat Clear Calc Estimated GFR Random Glucose Calcium Magnesium Troponin I High Sens B-Natriuretic Peptide Ethyl Alcohol Influenza Type A (PCR) NEGATIVE Influenza Type B (PCR) NEGATIVE RSV RNA Qual (PCR) NEGATIVE SARS-CoV-2 RNA (RT-PCR) NEGATIVE Imaging Radiologist's Impressions: Impressions Head CT 06/02/22 14:51 IMPRESSION: No acute intracranial process seen. This critical result was discussed with CATHERINE Aguustin at 2:56 PM in ED. It was ascertained that the content and urgency of the report was understood at the time of direct communication. Chest X-Ray 06/02/22 14:55 IMPRESSION: Improvement. Residual interstitial lung disease on the left Brain MRI 06/02/22 16:13 IMPRESSION: 1. No acute intracranial abnormality. 2. Patchy periventricular and deep white matter T2 FLAIR hyperintensities appear progressed compared to MRI from 2016 and are nonspecific, most likely reflecting sequela of chronic microvascular ischemia although chronic demyelination could have a similar appearance. Assessment and Plan (1) Acute hyponatremia: Status: Acute (2) Acute renal failure superimposed on stage 4 chronic kidney disease: Status: Acute Plan 56-year-old gentleman with past medical history of chronic kidney disease stage 4, diabetic nephropathy, diastolic congestive heart failure, diabetes mellitus recently discharged from [facility] [place] after treated for new onset diastolic congestive heart failure and was discharged home on torsemide and was started back on losartan 50 mg since June 01 presented with lightheadedness dizziness blurred vision and diagnosed to have mild hyponatremia and acute on chronic kidney disease stage 4. Patient will be admitted to hospital for close monitoring of renal function. Acute on chronic kidney disease stage 4 likely due to recent use of diuretics and losartan, noted to have soft blood pressures on arrival patient received 1 L of IV fluid in the ER, will hold diuretics and nephrotoxins, avoid hypotension, follow renal function consult nephrology dizziness/blurred vision likely due to dehydration, CT brain and MRI brain showed no acute stroke, all symptoms resolved. mild hyponatremia, intermittent likely related to kidney disease and diuretics, will hold diuretics follow labs at a.m. history of diastolic congestive heart failure no acute exacerbation, hold diuretics diabetes mellitus on insulin will place on insulin sliding scale, diabetic diet, resume home medications, monitor point of care q.i.d. diabetic neuropathy continue gabapentin History of depression anxiety/conversion disorder continue home medications. history of orthostatic hypotension on labetalol 200 mg b.i.d., losartan 50 mg daily, nifedipine 60 mg daily , soft blood pressures this morning hold blood pressure medication and resume gradually as BP allows mild obesity, counseling done recommend low-calorie diet DVT prophylaxis subQ heparin full code patient will need 2 night inpatient stay for acute on chronic kidney disease and hyponatremia will need close electrolyte and renal function monitoring. Time Spent With Patient Time: Total time managing care of this patient today ____ minutes. Quality Stroke Does the patient have a stroke diagnosis?: No VTE Prior VTE?: No VTE Risk Level:: Medical - moderate - high VTE Device Contraindication: Treatment Not Indicated VTE Drug Contraindication: N/A - Med Ordered
--- NOTE | 2022-06-02 18:11 | PHA.MEDREC ---
Pharmacy Consult ? Medication Reconciliation Pharmacy has completed the medication reconciliation. Patient confirmed all medication. Patient just discharged 05/29/22 and previously on 05/21/22. On 05/21/22, Patient was to stop taking amlodpine and start taking nifedipine. On 05/29/22 patient was to stop taking lasix and start toresmide. After speaking with the patient, he reports taking all the new medications as well as confirming he is taking lasix as well as amlodipine. I only kept the medications that patient is suppose to be on as patient should not be taking all of them. I informed Dr. Mcneal of the situaton for further management. Opal Brown, PharmD
[2022-06-02 19:23] LABS: Glucose, Whole Blood 188 mg/dL (60-115)
--- NOTE | 2022-06-02 19:37 | PC.NURSE ---
assumed care of pt resting quietly while son at bedside no apparent distress requested dinner and a pillow- done
--- NOTE | 2022-06-02 20:40 | MHC.EDTECH ---
this pct assumed care of pt at 1900 ,pt 1999 rounding done ,vitals sign taken also orthostatics vitals sign done .
--- NOTE | 2022-06-02 21:15 | MHC.EDTECH ---
2100 blood sugar taken ,maranda cole aware of result .
[2022-06-02] MEDS: Simethicone 80 MG TAB.CHEW 160 MG PO (21:19)
[2022-06-02] MEDS: Gabapentin 300 MG CAPSULE PO (21:19)
[2022-06-02] MEDS: Heparin Sodium,Porcine 5,000 UNIT/ML VIAL 5000 UNIT SUBCUT (21:19)
--- NOTE | 2022-06-02 21:21 | PC.NURSE ---
per Yaneth, PCT glucose POC 204; administered 4 units Humalog per protocol
[2022-06-02] MEDS: Insulin Lispro 100 UNIT/ML 3 ML VIAL SUBCUT (21:22)
[2022-06-02 21:23] LABS: Glucose, Whole Blood 204 mg/dL (60-115)
[2022-06-02] MEDS: traZODone HCL 50 MG TABLET 150 MG PO (21:30)
--- NOTE | 2022-06-02 21:31 | PC.NURSE ---
pt requested trazadone 150mg PRN med for sleep- med administered per MAR
--- NOTE | 2022-06-02 22:58 | PC.NURSE ---
pt sleeping, no apparent distress
[2022-06-03] VITALS (8 sets, daily range): BP systolic 118–184; BP diastolic 59–86; PULSE 69–89; RESP 15–80; TEMP 35.9–36.8; O2SAT 92–97
--- NOTE | 2022-06-03 | MHC.EDTECH ---
0000 rounding done ,vitals sign taken ,pt sleeping ,no issues .
[2022-06-03] MEDS: 0.9 % Sodium Chloride Flush 3 ML SYRINGE IVFLUSH ×4 (00:22→20:53)
--- NOTE | 2022-06-03 02:29 | MHC.EDTECH ---
0200 rounding done ,pt sleeping ,no issues .
[2022-06-03 06:28] LABS: Anion Gap 22 (12-20); Blood Urea Nitrogen 79 mg/dL (9-16); Calcium 8.8 mg/dL (8.4-10.2); Carbon Dioxide 17 mmol/L (22-29); Chloride 94 mmol/L (96-108); Creatinine Clr Calc Pharmacy 25.8; Estimated Glomerular Filt Rate 17; Glucose Random 149 mg/dL (60-115); Potassium 3.8 mmol/L (3.3-5.1); Sodium 129 mmol/L (135-145)
[2022-06-03 07:57] LABS: Glucose, Whole Blood 119 mg/dL (60-115)
[2022-06-03 08:32] LABS: Appearance Urine Clear; Color Urine Yellow; Glucose Urine UA Negative (Negative); Leukocyte Esterase Urine Negative (Negative); Nitrite Urine Negative (Negative); Urine Blood Negative (Negative); Urine Ketones Negative (Negative); Urine Protein Trace mg/dL (Neg-Trace)
[2022-06-03] MEDS: Gabapentin 300 MG CAPSULE PO ×2 (08:32→20:51)
[2022-06-03] MEDS: Simethicone 80 MG TAB.CHEW 160 MG PO ×3 (08:32→20:51)
[2022-06-03] MEDS: Venlafaxine HCl ER 150 MG CAP.ER.24H PO (08:32)
[2022-06-03] MEDS: Labetalol HCL 200 MG TABLET PO ×2 (08:32→20:51)
[2022-06-03] MEDS: Heparin Sodium,Porcine 5,000 UNIT/ML VIAL 5000 UNIT SUBCUT ×2 (08:32→20:50)
[2022-06-03] MEDS: Cholecalciferol (Vitamin D3) 25 MCG TABLET 50 MCG PO (08:33)
[2022-06-03] MEDS: Multivitamin TABLET 1 TAB PO (08:33)
[2022-06-03] MEDS: buPROPion HCl XL 150 MG TAB.ER.24H PO (08:33)
[2022-06-03] MEDS: Famotidine 20 MG TABLET PO (08:34)
--- NOTE | 2022-06-03 08:42 | PC.NURSE ---
Alert and oriented, resp even and unlabored. Watching tv in room, medicated per the MAR. Offers no complaints at this time, call santiago within reach
--- NOTE | 2022-06-03 09:30 | HO.PM.IMPN ---
Subjective Subjective Date of Service: 06/03/22 Interval History: Being followed for acute kidney injury and hyponatremia,pt. is feeling better this morning denies lightheadedness, dizziness, no nausea, no vomiting, no headache, no other acute issues since admission, no fevers no chills no recurrent blurred vision, tolerating diet no nausea, no vomiting, no abdominal pain. Review of Systems Review of Systems: Yes all other systems are reviewed and are negative Physical Exam Vital Signs: Vital Signs: Last Vital Signs Temp 97.6 F 06/03/22 07:36 Pulse 88 06/03/22 07:36 Resp 16 06/03/22 07:36 BP 162/83 H 06/03/22 07:36 Pulse Ox 92 06/03/22 07:36 O2 Del Method 06/03/22 07:36 BMI result Body Mass Index 32.0 Const: Other: General? awake alert x3 sitting comfortably,in no acute distress.? Neck? supple no JVD. CVS? regular rate rhythm, Respiratory lungs clear to auscultation, no respiratory distress, no wheeze, no rhonchi. Gastrointestinal abdomen soft, nontender, bowel sounds audible, no guarding , no rigidity. Extremities no edema. Neuro nonfocal ,speech clear. Skin no rash psych appropriate affect Objective Data Active Medications Acetaminophen (Acetaminophen 325 Mg Tablet) 650 mg PO Q6H PRN PRN Reason: Pain, Mild (Pain Scale 1-3) Bupropion HCl (Bupropion Hcl Xl 150 Mg Tab.Er.24h) 150 mg PO DAILY [facility] Last Admin: 06/03/22 08:33 Dose: 150 mg Documented By: PARVIZ Clonazepam (Clonazepam 0.5 Mg Tablet) 0.5 mg PO TID PRN PRN Reason: anxiety Dextrose (Dextrose 50 % 25 Gm/50 Ml Syringe) 25 gm IVPUSH Q15M PRN; Protocol PRN Reason: per Hypoglycemia Standing Ord. Famotidine (Famotidine 20 Mg Tablet) 20 mg PO DAILY [facility] Last Admin: 06/03/22 08:34 Dose: 20 mg Documented By: PARVIZ Gabapentin (Gabapentin 300 Mg Capsule) 300 mg PO BID [facility] Last Admin: 06/03/22 08:32 Dose: 300 mg Documented By: PARVIZ Glucose (Glucose Gel 15 Gm Gel..Gram.) 15 gm PO Q15M PRN; Protocol PRN Reason: per Hypoglycemia Standing Ord. Heparin Sodium (Porcine) (Heparin Sodium,Porcine 5,000 Unit/Ml Vial) 5,000 unit SUBCUT Q12H [facility] Last Admin: 06/03/22 08:32 Dose: 5,000 unit Documented By: PARVIZ Insulin Human Lispro (Insulin Lispro 100 Unit/Ml 3 Ml Vial) 0 unit SUBCUT QIDACHS [facility]; Protocol Last Admin: 06/03/22 08:34 Dose: Not Given Documented By: PARVIZ Non-Admin Reason: No Insulin Coverage Labetalol HCl (Labetalol Hcl 200 Mg Tablet) 200 mg PO BID [facility]; Protocol Last Admin: 06/03/22 08:32 Dose: 200 mg Documented By: PARVIZ Melatonin (Melatonin 3 Mg Tablet) 6 mg PO BEDTIME PRN PRN Reason: Insomnia Multivitamins/Vitamin C (Multivitamin Tablet) 1 tab PO DAILY [facility] Last Admin: 06/03/22 08:33 Dose: 1 tab Documented By: PARVIZ Non-Formulary Medication (Linagliptin [Tradjenta]) 5 mg PO DAILY [facility] Non-Formulary Medication (Insulin Glargine U-300 Conc [Toujeo Max U-300 Solostar]) 70 unit SUBCUT DAILY [facility] Ondansetron HCl (Ondansetron Hcl 4 Mg/2 Ml Vial) 4 mg IVPUSH Q8H PRN PRN Reason: Nausea and Vomiting Pharmacy Consult (Consult Rx Perform Med Rec) 1 each MISCELLANE ONCE PRN PRN Reason: Consult order Simethicone (Simethicone 80 Mg Tab.Chew) 160 mg PO TID [facility] Last Admin: 06/03/22 08:32 Dose: 160 mg Documented By: PARVIZ Sodium Chloride (0.9 % Sodium Chloride Flush 3 Ml Syringe) 3 ml IVFLUSH QSHIFT [facility] Last Admin: 06/03/22 08:34 Dose: 3 ml Documented By: PARVIZ Trazodone HCl (Trazodone Hcl 50 Mg Tablet) 150 mg PO BEDTIME PRN PRN Reason: Sleep Last Admin: 06/02/22 21:30 Dose: 150 mg Documented By: RENETTA Venlafaxine HCl (Venlafaxine Hcl Er 150 Mg Cap.Er.24h) 150 mg PO DAILY [facility] Last Admin: 06/03/22 08:32 Dose: 150 mg Documented By: PARVIZ Vitamin D (Cholecalciferol (Vitamin D3) 25 Mcg Tablet) 50 mcg PO DAILY [facility] Last Admin: 06/03/22 08:33 Dose: 50 mcg Documented By: PARVIZ Labs 06/02/22 14:40 06/03/22 05:19 Labs: Laboratory Results - last 24 hr 06/02/22 06/02/22 06/02/22 14:40 14:40 14:40 MCV 83.6 MCH 29.6 MCHC 35.4 RDW 11.9 Plt Count 352 MPV 9.8 Absolute Nucleated RBC 0.000 Nucleated RBC % (auto) 0.0 PT INR Anion Gap 21 H Estim Creat Clear Calc 22.6 Estimated GFR 15 POC Glucose Random Glucose 146 H Calcium 8.9 D Magnesium 1.7 Troponin I High Sens 8.3 B-Natriuretic Peptide Urine Color Urine Appearance Urine pH Ur Specific [place] Urine Protein Urine Glucose (UA) Urine Ketones Urine Blood Urine Nitrite Ur Leukocyte Esterase Ethyl Alcohol Influenza Type A (PCR) Influenza Type B (PCR) RSV RNA Qual (PCR) SARS-CoV-2 RNA (RT-PCR) 06/02/22 06/02/22 06/02/22 14:40 14:40 14:40 MCV MCH MCHC RDW Plt Count MPV Absolute Nucleated RBC Nucleated RBC % (auto) PT 12.4 INR 1.1 Anion Gap Estim Creat Clear Calc Estimated GFR POC Glucose Random Glucose Calcium Magnesium Troponin I High Sens B-Natriuretic Peptide 33 Urine Color Urine Appearance Urine pH Ur Specific [place] Urine Protein Urine Glucose (UA) Urine Ketones Urine Blood Urine Nitrite Ur Leukocyte Esterase Ethyl Alcohol < 10 Influenza Type A (PCR) Influenza Type B (PCR) RSV RNA Qual (PCR) SARS-CoV-2 RNA (RT-PCR) 06/02/22 06/02/22 06/02/22 14:41 19:19 21:14 MCV MCH MCHC RDW Plt Count MPV Absolute Nucleated RBC Nucleated RBC % (auto) PT INR Anion Gap Estim Creat Clear Calc Estimated GFR POC Glucose 188 H 204 H Random Glucose Calcium Magnesium Troponin I High Sens B-Natriuretic Peptide Urine Color Urine Appearance Urine pH Ur Specific [place] Urine Protein Urine Glucose (UA) Urine Ketones Urine Blood Urine Nitrite Ur Leukocyte Esterase Ethyl Alcohol Influenza Type A (PCR) NEGATIVE Influenza Type B (PCR) NEGATIVE RSV RNA Qual (PCR) NEGATIVE SARS-CoV-2 RNA (RT-PCR) NEGATIVE 06/03/22 06/03/22 06/03/22 05:19 07:40 08:23 MCV MCH MCHC RDW Plt Count MPV Absolute Nucleated RBC Nucleated RBC % (auto) PT INR Anion Gap 22 H Estim Creat Clear Calc 25.8 Estimated GFR 17 POC Glucose 119 H Random Glucose 149 H Calcium 8.8 Magnesium Troponin I High Sens B-Natriuretic Peptide Urine Color Yellow Urine Appearance Clear Urine pH 5.0 Ur Specific [place] 1.010 Urine Protein Trace Urine Glucose (UA) Negative Urine Ketones Negative Urine Blood Negative Urine Nitrite Negative Ur Leukocyte Esterase Negative Ethyl Alcohol Influenza Type A (PCR) Influenza Type B (PCR) RSV RNA Qual (PCR) SARS-CoV-2 RNA (RT-PCR) Assessment and Plan (1) Acute renal failure superimposed on stage 4 chronic kidney disease: Status: Acute (2) Acute hyponatremia: Status: Acute Plan 56-year-old gentleman with past medical history of chronic kidney disease stage 4, diabetic nephropathy, diastolic congestive heart failure, diabetes? mellitus recently discharged from [facility] after treated for new onset diastolic congestive heart failure and was discharged home on torsemide and was started back on losartan 50 mg since June 01? presented with lightheadedness dizziness blurred vision and diagnosed to have mild hyponatremia and acute on chronic kidney disease stage 4.? Patient will be admitted to hospital for close monitoring of renal function. ? Acute on chronic kidney disease stage 4 ? pre renal likely due to diuretics with soft blood pressures on arrival creatinine trending down from 4.2-3.7, continue to hold diuretics and losartan ?s/p 1 L of IV fluid in the ER, avoid nephrotoxins, avoid hypotension, follow renal function ? follow nephrology consult ? dizziness/blurred vision ? likely due to dehydration, CT brain and MRI brain showed no acute stroke, all symptoms resolved. ?mild hyponatremia, intermittent? likely related to kidney disease and diuretics, sodium 129 follow BMP ?history of diastolic congestive heart failure ?no acute exacerbation, hold diuretics ?diabetes mellitus on insulin will place on insulin sliding scale, diabetic diet, resume home medications, monitor point of care q.i.d. ?diabetic neuropathy continue gabapentin ? History of depression anxiety/conversion disorder continue home medications. ?history of orthostatic hypotension blood pressure trending up will resume labetalol 200 mg b.i.d., continue to hold losartan 50 mg daily, nifedipine 60 mg daily , and follow orthostatic blood pressures ?mild obesity, counseling done recommend low-calorie diet ?DVT prophylaxis subQ heparin ?full code ?patient will need continued inpatient stay due to acute on chronic kidney disease and hyponatremia will need close electrolyte and renal function monitoring. Time Spent With Patient Time: Total time managing care of this patient today ____ minutes. Quality Stroke Does the patient have a stroke diagnosis?: No VTE Prior VTE?: No VTE Risk Level:: Medical - moderate - high VTE Device Contraindication: Treatment Not Indicated VTE Drug Contraindication: N/A - Med Ordered
[2022-06-03] MEDS: Insulin Glargine,Hum.rec.anlog 100 UNIT/ML 10 ML VIAL 56 UNIT SUBCUT (10:37)
--- NOTE | 2022-06-03 11:11 | MHC.CM.PN ---
IMM DELIVERED PT LIVES IN APT WITH SISTER. INDEPENDENT AT BASELINE, USES A CANE NEEDED. PT HAS DAILY MED MANAGEMENT WITH [facility]. RETURN REFFERAL SENT. +HCP + COVID VAX X2 (J AND J + BOOSTER) PCP DR. ALVAREZ DP: HOME WITH RESUMPTION OF [facility]. FAMILY WILL TRANSPORT HOME.
[2022-06-03 11:52] LABS: Glucose, Whole Blood 163 mg/dL (60-115)
[2022-06-03] MEDS: Insulin Lispro 100 UNIT/ML 3 ML VIAL SUBCUT ×2 (14:41→20:50)
[2022-06-03] MEDS: Meclizine HCl 25 MG TABLET PO ×2 (15:56→23:00)
[2022-06-03 18:25] LABS: Glucose, Whole Blood 77 mg/dL (60-115)
--- NOTE | 2022-06-03 20:12 | PC.NURSE ---
RN to RN report given to nurse Adams. Pt being transferred to med surg room 353 and aware of plan of care.
[2022-06-03 21:00] LABS: Glucose, Whole Blood 158 mg/dL (60-115)
[2022-06-03] MEDS: traZODone HCL 50 MG TABLET 150 MG PO (23:00)
[2022-06-04] VITALS (7 sets, daily range): BP systolic 141–187; BP diastolic 66–86; PULSE 73–85; RESP 16–18; TEMP 36.1–36.9; O2SAT 97–100
--- NOTE | 2022-06-04 04:00 | PC.NURSE ---
patient blood pressure elevated at 187/86. pulse 79. notified, no new orders at this time.
[2022-06-04 06:30] LABS: Anion Gap 17 (12-20); Blood Urea Nitrogen 65 mg/dL (9-16); Calcium 9.3 mg/dL (8.4-10.2); Carbon Dioxide 22 mmol/L (22-29); Chloride 97 mmol/L (96-108); Creatinine Clr Calc Pharmacy 35.2; Estimated Glomerular Filt Rate 24; Glucose Random 126 mg/dL (60-115); Potassium 5.1 mmol/L (3.3-5.1); Sodium 131 mmol/L (135-145)
[2022-06-04 07:46] LABS: Glucose, Whole Blood 139 mg/dL (60-115)
[2022-06-04] MEDS: Cholecalciferol (Vitamin D3) 25 MCG TABLET 50 MCG PO (08:54)
[2022-06-04] MEDS: Gabapentin 300 MG CAPSULE PO ×2 (08:54→20:57)
[2022-06-04] MEDS: buPROPion HCl XL 150 MG TAB.ER.24H PO (08:54)
[2022-06-04] MEDS: Famotidine 20 MG TABLET PO (08:54)
[2022-06-04] MEDS: Venlafaxine HCl ER 150 MG CAP.ER.24H PO (08:54)
[2022-06-04] MEDS: SITagliptin Phosphate 25 MG TABLET PO (08:54)
[2022-06-04] MEDS: Labetalol HCL 200 MG TABLET PO ×2 (08:54→20:57)
[2022-06-04] MEDS: NIFEdipine ER 30 MG TAB.ER.24 PO ×2 (08:54→12:55)
[2022-06-04] MEDS: Insulin Glargine,Hum.rec.anlog 100 UNIT/ML 10 ML VIAL 56 UNIT SUBCUT (08:55)
[2022-06-04] MEDS: Multivitamin TABLET 1 TAB PO (08:55)
[2022-06-04] MEDS: Simethicone 80 MG TAB.CHEW 160 MG PO ×3 (08:55→20:57)
[2022-06-04] MEDS: Heparin Sodium,Porcine 5,000 UNIT/ML VIAL 5000 UNIT SUBCUT ×2 (08:55→20:57)
[2022-06-04] MEDS: 0.9 % Sodium Chloride Flush 3 ML SYRINGE IVFLUSH ×2 (08:55→15:19)
[2022-06-04] MEDS: Acetaminophen 325 MG TABLET 650 MG PO (11:07)
--- NOTE | 2022-06-04 11:51 | CONS_ITS ---
DATE OF SERVICE: 06/03/2022 REASON FOR CONSULTATION: I was asked to see the patient to assist in evaluation and management of patient's acute kidney injury on advanced chronic kidney disease. HISTORY OF PRESENT ILLNESS: In summary, the patient is a 56-year-old gentleman, well known to me, who was recently hospitalized and is now presenting back to the hospital complaining of lightheadedness, dizziness, and blurred vision. He has multiple chronic medical problems including advanced stage 4 chronic kidney disease, diabetes, GARCIA, hypertension, hyperlipidemia, sleep apnea, depression, and episodes of systolic hypertension with orthostatic hypotension in the past. The patient is getting managed as an outpatient for his congestive heart failure on a course of diuretics and recently apparently, ARB was added to his regimen. As mentioned, he presented to the emergency room complaining of symptoms of lightheadedness, dizziness, and unable to ambulate feeling he had to lie down. PAST MEDICAL HISTORY: As outlined above. MEDICATIONS: His medications on admission are noted in the admitting notes. ALLERGIES: HE HAS ALLERGIES TO CEPHALEXIN AND LISINOPRIL LISTED. MEDICATIONS: His current medications are noted in the MAR. SOCIAL HISTORY: He is a nonsmoker, nondrinker. No illicit drug use. He denies taking NSAIDs. FAMILY HISTORY: Notable for diabetes. REVIEW OF SYSTEMS: As noted above. PHYSICAL EXAMINATION: VITAL SIGNS: Blood pressure of 144/67. I am told he was orthostatic when blood pressures were checked lying, sitting, and standing. HEAD: Atraumatic and normocephalic. NECK: Supple. Mucous membranes are moist. LUNGS: Breath sounds bilaterally. CARDIAC: Regular rate and rhythm without rub. ABDOMEN: Soft, nontender. Good bowel sounds. No CVA tenderness. EXTREMITIES: Show no edema. LABORATORY DATA: Labs show hemoglobin 10.1, hematocrit 28.5, white blood cell count 9.1, platelet count 352. Sodium 129, potassium 3.8, chloride 94, bicarb 17, BUN 79, creatinine 3.69. On admission yesterday, creatinine was 4.2. On reviewing his records, his serum creatinine typically runs in the 2.5 to 3.5 range. Urine studies in fact show urine albumin and creatinine ratio of 742. Back in May, he had serologies including DORINDA and ANCA, which were all negative or normal. IMPRESSION: 56-YEAR-OLD DIABETIC WITH SYSTOLIC HYPERTENSION AND ORTHOSTASIS, ACUTE KIDNEY INJURY ON CHRONIC KIDNEY DISEASE IN THE SETTING OF DIABETES, HYPERTENSION. 1. Acute kidney injury. This is most likely due to relative renal hypoperfusion with the addition of the ARB on top of his diuretics and other blood pressure medications. Renal function is actually trending to improve, now off diuretic and ARB. 2. Advanced chronic kidney disease. Again, this is most consistent with diabetic hypertensive renal disease. 3. Diabetes. 4. Orthostatic hypotension. Unfortunately, he has most likely autonomic dysfunction from his diabetes and prone to orthostasis. These patients are challenging to manage as you want to control systolic hypertension while supine, but avoid orthostasis when he sits up and walks around. We will need to adjust his medications. At some point, we will get him into the Hypertensive [facility] in our [place] Office. I do a 24-hour ambulatory blood pressure monitoring, which could help us target the timing of when blood pressure med should be given. 1. Anemia. He may be an EPO candidate in the future. In fact, erythropoietin can sometimes help with controlling orthostasis by increasing blood pressure when upright and walking. RECOMMENDATIONS: At this time include, agree with holding the diuretic and ARB. Following renal function closely. Avoiding nephrotoxins. Tracking orthostatic blood pressures. Use leg stockings, which can help attenuate an orthostasis. We will follow the patient closely with the team. MD JORDON Escudero/ELVA / [id number]
[2022-06-04 12:13] LABS: Glucose, Whole Blood 151 mg/dL (60-115)
--- NOTE | 2022-06-04 13:32 | PM.PNNEP ---
Subjective Subjective Date of Service: 06/04/22 Interval history: BSeen and examined, events noted Physical Exam Vital Signs: Vital Signs: Last Vital Signs Temp 97.2 F 06/04/22 11:13 Pulse 80 06/04/22 11:13 Resp 18 06/04/22 11:13 BP 170/79 H 06/04/22 11:13 Pulse Ox 100 06/04/22 11:13 O2 Del Method 06/04/22 11:13 BMI result Body Mass Index 32.0 Const: Other: General? awake fernanda rt x3 ,in no acute distress.? Neck? supple no JVD. CVS ? regular rate rhy thm, Respiratory l ungs clear to ausc ultation, no respi ratory distress, n o wheeze, no rhonc hi. Gastrointestin al abdomen soft, n ontender, bowel so unds audible, no g uarding , no rigid ity. Extremities n o edema. Neuro non focal ,speech terrence r. Skin no rash ps ych appropriate af fect Objective Data Labs 06/02/22 14:40 06/04/22 05:27 Labs: Laboratory Results - last 24 hr 06/03/22 06/03/22 06/04/22 18:21 20:36 05:27 Sodium 131 L Potassium 5.1 D Chloride 97 Carbon Dioxide 22 Anion Gap 17 BUN 65 H Creatinine 2.71 H Estim Creat Clear Calc 35.2 Estimated GFR 24 POC Glucose 77 158 H Random Glucose 126 H Calcium 9.3 06/04/22 06/04/22 07:37 12:06 Sodium Potassium Chloride Carbon Dioxide Anion Gap BUN Creatinine Estim Creat Clear Calc Estimated GFR POC Glucose 139 H 151 H Random Glucose Calcium Procedures Date of Service Date of Service: 06/04/22 Assessment & Plan Assessment and plan (1) Acute renal failure superimposed on stage 4 chronic kidney disease: Status: Acute (2) Acute hyponatremia: Status: Acute Plan - Non-Oliguric LEDA: peak SCr 4.2--> 2.7 today of ARB/diuretic; ques remainsif he has yu NU and intol of ADONAY/ARB - CKD 4: BSL SCr 2.5-3.0 - Labile HTN and prone to [place] type symptoms REC: avoid ADONAY/ARB; r/s other BP meds and lasix at 1/2 usu dose; close f.u as outpt ; needs doppler of renals whcih can be done as outpt Time Spent With Patient Time: Total time managing care of this patient today ____ minutes. Progress Note: Quality Stroke Does the patient have a stroke diagnosis?: No
--- NOTE | 2022-06-04 13:55 | HO.PM.IMPN ---
Subjective Subjective Date of Service: 06/04/22 Interval History: complaining of frontal pressure-like headache, no radiation of pain,no visual symptoms, no weakness, no numbness ,history of similar episodes in the past, no nausea no vomiting tolerating diet, no diarrhea, no fevers, no chills. Review of Systems Review of Systems: Yes all other systems are reviewed and are negative Physical Exam Vital Signs: Vital Signs: Last Vital Signs Temp 97.2 F 06/04/22 11:13 Pulse 80 06/04/22 11:13 Resp 18 06/04/22 11:13 BP 170/79 H 06/04/22 11:13 Pulse Ox 100 06/04/22 11:13 O2 Del Method 06/04/22 11:13 BMI result Body Mass Index 32.0 Const: Other: General? awake fernanda rt x3 ,in no acute distress.? Neck? supple no JVD. CVS ? regular rate rhy thm, Respiratory l ungs clear to ausc ultation, no respi ratory distress, n o wheeze, no rhonc hi. Gastrointestin al abdomen soft, n ontender, bowel so unds audible, no g uarding , no rigid ity. Extremities n o edema. Neuro non focal ,speech terrence r. Skin no rash ps ych appropriate af fect Objective Data Active Medications Acetaminophen (Acetaminophen 325 Mg Tablet) 650 mg PO Q6H PRN PRN Reason: Pain, Mild (Pain Scale 1-3) Last Admin: 06/04/22 11:07 Dose: 650 mg Documented By: ANA M Acetaminophen/Butalbital/Caffeine (Butalb/Acetamin/Caff 50/325/40 Tablet) 1 tab PO Q4H PRN PRN Reason: Headache Bupropion HCl (Bupropion Hcl Xl 150 Mg Tab.Er.24h) 150 mg PO DAILY [facility] Last Admin: 06/04/22 08:54 Dose: 150 mg Documented By: ANA M Clonazepam (Clonazepam 0.5 Mg Tablet) 0.5 mg PO TID PRN PRN Reason: anxiety Famotidine (Famotidine 20 Mg Tablet) 20 mg PO DAILY [facility] Last Admin: 06/04/22 08:54 Dose: 20 mg Documented By: ANA M Gabapentin (Gabapentin 300 Mg Capsule) 300 mg PO BID [facility] Last Admin: 06/04/22 08:54 Dose: 300 mg Documented By: ANA M Glucose (Glucose Gel 15 Gm Gel..Gram.) 15 gm PO Q15M PRN; Protocol PRN Reason: per Hypoglycemia Standing Ord. Heparin Sodium (Porcine) (Heparin Sodium,Porcine 5,000 Unit/Ml Vial) 5,000 unit SUBCUT Q12H [facility] Last Admin: 06/04/22 08:55 Dose: 5,000 unit Documented By: ANA M Dextrose (D10) 250 mls @ 750 mls/hr IV Q15M PRN; Protocol PRN Reason: per Hypoglycemia Standing Ord. Insulin Glargine (Insulin Glargine,Hum.Rec.Anlog 100 Unit/Ml 10 Ml Vial) 56 unit SUBCUT DAILY [facility] Last Admin: 06/04/22 08:55 Dose: 56 unit Documented By: ANA M Comments: no barcodes available in pixis Insulin Human Lispro (Insulin Lispro 100 Unit/Ml 3 Ml Vial) 0 unit SUBCUT QIDACHS [facility]; Protocol Last Admin: 06/04/22 12:20 Dose: Not Given Documented By: ANA M Non-Admin Reason: No Insulin Coverage Labetalol HCl (Labetalol Hcl 200 Mg Tablet) 200 mg PO BID [facility]; Protocol Last Admin: 06/04/22 08:54 Dose: 200 mg Documented By: ANA M Meclizine HCl (Meclizine Hcl 25 Mg Tablet) 25 mg PO Q6H PRN PRN Reason: Dizziness Last Admin: 06/03/22 23:00 Dose: 25 mg Documented By: JACY Melatonin (Melatonin 3 Mg Tablet) 6 mg PO BEDTIME PRN PRN Reason: Insomnia Multivitamins/Vitamin C (Multivitamin Tablet) 1 tab PO DAILY [facility] Last Admin: 06/04/22 08:55 Dose: 1 tab Documented By: ANA M Nifedipine (Nifedipine Er 30 Mg Tab.Er.24) 30 mg PO DAILY [facility]; Protocol Last Admin: 06/04/22 08:54 Dose: 30 mg Documented By: ANA M Nifedipine (Nifedipine Er 30 Mg Tab.Er.24) 30 mg PO ONCE ONE; Protocol Stop: 06/04/22 12:00 Last Admin: 06/04/22 12:55 Dose: 30 mg Documented By: ANA M Ondansetron HCl (Ondansetron Hcl 4 Mg/2 Ml Vial) 4 mg IVPUSH Q8H PRN PRN Reason: Nausea and Vomiting Pharmacy Consult (Consult Rx Perform Med Rec) 1 each MISCELLANE ONCE PRN PRN Reason: Consult order Simethicone (Simethicone 80 Mg Tab.Chew) 160 mg PO TID [facility] Last Admin: 06/04/22 08:55 Dose: 160 mg Documented By: ANA M Sitagliptin Phosphate (Sitagliptin Phosphate 25 Mg Tablet) 25 mg PO DAILY [facility] Last Admin: 06/04/22 08:54 Dose: 25 mg Documented By: ANA M Sodium Chloride (0.9 % Sodium Chloride Flush 3 Ml Syringe) 3 ml IVFLUSH QSHIFT [facility] Last Admin: 06/04/22 08:55 Dose: 3 ml Documented By: ANA M Trazodone HCl (Trazodone Hcl 50 Mg Tablet) 150 mg PO BEDTIME PRN PRN Reason: Sleep Last Admin: 06/03/22 23:00 Dose: 150 mg Documented By: JACY Venlafaxine HCl (Venlafaxine Hcl Er 150 Mg Cap.Er.24h) 150 mg PO DAILY [facility] Last Admin: 06/04/22 08:54 Dose: 150 mg Documented By: ANA M Vitamin D (Cholecalciferol (Vitamin D3) 25 Mcg Tablet) 50 mcg PO DAILY [facility] Last Admin: 06/04/22 08:54 Dose: 50 mcg Documented By: ANA M Labs 06/02/22 14:40 06/04/22 05:27 Labs: Laboratory Results - last 24 hr 06/03/22 06/03/22 06/04/22 18:21 20:36 05:27 Anion Gap 17 Estim Creat Clear Calc 35.2 Estimated GFR 24 POC Glucose 77 158 H Random Glucose 126 H Calcium 9.3 06/04/22 06/04/22 07:37 12:06 Anion Gap Estim Creat Clear Calc Estimated GFR POC Glucose 139 H 151 H Random Glucose Calcium Assessment and Plan (1) Acute renal failure superimposed on stage 4 chronic kidney disease: Status: Acute (2) Acute hyponatremia: Status: Acute Plan 56-year-old gentleman with past medical history of chronic kidney disease stage 4, diabetic nephropathy, diastolic congestive heart failure, diabetes? mellitus recently discharged from [facility] after treated for new onset diastolic congestive heart failure and was discharged home on torsemide and was started back on losartan 50 mg since June 01? presented with lightheadedness dizziness blurred vision and diagnosed to have mild hyponatremia and acute on chronic kidney disease stage 4.? Patient will be admitted to hospital for close monitoring of renal function. ? Acute on chronic kidney disease stage 4 ? pre renal likely due to diuretics with soft blood pressures on arrival creatinine return to baseline 2.7 hold diuretics and losartan ?s/p 1 L of IV fluid in the ER, avoid nephrotoxins, avoid hypotension, follow renal function ? case discussed with Nephrology they will arrange for outpatient Doppler study question renal artery stenosis ? dizziness/blurred vision ? likely due to dehydration, CT and MRI brain showed no acute stroke, all symptoms resolved. acute on ch. headaches not relieved with Tylenol, give fiorecet and follow. ?mild hyponatremia, intermittent? likely related to kidney disease and diuretics, sodium improved to 131 ?history of diastolic congestive heart failure ?no acute exacerbation, hold diuretics today and resume low-dose starting tomorrow ?diabetes mellitus on insulin will place on insulin sliding scale, diabetic diet, resume home medications, monitor point of care q.i.d. ?diabetic neuropathy continue gabapentin ? History of depression anxiety/conversion disorder continue home medications. ?history of orthostatic hypotension blood pressure trending up on labetalol 200 mg b.i.d., will resume nifedipine 60 mg daily,continue to hold losartan 50 mg daily, and follow orthostatic blood pressures outpatient workup by Nephrology ?mild obesity, counseling done recommend low-calorie diet ?DVT prophylaxis subQ heparin ?full code ?patient will need continued inpatient stay due to acute on chronic kidney disease and hyponatremia will need close electrolyte and renal function monitoring. Time Spent With Patient Time: Total time managing care of this patient today ____ minutes. Quality Stroke Does the patient have a stroke diagnosis?: No VTE Prior VTE?: No VTE Risk Level:: Medical - moderate - high VTE Device Contraindication: Treatment Not Indicated VTE Drug Contraindication: N/A - Med Ordered
[2022-06-04] MEDS: Butalb/Acetamin/Caff 50/325/40 TABLET 1 TAB PO (14:31)
[2022-06-04] MEDS: clonazePAM 0.5 MG TABLET PO ×2 (15:18→23:13)
[2022-06-04 16:58] LABS: Glucose, Whole Blood 105 mg/dL (60-115)
[2022-06-04 20:42] LABS: Glucose, Whole Blood 125 mg/dL (60-115)
[2022-06-04] MEDS: traZODone HCL 50 MG TABLET 150 MG PO (23:13)
[2022-06-05 03:39] VITALS: BP 127/58; PULSE 71; RESP 18; TEMP 36.6; O2SAT 96
--- NOTE | 2022-06-05 05:30 | PC.NURSE ---
Assumed care at 0300, pt is asleep, awaken with care, no complaints presented, Vitals WNL, SR on the 70s in tele.
[2022-06-05 07:47] LABS: Glucose, Whole Blood 75 mg/dL (60-115)
[2022-06-05 07:55] VITALS: BP 139/82; PULSE 77; RESP 18; TEMP 36.9; O2SAT 98
[2022-06-05] MEDS: Simethicone 80 MG TAB.CHEW 160 MG PO (08:00)
[2022-06-05] MEDS: Cholecalciferol (Vitamin D3) 25 MCG TABLET 50 MCG PO (08:01)
[2022-06-05] MEDS: 0.9 % Sodium Chloride Flush 3 ML SYRINGE IVFLUSH (08:01)
[2022-06-05] MEDS: Labetalol HCL 200 MG TABLET PO (08:01)
[2022-06-05] MEDS: Gabapentin 300 MG CAPSULE PO (08:01)
[2022-06-05] MEDS: Famotidine 20 MG TABLET PO (08:01)
[2022-06-05] MEDS: buPROPion HCl XL 150 MG TAB.ER.24H PO (08:01)
[2022-06-05] MEDS: SITagliptin Phosphate 25 MG TABLET PO (08:01)
[2022-06-05] MEDS: NIFEdipine ER 30 MG TAB.ER.24 PO (08:01)
[2022-06-05] MEDS: Venlafaxine HCl ER 150 MG CAP.ER.24H PO (08:01)
[2022-06-05] MEDS: Heparin Sodium,Porcine 5,000 UNIT/ML VIAL 5000 UNIT SUBCUT (08:02)
[2022-06-05] MEDS: Multivitamin TABLET 1 TAB PO (08:02)
--- NOTE | 2022-06-05 10:23 | PM.DS ---
DS: Providers Provider Date of Service: 06/05/22 Date of admission: 06/02/22 17:52 Primary care physician: Sarthak Spencer MD Consults: 06/02/22 18:23 Consult to Nephrology Routine Consulting Provider: Oscar Moreno Reason for consultation: mahad on ckd Has provider been notified: No DS: Diagnosis Discharge Diagnosis (1) Acute renal failure superimposed on stage 4 chronic kidney disease: Status: Acute (2) Acute hyponatremia: Status: Acute DS: Summary Hospital Course Hospital Course: Date of Service: 06/02/22 Attending physician on admission: Med Mcneal Chief Complaint:? lightheadedness dizziness and blurred vision ?56-year-old gentleman with past medical history of diabetes mellitus, Yang, hypertension, hyperlipidemia, chronic kidney disease, sleep apnea and depression? recently discharged from [facility]? after being treated for new onset diastolic congestive heart failure was started on diuretics and arbs, presented to ED today due to complaint of generalized weakness, dizziness lightheadedness and off balance since this morning, symptoms started while he was lying down, he also felt off balance, son noted that he had slurred speech patient was unable to hold his neck up he denies weakness numbness? of extremities, no history of fall trauma denies headache denies URI symptoms of cough, shortness of breath, no fevers, no chills, no recent episode of nausea, vomiting ,diarrhea, no urinary symptoms of urgency, frequency, workup in the emergency room revealed worsening creatinine, and mild hyponatremia, with sodium of 128, CT brain showed no acute intracranial process, chest x-ray showed improvement with mild residual interstitial lung disease on the left, otherwise no acute process, MRI brain showed no acute intracranial abnormality, showed chronic microvascular ischemia, patient treated in the emergency room on with 1 L of IV fluid and now being admitted to [facility] due to worsening renal function and hyponatremia. hospital course 56-year-old gentleman with past medical history of chronic kidney disease stage 4, diabetic nephropathy, diastolic congestive heart failure, diabetes? mellitus recently discharged from [facility] after treated for new onset diastolic congestive heart failure and was discharged home on torsemide and was started back on losartan 50 mg since June 01? presented with lightheadedness dizziness blurred vision and diagnosed to have mild hyponatremia and acute on chronic kidney disease stage 4 and admitted to medical floor.. ? 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 they recommend outpatient workup to rule out bilateral renal artery stenosis and intolerance of Kelvin/ Arb since renal function back to baseline he is being discharged home with recommendations for close outpatient follow-up with Nephrology patient has history of labile hypertension and prone to orthostatic hypotensive type symptoms, his blood pressures were monitored closely he has been restarted back on all home medications including labetalol 200 b.i.d., Procardia XL 60 mg daily and dose of torsemide has been lowered to 20 mg patient is asymptomatic, had no recurrence of dizziness or blurred vision. in regard to diastolic heart failure patient appeared euvolemic recommend to resume torsemide low-dose 20 mg?. ?diabetes mellitus on insulin recommend to follow diabetic diet and exercise, continue gabapentin for diabetic neuropathy. ? History of depression anxiety/conversion disorder continue home medications. ?mild obesity, counseling done recommend low-calorie diet Time Spent with Patient Time attestation: Total time managing care of this patient today ____ minutes. Discharge coordination time: Greater than 30 minutes Quality: Safe Use of Opioids Does Pt have an Active Cancer Diagnosis on the Problem List?: No Quality: Stroke Does the patient have a stroke diagnosis?: No Physical Exam Vital Signs: Vital Signs: Last Vital Signs Temp 98.5 F 06/05/22 07:55 Pulse 77 06/05/22 07:55 Resp 18 06/05/22 07:55 BP 139/82 06/05/22 07:55 Pulse Ox 98 06/05/22 07:55 O2 Del Method 06/05/22 07:55 BMI result Body Mass Index 32.0 Const: Other: General? awake alert x3 sitting comfortably,in no acute distress.? Neck? supple no JVD. CVS? regular rate rhythm, Respiratory lungs clear to auscultation, no respiratory distress, no wheeze, no rhonchi. Gastrointestinal abdomen soft, nontender, bowel sounds audible, no guarding , no rigidity. Extremities no edema. Neuro nonfocal ,speech clear. Skin no rash psych appropriate affect DS: Data Data Completed and Pending Labs on day of discharge: Laboratory Results - last 24 hr 06/04/22 06/04/22 06/04/22 12:06 16:45 20:13 POC Glucose 151 H 105 125 H 06/05/22 07:35 POC Glucose 75 Discharge Plan Discharge Anticipated Discharge Date/Time: 06/05/22 10:19 Patient Disposition: Home Health Service Discharge Diagnosis: acute on chronic kidney disease Referrals: Sarthak Spencer MD [Primary Care Provider] - 1 Week Discharge Medications: New torsemide 20 mg tablet 20 mg PO DAILY Qty: 30 0RF Continued clonazepam 0.5 mg tablet 0.5 mg PO TID PRN (Reason: anxiety) Qty: 90 5RF (DME) lancets [FreeStyle Lancets] 28 gauge misc See Rx Instructions .MEDSUPPLY Qty: 150 5RF Rx Instructions: 4 times a day gabapentin 300 mg capsule 300 mg PO BID Qty: 60 8RF cholecalciferol (vitamin D3) [D3-2000] 50 mcg (2,000 unit) capsule 50 mcg PO DAILY Qty: 30 11RF omega-3 acid ethyl esters 1 gram capsule 2 cap PO BID 30 Days Qty: 120 11RF (DME) FreeStyle John 14 Day Sensor Kit See Rx Instructions .Route Qty: 1 0RF Rx Instructions: As directed (DME) blood pressure monitor [Blood Pressure Kit] Kit See Rx Instructions .Route Qty: 1 0RF Rx Instructions: As directed Tradjenta 5 mg tablet 5 mg PO DAILY 30 Days Qty: 30 6RF venlafaxine 150 mg capsule,extended release 24hr 150 mg PO DAILY meclizine 25 mg tablet 25 mg PO Q6H PRN (Reason: Dizziness) trazodone 150 mg tablet 150 mg PO BEDTIME PRN (Reason: Sleep) insulin aspart U-100 [Novolog FlexPen U-100 Insulin] 100 unit/mL (3 mL) insulin pen 14 unit subcut TIDAC bupropion HCl 150 mg tablet extended release 24 hr 150 mg PO DAILY Toujeo Max U-300 SoloStar 300 unit/mL (3 mL) insulin pen 70 unit subcut DAILY Rx Instructions: in the morning nifedipine 30 mg Tablet Extended Release 24hr 60 mg PO DAILY Qty: 30 0RF Protocol: Hold for SBP< HOLD for SBP < : 90 (DME) Blood Pressure Cuff Misc See Rx Instructions .Route Qty: 1 0RF Rx Instructions: As directed multivitamin with folic acid [Tab-A-George] 400 mcg tablet 1 tab PO DAILY (DME) pen needle, diabetic [Ultracare Pen Needle] 32 gauge x 3/16 needle See Rx Instructions .ROUTE .MEDSUPPLY Qty: 50 Rx Instructions: As directed famotidine 20 mg tablet 20 mg PO BID Qty: 180 8RF metoclopramide HCl 5 mg tablet 5 mg PO QID Qty: 360 2RF simethicone 180 mg capsule 180 mg PO TID Qty: 90 1RF labetalol 200 mg tablet 200 mg PO BID Qty: 60 3RF (DME) pen needle, diabetic [BD Kacey 2nd Gen Pen Needle] 32 gauge x 5/32 needle See Rx Instructions .MEDSUPPLY Qty: 400 6RF Rx Instructions: 5 times a day Discontinued losartan 50 mg tablet 50 mg PO DAILY Qty: 90 8RF Hold Instructions: Resume on 06/01/22. torsemide 20 mg Tablet 40 mg PO DAILY Qty: 60 0RF Protocol: Hold for SBP< HOLD for SBP < : 90 Discharge Orders: Discharge Order (Routine); Ordered 06/05/22 Ordered By: Med Mcneal Diet: Low fat, low cholesterol Activity on Discharge: As tolerated Stand Alone Forms: Patient Portal Discharge page Care Plan Goals: acute kidney failure resolved recommend outpatient follow-up with Dr. Stevenson blood pressure is stable,stop Losartan take torsemide 20 mg 1 tablet by mouth daily Health Concerns: diabetes mellitus need good blood sugar control follow low-calorie diet, ambulate as tolerated lower dose of insulin if noted to have low blood sugars Plan of Treatment: follow-up with primary care physician and Nephrology call for appointment Assessment: as above Patient Instructions: Heart Failure (GEN), Chronic Kidney Disease (GEN)
--- NOTE | 2022-06-05 10:37 | MHC.CLN ---
ppt dcd home with resumption of servcies
[2022-06-05] MEDS: Meclizine HCl 25 MG TABLET PO (10:40)
--- NOTE | 2022-06-05 10:40 | MHC.CM.PN ---
lefty message at [facility] that pt is dcd no response in allscripts left message at office for abimael [phone]
[2022-06-05 11:21] LABS: Glucose, Whole Blood 222 mg/dL (60-115)
[2022-06-05] MEDS: Insulin Lispro 100 UNIT/ML 3 ML VIAL SUBCUT (12:06)
== END 2022-06-05 13:36 | disposition home health service (06) | DRG 683 ==
LOC: HO.ED 17:34 → HO.EDOVER 17:57 → HO.S3 06-03 19:59
PROVIDERS: Physician Assistant Medical; Admitting Provider Hospitalist; Emergency Provider Emergency Medicine; PCP Internal Medicine; Visit Provider Hospitalist
DX: N17.9 Acute kidney failure, unspecified (principal); E87.1 Hypo-osmolality and hyponatremia; I13.0 Hypertensive heart and chronic kidney disease with heart failure and stage 1 through stage 4 chronic kidney disease, or unspecified chronic kidney disease; I50.32 Chronic diastolic (congestive) heart failure; N18.4 Chronic kidney disease, stage 4 (severe); E86.0 Dehydration; E11.40 Type 2 diabetes mellitus with diabetic neuropathy, unspecified; E11.22 Type 2 diabetes mellitus with diabetic chronic kidney disease; E78.5 Hyperlipidemia, unspecified; F41.9 Anxiety disorder, unspecified; I95.1 Orthostatic hypotension; F32.A Depression, unspecified; E66.9 Obesity, unspecified; K75.81 Nonalcoholic steatohepatitis (NASH); Z77.22 Contact with and (suspected) exposure to environmental tobacco smoke (acute) (chronic); Z20.822 Contact with and (suspected) exposure to COVID-19; Z68.32 Body mass index [BMI] 32.0-32.9, adult; Z79.4 Long term (current) use of insulin; Z79.899 Other long term (current) drug therapy
CPT/HCPCS: 0241U; 36415; 70450; 70551; 71045; 80048; 81003; 82077; 82947; 83735; 83880; 84484; 85027; 85610; 93005; 99285; J1643

== ENCOUNTER → 2022-06-11 09:50 | Outpatient (BNVA) | payer OTHER, SELFPAY | PROVIDERS: PCP Internal Medicine; Visit Provider Internal Medicine Cardiovascular Disease | DX: I50.30 Unspecified diastolic (congestive) heart failure (principal) | CPT/HCPCS: 99212 ==

== ENCOUNTER 2022-06-19 05:47 | Inpatient (IN) | payer OTHER, SELFPAY ==
[2022-06-19] VITALS (7 sets, daily range): BP systolic 75–131; BP diastolic 52–68; PULSE 80–102; RESP 14–26; TEMP 36.5–38.2; O2SAT 91–99; BMI 31.7; BMI 32.1
--- NOTE | ~2022-06-19 | XR_ITS ---
EXAMINATION: XR CHEST CLINICAL INFORMATION: Hypoxia COMPARISON: 06/19/2022 TECHNIQUE: Frontal view of the chest was obtained. FINDINGS: Diffuse opacities in left lung and right mid to lower lung opacities on the right. These are somewhat flocculent. The cardiac silhouette is within normal limits. No effusion. Impression; opacities left greater than the right lung most consistent with areas of infiltrate. Pulmonary edema cannot be excluded
--- NOTE | ~2022-06-19 | XR_ITS ---
EXAMINATION: XR ABDOMEN KUB CLINICAL INDICATION: Abdominal pain, evaluate bowel obstruction. COMPARISON: MRCP 05/17/2022. CT abdomen/pelvis 05/16/2022. TECHNIQUE: AP view of the abdomen. FINDINGS: Dilated loops of small bowel measuring up to 4.7 cm. The colon is predominantly under distended. No significant stool burden. Lennon catheter with some residual contrast in the urinary bladder. No acute osseous abnormalities. Partially imaged left greater than right airspace opacities XR/XR KUB IMPRESSION: Dilated loops of small bowel raising the possibility of a small bowel obstruction in the appropriate clinical context. Recommend correlation with a CT of the abdomen/pelvis.
--- NOTE | ~2022-06-19 | XR_ITS ---
EXAMINATION: XR CHEST CLINICAL INFORMATION: Cough. COMPARISON: 06/02/2022 TECHNIQUE: Frontal view of the chest was obtained. FINDINGS: Cardiac leads overlie the chest. Mild hazy opacities are seen at the left base. No pleural effusion or pneumothorax. The cardiomediastinal silhouette is within normal limits. XR/XR chest 1V IMPRESSION: Mild hazy left basilar opacities are noted which could be infectious or inflammatory. Aspiration possible.
--- NOTE | ~2022-06-19 | XR_ITS ---
EXAMINATION: XR CHEST CLINICAL INFORMATION: Pulmonary edema. Infiltrates COMPARISON: 06/22/22 TECHNIQUE: Upright frontal portable view of the chest was obtained. FINDINGS: Devices overlie the patient. The cardiac silhouette is not enlarged. The jossy and vasculature are obscured. Severe diffuse airspace and interstitial opacities throughout the left lung unchanged. Moderately severe airspace and interstitial opacities greatest in the mid and lower lung on the right unchanged. No definite pneumothorax or significant pleural fluid. Small calcification adjacent to the right humeral head. There are osteophytes in the spine. XR/XR chest 1V IMPRESSION: Severe left and moderate right airspace and interstitial opacities. Asymmetric edema or multifocal pneumonia could give this appearance. No significant interval change
--- NOTE | ~2022-06-19 | XR_ITS ---
EXAMINATION: XR CHEST CLINICAL INFORMATION: Lung infiltrates, follow-up. COMPARISON: 06/24/2022 and 06/22/2022 chest radiographs. TECHNIQUE: Frontal view of the chest was obtained. FINDINGS: Bilateral patchy infiltrates are seen, left greater than right with similar distribution and severity. The heart and mediastinal structures are unremarkable. XR/XR chest 1V IMPRESSION: Bilateral patchy infiltrates, left greater than right with similar appearance.
--- NOTE | ~2022-06-19 | XR_ITS ---
EXAMINATION: XR CHEST CLINICAL INFORMATION: Hypoxia. COMPARISON: 06/20/2022 chest radiograph. TECHNIQUE: Frontal view of the chest was obtained. FINDINGS: Again seen are bilateral patchy opacities with nodularity, left greater than right with similar distribution and severity. The heart and mediastinal structures are unremarkable. XR/XR chest 1V IMPRESSION: Bilateral patchy infiltrates, left greater than right similar appearance.
--- NOTE | 2022-06-19 06:13 | ECG_ITS ---
Test Reason : short of breath Blood Pressure : / mmHG Vent. Rate : 081 BPM Atrial Rate : 081 BPM P-R Int : 142 ms QRS Dur : 078 ms QT Int : 376 ms P-R-T Axes : 053 024 065 degrees QTc Int : 436 ms Normal sinus rhythm Nonspecific T wave abnormality Abnormal ECG When compared with ECG of 02-JUN-2022 14:30, No significant change was found Referred By: Generic ED Physician Electronically Signed By:KHUSHBU ALICEA MD
--- NOTE | 2022-06-19 06:29 | ED.NAVMDI ---
HPI - Nausea/Vomiting/Diarrhea General Chief complaint: Nausea/Vomiting/Diarrhea Stated complaint: WEAK,NAUSEA/VOMITING,X4 DAYS,LOW BP 75/50 PER EMS Time Seen by Provider: 06/19/22 06:15 Source: patient and family (Sister) Mode of arrival: EMS Limitations: no limitations History of Present Illness HPI Narrative: 56-year-old male who presents emergency department for evaluation of near syncope, weakness, nausea, vomiting and diarrhea. Patient states that yesterday morning he developed nausea vomiting and severe diarrhea. He states that he had multiple episodes of vomiting and multiple episodes of diarrhea. He states that he was feeling weak. He was not able to eat or drink anything the last 24 hours. Apparently was in the bathroom on the toilet when he slid off. His sister was there and states that he did not hit his head but did appear ill so she called 911 and had the patient transported to the emergency department for evaluation. Patient states these developed a cough over the last 24 hours which is nonproductive. He is also having chest pain which is worse with breathing. He feels short of breath. The patient had to recent hospitalizations at [facility]. First admission was from 05/16/2022 until 05/21 for new onset congestive heart failure treated with diuretics. Patient's 2nd admission was from 06/02/2022 until 06/05/2022 for dizziness, weakness, hyponatremia and worsening renal failure. Patient is not treated with any antibiotics recently and has not had any travel outside of the country. Related Data Home Medications Medication Instructions Recorded Confirmed venlafaxine 150 mg 150 mg PO DAILY 10/30/21 06/19/22 capsule,extended release 24 hr multivitamin with folic acid 400 1 tab PO DAILY 03/06/22 06/19/22 mcg tablet (Tab-A-George) pen needle, diabetic 32 gauge x #50 ea 03/06/22 06/02/2206/14 (Ultracare Pen Needle) bupropion HCl 150 mg 24 hr tablet, 150 mg PO DAILY 05/16/22 06/19/22 extended release insulin aspart U-100 100 unit/mL 14 unit subcut TIDAC 05/16/22 06/19/22 (3 mL) subcutaneous pen (Novolog FlexPen U-100 Insulin aspart) insulin glargine U-300 conc 300 70 unit subcut DAILY 05/16/22 06/11/22 unit/mL (3 mL) subcutaneous pen (TouKreditech Max U-300 SwapdomoStar) meclizine 25 mg tablet 25 mg PO Q6H PRN Dizziness 05/16/22 06/11/22 trazodone 150 mg tablet 150 mg PO BEDTIME PRN Sleep 05/16/22 06/19/22 Previous Rx's Medication Instructions Recorded clonazepam 0.5 mg tablet 0.5 mg PO TID PRN anxiety #90 tabs 01/31/21 lancets 28 gauge (FreeStyle #150 ea 05/12/21 Lancets) miscellaneous medical supply #1 ea 05/25/21 (Blood Pressure Cuff) pen needle, diabetic 32 gauge x #400 ea 08/11/21 (BD Kacey 2nd Gen Pen Needle) cholecalciferol (vitamin D3) 50 50 mcg PO DAILY #30 caps 08/30/21 mcg (2,000 unit) capsule (D3-2000) omega-3 acid ethyl esters 1 gram 2 cap PO BID 30 days #120 caps 09/04/21 capsule flash glucose sensor (FreeStyle #1 ea 04/10/22 John 14 Day Sensor kit) famotidine 20 mg tablet 20 mg PO BID #180 tabs 05/01/22 metoclopramide HCl 5 mg tablet 5 mg PO QID #360 tabs 05/01/22 simethicone 180 mg capsule 180 mg PO TID #90 caps 05/01/22 linagliptin 5 mg tablet (Tradjenta) 5 mg PO DAILY 30 days #30 tabs 05/16/22 torsemide 20 mg tablet 20 mg PO DAILY #30 tabs 06/04/22 gabapentin 300 mg capsule 300 mg PO BID #60 caps 06/07/22 labetalol 300 mg tablet 300 mg PO BID #60 tabs 06/11/22 blood pressure monitor (Blood #1 ea 06/12/22 Pressure Kit) nifedipine 60 mg tablet,extended 120 mg PO DAILY 90 days #180 tabs 06/13/22 release 24 hr Allergies Allergy/AdvReac Type Severity Reaction Status Date / Time cephalexin [From KEFLEX] Allergy Mild ITCHY Verified 05/31/22 14:14 THROAT lisinopril [LISINOPRIL] Allergy Unknown SWELLING Verified 05/31/22 14:14 COUGH Review of Systems Review of Systems: Yes all other systems are reviewed and are negative ON LICENSE OF [facility] Past Medical History ON LICENSE OF [facility] Narrative: Social history: The patient lives at home with his sister. He denies tobacco, alcohol and drug use. 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 Social History Social History Household Members: Family Household Members Other:: SISTER Housing: Apartment Do you presently have visiting nurse or other home services: Yes Alcohol intake: never Patient Tobacco Use Status: Never used Tobacco e-Cigarette/Vaping Use: Never Used Second Hand Smoke Exposure: Yes (HISTORY OF SECOND HAND SMOKE EXPOSURE) Advance Directives: Yes Advance Directives on File: Yes Advance Directives Date on File: 05/05/20 service: No Current occupational status: disabled Current occupation: right handed Cognitive needs: No Hearing needs: No Vision needs: No Physical Exam Vital Signs: Vital Signs: Last Vital Signs Temp 100.1 F 06/19/22 06:42 Pulse 101 H 06/19/22 08:27 Resp 20 06/19/22 08:27 BP 112/58 L 06/19/22 08:27 Pulse Ox 99 06/19/22 08:27 O2 Del Method 06/19/22 08:27 O2 Flow Rate 5 06/19/22 08:27 Oxygen Flow Rate 4 06/19/22 06:00 BMI result Body Mass Index 31.7 Const: Other: Awake, alert, male patient, patient appears to be ill, does answer questions appropriately HEENT: Head: Yes normal to inspection, Yes normocephalic and Yes atraumatic Ears: external ears normal General nose exam: Normal external nose present Face and sinus: Yes normal facial exam Mouth: other (Very dry mucous membranes) Throat: Yes posterior oropharynx normal Eyes: General: appearance normal, both eyes and all related structures Pupils: Equal, round and reactive pupils present Neck: Neck: Yes normal visual inspection, Yes no lymphadenopathy, Yes trachea midline and Yes supple Chest: Chest palpation & inspection: normal inspection of the chest and normal palpation of entire chest wall Resp: Effort & Inspection: normal respiratory effort and able to speak in complete sentences Auscultation: clear to auscultation bilaterally Cardio: Rate: regular rate Rhythm: regular rhythm Heart sounds: S1 normal heart sound present, S2 normal heart sound present and no murmurs GI: Inspection: Yes normal to inspection Palpation (GI): Soft to palpation, Tenderness to palpation present (GI) (Moderate diffuse abdominal tenderness) and no guarding Auscultation: normal bowel sounds : General: Yes no CVA tenderness Back/Spine/Pelvis: Back: no CVA tenderness Skin: General skin exam: no rashes or lesions noted Neuro: Cranial nerves: Yes CN's II-XII intact bilaterally and Yes Equal, round and reactive pupils present Cognition (Neuro): normal cognition Motor exam (neuro): 5/5 motor strength present throughout Extrem: General: Yes normal to inspection Psych: Appearance: grossly normal Speech and movement: Normal speech and movement present Affect: normal affect Attitude: cooperative Medications Administered Generic Name Dose Route Start Last Admin Trade Name Freq PRN Reason Stop Dose Admin Sodium Chloride 2,121 mls @ 2,121 mls/hr 06/19/22 08:03 06/19/22 08:23 Ns IV 06/19/22 09:02 2,121 mls/hr .Q1H STA Administration Discontinued Medications Generic Name Dose Route Start Last Admin Trade Name Freq PRN Reason Stop Dose Admin Acetaminophen 975 mg 06/19/22 07:02 06/19/22 07:08 Acetaminophen 325 Mg Tablet PO 06/19/22 07:03 975 mg ONCE STA Administration Sodium Chloride 1,000 mls @ 999 mls/hr 06/19/22 06:30 06/19/22 06:38 Ns IV 06/19/22 07:30 999 mls/hr .Q1H1M STA Administration Piperacillin Sod/Tazobactam 50 mls @ 100 mls/hr 06/19/22 07:45 06/19/22 08:23 Sod 3.375 gm/ Sodium Chloride IV 06/19/22 08:14 100 mls/hr ONCE ONE Administration Medical Decision Making Medical Decision Making MDM Narrative: 56-year-old male who presents emergency department for evaluation of 24 hours of nausea, vomiting and diarrhea with a near syncopal episode that occurred while he was on the toilet prior to coming to the emergency department. The patient had 2 recent hospitalizations here at [facility] for new onset congestive heart failure and hypo tree me a with worsening renal failure. Patient's vital signs revealed a low O2 saturation 88% on room air and 94% on 4 L via nasal cannula. Patient's mucous membranes appear to be very dry and the patient has diffuse abdominal tenderness. I ordered a CBC, CMP, lipase, lactic acid, PT/INR, PTT, troponin, C diff, GI panel, COVID-19 and lipase. Patient was ordered to get normal saline IV x1 L and Tylenol 975 mg orally for a rectal temperature of 100.1 degrees F. 0800: My interpretation of patient's laboratory evaluation is as follows: WBC elevated 18,700 with a left shift 91 neutrophils 3 lymphocytes, anemia with an H&H of 12.2 and 35.1, normal platelet count. PT/INR, PTT normal. Sodium low 139, chloride low 94, bicarb low 18, BUN elevated 74, creatinine elevated 5.79. Glucose elevated 209. Lactic acid elevated 2.6. COVID-19 negative, influenza negative. Chest x-ray one view my interpretation is subtle left lower lobe infiltrate, this correlates with the radiology interpretation as well. The patient will be treated for left lower lobe pneumonia with Zosyn 3.375 mg IV (reduced dose secondary to renal failure). Patient most likely has acute on chronic kidney injury due to prerenal volume depletion. I will discuss admission with the covering hospitalist. 0826: I did discuss over tiger text, the patient's presentation with the covering hospitalist, Brynn Mane and the patient will be admitted to the hospital service. 0835: The patient's lactic acid was repeated and went up to 3.2 however the patient has not finished his 30 cc/kilogram fluid bolus. Differential Diagnosis Differential diagnosis includes but is not limited to viral syndrome, C diff colitis, electrolyte abnormality, dehydration, volume depletion Consult Healthcare Provider Management of the patient was discussed with: Hospitalist Lab Data MDM Lab Attestation statement: I reviewed the patient's lab results. See MDM for discussion 06/19/22 06:30 06/19/22 06:30 Labs: Lab Results 06/19/22 06/19/22 06/19/22 Range/Units 06:30 06:30 06:30 WBC 18.7 H (4.8-10.8) X10*3/uL RBC 4.09 L (4.60-5.80) X10*6/uL Hgb 12.2 L D (14.0-18.0) g/dl Hct 35.1 L D (42.0-52.0) % MCV 85.8 (80.0-98.0) fL MCH 29.8 (27.0-33.0) pg MCHC 34.8 (31.0-36.0) g/dl RDW 12.7 (11.0-16.0) % Plt Count 242 D (160-400) X10*3/uL MPV 10.7 (9.4-12.4) fL Immature Gran % (Auto) 0.7 H (0.0-0.4) % Neut % (Auto) 91.1 H (45-73) % Lymph % (Auto) 3.2 L (20-40) % [place] % (Auto) 4.7 (2-11) % Eos % (Auto) 0.0 (0-4) % Baso % (Auto) 0.3 (0-2) % Lymph # (Auto) 0.6 L (1.2-4.9) X10*3/uL [place] # (Auto) 0.9 (0.1-1.2) X10*3/uL Eos # (Auto) 0.0 (0.0-0.4) X10*3/uL Baso # (Auto) 0.1 (0.0-0.2) X10*3/uL Abs Immat Gran (auto) 0.13 H (0.00-0.03) X10*3/uL Absolute Neuts (auto) 17.0 H (2.0-8.3) x10*3/uL Absolute Nucleated RBC 0.000 (0.0-0.012) X10*3/uL Nucleated RBC % (auto) 0.0 (0.0-0.2) /100WBC Smear Tech's Comments VERIFIED PT (10.0-13.1) SEC INR (0.9-1.1) APTT (26.0-36.4) SEC Sodium 131 L (135-145) mmol/L Potassium 4.6 (3.3-5.1) mmol/L Chloride 94 L (96-108) mmol/L Carbon Dioxide 18 L (22-29) mmol/L Anion Gap 24 H (12-20) BUN 74 H (9-16) mg/dL Creatinine 5.79 H* (0.5-1.4) mg/dL Estim Creat Clear Calc 16.4 Estimated GFR 10 Random Glucose 209 H (60-115) mg/dL Lactic Acid 2.6 H* (0.5-2.0) mmol/L Calcium 9.1 (8.4-10.2) mg/dL Total Bilirubin 0.8 (0.0-1.0) mg/dL AST 18 (5-37) U/L ALT 35 (0-40) U/L Alkaline Phosphatase 154 H (39-117) U/L Troponin I High Sens (<3.5-35.0) ng/L Total Protein 7.8 (6.5-8.0) g/dL Albumin 4.4 (3.5-5.0) g/dL Lipase 30 (8-78) U/L COVID-19 (ANGI) (Negative) COVID-19 Clin Com Influenza Type A (MENDEL) (Negative) Influenza Type B (MENDEL) (Negative) Influenza A & B Note 06/19/22 06/19/22 06/19/22 Range/Units 06:37 06:37 06:37 WBC (4.8-10.8) X10*3/uL RBC (4.60-5.80) X10*6/uL Hgb (14.0-18.0) g/dl Hct (42.0-52.0) % MCV (80.0-98.0) fL MCH (27.0-33.0) pg MCHC (31.0-36.0) g/dl RDW (11.0-16.0) % Plt Count (160-400) X10*3/uL MPV (9.4-12.4) fL Immature Gran % (Auto) (0.0-0.4) % Neut % (Auto) (45-73) % Lymph % (Auto) (20-40) % [place] % (Auto) (2-11) % Eos % (Auto) (0-4) % Baso % (Auto) (0-2) % Lymph # (Auto) (1.2-4.9) X10*3/uL [place] # (Auto) (0.1-1.2) X10*3/uL Eos # (Auto) (0.0-0.4) X10*3/uL Baso # (Auto) (0.0-0.2) X10*3/uL Abs Immat Gran (auto) (0.00-0.03) X10*3/uL Absolute Neuts (auto) (2.0-8.3) x10*3/uL Absolute Nucleated RBC (0.0-0.012) X10*3/uL Nucleated RBC % (auto) (0.0-0.2) /100WBC Smear Tech's Comments PT (10.0-13.1) SEC INR (0.9-1.1) APTT (26.0-36.4) SEC Sodium (135-145) mmol/L Potassium (3.3-5.1) mmol/L Chloride (96-108) mmol/L Carbon Dioxide (22-29) mmol/L Anion Gap (12-20) BUN (9-16) mg/dL Creatinine (0.5-1.4) mg/dL Estim Creat Clear Calc Estimated GFR Random Glucose (60-115) mg/dL Lactic Acid (0.5-2.0) mmol/L Calcium (8.4-10.2) mg/dL Total Bilirubin (0.0-1.0) mg/dL AST (5-37) U/L ALT (0-40) U/L Alkaline Phosphatase (39-117) U/L Troponin I High Sens 6.3 (<3.5-35.0) ng/L Total Protein (6.5-8.0) g/dL Albumin (3.5-5.0) g/dL Lipase (8-78) U/L COVID-19 (ANGI) Negative (Negative) COVID-19 Clin Com See Note Influenza Type A (MENDEL) Negative (Negative) Influenza Type B (MENDEL) Negative (Negative) Influenza A & B Note See Note 06/19/22 06/19/22 Range/Units 07:25 08:20 WBC (4.8-10.8) X10*3/uL RBC (4.60-5.80) X10*6/uL Hgb (14.0-18.0) g/dl Hct (42.0-52.0) % MCV (80.0-98.0) fL MCH (27.0-33.0) pg MCHC (31.0-36.0) g/dl RDW (11.0-16.0) % Plt Count (160-400) X10*3/uL MPV (9.4-12.4) fL Immature Gran % (Auto) (0.0-0.4) % Neut % (Auto) (45-73) % Lymph % (Auto) (20-40) % [place] % (Auto) (2-11) % Eos % (Auto) (0-4) % Baso % (Auto) (0-2) % Lymph # (Auto) (1.2-4.9) X10*3/uL [place] # (Auto) (0.1-1.2) X10*3/uL Eos # (Auto) (0.0-0.4) X10*3/uL Baso # (Auto) (0.0-0.2) X10*3/uL Abs Immat Gran (auto) (0.00-0.03) X10*3/uL Absolute Neuts (auto) (2.0-8.3) x10*3/uL Absolute Nucleated RBC (0.0-0.012) X10*3/uL Nucleated RBC % (auto) (0.0-0.2) /100WBC Smear Tech's Comments PT 12.4 (10.0-13.1) SEC INR 1.1 (0.9-1.1) APTT 31.7 (26.0-36.4) SEC Sodium (135-145) mmol/L Potassium (3.3-5.1) mmol/L Chloride (96-108) mmol/L Carbon Dioxide (22-29) mmol/L Anion Gap (12-20) BUN (9-16) mg/dL Creatinine (0.5-1.4) mg/dL Estim Creat Clear Calc Estimated GFR Random Glucose (60-115) mg/dL Lactic Acid 3.2 H* (0.5-2.0) mmol/L Calcium (8.4-10.2) mg/dL Total Bilirubin (0.0-1.0) mg/dL AST (5-37) U/L ALT (0-40) U/L Alkaline Phosphatase (39-117) U/L Troponin I High Sens (<3.5-35.0) ng/L Total Protein (6.5-8.0) g/dL Albumin (3.5-5.0) g/dL Lipase (8-78) U/L COVID-19 (ANGI) (Negative) COVID-19 Clin Com Influenza Type A (MENDEL) (Negative) Influenza Type B (MENDEL) (Negative) Influenza A & B Note Independent Interpretation Interpretation: My independent interpretation the patient's 12 EKG done at 06:17 hours is as follows: Normal sinus rhythm rate of 81, normal AR interval, QRS duration QTC interval, no ST segment elevation no ST segment depression, no PACs no PVCs this is a normal EKG. Radiology Impression Discussion of test interpretation with radiology: I have reviewed the radiologist's reading. Radiologist Impression: XR chest 1V IMPRESSION: Mild hazy left basilar opacities are noted which could be infectious or inflammatory. Aspiration possible. Dictated By:Donavon Babcock MDSigned By:<Electronically signed by Donavon Babcock MD in OV>06/19/22 [id number] Independent Historian Clinical information obtained from an independent historian. History obtained from or confirmed by: Other (Sister, Justina ) External Record Review External record reviewed: Inpatient record Discharge Plan Discharge Clinical Impression: Pneumonia, Acute on chronic kidney failure, Acute dehydration, Vomiting, Diarrhea Prescriptions: No Action clonazepam 0.5 mg tablet 0.5 mg PO TID PRN (Reason: anxiety) Qty: 90 5RF (DME) lancets [FreeStyle Lancets] 28 gauge misc See Rx Instructions .MEDSUPPLY Qty: 150 5RF Rx Instructions: 4 times a day cholecalciferol (vitamin D3) [D3-2000] 50 mcg (2,000 unit) capsule 50 mcg PO DAILY Qty: 30 11RF omega-3 acid ethyl esters 1 gram capsule 2 cap PO BID 30 Days Qty: 120 11RF (DME) FreeStyle John 14 Day Sensor Kit See Rx Instructions .Route Qty: 1 0RF Rx Instructions: As directed Tradjenta 5 mg tablet 5 mg PO DAILY 30 Days Qty: 30 6RF gabapentin 300 mg capsule 300 mg PO BID Qty: 60 8RF (DME) blood pressure monitor [Blood Pressure Kit] Kit See Rx Instructions .Route Qty: 1 0RF Rx Instructions: As directed nifedipine 60 mg tablet extended release 24hr 120 mg PO DAILY 90 Days Qty: 180 1RF venlafaxine 150 mg capsule,extended release 24hr 150 mg PO DAILY meclizine 25 mg tablet 25 mg PO Q6H PRN (Reason: Dizziness) trazodone 150 mg tablet 150 mg PO BEDTIME PRN (Reason: Sleep) insulin aspart U-100 [Novolog FlexPen U-100 Insulin] 100 unit/mL (3 mL) insulin pen 14 unit subcut TIDAC bupropion HCl 150 mg tablet extended release 24 hr 150 mg PO DAILY Toujeo Max U-300 SoloStar 300 unit/mL (3 mL) insulin pen 70 unit subcut DAILY Rx Instructions: in the morning torsemide 20 mg tablet 20 mg PO DAILY Qty: 30 0RF (DME) Blood Pressure Cuff Misc See Rx Instructions .Route Qty: 1 0RF Rx Instructions: As directed multivitamin with folic acid [Tab-A-George] 400 mcg tablet 1 tab PO DAILY (DME) pen needle, diabetic [Ultracare Pen Needle] 32 gauge x 3/16 needle See Rx Instructions .ROUTE .MEDSUPPLY Qty: 50 Rx Instructions: As directed famotidine 20 mg tablet 20 mg PO BID Qty: 180 8RF metoclopramide HCl 5 mg tablet 5 mg PO QID Qty: 360 2RF simethicone 180 mg capsule 180 mg PO TID Qty: 90 1RF labetalol 300 mg tablet 300 mg PO BID Qty: 60 3RF (DME) pen needle, diabetic [BD Kacey 2nd Gen Pen Needle] 32 gauge x /32 needle See Rx Instructions .MEDSUPPLY Qty: 400 6RF Rx Instructions: 5 times a day
[2022-06-19] MEDS: 0.9 % Sodium Chloride 1,000 ML 999 ML IV (06:38)
[2022-06-19 06:43] LABS: Basophils Absolute Auto 0.1 X10*3/uL (0.0-0.2); Basophils Percent Auto 0.3 % (0-2); Hematocrit 35.1 % (42.0-52.0); Hemoglobin 12.2 g/dl (14.0-18.0); Imm Gran Abs Auto 0.13 X10*3/uL (0.00-0.03); Imm Gran Pct Auto 0.7 % (0.0-0.4); Lymphocytes Absolute Auto 0.6 X10*3/uL (1.2-4.9); Lymphocytes Percent Auto 3.2 % (20-40); MANUAL DIFF FLAG SCAN; Mean Corpuscular HGB Conc 34.8 g/dl (31.0-36.0); Mean Corpuscular Hemoglobin 29.8 pg (27.0-33.0); Mean Corpuscular Volume 85.8 fL (80.0-98.0); Mean Platelet Volume 10.7 fL (9.4-12.4); Monocytes Absolute Auto 0.9 X10*3/uL (0.1-1.2); Monocytes Percent Auto 4.7 % (2-11); Neutrophils Percent Auto 91.1 % (45-73); Platelet Count 242 X10*3/uL (160-400); Red Blood Count 4.09 X10*6/uL (4.60-5.80); Red Cell Distribution Width 12.7 % (11.0-16.0); SCAN SMEAR FLAG 1; White Blood Count 18.7 X10*3/uL (4.8-10.8)
[2022-06-19 06:59] LABS: SLIDE REVIEW VERIFIED
[2022-06-19 07:05] LABS: COVID-19 Test Negative (Negative); IDNOW Serial# 08D9AD1C; IDNOW Serial# BCCEAD1C; Influenza A Negative (Negative); Influenza B2 Negative (Negative)
[2022-06-19 07:07] LABS: Alanine Aminotransferase 35 U/L (0-40); Albumin Level 4.4 g/dL (3.5-5.0); Alkaline Phosphatase 154 U/L (39-117); Anion Gap 24 (12-20); Aspartate Amino Transferase 18 U/L (5-37); Bilirubin Total 0.8 mg/dL (0.0-1.0); Blood Urea Nitrogen 74 mg/dL (9-16); Calcium 9.1 mg/dL (8.4-10.2); Carbon Dioxide 18 mmol/L (22-29); Chloride 94 mmol/L (96-108); Creatinine Clr Calc Pharmacy 16.4; Estimated Glomerular Filt Rate 10; Glucose Random 209 mg/dL (60-115); Lactic Acid 2.6 mmol/L (0.5-2.0); Lipase 30 U/L (8-78); Potassium 4.6 mmol/L (3.3-5.1); Sodium 131 mmol/L (135-145); Total Protein 7.8 g/dL (6.5-8.0)
[2022-06-19 07:08] LABS: Troponin-I High Sensitivity 6.3 ng/L (<3.5-35.0)
[2022-06-19] MEDS: Acetaminophen 325 MG TABLET 975 MG PO (07:08)
[2022-06-19 07:45] LABS: INTERNATIONAL NORM RATIO 1.1 (0.9-1.1); Prothrombin Time 12.4 SEC (10.0-13.1)
[2022-06-19 07:48] LABS: Partial Thromboplastin Time 31.7 SEC (26.0-36.4)
[2022-06-19] MEDS: 0.9 % Sodium Chloride 2,121 ML 2121 ML IV (08:23)
[2022-06-19] MEDS: Piperacillin Sodium/Tazobactam 3.375 GM in 0.9 % Sodium Chloride 50 ML IV (08:23)
--- NOTE | 2022-06-19 08:29 | PC.NURSE ---
Pt is alert/oriented, appears generally weak. Skin jaundiced, warm and dry. Breathing unlabored. Diarrhea, cleaned for mod amt. however d/t liquid consistency unable to obtain stool specimen. Per sister fall at home with n/v/d x 2 days. Fluids and abx infusing. sinus tach on tele. Plan for indwelling cath to monitor urine output. Second IV access obtained. 99% on 5lpm, decreased to 3lpm.
[2022-06-19 08:38] LABS: Reflex Lactate? Lactic Acid Added
[2022-06-19 08:39] LABS: Lactic Acid 3.2 mmol/L (0.5-2.0)
[2022-06-19 09:13] LABS: Appearance Urine Cloudy; Color Urine Yellow; Glucose Urine UA Negative (Negative); Leukocyte Esterase Urine Trace (Negative); Nitrite Urine Negative (Negative); Specific Gravity - Urine 1.015 (1.005-1.025); UMIC TRIGGER UACC YES; Urine Blood Negative (Negative); Urine Ketones Negative (Negative); Urine Protein 300 (3+) mg/dL (Neg-Trace)
[2022-06-19 09:29] LABS: Bacteria Urine None Seen (None Seen); Calcium Oxalate Crystals Urine Present; RBC Urine 0-2 /HPF (0-2); Squamous Epithelial Cell Urine 0-2 /HPF (0-2); WBC Urine 0-5 /HPF (0-5)
--- NOTE | 2022-06-19 10:01 | PC.NURSE ---
Repeat lactic to be drawn at 1030 (two hrs after last elevated) Old order d/c per Dr Kruger.
--- NOTE | 2022-06-19 10:15 | MHC.EDTECH ---
pt has a BM. BM was liquid, green in color, and full of mucus. pt cleaned and repositioned. pt resting peacefully at this time.
[2022-06-19 10:23] LABS: Reflex Lactate? Lactic Acid Added
--- NOTE | 2022-06-19 10:24 | PHA.MEDREC ---
Pharmacy Consult ? Medication Reconciliation Pharmacy has completed the medication reconciliation. Patient recognized most of his medications. Unsure about torsemide and nifedpine that were start on a previous admission. Confirmed with [facility] that both medications were deleivered to patients house. Opal Brown, WillD
--- NOTE | 2022-06-19 10:56 | PC.NURSE ---
Repeat lactic drawn. Pt more alert/awake.
--- NOTE | 2022-06-19 11:25 | PM.IMHP ---
History of Present Illness Date of Service: 06/19/22 Attending physician on admission: Joel Lara Chief Complaint: n/v/d, cough, near syncope 56-year-old male with history of insulin-dependent type 2 diabetes, Yang, hypertension, depression, conversion disorder, chronic constipation, vertigo, CKD stage 3, HFpEF, and obesity?presented to the ED earlier this morning for evaluation of vomiting, diarrhea, and near syncopal episode. He states yesterday morning has developed recurrent copious watery diarrhea with associated urgency and abdominal pressure. There has been some fecal incontinence as well. He has had some chills but denies any fevers. He denies nausea but did have a single episode of vomiting this morning. He has also felt weak and this morning while having a bowel movement fell forward to the floor though he denies loss of consciousness or head injury. He also reports a dry cough that started yesterday afternoon with associated shortness of breath and pleuritic chest pain. He and his son, Mt who is present at bedside, report he has also had decreased coordination of extremities and has fallen over last few weaks and he is reporting neck pain with neck/head often falling in forward flexion. No visual changes, sore throat, headaches, paresthesias, focal weakness. Denies any sick contacts or consumption of bad foods. No recent travel. The patient was recently admitted 3 times in the last 2 months for new onset CHF, LEDA, hyponatremia. Was treated with single doses of flagyl and levaquin, but did not receive full course of abx during admissions. On arrival, vital signs stable though low normal oximetry of 91%, placed on 4 L supplemental O2, weaned to 2 L maintaining oximetry 95%. He has a leukocytosis of 18.7 with left shift. Worsening renal function with creatinine 5.79, BUN 74. Sodium 131, potassium 4.6, chloride 94, CO2 18, anion gap 24, glucose 209. Initial lactic acid 2.6, repeat 3.2 improved to 2.5 following IV NS at 30 cc/kg. Urinalysis unremarkable. CXR showing mild hazy left basilar opacities which could be infectious or inflammatory, aspiration possible. In the ED, treated with IVF and Zosyn. Review of Systems Review of Systems: General: + generalized weakness, fatigue, chills. No fevers, malaise, unintentional weight loss HEENT: No blurred vision, diplopia. No sore throat, nasal congestion, rhinorrhea, sinus pain, ear pain Cardiovascular: + pleuritic chest pain. No chest pressure, palpitations, or leg edema Respiratory: + shortness of breath, nonproductive cough. No wheezing GI: + abdominal pain + diarrhea + vomiting x1. No constipation, melena, hematochezia : No dysuria, hematuria, increased urinary frequency, decreased urinary output MSK: No myalgia, back pain. +neck pain Neuro: No headaches, weakness, paresthesias Skin: No rashes or lesions [facility] Medical History Acute hyponatremia Anxiety Chronic hyperglycemia CKD (chronic kidney disease) CKD (chronic kidney disease) CKD (chronic kidney disease) stage 3, GFR 30-59 ml/min CKD (chronic kidney disease) stage 4, GFR 15-29 ml/min Depression Diabetes Diabetes mellitus with coincident hypertension Diabetes type 2, uncontrolled Diabetic nephropathy associated with type 2 diabetes mellitus Diabetic neuropathy associated with type 2 diabetes mellitus Dyslipidemia Essential hypertension GERD (gastroesophageal reflux disease) Hepatitis High cholesterol Hypercalcemia Hyperlipidemia Hypertension 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 Surgical History H/O colonoscopy History of esophagogastroduodenoscopy (EGD) Hx of arthroscopy of knee Hx of arthroscopy of right knee Social History Household Members: Family Household Members Other:: SISTER Housing: Apartment Do you presently have visiting nurse or other home services: Yes Alcohol intake: never Patient Tobacco Use Status: Never used Tobacco e-Cigarette/Vaping Use: Never Used Second Hand Smoke Exposure: Yes (HISTORY OF SECOND HAND SMOKE EXPOSURE) Advance Directives: Yes Advance Directives on File: Yes Advance Directives Date on File: 05/05/20 service: No Current occupational status: disabled Current occupation: right handed Cognitive needs: No Hearing needs: No Vision needs: No Meds Allergies Allergy/AdvReac Type Severity Reaction Status Date / Time cephalexin [From KEFLEX] Allergy Mild ITCHY Verified 05/31/22 14:14 THROAT lisinopril [LISINOPRIL] Allergy Unknown SWELLING Verified 05/31/22 14:14 COUGH Home Medications Medication Instructions Recorded Confirmed Last Taken Type venlafaxine 150 mg 150 mg PO DAILY 10/30/21 06/19/22 06/18/22 History capsule,extended release 24 hr multivitamin with folic acid 400 1 tab PO DAILY 03/06/22 06/19/22 06/18/22 History mcg tablet (Tab-A-George) pen needle, diabetic 32 gauge x #50 ea 03/06/22 06/02/22 Unknown History 06/14 (Ultracare Pen Needle) bupropion HCl 150 mg 24 hr tablet, 150 mg PO DAILY 05/16/22 06/19/22 06/18/22 History extended release insulin aspart U-100 100 unit/mL 14 unit subcut TIDAC 05/16/22 06/19/22 06/18/22 History (3 mL) subcutaneous pen (Novolog FlexPen U-100 Insulin aspart) insulin glargine U-300 conc 300 70 unit subcut DAILY 05/16/22 06/19/22 06/18/22 History unit/mL (3 mL) subcutaneous pen (Toujeo Max U-300 SoloStar) meclizine 25 mg tablet 25 mg PO Q6H PRN Dizziness 05/16/22 06/19/22 06/18/22 History trazodone 150 mg tablet 150 mg PO BEDTIME 05/16/22 06/19/22 06/18/22 History Physical Exam Vital Signs and Narrative: Vital Signs: Last Vital Signs Temp 99.7 F 06/19/22 09:05 Pulse 101 H 06/19/22 10:56 Resp 18 06/19/22 10:56 BP 115/67 06/19/22 10:56 Pulse Ox 95 06/19/22 10:56 O2 Del Method 06/19/22 10:56 O2 Flow Rate 3 06/19/22 10:56 Oxygen Flow Rate 4 06/19/22 06:00 BMI result Body Mass Index 31.7 Constitutional - Awake and weak appearing, fatigued, No apparent distress Eyes - PERRLA, EOMI Mouth- lips, mucosa dry Cardiovascular - S1S2, RRR, No edema Respiratory - Normal lung expansion, Normal respiratory effort, No respiratory distress, diminished bilaterally but CTA Gastrointestinal - NT / ND; +BS; No rebound or guarding Extremities - no calf tenderness bilaterally, no swelling Skin - Warm/Dry Neurological - Alert & oriented x3, CN II-XII in tact, 5/5 strength BUE and BLE Psychological - Appropriate affect Results Labs 06/19/22 06:30 06/19/22 06:30 Labs: Laboratory Results - last 24 hr 06/19/22 06/19/22 06/19/22 06:30 06:30 06:30 MCV 85.8 MCH 29.8 MCHC 34.8 RDW 12.7 Plt Count 242 D MPV 10.7 Immature Gran % (Auto) 0.7 H Neut % (Auto) 91.1 H Lymph % (Auto) 3.2 L [place] % (Auto) 4.7 Eos % (Auto) 0.0 Baso % (Auto) 0.3 Lymph # (Auto) 0.6 L [place] # (Auto) 0.9 Eos # (Auto) 0.0 Baso # (Auto) 0.1 Abs Immat Gran (auto) 0.13 H Absolute Neuts (auto) 17.0 H Absolute Nucleated RBC 0.000 Nucleated RBC % (auto) 0.0 Smear Tech's Comments VERIFIED PT INR APTT Anion Gap 24 H Estim Creat Clear Calc 16.4 Estimated GFR 10 Random Glucose 209 H Lactic Acid 2.6 H* Calcium 9.1 Total Bilirubin 0.8 AST 18 ALT 35 Alkaline Phosphatase 154 H Troponin I High Sens Total Protein 7.8 Albumin 4.4 Lipase 30 Urine Color Urine Appearance Urine pH Ur Specific [place] Urine Protein Urine Glucose (UA) Urine Ketones Urine Blood Urine Nitrite Ur Leukocyte Esterase Urine RBC Urine WBC Ur Squamous Epith Cells Calcium Oxalate Crystal Urine Bacteria Hyaline Casts COVID-19 (ANGI) COVID-19 Clin Com Influenza Type A (MENDEL) Influenza Type B (MENDEL) Influenza A & B Note 06/19/22 06/19/22 06/19/22 06:37 06:37 06:37 MCV MCH MCHC RDW Plt Count MPV Immature Gran % (Auto) Neut % (Auto) Lymph % (Auto) [place] % (Auto) Eos % (Auto) Baso % (Auto) Lymph # (Auto) [place] # (Auto) Eos # (Auto) Baso # (Auto) Abs Immat Gran (auto) Absolute Neuts (auto) Absolute Nucleated RBC Nucleated RBC % (auto) Smear Tech's Comments PT INR APTT Anion Gap Estim Creat Clear Calc Estimated GFR Random Glucose Lactic Acid Calcium Total Bilirubin AST ALT Alkaline Phosphatase Troponin I High Sens 6.3 Total Protein Albumin Lipase Urine Color Urine Appearance Urine pH Ur Specific [place] Urine Protein Urine Glucose (UA) Urine Ketones Urine Blood Urine Nitrite Ur Leukocyte Esterase Urine RBC Urine WBC Ur Squamous Epith Cells Calcium Oxalate Crystal Urine Bacteria Hyaline Casts COVID-19 (ANGI) Negative COVID-19 Personera Com See Note Influenza Type A (MENDEL) Negative Influenza Type B (MENDEL) Negative Influenza A & B Note See Note 06/19/22 06/19/22 06/19/22 07:25 08:20 08:59 MCV MCH MCHC RDW Plt Count MPV Immature Gran % (Auto) Neut % (Auto) Lymph % (Auto) [place] % (Auto) Eos % (Auto) Baso % (Auto) Lymph # (Auto) [place] # (Auto) Eos # (Auto) Baso # (Auto) Abs Immat Gran (auto) Absolute Neuts (auto) Absolute Nucleated RBC Nucleated RBC % (auto) Smear Tech's Comments PT 12.4 INR 1.1 APTT 31.7 Anion Gap Estim Creat Clear Calc Estimated GFR Random Glucose Lactic Acid 3.2 H* Calcium Total Bilirubin AST ALT Alkaline Phosphatase Troponin I High Sens Total Protein Albumin Lipase Urine Color Yellow Urine Appearance Cloudy Urine pH 5.0 Ur Specific [place] 1.015 Urine Protein 300 (3+) H Urine Glucose (UA) Negative Urine Ketones Negative Urine Blood Negative Urine Nitrite Negative Ur Leukocyte Esterase Trace H Urine RBC 0-2 Urine WBC 0-5 Ur Squamous Epith Cells 0-2 Calcium Oxalate Crystal Present Urine Bacteria None Seen Hyaline Casts 3-5 COVID-19 (ANGI) COVID-19 Clin Com Influenza Type A (MENDEL) Influenza Type B (MENDEL) Influenza A & B Note Imaging Radiologist's Impressions: Impressions Chest X-Ray 06/19/22 06:42 IMPRESSION: Mild hazy left basilar opacities are noted which could be infectious or inflammatory. Aspiration possible. Assessment and Plan (1) Metabolic acidosis: Status: Acute (2) Pneumonia: Qualifiers: Laterality: left Lung location: lower lobe of lung Pneumonia type: due to unspecified organism Qualified Code(s): J18.9 - Pneumonia, unspecified organism Status: Acute (3) Acute on chronic kidney failure: Status: Acute (4) Acute dehydration: Status: Acute (5) Diarrhea: Qualifiers: Diarrhea type: unspecified type Qualified Code(s): R19.7 - Diarrhea, unspecified Status: Acute Plan 56-year-old male with history of insulin-dependent type 2 diabetes, Yang, hypertension, depression, conversion disorder, chronic constipation, vertigo, CKD stage 3, HFpEF, and obesity?admitted for LEDA, metabolic acidosis, and pneumonia #Acute diarrhea- ?infectious -GI panel and C diff panel ordered, rectal tube ordered given incontinence -received sepsis bolus in ED, continue IVF -ondansetron p.r.n. for nausea -Keep NPO for now, advanced diet as tolerated # acute kidney injury- likely prerenal related to GI losses, not severe sepsis -creatinine 5.79, BUN, worsening to 5.98 following bolus fluids. Baseline creatinine around 2.7 -continue IVF -Appreciate nephro input #Metabolic acidosis- related to acute diarrhea- compensating - VBG pH 7.34, pCO2 28, bicarb 15 -continue IVF -appreciate Nephrology input # acute left lower lobe pneumonia with sepsis -CXR showing mild hazy left basilar opacities possibly infectious versus inflammatory, consider aspiration -Febrile to 100.8 with mild tachycardia 102. Leukocytosis reactive/inflammatory, not likely sepsis and has resolved with IVF -given recent hospitalization and question of aspiration, will cover with Zosyn (initiated 06/19) -add IV azithromycin to cover for legionnaires given concurrent copious diarrhea and clinical presentation (initiated 06/19) -legionnaire and strep pneumo antigen pending -no true hypoxia, can continue supplemental O2 to maintain oximetry above 92% -symptomatic management #Acute lactic acidosis- secondary to tissue hypoperfusion from hypovolemia, not severe sepsis -improving with IVF #HFpEF- without acute excerbation -BNP pending, CXR without effusions/congestion -Gentle fluid administration -continue PO diuretic # insulin-dependent type 2 diabetes without hyperglycemia -continue home basal insulin -Humalog on sliding scale -POC glucose -diabetic diet -hold p.o. meds # diabetic polyneuropathy -continue gabapentin # diabetic gastroparesis -continue home meds # hypertension-reasonably controlled -continue home meds # depression/anxiety/conversion disorder -continue home meds # CKD stage 3, with baseline GFR >30 -as above DVT prophylaxis- heparin Full code Patient wears inpatient stay of at least 2 midnights for management of LEDA and metabolic acidosis requiring aggressive IV fluid resuscitation, close monitoring of renal function, an expert consultation Time Spent With Patient Time: Total time managing care of this patient today ____ minutes. Quality Stroke Does the patient have a stroke diagnosis?: No VTE Prior VTE?: No VTE Risk Level:: Medical - moderate - high VTE Device Contraindication: Treatment Not Indicated VTE Drug Contraindication: N/A - Med Ordered
[2022-06-19 11:39] LABS: ~Lactic Acid-LAB USE ONLY 2.5 mmol/L (0.5-2.0)
[2022-06-19 12:47] LABS: MANUAL DIFF FLAG NO
[2022-06-19 12:48] LABS: Basophils Percent Auto 0.1 % (0-2); Hematocrit 33.5 % (42.0-52.0); Hemoglobin 11.5 g/dl (14.0-18.0); Imm Gran Abs Auto 0.02 X10*3/uL (0.00-0.03); Imm Gran Pct Auto 0.3 % (0.0-0.4); Lymphocytes Absolute Auto 0.3 X10*3/uL (1.2-4.9); Lymphocytes Percent Auto 4.4 % (20-40); Mean Corpuscular HGB Conc 34.3 g/dl (31.0-36.0); Mean Corpuscular Hemoglobin 29.7 pg (27.0-33.0); Mean Corpuscular Volume 86.6 fL (80.0-98.0); Mean Platelet Volume 10.3 fL (9.4-12.4); Monocytes Absolute Auto 0.5 X10*3/uL (0.1-1.2); Monocytes Percent Auto 6.2 % (2-11); Neutrophils Absolute Auto 6.6 x10*3/uL (2.0-8.3); Platelet Count 165 X10*3/uL (160-400); Red Blood Count 3.87 X10*6/uL (4.60-5.80); Red Cell Distribution Width 12.9 % (11.0-16.0); White Blood Count 7.5 X10*3/uL (4.8-10.8)
[2022-06-19 12:59] LABS: Reflex Lactate? 2 Y
[2022-06-19 13:00] LABS: Venous Blood Gas Refer to POC result
[2022-06-19 13:02] LABS: VBG Base Excess -8.4 mmol/L; VBG HCO3 15 mmol/L (22-26); VBG pCO2 28 mmHg; VBG pH 7.34 (7.32-7.43); VBG pO2 65 mmHg
[2022-06-19] MEDS: Heparin Sodium,Porcine 5,000 UNIT/ML VIAL 5000 UNIT SUBCUT (13:11)
[2022-06-19 13:18] LABS: B Type Natriuretic Peptide 72 pg/mL (<100)
[2022-06-19 13:33] LABS: Anion Gap 22 (12-20); Blood Urea Nitrogen 76 mg/dL (9-16); Calcium 8.3 mg/dL (8.4-10.2); Carbon Dioxide 15 mmol/L (22-29); Chloride 100 mmol/L (96-108); Creatinine Clr Calc Pharmacy 15.8; Estimated Glomerular Filt Rate 10; Glucose Random 136 mg/dL (60-115); Sodium 133 mmol/L (135-145)
[2022-06-19 14:03] LABS: ~Lactic Acid-LAB USE ONLY 2.6 mmol/L (0.5-2.0)
[2022-06-19] MEDS: Azithromycin 500 MG in 0.9 % Sodium Chloride 250 ML 125 MG IV (14:25)
[2022-06-19] MEDS: Simethicone 80 MG TAB.CHEW 160 MG PO ×2 (16:37→22:15)
[2022-06-19] MEDS: Piperacillin Sodium/Tazobactam 2.25 GM in 0.9 % Sodium Chloride 50 ML IV ×2 (16:37→22:17)
[2022-06-19] MEDS: 0.9 % Sodium Chloride Flush 3 ML SYRINGE IVFLUSH (16:38)
[2022-06-19] MEDS: Metoclopramide HCl 5 MG TABLET PO ×2 (16:38→22:17)
[2022-06-19 16:47] LABS: Glucose, Whole Blood 167 mg/dL (60-115)
--- NOTE | 2022-06-19 17:00 | PC.NURSE ---
No diarrhea noted since this AM, Caterina ALEXANDER notified as pt more alert and verbally states he can say when he has to go (will hold rectal tube at this time)
--- NOTE | 2022-06-19 19:43 | PC.NURSE ---
RN to RN report given. Pt will be transported to room 474 by transporter. Pt and sister at bedside aware of plan.
[2022-06-19 20:19] LABS: CDiff Gene PCR NEGATIVE (Negative)
[2022-06-19 21:19] LABS: Glucose, Whole Blood 143 mg/dL (60-115)
[2022-06-19] MEDS: Labetalol HCL 100 MG TABLET 300 MG PO (22:15)
[2022-06-19] MEDS: Gabapentin 300 MG CAPSULE PO (22:15)
[2022-06-19] MEDS: traZODone HCL 50 MG TABLET 150 MG PO (22:15)
[2022-06-19] MEDS: Famotidine 20 MG TABLET PO (22:15)
[2022-06-19] MEDS: clonazePAM 0.5 MG TABLET PO (22:16)
[2022-06-20] VITALS: BP 127/72; PULSE 91; RESP 18; TEMP 37.2; O2SAT 96
[2022-06-20] MEDS: Heparin Sodium,Porcine 5,000 UNIT/ML VIAL 5000 UNIT SUBCUT ×2 (02:31→12:05)
[2022-06-20] MEDS: Piperacillin Sodium/Tazobactam 2.25 GM in 0.9 % Sodium Chloride 50 ML IV ×4 (02:31→22:41)
[2022-06-20] MEDS: 0.9 % Sodium Chloride Flush 3 ML SYRINGE IVFLUSH ×2 (02:32→23:27)
[2022-06-20 07:10] LABS: Glucose, Whole Blood 150 mg/dL (60-115)
[2022-06-20 07:19] LABS: Anion Gap 19 (12-20); Blood Urea Nitrogen 85 mg/dL (9-16); Calcium 8.3 mg/dL (8.4-10.2); Carbon Dioxide 18 mmol/L (22-29); Chloride 102 mmol/L (96-108); Creatinine Clr Calc Pharmacy 17.1; Estimated Glomerular Filt Rate 11; Glucose Random 144 mg/dL (60-115); Potassium 4.1 mmol/L (3.3-5.1); Sodium 135 mmol/L (135-145)
[2022-06-20 07:25] VITALS: BP 160/73; PULSE 93; RESP 16; TEMP 36.6; O2SAT 90
--- NOTE | 2022-06-20 08:58 | MHC.CM.PN ---
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 PT CONFIRM COVD VAX X1/KIMBROUGH, PCP DHIRAJ ALVAREZ AND HCP IS DTR ANTONIETA AND COPY IS ON FILE. ANTIC D/C HOME W/RESUMP OF [facility] W/DTR FOR TRANSPORT ONCE MEDICALLY CLEARED.
[2022-06-20] MEDS: Labetalol HCL 100 MG TABLET 300 MG PO ×2 (08:59→22:44)
[2022-06-20] MEDS: Multivitamin TABLET 1 TAB PO (08:59)
[2022-06-20] MEDS: Famotidine 20 MG TABLET PO ×2 (08:59→22:44)
[2022-06-20] MEDS: Gabapentin 300 MG CAPSULE PO ×2 (08:59→22:45)
[2022-06-20] MEDS: buPROPion HCl XL 150 MG TAB.ER.24H PO (09:00)
[2022-06-20] MEDS: Cholecalciferol (Vitamin D3) 25 MCG TABLET 50 MCG PO (09:00)
[2022-06-20] MEDS: Venlafaxine HCl ER 150 MG CAP.ER.24H PO (09:00)
[2022-06-20] MEDS: Metoclopramide HCl 5 MG TABLET PO ×3 (09:00→22:44)
[2022-06-20] MEDS: Simethicone 80 MG TAB.CHEW 160 MG PO ×3 (09:02→22:44)
--- NOTE | 2022-06-20 10:41 | PM.CNNEP ---
History of Present Illness Reason for Consult Consult date: 06/20/22 Reason for consult: LEDA Chief Complaint Chief complaint: Diarrhea Pneumonia Dehydration History of Present Illness Narrative: 56-year-old male with history of insulin-dependent type 2 diabetes, Yang, hypertension, depression, conversion disorder, chronic constipation, vertigo, CKD stage 3, HFpEF, and obesity?presented to the ED for evaluation of vomiting, diarrhea, and near syncopal episode.? He developed recurrent copious watery diarrhea with associated urgency and abdominal pressure.? There has been some fecal incontinence as well.? He has had some chills but denies any fevers.? He denies nausea but did have a single episode of vomiting this morning.? He has also felt weak and this morning while having a bowel movement fell forward to the floor though he denies loss of consciousness or head injury.? He also reports a dry cough that started yesterday afternoon with associated shortness of breath and pleuritic chest pain. He reports he has also had decreased coordination of extremities and has fallen over last few weaks and he is reporting neck pain with neck/head often falling in forward flexion. No visual changes, sore throat, headaches, paresthesias, focal weakness. Denies any sick contacts or consumption of bad foods.? No recent travel. Review of Systems Review of Systems Yes all other systems are reviewed and are negative PMFSH Past Medical History Medical History Acute hyponatremia Anxiety Chronic hyperglycemia CKD (chronic kidney disease) CKD (chronic kidney disease) CKD (chronic kidney disease) stage 3, GFR 30-59 ml/min CKD (chronic kidney disease) stage 4, GFR 15-29 ml/min Depression Diabetes Diabetes mellitus with coincident hypertension Diabetes type 2, uncontrolled Diabetic nephropathy associated with type 2 diabetes mellitus Diabetic neuropathy associated with type 2 diabetes mellitus Dyslipidemia Essential hypertension GERD (gastroesophageal reflux disease) Hepatitis High cholesterol Hypercalcemia Hyperlipidemia Hypertension correction (current) use of insulin Metabolic acidosis Neuropathy New onset of congestive heart failure Obesity Obesity (BMI 30-39.9) Severe depression Sleep apnea Type 2 diabetes mellitus with obesity Vitamin D deficiency Family History Family History Father Diabetes Mother No problems noted. Surgical History Surgical History H/O colonoscopy History of esophagogastroduodenoscopy (EGD) Hx of arthroscopy of knee Hx of arthroscopy of right knee Social History Social History Household Members: Family Household Members Other:: SISTER Housing: Apartment Do you presently have visiting nurse or other home services: Yes Alcohol intake: never Patient Tobacco Use Status: Never used Tobacco e-Cigarette/Vaping Use: Never Used Second Hand Smoke Exposure: Yes (HISTORY OF SECOND HAND SMOKE EXPOSURE) Advance Directives Date on File: 05/05/20 service: No Current occupational status: disabled Current occupation: right handed Cognitive needs: No Hearing needs: No Vision needs: No Meds Allergies Allergy/AdvReac Type Severity Reaction Status Date / Time cephalexin [From KEFLEX] Allergy Mild ITCHY Verified 05/31/22 14:14 THROAT lisinopril [LISINOPRIL] Allergy Unknown SWELLING Verified 05/31/22 14:14 COUGH Active Medications: Current Medications Bupropion HCl (Bupropion Hcl Xl 150 Mg Tab.Er.24h) 150 mg PO DAILY [facility] Last Admin: 06/20/22 09:00 Dose: 150 mg Clonazepam (Clonazepam 0.5 Mg Tablet) 0.5 mg PO TID PRN PRN Reason: anxiety Last Admin: 06/19/22 22:16 Dose: 0.5 mg Famotidine (Famotidine 20 Mg Tablet) 20 mg PO BID [facility] Last Admin: 06/20/22 08:59 Dose: 20 mg Furosemide (Furosemide 20 Mg/2 Ml Vial) 20 mg IVPUSH ONCE ONE; Protocol Stop: 06/20/22 10:40 Gabapentin (Gabapentin 300 Mg Capsule) 300 mg PO BID [facility] Last Admin: 06/20/22 08:59 Dose: 300 mg Glucose (Glucose Gel 15 Gm Gel..Gram.) 15 gm PO Q15M PRN; Protocol PRN Reason: per Hypoglycemia Standing Ord. Guaifenesin (Guaifenesin 200 Mg/10 Ml 10 Ml Liquid) 10 ml PO Q4H PRN PRN Reason: Cough Heparin Sodium (Porcine) (Heparin Sodium,Porcine 5,000 Unit/Ml Vial) 5,000 unit SUBCUT Q12H [facility] Last Admin: 06/20/22 02:31 Dose: 5,000 unit Dextrose (D10) 250 mls @ 750 mls/hr IV Q15M PRN; Protocol PRN Reason: per Hypoglycemia Standing Ord. Azithromycin 500 mg/ Sodium (Chloride) 250 mls @ 125 mls/hr IV Q24H [facility] Last Infusion: 06/19/22 16:37 Dose: Infused Piperacillin Sod/Tazobactam (Sod 2.25 gm/ Sodium Chloride) 50 mls @ 100 mls/hr IV Q6H [facility] Last Infusion: 06/20/22 09:33 Dose: Infused Insulin Human Lispro (Insulin Lispro 100 Unit/Ml 3 Ml Vial) 0 unit SUBCUT QIDACHS [facility]; Protocol Last Admin: 06/20/22 08:29 Dose: Not Given Labetalol HCl (Labetalol Hcl 100 Mg Tablet) 300 mg PO BID [facility] Last Admin: 06/20/22 08:59 Dose: 300 mg Meclizine HCl (Meclizine Hcl 25 Mg Tablet) 25 mg PO Q6H PRN PRN Reason: Dizziness Metoclopramide HCl (Metoclopramide Hcl 5 Mg Tablet) 5 mg PO QID [facility] Last Admin: 06/20/22 09:00 Dose: 5 mg Multivitamins/Vitamin C (Multivitamin Tablet) 1 tab PO DAILY [facility] Last Admin: 06/20/22 08:59 Dose: 1 tab Simethicone (Simethicone 80 Mg Tab.Chew) 160 mg PO TID [facility] Last Admin: 06/20/22 09:02 Dose: 160 mg Sodium Chloride (0.9 % Sodium Chloride Flush 3 Ml Syringe) 3 ml IVFLUSH QSHIFT [facility] Last Admin: 06/20/22 07:21 Dose: Not Given Trazodone HCl (Trazodone Hcl 50 Mg Tablet) 150 mg PO BEDTIME [facility] Last Admin: 06/19/22 22:15 Dose: 150 mg Venlafaxine HCl (Venlafaxine Hcl Er 150 Mg Cap.Er.24h) 150 mg PO DAILY [facility] Last Admin: 06/20/22 09:00 Dose: 150 mg Vitamin D (Cholecalciferol (Vitamin D3) 25 Mcg Tablet) 50 mcg PO DAILY [facility] Last Admin: 06/20/22 09:00 Dose: 50 mcg Home Medications Medication Instructions Recorded Confirmed Last Taken Type venlafaxine 150 mg 150 mg PO DAILY 10/30/21 06/19/22 06/18/22 History capsule,extended release 24 hr multivitamin with folic acid 400 1 tab PO DAILY 03/06/22 06/19/22 06/18/22 History mcg tablet (Tab-A-George) pen needle, diabetic 32 gauge x #50 ea 03/06/22 06/02/22 Unknown History 06/14 (Ultracare Pen Needle) bupropion HCl 150 mg 24 hr tablet, 150 mg PO DAILY 05/16/22 06/19/22 06/18/22 History extended release insulin aspart U-100 100 unit/mL 14 unit subcut TIDAC 05/16/22 06/19/22 06/18/22 History (3 mL) subcutaneous pen (Novolog FlexPen U-100 Insulin aspart) insulin glargine U-300 conc 300 70 unit subcut DAILY 05/16/22 06/19/22 06/18/22 History unit/mL (3 mL) subcutaneous pen (Toujeo Max U-300 SoloStar) meclizine 25 mg tablet 25 mg PO Q6H PRN Dizziness 05/16/22 06/19/22 06/18/22 History trazodone 150 mg tablet 150 mg PO BEDTIME 05/16/22 06/19/22 06/18/22 History Physical Exam Vital Signs: Last Vital Signs Temp 97.8 F 06/20/22 07:25 Pulse 93 06/20/22 07:25 Resp 16 06/20/22 07:25 BP 160/73 H 06/20/22 07:25 Pulse Ox 90 L 06/20/22 07:25 O2 Del Method 06/20/22 07:25 O2 Flow Rate 3 06/20/22 07:25 Oxygen Flow Rate 4 06/19/22 06:00 BMI result Body Mass Index 32.1 Constitutional - Awake and weak appearing, fatigued, No apparent distress Eyes - PERRLA, EOMI Mouth- lips, mucosa dry Cardiovascular - S1S2, RRR, No edema Respiratory - Normal lung expansion, Normal respiratory effort, No respiratory distress, diminished bilaterally but CTA Gastrointestinal - NT / ND; +BS; No rebound or guarding Extremities - no calf tenderness bilaterally, no swelling Skin - Warm/Dry Neurological - Alert & oriented x3, CN II-XII in tact, 5/5 strength BUE and BLE Psychological - Appropriate affect Results Lab Results 06/19/22 12:42 06/20/22 06:35 Lab results: Chemistry 06/19/22 06/19/22 06/20/22 06:30 12:42 06:35 Sodium 131 L 133 L 135 Potassium 4.6 4.0 4.1 Carbon Dioxide 18 L 15 L 18 L BUN 74 H 76 H 85 H Creatinine 5.79 H* 5.98 H* 5.58 H* Calcium 9.1 8.3 L D 8.3 L Hematology 06/19/22 06/19/22 06:30 12:42 WBC 18.7 H 7.5 Hgb 12.2 L D 11.5 L Plt Count 242 D 165 D Urinalysis 06/19/22 08:59 Urine Color Yellow Urine Appearance Cloudy Urine pH 5.0 Ur Specific [place] 1.015 Urine Protein 300 (3+) H Urine Glucose (UA) Negative Urine Ketones Negative Urine Blood Negative Urine Nitrite Negative Ur Leukocyte Esterase Trace H Urine RBC 0-2 Urine WBC 0-5 Ur Squamous Epith Cells 0-2 Hyaline Casts 3-5 Chest x-ray findings noted. Assessment and Plan (1) Acute on chronic kidney failure: Status: Acute (2) Diarrhea: Qualifiers: Diarrhea type: unspecified type Qualified Code(s): R19.7 - Diarrhea, unspecified Status: Acute (3) (HFpEF) heart failure with preserved ejection fraction: Status: Acute (4) Metabolic acidosis: Status: Acute Plan 56-year-old man who is well known to me with a history of chronic kidney disease in the setting of longstanding diabetes mellitus and hypertension. Currently admitted with superimposed acute kidney injury in the setting of diarrhea. Acute kidney injury is most likely due to hypoperfusion from volume depletion secondary to dehydration from diarrhea. Other possibilities including obstructive uropathy ,glomerulonephritis or interstitial nephritis seems unlikely at this point. Mild hyponatremia due to hypovolemia at the time of admission. Serum sodium has improved. Significant metabolic acidosis due to acute kidney injury as well as bicarb losses in the stools Mild anemia without thrombocytopenia Recommendations Check urine for sodium, creatinine Hold Lasix and all antihypertensives for now. Cautiously hydrated with Ringer's lactate at 70 cc/hour. Concur with current workup for the diarrhea. No absolute indication for dialysis. Renal function should improve with volume repletion. Further workup will be based on the clinical outcome over the next 1-2 days. I will follow him closely with the team. Thank you Time Spent With Patient Time: Total time managing care of this patient today ____ minutes. Procedures Date of Service Date of Service: 06/20/22
--- NOTE | 2022-06-20 11:22 | P.PNIM_ITS ---
Subjective Subjective Date of Service: 06/20/22 Physical Exam Vital Signs: Vital Signs: Last Vital Signs Temp 97.8 F 06/20/22 07:25 Pulse 93 06/20/22 07:25 Resp 16 06/20/22 07:25 BP 160/73 H 06/20/22 07:25 Pulse Ox 90 L 06/20/22 07:25 O2 Del Method 06/20/22 07:25 O2 Flow Rate 3 06/20/22 07:25 Oxygen Flow Rate 4 06/19/22 06:00 BMI result Body Mass Index 32.1 Const: Other: Constitutional : Awake, interactive, not in distress Neck : Normal inspection, Supple Cardiovascular : RRR, no JVP, trace lower extremity edema Respiratory : good bilateral air entry, basal bilateral crackles more on left, wheezes or rhonchi Gastrointestinal: soft, lax, Normal bowel sounds, Non tender Skin : Warm, Dry Neurological : Alert & oriented x3, No focal deficit Objective Data Active Medications Bupropion HCl (Bupropion Hcl Xl 150 Mg Tab.Er.24h) 150 mg PO DAILY [facility] Last Admin: 06/20/22 09:00 Dose: 150 mg Documented By: YADI Clonazepam (Clonazepam 0.5 Mg Tablet) 0.5 mg PO TID PRN PRN Reason: anxiety Last Admin: 06/19/22 22:16 Dose: 0.5 mg Documented By: SAHIL Famotidine (Famotidine 20 Mg Tablet) 20 mg PO BID [facility] Last Admin: 06/20/22 08:59 Dose: 20 mg Documented By: YADI Gabapentin (Gabapentin 300 Mg Capsule) 300 mg PO BID [facility] Last Admin: 06/20/22 08:59 Dose: 300 mg Documented By: YADI Glucose (Glucose Gel 15 Gm Gel..Gram.) 15 gm PO Q15M PRN; Protocol PRN Reason: per Hypoglycemia Standing Ord. Guaifenesin (Guaifenesin 200 Mg/10 Ml 10 Ml Liquid) 10 ml PO Q4H PRN PRN Reason: Cough Heparin Sodium (Porcine) (Heparin Sodium,Porcine 5,000 Unit/Ml Vial) 5,000 unit SUBCUT Q12H [facility] Last Admin: 06/20/22 02:31 Dose: 5,000 unit Documented By: SAHIL Dextrose (D10) 250 mls @ 750 mls/hr IV Q15M PRN; Protocol PRN Reason: per Hypoglycemia Standing Ord. Azithromycin 500 mg/ Sodium (Chloride) 250 mls @ 125 mls/hr IV Q24H [facility] Last Infusion: 06/19/22 16:37 Dose: 0 mls/hr Documented By: JHONNY Piperacillin Sod/Tazobactam (Sod 2.25 gm/ Sodium Chloride) 50 mls @ 100 mls/hr IV Q6H [facility] Last Infusion: 06/20/22 09:33 Dose: 0 mls/hr Documented By: UCHE Insulin Human Lispro (Insulin Lispro 100 Unit/Ml 3 Ml Vial) 0 unit SUBCUT [facility]; Protocol Last Admin: 06/20/22 08:29 Dose: Not Given Documented By: UCHE Non-Admin Reason: poc oor Labetalol HCl (Labetalol Hcl 100 Mg Tablet) 300 mg PO BID [facility] Last Admin: 06/20/22 08:59 Dose: 300 mg Documented By: YADI Meclizine HCl (Meclizine Hcl 25 Mg Tablet) 25 mg PO Q6H PRN PRN Reason: Dizziness Metoclopramide HCl (Metoclopramide Hcl 5 Mg Tablet) 5 mg PO QID [facility] Last Admin: 06/20/22 09:00 Dose: 5 mg Documented By: YADI Multivitamins/Vitamin C (Multivitamin Tablet) 1 tab PO DAILY [facility] Last Admin: 06/20/22 08:59 Dose: 1 tab Documented By: YADI Simethicone (Simethicone 80 Mg Tab.Chew) 160 mg PO TID [facility] Last Admin: 06/20/22 09:02 Dose: 160 mg Documented By: YADI Sodium Chloride (0.9 % Sodium Chloride Flush 3 Ml Syringe) 3 ml IVFLUSH QSHIFT [facility] Last Admin: 06/20/22 07:21 Dose: Not Given Documented By: UCHE Non-Admin Reason: See Note Trazodone HCl (Trazodone Hcl 50 Mg Tablet) 150 mg PO BEDTIME [facility] Last Admin: 06/19/22 22:15 Dose: 150 mg Documented By: SAHIL Venlafaxine HCl (Venlafaxine Hcl Er 150 Mg Cap.Er.24h) 150 mg PO DAILY [facility] Last Admin: 06/20/22 09:00 Dose: 150 mg Documented By: YADI Vitamin D (Cholecalciferol (Vitamin D3) 25 Mcg Tablet) 50 mcg PO DAILY [facility] Last Admin: 06/20/22 09:00 Dose: 50 mcg Documented By: YADI Labs 06/19/22 12:42 06/20/22 06:35 Labs: Laboratory Results - last 24 hr 06/19/22 06/19/22 06/19/22 10:53 12:42 12:42 MCV 86.6 MCH 29.7 MCHC 34.3 RDW 12.9 Plt Count 165 D MPV 10.3 Immature Gran % (Auto) 0.3 Neut % (Auto) 89.0 H Lymph % (Auto) 4.4 L [place] % (Auto) 6.2 Eos % (Auto) 0.0 Baso % (Auto) 0.1 Lymph # (Auto) 0.3 L [place] # (Auto) 0.5 Eos # (Auto) 0.0 Baso # (Auto) 0.0 Abs Immat Gran (auto) 0.02 Absolute Neuts (auto) 6.6 Absolute Nucleated RBC 0.000 Nucleated RBC % (auto) 0.0 VBG pH VBG pCO2 VBG pO2 VBG HCO3 VBG O2 Saturation VBG Base Excess Anion Gap 22 H Estim Creat Clear Calc 15.8 Estimated GFR 10 POC Glucose Random Glucose 136 H Lactic Acid F/U @ 2Hr 2.5 H* Lactic Acid F/U @ 4Hr Calcium 8.3 L D B-Natriuretic Peptide C. difficile Tox B Gene 06/19/22 06/19/22 06/19/22 12:42 12:45 13:31 MCV MCH MCHC RDW Plt Count MPV Immature Gran % (Auto) Neut % (Auto) Lymph % (Auto) [place] % (Auto) Eos % (Auto) Baso % (Auto) Lymph # (Auto) [place] # (Auto) Eos # (Auto) Baso # (Auto) Abs Immat Gran (auto) Absolute Neuts (auto) Absolute Nucleated RBC Nucleated RBC % (auto) VBG pH 7.34 VBG pCO2 28 VBG pO2 65 VBG HCO3 15 L VBG O2 Saturation 90.0 VBG Base Excess -8.4 Anion Gap Estim Creat Clear Calc Estimated GFR POC Glucose Random Glucose Lactic Acid F/U @ 2Hr Lactic Acid F/U @ 4Hr 2.6 H* Calcium B-Natriuretic Peptide 72 C. difficile Tox B Gene 06/19/22 06/19/22 06/19/22 16:41 18:52 21:16 MCV MCH MCHC RDW Plt Count MPV Immature Gran % (Auto) Neut % (Auto) Lymph % (Auto) [place] % (Auto) Eos % (Auto) Baso % (Auto) Lymph # (Auto) [place] # (Auto) Eos # (Auto) Baso # (Auto) Abs Immat Gran (auto) Absolute Neuts (auto) Absolute Nucleated RBC Nucleated RBC % (auto) VBG pH VBG pCO2 VBG pO2 VBG HCO3 VBG O2 Saturation VBG Base Excess Anion Gap Estim Creat Clear Calc Estimated GFR POC Glucose 167 H 143 H Random Glucose Lactic Acid F/U @ 2Hr Lactic Acid F/U @ 4Hr Calcium B-Natriuretic Peptide C. difficile Tox B Gene NEGATIVE 06/20/22 06/20/22 06:35 07:04 MCV MCH MCHC RDW Plt Count MPV Immature Gran % (Auto) Neut % (Auto) Lymph % (Auto) [place] % (Auto) Eos % (Auto) Baso % (Auto) Lymph # (Auto) [place] # (Auto) Eos # (Auto) Baso # (Auto) Abs Immat Gran (auto) Absolute Neuts (auto) Absolute Nucleated RBC Nucleated RBC % (auto) VBG pH VBG pCO2 VBG pO2 VBG HCO3 VBG O2 Saturation VBG Base Excess Anion Gap 19 Estim Creat Clear Calc 17.1 Estimated GFR 11 POC Glucose 150 H Random Glucose 144 H Lactic Acid F/U @ 2Hr Lactic Acid F/U @ 4Hr Calcium 8.3 L B-Natriuretic Peptide C. difficile Tox B Gene Microbiology Microbiology Results: Microbiology 06/19/22 06:30 Blood Culture - Preliminary Blood - Venous No growth after 24 hours. 06/19/22 06:30 Blood Culture - Preliminary Blood - Venous No growth after 24 hours. Assessment and Plan (1) Metabolic acidosis: Status: Acute (2) Acute on chronic kidney failure: Status: Acute (3) Pneumonia: Status: Acute (4) Diarrhea: Status: Acute (5) (HFpEF) heart failure with preserved ejection fraction: Status: Acute Plan 56-year-old male with history of insulin-dependent type 2 diabetes, Yang, hypertension, depression, conversion disorder, chronic constipation, vertigo, CKD stage 3, HFpEF, and obesity?admitted for LEDA, metabolic acidosis, and pneumonia #Acute diarrhea pending GI panel negative C diff panel rectal tube ordered given incontinence, to dc once diarrhea improves dc IVF ondansetron p.r.n. for nausea advance diet as tolerated # Met Acidosis 2/2 acute kidney injury Bicarb improving likely prerenal related to GI loss creatinine worsening to 5.6 Baseline creatinine around 2.7 dc IVF nephro input # acute left lower lobe pneumonia with sepsis left basilar opacities possibly infectious versus inflammatory cover with Zosyn (initiated 06/19) add IV azithromycin to cover for legionnaires (initiated 06/19) legionnaire and strep pneumo antigen pending continue supplemental O2 to maintain oximetry above 92% #Acute lactic acidosis secondary to tissue hypoperfusion from hypovolemia, not severe sepsis improved with IVF #HFpEF worsening SOB repeat CXR recheck BNP hold IVF IV LAsix # insulin-dependent type 2 diabetes without hyperglycemia continue home basal insulin Humalog on sliding scale POC glucose diabetic diet hold p.o. meds # diabetic polyneuropathy continue gabapentin # diabetic gastroparesis continue home meds # hypertension-reasonably controlled continue home meds # depression/anxiety/conversion disorder continue home meds # CKD stage 3, with baseline GFR >30 as above DVT prophylaxis heparin Patient wears inpatient stay of at least overnight for management of LEDA and metabolic acidosis requiring aggressive IV fluid resuscitation, close monitoring of renal function, an expert consultation Time Spent With Patient Time: Total time managing care of this patient today ____ minutes. Quality Stroke Does the patient have a stroke diagnosis?: No VTE Prior VTE?: No VTE Risk Level:: Medical - moderate - high VTE Device Contraindication: Treatment Not Indicated VTE Drug Contraindication: N/A - Med Ordered
[2022-06-20 11:39] LABS: Glucose, Whole Blood 182 mg/dL (60-115)
[2022-06-20] MEDS: Insulin Lispro 100 UNIT/ML 3 ML VIAL SUBCUT ×3 (12:05→22:41)
[2022-06-20] MEDS: Furosemide 20 MG/2 ML VIAL IVPUSH (12:05)
[2022-06-20] MEDS: Azithromycin 500 MG in 0.9 % Sodium Chloride 250 ML 125 MG IV (13:05)
--- NOTE | 2022-06-20 13:31 | MHC.IC ---
Positive test for Norovirus. Wash hands with soap and water after all contact and clean surfaces with bleach.
[2022-06-20 13:34] LABS: Adenovirus F 40/41 Not Detected (Not Detect.); Astrovirus Not Detected (Not Detect.); Campylobacter Not Detected (Not Detect.); Cryptosporidium Not Detected (Not Detect.); Cyclospora cayetanensis Not Detected (Not Detect.); E. coli EAEC Not Detected (Not Detect.); E. coli EPEC Not Detected (Not Detect.); E. coli ETEC Not Detected (Not Detect.); E. coli STEC Not Detected (Not Detect.); Entamoeba histolytica Not Detected (Not Detect.); Giardia lamblia Not Detected (Not Detect.); Plesiomonas shigelloides Not Detected (Not Detect.); Rotavirus A Not Detected (Not Detect.); Salmonella Not Detected (Not Detect.); Sapovirus Not Detected (Not Detect.); Shigella sp./EIEC Not Detected (Not Detect.); Vibrio Not Detected (Not Detect.); Vibrio Cholerae Not Detected (Not Detect.); Yersinia enterocolitica Not Detected (Not Detect.)
[2022-06-20 13:36] LABS: Norovirus GI/GII Detected (Not Detect.)
[2022-06-20 14:03] VITALS: BP 140/70; PULSE 92; RESP 17; TEMP 36.4; O2SAT 96
[2022-06-20 15:00] VITALS: BP 154/58; PULSE 92; RESP 20; TEMP 36.8; O2SAT 96
[2022-06-20 16:04] LABS: Glucose, Whole Blood 195 mg/dL (60-115)
[2022-06-20 16:14] VITALS: PULSE 82; O2SAT 83
[2022-06-20 19:33] LABS: Glucose, Whole Blood 160 mg/dL (60-115)
[2022-06-20 22:41] VITALS: BP 149/71; PULSE 88; RESP 20; TEMP 36.7; O2SAT 90
[2022-06-20] MEDS: Furosemide 40 MG/4 ML VIAL IVPUSH (22:44)
[2022-06-20] MEDS: traZODone HCL 50 MG TABLET 150 MG PO (22:45)
[2022-06-20] MEDS: clonazePAM 0.5 MG TABLET PO (22:45)
[2022-06-21] VITALS: BP 137/65; PULSE 72; RESP 22; TEMP 36.7; O2SAT 93
[2022-06-21] MEDS: Heparin Sodium,Porcine 5,000 UNIT/ML VIAL 5000 UNIT SUBCUT ×2 (00:42→12:48)
[2022-06-21] MEDS: Piperacillin Sodium/Tazobactam 2.25 GM in 0.9 % Sodium Chloride 50 ML IV ×4 (03:05→21:40)
[2022-06-21 03:29] VITALS: BP 137/67; PULSE 73; RESP 20; TEMP 36.7; O2SAT 94
[2022-06-21 07:21] LABS: Glucose, Whole Blood 152 mg/dL (60-115)
[2022-06-21 07:42] LABS: Anion Gap 19 (12-20); Blood Urea Nitrogen 79 mg/dL (9-16); Calcium 8.7 mg/dL (8.4-10.2); Carbon Dioxide 19 mmol/L (22-29); Chloride 103 mmol/L (96-108); Creatinine Clr Calc Pharmacy 21.2; Estimated Glomerular Filt Rate 14; Glucose Random 151 mg/dL (60-115); Potassium 3.8 mmol/L (3.3-5.1); Sodium 137 mmol/L (135-145)
[2022-06-21] MEDS: buPROPion HCl XL 150 MG TAB.ER.24H PO (09:21)
[2022-06-21] MEDS: Simethicone 80 MG TAB.CHEW 160 MG PO ×3 (09:21→21:37)
[2022-06-21] MEDS: Gabapentin 300 MG CAPSULE PO ×2 (09:22→21:39)
[2022-06-21] MEDS: Labetalol HCL 100 MG TABLET 300 MG PO ×2 (09:22→21:38)
[2022-06-21] MEDS: 0.9 % Sodium Chloride Flush 3 ML SYRINGE IVFLUSH ×2 (09:22→16:52)
[2022-06-21] MEDS: Cholecalciferol (Vitamin D3) 25 MCG TABLET 50 MCG PO (09:22)
[2022-06-21] MEDS: Famotidine 20 MG TABLET PO ×2 (09:22→21:39)
[2022-06-21] MEDS: Insulin Lispro 100 UNIT/ML 3 ML VIAL SUBCUT ×4 (09:22→21:40)
[2022-06-21] MEDS: Multivitamin TABLET 1 TAB PO (09:22)
[2022-06-21] MEDS: Venlafaxine HCl ER 150 MG CAP.ER.24H PO (09:22)
[2022-06-21] MEDS: Metoclopramide HCl 5 MG TABLET PO ×4 (09:22→21:39)
[2022-06-21] MEDS: Furosemide 40 MG/4 ML VIAL IVPUSH (10:30)
[2022-06-21 12:01] LABS: Glucose, Whole Blood 268 mg/dL (60-115)
[2022-06-21 13:00] VITALS: BP 184/96; PULSE 86; O2SAT 96
--- NOTE | 2022-06-21 13:52 | P.CDIM_ITS ---
PROVIDER RESPONSE TEXT: To clarify, the appropriate diagnosis supported by the clinical indicators: Acute respiratory failure: Hypoxic QUERY TEXT: PHYSICIAN'S DOCUMENTATION REQUEST Date of Query: 06/21/2022 09:10 AM EDT Patient Name: Larry Dias V Admit Date: 06/19/2022 Dear Erica Peres, A review of the medical record indicates additional documentation may be needed. Please review below and update the documentation accordingly. Is there a diagnosis that correlates with the findings below: Clinical Indicators: Vitals & labs: -Carbon dioxide level on 06/19 - 15 -VBG on 06/19: pH - 7.34 pCO2 - 28 pO2 - 65 HCO3 - 15 -Patient with tachypnea (RR 26) -Patient with tachycardia (HR 102) -Patient with frequent decreased O2 sat (O2 83%) Other indicators/risk factors: -Patient requiring supplemental O2 via NC and Oxymask -Patient with acute metabolic acidosis -Patient with PNA and sepsis Please clarify which of the following accurately represents the patient's respiratory status: Acute respiratory failure Please specify if Hypoxic, Hypercapnic, or Hypoxic and hypercapnic Acute on chronic respiratory failure Please specify if Hypoxic, Hypercapnic, or Hypoxic and hypercapnic Other (Please specify) Other (explain) Clinically unable to determine (explain) Thank you, Shanique Flynn, MS, RN, CCRN Use of terms such as suspected, likely, concern for, or probable (associated with a specific diagnosi s that is being evaluated, monitored, or treated as if it exists) are acceptable and can be coded in the inpatient se tting, when documented at the time of discharge. Please use your independent medical judgment in providing your response. THIS QUERY IS PART OF THE PERMANENT MEDICAL RECORD
--- NOTE | 2022-06-21 13:56 | PM.PNNEP ---
Subjective Subjective Date of Service: 06/26/22 Physical Exam Vital Signs: Vital Signs: Last Vital Signs Temp 98.1 F 06/21/22 03:29 Pulse 86 06/21/22 13:00 Resp 20 06/21/22 03:29 BP 184/96 H 06/21/22 13:00 Pulse Ox 96 06/21/22 13:00 O2 Del Method Nasal Cannula, Ox ymask 06/21/22 03:29 O2 Flow Rate 4 06/21/22 03:29 Oxygen Flow Rate 4 06/19/22 06:00 BMI result Body Mass Index 32.1 Const: Other: Constitutional : Awake, interactive, not in distress Neck : Normal inspection, Supple Cardiovascular : RRR, no JVP, trace lower extremity edema Respiratory : good bilateral air entry, basal bilateral crackles more on left, wheezes or rhonchi Gastrointestinal: soft, lax, Normal bowel sounds, Non tender Skin : Warm, Dry Neurological : Alert & oriented x3, No focal deficit Psych: Attitude: cooperative Objective Data Labs 06/19/22 12:42 06/21/22 06:37 Labs: Laboratory Results - last 24 hr 06/20/22 06/20/22 06/21/22 16:01 19:29 06:37 Sodium 137 Potassium 3.8 Chloride 103 Carbon Dioxide 19 L Anion Gap 19 BUN 79 H Creatinine 4.50 H* Estim Creat Clear Calc 21.2 Estimated GFR 14 POC Glucose 195 H 160 H Random Glucose 151 H Calcium 8.7 06/21/22 06/21/22 07:17 11:54 Sodium Potassium Chloride Carbon Dioxide Anion Gap BUN Creatinine Estim Creat Clear Calc Estimated GFR POC Glucose 152 H 268 H Random Glucose Calcium Microbiology Microbiology Results: Microbiology 06/19/22 06:30 Blood - Venous Blood Culture - Preliminary No growth after 48 hours. 06/19/22 06:30 Blood - Venous Blood Culture - Preliminary No growth after 48 hours. Procedures Date of Service Date of Service: 06/21/22 Assessment & Plan Assessment and plan (1) Acute on chronic kidney failure: Status: Acute (2) Diarrhea: Status: Acute (3) (HFpEF) heart failure with preserved ejection fraction: Status: Acute (4) Metabolic acidosis: Status: Acute Plan 56-year-old man who is well known to me with a history of chronic kidney disease in the setting of longstanding diabetes mellitus and hypertension. Currently admitted with superimposed acute kidney injury in the setting of diarrhea. Acute kidney injury is most likely due to hypoperfusion from volume depletion secondary to dehydration from diarrhea. Other possibilities including obstructive uropathy ,glomerulonephritis or interstitial nephritis seems unlikely at this point. Mild hyponatremia due to hypovolemia at the time of admission. Serum sodium has improved. Significant metabolic acidosis due to acute kidney injury as well as bicarb losses in the stools Mild anemia without thrombocytopenia Recommendations Hold Lasix and all antihypertensives for now. Cautiously hydrated with Ringer's lactate at 70 cc/hour. Concur with current workup for the diarrhea. No absolute indication for dialysis. Renal function is improving with volume repletion. We will follow him closely with the team. Time Spent With Patient Time: Total time managing care of this patient today ____ minutes. Progress Note: Quality Stroke Does the patient have a stroke diagnosis?: No
--- NOTE | 2022-06-21 14:03 | P.PNIM_ITS ---
Subjective Subjective Date of Service: 06/21/22 Interval History: Seen and evaluated this morning report diarrhea improving still having difficulties breathing and feels no energy or appetitie weaning O2 down Stool positive for Noro virus Review of Systems Review of Systems: Yes all other systems are reviewed and are negative Physical Exam Vital Signs: Vital Signs: Last Vital Signs Temp 98.1 F 06/21/22 03:29 Pulse 86 06/21/22 13:00 Resp 20 06/21/22 03:29 BP 184/96 H 06/21/22 13:00 Pulse Ox 96 06/21/22 13:00 O2 Del Method Nasal Cannula, Ox ymask 06/21/22 03:29 O2 Flow Rate 4 06/21/22 03:29 Oxygen Flow Rate 4 06/19/22 06:00 BMI result Body Mass Index 32.1 Const: Other: Constitutional : Awake, interactive, not in distress Neck : Normal inspection, Supple Cardiovascular : RRR, no JVP, trace lower extremity edema Respiratory : good bilateral air entry, basal bilateral crackles more on left, no wheezes or rhonchi Gastrointestinal: soft, lax, Normal bowel sounds, Non tender Skin : Warm, Dry Neurological : Alert & oriented x3, No focal deficit Objective Data Active Medications Bupropion HCl (Bupropion Hcl Xl 150 Mg Tab.Er.24h) 150 mg PO DAILY [facility] Last Admin: 06/21/22 09:21 Dose: 150 mg Documented By: COLTON Clonazepam (Clonazepam 0.5 Mg Tablet) 0.5 mg PO TID PRN PRN Reason: anxiety Last Admin: 06/20/22 22:45 Dose: 0.5 mg Documented By: SAHIL Famotidine (Famotidine 20 Mg Tablet) 20 mg PO BID [facility] Last Admin: 06/21/22 09:22 Dose: 20 mg Documented By: COLTON Gabapentin (Gabapentin 300 Mg Capsule) 300 mg PO BID [facility] Last Admin: 06/21/22 09:22 Dose: 300 mg Documented By: COLTON Glucose (Glucose Gel 15 Gm Gel..Gram.) 15 gm PO Q15M PRN; Protocol PRN Reason: per Hypoglycemia Standing Ord. Guaifenesin (Guaifenesin 200 Mg/10 Ml 10 Ml Liquid) 10 ml PO Q4H PRN PRN Reason: Cough Heparin Sodium (Porcine) (Heparin Sodium,Porcine 5,000 Unit/Ml Vial) 5,000 unit SUBCUT Q12H [facility] Last Admin: 06/21/22 12:48 Dose: 5,000 unit Documented By: COLTON Dextrose (D10) 250 mls @ 750 mls/hr IV Q15M PRN; Protocol PRN Reason: per Hypoglycemia Standing Ord. Azithromycin 500 mg/ Sodium (Chloride) 250 mls @ 125 mls/hr IV Q24H [facility] Last Infusion: 06/20/22 15:07 Dose: 0 mls/hr Documented By: MANSI-SOFFA Piperacillin Sod/Tazobactam (Sod 2.25 gm/ Sodium Chloride) 50 mls @ 100 mls/hr IV Q6H [facility] Last Infusion: 06/21/22 10:14 Dose: 0 mls/hr Documented By: COLTON Insulin Human Lispro (Insulin Lispro 100 Unit/Ml 3 Ml Vial) 0 unit SUBCUT QIDACHS [facility]; Protocol Last Admin: 06/21/22 12:49 Dose: 6 unit Documented By: COLTON Labetalol HCl (Labetalol Hcl 100 Mg Tablet) 300 mg PO BID [facility] Last Admin: 06/21/22 09:22 Dose: 300 mg Documented By: COLTON Meclizine HCl (Meclizine Hcl 25 Mg Tablet) 25 mg PO Q6H PRN PRN Reason: Dizziness Metoclopramide HCl (Metoclopramide Hcl 5 Mg Tablet) 5 mg PO QID [facility] Last Admin: 06/21/22 12:48 Dose: 5 mg Documented By: COLTON Multivitamins/Vitamin C (Multivitamin Tablet) 1 tab PO DAILY [facility] Last Admin: 06/21/22 09:22 Dose: 1 tab Documented By: COLTON Simethicone (Simethicone 80 Mg Tab.Chew) 160 mg PO TID [facility] Last Admin: 06/21/22 09:21 Dose: 160 mg Documented By: COLTON Sodium Chloride (0.9 % Sodium Chloride Flush 3 Ml Syringe) 3 ml IVFLUSH QSHIFT [facility] Last Admin: 06/21/22 09:22 Dose: 3 ml Documented By: COLTON Trazodone HCl (Trazodone Hcl 50 Mg Tablet) 150 mg PO BEDTIME [facility] Last Admin: 06/20/22 22:45 Dose: 150 mg Documented By: SAHIL Venlafaxine HCl (Venlafaxine Hcl Er 150 Mg Cap.Er.24h) 150 mg PO DAILY [facility] Last Admin: 06/21/22 09:22 Dose: 150 mg Documented By: COLTON Vitamin D (Cholecalciferol (Vitamin D3) 25 Mcg Tablet) 50 mcg PO DAILY [facility] Last Admin: 06/21/22 09:22 Dose: 50 mcg Documented By: COLTON Labs 06/19/22 12:42 06/21/22 06:37 Labs: Laboratory Results - last 24 hr 06/20/22 06/20/22 06/21/22 16:01 19:29 06:37 Anion Gap 19 Estim Creat Clear Calc 21.2 Estimated GFR 14 POC Glucose 195 H 160 H Random Glucose 151 H Calcium 8.7 06/21/22 06/21/22 07:17 11:54 Anion Gap Estim Creat Clear Calc Estimated GFR POC Glucose 152 H 268 H Random Glucose Calcium Microbiology Microbiology Results: Microbiology 06/19/22 06:30 Blood Culture - Preliminary Blood - Venous No growth after 48 hours. 06/19/22 06:30 Blood Culture - Preliminary Blood - Venous No growth after 48 hours. Assessment and Plan (1) Metabolic acidosis: Status: Acute (2) Acute on chronic kidney failure: Status: Acute (3) Pneumonia: Status: Acute (4) (HFpEF) heart failure with preserved ejection fraction: Status: Acute Plan 56-year-old male with history of insulin-dependent type 2 diabetes, Yang, hypertension, depression, conversion disorder, chronic constipation, vertigo, CKD stage 3, HFpEF, and obesity?admitted for LEDA, metabolic acidosis, and pneumonia #Noro virus gastroenteritis Positive GI panel for Noro negative C diff panel rectal tube ordered given incontinence, to dc dc IVF ondansetron p.r.n. for nausea advance diet as tolerated # Met Acidosis 2/2 acute kidney injury Bicarb improving likely prerenal related to GI loss creatinine improved to 4.6 Baseline creatinine around 2.7 dc IVF nephro input # acute left lower lobe pneumonia with sepsis left basilar opacities possibly infectious versus inflammatory cover with Zosyn and Azithro (initiated 06/19) legionnaire and strep pneumo antigen pending continue supplemental O2 to maintain oximetry above 92% #Acute lactic acidosis secondary to tissue hypoperfusion from hypovolemia, not severe sepsis improved with IVF # Acute exacerbation of HFpEF repeat CXR showed pulm edema recheck BNP continue IV LAsix I\O # insulin-dependent type 2 diabetes without hyperglycemia continue home basal insulin Humalog on sliding scale POC glucose diabetic diet hold p.o. meds # diabetic polyneuropathy continue gabapentin # diabetic gastroparesis continue home meds # hypertension-reasonably controlled continue home meds # depression/anxiety/conversion disorder continue home meds # CKD stage 3, with baseline GFR >30 as above DVT prophylaxis heparin Patient wears inpatient stay of at least overnight for management of LEDA and metabolic acidosis requiring aggressive IV fluid resuscitation, close monitoring of renal function, an expert consultation Time Spent With Patient Time: Total time managing care of this patient today ____ minutes. Quality Stroke Does the patient have a stroke diagnosis?: No VTE Prior VTE?: No VTE Risk Level:: Medical - moderate - high VTE Device Contraindication: Treatment Not Indicated VTE Drug Contraindication: N/A - Med Ordered
[2022-06-21] MEDS: Azithromycin 500 MG in 0.9 % Sodium Chloride 250 ML 125 MG IV (14:28)
[2022-06-21] MEDS: amLODIPine Besylate 5 MG TABLET PO (14:32)
[2022-06-21 15:28] VITALS: BP 196/91; PULSE 80; RESP 17; TEMP 36.6; O2SAT 98
[2022-06-21 15:54] LABS: Glucose, Whole Blood 313 mg/dL (60-115)
[2022-06-21 19:48] VITALS: BP 169/93; PULSE 95; RESP 17; TEMP 37.6; O2SAT 94
[2022-06-21 20:26] LABS: Glucose, Whole Blood 216 mg/dL (60-115)
[2022-06-21] MEDS: traZODone HCL 50 MG TABLET 150 MG PO (21:37)
[2022-06-22] VITALS (11 sets, daily range): BP systolic 157–190; BP diastolic 72–81; PULSE 60–100; RESP 18–22; TEMP 36.6–37.1; O2SAT 92–97
[2022-06-22] MEDS: 0.9 % Sodium Chloride Flush 3 ML SYRINGE IVFLUSH ×4 (00:08→23:54)
[2022-06-22] MEDS: Heparin Sodium,Porcine 5,000 UNIT/ML VIAL 5000 UNIT SUBCUT ×2 (00:08→12:02)
[2022-06-22] MEDS: Piperacillin Sodium/Tazobactam 2.25 GM in 0.9 % Sodium Chloride 50 ML IV ×4 (03:31→21:40)
--- NOTE | 2022-06-22 07:00 | CA_ITS ---
Transthoracic Echocardiogram Limited Patient (Last, First, Middle): Larry Dias V Gender: Male Date of : 1965 Age: 56 Procedure Date: 06/22/2022 Procedure Type: Transthoracic Echocardiogram Limited Location: [facility] [place] Height: 175.26 cm Weight: 98.43 kg BSA: 2.14 m2 Heart Rate: bpm BP: 158 / 72 mmHg Junior Media Buyer: Referring MD: Erica Peres MD Symptoms: CHF, re-assess LV Function Study Quality: Adequate ECG Rhythm: Sinus Conclusions: - 1. Normal LV systolic function with mild LVH with impaired relaxation filling pattern 2. Normal RV systolic pressure Findings Left Ventricle Normal left ventricular size and systolic function. There is mildly increased left ventricular wall thickness. The visually estimated ejection fraction is between 60-65%. Spectral Doppler is indicative of an impaired relaxation filling pattern. E/E prime ratio is between 8 and 15 consistent with indeterminate filling pressures. Right Ventricle Mildly increased right ventricular cavity size. There is normal right ventricular systolic function. Tricuspid Valve There is no tricuspid valve regurgitation. The right ventricular systolic pressure is normal. There is no evidence of pulmonary hypertension. Pericardium/Pleural There is no evidence of pericardial effusion. Prior Study Comparison No significant change compared to prior study dated: 05/24/2022. Measurements 2D Linear Measurements IVSd: 1.24 0.6-0.9/0.6-1.0 cm LVIDd: 4.29 3.9-5.3/4.2-5.9 cm LVIDd Index: 2.00 2.4-3.2/2.2-3.1 cm/m2 LVIDs: 2.62 2.0-3.6 cm LVPWd: 1.25 0.7-1.1 cm LV Mass: 242.02 67-162/88-224 g LV Mass Index: 113.09 43-95/49-115 g/m2 LVOT Diam: 2.30 3.0+(-)1.3 cm 2D Systolic Function EF 4C: 55.50 >55% EF 2C: 69.00 >55% EF BiP: 63.50 >55% LVOT LVOT Pk Adrian: 1.17 LVOT Mn Adrian: 0.72 LVOT VTI: 0.25 LVOT Pk Grad: 5.00 LVOT Mn Grad: 3.00 LVOT Diam: 2.30 LVOT Area: 4.15 Tricuspid Valve TR Pk Adrian: 1.95 TR Pk Grad: 15.00 RA Press: 3.00 RVSP: 18.00 Updated in Other Vendor System with Status of Final Handy Collins MD electronically signed on 06/23/2022 11:29:10 AM with status of Final
[2022-06-22 07:38] LABS: Glucose, Whole Blood 181 mg/dL (60-115)
[2022-06-22 07:40] LABS: Anion Gap 17 (12-20); Blood Urea Nitrogen 81 mg/dL (9-16); Calcium 8.7 mg/dL (8.4-10.2); Carbon Dioxide 20 mmol/L (22-29); Chloride 104 mmol/L (96-108); Creatinine Clr Calc Pharmacy 22.1; Estimated Glomerular Filt Rate 14; Glucose Random 175 mg/dL (60-115); Sodium 137 mmol/L (135-145)
[2022-06-22] MEDS: Famotidine 20 MG TABLET PO ×2 (07:56→21:06)
[2022-06-22] MEDS: Metoclopramide HCl 5 MG TABLET PO ×4 (07:56→21:07)
[2022-06-22] MEDS: Labetalol HCL 100 MG TABLET 300 MG PO ×2 (07:57→21:07)
[2022-06-22] MEDS: Venlafaxine HCl ER 150 MG CAP.ER.24H PO (07:57)
[2022-06-22] MEDS: Multivitamin TABLET 1 TAB PO (07:57)
[2022-06-22] MEDS: Gabapentin 300 MG CAPSULE PO ×2 (07:57→21:07)
[2022-06-22] MEDS: Simethicone 80 MG TAB.CHEW 160 MG PO ×3 (07:57→21:06)
[2022-06-22] MEDS: buPROPion HCl XL 150 MG TAB.ER.24H PO (07:57)
[2022-06-22] MEDS: Cholecalciferol (Vitamin D3) 25 MCG TABLET 50 MCG PO (07:57)
[2022-06-22] MEDS: Insulin Lispro 100 UNIT/ML 3 ML VIAL SUBCUT ×4 (07:58→21:07)
[2022-06-22] MEDS: amLODIPine Besylate 5 MG TABLET PO (08:15)
[2022-06-22 09:08] LABS: B Type Natriuretic Peptide 129 pg/mL (<100)
[2022-06-22] MEDS: Furosemide 40 MG/4 ML VIAL IVPUSH ×2 (09:25→17:07)
[2022-06-22 11:03] LABS: Glucose, Whole Blood 284 mg/dL (60-115)
--- NOTE | 2022-06-22 11:44 | PM.PNNEP ---
Subjective Subjective Date of Service: 06/22/22 Interval history: seen and examined d/w medical attending c/o SOB Physical Exam Vital Signs: Vital Signs: Last Vital Signs Temp 98.2 F 06/22/22 07:47 Pulse 84 06/22/22 11:27 Resp 20 06/22/22 11:27 BP 158/72 H 06/22/22 07:47 Pulse Ox 96 06/22/22 11:27 O2 Del Method High Flow Nasal C annula 06/22/22 11:27 O2 Flow Rate 11 06/22/22 07:47 Oxygen Flow Rate 4 06/19/22 06:00 BMI result Body Mass Index 32.1 Const: General: no acute distress HEENT: Head: Yes normocephalic and Yes atraumatic Resp: Auscultation: diminished lung sounds Cardio: Heart sounds: S1 normal heart sound present and S2 normal heart sound present GI: Palpation (GI): Soft to palpation Extrem: General: Yes edema Objective Data Labs 06/19/22 12:42 06/22/22 06:49 Labs: Laboratory Results - last 24 hr 06/21/22 06/21/22 06/21/22 11:54 15:31 19:50 Sodium Potassium Chloride Carbon Dioxide Anion Gap BUN Creatinine Estim Creat Clear Calc Estimated GFR POC Glucose 268 H 313 H 216 H Random Glucose Calcium B-Natriuretic Peptide 06/22/22 06/22/22 06/22/22 06:49 06:49 07:33 Sodium 137 Potassium 4.0 Chloride 104 Carbon Dioxide 20 L Anion Gap 17 BUN 81 H Creatinine 4.32 H* Estim Creat Clear Calc 22.1 Estimated GFR 14 POC Glucose 181 H Random Glucose 175 H Calcium 8.7 B-Natriuretic Peptide 129 H 06/22/22 10:54 Sodium Potassium Chloride Carbon Dioxide Anion Gap BUN Creatinine Estim Creat Clear Calc Estimated GFR POC Glucose 284 H Random Glucose Calcium B-Natriuretic Peptide Microbiology Microbiology Results: Microbiology 06/19/22 06:30 Blood - Venous Blood Culture - Preliminary No growth after 48 hours. 06/19/22 06:30 Blood - Venous Blood Culture - Preliminary No growth after 48 hours. Procedures Date of Service Date of Service: 06/22/22 Assessment & Plan Assessment and plan (1) LEDA (acute kidney injury): Status: Resolved (2) (HFpEF) heart failure with preserved ejection fraction: Status: Acute (3) CKD (chronic kidney disease) stage 4, GFR 15-29 ml/min: Status: Inactive Plan kidney function better LEDA due to compromised kidney perfusion known severe CKD due to DM/HTN baseline Scr 2.5-3 mg/dl followed by Dr Graham STONE IV furosemide follow kidney function and electrolytes Time Spent With Patient Time: Total time managing care of this patient today ____ minutes. Progress Note: Quality Stroke Does the patient have a stroke diagnosis?: No
--- NOTE | 2022-06-22 13:38 | P.PNIM_ITS ---
Subjective Subjective Date of Service: 06/22/22 Interval History: Seen and evaluated this morning Placed on High flow by RT report diarrhea improving having difficulties breathing with increased oxygen requirements weaning O2 down Review of Systems Review of Systems: Yes all other systems are reviewed and are negative Physical Exam Vital Signs: Vital Signs: Last Vital Signs Temp 98.2 F 06/22/22 07:47 Pulse 84 06/22/22 11:27 Resp 20 06/22/22 11:53 BP 158/72 H 06/22/22 07:47 Pulse Ox 96 06/22/22 11:27 O2 Del Method High Flow Nasal C annula 06/22/22 11:27 O2 Flow Rate 11 06/22/22 07:47 Oxygen Flow Rate 4 06/19/22 06:00 BMI result Body Mass Index 32.1 Const: Other: Constitutional : Awake, interactive, not in distress Neck : Normal inspection, Supple Cardiovascular : RRR, no JVP, trace lower extremity edema Respiratory : good bilateral air entry, basal bilateral crackles, no wheezes or rhonchi Gastrointestinal: soft, lax, Normal bowel sounds, Non tender Skin : Warm, Dry Neurological : Alert & oriented x3, No focal deficit Objective Data Active Medications Amlodipine Besylate (Amlodipine Besylate 5 Mg Tablet) 5 mg PO DAILY [facility]; Protocol Last Admin: 06/22/22 08:15 Dose: 5 mg Documented By: COLTON Bupropion HCl (Bupropion Hcl Xl 150 Mg Tab.Er.24h) 150 mg PO DAILY [facility] Last Admin: 06/22/22 07:57 Dose: 150 mg Documented By: COLTON Clonazepam (Clonazepam 0.5 Mg Tablet) 0.5 mg PO TID PRN PRN Reason: anxiety Last Admin: 06/20/22 22:45 Dose: 0.5 mg Documented By: SAHIL Famotidine (Famotidine 20 Mg Tablet) 20 mg PO BID [facility] Last Admin: 06/22/22 07:56 Dose: 20 mg Documented By: COLTON Furosemide (Furosemide 40 Mg/4 Ml Vial) 40 mg IVPUSH BID@0900,1800 [facility]; Protocol Last Admin: 06/22/22 09:25 Dose: 40 mg Documented By: COLTON Gabapentin (Gabapentin 300 Mg Capsule) 300 mg PO BEDTIME [facility] Glucose (Glucose Gel 15 Gm Gel..Gram.) 15 gm PO Q15M PRN; Protocol PRN Reason: per Hypoglycemia Standing Ord. Guaifenesin (Guaifenesin 200 Mg/10 Ml 10 Ml Liquid) 10 ml PO Q4H PRN PRN Reason: Cough Heparin Sodium (Porcine) (Heparin Sodium,Porcine 5,000 Unit/Ml Vial) 5,000 unit SUBCUT Q12H [facility] Last Admin: 06/22/22 12:02 Dose: 5,000 unit Documented By: COLTON Dextrose (D10) 250 mls @ 750 mls/hr IV Q15M PRN; Protocol PRN Reason: per Hypoglycemia Standing Ord. Azithromycin 500 mg/ Sodium (Chloride) 250 mls @ 125 mls/hr IV Q24H [facility] Last Infusion: 06/21/22 16:52 Dose: 0 mls/hr Documented By: COLTON Piperacillin Sod/Tazobactam (Sod 2.25 gm/ Sodium Chloride) 50 mls @ 100 mls/hr IV Q6H [facility] Last Infusion: 06/22/22 08:39 Dose: 0 mls/hr Documented By: COLTON Insulin Human Lispro (Insulin Lispro 100 Unit/Ml 3 Ml Vial) 0 unit SUBCUT QIDACHS [facility]; Protocol Last Admin: 06/22/22 12:03 Dose: 6 unit Documented By: COLTON Labetalol HCl (Labetalol Hcl 100 Mg Tablet) 300 mg PO BID [facility] Last Admin: 06/22/22 07:57 Dose: 300 mg Documented By: COLTON Meclizine HCl (Meclizine Hcl 25 Mg Tablet) 25 mg PO Q6H PRN PRN Reason: Dizziness Metoclopramide HCl (Metoclopramide Hcl 5 Mg Tablet) 5 mg PO QID [facility] Last Admin: 06/22/22 12:03 Dose: 5 mg Documented By: COLTON Multivitamins/Vitamin C (Multivitamin Tablet) 1 tab PO DAILY [facility] Last Admin: 06/22/22 07:57 Dose: 1 tab Documented By: COLTON Simethicone (Simethicone 80 Mg Tab.Chew) 160 mg PO TID [facility] Last Admin: 06/22/22 07:57 Dose: 160 mg Documented By: COLTON Sodium Chloride (0.9 % Sodium Chloride Flush 3 Ml Syringe) 3 ml IVFLUSH QSHIFT [facility] Last Admin: 06/22/22 07:58 Dose: 3 ml Documented By: COLTON Trazodone HCl (Trazodone Hcl 50 Mg Tablet) 150 mg PO BEDTIME [facility] Last Admin: 06/21/22 21:37 Dose: 150 mg Documented By: AURA Venlafaxine HCl (Venlafaxine Hcl Er 150 Mg Cap.Er.24h) 150 mg PO DAILY [facility] Last Admin: 06/22/22 07:57 Dose: 150 mg Documented By: COLTON Vitamin D (Cholecalciferol (Vitamin D3) 25 Mcg Tablet) 50 mcg PO DAILY [facility] Last Admin: 06/22/22 07:57 Dose: 50 mcg Documented By: COLTON Labs 06/19/22 12:42 06/22/22 06:49 Labs: Laboratory Results - last 24 hr 06/21/22 06/21/22 06/22/22 15:31 19:50 06:49 Anion Gap 17 Estim Creat Clear Calc 22.1 Estimated GFR 14 POC Glucose 313 H 216 H Random Glucose 175 H Calcium 8.7 B-Natriuretic Peptide 06/22/22 06/22/22 06/22/22 06:49 07:33 10:54 Anion Gap Estim Creat Clear Calc Estimated GFR POC Glucose 181 H 284 H Random Glucose Calcium B-Natriuretic Peptide 129 H Assessment and Plan (1) Metabolic acidosis: Status: Acute (2) Pneumonia: Status: Acute (3) Acute on chronic kidney failure: Status: Acute (4) (HFpEF) heart failure with preserved ejection fraction: Status: Acute (5) Acute respiratory failure with hypoxia: Status: Acute Plan 56-year-old male with history of insulin-dependent type 2 diabetes, Yang, hypertension, depression, conversion disorder, chronic constipation, vertigo, CKD stage 3, HFpEF, and obesity?admitted for LEDA, metabolic acidosis, and pneum onia #Noro virus gastroenteritis Positive GI panel for Noro negative C diff panel DC rectal tube dc IVF ondansetron p.r.n. for nausea advance diet as tolerated # Met Acidosis 2/2 acute kidney injury Bicarb improving likely prerenal related to GI loss creatinine improved to 4.3 Baseline creatinine around 2.7 dc IVF nephro input appreciated # Acute hypoxic respiratory failure 2/2 acute left lower lobe pneumonia with sepsis left basilar opacities possibly infectious versus inflammatory cover with Zosyn and Azithro (initiated 06/19) legionnaire and strep pneumo antigen pending continue supplemental O2 to maintain oximetry above 92% #Acute lactic acidosis secondary to tissue hypoperfusion from hypovolemia, not severe sepsis improved with IVF # Acute exacerbation of HFpEF repeat CXR showed pulm edema mildly elevated BNP Pending ECHO continue IV LAsix I\O # insulin-dependent type 2 diabetes without hyperglycemia continue home basal insulin Humalog on sliding scale POC glucose diabetic diet hold p.o. meds # diabetic polyneuropathy continue gabapentin # diabetic gastroparesis continue home meds # hypertension-reasonably controlled continue home meds # depression/anxiety/conversion disorder continue home meds # CKD stage 3, with baseline GFR >30 as above DVT prophylaxis heparin Patient wears inpatient stay overnight for management of LEDA and metabolic acidosis requiring aggressive IV fluid resuscitation, close monitoring of renal function, an expert consultation Time Spent With Patient Time: Total time managing care of this patient today ____ minutes. Quality Stroke Does the patient have a stroke diagnosis?: No VTE Prior VTE?: No VTE Risk Level:: Medical - moderate - high VTE Device Contraindication: Treatment Not Indicated VTE Drug Contraindication: N/A - Med Ordered
[2022-06-22 15:50] LABS: Glucose, Whole Blood 233 mg/dL (60-115)
--- NOTE | 2022-06-22 16:32 | MHC.CM.PN ---
EMR REVIEWED AND PER MD ROUNDS, PT NOT MEDICALLY CLEARED FOR DC. (IV LASIX, LEDA) CM WILL CONTINUE TO FOLLOW.
[2022-06-22] MEDS: Azithromycin 500 MG in 0.9 % Sodium Chloride 250 ML 125 MG IV (17:07)
[2022-06-22] MEDS: hydrALAZINE HCl 25 MG TABLET PO ×2 (18:45→21:07)
[2022-06-22 19:22] LABS: Influenza A PCR NEGATIVE (Negative); Influenza B PCR NEGATIVE (Negative); Resp Syncy Virus RNA Qual PCR NEGATIVE (Negative); SARS COV2 PCR INHOUSE NEGATIVE (Negative)
[2022-06-22 20:03] LABS: Glucose, Whole Blood 310 mg/dL (60-115)
[2022-06-22] MEDS: traZODone HCL 50 MG TABLET 150 MG PO (21:07)
[2022-06-23] VITALS (10 sets, daily range): BP systolic 154–204; BP diastolic 73–94; PULSE 67–98; RESP 18–22; TEMP 36.6–37.1; O2SAT 91–98
--- NOTE | 2022-06-23 | ECG_ITS ---
Test Reason : R O ischemic injury Blood Pressure : / mmHG Vent. Rate : 081 BPM Atrial Rate : 081 BPM P-R Int : 142 ms QRS Dur : 080 ms QT Int : 376 ms P-R-T Axes : 023 008 027 degrees QTc Int : 436 ms Normal sinus rhythm Minimal voltage criteria for LVH, may be normal variant ( R in aVL ) Borderline ECG When compared with ECG of 19-JUN-2022 06:17, No significant change was found Referred By: Erica Peres Electronically Signed By:
[2022-06-23] MEDS: Heparin Sodium,Porcine 5,000 UNIT/ML VIAL 5000 UNIT SUBCUT ×3 (03:41→23:47)
[2022-06-23] MEDS: Piperacillin Sodium/Tazobactam 2.25 GM in 0.9 % Sodium Chloride 50 ML IV ×4 (03:41→20:37)
[2022-06-23 07:45] LABS: Hematocrit 26.3 % (42.0-52.0); Mean Corpuscular HGB Conc 34.2 g/dl (31.0-36.0); Mean Corpuscular Hemoglobin 29.2 pg (27.0-33.0); Mean Corpuscular Volume 85.4 fL (80.0-98.0); Mean Platelet Volume 10.5 fL (9.4-12.4); Platelet Count 193 X10*3/uL (160-400); Red Blood Count 3.08 X10*6/uL (4.60-5.80); Red Cell Distribution Width 12.5 % (11.0-16.0); White Blood Count 11.2 X10*3/uL (4.8-10.8)
[2022-06-23 07:58] LABS: Glucose, Whole Blood 207 mg/dL (60-115)
[2022-06-23 08:16] LABS: B Type Natriuretic Peptide 383 pg/mL (<100)
[2022-06-23 08:21] LABS: Anion Gap 20 (12-20); Blood Urea Nitrogen 84 mg/dL (9-16); Carbon Dioxide 20 mmol/L (22-29); Chloride 102 mmol/L (96-108); Creatinine Clr Calc Pharmacy 22.7; Estimated Glomerular Filt Rate 15; Glucose Random 226 mg/dL (60-115); Sodium 138 mmol/L (135-145)
[2022-06-23 08:22] LABS: Alanine Aminotransferase 39 U/L (0-40); Albumin Level 3.1 g/dL (3.5-5.0); Alkaline Phosphatase 322 U/L (39-117); Aspartate Amino Transferase 27 U/L (5-37); Bilirubin Direct 0.4 mg/dL (0.0-0.5); Bilirubin Total 0.7 mg/dL (0.0-1.0); Total Protein 6.1 g/dL (6.5-8.0)
[2022-06-23] MEDS: Insulin Lispro 100 UNIT/ML 3 ML VIAL SUBCUT ×5 (08:26→20:36)
[2022-06-23] MEDS: Furosemide 40 MG/4 ML VIAL IVPUSH (08:26)
[2022-06-23] MEDS: Labetalol HCL 100 MG TABLET 300 MG PO ×2 (08:26→20:37)
[2022-06-23] MEDS: hydrALAZINE HCl 25 MG TABLET PO ×3 (08:27→20:37)
[2022-06-23] MEDS: buPROPion HCl XL 150 MG TAB.ER.24H PO (08:27)
[2022-06-23] MEDS: Multivitamin TABLET 1 TAB PO (08:27)
[2022-06-23] MEDS: Venlafaxine HCl ER 150 MG CAP.ER.24H PO (08:27)
[2022-06-23] MEDS: Famotidine 20 MG TABLET PO ×2 (08:27→20:37)
[2022-06-23] MEDS: Simethicone 80 MG TAB.CHEW 160 MG PO ×3 (08:27→20:36)
[2022-06-23] MEDS: Metoclopramide HCl 5 MG TABLET PO ×4 (08:27→20:37)
[2022-06-23] MEDS: Cholecalciferol (Vitamin D3) 25 MCG TABLET 50 MCG PO (08:27)
[2022-06-23] MEDS: amLODIPine Besylate 5 MG TABLET PO (08:27)
[2022-06-23] MEDS: 0.9 % Sodium Chloride Flush 3 ML SYRINGE IVFLUSH ×3 (08:27→23:45)
--- NOTE | 2022-06-23 09:30 | HO.PM.IMPN ---
Subjective Subjective Date of Service: 06/23/22 Interval History: Seen and evaluated this morning still on High flow by RT, weaning him down report diarrhea improving having difficulties breathing with increased oxygen requirements diarrhea resolving weaning O2 down Review of Systems Review of Systems: Yes all other systems are reviewed and are negative Physical Exam Vital Signs: Vital Signs: Last Vital Signs Temp 97.9 F 06/23/22 07:22 Pulse 81 06/23/22 07:22 Resp 18 06/23/22 08:11 BP 178/90 H 06/23/22 07:22 Pulse Ox 96 06/23/22 07:22 O2 Del Method High Flow Nasal C annula 06/23/22 07:22 O2 Flow Rate 45 06/23/22 07:22 FiO2 65 06/23/22 07:22 Oxygen Flow Rate 4 06/19/22 06:00 BMI result Body Mass Index 32.1 Const: Other: Constitutional : Awake, interactive, in mild resp distress Neck : Normal inspection, Supple Cardiovascular : RRR, JVP, trace lower extremity edema Respiratory : good bilateral air entry, basal bilateral crackles, no wheezes or rhonchi, on high flow oxygen Gastrointestinal: soft, lax, Normal bowel sounds, Non tender Skin : Warm, Dry Neurological : Alert & oriented x3, No focal deficit Objective Data Active Medications Amlodipine Besylate (Amlodipine Besylate 5 Mg Tablet) 5 mg PO DAILY [facility]; Protocol Last Admin: 06/23/22 08:27 Dose: 5 mg Documented By: JULIO Bupropion HCl (Bupropion Hcl Xl 150 Mg Tab.Er.24h) 150 mg PO DAILY [facility] Last Admin: 06/23/22 08:27 Dose: 150 mg Documented By: JULIO Clonazepam (Clonazepam 0.5 Mg Tablet) 0.5 mg PO TID PRN PRN Reason: anxiety Last Admin: 06/20/22 22:45 Dose: 0.5 mg Documented By: SAHIL Famotidine (Famotidine 20 Mg Tablet) 20 mg PO BID [facility] Last Admin: 06/23/22 08:27 Dose: 20 mg Documented By: JULIO Furosemide (Furosemide 40 Mg/4 Ml Vial) 40 mg IVPUSH BID@0900,1800 [facility]; Protocol Last Admin: 06/23/22 08:26 Dose: 40 mg Documented By: JULIO Gabapentin (Gabapentin 300 Mg Capsule) 300 mg PO BEDTIME [facility] Last Admin: 06/22/22 21:07 Dose: 300 mg Documented By: RANDY Glucose (Glucose Gel 15 Gm Gel..Gram.) 15 gm PO Q15M PRN; Protocol PRN Reason: per Hypoglycemia Standing Ord. Guaifenesin (Guaifenesin 200 Mg/10 Ml 10 Ml Liquid) 10 ml PO Q4H PRN PRN Reason: Cough Heparin Sodium (Porcine) (Heparin Sodium,Porcine 5,000 Unit/Ml Vial) 5,000 unit SUBCUT Q12H [facility] Last Admin: 06/23/22 03:41 Dose: 5,000 unit Documented By: RANDY Hydralazine HCl (Hydralazine Hcl 25 Mg Tablet) 25 mg PO TID [facility]; Protocol Last Admin: 06/23/22 08:27 Dose: 25 mg Documented By: JULIO Dextrose (D10) 250 mls @ 750 mls/hr IV Q15M PRN; Protocol PRN Reason: per Hypoglycemia Standing Ord. Azithromycin 500 mg/ Sodium (Chloride) 250 mls @ 125 mls/hr IV Q24H [facility] Last Infusion: 06/22/22 19:38 Dose: 125 mls/hr Documented By: RANDY Piperacillin Sod/Tazobactam (Sod 2.25 gm/ Sodium Chloride) 50 mls @ 100 mls/hr IV Q6H [facility] Last Infusion: 06/23/22 09:22 Dose: 0 mls/hr Documented By: GAVIN Insulin Human Lispro (Insulin Lispro 100 Unit/Ml 3 Ml Vial) 0 unit SUBCUT QIDACHS [facility]; Protocol Last Admin: 06/23/22 08:26 Dose: 4 unit Documented By: JULIO Labetalol HCl (Labetalol Hcl 100 Mg Tablet) 300 mg PO BID [facility] Last Admin: 06/23/22 08:26 Dose: 300 mg Documented By: JULIO Meclizine HCl (Meclizine Hcl 25 Mg Tablet) 25 mg PO Q6H PRN PRN Reason: Dizziness Metoclopramide HCl (Metoclopramide Hcl 5 Mg Tablet) 5 mg PO QID [facility] Last Admin: 06/23/22 08:27 Dose: 5 mg Documented By: JULIO Multivitamins/Vitamin C (Multivitamin Tablet) 1 tab PO DAILY [facility] Last Admin: 06/23/22 08:27 Dose: 1 tab Documented By: JULIO Simethicone (Simethicone 80 Mg Tab.Chew) 160 mg PO TID [facility] Last Admin: 06/23/22 08:27 Dose: 160 mg Documented By: JULIO Sodium Chloride (0.9 % Sodium Chloride Flush 3 Ml Syringe) 3 ml IVFLUSH QSHIFT [facility] Last Admin: 06/23/22 08:27 Dose: 3 ml Documented By: JULIO Trazodone HCl (Trazodone Hcl 50 Mg Tablet) 150 mg PO BEDTIME [facility] Last Admin: 06/22/22 21:07 Dose: 150 mg Documented By: RANDY Venlafaxine HCl (Venlafaxine Hcl Er 150 Mg Cap.Er.24h) 150 mg PO DAILY [facility] Last Admin: 06/23/22 08:27 Dose: 150 mg Documented By: JULIO Vitamin D (Cholecalciferol (Vitamin D3) 25 Mcg Tablet) 50 mcg PO DAILY [facility] Last Admin: 06/23/22 08:27 Dose: 50 mcg Documented By: JULIO Labs 06/23/22 07:18 06/23/22 07:18 Labs: Laboratory Results - last 24 hr 06/22/22 06/22/22 06/22/22 10:54 15:35 17:50 MCV MCH MCHC RDW Plt Count MPV Absolute Nucleated RBC Nucleated RBC % (auto) Anion Gap Estim Creat Clear Calc Estimated GFR POC Glucose 284 H 233 H Random Glucose Calcium Total Bilirubin Direct Bilirubin AST ALT Alkaline Phosphatase B-Natriuretic Peptide Total Protein Albumin Influenza Type A (PCR) NEGATIVE Influenza Type B (PCR) NEGATIVE RSV RNA Qual (PCR) NEGATIVE SARS-CoV-2 RNA (RT-PCR) NEGATIVE 06/22/22 06/23/22 06/23/22 19:49 07:18 07:18 MCV 85.4 MCH 29.2 MCHC 34.2 RDW 12.5 Plt Count 193 MPV 10.5 Absolute Nucleated RBC 0.000 Nucleated RBC % (auto) 0.0 Anion Gap 20 Estim Creat Clear Calc 22.7 Estimated GFR 15 POC Glucose 310 H Random Glucose 226 H Calcium 9.0 Total Bilirubin Direct Bilirubin AST ALT Alkaline Phosphatase B-Natriuretic Peptide Total Protein Albumin Influenza Type A (PCR) Influenza Type B (PCR) RSV RNA Qual (PCR) SARS-CoV-2 RNA (RT-PCR) 06/23/22 06/23/22 06/23/22 07:18 07:18 07:27 MCV MCH MCHC RDW Plt Count MPV Absolute Nucleated RBC Nucleated RBC % (auto) Anion Gap Estim Creat Clear Calc Estimated GFR POC Glucose 207 H Random Glucose Calcium Total Bilirubin 0.7 Direct Bilirubin 0.4 AST 27 ALT 39 Alkaline Phosphatase 322 H B-Natriuretic Peptide 383 H Total Protein 6.1 L Albumin 3.1 L Influenza Type A (PCR) Influenza Type B (PCR) RSV RNA Qual (PCR) SARS-CoV-2 RNA (RT-PCR) Assessment and Plan (1) Acute respiratory failure with hypoxia: Status: Acute (2) Metabolic acidosis: Status: Acute (3) Pneumonia: Status: Acute (4) Acute on chronic kidney failure: Status: Acute (5) (HFpEF) heart failure with preserved ejection fraction: Status: Acute Plan 56-year-old male with history of insulin-dependent type 2 diabetes, Yang, hypertension, depression, conversion disorder, chronic constipation, vertigo, CKD stage 3, HFpEF, and obesity?admitted for LEDA, metabolic acidosis, and pneumonia #Noro virus gastroenteritis Positive GI panel for Noro negative C diff panel ondansetron p.r.n. for nausea advance diet as tolerated # Met Acidosis 2/2 acute kidney injury Bicarb improving likely prerenal related to GI loss creatinine improved to 4.2 Baseline creatinine around 2.7 dc IVF nephro input appreciated # Acute exacerbation of HFpEF repeat CXR showed pulm edema mildly elevated BNP Pending ECHO continue IV LAsix I\O get cardiology eval # Acute hypoxic respiratory failure 2/2 acute left lower lobe pneumonia with sepsis left basilar opacities possibly infectious versus inflammatory cover with Zosyn and Azithro (initiated 06/19) legionnaire and strep pneumo antigen pending continue supplemental O2 to maintain oximetry above 92% #Acute lactic acidosis secondary to tissue hypoperfusion from hypovolemia, not severe sepsis # insulin-dependent type 2 diabetes without hyperglycemia continue home basal insulin Humalog on sliding scale POC glucose diabetic diet hold p.o. meds # diabetic polyneuropathy continue gabapentin # diabetic gastroparesis continue home meds # hypertension-reasonably controlled continue home meds # depression/anxiety/conversion disorder continue home meds # CKD stage 3, with baseline GFR >30 as above DVT prophylaxis heparin Patient wears inpatient stay overnight for management of LEDA and metabolic acidosis , PNA, heart failure pending weaning down O2 supplement Time Spent With Patient Time: Total time managing care of this patient today ____ minutes. Quality Stroke Does the patient have a stroke diagnosis?: No VTE Prior VTE?: No VTE Risk Level:: Medical - moderate - high VTE Device Contraindication: Treatment Not Indicated VTE Drug Contraindication: N/A - Med Ordered
[2022-06-23 11:39] LABS: Glucose, Whole Blood 319 mg/dL (60-115)
[2022-06-23] MEDS: methylPREDNISolone Sod Succ 40 MG/ML VIAL IVPUSH (12:33)
--- NOTE | 2022-06-23 12:40 | P.CONCA_ITS ---
History of Present Illness History of Present Illness Date of Service: 06/23/22 Requesting physician: Erica Peres Consult reason: other (HYPOXEMIC RESPIRATORY FAILURE) Chief complaint: Diarrhea Pneumonia Dehydration Narrative: I was consulted to see 1 in cardiology consultation today due to hypoxemic respiratory failure requiring high flow oxygen therapy. Patient with prior history of heart failure preserved ejection fraction and difficult to control blood pressure question renal artery stenosis chronic advanced kidney disease, diabetes, depression came to the hospital with worsening diarrhea and abdominal pain as well as vomiting. Patient says this happened after a he and his siblings had [place] fried chicken and felt that this was under good. Following that he started having the symptoms. His siblings also have some gastrointestinal symptoms. He then started feeling weak and fell forward to the floor without losing consciousness. He also was having some dry cough and shortness of breath. He came to the emergency room. In the Emergency was noted to have worsening kidney function compared to baseline with leukocytosis and lactic, acidosis. Patient received some fluid not aggressive fluid intervention due to concern for prior heart failure. He has received IV antibiotics. He was admitted to the hospitalist team and has had gradually worsening respiratory status requiring high-flow oxygen. Echocardiogram was done yesterday which showed no changes in his LV ejection fraction actually his RV systolic pressures are within normal limits with normal right atrial pressures. Been diuresed and with negative balance he seems like is oxygen level is stable. He continues to say that he has shortness of breath but says slightly better compared to yesterday. He has no leg edema. He denies any chest pain. His EKG on admission did not show any acute ischemia. His BNP is marginally elevated initially in the 100 range not in the 300 range. Review of Systems Constitutional: Constitutional: Reports malaise and Reports weakness Cardiovascular: Cardiovascular: Denies chest pain, Denies leg edema, Denies lightheadedness, Denies Loss of Consciousness, Denies palpitations and Reports dyspnea Respiratory: Respiratory: Reports dyspnea Gastrointestinal: Gastrointestinal: Reports abdominal pain, Reports diarrhea and Reports vomiting Genitourinary: Genitourinary: Reports no additional male genitourinary complaints Integumentary/Breasts: Skin/Breast: Reports system reviewed and no additional complaints, except as docu Neurologic: Reports system reviewed and no additional complaints, except as documented and Reports weakness Psychiatric: Psychiatric: Reports no additional psychiatric complaints Endocrine: Endocrine: Denies palpitations PMFSH Past Medical History Medical History Acute hyponatremia Anxiety Chronic hyperglycemia CKD (chronic kidney disease) CKD (chronic kidney disease) CKD (chronic kidney disease) stage 3, GFR 30-59 ml/min CKD (chronic kidney disease) stage 4, GFR 15-29 ml/min Depression Diabetes Diabetes mellitus with coincident hypertension Diabetes type 2, uncontrolled Diabetic nephropathy associated with type 2 diabetes mellitus Diabetic neuropathy associated with type 2 diabetes mellitus Dyslipidemia Essential hypertension GERD (gastroesophageal reflux disease) Hepatitis High cholesterol Hypercalcemia Hyperlipidemia 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 Surgical History Surgical History H/O colonoscopy History of esophagogastroduodenoscopy (EGD) Hx of arthroscopy of knee Hx of arthroscopy of right knee Social History Social History Household Members: Family Household Members Other:: SISTER Housing: Apartment Do you presently have visiting nurse or other home services: Yes Alcohol intake: never Patient Tobacco Use Status: Never used Tobacco e-Cigarette/Vaping Use: Never Used Second Hand Smoke Exposure: Yes (HISTORY OF SECOND HAND SMOKE EXPOSURE) Advance Directives Date on File: 05/05/20 service: No Current occupational status: disabled Current occupation: right handed Cognitive needs: No Hearing needs: No Vision needs: No Meds Allergies Allergy/AdvReac Type Severity Reaction Status Date / Time cephalexin [From KEFLEX] Allergy Mild ITCHY Verified 05/31/22 14:14 THROAT lisinopril [LISINOPRIL] Allergy Unknown SWELLING Verified 05/31/22 14:14 COUGH Active Medications: Current Medications Amlodipine Besylate (Amlodipine Besylate 5 Mg Tablet) 5 mg PO DAILY [facility]; Protocol Last Admin: 06/23/22 08:27 Dose: 5 mg Bupropion HCl (Bupropion Hcl Xl 150 Mg Tab.Er.24h) 150 mg PO DAILY [facility] Last Admin: 06/23/22 08:27 Dose: 150 mg Clonazepam (Clonazepam 0.5 Mg Tablet) 0.5 mg PO TID PRN PRN Reason: anxiety Last Admin: 06/20/22 22:45 Dose: 0.5 mg Famotidine (Famotidine 20 Mg Tablet) 20 mg PO BID [facility] Last Admin: 06/23/22 08:27 Dose: 20 mg Furosemide (Furosemide 40 Mg/4 Ml Vial) 40 mg IVPUSH BID@0900,1800 [facility]; Protocol Last Admin: 06/23/22 08:26 Dose: 40 mg Gabapentin (Gabapentin 300 Mg Capsule) 300 mg PO BEDTIME [facility] Last Admin: 06/22/22 21:07 Dose: 300 mg Glucose (Glucose Gel 15 Gm Gel..Gram.) 15 gm PO Q15M PRN; Protocol PRN Reason: per Hypoglycemia Standing Ord. Guaifenesin (Guaifenesin 200 Mg/10 Ml 10 Ml Liquid) 10 ml PO Q4H PRN PRN Reason: Cough Heparin Sodium (Porcine) (Heparin Sodium,Porcine 5,000 Unit/Ml Vial) 5,000 unit SUBCUT Q12H [facility] Last Admin: 06/23/22 12:34 Dose: 5,000 unit Hydralazine HCl (Hydralazine Hcl 25 Mg Tablet) 25 mg PO TID [facility]; Protocol Last Admin: 06/23/22 08:27 Dose: 25 mg Dextrose (D10) 250 mls @ 750 mls/hr IV Q15M PRN; Protocol PRN Reason: per Hypoglycemia Standing Ord. Azithromycin 500 mg/ Sodium (Chloride) 250 mls @ 125 mls/hr IV Q24H [facility] Last Infusion: 06/22/22 19:38 Dose: Infused Piperacillin Sod/Tazobactam (Sod 2.25 gm/ Sodium Chloride) 50 mls @ 100 mls/hr IV Q6H [facility] Last Infusion: 06/23/22 09:22 Dose: Infused Vancomycin HCl 1,000 mg/Vancomycin HCl 750 mg/ Sodium Chloride 535 mls @ 267.5 mls/hr IV ONCE ONE Stop: 06/23/22 14:10 Insulin Human Lispro (Insulin Lispro 100 Unit/Ml 3 Ml Vial) 0 unit SUBCUT QIDACHS [facility]; Protocol Last Admin: 06/23/22 12:33 Dose: 8 unit Labetalol HCl (Labetalol Hcl 100 Mg Tablet) 300 mg PO BID [facility] Last Admin: 06/23/22 08:26 Dose: 300 mg Meclizine HCl (Meclizine Hcl 25 Mg Tablet) 25 mg PO Q6H PRN PRN Reason: Dizziness Metoclopramide HCl (Metoclopramide Hcl 5 Mg Tablet) 5 mg PO QID [facility] Last Admin: 06/23/22 12:34 Dose: 5 mg Multivitamins/Vitamin C (Multivitamin Tablet) 1 tab PO DAILY [facility] Last Admin: 06/23/22 08:27 Dose: 1 tab Pharmacy Consult (Consult Rx Vancomycin Dosing) 1 each MISCELLANE DAILY PRN PRN Reason: Consult order Simethicone (Simethicone 80 Mg Tab.Chew) 160 mg PO TID [facility] Last Admin: 06/23/22 08:27 Dose: 160 mg Sodium Chloride (0.9 % Sodium Chloride Flush 3 Ml Syringe) 3 ml IVFLUSH QSHIFT [facility] Last Admin: 06/23/22 12:34 Dose: 3 ml Trazodone HCl (Trazodone Hcl 50 Mg Tablet) 150 mg PO BEDTIME [facility] Last Admin: 06/22/22 21:07 Dose: 150 mg Venlafaxine HCl (Venlafaxine Hcl Er 150 Mg Cap.Er.24h) 150 mg PO DAILY [facility] Last Admin: 06/23/22 08:27 Dose: 150 mg Vitamin D (Cholecalciferol (Vitamin D3) 25 Mcg Tablet) 50 mcg PO DAILY [facility] Last Admin: 06/23/22 08:27 Dose: 50 mcg Home Medications Medication Instructions Recorded Confirmed Last Taken Type venlafaxine 150 mg 150 mg PO DAILY 10/30/21 06/19/22 06/18/22 History capsule,extended release 24 hr multivitamin with folic acid 400 1 tab PO DAILY 03/06/22 06/19/22 06/18/22 History mcg tablet (Tab-A-George) pen needle, diabetic 32 gauge x #50 ea 03/06/22 06/02/22 Unknown History 06/14 ([employer]trac[employer] Pen Needle) bupropion HCl 150 mg 24 hr tablet, 150 mg PO DAILY 05/16/22 06/19/22 06/18/22 History extended release insulin aspart U-100 100 unit/mL 14 unit subcut TIDAC 05/16/22 06/19/22 06/18/22 History (3 mL) subcutaneous pen (Novolog FlexPen U-100 Insulin aspart) insulin glargine U-300 conc 300 70 unit subcut DAILY 05/16/22 06/19/22 06/18/22 History unit/mL (3 mL) subcutaneous pen (Toujeo Max U-300 SoloStar) meclizine 25 mg tablet 25 mg PO Q6H PRN Dizziness 05/16/22 06/19/22 06/18/22 History trazodone 150 mg tablet 150 mg PO BEDTIME 05/16/22 06/19/22 06/18/22 History Physical Exam Vital Signs: Vital Signs: Last Vital Signs Temp 97.9 F 06/23/22 07:22 Pulse 81 06/23/22 07:22 Resp 18 06/23/22 11:31 BP 178/90 H 06/23/22 07:22 Pulse Ox 96 06/23/22 07:22 O2 Del Method High Flow Nasal C annula 06/23/22 07:22 O2 Flow Rate 45 06/23/22 07:22 FiO2 65 06/23/22 07:22 Oxygen Flow Rate 4 06/19/22 06:00 BMI result Body Mass Index 32.1 Const: General: cooperative, alert, awake and ill appearing Nutritional Appearance: overweight Orientation/consciousness: patient oriented x3 HEENT: Head: Yes normocephalic and Yes atraumatic Neck: Neck: Yes trachea midline, Yes supple and Yes no JVD Resp: Effort & Inspection: normal respiratory effort Auscultation: clear to auscultation bilaterally Cardio: Jugular venous distension: no JVD Palpation: normal PMI Rate: regular rate Rhythm: regular rhythm Heart sounds: S1 normal heart sound present, S2 normal heart sound present, no click, no gallops, no murmurs and no rubs GI: Auscultation: normal bowel sounds Skin: General skin exam: no rashes or lesions noted Neuro: General: patient oriented x3 and no focal motor deficits Extrem: General: Yes no clubbing, cyanosis or edema Objective Labs and Meds 06/23/22 07:18 06/23/22 07:18 Lab results: Laboratory Results - last 24 hr 06/22/22 06/22/22 06/22/22 15:35 17:50 19:49 WBC RBC Hgb Hct MCV MCH MCHC RDW Plt Count MPV Absolute Nucleated RBC Nucleated RBC % (auto) Sodium Potassium Chloride Carbon Dioxide Anion Gap BUN Creatinine Estim Creat Clear Calc Estimated GFR POC Glucose 233 H 310 H Random Glucose Calcium Total Bilirubin Direct Bilirubin AST ALT Alkaline Phosphatase B-Natriuretic Peptide Total Protein Albumin Influenza Type A (PCR) NEGATIVE Influenza Type B (PCR) NEGATIVE RSV RNA Qual (PCR) NEGATIVE SARS-CoV-2 RNA (RT-PCR) NEGATIVE 06/23/22 06/23/22 06/23/22 07:18 07:18 07:18 WBC 11.2 H RBC 3.08 L D Hgb 9.0 L D Hct 26.3 L D MCV 85.4 MCH 29.2 MCHC 34.2 RDW 12.5 Plt Count 193 MPV 10.5 Absolute Nucleated RBC 0.000 Nucleated RBC % (auto) 0.0 Sodium 138 Potassium 4.0 Chloride 102 Carbon Dioxide 20 L Anion Gap 20 BUN 84 H Creatinine 4.20 H* Estim Creat Clear Calc 22.7 Estimated GFR 15 POC Glucose Random Glucose 226 H Calcium 9.0 Total Bilirubin 0.7 Direct Bilirubin 0.4 AST 27 ALT 39 Alkaline Phosphatase 322 H B-Natriuretic Peptide Total Protein 6.1 L Albumin 3.1 L Influenza Type A (PCR) Influenza Type B (PCR) RSV RNA Qual (PCR) SARS-CoV-2 RNA (RT-PCR) 06/23/22 06/23/22 06/23/22 07:18 07:27 11:15 WBC RBC Hgb Hct MCV MCH MCHC RDW Plt Count MPV Absolute Nucleated RBC Nucleated RBC % (auto) Sodium Potassium Chloride Carbon Dioxide Anion Gap BUN Creatinine Estim Creat Clear Calc Estimated GFR POC Glucose 207 H 319 H Random Glucose Calcium Total Bilirubin Direct Bilirubin AST ALT Alkaline Phosphatase B-Natriuretic Peptide 383 H Total Protein Albumin Influenza Type A (PCR) Influenza Type B (PCR) RSV RNA Qual (PCR) SARS-CoV-2 RNA (RT-PCR) EKG shows normal sinus rhythm with no significant acute ST T wave changes. Assessment and Plan (1) Acute respiratory failure with hypoxia: Status: Acute Patient with acute hypoxemic respiratory failure with prior history of heart failure preserved ejection fraction, clinically does appear to be in florid heart failure. His echocardiogram shows unchanged LV ejection fraction diastolic function no evidence of worsening pulmonary hypertension or right atrial pressures. He has responded to diuretic therapy as per the renal team. However concern would be if he has developed acute lung injury related to sepsis syndrome. Consider critical care consultation. He does have acute kidney injury as well and present with lactic acidosis and leukocytosis. His kidney functions have remained stable. He is not having any ongoing chest pain to suggest myocardial ischemia, however suggest repeat EKG to see the any new changes. Continue supportive care. 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 Continue supportive care. Consider better control blood pressure. Can add nitropaste on hydralazine for blood pressure control. Overall prognosis is guarded. Discussed case with hospitalist team. Will sign of the case at this point in time Time Spent With Patient Time: Total time managing care of this patient today ____ minutes. Procedures Date of Service Date of Service: 06/23/22
[2022-06-23] MEDS: Azithromycin 500 MG in 0.9 % Sodium Chloride 250 ML 125 MG IV (12:46)
[2022-06-23 12:47] LABS: Lactate Dehydrogenase 278 U/L (118-273)
[2022-06-23 13:18] LABS: Erythrocyte Sedimentation Rate 116 MM/HR (0-15)
--- NOTE | 2022-06-23 13:19 | P.PNNP_ITS ---
Subjective Subjective Date of Service: 06/23/22 Interval history: seen and examined d/w cardiology on high flow Physical Exam Vital Signs: Vital Signs: Last Vital Signs Temp 97.9 F 06/23/22 07:22 Pulse 81 06/23/22 07:22 Resp 18 06/23/22 11:31 BP 178/90 H 06/23/22 07:22 Pulse Ox 96 06/23/22 07:22 O2 Del Method High Flow Nasal C annula 06/23/22 07:22 O2 Flow Rate 45 06/23/22 07:22 FiO2 65 06/23/22 07:22 Oxygen Flow Rate 4 06/19/22 06:00 BMI result Body Mass Index 32.1 Const: General: no acute distress HEENT: Head: Yes normocephalic and Yes atraumatic Resp: Auscultation: diminished lung sounds Cardio: Heart sounds: S1 normal heart sound present and S2 normal heart sound present GI: Palpation (GI): Soft to palpation Extrem: General: Yes edema Objective Data Labs 06/23/22 07:18 06/23/22 07:18 Labs: Laboratory Results - last 24 hr 06/22/22 06/22/22 06/22/22 15:35 17:50 19:49 WBC RBC Hgb Hct MCV MCH MCHC RDW Plt Count MPV Absolute Nucleated RBC Nucleated RBC % (auto) ESR Sodium Potassium Chloride Carbon Dioxide Anion Gap BUN Creatinine Estim Creat Clear Calc Estimated GFR POC Glucose 233 H 310 H Random Glucose Calcium Total Bilirubin Direct Bilirubin AST ALT Alkaline Phosphatase Lactate Dehydrogenase B-Natriuretic Peptide Total Protein Albumin Influenza Type A (PCR) NEGATIVE Influenza Type B (PCR) NEGATIVE RSV RNA Qual (PCR) NEGATIVE SARS-CoV-2 RNA (RT-PCR) NEGATIVE 06/23/22 06/23/22 06/23/22 07:18 07:18 07:18 WBC 11.2 H RBC 3.08 L D Hgb 9.0 L D Hct 26.3 L D MCV 85.4 MCH 29.2 MCHC 34.2 RDW 12.5 Plt Count 193 MPV 10.5 Absolute Nucleated RBC 0.000 Nucleated RBC % (auto) 0.0 ESR Sodium 138 Potassium 4.0 Chloride 102 Carbon Dioxide 20 L Anion Gap 20 BUN 84 H Creatinine 4.20 H* Estim Creat Clear Calc 22.7 Estimated GFR 15 POC Glucose Random Glucose 226 H Calcium 9.0 Total Bilirubin 0.7 Direct Bilirubin 0.4 AST 27 ALT 39 Alkaline Phosphatase 322 H Lactate Dehydrogenase B-Natriuretic Peptide Total Protein 6.1 L Albumin 3.1 L Influenza Type A (PCR) Influenza Type B (PCR) RSV RNA Qual (PCR) SARS-CoV-2 RNA (RT-PCR) 06/23/22 06/23/22 06/23/22 07:18 07:27 11:15 WBC RBC Hgb Hct MCV MCH MCHC RDW Plt Count MPV Absolute Nucleated RBC Nucleated RBC % (auto) ESR Sodium Potassium Chloride Carbon Dioxide Anion Gap BUN Creatinine Estim Creat Clear Calc Estimated GFR POC Glucose 207 H 319 H Random Glucose Calcium Total Bilirubin Direct Bilirubin AST ALT Alkaline Phosphatase Lactate Dehydrogenase B-Natriuretic Peptide 383 H Total Protein Albumin Influenza Type A (PCR) Influenza Type B (PCR) RSV RNA Qual (PCR) SARS-CoV-2 RNA (RT-PCR) 06/23/22 06/23/22 12:10 12:10 WBC RBC Hgb Hct MCV MCH MCHC RDW Plt Count MPV Absolute Nucleated RBC Nucleated RBC % (auto) ESR 116 H Sodium Potassium Chloride Carbon Dioxide Anion Gap BUN Creatinine Estim Creat Clear Calc Estimated GFR POC Glucose Random Glucose Calcium Total Bilirubin Direct Bilirubin AST ALT Alkaline Phosphatase Lactate Dehydrogenase 278 H B-Natriuretic Peptide Total Protein Albumin Influenza Type A (PCR) Influenza Type B (PCR) RSV RNA Qual (PCR) SARS-CoV-2 RNA (RT-PCR) Microbiology Microbiology Results: Microbiology 06/19/22 06:30 Blood - Venous Blood Culture - Preliminary No growth after 48 hours. 06/19/22 06:30 Blood - Venous Blood Culture - Preliminary No growth after 48 hours. Procedures Date of Service Date of Service: 06/23/22 Assessment & Plan Assessment and plan (1) LEDA (acute kidney injury): Status: Resolved (2) (HFpEF) heart failure with preserved ejection fraction: Status: Acute (3) CKD (chronic kidney disease) stage 4, GFR 15-29 ml/min: Status: Inactive Plan kidney function marginally better LEDA due to compromised kidney perfusion known severe CKD due to DM/HTN baseline Scr 2.5-3 mg/dl followed by Dr Stevenson cardiogenic versus non cardiogenic pulmonary edema ARDS like picture REC furosemide gtt no indication for MANAGER ENVIRONMENTAL follow kidney function and electrolytes Time Spent With Patient Time: Total time managing care of this patient today ____ minutes. Progress Note: Quality Stroke Does the patient have a stroke diagnosis?: No
--- NOTE | 2022-06-23 13:49 | PM.CCN ---
Critical Care Event Note Summary Date of Service: 06/23/22 Code activated: No Narrative: Case reviewed and recommendations for albumin augmented diuresis with Lasix drip discussed with Dr. Peres at 12:52 p.m. Full consult to follow. Critical Care Time (minutes): 0
[2022-06-23 13:56] LABS: Lactic Acid 1.9 mmol/L (0.5-2.0)
[2022-06-23 14:09] LABS: Troponin-I High Sensitivity 13.9 ng/L (<3.5-35.0)
--- NOTE | 2022-06-23 14:16 | PHA.PROG ---
Admission Date/Time: June 19, 2022 12:24 Indication: RESPIRATORY Weight in k.7 kg Adjusted body weight in K.9 Lithia body weight in K.7 Obesity Dosing Indication % IBW: 32.1 Serum Creatinine - Last 168 Hours 06/19/22 06/19/22 06/20/22 06:30 12:42 06:35 Creatinine 5.79 H* 5.98 H* 5.58 H* 06/21/22 06/22/22 06/23/22 06:37 06:49 07:18 Creatinine 4.50 H* 4.32 H* 4.20 H* Estimated CrCl and GFR - Last 168 Hours 06/19/22 06/19/22 06/20/22 06:30 12:42 06:35 Estim Creat Clear Calc 16.4 15.8 17.1 Estimated GFR 10 10 11 06/21/22 06/22/22 06/23/22 06:37 06:49 07:18 Estim Creat Clear Calc 21.2 22.1 22.7 Estimated GFR 14 14 15 Vancomycin Loading Dose: 1750 Current Vancomycin Dosing Regimen: 500 Q24 Vancomycin Monitoring using AUC goal of 400 - 600 range with trough as surrogate marker: EXPECT AUC 548 AFTER DOSE #4. OBESE MODEL USED FOR DOSING. Date and Time for next Vancomycin Level to be drawn: 06/26/22 @1300 Pharmacist Comments on Vancomycin Plan: SCr IS VERY HIGH BUT TRENDING DOWN. PT HAS CKD. WILL CONTINUE TO MONITOR SCr DAILY . Vancomycin dosing will take advantage of [employer] as a clinical decision support tool that uses Bayesian modeling to calculate individual patient's pharmacokinetic parameters and forecast the patient's drug concentration time course with the target goal AUC 24 range of 400 - 600 mg/L/hr.
[2022-06-23] MEDS: vancomycin HCL 1,000 MG, vancomycin HCL 750 MG in 0.9 % Sodium Chloride 500 ML 267.5 MG IV (14:26)
[2022-06-23] MEDS: Furosemide 200 MG in 0.9 % Sodium Chloride 80 ML IVCONT (14:27)
[2022-06-23] MEDS: Albumin Human 25 % 100 ML IV ×2 (14:27→14:31)
--- NOTE | 2022-06-23 15:41 | P.CONCC_ITS ---
History of Present Illness Data of Consult Service Date: 06/23/22 Requesting physician: Erica Peres Primary Care Provider: Sarthak Spencer MD HPI Reason for consult: Hypoxia 56-year-old gentleman with underlying history of diabetes mellitus, chronic kidney disease stage 3 to 4, diastolic dysfunction, obesity, nonalcoholic steatohepatitis admitted on 06/19/2022 with nausea, vomiting, diarrhea, acute renal failure and treated with IV fluid resuscitation with hospital course significant for development of progressive hypoxia now requiring high-flow nasal cannula associated with orthopnea, lower extremity edema, rising brain natriuretic peptide level despite initial diuresis, also with hypoalbuminemia. Review of Systems Constitutional: Constitutional: Denies daytime sleepiness, Denies excessive sweating, Denies fatigue, Denies fever(s), Denies lethargy, Reports malaise, D enies night sweats, Denies snoring and Denies weight loss Eyes: Eyes: Denies blurry vision and Denies itchy eyes ENT: Denies nasal congestion, Denies post nasal drip, Denies sinus pain, Denies sinus pressure and Denies other ( Thrush) Cardiovascular: Cardiovascular: Denies chest pain, Reports pedal edema, Reports dyspnea, Reports dyspnea on exertion, Reports orthopnea and Denies paroxysmal nocturnal dyspnea Respiratory: Respiratory: Reports cough, Denies hemoptysis, Denies excessive phlegm production, Reports dyspnea, Reports dyspnea on exertion, Denies snoring and Denies wheezing Gastrointestinal: Gastrointestinal: Denies abdominal pain and Denies heartburn Musculoskeletal: Musculoskeletal: Denies myalgias, Denies arthralgias and Denies joint swelling Integumentary/Breasts: Skin/Breast: Denies rash Neurologic: Denies memory loss and Denies seizure-like activity Psychiatric: Psychiatric: Reports anxiety and Denies memory loss Endocrine: Endocrine: Denies excessive sweating, Denies fatigue and Denies heat intolerance Hematologic/Lymphatic: Hematologic/Lymphatic: Denies easy bruising Allergic/Immunologic: Allergic/Immunologic: Denies itchy eyes, Denies seasonal rhinorrhea and Denies wheezing PMFSH Past Medical History Medical History Acute hyponatremia Anxiety Chronic hyperglycemia CKD (chronic kidney disease) CKD (chronic kidney disease) CKD (chronic kidney disease) stage 3, GFR 30-59 ml/min CKD (chronic kidney disease) stage 4, GFR 15-29 ml/min Depression Diabetes Diabetes mellitus with coincident hypertension Diabetes type 2, uncontrolled Diabetic nephropathy associated with type 2 diabetes mellitus Diabetic neuropathy associated with type 2 diabetes mellitus Dyslipidemia Essential hypertension GERD (gastroesophageal reflux disease) Hepatitis High cholesterol Hypercalcemia Hyperlipidemia Hypertension 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 Surgical History Surgical History H/O colonoscopy History of esophagogastroduodenoscopy (EGD) Hx of arthroscopy of knee Hx of arthroscopy of right knee Social History Social History Household Members: Family Household Members Other:: SISTER Housing: Apartment Do you presently have visiting nurse or other home services: Yes Alcohol intake: never Patient Tobacco Use Status: Never used Tobacco e-Cigarette/Vaping Use: Never Used Second Hand Smoke Exposure: Yes (HISTORY OF SECOND HAND SMOKE EXPOSURE) Advance Directives Date on File: 05/05/20 service: No Current occupational status: disabled Current occupation: right handed Cognitive needs: No Hearing needs: No Vision needs: No Meds Allergies Allergy/AdvReac Type Severity Reaction Status Date / Time cephalexin [From KEFLEX] Allergy Mild ITCHY Verified 05/31/22 14:14 THROAT lisinopril [LISINOPRIL] Allergy Unknown SWELLING Verified 05/31/22 14:14 COUGH Active Medications: Current Medications Amlodipine Besylate (Amlodipine Besylate 5 Mg Tablet) 5 mg PO DAILY [facility]; Protocol Last Admin: 06/23/22 08:27 Dose: 5 mg Bupropion HCl (Bupropion Hcl Xl 150 Mg Tab.Er.24h) 150 mg PO DAILY [facility] Last Admin: 06/23/22 08:27 Dose: 150 mg Clonazepam (Clonazepam 0.5 Mg Tablet) 0.5 mg PO TID PRN PRN Reason: anxiety Last Admin: 06/20/22 22:45 Dose: 0.5 mg Famotidine (Famotidine 20 Mg Tablet) 20 mg PO BID [facility] Last Admin: 06/23/22 08:27 Dose: 20 mg Gabapentin (Gabapentin 300 Mg Capsule) 300 mg PO BEDTIME [facility] Last Admin: 06/22/22 21:07 Dose: 300 mg Glucose (Glucose Gel 15 Gm Gel..Gram.) 15 gm PO Q15M PRN; Protocol PRN Reason: per Hypoglycemia Standing Ord. Guaifenesin (Guaifenesin 200 Mg/10 Ml 10 Ml Liquid) 10 ml PO Q4H PRN PRN Reason: Cough Heparin Sodium (Porcine) (Heparin Sodium,Porcine 5,000 Unit/Ml Vial) 5,000 unit SUBCUT Q12H [facility] Last Admin: 06/23/22 12:34 Dose: 5,000 unit Hydralazine HCl (Hydralazine Hcl 25 Mg Tablet) 25 mg PO TID [facility]; Protocol Last Admin: 06/23/22 14:28 Dose: 25 mg Dextrose (D10) 250 mls @ 750 mls/hr IV Q15M PRN; Protocol PRN Reason: per Hypoglycemia Standing Ord. Azithromycin 500 mg/ Sodium (Chloride) 250 mls @ 125 mls/hr IV Q24H [facility] Last Infusion: 06/23/22 15:38 Dose: Infused Piperacillin Sod/Tazobactam (Sod 2.25 gm/ Sodium Chloride) 50 mls @ 100 mls/hr IV Q6H [facility] Last Admin: 06/23/22 14:27 Dose: 100 mls/hr Furosemide 200 mg/ Sodium (Chloride) 100 mls @ 5 mls/hr IVCONT .Q20H [facility] Last Admin: 06/23/22 14:27 Dose: 10 mg/hr, 5 mls/hr Vancomycin HCl 500 mg/ Sodium (Chloride) 110 mls @ 110 mls/hr IV Q24H [facility] Insulin Human Lispro (Insulin Lispro 100 Unit/Ml 3 Ml Vial) 0 unit SUBCUT QIDACHS [facility]; Protocol Last Admin: 06/23/22 12:33 Dose: 8 unit Labetalol HCl (Labetalol Hcl 100 Mg Tablet) 300 mg PO BID [facility] Last Admin: 06/23/22 08:26 Dose: 300 mg Meclizine HCl (Meclizine Hcl 25 Mg Tablet) 25 mg PO Q6H PRN PRN Reason: Dizziness Metoclopramide HCl (Metoclopramide Hcl 5 Mg Tablet) 5 mg PO QID [facility] Last Admin: 06/23/22 12:34 Dose: 5 mg Multivitamins/Vitamin C (Multivitamin Tablet) 1 tab PO DAILY [facility] Last Admin: 06/23/22 08:27 Dose: 1 tab Pharmacy Consult (Consult Rx Vancomycin Dosing) 1 each MISCELLANE DAILY PRN PRN Reason: Consult order Simethicone (Simethicone 80 Mg Tab.Chew) 160 mg PO TID [facility] Last Admin: 06/23/22 14:28 Dose: 160 mg Sodium Chloride (0.9 % Sodium Chloride Flush 3 Ml Syringe) 3 ml IVFLUSH QSHIFT [facility] Last Admin: 06/23/22 12:34 Dose: 3 ml Trazodone HCl (Trazodone Hcl 50 Mg Tablet) 150 mg PO BEDTIME [facility] Last Admin: 06/22/22 21:07 Dose: 150 mg Venlafaxine HCl (Venlafaxine Hcl Er 150 Mg Cap.Er.24h) 150 mg PO DAILY [facility] Last Admin: 06/23/22 08:27 Dose: 150 mg Vitamin D (Cholecalciferol (Vitamin D3) 25 Mcg Tablet) 50 mcg PO DAILY [facility] Last Admin: 06/23/22 08:27 Dose: 50 mcg Home Medications Medication Instructions Recorded Confirmed Last Taken Type venlafaxine 150 mg 150 mg PO DAILY 10/30/21 06/19/22 06/18/22 History capsule,extended release 24 hr multivitamin with folic acid 400 1 tab PO DAILY 03/06/22 06/19/22 06/18/22 Hi story mcg tablet (Tab-A-George) pen needle, diabetic 32 gauge x #50 ea 03/06/22 06/02/22 Unknown History 06/14 (Ultracare Pen Needle) bupropion HCl 150 mg 24 hr tablet, 150 mg PO DAILY 05/16/22 06/19/22 06/18/22 History extended release insulin aspart U-100 100 unit/mL 14 unit subcut TIDAC 05/16/22 06/19/22 06/18/22 History (3 mL) subcutaneous pen (Novolog FlexPen U-100 Insulin aspart) insulin glargine U-300 conc 300 70 unit subcut DAILY 05/16/22 06/19/22 06/18/22 History unit/mL (3 mL) subcutaneous pen (Toujeo Max U-300 SoloStar) meclizine 25 mg tablet 25 mg PO Q6H PRN Dizziness 05/16/22 06/19/22 06/18/22 History trazodone 150 mg tablet 150 mg PO BEDTIME 05/16/22 06/19/22 06/18/22 History Physical Exam Vital Signs: Vital Signs: Pulse 90s, blood pressure 170s over 80s, O2 saturation 92% on high-flow nasal cannula 40% 40 L Const: General: no acute distress and alert Nutritional Appearance: obese and Edematous (Mildly) Orientation/consciousness: Other orientation findings ( oriented) HEENT: Head: Yes atraumatic Eyes: General: appearance normal, both eyes and all related structures Sclerae: sclerae normal EOM: EOMs intact bilaterally Neck: Neck: Yes supple Lymphatic: no lymphadenopathy noted Resp: Effort & Inspection: normal respiratory effort and no use of accessory muscles Auscultation: crackles (Diffuse bilateral) Cardio: Rate: regular rate Rhythm: regular rhythm Heart sounds: no gallops, no murmurs and no rubs GI: Palpation (GI): Soft to palpation and Other GI palpation findings present ( nontender) Skin: General skin exam: other ( warm) Rashes: no rashes Extrem: General: No clubbing, No cyanosis and Yes edema (1+ bilateral) Results Labs 06/23/22 07:18 06/23/22 07:18 Labs: Short CBC 06/23/22 Range/Units 07:18 WBC 11.2 H (4.8-10.8) X10*3/uL Hgb 9.0 L D (14.0-18.0) g/dl Hct 26.3 L D (42.0-52.0) % Plt Count 193 (160-400) X10*3/uL BMP 06/23/22 07:18 Sodium 138 Potassium 4.0 Chloride 102 Carbon Dioxide 20 L BUN 84 H Creatinine 4.20 H* Calcium 9.0 Liver Function 06/23/22 Range/Units 07:18 Total Bilirubin 0.7 (0.0-1.0) mg/dL Direct Bilirubin 0.4 (0.0-0.5) mg/dL AST 27 (5-37) U/L ALT 39 (0-40) U/L Alkaline Phosphatase 322 H (39-117) U/L Albumin 3.1 L (3.5-5.0) g/dL Microbiology Microbiology Results: Microbiology 06/19/22 06:30 Blood - Venous Blood Culture - Preliminary No growth after 48 hours. 06/19/22 06:30 Blood - Venous Blood Culture - Preliminary No growth after 48 hours. Assessment and Plan (1) Acute respiratory failure with hypoxia: Status: Acute (2) (HFpEF) heart failure with preserved ejection fraction: Status: Acute (3) Pulmonary edema: Status: Acute (4) Acute on chronic kidney failure: Status: Acute Plan Impression: 56-year-old gentleman initially admitted with diarrhea now with acute hypoxic respiratory failure requiring high-flow nasal cannula support. Chest x-ray from 06/22 with diffuse vascular congestion consistent with pu lmonary edema. BNP is rising despite initial diuresis. Hypoalbumenic Orthopnea and lower extremity edema on exam. No overt pulmonary infection Recommendations: Diuresis with Lasix drip with albumin augmentation. Discussed with Dr. Peres Time Spent With Patient Time: Total time managing care of this patient today ____ minutes.
[2022-06-23 16:22] LABS: Glucose, Whole Blood 394 mg/dL (60-115)
--- NOTE | 2022-06-23 17:40 | PC.RT ---
Arrived to patient beside to assess peripheral access on patient with iv antibiotics and lasix ordered see mar. With only two medication compatible there was concern that one iv access was not sufficient. This delayed the start of the iv infusions. Contacted Dr. Seals @ 14:55 about concern of one IV access for patient. Dr. Seals suggest calling supervisor stone or ED if further iv access was not obtained. Two other nurses were asked to help iv access and successful taking over an hour to obtain peripheral iv's . Pt now has right front forearm and right back forearm placed at 15:55. Began iv fusions at 16:00 for patient. Frequent rounding on pt to maintain iv access and complete urine samples and nasal swabs ordered.
[2022-06-23 20:06] LABS: Glucose, Whole Blood 408 mg/dL (60-115)
[2022-06-23] MEDS: Gabapentin 100 MG CAPSULE PO (20:37)
[2022-06-23] MEDS: traZODone HCL 50 MG TABLET 150 MG PO (20:37)
[2022-06-23 21:54] LABS: Anion Gap 19 (12-20); Blood Urea Nitrogen 88 mg/dL (9-16); Calcium 9.3 mg/dL (8.4-10.2); Carbon Dioxide 19 mmol/L (22-29); Chloride 99 mmol/L (96-108); Creatinine Clr Calc Pharmacy 21.3; Estimated Glomerular Filt Rate 14; Glucose Random 440 mg/dL (60-115); Potassium 4.3 mmol/L (3.3-5.1); Sodium 133 mmol/L (135-145)
--- NOTE | 2022-06-23 22:26 | PC.NURSE ---
Addendum entered by Nayla Shore RN 06/23/22 22:27: 2150; Lab notified with critical glucose 440. labs were drawn prior to insulin administration. Nina made aware . no new orders at this time Original Note: 2021; poc 408, pt received 10 units humalog per sliding scale, Nina notified, order for additional 5 units lispro.
--- NOTE | 2022-06-23 23:23 | P.CONPL_ITS ---
History of Present Illness History of Present Illness Consult date: 06/23/22 Chief complaint: Diarrhea Pneumonia Dehydration Narrative: This is an in-patient pulmonary consultation. The patient is a 56-year-old male with history of insulin-dependent type 2 diabetes, CKD stage 3, HFpEF, and obesity?presented to the ED earlier this morning for evaluation of vomiting, diarrhea, and near syncopal episode.? He states yesterday morning has developed recurrent copious watery diarrhea with associated urgency and abdominal pressure.?He also reports a dry cough that started yesterday afternoon with associated shortness of breath and pleuritic chest pain. He and his son, Mt who is present at bedside, report he has also had decreased coordination of extremities and has fallen over last few weaks and he is reporting neck pain with neck/head often falling in forward flexion. No visual changes, sore throat, headaches, paresthesias, focal weakness. Denies any sick contacts or consumption of bad foods.? No recent travel.? The patient was recently admitted 3 times in the last 2 months for new onset CHF, LEDA, hyponatremia. Was treated with single doses of flagyl and levaquin, but did not receive full course of abx during admissions. On arrival, vital signs stable though low normal oximetry of 91%, placed on 4 L supplemental O2, weaned to 2 L maintaining oximetry 95%.? He has a leukocytosis of 18.7 with left shift.? Worsening renal function with creatinine 5.79, BUN 74.? Sodium 131, potassium 4.6, chloride 94, CO2 18, anion gap 24, glucose 209.? Initial lactic acid 2.6, repeat 3.2 improved to 2.5 following IV NS at 30 cc/kg.? Urinalysis unremarkable.? CXR showing mild hazy left basilar opacities which could be infectious or inflammatory, aspiration possible.? In the ED, treated with IVF and Zosyn. The patient has been getting worse, now on HF. His CXR with patchy airspace disease. I am concern that he is worsening quickly. Review of Systems Constitutional: Constitutional: Denies daytime sleepiness, Denies excessive sweating, Denies fatigue, Denies fever(s), Denies lethargy, Reports malaise, Denies night sweats, Denies snoring and Denies weight loss Eyes: Eyes: Denies blurry vision and Denies itchy eyes ENT: Denies nasal congestion, Denies post nasal drip, Denies sinus pain, Denies sinus pressure and Denies other ( Thrush) Cardiovascular: Cardiovascular: Denies chest pain, Reports pedal edema, Reports dyspnea, Reports dyspnea on exertion, Reports orthopnea and Denies paroxysmal nocturnal dyspnea Respiratory: Respiratory: Reports cough, Denies hemoptysis, Denies excessive phlegm production, Reports dyspnea, Reports dyspnea on exertion, Denies snoring and Denies wheezing Gastrointestinal: Gastrointestinal: Denies abdominal pain and Denies heartburn Musculoskeletal: Musculoskeletal: Denies myalgias, Denies arthralgias and Denies joint swelling Integumentary/Breasts: Skin/Breast: Denies rash Neurologic: Denies memory loss and Denies seizure-like activity Psychiatric: Psychiatric: Reports anxiety and Denies memory loss Endocrine: Endocrine: Denies excessive sweating, Denies fatigue and Denies heat intolerance Hematologic/Lymphatic: Hematologic/Lymphatic: Denies easy bruising Allergic/Immunologic: Allergic/Immunologic: Denies itchy eyes, Denies seasonal rhinorrhea and Denies wheezing PMFSH Past Medical History Medical History Acute hyponatremia Anxiety Chronic hyperglycemia CKD (chronic kidney disease) CKD (chronic kidney disease) CKD (chronic kidney disease) stage 3, GFR 30-59 ml/min CKD (chronic kidney disease) stage 4, GFR 15-29 ml/min Depression Diabetes Diabetes mellitus with coincident hypertension Diabetes type 2, uncontrolled Diabetic nephropathy associated with type 2 diabetes mellitus Diabetic neuropathy associated with type 2 diabetes mellitus Dyslipidemia Essential hypertension GERD (gastroesophageal reflux disease) Hepatitis High cholesterol Hypercalcemia Hyperlipidemia Hypertension 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 Surgical History Surgical History H/O colonoscopy History of esophagogastroduodenoscopy (EGD) Hx of arthroscopy of knee Hx of arthroscopy of right knee Social History Social History Household Members: Family Household Members Other:: SISTER Housing: Apartment Do you presently have visiting nurse or other home services: Yes Alcohol intake: never Patient Tobacco Use Status: Never used Tobacco e-Cigarette/Vaping Use: Never Used Second Hand Smoke Exposure: Yes (HISTORY OF SECOND HAND SMOKE EXPOSURE) Advance Directives Date on File: 05/05/20 service: No Current occupational status: disabled Current occupation: right handed Cognitive needs: No Hearing needs: No Vision needs: No Meds Allergies Allergy/AdvReac Type Severity Reaction Status Date / Time cephalexin [From KEFLEX] Allergy Mild ITCHY Verified 05/31/22 14:14 THROAT lisinopril [LISINOPRIL] Allergy Unknown SWELLING Verified 05/31/22 14:14 COUGH Active Medications: Current Medications Amlodipine Besylate (Amlodipine Besylate 5 Mg Tablet) 5 mg PO DAILY RADHA; Protoc ol Last Admin: 06/23/22 08:27 Dose: 5 mg Bupropion HCl (Bupropion Hcl Xl 150 Mg Tab.Er.24h) 150 mg PO DAILY RADHA Last Admin: 06/23/22 08:27 Dose: 150 mg Clonazepam (Clonazepam 0.5 Mg Tablet) 0.5 mg PO TID PRN PRN Reason: anxiety Last Admin: 06/20/22 22:45 Dose: 0.5 mg Famotidine (Famotidine 20 Mg Tablet) 20 mg PO BID RADHA Last Admin: 06/23/22 20:37 Dose: 20 mg Gabapentin (Gabapentin 100 Mg Capsule) 100 mg PO BEDTIME RADHA Last Admin: 06/23/22 20:37 Dose: 100 mg Glucose (Glucose Gel 15 Gm Gel..Gram.) 15 gm PO Q15M PRN; Protocol PRN Reason: per Hypoglycemia Standing Ord. Guaifenesin (Guaifenesin 200 Mg/10 Ml 10 Ml Liquid) 10 ml PO Q4H PRN PRN Reason: Cough Heparin Sodium (Porcine) (Heparin Sodium,Porcine 5,000 Unit/Ml Vial) 5,000 unit SUBCUT Q12H RADHA Last Admin: 06/23/22 12:34 Dose: 5,000 unit Hydralazine HCl (Hydralazine Hcl 25 Mg Tablet) 25 mg PO TID RADHA; Protocol Last Admin: 06/23/22 20:37 Dose: 25 mg Dextrose (D10) 250 mls @ 750 mls/hr IV Q15M PRN; Protocol PRN Reason: per Hypoglycemia Standing Ord. Azithromycin 500 mg/ Sodium (Chloride) 250 mls @ 125 mls/hr IV Q24H [facility] Last Infusion: 06/23/22 15:38 Dose: Infused Piperacillin Sod/Tazobactam (Sod 2.25 gm/ Sodium Chloride) 50 mls @ 100 mls/hr IV Q6H [facility] Last Infusion: 06/23/22 21:07 Dose: Infused Furosemide 200 mg/ Sodium (Chloride) 100 mls @ 5 mls/hr IVCONT .Q20H [facility] Last Admin: 06/23/22 14:27 Dose: 10 mg/hr, 5 mls/hr Vancomycin HCl 500 mg/ Sodium (Chloride) 110 mls @ 110 mls/hr IV Q24H [facility] Insulin Human Lispro (Insulin Lispro 100 Unit/Ml 3 Ml Vial) 0 unit SUBCUT QIDACHS [facility]; Protocol Last Admin: 06/23/22 20:36 Dose: 10 unit Labetalol HCl (Labetalol Hcl 100 Mg Tablet) 300 mg PO BID [facility] Last Admin: 06/23/22 20:37 Dose: 300 mg Meclizine HCl (Meclizine Hcl 25 Mg Tablet) 25 mg PO Q6H PRN PRN Reason: Dizziness Metoclopramide HCl (Metoclopramide Hcl 5 Mg Tablet) 5 mg PO QID [facility] Last Admin: 06/23/22 20:37 Dose: 5 mg Multivitamins/Vitamin C (Multivitamin Tablet) 1 tab PO DAILY [facility] Last Admin: 06/23/22 08:27 Dose: 1 tab Pharmacy Consult (Consult Rx Vancomycin Dosing) 1 each MISCELLANE DAILY PRN PRN Reason: Consult order Simethicone (Simethicone 80 Mg Tab.Chew) 160 mg PO TID [facility] Last Admin: 06/23/22 20:36 Dose: 160 mg Sodium Chloride (0.9 % Sodium Chloride Flush 3 Ml Syringe) 3 ml IVFLUSH QSHIFT [facility] Last Admin: 06/23/22 12:34 Dose: 3 ml Trazodone HCl (Trazodone Hcl 50 Mg Tablet) 150 mg PO BEDTIME [facility] Last Admin: 06/23/22 20:37 Dose: 150 mg Venlafaxine HCl (Venlafaxine Hcl Er 150 Mg Cap.Er.24h) 150 mg PO DAILY [facility] Last Admin: 03/25/23 08:27 Dose: 150 mg Vitamin D (Cholecalciferol (Vitamin D3) 25 Mcg Tablet) 50 mcg PO DAILY RADHA Last Admin: 06/23/22 08:27 Dose: 50 mcg Home Medications Medication Instructions Recorded Confirmed Last Taken Type venlafaxine 150 mg 150 mg PO DAILY 10/30/21 06/19/22 06/18/22 History capsule,extended release 24 hr multivitamin with folic acid 400 1 tab PO DAILY 03/06/22 06/19/22 06/18/22 History mcg tablet (Tab-A-George) pen needle, diabetic 32 gauge x #50 ea 03/06/22 06/02/22 Unknown History 06/14 (Ultracare Pen Needle) bupropion HCl 150 mg 24 hr tablet, 150 mg PO DAILY 05/16/22 06/19/22 06/18/22 History extended release insulin aspart U-100 100 unit/mL 14 unit subcut TIDAC 05/16/22 06/19/22 06/18/22 History (3 mL) subcutaneous pen (Novolog FlexPen U-100 Insulin aspart) insulin glargine U-300 conc 300 70 unit subcut DAILY 05/16/22 06/19/22 06/18/22 History unit/mL (3 mL) subcutaneous pen (Toujeo Max U-300 SoloStar) meclizine 25 mg tablet 25 mg PO Q6H PRN Dizziness 05/16/22 06/19/22 06/18/22 His tory trazodone 150 mg tablet 150 mg PO BEDTIME 05/16/22 06/19/22 06/18/22 History Physical Exam Vital Signs: Vital Signs: Last Vital Signs Temp 98.6 F 06/23/22 19:49 Pulse 98 06/23/22 19:49 Resp 19 06/23/22 19:55 BP 154/73 H 06/23/22 19:49 Pulse Ox 95 06/23/22 19:49 O2 Del Method High Flow Nasal C annula 06/23/22 19:49 O2 Flow Rate 40 06/23/22 19:49 FiO2 40 06/23/22 19:49 Oxygen Flow Rate 4 06/19/22 06:00 BMI result Body Mass Index 32.1 Const: General: no acute distress and alert Nutritional Appearance: obese and Edematous (Mildly) Orientation/consciousness: Other orientation findings ( oriented) HEENT: Head: Yes atraumatic Eyes: General: appearance normal, both eyes and all related structures Scle sahara: sclerae normal EOM: EOMs intact bilaterally Neck: Neck: Yes supple Lymphatic: no lymphadenopathy noted Resp: Effort & Inspection: normal respiratory effort and no use of accessory muscles Auscultation: crackles (Diffuse bilateral) Cardio: Rate: regular rate Rhythm: regular rhythm Heart sounds: no gallops, no murmurs and no rubs GI: Palpation (GI): Soft to palpation and Other GI palpation findings present ( nontender) Skin: General skin exam: other ( warm) Rashes: no rashes Extrem: General: No clubbing, No cyanosis and Yes edema (1+ bilateral) Results Laboratory Findings 06/23/22 07:18 06/23/22 20:15 ABG, PT/INR, D-dimer: PT/INR, D-dimer PT 12.4 SEC (10.0-13.1) 06/19/22 07:25 INR 1.1 (0.9-1.1) 06/19/22 07:25 Abnormal lab findings: Abnormal Labs 06/19/22 06/19/22 06/19/22 06:30 06:30 06:30 WBC 18.7 H RBC 4.09 L Hgb 12.2 L D Hct 35.1 L D Immature Gran % (Auto) 0.7 H Neut % (Auto) 91.1 H Lymph % (Auto) 3.2 L Lymph # (Auto) 0.6 L Abs Immat Gran (auto) 0.13 H Absolute Neuts (auto) 17.0 H ESR VBG HCO3 Sodium 131 L Chloride 94 L Carbon Dioxide 18 L Anion Gap 24 H BUN 74 H Creatinine 5.79 H* POC Glucose Random Glucose 209 H Lactic Acid 2.6 H* Lactic Acid F/U @ 2Hr Lactic Acid F/U @ 4Hr Calcium Alkaline Phosphatase 154 H Lactate Dehydrogenase B-Natriuretic Peptide Total Protein Albumin Urine Protein Ur Leukocyte Esterase Stl Norovirus GI/GII PCR 06/19/22 06/19/22 06/19/22 08:20 08:59 10:53 WBC RBC Hgb Hct Immature Gran % (Auto) Neut % (Auto) Lymph % (Auto) Lymph # (Auto) Abs Immat Gran (auto) Absolute Neuts (auto) ESR VBG HCO3 Sodium Chloride Carbon Dioxide Anion Gap BUN Creatinine POC Glucose Random Glucose Lactic Acid 3.2 H* Lactic Acid F/U @ 2Hr 2.5 H* Lactic Acid F/U @ 4Hr Calcium Alkaline Phosphatase Lactate Dehydrogenase B-Natriuretic Peptide Total Protein Albumin Urine Protein 300 (3+) H Ur Leukocyte Esterase Trace H Stl Norovirus GI/GII PCR 06/19/22 06/19/22 06/19/22 12:42 12:42 12:45 WBC RBC 3.87 L Hgb 11.5 L Hct 33.5 L Immature Gran % (Auto) Neut % (Auto) 89.0 H Lymph % (Auto) 4.4 L Lymph # (Auto) 0.3 L Abs Immat Gran (auto) Absolute Neuts (auto) ESR VBG HCO3 15 L Sodium 133 L Chloride Carbon Dioxide 15 L Anion Gap 22 H BUN 76 H Creatinine 5.98 H* POC Glucose Random Glucose 136 H Lactic Acid Lactic Acid F/U @ 2Hr Lactic Acid F/U @ 4Hr Calcium 8.3 L D Alkaline Phosphatase Lactate Dehydrogenase B-Natriuretic Peptide Total Protein Albumin Urine Protein Ur Leukocyte Esterase Stl Norovirus GI/GII PCR 06/19/22 06/19/22 06/19/22 13:31 16:41 18:52 WBC RBC Hgb Hct Immature Gran % (Auto) Neut % (Auto) Lymph % (Auto) Lymph # (Auto) Abs Immat Gran (auto) Absolute Neuts (auto) ESR VBG HCO3 Sodium Chloride Carbon Dioxide Anion Gap BUN Creatinine POC Glucose 167 H Random Glucose Lactic Acid Lactic Acid F/U @ 2Hr Lactic Acid F/U @ 4Hr 2.6 H* Calcium Alkaline Phosphatase Lactate Dehydrogenase B-Natriuretic Peptide Total Protein Albumin Urine Protein Ur Leukocyte Esterase Stl Norovirus GI/GII PCR Detected A 06/19/22 06/20/22 06/20/22 21:16 06:35 07:04 WBC RBC Hgb Hct Immature Gran % (Auto) Neut % (Auto) Lymph % (Auto) Lymph # (Auto) Abs Immat Gran (auto) Absolute Neuts (auto) ESR VBG HCO3 Sodium Chloride Carbon Dioxide 18 L Anion Gap BUN 85 H Creatinine 5.58 H* POC Glucose 143 H 150 H Random Glucose 144 H Lactic Acid Lactic Acid F/U @ 2Hr Lactic Acid F/U @ 4Hr Calcium 8.3 L Alkaline Phosphatase Lactate Dehydrogenase B-Natriuretic Peptide Total Protein Albumin Urine Protein Ur Leukocyte Esterase Stl Norovirus GI/GII PCR 06/20/22 06/20/22 06/20/22 11:34 16:01 19:29 WBC RBC Hgb Hct Immature Gran % (Auto) Neut % (Auto) Lymph % (Auto) Lymph # (Auto) Abs Immat Gran (auto) Absolute Neuts (auto) ESR VBG HCO3 Sodium Chloride Carbon Dioxide Anion Gap BUN Creatinine POC Glucose 182 H 195 H 160 H Random Glucose Lactic Acid Lactic Acid F/U @ 2Hr Lactic Acid F/U @ 4Hr Calcium Alkaline Phosphatase Lactate Dehydrogenase B-Natriuretic Peptide Total Protein Albumin Urine Protein Ur Leukocyte Esterase Stl Norovirus GI/GII PCR 06/21/22 06/21/22 06/21/22 06:37 07:17 11:54 WBC RBC Hgb Hct Immature Gran % (Auto) Neut % (Auto) Lymph % (Auto) Lymph # (Auto) Abs Immat Gran (auto) Absolute Neuts (auto) ESR VBG HCO3 Sodium Chloride Carbon Dioxide 19 L Anion Gap BUN 79 H Creatinine 4.50 H* POC Glucose 152 H 268 H Random Glucose 151 H Lactic Acid Lactic Acid F/U @ 2Hr Lactic Acid F/U @ 4Hr Calcium Alkaline Phosphatase Lactate Dehydrogenase B-Natriuretic Peptide Total Protein Albumin Urine Protein Ur Leukocyte Esterase Stl Norovirus GI/GII PCR 06/21/22 06/21/22 06/22/22 15:31 19:50 06:49 WBC RBC Hgb Hct Immature Gran % (Auto) Neut % (Auto) Lymph % (Auto) Lymph # (Auto) Abs Immat Gran (auto) Absolute Neuts (auto) ESR VBG HCO3 Sodium Chloride Carbon Dioxide 20 L Anion Gap BUN 81 H Creatinine 4.32 H* POC Glucose 313 H 216 H Random Glucose 175 H Lactic Acid Lactic Acid F/U @ 2Hr Lactic Acid F/U @ 4Hr Calcium Alkaline Phosphatase Lactate Dehydrogenase B-Natriuretic Peptide Total Protein Albumin Urine Protein Ur Leukocyte Esterase Stl Norovirus GI/GII PCR 06/22/22 06/22/22 06/22/22 06:49 07:33 10:54 WBC RBC Hgb Hct Immature Gran % (Auto) Neut % (Auto) Lymph % (Auto) Lymph # (Auto) Abs Immat Gran (auto) Absolute Neuts (auto) ESR VBG HCO3 Sodium Chloride Carbon Dioxide Anion Gap BUN Creatinine POC Glucose 181 H 284 H Random Glucose Lactic Acid Lactic Acid F/U @ 2Hr Lactic Acid F/U @ 4Hr Calcium Alkaline Phosphatase Lactate Dehydrogenase B-Natriuretic Peptide 129 H Total Protein Albumin Urine Protein Ur Leukocyte Esterase Stl Norovirus GI/GII PCR 06/22/22 06/22/22 06/23/22 15:35 19:49 07:18 WBC 11.2 H RBC 3.08 L D Hgb 9.0 L D Hct 26.3 L D Immature Gran % (Auto) Neut % (Auto) Lymph % (Auto) Lymph # (Auto) Abs Immat Gran (auto) Absolute Neuts (auto) ESR VBG HCO3 Sodium Chloride Carbon Dioxide Anion Gap BUN Creatinine POC Glucose 233 H 310 H Random Glucose Lactic Acid Lactic Acid F/U @ 2Hr Lactic Acid F/U @ 4Hr Calcium Alkaline Phosphatase Lactate Dehydrogenase B-Natriuretic Peptide Total Protein Albumin Urine Protein Ur Leukocyte Esterase Stl Norovirus GI/GII PCR 06/23/22 06/23/22 06/23/22 07:18 07:18 07:18 WBC RBC Hgb Hct Immature Gran % (Auto) Neut % (Auto) Lymph % (Auto) Lymph # (Auto) Abs Immat Gran (auto) Absolute Neuts (auto) ESR VBG HCO3 Sodium Chloride Carbon Dioxide 20 L Anion Gap BUN 84 H Creatinine 4.20 H* POC Glucose Random Glucose 226 H Lactic Acid Lactic Acid F/U @ 2Hr Lactic Acid F/U @ 4Hr Calcium Alkaline Phosphatase 322 H Lactate Dehydrogenase B-Natriuretic Peptide 383 H Total Protein 6.1 L Albumin 3.1 L Urine Protein Ur Leukocyte Esterase Stl Norovirus GI/GII PCR 06/23/22 06/23/22 06/23/22 07:27 11:15 12:10 WBC RBC Hgb Hct Immature Gran % (Auto) Neut % (Auto) Lymph % (Auto) Lymph # (Auto) Abs Immat Gran (auto) Absolute Neuts (auto) ESR 116 H VBG HCO3 Sodium Chloride Carbon Dioxide Anion Gap BUN Creatinine POC Glucose 207 H 319 H Random Glucose Lactic Acid Lactic Acid F/U @ 2Hr Lactic Acid F/U @ 4Hr Calcium Alkaline Phosphatase Lactate Dehydrogenase B-Natriuretic Peptide Total Protein Albumin Urine Protein Ur Leukocyte Esterase Stl Norovirus GI/GII PCR 06/23/22 06/23/22 06/23/22 12:10 16:03 19:45 WBC RBC Hgb Hct Immature Gran % (Auto) Neut % (Auto) Lymph % (Auto) Lymph # (Auto) Abs Immat Gran (auto) Absolute Neuts (auto) ESR VBG HCO3 Sodium Chloride Carbon Dioxide Anion Gap BUN Creatinine POC Glucose 394 H* 408 H* Random Glucose Lactic Acid Lactic Acid F/U @ 2Hr Lactic Acid F/U @ 4Hr Calcium Alkaline Phosphatase Lactate Dehydrogenase 278 H B-Natriuretic Peptide Total Protein Albumin Urine Protein Ur Leukocyte Esterase Stl Norovirus GI/GII PCR 06/23/22 20:15 WBC RBC Hgb Hct Immature Gran % (Auto) Neut % (Auto) Lymph % (Auto) Lymph # (Auto) Abs Immat Gran (auto) Absolute Neuts (auto) ESR VBG HCO3 Sodium 133 L Chloride Carbon Dioxide 19 L Anion Gap BUN 88 H Creatinine 4.47 H* POC Glucose Random Glucose 440 H* Lactic Acid Lactic Acid F/U @ 2Hr Lactic Acid F/U @ 4Hr Calcium Alkaline Phosphatase Lactate Dehydrogenase B-Natriuretic Peptide Total Protein Albumin Urine Protein Ur Leukocyte Esterase Stl Norovirus GI/GII PCR Microbiology: Microbiology 06/19/22 06:30 Blood - Venous Blood Culture - Preliminary No growth after 48 hours. 06/19/22 06:30 Blood - Venous Blood Culture - Preliminary No growth after 48 hours. Assessment and Plan (1) Acute respiratory failure with hypoxia: Status: Acute (2) Pulmonary edema: Status: Acute (3) Pneumonia: Qualifiers: Laterality: left Lung location: lower lobe of lung Pneumonia type: due to unspecified organism Qualified Code(s): J18.9 - Pneumonia, unspecified organism Status: Acute (4) Acute on chronic kidney failure: Status: Acute Plan Bloodwork, respiratory panel Broaden abx coverage ?pulmonary-renal syndrome low dose steroids Diuresis as tolerated continue HF Guarded condition Time Spent With Patient Time: Total time managing care of this patient today ____ minutes. Procedures Date of Service Date of Service: 06/23/22
[2022-06-24] VITALS (12 sets, daily range): BP systolic 154–202; BP diastolic 76–102; PULSE 74–90; RESP 18–20; TEMP 36–37; O2SAT 88–96
[2022-06-24] MEDS: hydrALAZINE HCl 20 MG/ML VIAL 5 MG IVPUSH (00:03)
[2022-06-24] MEDS: Furosemide 200 MG in 0.9 % Sodium Chloride 80 ML IVCONT (00:03)
[2022-06-24] MEDS: Piperacillin Sodium/Tazobactam 2.25 GM in 0.9 % Sodium Chloride 50 ML IV ×4 (02:37→20:58)
[2022-06-24] MEDS: Labetalol HCL 100 MG/20 ML VIAL 10 MG IVPUSH (02:37)
--- NOTE | 2022-06-24 04:46 | PC.NURSE ---
CARE ASSUMED 23:15....AWAKE...ALERT..ORIENTED X3...HI-LYN CANNULA WEANED FROM 50% TO 40% O2 AND FLOW FROM 40 TO 35 L/M BY RT...SAO2 REMAINS 85%...RESPIRATIONS EASY AT REST..DEL CASTILLO...FINE CRACKLES LOWER [place]IN...LASIX DRIP 10 MG/HR...TRIPP DRAINING LARGE AMOUNTS URINE...NSR..NO ECTOPY...BP ELEVATED ...204/95...HYDRALAZINE 5MG IV X1 PER DR DIANA...BP REMAINED 202/102...LABETOLOL 10MG IV X1 PER ...BP 188/82...REMAINED ASYMPTOMATIC..NO FURTHER RX PER ...FOR AM PO NORVASC/LABETOLOL/HYDRALIZENE ORDERED..RESTFUL..NAPPING W/O DIFFICULTY
--- NOTE | 2022-06-24 07:56 | PC.NURSE ---
Addendum entered by Daria Jaramillo RN 06/24/22 08:18: Dr Villalpando contacted me via tiger text and stated pt will be receiving long acting insulin, see mar.. Patient received long acting insulin in addition to short acting insulin during morning medication pass. Original Note: at 7:[address] Fisher via Quidertext about patient sugar at 0737 being 420.
[2022-06-24] MEDS: Insulin Lispro 100 UNIT/ML 3 ML VIAL SUBCUT ×4 (07:58→21:39)
[2022-06-24] MEDS: Insulin Glargine,Hum.rec.anlog 100 UNIT/ML 10 ML VIAL 15 UNIT SUBCUT (07:59)
[2022-06-24] MEDS: Labetalol HCL 100 MG TABLET 300 MG PO ×2 (08:03→20:58)
[2022-06-24] MEDS: Cholecalciferol (Vitamin D3) 25 MCG TABLET 50 MCG PO (08:03)
[2022-06-24] MEDS: Venlafaxine HCl ER 150 MG CAP.ER.24H PO (08:04)
[2022-06-24] MEDS: Famotidine 20 MG TABLET PO ×2 (08:04→20:58)
[2022-06-24] MEDS: Metoclopramide HCl 5 MG TABLET PO ×4 (08:04→20:58)
[2022-06-24] MEDS: Simethicone 80 MG TAB.CHEW 160 MG PO ×3 (08:04→20:57)
[2022-06-24] MEDS: hydrALAZINE HCl 25 MG TABLET PO (08:04)
[2022-06-24] MEDS: amLODIPine Besylate 5 MG TABLET PO (08:05)
[2022-06-24] MEDS: 0.9 % Sodium Chloride Flush 3 ML SYRINGE IVFLUSH (08:05)
[2022-06-24] MEDS: Multivitamin TABLET 1 TAB PO (08:05)
[2022-06-24] MEDS: buPROPion HCl XL 150 MG TAB.ER.24H PO (08:05)
[2022-06-24 08:10] LABS: Glucose, Whole Blood 420 mg/dL (60-115)
[2022-06-24] MEDS: amLODIPine Besylate 10 MG TABLET PO (08:24)
[2022-06-24] MEDS: hydrALAZINE HCl 50 MG TABLET PO ×3 (08:24→20:58)
[2022-06-24 08:25] LABS: Hemoglobin 9.7 g/dl (14.0-18.0); Mean Corpuscular HGB Conc 34.6 g/dl (31.0-36.0); Mean Corpuscular Hemoglobin 29.3 pg (27.0-33.0); Mean Corpuscular Volume 84.6 fL (80.0-98.0); Mean Platelet Volume 10.5 fL (9.4-12.4); Platelet Count 221 X10*3/uL (160-400); Red Blood Count 3.31 X10*6/uL (4.60-5.80); Red Cell Distribution Width 12.2 % (11.0-16.0)
--- NOTE | 2022-06-24 08:28 | P.PNNP_ITS ---
Subjective Subjective Date of Service: 06/24/22 Interval history: seen and examined no complaints on high flow Physical Exam Vital Signs: Vital Signs: Last Vital Signs Temp 96.8 F 06/24/22 07:29 Pulse 78 06/24/22 07:29 Resp 20 06/24/22 08:04 BP 174/96 H 06/24/22 07:29 Pulse Ox 95 06/24/22 07:29 O2 Del Method High Flow Nasal C annula 06/24/22 07:29 O2 Flow Rate 45 06/24/22 07:29 FiO2 42 06/24/22 07:29 Oxygen Flow Rate 4 06/19/22 06:00 BMI result Body Mass Index 32.1 Const: General: no acute distress HEENT: Head: Yes normocephalic and Yes atraumatic Resp: Auscultation: diminished lung sounds Cardio: Heart sounds: S1 normal heart sound present and S2 normal heart sound present GI: Palpation (GI): Soft to palpation Extrem: General: Yes edema Objective Data Labs 06/24/22 08:13 06/23/22 20:15 Labs: Laboratory Results - last 24 hr 06/23/22 06/23/22 06/23/22 11:15 12:10 12:10 WBC RBC Hgb Hct MCV MCH MCHC RDW Plt Count MPV Absolute Nucleated RBC Nucleated RBC % (auto) ESR 116 H Sodium Potassium Chloride Carbon Dioxide Anion Gap BUN Creatinine Estim Creat Clear Calc Estimated GFR POC Glucose 319 H Random Glucose Lactic Acid Calcium Lactate Dehydrogenase 278 H Troponin I High Sens 06/23/22 06/23/22 06/23/22 13:25 13:25 16:03 WBC RBC Hgb Hct MCV MCH MCHC RDW Plt Count MPV Absolute Nucleated RBC Nucleated RBC % (auto) ESR Sodium Potassium Chloride Carbon Dioxide Anion Gap BUN Creatinine Estim Creat Clear Calc Estimated GFR POC Glucose 394 H* Random Glucose Lactic Acid 1.9 Calcium Lactate Dehydrogenase Troponin I High Sens 13.9 D 06/23/22 06/23/22 06/24/22 19:45 20:15 07:44 WBC RBC Hgb Hct MCV MCH MCHC RDW Plt Count MPV Absolute Nucleated RBC Nucleated RBC % (auto) ESR Sodium 133 L Potassium 4.3 Chloride 99 Carbon Dioxide 19 L Anion Gap 19 BUN 88 H Creatinine 4.47 H* Estim Creat Clear Calc 21.3 Estimated GFR 14 POC Glucose 408 H* 420 H* Random Glucose 440 H* Lactic Acid Calcium 9.3 Lactate Dehydrogenase Troponin I High Sens 06/24/22 08:13 WBC 12.0 H RBC 3.31 L Hgb 9.7 L Hct 28.0 L MCV 84.6 MCH 29.3 MCHC 34.6 RDW 12.2 Plt Count 221 MPV 10.5 Absolute Nucleated RBC 0.000 Nucleated RBC % (auto) 0.0 ESR Sodium Potassium Chloride Carbon Dioxide Anion Gap BUN Creatinine Estim Creat Clear Calc Estimated GFR POC Glucose Random Glucose Lactic Acid Calcium Lactate Dehydrogenase Troponin I High Sens Microbiology Microbiology Results: Microbiology 06/19/22 06:30 Blood - Venous Blood Culture - Preliminary No growth after 48 hours. 06/19/22 06:30 Blood - Venous Blood Culture - Preliminary No growth after 48 hours. Procedures Date of Service Date of Service: 06/24/22 Assessment & Plan Assessment and plan (1) LEDA (acute kidney injury): Status: Resolved (2) (HFpEF) heart failure with preserved ejection fraction: Status: Acute (3) CKD (chronic kidney disease) stage 4, GFR 15-29 ml/min: Status: Inactive Plan LEDA due to compromised kidney perfusion known severe CKD due to DM/HTN baseline Scr 2.5-3 mg/dl followed by Dr Stevenson cardiogenic versus non cardiogenic pulmonary edema ARDS like picture volume status no suggestive of volume overload REC discontinue furosemide gtt no indication for [employer] follow kidney function and electrolytes Time Spent With Patient Time: Total time managing care of this patient today ____ minutes. Progress Note: Quality Stroke Does the patient have a stroke diagnosis?: No
[2022-06-24 08:46] LABS: B Type Natriuretic Peptide 1196 pg/mL (<100)
[2022-06-24 08:53] LABS: Anion Gap 21 (12-20); Blood Urea Nitrogen 93 mg/dL (9-16); Calcium 9.7 mg/dL (8.4-10.2); Carbon Dioxide 19 mmol/L (22-29); Chloride 97 mmol/L (96-108); Creatinine Clr Calc Pharmacy 21.2; Estimated Glomerular Filt Rate 14; Glucose Random 484 mg/dL (60-115); Sodium 133 mmol/L (135-145)
[2022-06-24 09:27] LABS: Adenovirus PCR Not Detected (Not Detect.); Bordetella parapertussis PCR Not Detected (Not Detect.); Bordetella pertussis PCR Not Detected (Not Detect.); Chlamydia pneumoniae PCR Not Detected (Not Detect.); Coronavirus 229E PCR Not Detected (Not Detect.); Coronavirus HKU1 PCR Not Detected (Not Detect.); Coronavirus NL63 PCR Not Detected (Not Detect.); Coronavirus OC43 PCR Not Detected (Not Detect.); Human metapneumovirus PCR Not Detected (Not Detect.); Influenza A PCR Not Detected (Not Detect.); Influenza B PCR Not Detected (Not Detect.); Mycoplasma pneumoniae PCR Not Detected (Not Detect.); Parainfluenza 1 PCR Not Detected (Not Detect.); Parainfluenza 2 PCR Not Detected (Not Detect.); Parainfluenza 3 PCR Not Detected (Not Detect.); Parainfluenza 4 PCR Not Detected (Not Detect.); Rhino/Enterovirus PCR Not Detected (Not Detect.); SARS-CoV-2 PCR Not Detected (Not Detect.)
[2022-06-24 09:28] LABS: RSV PCR Not Detected (Not Detect.)
[2022-06-24 10:51] LABS: Glucose, Whole Blood 485 mg/dL (60-115)
--- NOTE | 2022-06-24 11:28 | PM.PNPUL ---
Subjective Subjective Date of Service: 06/24/22 Interval history: The patient was seen on exam. He was given 1 dose of Solu-Medrol. In addition to that he is on a Lasix drip. He is doing about the same. Chest x-ray demonstrating some may be interval worsening of the airspace disease. Again the distribution of the patchy hazy opacities are typical of pulmonary edema. In this case cardiogenic versus noncardiogenic pulmonary edema. His blood work does demonstrate a significantly elevated sedimentation rate of 116. Therefore pulmonary renal syndrome due to be consider. He was able to expectorate phlegm in the visit. It appeared to be morton in color and did have some consistency. No evidence of any hemoptysis. Will plan to give him another course of Solu-Medrol today. In addition to that if patient is able to travel should get a CT scan of the chest. Objective Data Labs 06/24/22 08:13 06/24/22 08:13 Labs: Laboratory Results - last 24 hr 06/23/22 06/23/22 06/23/22 11:15 12:10 12:10 WBC RBC Hgb Hct MCV MCH MCHC RDW Plt Count MPV Absolute Nucleated RBC Nucleated RBC % (auto) ESR 116 H Sodium Potassium Chloride Carbon Dioxide Anion Gap BUN Creatinine Estim Creat Clear Calc Estimated GFR POC Glucose 319 H Random Glucose Lactic Acid Calcium Lactate Dehydrogenase 278 H Troponin I High Sens B-Natriuretic Peptide Respiratory Panel Wilson Adenovirus (Rapid PCR) B.pert (TEM-PCR) B.parapertussis DNA PCR C. pneumoniae DNA (PCR) Coronavirus OC43 (PCR) Coronavirus HKU1 (PCR) Coronavirus 229E (PCR) Coronavirus NL63 (PCR) Human Metapneumovir PCR Influenza A (RT-PCR) Influenza B (RT-PCR) M. pneumoniae (PCR) Parainfluenza 1 (PCR) Parainfluenza 2 (PCR) Parainfluenza 3 (PCR) Parainfluenza 4 (PCR) RSV (PCR) Entero/Rhino (PCR) SARS-CoV-2 RNA (RT-PCR) 06/23/22 06/23/22 06/23/22 13:25 13:25 16:03 WBC RBC Hgb Hct MCV MCH MCHC RDW Plt Count MPV Absolute Nucleated RBC Nucleated RBC % (auto) ESR Sodium Potassium Chloride Carbon Dioxide Anion Gap BUN Creatinine Estim Creat Clear Calc Estimated GFR POC Glucose 394 H* Random Glucose Lactic Acid 1.9 Calcium Lactate Dehydrogenase Troponin I High Sens 13.9 D B-Natriuretic Peptide Respiratory Panel Wilson Adenovirus (Rapid PCR) B.pert (TEM-PCR) B.parapertussis DNA PCR C. pneumoniae DNA (PCR) Coronavirus OC43 (PCR) Coronavirus HKU1 (PCR) Coronavirus 229E (PCR) Coronavirus NL63 (PCR) Human Metapneumovir PCR Influenza A (RT-PCR) Influenza B (RT-PCR) M. pneumoniae (PCR) Parainfluenza 1 (PCR) Parainfluenza 2 (PCR) Parainfluenza 3 (PCR) Parainfluenza 4 (PCR) RSV (PCR) Entero/Rhino (PCR) SARS-CoV-2 RNA (RT-PCR) 06/23/22 06/23/22 06/23/22 17:53 19:45 20:15 WBC RBC Hgb Hct MCV MCH MCHC RDW Plt Count MPV Absolute Nucleated RBC Nucleated RBC % (auto) ESR Sodium 133 L Potassium 4.3 Chloride 99 Carbon Dioxide 19 L Anion Gap 19 BUN 88 H Creatinine 4.47 H* Estim Creat Clear Calc 21.3 Estimated GFR 14 POC Glucose 408 H* Random Glucose 440 H* Lactic Acid Calcium 9.3 Lactate Dehydrogenase Troponin I High Sens B-Natriuretic Peptide Respiratory Panel Wilson See Note Adenovirus (Rapid PCR) Not Detected B.pert (TEM-PCR) Not Detected B.parapertussis DNA PCR Not Detected C. pneumoniae DNA (PCR) Not Detected Coronavirus OC43 (PCR) Not Detected Coronavirus HKU1 (PCR) Not Detected Coronavirus 229E (PCR) Not Detected Coronavirus NL63 (PCR) Not Detected Human Metapneumovir PCR Not Detected Influenza A (RT-PCR) Not Detected Influenza B (RT-PCR) Not Detected M. pneumoniae (PCR) Not Detected Parainfluenza 1 (PCR) Not Detected Parainfluenza 2 (PCR) Not Detected Parainfluenza 3 (PCR) Not Detected Parainfluenza 4 (PCR) Not Detected RSV (PCR) Not Detected Entero/Rhino (PCR) Not Detected SARS-CoV-2 RNA (RT-PCR) Not Detected 06/24/22 06/24/22 06/24/22 07:44 08:13 08:13 WBC 12.0 H RBC 3.31 L Hgb 9.7 L Hct 28.0 L MCV 84.6 MCH 29.3 MCHC 34.6 RDW 12.2 Plt Count 221 MPV 10.5 Absolute Nucleated RBC 0.000 Nucleated RBC % (auto) 0.0 ESR Sodium 133 L Potassium 4.0 Chloride 97 Carbon Dioxide 19 L Anion Gap 21 H BUN 93 H Creatinine 4.50 H* Estim Creat Clear Calc 21.2 Estimated GFR 14 POC Glucose 420 H* Random Glucose 484 H* Lactic Acid Calcium 9.7 Lactate Dehydrogenase Troponin I High Sens B-Natriuretic Peptide Respiratory Panel Wilson Adenovirus (Rapid PCR) B.pert (TEM-PCR) B.parapertussis DNA PCR C. pneumoniae DNA (PCR) Coronavirus OC43 (PCR) Coronavirus HKU1 (PCR) Coronavirus 229E (PCR) Coronavirus NL63 (PCR) Human Metapneumovir PCR Influenza A (RT-PCR) Influenza B (RT-PCR) M. pneumoniae (PCR) Parainfluenza 1 (PCR) Parainfluenza 2 (PCR) Parainfluenza 3 (PCR) Parainfluenza 4 (PCR) RSV (PCR) Entero/Rhino (PCR) SARS-CoV-2 RNA (RT-PCR) 06/24/22 06/24/22 06/24/22 08:13 08:13 10:43 WBC RBC Hgb Hct MCV MCH MCHC RDW Plt Count MPV Absolute Nucleated RBC Nucleated RBC % (auto) ESR Sodium Potassium Chloride Carbon Dioxide Anion Gap BUN Creatinine Cancelled Estim Creat Clear Calc Cancelled Estimated GFR Cancelled POC Glucose 485 H* Random Glucose Lactic Acid Calcium Lactate Dehydrogenase Troponin I High Sens B-Natriuretic Peptide 1196 H Respiratory Panel Wilson Adenovirus (Rapid PCR) B.pert (TEM-PCR) B.parapertussis DNA PCR C. pneumoniae DNA (PCR) Coronavirus OC43 (PCR) Coronavirus HKU1 (PCR) Coronavirus 229E (PCR) Coronavirus NL63 (PCR) Human Metapneumovir PCR Influenza A (RT-PCR) Influenza B (RT-PCR) M. pneumoniae (PCR) Parainfluenza 1 (PCR) Parainfluenza 2 (PCR) Parainfluenza 3 (PCR) Parainfluenza 4 (PCR) RSV (PCR) Entero/Rhino (PCR) SARS-CoV-2 RNA (RT-PCR) Microbiology Microbiology Results: Microbiology 06/19/22 06:30 Blood - Venous Blood Culture - Final No growth after 5 days. 06/19/22 06:30 Blood - Venous Blood Culture - Final No growth after 5 days. Review of Systems Constitutional: Denies daytime sleepiness, Denies excessive sweating, Denies fatigue, Denies fever(s), Denies lethargy, Reports malaise, Denies night sweats, Denies snoring and Denies weight loss Eyes: Denies blurry vision and Denies itchy eyes Denies nasal congestion, Denies post nasal drip, Denies sinus pain, Denies sinus pressure and Denies other ( Thrush) Cardiovascular: Denies chest pain, Reports pedal edema, Reports dyspnea, Reports dyspnea on exertion, Reports orthopnea and Denies paroxysmal nocturnal dyspnea Respiratory: Reports change in phlegm color, Reports chest congestion, Reports cough, Denies hemoptysis, Denies excessive phlegm production, Reports dyspnea, Reports dyspnea on exertion, Denies snoring and Denies wheezing Gastrointestinal: Denies abdominal pain and Denies heartburn Musculoskeletal: Denies myalgias, Denies arthralgias and Denies joint swelling Skin/Breast: Denies rash Denies memory loss and Denies seizure-like activity Psychiatric: Reports anxiety and Denies memory loss Endocrine: Denies excessive sweating, Denies fatigue and Denies heat intolerance Hematologic/Lymphatic: Denies easy bruising Allergic/Immunologic: Denies itchy eyes, Denies seasonal rhinorrhea and Denies wheezing Physical Exam Vital Signs: Vital Signs: Last Vital Signs Temp 96.8 F 06/24/22 07:29 Pulse 78 06/24/22 07:29 Resp 20 06/24/22 08:04 BP 174/96 H 06/24/22 07:29 Pulse Ox 95 06/24/22 07:29 O2 Del Method High Flow Nasal C annula 06/24/22 07:29 O2 Flow Rate 45 06/24/22 07:29 FiO2 42 06/24/22 07:29 Oxygen Flow Rate 4 06/19/22 06:00 BMI result Body Mass Index 32.1 Const: General: no acute distress and alert Nutritional Appearance: obese and Edematous (Mildly) Orientation/consciousness: Other orientation findings ( oriented) HEENT: Head: Yes atraumatic Eyes: General: appearance normal, both eyes and all related structures Sclerae: sclerae normal EOM: EOMs intact bilaterally Neck: Neck: Yes supple Lymphatic: no lymphadenopathy noted Resp: Effort & Inspection: normal respiratory effort and no use of accessory muscles Auscultation: crackles (Diffuse bilateral) Cardio: Rate: regular rate Rhythm: regular rhythm Heart sounds: no gallops, no murmurs and no rubs GI: Palpation (GI): Soft to palpation and Other GI palpation findings present ( nontender) Skin: General skin exam: other ( warm) Rashes: no rashes Extrem: General: No clubbing, No cyanosis and Yes edema (1+ bilateral) Procedures Date of Service Date of Service: 06/24/22 Assessment and Plan Assessment and plan (1) Pulmonary edema: Problem details: The patient has likely non cardiogenic pulmonary edema, ARDS. Pulmonary renal syndromes are in differential. Could also have been manifested by his viral syndrome. Currently on a Lasix drip to maintain his volume status on the negative side as long as his kidney function can tolerated Status: Acute (2) Acute respiratory failure with hypoxia: Status: Acute (3) Pneumonia: Status: Acute Plan Continue high-flow Sputum culture CPT with flutter valve Continue antibiotic coverage Solu-Medrol IV x1 now Continue diuresis as tolerated Awaiting blood work Is request CT scan of the chest noncontrast once the patient is able to travel safely Time Spent With Patient Time: Total time managing care of this patient today ____ minutes. Progress Note: Quality Stroke Does the patient have a stroke diagnosis?: No
[2022-06-24] MEDS: Heparin Sodium,Porcine 5,000 UNIT/ML VIAL 5000 UNIT SUBCUT (12:14)
[2022-06-24] MEDS: Insulin Lispro 100 UNIT/ML 3 ML VIAL 10 UNIT SUBCUT ×3 (12:15→21:39)
[2022-06-24] MEDS: Insulin Glargine,Hum.rec.anlog 100 UNIT/ML 10 ML VIAL 10 UNIT SUBCUT (12:16)
[2022-06-24] MEDS: methylPREDNISolone Sod Succ 40 MG/ML VIAL IVPUSH (12:17)
[2022-06-24] MEDS: Azithromycin 500 MG in 0.9 % Sodium Chloride 250 ML 125 MG IV (12:17)
--- NOTE | 2022-06-24 13:10 | P.PNIM_ITS ---
Subjective Subjective Date of Service: 06/24/22 Interval History: Seen and evaluated this morning feels better overall but weak still on High flow by RT, weaning him down as tolerated diarrhea resolved DC lasix drip per nephrology call Review of Systems Review of Systems: Yes all other systems are reviewed and are negative Physical Exam Vital Signs: Vital Signs: Last Vital Signs Temp 96.8 F 06/24/22 07:29 Pulse 78 06/24/22 07:29 Resp 20 06/24/22 12:04 BP 174/96 H 06/24/22 07:29 Pulse Ox 95 06/24/22 07:29 O2 Del Method High Flow Nasal C annula 06/24/22 07:29 O2 Flow Rate 45 06/24/22 07:29 FiO2 42 06/24/22 07:29 Oxygen Flow Rate 4 06/19/22 06:00 BMI result Body Mass Index 32.1 Const: Other: Constitutional : Awake, interactive, in mild resp distress Neck : Normal inspection, Supple Cardiovascular : RRR, JVP, trace lower extremity edema Respiratory : good bilateral air entry, basal bilateral crackles, no wheezes or rhonchi, on high flow oxygen Gastrointestinal: soft, lax, Normal bowel sounds, Non tender Skin : Warm, Dry Neurological : Alert & oriented x3, No focal deficit Objective Data Active Medications Amlodipine Besylate (Amlodipine Besylate 10 Mg Tablet) 10 mg PO DAILY [facility]; Protocol Last Admin: 06/24/22 08:24 Dose: 10 mg Documented By: JULIO Bupropion HCl (Bupropion Hcl Xl 150 Mg Tab.Er.24h) 150 mg PO DAILY [facility] Last Admin: 06/24/22 08:05 Dose: 150 mg Documented By: JULIO Clonazepam (Clonazepam 0.5 Mg Tablet) 0.5 mg PO TID PRN PRN Reason: anxiety Last Admin: 06/20/22 22:45 Dose: 0.5 mg Documented By: SAHIL Famotidine (Famotidine 20 Mg Tablet) 20 mg PO BID [facility] Last Admin: 06/24/22 08:04 Dose: 20 mg Documented By: JULIO Gabapentin (Gabapentin 100 Mg Capsule) 100 mg PO BEDTIME [facility] Last Admin: 06/23/22 20:37 Dose: 100 mg Documented By: DONALDO Glucose (Glucose Gel 15 Gm Gel..Gram.) 15 gm PO Q15M PRN; Protocol PRN Reason: per Hypoglycemia Standing Ord. Guaifenesin (Guaifenesin 200 Mg/10 Ml 10 Ml Liquid) 10 ml PO Q4H PRN PRN Reason: Cough Heparin Sodium (Porcine) (Heparin Sodium,Porcine 5,000 Unit/Ml Vial) 5,000 unit SUBCUT Q12H [facility] Last Admin: 06/24/22 12:14 Dose: 5,000 unit Documented By: JULIO Hydralazine HCl (Hydralazine Hcl 50 Mg Tablet) 50 mg PO TID [facility]; Protocol Last Admin: 06/24/22 08:24 Dose: 50 mg Documented By: JULIO Dextrose (D10) 250 mls @ 750 mls/hr IV Q15M PRN; Protocol PRN Reason: per Hypoglycemia Standing Ord. Azithromycin 500 mg/ Sodium (Chloride) 250 mls @ 125 mls/hr IV Q24H [facility] Last Admin: 06/24/22 12:17 Dose: 125 mls/hr Documented By: JULIO Piperacillin Sod/Tazobactam (Sod 2.25 gm/ Sodium Chloride) 50 mls @ 100 mls/hr IV Q6H [facility] Last Infusion: 06/24/22 08:42 Dose: 0 mls/hr Documented By: JULIO Vancomycin HCl 500 mg/ Sodium (Chloride) 110 mls @ 110 mls/hr IV Q24H [facility] Insulin Glargine (Insulin Glargine,Hum.Rec.Anlog 100 Unit/Ml 10 Ml Vial) 30 unit SUBCUT DAILY [facility] Insulin Human Lispro (Insulin Lispro 100 Unit/Ml 3 Ml Vial) 0 unit SUBCUT QIDACHS [facility]; Protocol Last Admin: 06/24/22 12:15 Dose: 10 unit Documented By: JULIO Labetalol HCl (Labetalol Hcl 100 Mg Tablet) 300 mg PO BID [facility] Last Admin: 06/24/22 08:03 Dose: 300 mg Documented By: JULIO Meclizine HCl (Meclizine Hcl 25 Mg Tablet) 25 mg PO Q6H PRN PRN Reason: Dizziness Metoclopramide HCl (Metoclopramide Hcl 5 Mg Tablet) 5 mg PO QID [facility] Last Admin: 06/24/22 12:14 Dose: 5 mg Documented By: JULIO Multivitamins/Vitamin C (Multivitamin Tablet) 1 tab PO DAILY [facility] Last Admin: 06/24/22 08:05 Dose: 1 tab Documented By: JULIO Pharmacy Consult (Consult Rx Vancomycin Dosing) 1 each MISCELLANE DAILY PRN PRN Reason: Consult order Simethicone (Simethicone 80 Mg Tab.Chew) 160 mg PO TID [facility] Last Admin: 06/24/22 08:04 Dose: 160 mg Documented By: JULIO Sodium Chloride (0.9 % Sodium Chloride Flush 3 Ml Syringe) 3 ml IVFLUSH QSHIFT [facility] Last Admin: 06/24/22 08:05 Dose: 3 ml Documented By: JULIO Trazodone HCl (Trazodone Hcl 50 Mg Tablet) 150 mg PO BEDTIME [facility] Last Admin: 06/23/22 20:37 Dose: 150 mg Documented By: DONALDO Venlafaxine HCl (Venlafaxine Hcl Er 150 Mg Cap.Er.24h) 150 mg PO DAILY [facility] Last Admin: 06/24/22 08:04 Dose: 150 mg Documented By: JULIO Vitamin D (Cholecalciferol (Vitamin D3) 25 Mcg Tablet) 50 mcg PO DAILY [facility] Last Admin: 06/24/22 08:03 Dose: 50 mcg Documented By: JULIO Labs 06/24/22 08:13 06/24/22 08:13 Labs: Laboratory Results - last 24 hr 06/23/22 06/23/22 06/23/22 12:10 13:25 13:25 MCV MCH MCHC RDW Plt Count MPV Absolute Nucleated RBC Nucleated RBC % (auto) ESR 116 H Anion Gap Estim Creat Clear Calc Estimated GFR POC Glucose Random Glucose Lactic Acid 1.9 Calcium Troponin I High Sens 13.9 D B-Natriuretic Peptide Respiratory Panel Wilson Adenovirus (Rapid PCR) B.pert (TEM-PCR) B.parapertussis DNA PCR C. pneumoniae DNA (PCR) Coronavirus OC43 (PCR) Coronavirus HKU1 (PCR) Coronavirus 229E (PCR) Coronavirus NL63 (PCR) Human Metapneumovir PCR Influenza A (RT-PCR) Influenza B (RT-PCR) M. pneumoniae (PCR) Parainfluenza 1 (PCR) Parainfluenza 2 (PCR) Parainfluenza 3 (PCR) Parainfluenza 4 (PCR) RSV (PCR) Entero/Rhino (PCR) SARS-CoV-2 RNA (RT-PCR) 06/23/22 06/23/22 06/23/22 16:03 17:53 19:45 MCV MCH MCHC RDW Plt Count MPV Absolute Nucleated RBC Nucleated RBC % (auto) ESR Anion Gap Estim Creat Clear Calc Estimated GFR POC Glucose 394 H* 408 H* Random Glucose Lactic Acid Calcium Troponin I High Sens B-Natriuretic Peptide Respiratory Panel Wilson See Note Adenovirus (Rapid PCR) Not Detected B.pert (TEM-PCR) Not Detected B.parapertussis DNA PCR Not Detected C. pneumoniae DNA (PCR) Not Detected Coronavirus OC43 (PCR) Not Detected Coronavirus HKU1 (PCR) Not Detected Coronavirus 229E (PCR) Not Detected Coronavirus NL63 (PCR) Not Detected Human Metapneumovir PCR Not Detected Influenza A (RT-PCR) Not Detected Influenza B (RT-PCR) Not Detected M. pneumoniae (PCR) Not Detected Parainfluenza 1 (PCR) Not Detected Parainfluenza 2 (PCR) Not Detected Parainfluenza 3 (PCR) Not Detected Parainfluenza 4 (PCR) Not Detected RSV (PCR) Not Detected Entero/Rhino (PCR) Not Detected SARS-CoV-2 RNA (RT-PCR) Not Detected 06/23/22 06/24/22 06/24/22 20:15 07:44 08:13 MCV 84.6 MCH 29.3 MCHC 34.6 RDW 12.2 Plt Count 221 MPV 10.5 Absolute Nucleated RBC 0.000 Nucleated RBC % (auto) 0.0 ESR Anion Gap 19 Estim Creat Clear Calc 21.3 Estimated GFR 14 POC Glucose 420 H* Random Glucose 440 H* Lactic Acid Calcium 9.3 Troponin I High Sens B-Natriuretic Peptide Respiratory Panel Wilson Adenovirus (Rapid PCR) B.pert (TEM-PCR) B.parapertussis DNA PCR C. pneumoniae DNA (PCR) Coronavirus OC43 (PCR) Coronavirus HKU1 (PCR) Coronavirus 229E (PCR) Coronavirus NL63 (PCR) Human Metapneumovir PCR Influenza A (RT-PCR) Influenza B (RT-PCR) M. pneumoniae (PCR) Parainfluenza 1 (PCR) Parainfluenza 2 (PCR) Parainfluenza 3 (PCR) Parainfluenza 4 (PCR) RSV (PCR) Entero/Rhino (PCR) SARS-CoV-2 RNA (RT-PCR) 06/24/22 06/24/22 06/24/22 08:13 08:13 08:13 MCV MCH MCHC RDW Plt Count MPV Absolute Nucleated RBC Nucleated RBC % (auto) ESR Anion Gap 21 H Estim Creat Clear Calc 21.2 Cancelled Estimated GFR 14 Cancelled POC Glucose Random Glucose 484 H* Lactic Acid Calcium 9.7 Troponin I High Sens B-Natriuretic Peptide 1196 H Respiratory Panel Wilson Adenovirus (Rapid PCR) B.pert (TEM-PCR) B.parapertussis DNA PCR C. pneumoniae DNA (PCR) Coronavirus OC43 (PCR) Coronavirus HKU1 (PCR) Coronavirus 229E (PCR) Coronavirus NL63 (PCR) Human Metapneumovir PCR Influenza A (RT-PCR) Influenza B (RT-PCR) M. pneumoniae (PCR) Parainfluenza 1 (PCR) Parainfluenza 2 (PCR) Parainfluenza 3 (PCR) Parainfluenza 4 (PCR) RSV (PCR) Entero/Rhino (PCR) SARS-CoV-2 RNA (RT-PCR) 06/24/22 10:43 MCV MCH MCHC RDW Plt Count MPV Absolute Nucleated RBC Nucleated RBC % (auto) ESR Anion Gap Estim Creat Clear Calc Estimated GFR POC Glucose 485 H* Random Glucose Lactic Acid Calcium Troponin I High Sens B-Natriuretic Peptide Respiratory Panel Wilson Adenovirus (Rapid PCR) B.pert (TEM-PCR) B.parapertussis DNA PCR C. pneumoniae DNA (PCR) Coronavirus OC43 (PCR) Coronavirus HKU1 (PCR) Coronavirus 229E (PCR) Coronavirus NL63 (PCR) Human Metapneumovir PCR Influenza A (RT-PCR) Influenza B (RT-PCR) M. pneumoniae (PCR) Parainfluenza 1 (PCR) Parainfluenza 2 (PCR) Parainfluenza 3 (PCR) Parainfluenza 4 (PCR) RSV (PCR) Entero/Rhino (PCR) SARS-CoV-2 RNA (RT-PCR) Microbiology Microbiology Results: Microbiology 06/19/22 06:30 Blood Culture - Final Blood - Venous No growth after 5 days. 06/19/22 06:30 Blood Culture - Final Blood - Venous No growth after 5 days. Assessment and Plan (1) Acute respiratory failure with hypoxia: Status: Acute (2) Metabolic acidosis: Status: Acute (3) Acute on chronic kidney failure: Status: Acute (4) Pneumonia: Status: Acute (5) Pulmonary edema: Status: Acute Plan 56-year-old male with history of insulin-dependent type 2 diabetes, Yang, hypertension, depression, conversion disorder, chronic constipation, vertigo, CKD stage 3, HFpEF, and obesity?admitted for LEDA, metabolic acidosis, and pneumonia # Acute hypoxic respiratory failure 2/2 acute left lower lobe pneumonia with sepsis left basilar opacities possibly infectious versus inflammatory cover with Zosyn and Azithro (initiated 06/19) Vancomycin added per Pulm legionnaire and strep pneumo antigen pending Wean down O2 as tolerated Critical care recommended Lasix drip, patient made -3L last 24 hours Pulm recommended Steroids for pneumonitis and CT scan if start to worsen # Acute exacerbation of HFpEF repeat CXR showed pulm edema mildly elevated BNP stable ECHO DC LAsix I\O cardiology eval appreciated, no significant fluid overload but keep him dry #Noro virus gastroenteritis Positive GI panel for Noro negative C diff panel ondansetron p.r.n. for nausea advance diet as tolerated # Met Acidosis 2/2 acute kidney injury Bicarb improving likely prerenal related to GI loss creatinine worsened to 4.5 Baseline creatinine around 2.7 dc IVF nephro input appreciated, DC Lasix drip #Acute lactic acidosis secondary to tissue hypoperfusion from hypovolemia, not severe sepsis # chronic hyponatremia 2/2 diuretics monitor BMP # insulin-dependent type 2 diabetes without hyperglycemia continue home basal insulin Humalog on sliding scale POC glucose diabetic diet hold p.o. meds # diabetic polyneuropathy continue gabapentin # diabetic gastroparesis continue home meds # hypertension-reasonably controlled continue home meds # depression/anxiety/conversion disorder continue home meds # CKD stage 3, with baseline GFR >30 as above DVT prophylaxis heparin Patient wears inpatient stay overnight for management of LEDA and metabolic acidosis , PNA, heart failure pending weaning down O2 supplement Time Spent With Patient Time: Total time managing care of this patient today ____ minutes. Quality Stroke Does the patient have a stroke diagnosis?: No VTE Prior VTE?: No VTE Risk Level:: Medical - moderate - high VTE Device Contraindication: Treatment Not Indicated VTE Drug Contraindication: N/A - Med Ordered
[2022-06-24] MEDS: vancomycin HCL 500 MG in 0.9 % Sodium Chloride 100 ML 110 MG IV (14:41)
--- NOTE | 2022-06-24 15:53 | HE.PHANOTE ---
VANCOMYCIN DOSING ADDENDUM Vancomycin consult ordered, vancomycin 1750 mg load followed by [address] Carter went into patients room and told RN Gisella to stop infusing Vancomycin 1750 mg ( pt received approximately 50 ml per RN) and to instead hang a Vancomycin [address] Peres was concerned with renal function. There is no documentation of this in the chart because MD did not order this med. Gisella called me today to tell me about the situation. Changed random level before 3rd dose on 06/25/22. Please get daily levels to appropriately dose vancomycin based on levels going forward.
[2022-06-24 16:28] LABS: Glucose, Whole Blood 479 mg/dL (60-115)
[2022-06-24] MEDS: hydrALAZINE HCl 20 MG/ML VIAL 10 MG IVPUSH (17:03)
[2022-06-24 18:21] LABS: B Type Natriuretic Peptide 935 pg/mL (<100)
[2022-06-24 19:53] LABS: Strep Pneumo Ag urine Not Detected (Not Detected)
[2022-06-24 20:25] LABS: Glucose, Whole Blood 486 mg/dL (60-115)
[2022-06-24] MEDS: Gabapentin 100 MG CAPSULE PO (20:57)
[2022-06-24] MEDS: traZODone HCL 50 MG TABLET 150 MG PO (20:58)
[2022-06-24] MEDS: clonazePAM 1 MG TABLET PO (21:39)
[2022-06-25] VITALS (7 sets, daily range): BP systolic 154–188; BP diastolic 78–89; PULSE 80–94; RESP 15–20; TEMP 36.6–37.1; O2SAT 85–98
[2022-06-25] MEDS: Heparin Sodium,Porcine 5,000 UNIT/ML VIAL 5000 UNIT SUBCUT ×2 (00:49→11:58)
[2022-06-25] MEDS: 0.9 % Sodium Chloride Flush 3 ML SYRINGE IVFLUSH ×4 (00:50→21:20)
[2022-06-25] MEDS: Piperacillin Sodium/Tazobactam 2.25 GM in 0.9 % Sodium Chloride 50 ML IV ×4 (03:55→21:20)
[2022-06-25 04:31] LABS: HIV Num 1 3.91 S/CO (0.00-0.99)
[2022-06-25 04:52] LABS: HIV AB/AG Nonreactive (Nonreactive); HIV Num 2 0.05 S/CO; HIV Num 3 0.06 S/CO
[2022-06-25 07:36] LABS: Glucose, Whole Blood 282 mg/dL (60-115)
[2022-06-25] MEDS: Famotidine 20 MG TABLET PO ×2 (07:59→21:16)
[2022-06-25] MEDS: Labetalol HCL 100 MG TABLET 300 MG PO ×2 (07:59→21:17)
[2022-06-25] MEDS: amLODIPine Besylate 10 MG TABLET PO (07:59)
[2022-06-25] MEDS: Simethicone 80 MG TAB.CHEW 160 MG PO ×3 (08:00→21:17)
[2022-06-25] MEDS: Multivitamin TABLET 1 TAB PO (08:00)
[2022-06-25] MEDS: Venlafaxine HCl ER 150 MG CAP.ER.24H PO (08:00)
[2022-06-25] MEDS: Cholecalciferol (Vitamin D3) 25 MCG TABLET 50 MCG PO (08:01)
[2022-06-25] MEDS: Metoclopramide HCl 5 MG TABLET PO ×4 (08:01→21:16)
[2022-06-25] MEDS: Insulin Lispro 100 UNIT/ML 3 ML VIAL SUBCUT ×4 (08:01→21:22)
[2022-06-25] MEDS: Insulin Glargine,Hum.rec.anlog 100 UNIT/ML 10 ML VIAL 30 UNIT SUBCUT (08:03)
[2022-06-25] MEDS: buPROPion HCl XL 150 MG TAB.ER.24H PO (08:04)
[2022-06-25] MEDS: hydrALAZINE HCl 50 MG TABLET PO ×3 (08:17→21:15)
[2022-06-25 08:19] LABS: Hematocrit 26.3 % (42.0-52.0); Hemoglobin 9.1 g/dl (14.0-18.0); Mean Corpuscular HGB Conc 34.6 g/dl (31.0-36.0); Mean Corpuscular Hemoglobin 29.3 pg (27.0-33.0); Mean Corpuscular Volume 84.6 fL (80.0-98.0); Mean Platelet Volume 10.6 fL (9.4-12.4); Platelet Count 270 X10*3/uL (160-400); Red Blood Count 3.11 X10*6/uL (4.60-5.80); Red Cell Distribution Width 12.4 % (11.0-16.0); White Blood Count 11.7 X10*3/uL (4.8-10.8)
[2022-06-25 08:49] LABS: Creatinine Clr Calc Pharmacy 20.7; Estimated Glomerular Filt Rate 13
[2022-06-25 08:51] LABS: Anion Gap 20 (12-20); Blood Urea Nitrogen 111 mg/dL (9-16); Calcium 9.4 mg/dL (8.4-10.2); Carbon Dioxide 20 mmol/L (22-29); Chloride 100 mmol/L (96-108); Creatinine Clr Calc Pharmacy 20.6; Estimated Glomerular Filt Rate 13; Glucose Random 296 mg/dL (60-115); Potassium 3.8 mmol/L (3.3-5.1); Sodium 136 mmol/L (135-145)
--- NOTE | 2022-06-25 11:12 | P.PNNP_ITS ---
Subjective Subjective Date of Service: 06/26/22 Interval history: Seen and evaluated this morning feels better overall but weak diarrhea resolved Physical Exam Vital Signs: Vital Signs: Last Vital Signs Temp 97.8 F 06/25/22 08:00 Pulse 85 06/25/22 08:00 Resp 16 06/25/22 08:00 BP 185/89 H 06/25/22 08:00 Pulse Ox 95 06/25/22 08:00 O2 Del Method High Flow Nasal C annula 06/25/22 08:00 O2 Flow Rate 30 06/24/22 20:16 FiO2 35 06/24/22 20:16 Oxygen Flow Rate 4 06/19/22 06:00 BMI result Body Mass Index 32.1 Const: Other: Constitutional : Awake, interactive, not in distress Neck : Normal inspection, Supple Cardiovascular : RRR, no JVP, trace lower extremity edema Respiratory : good bilateral air entry, basal bilateral crackles more on left, wheezes or rhonchi Gastrointestinal: soft, lax, Normal bowel sounds, Non tender Skin : Warm, Dry Neurological : Alert & oriented x3, No focal deficit Objective Data Labs 06/25/22 07:28 06/25/22 07:28 Labs: Laboratory Results - last 24 hr 06/20/22 06/23/22 06/24/22 11:35 13:25 16:21 WBC RBC Hgb Hct MCV MCH MCHC RDW Plt Count MPV Absolute Nucleated RBC Nucleated RBC % (auto) Sodium Potassium Chloride Carbon Dioxide Anion Gap BUN Creatinine Estim Creat Clear Calc Estimated GFR POC Glucose 479 H* Random Glucose Calcium B-Natriuretic Peptide HIV 1&2 Ab/P24 Ag 4thGn Nonreactive Ur Strep pneumoniae Ag Not Detected 06/24/22 06/24/22 06/25/22 17:43 20:13 07:28 WBC 11.7 H RBC 3.11 L Hgb 9.1 L Hct 26.3 L MCV 84.6 MCH 29.3 MCHC 34.6 RDW 12.4 Plt Count 270 MPV 10.6 Absolute Nucleated RBC 0.000 Nucleated RBC % (auto) 0.0 Sodium Potassium Chloride Carbon Dioxide Anion Gap BUN Creatinine Estim Creat Clear Calc Estimated GFR POC Glucose 486 H* Random Glucose Calcium B-Natriuretic Peptide 935 H HIV 1&2 Ab/P24 Ag 4thGn Ur Strep pneumoniae Ag 06/25/22 06/25/22 06/25/22 07:28 07:28 07:28 WBC RBC Hgb Hct MCV MCH MCHC RDW Plt Count MPV Absolute Nucleated RBC Nucleated RBC % (auto) Sodium 136 Potassium 3.8 Chloride 100 Carbon Dioxide 20 L Anion Gap 20 BUN 111 H Creatinine 4.62 H* 4.60 H* Estim Creat Clear Calc 20.6 20.7 Estimated GFR 13 13 POC Glucose 282 H Random Glucose 296 H Calcium 9.4 B-Natriuretic Peptide HIV 1&2 Ab/P24 Ag 4thGn Ur Strep pneumoniae Ag Microbiology Microbiology Results: Microbiology 06/19/22 06:30 Blood - Venous Blood Culture - Final No growth after 5 days. 06/19/22 06:30 Blood - Venous Blood Culture - Final No growth after 5 days. Procedures Date of Service Date of Service: 06/25/22 Assessment & Plan Assessment and plan (1) Acute on chronic kidney failure: Status: Acute (2) Diarrhea: Status: Acute (3) (HFpEF) heart failure with preserved ejection fraction: Status: Acute (4) Metabolic acidosis: Status: Acute Plan 56-year-old man who is well known to me with a history of chronic kidney disease in the setting of longstanding diabetes mellitus and hypertension. Currently admitted with superimposed acute kidney injury in the setting of diarrhea. Acute kidney injury is most likely due to hypoperfusion from volume depletion secondary to dehydration from diarrhea. Other possibilities including obstructive uropathy ,glomerulonephritis or inters titial nephritis seems unlikely at this point. Mild hyponatremia due to hypovolemia at the time of admission. Serum sodium has improved. Significant metabolic acidosis due to acute kidney injury as well as bicarb losses in the stools Mild anemia without thrombocytopenia Recommendations Hold Lasix and all antihypertensives for now. Concur with current workup No absolute indication for dialysis. Renal function is improving We will follow him closely with the team. Time Spent With Patient Time: Total time managing care of this patient today ____ minutes. Progress Note: Quality Stroke Does the patient have a stroke diagnosis?: No
[2022-06-25 11:47] LABS: Glucose, Whole Blood 322 mg/dL (60-115)
[2022-06-25 12:58] LABS: Immunoglobulin G Subclass 1 588 mg/dL (382-929); Immunoglobulin G Subclass 2 280 mg/dL (241-700); Immunoglobulin G Subclass 3 19 mg/dL (22-178); Immunoglobulin G Subclass 4 36.4 mg/dL (4-86); Immunoglobulin G Total 1024 mg/dL (600-1640)
[2022-06-25] MEDS: Azithromycin 500 MG in 0.9 % Sodium Chloride 250 ML 125 MG IV (13:16)
[2022-06-25 13:29] LABS: Myeloperoxidase Antibody <1.0 AI; Proteinase 3 PR3 Antibodies <1.0 AI
[2022-06-25 13:46] LABS: Vancomycin Random 9.7 mcg/mL (15-20)
--- NOTE | 2022-06-25 13:52 | HO.PM.IMPN ---
Subjective Subjective Date of Service: 06/25/22 Interval History: Seen and evaluated this morning feels better overall but weak weaning him down from highflow diarrhea resolved tolerating diet no overnight events Review of Systems Review of Systems: Yes all other systems are reviewed and are negative Physical Exam Vital Signs: Vital Signs: Last Vital Signs Temp 97.8 F 06/25/22 08:00 Pulse 85 06/25/22 08:00 Resp 16 06/25/22 08:00 BP 185/89 H 06/25/22 08:00 Pulse Ox 95 06/25/22 08:00 O2 Del Method High Flow Nasal C annula 06/25/22 08:00 O2 Flow Rate 30 06/24/22 20:16 FiO2 35 06/24/22 20:16 Oxygen Flow Rate 4 06/19/22 06:00 BMI result Body Mass Index 32.1 Const: Other: Constitutional : Awake, interactive, in mild resp distress Neck : Normal inspection, Supple Cardiovascular : RRR, JVP, trace lower extremity edema Respiratory : good bilateral air entry, basal bilateral crackles, no wheezes or rhonchi, on oxygen supplement Gastrointestinal: soft, lax, Normal bowel sounds, Non tender Skin : Warm, Dry Neurological : Alert & oriented x3, No focal deficit Objective Data Active Medications Amlodipine Besylate (Amlodipine Besylate 10 Mg Tablet) 10 mg PO DAILY [facility]; Protocol Last Admin: 06/25/22 07:59 Dose: 10 mg Documented By: JULIO Bupropion HCl (Bupropion Hcl Xl 150 Mg Tab.Er.24h) 150 mg PO DAILY [facility] Last Admin: 06/25/22 08:04 Dose: 150 mg Documented By: JULIO Famotidine (Famotidine 20 Mg Tablet) 20 mg PO BID [facility] Last Admin: 06/25/22 07:59 Dose: 20 mg Documented By: JULIO Gabapentin (Gabapentin 100 Mg Capsule) 100 mg PO BEDTIME [facility] Last Admin: 06/24/22 20:57 Dose: 100 mg Documented By: IMAN Glucose (Glucose Gel 15 Gm Gel..Gram.) 15 gm PO Q15M PRN; Protocol PRN Reason: per Hypoglycemia Standing Ord. Guaifenesin (Guaifenesin 200 Mg/10 Ml 10 Ml Liquid) 10 ml PO Q4H PRN PRN Reason: Cough Heparin Sodium (Porcine) (Heparin Sodium,Porcine 5,000 Unit/Ml Vial) 5,000 unit SUBCUT Q12H [facility] Last Admin: 06/25/22 11:58 Dose: 5,000 unit Documented By: JULIO Hydralazine HCl (Hydralazine Hcl 50 Mg Tablet) 50 mg PO TID [facility]; Protocol Last Admin: 06/25/22 13:14 Dose: 50 mg Documented By: GAVIN Dextrose (D10) 250 mls @ 750 mls/hr IV Q15M PRN; Protocol PRN Reason: per Hypoglycemia Standing Ord. Azithromycin 500 mg/ Sodium (Chloride) 250 mls @ 125 mls/hr IV Q24H [facility] Last Admin: 06/25/22 13:16 Dose: 125 mls/hr Documented By: GAVIN Piperacillin Sod/Tazobactam (Sod 2.25 gm/ Sodium Chloride) 50 mls @ 100 mls/hr IV Q6H [facility] Last Admin: 06/25/22 13:15 Dose: 100 mls/hr Documented By: GAVIN Vancomycin HCl 500 mg/ Sodium (Chloride) 110 mls @ 110 mls/hr IV Q24H [facility] Last Infusion: 06/24/22 15:45 Dose: 0 mls/hr Documented By: GAVIN Insulin Glargine (Insulin Glargine,Hum.Rec.Anlog 100 Unit/Ml 10 Ml Vial) 30 unit SUBCUT DAILY [facility] Last Admin: 06/25/22 08:03 Dose: 30 unit Documented By: JULIO Insulin Human Lispro (Insulin Lispro 100 Unit/Ml 3 Ml Vial) 0 unit SUBCUT QIDACHS [facility]; Protocol Last Admin: 06/25/22 11:57 Dose: 10 unit Documented By: JULIO Labetalol HCl (Labetalol Hcl 100 Mg Tablet) 300 mg PO BID [facility] Last Admin: 06/25/22 07:59 Dose: 300 mg Documented By: JULIO Meclizine HCl (Meclizine Hcl 25 Mg Tablet) 25 mg PO Q6H PRN PRN Reason: Dizziness Methylprednisolone Sodium Succinate (Methylprednisolone Sod Succ 40 Mg/Ml Vial) 20 mg IVPUSH ONCE ONE Stop: 06/25/22 13:52 Metoclopramide HCl (Metoclopramide Hcl 5 Mg Tablet) 5 mg PO QID [facility] Last Admin: 06/25/22 11:58 Dose: 5 mg Documented By: JULIO Multivitamins/Vitamin C (Multivitamin Tablet) 1 tab PO DAILY [facility] Last Admin: 06/25/22 08:00 Dose: 1 tab Documented By: JULIO Pharmacy Consult (Consult Rx Vancomycin Dosing) 1 each MISCELLANE DAILY PRN PRN Reason: Consult order Simethicone (Simethicone 80 Mg Tab.Chew) 160 mg PO TID [facility] Last Admin: 06/25/22 13:14 Dose: 160 mg Documented By: GAVIN Sodium Chloride (0.9 % Sodium Chloride Flush 3 Ml Syringe) 3 ml IVFLUSH QSHIFT [facility] Last Admin: 06/25/22 11:58 Dose: 3 ml Documented By: JULIO Trazodone HCl (Trazodone Hcl 50 Mg Tablet) 150 mg PO BEDTIME [facility] Last Admin: 06/24/22 20:58 Dose: 150 mg Documented By: IMAN Venlafaxine HCl (Venlafaxine Hcl Er 150 Mg Cap.Er.24h) 150 mg PO DAILY [facility] Last Admin: 06/25/22 08:00 Dose: 150 mg Documented By: JULIO Vitamin D (Cholecalciferol (Vitamin D3) 25 Mcg Tablet) 50 mcg PO DAILY [facility] Last Admin: 06/25/22 08:01 Dose: 50 mcg Documented By: JULIO Labs 06/25/22 07:28 06/25/22 07:28 Labs: Laboratory Results - last 24 hr 06/20/22 06/23/22 06/23/22 11:35 12:10 12:10 MCV MCH MCHC RDW Plt Count MPV Absolute Nucleated RBC Nucleated RBC % (auto) Anion Gap Estim Creat Clear Calc Estimated GFR POC Glucose Random Glucose Calcium B-Natriuretic Peptide Random Vancomycin IgG Total 1024 IgG Subclass 1 588 IgG Subclass 2 280 IgG Subclass 3 19 L IgG Subclass 4 36.4 Proteinase 3 (PR3) Ab <1.0 Myeloperoxidase Ab <1.0 HIV 1&2 Ab/P24 Ag 4thGn Ur Strep pneumoniae Ag Not Detected 06/23/22 06/24/22 06/24/22 13:25 16:21 17:43 MCV MCH MCHC RDW Plt Count MPV Absolute Nucleated RBC Nucleated RBC % (auto) Anion Gap Estim Creat Clear Calc Estimated GFR POC Glucose 479 H* Random Glucose Calcium B-Natriuretic Peptide 935 H Random Vancomycin IgG Total IgG Subclass 1 IgG Subclass 2 IgG Subclass 3 IgG Subclass 4 Proteinase 3 (PR3) Ab Myeloperoxidase Ab HIV 1&2 Ab/P24 Ag 4thGn Nonreactive Ur Strep pneumoniae Ag 06/24/22 06/25/22 06/25/22 20:13 07:28 07:28 MCV 84.6 MCH 29.3 MCHC 34.6 RDW 12.4 Plt Count 270 MPV 10.6 Absolute Nucleated RBC 0.000 Nucleated RBC % (auto) 0.0 Anion Gap 20 Estim Creat Clear Calc 20.6 Estimated GFR 13 POC Glucose 486 H* Random Glucose 296 H Calcium 9.4 B-Natriuretic Peptide Random Vancomycin IgG Total IgG Subclass 1 IgG Subclass 2 IgG Subclass 3 IgG Subclass 4 Proteinase 3 (PR3) Ab Myeloperoxidase Ab HIV 1&2 Ab/P24 Ag 4thGn Ur Strep pneumoniae Ag 06/25/22 06/25/22 06/25/22 07:28 07:28 11:40 MCV MCH MCHC RDW Plt Count MPV Absolute Nucleated RBC Nucleated RBC % (auto) Anion Gap Estim Creat Clear Calc 20.7 Estimated GFR 13 POC Glucose 282 H 322 H Random Glucose Calcium B-Natriuretic Peptide Random Vancomycin IgG Total IgG Subclass 1 IgG Subclass 2 IgG Subclass 3 IgG Subclass 4 Proteinase 3 (PR3) Ab Myeloperoxidase Ab HIV 1&2 Ab/P24 Ag 4thGn Ur Strep pneumoniae Ag 06/25/22 12:59 MCV MCH MCHC RDW Plt Count MPV Absolute Nucleated RBC Nucleated RBC % (auto) Anion Gap Estim Creat Clear Calc Estimated GFR POC Glucose Random Glucose Calcium B-Natriuretic Peptide Random Vancomycin 9.7 L IgG Total IgG Subclass 1 IgG Subclass 2 IgG Subclass 3 IgG Subclass 4 Proteinase 3 (PR3) Ab Myeloperoxidase Ab HIV 1&2 Ab/P24 Ag 4thGn Ur Strep pneumoniae Ag Assessment and Plan (1) Pulmonary edema: Status: Acute (2) Acute respiratory failure with hypoxia: Status: Acute (3) Pneumonia: Status: Acute Plan 56-year-old male with history of insulin-dependent type 2 diabetes, Yang, hypertension, depression, conversion disorder, chronic constipation, vertigo, CKD stage 3, HFpEF, and obesity?admitted for LEDA, metabolic acidosis, and pneumonia # Acute hypoxic respiratory failure 2/2 acute left lower lobe pneumonia with sepsis left basilar opacities possibly infectious versus inflammatory cover with Zosyn and Vancomycin (initiated 06/19) legionnaire and strep pneumo antigen pending Wean down O2 as tolerated Pulm recommended Steroids for pneumonitis and CT scan if start to worsen # Acute exacerbation of HFpEF elevated BNP, patient looks dry stable ECHO DC LAsix I\O cardiology eval appreciated, no significant fluid overload but keep him dry #Noro virus gastroenteritis Positive GI panel for Noro negative C diff panel ondansetron p.r.n. for nausea advance diet as tolerated # Met Acidosis 2/2 acute kidney injury Bicarb improving likely prerenal related to GI loss creatinine worsened to 4.5 Baseline creatinine around 2.7 dc IVF nephro input appreciated, DC Lasix drip #Acute lactic acidosis secondary to tissue hypoperfusion from hypovolemia, not severe sepsis # chronic hyponatremia 2/2 diuretics monitor BMP # insulin-dependent type 2 diabetes with hyperglycemia Lantus 50 units daily Humalog on sliding scale POC glucose diabetic diet hold p.o. meds # diabetic polyneuropathy continue gabapentin # diabetic gastroparesis continue home meds # hypertension-reasonably controlled continue home meds # depression/anxiety/conversion disorder continue home meds # CKD stage 3, with baseline GFR >30 as above DVT prophylaxis heparin Patient wears inpatient stay overnight for management of LEDA and metabolic acidosis , PNA, heart failure pending weaning down O2 supplement Time Spent With Patient Time: Total time managing care of this patient today ____ minutes. Quality Stroke Does the patient have a stroke diagnosis?: No VTE Prior VTE?: No VTE Risk Level:: Medical - moderate - high VTE Device Contraindication: Treatment Not Indicated VTE Drug Contraindication: N/A - Med Ordered
--- NOTE | 2022-06-25 13:57 | HE.PHANOTE ---
Vancomycin Dosing Addendum Patients level came back at 9.7 mg/dL. Patient has only received a 500 mg load and a 500 mg maintenance dose. Patients level is at 9.7 from just 1 gram of vancomycin due to poor renal function. Will continue dose of 500 mg Q24H and continue to monitor level and renal daily. Predicted AUC 529 mg/L/hr
[2022-06-25] MEDS: vancomycin HCL 500 MG in 0.9 % Sodium Chloride 100 ML 110 MG IV (14:36)
[2022-06-25 16:08] LABS: Glucose, Whole Blood 318 mg/dL (60-115)
[2022-06-25] MEDS: Insulin Glargine,Hum.rec.anlog 100 UNIT/ML 10 ML VIAL 20 UNIT SUBCUT (16:19)
[2022-06-25] MEDS: methylPREDNISolone Sod Succ 40 MG/ML VIAL 20 MG IVPUSH (16:20)
--- NOTE | 2022-06-25 16:20 | MHC.CM.PN ---
No discharge today per MD rounds. Patient is in the process of being weaned from O@. He is no longer on High Flow. PT rec STR. DP home w resumption of [facility] vs STR via BLS. CM will follow.
[2022-06-25 16:34] LABS: Cyclic Citrullinated Peptide <16 UNITS
[2022-06-25 18:44] LABS: Legionella Ag Urine Not Detected (Not Detected)
[2022-06-25 18:44] LABS: Immunoglobulin E 14 kU/L (<OR=114)
[2022-06-25 19:47] LABS: Glucose, Whole Blood 337 mg/dL (60-115)
[2022-06-25] MEDS: traZODone HCL 50 MG TABLET 150 MG PO (21:14)
[2022-06-25] MEDS: Gabapentin 100 MG CAPSULE PO (21:15)
[2022-06-26] MEDS: Heparin Sodium,Porcine 5,000 UNIT/ML VIAL 5000 UNIT SUBCUT ×2 (02:33→11:59)
[2022-06-26] MEDS: Piperacillin Sodium/Tazobactam 2.25 GM in 0.9 % Sodium Chloride 50 ML IV ×4 (02:35→20:21)
[2022-06-26 07:23] LABS: Glucose, Whole Blood 229 mg/dL (60-115)
[2022-06-26 07:46] LABS: Hematocrit 27.6 % (42.0-52.0); Hemoglobin 9.5 g/dl (14.0-18.0); Mean Corpuscular HGB Conc 34.4 g/dl (31.0-36.0); Mean Corpuscular Hemoglobin 28.8 pg (27.0-33.0); Mean Corpuscular Volume 83.6 fL (80.0-98.0); Mean Platelet Volume 10.3 fL (9.4-12.4); Platelet Count 298 X10*3/uL (160-400); Red Cell Distribution Width 12.3 % (11.0-16.0); White Blood Count 10.3 X10*3/uL (4.8-10.8)
[2022-06-26 08:00] VITALS: BP 178/82; PULSE 79; RESP 16; TEMP 36.6; O2SAT 96
[2022-06-26 08:06] LABS: Anion Gap 18 (12-20); Blood Urea Nitrogen 104 mg/dL (9-16); Calcium 9.5 mg/dL (8.4-10.2); Carbon Dioxide 20 mmol/L (22-29); Chloride 106 mmol/L (96-108); Creatinine Clr Calc Pharmacy 24.1; Estimated Glomerular Filt Rate 16; Glucose Random 236 mg/dL (60-115); Potassium 4.2 mmol/L (3.3-5.1); Sodium 140 mmol/L (135-145)
[2022-06-26] MEDS: amLODIPine Besylate 10 MG TABLET PO (08:16)
[2022-06-26] MEDS: Famotidine 20 MG TABLET PO (08:16)
[2022-06-26] MEDS: Metoclopramide HCl 5 MG TABLET PO ×4 (08:16→20:13)
[2022-06-26] MEDS: buPROPion HCl XL 150 MG TAB.ER.24H PO (08:16)
[2022-06-26] MEDS: Simethicone 80 MG TAB.CHEW 160 MG PO ×3 (08:16→20:13)
[2022-06-26] MEDS: Labetalol HCL 100 MG TABLET 300 MG PO ×2 (08:16→20:11)
[2022-06-26] MEDS: Multivitamin TABLET 1 TAB PO (08:16)
[2022-06-26] MEDS: Venlafaxine HCl ER 150 MG CAP.ER.24H PO (08:16)
[2022-06-26] MEDS: Cholecalciferol (Vitamin D3) 25 MCG TABLET 50 MCG PO (08:17)
[2022-06-26] MEDS: methylPREDNISolone Sod Succ 40 MG/ML VIAL 20 MG IVPUSH (08:17)
[2022-06-26] MEDS: hydrALAZINE HCl 25 MG TABLET 75 MG PO ×3 (08:17→20:12)
[2022-06-26] MEDS: 0.9 % Sodium Chloride Flush 3 ML SYRINGE IVFLUSH ×2 (08:18→16:20)
[2022-06-26] MEDS: Insulin Glargine,Hum.rec.anlog 100 UNIT/ML 10 ML VIAL 50 UNIT SUBCUT (08:18)
[2022-06-26] MEDS: Insulin Lispro 100 UNIT/ML 3 ML VIAL SUBCUT ×4 (08:18→20:13)
--- NOTE | 2022-06-26 09:25 | P.PNNP_ITS ---
Subjective Subjective Date of Service: 06/26/22 Interval history: Events noted. Feeling better. Respiration is improved. Urine output is excellent. Physical Exam Vital Signs: Vital Signs: Last Vital Signs Temp 97.9 F 06/26/22 08:00 Pulse 79 06/26/22 08:00 Resp 16 06/26/22 08:00 BP 178/82 H 06/26/22 08:00 Pulse Ox 96 06/26/22 08:00 O2 Del Method Nasal Cannula 06/26/22 08:00 O2 Flow Rate 4 06/25/22 23:28 FiO2 35 06/24/22 20:16 Oxygen Flow Rate 4 06/19/22 06:00 BMI result Body Mass Index 32.1 Const: Other: Constitutional : Awake, interactive, not in distress Neck : Normal inspection, Supple Cardiovascular : RRR, no JVP, trace lower extremity edema Respiratory : good bilateral air entry, basal bilateral crackles more on left, wheezes or rhonchi Gastrointestinal: soft, lax, Normal bowel sounds, Non tender Skin : Warm, Dry Neurological : Alert & oriented x3, No focal deficit General: no acute distress HEENT: Head: Yes normocephalic and Yes atraumatic Resp: Auscultation: diminished lung sounds Cardio: Heart sounds: S1 normal heart sound present and S2 normal heart sound present GI: Palpation (GI): Soft to palpation Extrem: General: Yes edema Psych: Attitude: cooperative Objective Data Labs 06/26/22 07:14 06/26/22 07:14 Labs: Laboratory Results - last 24 hr 06/20/22 06/23/22 06/23/22 11:35 12:10 12:10 WBC RBC Hgb Hct MCV MCH MCHC RDW Plt Count MPV Absolute Nucleated RBC Nucleated RBC % (auto) Sodium Potassium Chloride Carbon Dioxide Anion Gap BUN Creatinine Estim Creat Clear Calc Estimated GFR POC Glucose Random Glucose Calcium Random Vancomycin IgG Total IgG Subclass 1 IgG Subclass 2 IgG Subclass 3 IgG Subclass 4 IgE Cycl Citrul Peptide IgG <16 Proteinase 3 (PR3) Ab <1.0 Myeloperoxidase Ab <1.0 Ur L.pneumophila Ag Not Detected 06/23/22 06/23/22 06/25/22 12:10 13:25 11:40 WBC RBC Hgb Hct MCV MCH MCHC RDW Plt Count MPV Absolute Nucleated RBC Nucleated RBC % (auto) Sodium Potassium Chloride Carbon Dioxide Anion Gap BUN Creatinine Estim Creat Clear Calc Estimated GFR POC Glucose 322 H Random Glucose Calcium Random Vancomycin IgG Total 1024 IgG Subclass 1 588 IgG Subclass 2 280 IgG Subclass 3 19 L IgG Subclass 4 36.4 IgE 14 Cycl Citrul Peptide IgG Proteinase 3 (PR3) Ab Myeloperoxidase Ab Ur L.pneumophila Ag 06/25/22 06/25/22 06/25/22 12:59 15:58 19:35 WBC RBC Hgb Hct MCV MCH MCHC RDW Plt Count MPV Absolute Nucleated RBC Nucleated RBC % (auto) Sodium Potassium Chloride Carbon Dioxide Anion Gap BUN Creatinine Estim Creat Clear Calc Estimated GFR POC Glucose 318 H 337 H Random Glucose Calcium Random Vancomycin 9.7 L IgG Total IgG Subclass 1 IgG Subclass 2 IgG Subclass 3 IgG Subclass 4 IgE Cycl Citrul Peptide IgG Proteinase 3 (PR3) Ab Myeloperoxidase Ab Ur L.pneumophila Ag 06/26/22 06/26/22 06/26/22 07:14 07:14 07:14 WBC 10.3 RBC 3.30 L Hgb 9.5 L Hct 27.6 L MCV 83.6 MCH 28.8 MCHC 34.4 RDW 12.3 Plt Count 298 MPV 10.3 Absolute Nucleated RBC 0.000 Nucleated RBC % (auto) 0.0 Sodium 140 Potassium 4.2 Chloride 106 Carbon Dioxide 20 L Anion Gap 18 BUN 104 H Creatinine 3.96 H Cancelled Estim Creat Clear Calc 24.1 Cancelled Estimated GFR 16 Cancelled POC Glucose Random Glucose 236 H Calcium 9.5 Random Vancomycin IgG Total IgG Subclass 1 IgG Subclass 2 IgG Subclass 3 IgG Subclass 4 IgE Cycl Citrul Peptide IgG Proteinase 3 (PR3) Ab Myeloperoxidase Ab Ur L.pneumophila Ag 06/26/22 07:19 WBC RBC Hgb Hct MCV MCH MCHC RDW Plt Count MPV Absolute Nucleated RBC Nucleated RBC % (auto) Sodium Potassium Chloride Carbon Dioxide Anion Gap BUN Creatinine Estim Creat Clear Calc Estimated GFR POC Glucose 229 H Random Glucose Calcium Random Vancomycin IgG Total IgG Subclass 1 IgG Subclass 2 IgG Subclass 3 IgG Subclass 4 IgE Cycl Citrul Peptide IgG Proteinase 3 (PR3) Ab Myeloperoxidase Ab Ur L.pneumophila Ag Microbiology Microbiology Results: Microbiology 06/19/22 06:30 Blood - Venous Blood Culture - Final No growth after 5 days. 06/19/22 06:30 Blood - Venous Blood Culture - Final No growth after 5 days. Procedures Date of Service Date of Service: 06/26/22 Assessment & Plan Assessment and plan (1) Acute on chronic kidney failure: Status: Acute (2) Diarrhea: Status: Acute (3) (HFpEF) heart failure with preserved ejection fraction: Status: Acute (4) Metabolic acidosis: Status: Acute Plan 56-year-old man who is well known to me with a history of chronic kidney disease in the setting of longstanding diabetes mellitus and hypertension. Currently admitted with superimposed acute kidney injury in the setting of diarrhea. Acute kidney injury is most likely due to hypoperfusion from volume depletion secondary to dehydration from diarrhea. Other possibilities including obstructive uropathy ,glomerulonephritis or inters titial nephritis seems unlikely at this point. Mild hyponatremia due to hypovolemia at the time of admission. Serum sodium has improved. Significant metabolic acidosis due to acute kidney injury as well as bicarb losses in the stools Mild anemia without thrombocytopenia Recommendations Hold Lasix . Concur with current workup No absolute indication for dialysis. Renal function is improving We will follow him closely with the team. Time Spent With Patient Time: Total time managing care of this patient today ____ minutes. Progress Note: Quality Stroke Does the patient have a stroke diagnosis?: No
--- NOTE | 2022-06-26 09:42 | P.PNIM_ITS ---
Subjective Subjective Date of Service: 06/26/22 Interval History: Seen and evaluated this morning feels better overall but weak weaning him down oxygen supplement diarrhea resolved tolerating diet no overnight events Review of Systems Review of Systems: Yes all other systems are reviewed and are negative Physical Exam Vital Signs: Vital Signs: Last Vital Signs Temp 97.9 F 06/26/22 08:00 Pulse 79 06/26/22 08:00 Resp 16 06/26/22 08:00 BP 178/82 H 06/26/22 08:00 Pulse Ox 96 06/26/22 08:00 O2 Del Method Nasal Cannula 06/26/22 08:00 O2 Flow Rate 4 06/25/22 23:28 FiO2 35 06/24/22 20:16 Oxygen Flow Rate 4 06/19/22 06:00 BMI result Body Mass Index 32.1 Const: Other: Constitutional : Awake, interactive, in mild resp distress Neck : Normal inspection, Supple Cardiovascular : RRR, JVP, trace lower extremity edema Respiratory : good bilateral air entry, basal bilateral fine crackles, no wheezes or rhonchi, on oxygen supplement Gastrointestinal: soft, lax, Normal bowel sounds, Non tender Skin : Warm, Dry Neurological : Alert & oriented x3, No focal deficit Objective Data Active Medications Amlodipine Besylate (Amlodipine Besylate 10 Mg Tablet) 10 mg PO DAILY [facility]; Protocol Last Admin: 06/26/22 08:16 Dose: 10 mg Documented By: FRANCE Bupropion HCl (Bupropion Hcl Xl 150 Mg Tab.Er.24h) 150 mg PO DAILY [facility] Last Admin: 06/26/22 08:16 Dose: 150 mg Documented By: FRANCE Clonazepam (Clonazepam 0.5 Mg Tablet) 0.5 mg PO TID PRN PRN Reason: anxiety/restlessness Famotidine (Famotidine 20 Mg Tablet) 10 mg PO DAILY [facility] Gabapentin (Gabapentin 100 Mg Capsule) 100 mg PO BEDTIME [facility] Last Admin: 06/25/22 21:15 Dose: 100 mg Documented By: SUZETTE Glucose (Glucose Gel 15 Gm Gel..Gram.) 15 gm PO Q15M PRN; Protocol PRN Reason: per Hypoglycemia Standing Ord. Guaifenesin (Guaifenesin 200 Mg/10 Ml 10 Ml Liquid) 10 ml PO Q4H PRN PRN Reason: Cough Heparin Sodium (Porcine) (Heparin Sodium,Porcine 5,000 Unit/Ml Vial) 5,000 unit SUBCUT Q12H [facility] Last Admin: 06/26/22 02:33 Dose: 5,000 unit Documented By: SUZETTE Hydralazine HCl (Hydralazine Hcl 25 Mg Tablet) 75 mg PO TID [facility]; Protocol Last Admin: 06/26/22 08:17 Dose: 75 mg Documented By: FRANCE Dextrose (D10) 250 mls @ 750 mls/hr IV Q15M PRN; Protocol PRN Reason: per Hypoglycemia Standing Ord. Piperacillin Sod/Tazobactam (Sod 2.25 gm/ Sodium Chloride) 50 mls @ 100 mls/hr IV Q6H [facility] Last Infusion: 06/26/22 09:34 Dose: 0 mls/hr Documented By: FRANCE Vancomycin HCl 500 mg/ Sodium (Chloride) 110 mls @ 110 mls/hr IV Q24H [facility] Last Infusion: 06/25/22 16:41 Dose: 0 mls/hr Documented By: GAVIN Insulin Glargine (Insulin Glargine,Hum.Rec.Anlog 100 Unit/Ml 10 Ml Vial) 50 unit SUBCUT DAILY [facility] Last Admin: 06/26/22 08:18 Dose: 50 unit Documented By: FRANCE Insulin Human Lispro (Insulin Lispro 100 Unit/Ml 3 Ml Vial) 0 unit SUBCUT QIDACHS [facility]; Protocol Last Admin: 06/26/22 08:18 Dose: 4 unit Documented By: FRANCE Labetalol HCl (Labetalol Hcl 100 Mg Tablet) 300 mg PO BID [facility] Last Admin: 06/26/22 08:16 Dose: 300 mg Documented By: FRANCE Meclizine HCl (Meclizine Hcl 25 Mg Tablet) 25 mg PO Q6H PRN PRN Reason: Dizziness Metoclopramide HCl (Metoclopramide Hcl 5 Mg Tablet) 5 mg PO QID [facility] Last Admin: 06/26/22 08:16 Dose: 5 mg Documented By: FRANCE Multivitamins/Vitamin C (Multivitamin Tablet) 1 tab PO DAILY [facility] Last Admin: 06/26/22 08:16 Dose: 1 tab Documented By: FRANCE Pharmacy Consult (Consult Rx Vancomycin Dosing) 1 each MISCELLANE DAILY PRN PRN Reason: Consult order Simethicone (Simethicone 80 Mg Tab.Chew) 160 mg PO TID [facility] Last Admin: 06/26/22 08:16 Dose: 160 mg Documented By: FRANCE Sodium Chloride (0.9 % Sodium Chloride Flush 3 Ml Syringe) 3 ml IVFLUSH QSHIFT [facility] Last Admin: 06/26/22 08:18 Dose: 3 ml Documented By: FRANCE Trazodone HCl (Trazodone Hcl 50 Mg Tablet) 150 mg PO BEDTIME [facility] Last Admin: 06/25/22 21:14 Dose: 150 mg Documented By: SUZETTE Venlafaxine HCl (Venlafaxine Hcl Er 150 Mg Cap.Er.24h) 150 mg PO DAILY [facility] Last Admin: 06/26/22 08:16 Dose: 150 mg Documented By: FRANCE Vitamin D (Cholecalciferol (Vitamin D3) 25 Mcg Tablet) 50 mcg PO DAILY [facility] Last Admin: 06/26/22 08:17 Dose: 50 mcg Documented By: FRANCE Labs 06/26/22 07:14 06/26/22 07:14 Labs: Laboratory Results - last 24 hr 06/20/22 06/23/22 06/23/22 11:35 12:10 12:10 MCV MCH MCHC RDW Plt Count MPV Absolute Nucleated RBC Nucleated RBC % (auto) Anion Gap Estim Creat Clear Calc Estimated GFR POC Glucose Random Glucose Calcium Random Vancomycin IgG Total IgG Subclass 1 IgG Subclass 2 IgG Subclass 3 IgG Subclass 4 IgE Cycl Citrul Peptide IgG <16 Proteinase 3 (PR3) Ab <1.0 Myeloperoxidase Ab <1.0 Ur L.pneumophila Ag Not Detected 06/23/22 06/23/22 06/25/22 12:10 13:25 11:40 MCV MCH MCHC RDW Plt Count MPV Absolute Nucleated RBC Nucleated RBC % (auto) Anion Gap Estim Creat Clear Calc Estimated GFR POC Glucose 322 H Random Glucose Calcium Random Vancomycin IgG Total 1024 IgG Subclass 1 588 IgG Subclass 2 280 IgG Subclass 3 19 L IgG Subclass 4 36.4 IgE 14 Cycl Citrul Peptide IgG Proteinase 3 (PR3) Ab Myeloperoxidase Ab Ur L.pneumophila Ag 06/25/22 06/25/22 06/25/22 12:59 15:58 19:35 MCV MCH MCHC RDW Plt Count MPV Absolute Nucleated RBC Nucleated RBC % (auto) Anion Gap Estim Creat Clear Calc Estimated GFR POC Glucose 318 H 337 H Random Glucose Calcium Random Vancomycin 9.7 L IgG Total IgG Subclass 1 IgG Subclass 2 IgG Subclass 3 IgG Subclass 4 IgE Cycl Citrul Peptide IgG Proteinase 3 (PR3) Ab Myeloperoxidase Ab Ur L.pneumophila Ag 06/26/22 06/26/22 06/26/22 07:14 07:14 07:14 MCV 83.6 MCH 28.8 MCHC 34.4 RDW 12.3 Plt Count 298 MPV 10.3 Absolute Nucleated RBC 0.000 Nucleated RBC % (auto) 0.0 Anion Gap 18 Estim Creat Clear Calc 24.1 Cancelled Estimated GFR 16 Cancelled POC Glucose Random Glucose 236 H Calcium 9.5 Random Vancomycin IgG Total IgG Subclass 1 IgG Subclass 2 IgG Subclass 3 IgG Subclass 4 IgE Cycl Citrul Peptide IgG Proteinase 3 (PR3) Ab Myeloperoxidase Ab Ur L.pneumophila Ag 06/26/22 07:19 MCV MCH MCHC RDW Plt Count MPV Absolute Nucleated RBC Nucleated RBC % (auto) Anion Gap Estim Creat Clear Calc Estimated GFR POC Glucose 229 H Random Glucose Calcium Random Vancomycin IgG Total IgG Subclass 1 IgG Subclass 2 IgG Subclass 3 IgG Subclass 4 IgE Cycl Citrul Peptide IgG Proteinase 3 (PR3) Ab Myeloperoxidase Ab Ur L.pneumophila Ag Assessment and Plan (1) Pulmonary edema: Status: Acute (2) Acute respiratory failure with hypoxia: Status: Acute (3) Metabolic acidosis: Status: Acute (4) Acute on chronic kidney failure: Status: Acute (5) Diarrhea: Status: Acute Plan 56-year-old male with history of insulin-dependent type 2 diabetes, Yang, hypertension, depression, conversion disorder, chronic constipation, vertigo, CKD stage 3, HFpEF, and obesity?admitted for LEDA, metabolic acidosis, and pneumonia # Acute hypoxic respiratory failure 2/2 acute left lower lobe pneumonia with sepsis left basilar opacities possibly infectious versus inflammatory cover with Zosyn and Vancomycin (initiated 06/19), to finish 10 days Abx legionnaire and strep pneumo antigen pending Wean down O2 as tolerated Pulm recommended Steroids for pneumonitis , Day 4 # Acute exacerbation of HFpEF elevated BNP, patient looks dry stable ECHO DC LAsix I\O cardiology eval appreciated, no significant fluid overload but keep him dry #Noro virus gastroenteritis Positive GI panel for Noro negative C diff panel ondansetron p.r.n. for nausea advance diet as tolerated # Met Acidosis 2/2 acute kidney injury Bicarb improving likely prerenal related to GI loss creatinine trending down to almost 4 Baseline creatinine around 2.7 dc IVF nephro input appreciated, DC Lasix drip #Acute lactic acidosis secondary to tissue hypoperfusion from hypovolemia, not severe sepsis # chronic hyponatremia 2/2 diuretics monitor BMP # insulin-dependent type 2 diabetes with hyperglycemia Lantus 50 units daily Humalog on sliding scale POC glucose diabetic diet hold p.o. meds # diabetic polyneuropathy continue gabapentin # diabetic gastroparesis continue home meds # hypertension, uncontrolled Increase HYdralazine to 75 tid Amlodipine 10 mg daily continue home meds # depression/anxiety/conversion disorder continue home meds # CKD stage 3, with baseline GFR >30 as above DVT prophylaxis heparin Patient wears inpatient stay overnight for management of LEDA and metabolic acidosis , PNA, heart failure pending weaning down O2 supplement Time Spent With Patient Time: Total time managing care of this patient today ____ minutes. Quality Stroke Does the patient have a stroke diagnosis?: No VTE Prior VTE?: No VTE Risk Level:: Medical - moderate - high VTE Device Contraindication: Treatment Not Indicated VTE Drug Contraindication: N/A - Med Ordered
[2022-06-26 11:22] VITALS: PULSE 90; O2SAT 87
[2022-06-26 11:31] LABS: Glucose, Whole Blood 319 mg/dL (60-115)
[2022-06-26 13:41] LABS: Vancomycin Random 9.5 mcg/mL (15-20)
--- NOTE | 2022-06-26 13:54 | HE.PHANOTE ---
Vancomycin Dosing Addendum Patients level came back this afternoon at 9.5 mg/L down from 9.7 mg/L. Suspect this is due to the improvement in renal function, rx insight indicates that the current dose of 500mg is subtherapeutic. Scr at 3.96 mg/dL down from 4.62 mg/dL. Increased fose to 750 mg Q24H. Will continue to monitor renal function closely/daily and will continue to obtain daily levels as patients renal function is still not stable. Next draw is for 06/27 @1300 to ensure safety vs efficacy. predicted AUC 532 mg/L/hr
[2022-06-26] MEDS: Meclizine HCl 25 MG TABLET PO (14:16)
[2022-06-26] MEDS: vancomycin HCL 750 MG in 0.9 % Sodium Chloride 250 ML 265 MG IV (15:11)
[2022-06-26 15:37] VITALS: BP 161/72; PULSE 87; RESP 18; TEMP 37; O2SAT 92
[2022-06-26 15:55] LABS: Glucose, Whole Blood 415 mg/dL (60-115)
[2022-06-26] MEDS: Insulin Lispro 100 UNIT/ML 3 ML VIAL 10 UNIT SUBCUT (16:19)
[2022-06-26 20:01] LABS: Glucose, Whole Blood 341 mg/dL (60-115)
[2022-06-26] MEDS: traZODone HCL 50 MG TABLET 150 MG PO (20:12)
[2022-06-26] MEDS: Gabapentin 100 MG CAPSULE PO (20:13)
[2022-06-26 23:22] VITALS: BP 171/73; PULSE 73; RESP 18; TEMP 37.1; O2SAT 95
[2022-06-27] MEDS: Heparin Sodium,Porcine 5,000 UNIT/ML VIAL 5000 UNIT SUBCUT ×3 (00:17→23:28)
[2022-06-27] MEDS: 0.9 % Sodium Chloride Flush 3 ML SYRINGE IVFLUSH ×4 (00:24→20:13)
[2022-06-27] MEDS: Piperacillin Sodium/Tazobactam 2.25 GM in 0.9 % Sodium Chloride 50 ML IV ×4 (04:04→20:14)
[2022-06-27 07:01] LABS: Glucose, Whole Blood 126 mg/dL (60-115)
[2022-06-27 07:04] LABS: Hematocrit 26.9 % (42.0-52.0); Hemoglobin 9.3 g/dl (14.0-18.0); Mean Corpuscular HGB Conc 34.6 g/dl (31.0-36.0); Mean Corpuscular Hemoglobin 29.2 pg (27.0-33.0); Mean Corpuscular Volume 84.3 fL (80.0-98.0); Platelet Count 286 X10*3/uL (160-400); Red Blood Count 3.19 X10*6/uL (4.60-5.80); Red Cell Distribution Width 12.2 % (11.0-16.0); White Blood Count 11.7 X10*3/uL (4.8-10.8)
[2022-06-27 07:16] LABS: Creatinine Clr Calc Pharmacy 28.1; Estimated Glomerular Filt Rate 19
[2022-06-27 07:19] LABS: Anion Gap 16 (12-20); Blood Urea Nitrogen 97 mg/dL (9-16); Calcium 9.3 mg/dL (8.4-10.2); Carbon Dioxide 22 mmol/L (22-29); Chloride 108 mmol/L (96-108); Creatinine Clr Calc Pharmacy 28.4; Estimated Glomerular Filt Rate 19; Glucose Random 129 mg/dL (60-115); Potassium 3.6 mmol/L (3.3-5.1); Sodium 142 mmol/L (135-145)
[2022-06-27 07:31] VITALS: BP 179/84; PULSE 84; RESP 16; TEMP 36.6; O2SAT 93
[2022-06-27 07:58] LABS: Anti Nuclear Antibody Screen NEGATIVE (NEGATIVE)
[2022-06-27] MEDS: Cholecalciferol (Vitamin D3) 25 MCG TABLET 50 MCG PO (08:58)
[2022-06-27] MEDS: Venlafaxine HCl ER 150 MG CAP.ER.24H PO (08:58)
[2022-06-27] MEDS: Metoclopramide HCl 5 MG TABLET PO ×4 (08:59→19:53)
[2022-06-27] MEDS: Simethicone 80 MG TAB.CHEW 160 MG PO ×3 (08:59→19:54)
[2022-06-27] MEDS: hydrALAZINE HCl 25 MG TABLET 75 MG PO ×3 (09:00→20:11)
[2022-06-27] MEDS: Labetalol HCL 100 MG TABLET 300 MG PO ×2 (09:00→19:50)
[2022-06-27] MEDS: buPROPion HCl XL 150 MG TAB.ER.24H PO (09:01)
[2022-06-27] MEDS: Multivitamin TABLET 1 TAB PO (09:01)
[2022-06-27] MEDS: Famotidine 20 MG TABLET 10 MG PO (09:01)
[2022-06-27] MEDS: amLODIPine Besylate 10 MG TABLET PO (09:01)
[2022-06-27] MEDS: Insulin Glargine,Hum.rec.anlog 100 UNIT/ML 10 ML VIAL 70 UNIT SUBCUT (09:02)
--- NOTE | 2022-06-27 09:22 | PM.PNNEP ---
Subjective Subjective Date of Service: 06/28/22 Interval history: events noted. Feeling better today. No further diarrhea. Physical Exam Vital Signs: Vital Signs: Last Vital Signs Temp 97.9 F 06/27/22 07:31 Pulse 84 06/27/22 07:31 Resp 16 06/27/22 07:31 BP 179/84 H 06/27/22 07:31 Pulse Ox 93 06/27/22 07:31 O2 Del Method Nasal Cannula 06/26/22 23:22 O2 Flow Rate 1 06/26/22 23:22 FiO2 35 06/24/22 20:16 Oxygen Flow Rate 4 06/19/22 06:00 BMI result Body Mass Index 32.1 Const: Other: Constitutional : Awake, interactive, not in distress Neck : Normal inspection, Supple Cardiovascular : RRR, no JVP, trace lower extremity edema Respiratory : good bilateral air entry, basal bilateral crackles more on left, wheezes or rhonchi Gastrointestinal: soft, lax, Normal bowel sounds, Non tender Skin : Warm, Dry Neurological : Alert & oriented x3, No focal deficit General: no acute distress HEENT: Head: Yes normocephalic and Yes atraumatic Resp: Auscultation: diminished lung sounds Cardio: Heart sounds: S1 normal heart sound present and S2 normal heart sound present GI: Palpation (GI): Soft to palpation Extrem: General: Yes edema Psych: Attitude: cooperative Objective Data Labs 06/27/22 06:50 06/27/22 06:50 Labs: Laboratory Results - last 24 hr 06/23/22 06/26/22 06/26/22 13:25 11:27 13:05 WBC RBC Hgb Hct MCV MCH MCHC RDW Plt Count MPV Absolute Nucleated RBC Nucleated RBC % (auto) Sodium Potassium Chloride Carbon Dioxide Anion Gap BUN Creatinine Estim Creat Clear Calc Estimated GFR POC Glucose 319 H Random Glucose Calcium Random Vancomycin 9.5 L DORINDA Screen NEGATIVE 06/26/22 06/26/22 06/27/22 15:34 19:55 06:50 WBC RBC Hgb Hct MCV MCH MCHC RDW Plt Count MPV Absolute Nucleated RBC Nucleated RBC % (auto) Sodium Potassium Chloride Carbon Dioxide Anion Gap BUN Creatinine 3.39 H Estim Creat Clear Calc 28.1 Estimated GFR 19 POC Glucose 415 H* 341 H Random Glucose Calcium Random Vancomycin DORINDA Screen 06/27/22 06/27/22 06/27/22 06:50 06:50 06:57 WBC 11.7 H RBC 3.19 L Hgb 9.3 L Hct 26.9 L MCV 84.3 MCH 29.2 MCHC 34.6 RDW 12.2 Plt Count 286 MPV 10.0 Absolute Nucleated RBC 0.000 Nucleated RBC % (auto) 0.0 Sodium 142 Potassium 3.6 Chloride 108 Carbon Dioxide 22 Anion Gap 16 BUN 97 H Creatinine 3.36 H Estim Creat Clear Calc 28.4 Estimated GFR 19 POC Glucose 126 H Random Glucose 129 H Calcium 9.3 Random Vancomycin DORINDA Screen Microbiology Microbiology Results: Microbiology 06/19/22 06:30 Blood - Venous Blood Culture - Final No growth after 5 days. 06/19/22 06:30 Blood - Venous Blood Culture - Final No growth after 5 days. Procedures Date of Service Date of Service: 06/27/22 Assessment & Plan Assessment and plan (1) Acute on chronic kidney failure: Status: Acute (2) Diarrhea: Status: Acute (3) (HFpEF) heart failure with preserved ejection fraction: Status: Acute (4) Metabolic acidosis: Status: Acute Plan 56-year-old man who is well known to me with a history of chronic kidney disease in the setting of longstanding diabetes mellitus and hypertension. Currently admitted with superimposed acute kidney injury in the setting of diarrhea. Acute kidney injury is most likely due to hypoperfusion from volume depletion secondary to dehydration from diarrhea. Other possibilities including obstructive uropathy ,glomerulonephritis or interstitial nephritis seems unlikely at this point. Mild hyponatremia due to hypovolemia at the time of admission. Serum sodium has improved. Significant metabolic acidosis due to acute kidney injury as well as bicarb losses in the stools Mild anemia without thrombocytopenia creatinine is gradually improving. No overt signs or symptoms of uremia. Recommendations Hold Lasix For now and reassess Concur with current workup No absolute indication for dialysis. Renal function is improving We will follow him closely with the team. Time Spent With Patient Time: Total time managing care of this patient today ____ minutes. Progress Note: Quality Stroke Does the patient have a stroke diagnosis?: No
[2022-06-27 11:08] LABS: Glucose, Whole Blood 264 mg/dL (60-115)
[2022-06-27] MEDS: Insulin Lispro 100 UNIT/ML 3 ML VIAL SUBCUT ×3 (11:54→20:11)
[2022-06-27] MEDS: Acetaminophen 325 MG TABLET 650 MG PO (11:55)
[2022-06-27 12:00] VITALS: BP 154/78; PULSE 88; RESP 18; O2SAT 94
--- NOTE | 2022-06-27 12:21 | HO.PM.IMPN ---
Subjective Subjective Date of Service: 06/27/22 Interval History: overall improving Physical Exam Vital Signs: Vital Signs: Last Vital Signs Temp 97.9 F 06/27/22 07:31 Pulse 88 06/27/22 12:00 Resp 18 06/27/22 12:00 BP 154/78 H 06/27/22 12:00 Pulse Ox 94 06/27/22 12:00 O2 Del Method Nasal Cannula 06/26/22 23:22 O2 Flow Rate 1 06/26/22 23:22 FiO2 35 06/24/22 20:16 Oxygen Flow Rate 4 06/19/22 06:00 BMI result Body Mass Index 32.1 Const: Other: Constitutional : Awake, interactive, not in distress Neck : Normal inspection, Supple Cardiovascular : RRR, no JVP, trace lower extremity edema Respiratory : good bilateral air entry, basal bilateral crackles more on left, wheezes or rhonchi Gastrointestinal: soft, lax, Normal bowel sounds, Non tender Skin : Warm, Dry Neurological : Alert & oriented x3, No focal deficit General: no acute distress HEENT: Head: Yes normocephalic and Yes atraumatic Resp: Auscultation: diminished lung sounds Cardio: Heart sounds: S1 normal heart sound present and S2 normal heart sound present GI: Palpation (GI): Soft to palpation Extrem: General: Yes edema Psych: Attitude: cooperative Objective Data Active Medications Acetaminophen (Acetaminophen 325 Mg Tablet) 650 mg PO Q6H PRN PRN Reason: mild pain Last Admin: 06/27/22 11:55 Dose: 650 mg Documented By: VALENTIN Amlodipine Besylate (Amlodipine Besylate 10 Mg Tablet) 10 mg PO DAILY [facility]; Protocol Last Admin: 06/27/22 09:01 Dose: 10 mg Documented By: VALENTIN Bupropion HCl (Bupropion Hcl Xl 150 Mg Tab.Er.24h) 150 mg PO DAILY [facility] Last Admin: 06/27/22 09:01 Dose: 150 mg Documented By: VALENTIN Clonazepam (Clonazepam 0.5 Mg Tablet) 0.5 mg PO TID PRN PRN Reason: anxiety/restlessness Famotidine (Famotidine 20 Mg Tablet) 10 mg PO DAILY [facility] Last Admin: 06/27/22 09:01 Dose: 10 mg Documented By: VALENTIN Gabapentin (Gabapentin 100 Mg Capsule) 100 mg PO BEDTIME [facility] Last Admin: 06/26/22 20:13 Dose: 100 mg Documented By: DIAZDEM Glucose (Glucose Gel 15 Gm Gel..Gram.) 15 gm PO Q15M PRN; Protocol PRN Reason: per Hypoglycemia Standing Ord. Guaifenesin (Guaifenesin 200 Mg/10 Ml 10 Ml Liquid) 10 ml PO Q4H PRN PRN Reason: Cough Heparin Sodium (Porcine) (Heparin Sodium,Porcine 5,000 Unit/Ml Vial) 5,000 unit SUBCUT Q12H [facility] Last Admin: 06/27/22 11:54 Dose: 5,000 unit Documented By: VALENTIN Hydralazine HCl (Hydralazine Hcl 25 Mg Tablet) 75 mg PO TID [facility]; Protocol Last Admin: 06/27/22 09:00 Dose: 75 mg Documented By: VALENTIN Dextrose (D10) 250 mls @ 750 mls/hr IV Q15M PRN; Protocol PRN Reason: per Hypoglycemia Standing Ord. Piperacillin Sod/Tazobactam (Sod 2.25 gm/ Sodium Chloride) 50 mls @ 100 mls/hr IV Q6H [facility] Last Infusion: 06/27/22 09:29 Dose: 0 mls/hr Documented By: VALENTIN Vancomycin HCl 750 mg/ Sodium (Chloride) 265 mls @ 265 mls/hr IV Q24H [facility] Last Infusion: 06/26/22 16:22 Dose: 0 mls/hr Documented By: SOLISPE Insulin Glargine (Insulin Glargine,Hum.Rec.Anlog 100 Unit/Ml 10 Ml Vial) 70 unit SUBCUT DAILY [facility] Last Admin: 06/27/22 09:02 Dose: 70 unit Documented By: VALENTIN Insulin Human Lispro (Insulin Lispro 100 Unit/Ml 3 Ml Vial) 0 unit SUBCUT QIDACHS [facility]; Protocol Last Admin: 06/27/22 11:54 Dose: 6 unit Documented By: VALENTIN Labetalol HCl (Labetalol Hcl 100 Mg Tablet) 300 mg PO BID [facility] Last Admin: 06/27/22 09:00 Dose: 300 mg Documented By: VALENTIN Meclizine HCl (Meclizine Hcl 25 Mg Tablet) 25 mg PO Q6H PRN PRN Reason: Dizziness Last Admin: 06/26/22 14:16 Dose: 25 mg Documented By: FRANCE Metoclopramide HCl (Metoclopramide Hcl 5 Mg Tablet) 5 mg PO QID [facility] Last Admin: 06/27/22 11:55 Dose: 5 mg Documented By: VALENTIN Multivitamins/Vitamin C (Multivitamin Tablet) 1 tab PO DAILY [facility] Last Admin: 06/27/22 09:01 Dose: 1 tab Documented By: VALENTIN Pharmacy Consult (Consult Rx Vancomycin Dosing) 1 each MISCELLANE DAILY PRN PRN Reason: Consult order Simethicone (Simethicone 80 Mg Tab.Chew) 160 mg PO TID [facility] Last Admin: 06/27/22 08:59 Dose: 160 mg Documented By: VALENTIN Sodium Chloride (0.9 % Sodium Chloride Flush 3 Ml Syringe) 3 ml IVFLUSH QSHIFT [facility] Last Admin: 06/27/22 08:54 Dose: 3 ml Documented By: VALENTIN Trazodone HCl (Trazodone Hcl 50 Mg Tablet) 150 mg PO BEDTIME [facility] Last Admin: 06/26/22 20:12 Dose: 150 mg Documented By: SHAREE Venlafaxine HCl (Venlafaxine Hcl Er 150 Mg Cap.Er.24h) 150 mg PO DAILY [facility] Last Admin: 06/27/22 08:58 Dose: 150 mg Documented By: VALENTIN Vitamin D (Cholecalciferol (Vitamin D3) 25 Mcg Tablet) 50 mcg PO DAILY [facility] Last Admin: 06/27/22 08:58 Dose: 50 mcg Documented By: VALENTIN Labs 06/27/22 06:50 06/27/22 06:50 Labs: Laboratory Results - last 24 hr 06/23/22 06/26/22 06/26/22 13:25 13:05 15:34 MCV MCH MCHC RDW Plt Count MPV Absolute Nucleated RBC Nucleated RBC % (auto) Anion Gap Estim Creat Clear Calc Estimated GFR POC Glucose 415 H* Random Glucose Calcium Random Vancomycin 9.5 L DORINDA Screen NEGATIVE 06/26/22 06/27/22 06/27/22 19:55 06:50 06:50 MCV 84.3 MCH 29.2 MCHC 34.6 RDW 12.2 Plt Count 286 MPV 10.0 Absolute Nucleated RBC 0.000 Nucleated RBC % (auto) 0.0 Anion Gap Estim Creat Clear Calc 28.1 Estimated GFR 19 POC Glucose 341 H Random Glucose Calcium Random Vancomycin DORINDA Screen 06/27/22 06/27/22 06/27/22 06:50 06:57 11:04 MCV MCH MCHC RDW Plt Count MPV Absolute Nucleated RBC Nucleated RBC % (auto) Anion Gap 16 Estim Creat Clear Calc 28.4 Estimated GFR 19 POC Glucose 126 H 264 H Random Glucose 129 H Calcium 9.3 Random Vancomycin DORINDA Screen Assessment and Plan (1) Pulmonary edema: Status: Acute (2) Acute respiratory failure with hypoxia: Status: Acute (3) Metabolic acidosis: Status: Acute (4) Acute on chronic kidney failure: Status: Acute (5) Diarrhea: Status: Acute Plan 56M type 2 diabetes, Yang, hypertension, depression, conversion disorder, chronic constipation, vertigo, CKD stage 3, HFpEF, and obesity?admitted for LEDA, metabolic acidosis, and pneumonia Acute hypoxic respiratory failure 2/2 acute left lower lobe pneumonia with sepsis left basilar opacities possibly infectious versus inflammatory cover with Zosyn and Vancomycin (initiated 06/19), to finish 10 days Abx legionnaire and strep pneumo antigen pending Wean down O2 as tolerated Pulm recommended Steroids for pneumonitis , Day 5 Acute exacerbation of HFpEF now euvolemic stable ECHO hodling [facility] cardiology eval appreciated, no significant fluid overload but keep him dry Noro virus gastroenteritis Positive GI panel for Noro negative C diff panel ondansetron p.r.n. for nausea imodium prn LEDA on CKD IV with acute metabolic acidosis improving, monitor Acute lactic acidosis secondary to tissue hypoperfusion from hypovolemia, not severe sepsis chronic hyponatremia resolved DM2 with hyperglycemia Lantus 50 units daily Humalog on sliding scale POC glucose diabetic diet hold p.o. meds diabetic polyneuropathy continue gabapentin diabetic gastroparesis continue reglan hypertension, uncontrolled Increased HYdralazine to 75 tid Amlodipine 10 mg daily continue labetolol 300 bid depression/anxiety/conversion disorder continue effexor, wellbutrin DVT prophylaxis heparin full code reason for continued hospitalization:hypoxia Time Spent With Patient Time: Total time managing care of this patient today ____ minutes. Quality Stroke Does the patient have a stroke diagnosis?: No VTE Prior VTE?: No VTE Risk Level:: Medical - moderate - high VTE Device Contraindication: Treatment Not Indicated VTE Drug Contraindication: N/A - Med Ordered
[2022-06-27 14:01] LABS: Vancomycin Random 11.3 mcg/mL (15-20)
--- NOTE | 2022-06-27 14:08 | HE.PHANOTE ---
Vancomycin Dosing Addendum Patients level came back this morning at 11.3 mg/L. Level increased after only 1 dose of the increased dose of 750 mg, will continue with 750 mg Q24H. Next draw tomorrow 06/28 @1300 as patients renal function has not stabilized. Predicted AUC 464 mg/L/hr
--- NOTE | 2022-06-27 14:45 | MHC.CM.PN ---
EMR REVIEWED AND PER MD ROUNDS, NOT MEDICALLY CLEARED FOR DC (WEANING OFF 02, IV HEPARIN ) CM WILL CONTINUE TO FOLLOW
[2022-06-27] MEDS: vancomycin HCL 750 MG in 0.9 % Sodium Chloride 250 ML 265 MG IV (15:00)
[2022-06-27 15:23] VITALS: BP 170/84; PULSE 80; RESP 20; TEMP 36.6; O2SAT 97
[2022-06-27] MEDS: Meclizine HCl 25 MG TABLET PO (15:41)
[2022-06-27 16:24] LABS: Glucose, Whole Blood 246 mg/dL (60-115)
[2022-06-27 19:20] VITALS: BP 162/78; PULSE 91; RESP 18; TEMP 37.2; O2SAT 95
[2022-06-27] MEDS: clonazePAM 0.5 MG TABLET PO (19:53)
[2022-06-27] MEDS: Gabapentin 100 MG CAPSULE PO (19:53)
[2022-06-27] MEDS: traZODone HCL 50 MG TABLET 150 MG PO (19:53)
[2022-06-27 20:08] LABS: Glucose, Whole Blood 267 mg/dL (60-115)
[2022-06-27 23:43] VITALS: BP 181/82; PULSE 83; RESP 18; TEMP 36.8; O2SAT 92
[2022-06-28] VITALS (10 sets, daily range): BP systolic 156–186; BP diastolic 60–84; PULSE 82–112; RESP 18–20; TEMP 36.4–36.8; O2SAT 88–97
[2022-06-28 02:39] LABS: Legionella Ag Urine Not Detected (Not Detected)
[2022-06-28] MEDS: Piperacillin Sodium/Tazobactam 2.25 GM in 0.9 % Sodium Chloride 50 ML IV ×2 (03:53→08:32)
[2022-06-28 07:17] LABS: Hematocrit 28.1 % (42.0-52.0); Hemoglobin 9.8 g/dl (14.0-18.0); Mean Corpuscular HGB Conc 34.9 g/dl (31.0-36.0); Mean Corpuscular Hemoglobin 29.9 pg (27.0-33.0); Mean Corpuscular Volume 85.7 fL (80.0-98.0); Mean Platelet Volume 10.1 fL (9.4-12.4); Platelet Count 330 X10*3/uL (160-400); Red Blood Count 3.28 X10*6/uL (4.60-5.80); Red Cell Distribution Width 12.5 % (11.0-16.0)
[2022-06-28 07:30] LABS: Alanine Aminotransferase 64 U/L (0-40); Albumin Level 3.2 g/dL (3.5-5.0); Alkaline Phosphatase 228 U/L (39-117); Anion Gap 14 (12-20); Aspartate Amino Transferase 21 U/L (5-37); Bilirubin Direct 0.2 mg/dL (0.0-0.5); Bilirubin Total 0.5 mg/dL (0.0-1.0); Blood Urea Nitrogen 74 mg/dL (9-16); Calcium 9.2 mg/dL (8.4-10.2); Carbon Dioxide 23 mmol/L (22-29); Chloride 110 mmol/L (96-108); Creatinine Clr Calc Pharmacy 32.6; Estimated Glomerular Filt Rate 22; Glucose Fasting 93 mg/dL (60-99); Magnesium 1.8 mg/dL (1.6-2.6); Potassium 3.7 mmol/L (3.3-5.1); Sodium 143 mmol/L (135-145); Total Protein 6.1 g/dL (6.5-8.0)
[2022-06-28 07:45] LABS: Glucose, Whole Blood 107 mg/dL (60-115)
[2022-06-28] MEDS: 0.9 % Sodium Chloride Flush 3 ML SYRINGE IVFLUSH ×2 (07:50→16:29)
[2022-06-28] MEDS: Cholecalciferol (Vitamin D3) 25 MCG TABLET 50 MCG PO (07:50)
[2022-06-28] MEDS: Insulin Glargine,Hum.rec.anlog 100 UNIT/ML 10 ML VIAL 70 UNIT SUBCUT (07:50)
[2022-06-28] MEDS: Famotidine 20 MG TABLET 10 MG PO (07:50)
[2022-06-28] MEDS: amLODIPine Besylate 10 MG TABLET PO (07:51)
[2022-06-28] MEDS: Venlafaxine HCl ER 150 MG CAP.ER.24H PO (07:51)
[2022-06-28] MEDS: Multivitamin TABLET 1 TAB PO (07:51)
[2022-06-28] MEDS: buPROPion HCl XL 150 MG TAB.ER.24H PO (07:51)
[2022-06-28] MEDS: Metoclopramide HCl 5 MG TABLET PO ×4 (07:51→20:18)
[2022-06-28] MEDS: Labetalol HCL 100 MG TABLET 300 MG PO ×2 (07:51→20:18)
[2022-06-28] MEDS: Simethicone 80 MG TAB.CHEW 160 MG PO ×3 (07:51→20:18)
[2022-06-28] MEDS: hydrALAZINE HCl 50 MG TABLET 100 MG PO ×3 (07:52→20:18)
--- NOTE | 2022-06-28 09:46 | HO.PM.IMPN ---
Subjective Subjective Date of Service: 06/28/22 Interval History: overall improving Physical Exam Vital Signs: Vital Signs: Last Vital Signs Temp 97.6 F 06/28/22 07:31 Pulse 88 06/28/22 07:31 Resp 20 06/28/22 07:31 BP 180/82 H 06/28/22 07:31 Pulse Ox 95 06/28/22 07:31 O2 Del Method Nasal Cannula 06/28/22 07:31 O2 Flow Rate 1 06/28/22 07:31 FiO2 35 06/24/22 20:16 Oxygen Flow Rate 4 06/19/22 06:00 BMI result Body Mass Index 32.1 Const: Other: Constitutional : Awake, interactive, not in distress Neck : Normal inspection, Supple Cardiovascular : RRR, no JVP, trace lower extremity edema Respiratory : good bilateral air entry, basal bilateral crackles more on left, wheezes or rhonchi Gastrointestinal: soft, lax, Normal bowel sounds, Non tender Skin : Warm, Dry Neurological : Alert & oriented x3, No focal deficit General: no acute distress HEENT: Head: Yes normocephalic and Yes atraumatic Resp: Auscultation: diminished lung sounds Cardio: Heart sounds: S1 normal heart sound present and S2 normal heart sound present GI: Palpation (GI): Soft to palpation Extrem: General: Yes edema Psych: Attitude: cooperative Objective Data Active Medications Acetaminophen (Acetaminophen 325 Mg Tablet) 650 mg PO Q6H PRN PRN Reason: mild pain Last Admin: 06/27/22 11:55 Dose: 650 mg Documented By: VALENTIN Amlodipine Besylate (Amlodipine Besylate 10 Mg Tablet) 10 mg PO DAILY [facility]; Protocol Last Admin: 06/28/22 07:51 Dose: 10 mg Documented By: JEAN PAUL Bupropion HCl (Bupropion Hcl Xl 150 Mg Tab.Er.24h) 150 mg PO DAILY [facility] Last Admin: 06/28/22 07:51 Dose: 150 mg Documented By: JEAN PAUL Clonazepam (Clonazepam 0.5 Mg Tablet) 0.5 mg PO TID PRN PRN Reason: anxiety/restlessness Last Admin: 06/27/22 19:53 Dose: 0.5 mg Documented By: ULYSSES Famotidine (Famotidine 20 Mg Tablet) 10 mg PO DAILY [facility] Last Admin: 06/28/22 07:50 Dose: 10 mg Documented By: JEAN PAUL Gabapentin (Gabapentin 100 Mg Capsule) 100 mg PO BEDTIME [facility] Last Admin: 06/27/22 19:53 Dose: 100 mg Documented By: ULYSSES Glucose (Glucose Gel 15 Gm Gel..Gram.) 15 gm PO Q15M PRN; Protocol PRN Reason: per Hypoglycemia Standing Ord. Guaifenesin (Guaifenesin 200 Mg/10 Ml 10 Ml Liquid) 10 ml PO Q4H PRN PRN Reason: Cough Heparin Sodium (Porcine) (Heparin Sodium,Porcine 5,000 Unit/Ml Vial) 5,000 unit SUBCUT Q12H [facility] Last Admin: 06/27/22 23:28 Dose: 5,000 unit Documented By: ULYSSES Hydralazine HCl (Hydralazine Hcl 50 Mg Tablet) 100 mg PO TID [facility]; Protocol Last Admin: 06/28/22 07:52 Dose: 100 mg Documented By: JEAN PAUL Dextrose (D10) 250 mls @ 750 mls/hr IV Q15M PRN; Protocol PRN Reason: per Hypoglycemia Standing Ord. Piperacillin Sod/Tazobactam (Sod 2.25 gm/ Sodium Chloride) 50 mls @ 100 mls/hr IV Q6H [facility] Last Infusion: 06/28/22 09:08 Dose: 0 mls/hr Documented By: KYLIE Vancomycin HCl 750 mg/ Sodium (Chloride) 265 mls @ 265 mls/hr IV Q24H [facility] Last Infusion: 06/27/22 16:11 Dose: 0 mls/hr Documented By: VALENTIN Insulin Glargine (Insulin Glargine,Hum.Rec.Anlog 100 Unit/Ml 10 Ml Vial) 70 unit SUBCUT DAILY [facility] Last Admin: 06/28/22 07:50 Dose: 70 unit Documented By: JEAN PAUL Insulin Human Lispro (Insulin Lispro 100 Unit/Ml 3 Ml Vial) 0 unit SUBCUT QIDACHS [facility]; Protocol Last Admin: 06/28/22 07:46 Dose: Not Given Documented By: JEAN PAUL Non-Admin Reason: No Insulin Coverage Labetalol HCl (Labetalol Hcl 100 Mg Tablet) 300 mg PO BID [facility] Last Admin: 06/28/22 07:51 Dose: 300 mg Documented By: JEAN PAUL Loperamide HCl (Loperamide Hcl 2 Mg Capsule) 2 mg PO Q4H PRN PRN Reason: diarrhea Meclizine HCl (Meclizine Hcl 25 Mg Tablet) 25 mg PO Q6H PRN PRN Reason: Dizziness Last Admin: 06/27/22 15:41 Dose: 25 mg Documented By: GERARD-AUGUSTUS Metoclopramide HCl (Metoclopramide Hcl 5 Mg Tablet) 5 mg PO QID [facility] Last Admin: 06/28/22 07:51 Dose: 5 mg Documented By: JEAN PAUL Multivitamins/Vitamin C (Multivitamin Tablet) 1 tab PO DAILY [facility] Last Admin: 06/28/22 07:51 Dose: 1 tab Documented By: JEAN PAUL Pharmacy Consult (Consult Rx Vancomycin Dosing) 1 each MISCELLANE DAILY PRN PRN Reason: Consult order Simethicone (Simethicone 80 Mg Tab.Chew) 160 mg PO TID [facility] Last Admin: 06/28/22 07:51 Dose: 160 mg Documented By: JEAN PAUL Sodium Chloride (0.9 % Sodium Chloride Flush 3 Ml Syringe) 3 ml IVFLUSH QSHIFT [facility] Last Admin: 06/28/22 07:50 Dose: 3 ml Documented By: JEAN PAUL Trazodone HCl (Trazodone Hcl 50 Mg Tablet) 150 mg PO BEDTIME [facility] Last Admin: 06/27/22 19:53 Dose: 150 mg Documented By: ULYSSES Venlafaxine HCl (Venlafaxine Hcl Er 150 Mg Cap.Er.24h) 150 mg PO DAILY [facility] Last Admin: 06/28/22 07:51 Dose: 150 mg Documented By: JEAN PAUL Vitamin D (Cholecalciferol (Vitamin D3) 25 Mcg Tablet) 50 mcg PO DAILY [facility] Last Admin: 06/28/22 07:50 Dose: 50 mcg Documented By: JEAN PAUL Labs 06/28/22 06:53 06/28/22 06:53 Labs: Laboratory Results - last 24 hr 06/23/22 06/23/22 06/27/22 12:57 13:25 11:04 MCV MCH MCHC RDW Plt Count MPV Absolute Nucleated RBC Nucleated RBC % (auto) Anion Gap Estim Creat Clear Calc Estimated GFR POC Glucose 264 H Fasting Glucose Calcium Magnesium Total Bilirubin Direct Bilirubin AST ALT Alkaline Phosphatase Total Protein Albumin Random Vancomycin DORINDA Titer TNP DORINDA Titer 2 TNP DORINDA Titer 3 TNP DORINDA Pattern TNP DORINDA Pattern 2 TNP DORINDA Pattern 3 TNP Ur L.pneumophila Ag Not Detected 06/27/22 06/27/22 06/27/22 13:28 16:15 20:03 MCV MCH MCHC RDW Plt Count MPV Absolute Nucleated RBC Nucleated RBC % (auto) Anion Gap Estim Creat Clear Calc Estimated GFR POC Glucose 246 H 267 H Fasting Glucose Calcium Magnesium Total Bilirubin Direct Bilirubin AST ALT Alkaline Phosphatase Total Protein Albumin Random Vancomycin 11.3 L DORINDA Titer DORINDA Titer 2 DORINDA Titer 3 DORINDA Pattern DORINDA Pattern 2 DORINDA Pattern 3 Ur L.pneumophila Ag 06/28/22 06/28/22 06/28/22 06:53 06:53 07:29 MCV 85.7 MCH 29.9 MCHC 34.9 RDW 12.5 Plt Count 330 MPV 10.1 Absolute Nucleated RBC 0.000 Nucleated RBC % (auto) 0.0 Anion Gap 14 Estim Creat Clear Calc 32.6 Estimated GFR 22 POC Glucose 107 Fasting Glucose 93 Calcium 9.2 Magnesium 1.8 Total Bilirubin 0.5 Direct Bilirubin 0.2 AST 21 ALT 64 H Alkaline Phosphatase 228 H Total Protein 6.1 L Albumin 3.2 L Random Vancomycin DORINDA Titer DORINDA Titer 2 DORINDA Titer 3 DORINDA Pattern DORINDA Pattern 2 DORINDA Pattern 3 Ur L.pneumophila Ag Assessment and Plan (1) Pulmonary edema: Status: Acute (2) Acute respiratory failure with hypoxia: Status: Acute (3) Metabolic acidosis: Status: Acute (4) Acute on chronic kidney failure: Status: Acute (5) Diarrhea: Status: Acute Plan 56M type 2 diabetes, Yang, hypertension, depression, conversion disorder, chronic constipation, vertigo, CKD stage 3, HFpEF, and obesity?admitted for LEDA, metabolic acidosis, and pneumonia Acute hypoxic respiratory failure 2/2 acute left lower lobe pneumonia with sepsis left basilar opacities possibly infectious versus inflammatory completed 10 days of vanc and zosyn legionnaire and strep pneumo antigen pending Wean down O2 as tolerated Pulm recommended Steroids for pneumonitis , Day 6 Acute exacerbation of HFpEF now euvolemic stable ECHO holding LAsix cardiology eval appreciated, no significant fluid overload but keep him dry Noro virus gastroenteritis Positive GI panel for Noro negative C diff panel ondansetron p.r.n. for nausea imodium prn LEDA on CKD IV with acute metabolic acidosis improving, monitor Acute lactic acidosis secondary to tissue hypoperfusion from hypovolemia, not severe sepsis chronic hyponatremia resolved DM2 with hyperglycemia Lantus 50 units daily Humalog on sliding scale POC glucose diabetic diet hold p.o. meds diabetic polyneuropathy continue gabapentin diabetic gastroparesis continue reglan hypertension, uncontrolled Increased HYdralazine to 100 tid Amlodipine 10 mg daily continue labetolol 300 bid depression/anxiety/conversion disorder continue effexor, wellbutrin DVT prophylaxis heparin full code reason for continued hospitalization:hypoxia Time Spent With Patient Time: Total time managing care of this patient today ____ minutes. Quality Stroke Does the patient have a stroke diagnosis?: No VTE Prior VTE?: No VTE Risk Level:: Medical - moderate - high VTE Device Contraindication: Treatment Not Indicated VTE Drug Contraindication: N/A - Med Ordered
--- NOTE | 2022-06-28 11:09 | PM.PNNEP ---
Subjective Subjective Date of Service: 06/28/22 Interval history: Events noted overall improving Physical Exam Vital Signs: Vital Signs: Last Vital Signs Temp 97.6 F 06/28/22 07:31 Pulse 112 H 06/28/22 10:07 Resp 20 06/28/22 07:31 BP 180/82 H 06/28/22 07:31 Pulse Ox 88 L 06/28/22 10:07 O2 Del Method Nasal Cannula 06/28/22 07:31 O2 Flow Rate 1 06/28/22 07:31 FiO2 35 06/24/22 20:16 Oxygen Flow Rate 4 06/19/22 06:00 BMI result Body Mass Index 32.1 Const: Other: Constitutional : Awake, interactive, not in distress Neck : Normal inspection, Supple Cardiovascular : RRR, no JVP, trace lower extremity edema Respiratory : good bilateral air entry, basal bilateral crackles more on left, wheezes or rhonchi Gastrointestinal: soft, lax, Normal bowel sounds, Non tender Skin : Warm, Dry Neurological : Alert & oriented x3, No focal deficit General: no acute distress HEENT: Head: Yes normocephalic and Yes atraumatic Resp: Auscultation: diminished lung sounds Cardio: Heart sounds: S1 normal heart sound present and S2 normal heart sound present GI: Palpation (GI): Soft to palpation Extrem: General: Yes edema Psych: Attitude: cooperative Objective Data Labs 06/28/22 06:53 06/28/22 06:53 Labs: Laboratory Results - last 24 hr 06/23/22 06/23/22 06/27/22 12:57 13:25 13:28 WBC RBC Hgb Hct MCV MCH MCHC RDW Plt Count MPV Absolute Nucleated RBC Nucleated RBC % (auto) Sodium Potassium Chloride Carbon Dioxide Anion Gap BUN Creatinine Estim Creat Clear Calc Estimated GFR POC Glucose Fasting Glucose Calcium Magnesium Total Bilirubin Direct Bilirubin AST ALT Alkaline Phosphatase Total Protein Albumin Random Vancomycin 11.3 L DORINDA Titer TNP DORINDA Titer 2 TNP DORINDA Titer 3 TNP DORINDA Pattern TNP DORINDA Pattern 2 TNP DORINDA Pattern 3 TNP Ur L.pneumophila Ag Not Detected 06/27/22 06/27/22 06/28/22 16:15 20:03 06:53 WBC RBC Hgb Hct MCV MCH MCHC RDW Plt Count MPV Absolute Nucleated RBC Nucleated RBC % (auto) Sodium 143 Potassium 3.7 Chloride 110 H Carbon Dioxide 23 Anion Gap 14 BUN 74 H Creatinine 2.93 H Estim Creat Clear Calc 32.6 Estimated GFR 22 POC Glucose 246 H 267 H Fasting Glucose 93 Calcium 9.2 Magnesium 1.8 Total Bilirubin 0.5 Direct Bilirubin 0.2 AST 21 ALT 64 H Alkaline Phosphatase 228 H Total Protein 6.1 L Albumin 3.2 L Random Vancomycin DORINDA Titer DORINDA Titer 2 DORINDA Titer 3 DORINDA Pattern DORINDA Pattern 2 DORINDA Pattern 3 Ur L.pneumophila Ag 06/28/22 06/28/22 06:53 07:29 WBC 17.0 H RBC 3.28 L Hgb 9.8 L Hct 28.1 L MCV 85.7 MCH 29.9 MCHC 34.9 RDW 12.5 Plt Count 330 MPV 10.1 Absolute Nucleated RBC 0.000 Nucleated RBC % (auto) 0.0 Sodium Potassium Chloride Carbon Dioxide Anion Gap BUN Creatinine Estim Creat Clear Calc Estimated GFR POC Glucose 107 Fasting Glucose Calcium Magnesium Total Bilirubin Direct Bilirubin AST ALT Alkaline Phosphatase Total Protein Albumin Random Vancomycin DORINDA Titer DORINDA Titer 2 DORINDA Titer 3 DORINDA Pattern DORINDA Pattern 2 DORINDA Pattern 3 Ur L.pneumophila Ag Microbiology Microbiology Results: Microbiology 06/19/22 06:30 Blood - Venous Blood Culture - Final No growth after 5 days. 06/19/22 06:30 Blood - Venous Blood Culture - Final No growth after 5 days. Procedures Date of Service Date of Service: 06/28/22 Assessment & Plan Assessment and plan (1) Acute on chronic kidney failure: Status: Acute (2) Diarrhea: Status: Acute (3) (HFpEF) heart failure with preserved ejection fraction: Status: Acute (4) Metabolic acidosis: Status: Acute Plan 56-year-old man who is well known to me with a history of chronic kidney disease in the setting of longstanding diabetes mellitus and hypertension. Currently admitted with superimposed acute kidney injury in the setting of diarrhea. Acute kidney injury is most likely due to hypoperfusion from volume depletion secondary to dehydration from diarrhea. Other possibilities including obstructive uropathy ,glomerulonephritis or interstitial nephritis seems unlikely at this point. Mild hyponatremia due to hypovolemia at the time of admission. Serum sodium has improved. Significant metabolic acidosis due to acute kidney injury as well as bicarb losses in the stools Mild anemia without thrombocytopenia creatinine is gradually improving. No overt signs or symptoms of uremia. Recommendations Hold Lasix For now and reassess Keep intake more than the output Concur with current management Renal function is improving and close to baseline We will follow him closely with the team. Time Spent With Patient Time: Total time managing care of this patient today ____ minutes. Progress Note: Quality Stroke Does the patient have a stroke diagnosis?: No
[2022-06-28 11:18] LABS: Glucose, Whole Blood 229 mg/dL (60-115)
[2022-06-28] MEDS: Insulin Lispro 100 UNIT/ML 3 ML VIAL SUBCUT ×3 (12:06→20:18)
[2022-06-28] MEDS: Heparin Sodium,Porcine 5,000 UNIT/ML VIAL 5000 UNIT SUBCUT (12:07)
--- NOTE | 2022-06-28 12:13 | PC.NURSE ---
report received from overnight RN. Lennon catheter in place - removed at 1200 for voiding trial per MD verbal orders. Pt tolerated well. safety precautions in place, chair alarm on, call santiago within reach.
[2022-06-28 13:53] LABS: Anti Glomerular Basement Memb <1.0 AI
[2022-06-28 16:18] LABS: Glucose, Whole Blood 161 mg/dL (60-115)
[2022-06-28 16:54] LABS: Strep Pneumo Ag urine Not Detected (Not Detected)
[2022-06-28 20:00] LABS: Glucose, Whole Blood 230 mg/dL (60-115)
[2022-06-28] MEDS: Gabapentin 100 MG CAPSULE PO (20:18)
[2022-06-28] MEDS: traZODone HCL 50 MG TABLET 150 MG PO (20:18)
[2022-06-29] VITALS (7 sets, daily range): BP systolic 132–180; BP diastolic 63–84; PULSE 80–95; RESP 18–20; TEMP 36.6–36.9; O2SAT 93–97
[2022-06-29] MEDS: Heparin Sodium,Porcine 5,000 UNIT/ML VIAL 5000 UNIT SUBCUT ×2 (00:34→11:53)
[2022-06-29] MEDS: 0.9 % Sodium Chloride Flush 3 ML SYRINGE IVFLUSH ×4 (00:36→20:01)
[2022-06-29 06:53] LABS: Hematocrit 28.3 % (42.0-52.0); Hemoglobin 9.9 g/dl (14.0-18.0); Mean Corpuscular Hemoglobin 29.9 pg (27.0-33.0); Mean Corpuscular Volume 85.5 fL (80.0-98.0); Platelet Count 386 X10*3/uL (160-400); Red Blood Count 3.31 X10*6/uL (4.60-5.80); Red Cell Distribution Width 12.6 % (11.0-16.0); White Blood Count 17.4 X10*3/uL (4.8-10.8)
[2022-06-29 07:29] LABS: Glucose, Whole Blood 88 mg/dL (60-115)
[2022-06-29] MEDS: Insulin Glargine,Hum.rec.anlog 100 UNIT/ML 10 ML VIAL 70 UNIT SUBCUT (08:38)
[2022-06-29] MEDS: Venlafaxine HCl ER 150 MG CAP.ER.24H PO (08:38)
[2022-06-29] MEDS: Metoclopramide HCl 5 MG TABLET PO ×4 (08:38→20:04)
[2022-06-29] MEDS: Labetalol HCL 100 MG TABLET 300 MG PO ×2 (08:38→20:03)
[2022-06-29] MEDS: Multivitamin TABLET 1 TAB PO (08:39)
[2022-06-29] MEDS: Simethicone 80 MG TAB.CHEW 160 MG PO ×3 (08:39→20:05)
[2022-06-29] MEDS: hydrALAZINE HCl 50 MG TABLET 100 MG PO ×3 (08:39→20:03)
[2022-06-29] MEDS: amLODIPine Besylate 10 MG TABLET PO (08:39)
[2022-06-29] MEDS: buPROPion HCl XL 150 MG TAB.ER.24H PO (08:39)
[2022-06-29] MEDS: Cholecalciferol (Vitamin D3) 25 MCG TABLET 50 MCG PO (08:39)
[2022-06-29] MEDS: Famotidine 20 MG TABLET 10 MG PO (08:41)
--- NOTE | 2022-06-29 10:46 | PM.PNNEP ---
Subjective Subjective Date of Service: 06/29/22 Interval history: Events noted . All recent data reviewed;BP still high; D/W Med Attending Physical Exam Vital Signs: Vital Signs: Last Vital Signs Temp 98.2 F 06/29/22 07:35 Pulse 92 06/29/22 07:35 Resp 20 06/29/22 07:35 BP 172/84 H 06/29/22 07:35 Pulse Ox 93 06/29/22 07:35 O2 Del Method Room Air 06/29/22 07:35 O2 Flow Rate 1 06/29/22 06:00 FiO2 35 06/24/22 20:16 Oxygen Flow Rate 4 06/19/22 06:00 BMI result Body Mass Index 32.1 Const: General: no acute distress Eyes: EOM: EOMs intact bilaterally Resp: Auscultation: diminished lung sounds Cardio: Rate: regular rate GI: Palpation (GI): Soft to palpation Neuro: General: moves all extremities Objective Data Labs 06/29/22 06:43 06/28/22 06:53 Labs: Laboratory Results - last 24 hr 06/23/22 06/24/22 06/28/22 12:57 08:13 11:13 WBC RBC Hgb Hct MCV MCH MCHC RDW Plt Count MPV Absolute Nucleated RBC Nucleated RBC % (auto) POC Glucose 229 H Glomerular Base Memb Ab <1.0 Ur Strep pneumoniae Ag Not Detected 06/28/22 06/28/22 06/29/22 16:13 19:56 06:43 WBC 17.4 H RBC 3.31 L Hgb 9.9 L Hct 28.3 L MCV 85.5 MCH 29.9 MCHC 35.0 RDW 12.6 Plt Count 386 MPV 10.0 Absolute Nucleated RBC 0.000 Nucleated RBC % (auto) 0.0 POC Glucose 161 H 230 H Glomerular Base Memb Ab Ur Strep pneumoniae Ag 06/29/22 07:25 WBC RBC Hgb Hct MCV MCH MCHC RDW Plt Count MPV Absolute Nucleated RBC Nucleated RBC % (auto) POC Glucose 88 Glomerular Base Memb Ab Ur Strep pneumoniae Ag Microbiology Microbiology Results: Microbiology 06/19/22 06:30 Blood - Venous Blood Culture - Final No growth after 5 days. 06/19/22 06:30 Blood - Venous Blood Culture - Final No growth after 5 days. Procedures Date of Service Date of Service: 06/29/22 Assessment & Plan Assessment and plan (1) Acute on chronic kidney failure: Status: Acute Assessment and Plan: Acute kidney injury is most likely due to tubular injury creatinine improved and stable Could add Imdur 30 mg for better BP control Concur with current management Shall arrange office F/W if D/Jeremie? Progress Note: Quality Stroke Does the patient have a stroke diagnosis?: No
--- NOTE | 2022-06-29 10:49 | PM.DS ---
DS: Providers Provider Date of Service: 06/29/22 Date of admission: 06/19/22 12:24 Primary care physician: Sarthak Spencer MD Consults: 06/19/22 13:34 Consult to Nephrology Routine Consulting Provider: Jos Stevenson Reason for consultation: LEDA, metabolic acidosis 06/22/22 17:08 Consult to Pulmonology Routine Consulting Provider: [facility] Pulmonology Services Reason for consultation: Hypoxic respiratory failure, PNA , CHF? for eval 06/23/22 09:49 Consult to Cardiology Routine Consulting Provider: [facility] Cardiovascular Services Reason for consultation: heart failure exacerbation 06/23/22 12:59 Consult to Critical Care Routine Consulting Provider: Darrel Hoover Reason for consultation: Hypoxic respiratory failure ,concern of ARDS for eval and rec. DS: Diagnosis Discharge Diagnosis (1) Acute on chronic kidney failure: Status: Acute (2) Diarrhea: Status: Acute (3) (HFpEF) heart failure with preserved ejection fraction: Status: Acute (4) Metabolic acidosis: Status: Acute DS: Summary Hospital Course Hospital Course: from initial hpi: Chief Complaint: n/v/d, cough, near syncope 56-year-old male with history of insulin-dependent type 2 diabetes, Yang, hypertension, depression, conversion disorder, chronic constipation, vertigo, CKD stage 3, HFpEF, and obesity?presented to the ED earlier this morning for evaluation of vomiting, diarrhea, and near syncopal episode.? He states yesterday morning has developed recurrent copious watery diarrhea with associated urgency and abdominal pressure.? There has been some fecal incontinence as well.? He has had some chills but denies any fevers.? He denies nausea but did have a single episode of vomiting this morning.? He has also felt weak and this morning while having a bowel movement fell forward to the floor though he denies loss of consciousness or head injury.? He also reports a dry cough that started yesterday afternoon with associated shortness of breath and pleuritic chest pain. He and his son, Mt who is present at bedside, report he has also had decreased coordination of extremities and has fallen over last few weaks and he is reporting neck pain with neck/head often falling in forward flexion. No visual changes, sore throat, headaches, paresthesias, focal weakness. Denies any sick contacts or consumption of bad foods.? No recent travel.? The patient was recently admitted 3 times in the last 2 months for new onset CHF, LEDA, hyponatremia. Was treated with single doses of flagyl and levaquin, but did not receive full course of abx during admissions. On arrival, vital signs stable though low normal oximetry of 91%, placed on 4 L supplemental O2, weaned to 2 L maintaining oximetry 95%.? He has a leukocytosis of 18.7 with left shift.? Worsening renal function with creatinine 5.79, BUN 74.? Sodium 131, potassium 4.6, chloride 94, CO2 18, anion gap 24, glucose 209.? Initial lactic acid 2.6, repeat 3.2 improved to 2.5 following IV NS at 30 cc/kg.? Urinalysis unremarkable.? CXR showing mild hazy left basilar opacities which could be infectious or inflammatory, aspiration possible.? In the ED, treated with IVF and Zosyn. hospital course: Patient was admitted for acute hypoxic respiratory failure secondary to acute left lower lobe pneumonia complicated by sepsis. He was treated with 10 days of vancomycin Zosyn. He was able to be weaned off oxygen. He also received 3 days of steroids for any possible component of acute pneumonitis. Course was complicated by acute on chronic diastolic CHF which was treated with IV Lasix, patient then had acute kidney injury on CKD 4 with acute metabolic acidosis, diuretics was then held and patient received some hydration with improvement. Patient also had GI losses due to norovirus gastroenteritis, was given Imodium as needed. Patient's acute lactic acidosis was due to hypoperfusion from hypovolemia not severe sepsis. Patient's intermittent chronic hyponatremia resolved. For diabetes with hyperglycemia he was given insulin and sugars improved. For diabetic polyneuropathy he was continued on gabapentin. For diabetic gastroparesis use continue on Reglan. For hypertension his blood pressures were still on the high side. He was started on hydralazine and titrated up to 100 mg t.i.d.. He will also be started on Imdur. He will continue on calcium channel ella and labetalol. For mood disorder he was continued on Effexor and Wellbutrin. Patient is feeling better will be discharged to senior living facility for short-term rehab. He is expected to require less than 30 days. Time Spent with Patient Time attestation: Total time managing care of this patient today ____ minutes. Discharge coordination time: Greater than 30 minutes Quality: Safe Use of Opioids Does Pt have an Active Cancer Diagnosis on the Problem List?: No Quality: Stroke Does the patient have a stroke diagnosis?: No Physical Exam Vital Signs: Vital Signs: Last Vital Signs Temp 98.2 F 06/29/22 07:35 Pulse 92 06/29/22 07:35 Resp 20 06/29/22 07:35 BP 172/84 H 06/29/22 07:35 Pulse Ox 93 06/29/22 07:35 O2 Del Method Room Air 06/29/22 07:35 O2 Flow Rate 1 06/29/22 06:00 FiO2 35 06/24/22 20:16 Oxygen Flow Rate 4 06/19/22 06:00 BMI result Body Mass Index 32.1 Const: General: no acute distress Eyes: EOM: EOMs intact bilaterally Resp: Auscultation: diminished lung sounds Cardio: Rate: regular rate GI: Palpation (GI): Soft to palpation Neuro: General: moves all extremities DS: Data Data Completed and Pending Labs on day of discharge: Laboratory Results - last 24 hr 06/23/22 06/24/22 06/28/22 12:57 08:13 11:13 WBC RBC Hgb Hct MCV MCH MCHC RDW Plt Count MPV Absolute Nucleated RBC Nucleated RBC % (auto) POC Glucose 229 H Glomerular Base Memb Ab <1.0 Ur Strep pneumoniae Ag Not Detected 06/28/22 06/28/22 06/29/22 16:13 19:56 06:43 WBC 17.4 H RBC 3.31 L Hgb 9.9 L Hct 28.3 L MCV 85.5 MCH 29.9 MCHC 35.0 RDW 12.6 Plt Count 386 MPV 10.0 Absolute Nucleated RBC 0.000 Nucleated RBC % (auto) 0.0 POC Glucose 161 H 230 H Glomerular Base Memb Ab Ur Strep pneumoniae Ag 06/29/22 07:25 WBC RBC Hgb Hct MCV MCH MCHC RDW Plt Count MPV Absolute Nucleated RBC Nucleated RBC % (auto) POC Glucose 88 Glomerular Base Memb Ab Ur Strep pneumoniae Ag Discharge Plan Discharge Anticipated Discharge Date/Time: 06/29/22 10:44 Patient Disposition: er [facility] Discharge Diagnosis: hypoxia Referrals: [facility], [facility] [Outside] - 1 Week (transfer to [facility] for Short Term Rehab) Sarthak Spencer MD [Primary Care Provider] - 1 Week Discharge Medications: New hydralazine 50 mg Tablet 100 mg PO TID Qty: 0 0RF Protocol: Hold for SBP< HOLD for SBP < : 90 isosorbide mononitrate 30 mg tablet extended release 24 hr 30 mg PO DAILY Qty: 30 0RF Continued clonazepam 0.5 mg tablet 0.5 mg PO TID PRN (Reason: anxiety) Qty: 90 5RF (DME) lancets [FreeStyle Lancets] 28 gauge misc See Rx Instructions .MEDSUPPLY Qty: 150 5RF Rx Instructions: 4 times a day cholecalciferol (vitamin D3) [D3-2000] 50 mcg (2,000 unit) capsule 50 mcg PO DAILY Qty: 30 11RF omega-3 acid ethyl esters 1 gram capsule 2 cap PO BID 30 Days Qty: 120 11RF (DME) FreeStyle John 14 Day Sensor Kit See Rx Instructions .Route Qty: 1 0RF Rx Instructions: As directed Tradjenta 5 mg tablet 5 mg PO DAILY 30 Days Qty: 30 6RF gabapentin 300 mg capsule 300 mg PO BID Qty: 60 8RF (DME) blood pressure monitor [Blood Pressure Kit] Kit See Rx Instructions .Route Qty: 1 0RF Rx Instructions: As directed nifedipine 60 mg tablet extended release 24hr 120 mg PO DAILY 90 Days Qty: 180 1RF venlafaxine 150 mg capsule,extended release 24hr 150 mg PO DAILY meclizine 25 mg tablet 25 mg PO Q6H PRN (Reason: Dizziness) trazodone 150 mg tablet 150 mg PO BEDTIME insulin aspart U-100 [Novolog FlexPen U-100 Insulin] 100 unit/mL (3 mL) insulin pen 14 unit subcut TIDAC bupropion HCl 150 mg tablet extended release 24 hr 150 mg PO DAILY Toujeo Max U-300 SoloStar 300 unit/mL (3 mL) insulin pen 70 unit subcut DAILY Rx Instructions: in the morning torsemide 20 mg tablet 20 mg PO DAILY Qty: 30 0RF (DME) Blood Pressure Cuff Misc See Rx Instructions .Route Qty: 1 0RF Rx Instructions: As directed multivitamin with folic acid [Tab-A-George] 400 mcg tablet 1 tab PO DAILY (DME) pen needle, diabetic [Ultracare Pen Needle] 32 gauge x 3/16 needle See Rx Instructions .ROUTE .MEDSUPPLY Qty: 50 Rx Instructions: As directed famotidine 20 mg tablet 20 mg PO BID Qty: 180 8RF metoclopramide HCl 5 mg tablet 5 mg PO QID Qty: 360 2RF simethicone 180 mg capsule 180 mg PO TID Qty: 90 1RF labetalol 300 mg tablet 300 mg PO BID Qty: 60 3RF (DME) pen needle, diabetic [BD Kacey 2nd Gen Pen Needle] 32 gauge x 5/32 needle See Rx Instructions .MEDSUPPLY Qty: 400 6RF Rx Instructions: 5 times a day Discharge Orders: Discharge Order (Routine); Ordered 06/29/22 Ordered By: Joel Lara Diet: Advance to usual diet Activity on Discharge: As tolerated Stand Alone Forms: Patient Portal Discharge page Care Plan Goals: recovery Health Concerns: hypertension, kidney disease Plan of Treatment: bp meds added, monitor bp, renal fucntion Assessment: see above
--- NOTE | 2022-06-29 10:55 | P.PNIM_ITS ---
Subjective Subjective Date of Service: 06/29/22 Interval History: feeling better Physical Exam Vital Signs: Vital Signs: Last Vital Signs Temp 98.2 F 06/29/22 07:35 Pulse 92 06/29/22 07:35 Resp 20 06/29/22 07:35 BP 172/84 H 06/29/22 07:35 Pulse Ox 93 06/29/22 07:35 O2 Del Method Room Air 06/29/22 07:35 O2 Flow Rate 1 06/29/22 06:00 FiO2 35 06/24/22 20:16 Oxygen Flow Rate 4 06/19/22 06:00 BMI result Body Mass Index 32.1 General: AO X 3, no acute distress Resp: CTA bilateral, no accessory muscles used CVS: S1,S2,RRR GI: soft, non tender, non distended Neuro: motor grossly intact, alert Psych: appropriate affect, appropriate insight Objective Data Active Medications Acetaminophen (Acetaminophen 325 Mg Tablet) 650 mg PO Q6H PRN PRN Reason: mild pain Last Admin: 06/27/22 11:55 Dose: 650 mg Documented By: VALENTIN Amlodipine Besylate (Amlodipine Besylate 10 Mg Tablet) 10 mg PO DAILY [facility]; Protocol Last Admin: 06/29/22 08:39 Dose: 10 mg Documented By: KYLIE Bupropion HCl (Bupropion Hcl Xl 150 Mg Tab.Er.24h) 150 mg PO DAILY [facility] Last Admin: 06/29/22 08:39 Dose: 150 mg Documented By: KYLIE Clonazepam (Clonazepam 0.5 Mg Tablet) 0.5 mg PO TID PRN PRN Reason: anxiety/restlessness Last Admin: 06/27/22 19:53 Dose: 0.5 mg Documented By: ULYSSES Famotidine (Famotidine 20 Mg Tablet) 10 mg PO DAILY [facility] Last Admin: 06/29/22 08:41 Dose: 10 mg Documented By: KYLIE Gabapentin (Gabapentin 100 Mg Capsule) 100 mg PO BEDTIME [facility] Last Admin: 06/28/22 20:18 Dose: 100 mg Documented By: ISSAC Glucose (Glucose Gel 15 Gm Gel..Gram.) 15 gm PO Q15M PRN; Protocol PRN Reason: per Hypoglycemia Standing Ord. Guaifenesin (Guaifenesin 200 Mg/10 Ml 10 Ml Liquid) 10 ml PO Q4H PRN PRN Reason: Cough Heparin Sodium (Porcine) (Heparin Sodium,Porcine 5,000 Unit/Ml Vial) 5,000 unit SUBCUT Q12H [facility] Last Admin: 06/29/22 00:34 Dose: 5,000 unit Documented By: TAMI Hydralazine HCl (Hydralazine Hcl 50 Mg Tablet) 100 mg PO TID [facility]; Protocol Last Admin: 06/29/22 08:39 Dose: 100 mg Documented By: KYLIE Dextrose (D10) 250 mls @ 750 mls/hr IV Q15M PRN; Protocol PRN Reason: per Hypoglycemia Standing Ord. Insulin Glargine (Insulin Glargine,Hum.Rec.Anlog 100 Unit/Ml 10 Ml Vial) 70 unit SUBCUT DAILY [facility] Last Admin: 06/29/22 08:38 Dose: 70 unit Documented By: KYLIE Insulin Human Lispro (Insulin Lispro 100 Unit/Ml 3 Ml Vial) 0 unit SUBCUT QIDACHS [facility]; Protocol Last Admin: 06/29/22 07:45 Dose: Not Given Documented By: KYLIE Non-Admin Reason: No Insulin Coverage Labetalol HCl (Labetalol Hcl 100 Mg Tablet) 300 mg PO BID [facility] Last Admin: 06/29/22 08:38 Dose: 300 mg Documented By: KYLIE Loperamide HCl (Loperamide Hcl 2 Mg Capsule) 2 mg PO Q4H PRN PRN Reason: diarrhea Meclizine HCl (Meclizine Hcl 25 Mg Tablet) 25 mg PO Q6H PRN PRN Reason: Dizziness Last Admin: 06/27/22 15:41 Dose: 25 mg Documented By: YADI Metoclopramide HCl (Metoclopramide Hcl 5 Mg Tablet) 5 mg PO QID [facility] Last Admin: 06/29/22 08:38 Dose: 5 mg Documented By: KYLIE Multivitamins/Vitamin C (Multivitamin Tablet) 1 tab PO DAILY [facility] Last Admin: 06/29/22 08:39 Dose: 1 tab Documented By: KYLIE Simethicone (Simethicone 80 Mg Tab.Chew) 160 mg PO TID [facility] Last Admin: 06/29/22 08:39 Dose: 160 mg Documented By: KYLIE Sodium Chloride (0.9 % Sodium Chloride Flush 3 Ml Syringe) 3 ml IVFLUSH QSHIFT [facility] Last Admin: 06/29/22 08:38 Dose: 3 ml Documented By: KYLIE Trazodone HCl (Trazodone Hcl 50 Mg Tablet) 150 mg PO BEDTIME [facility] Last Admin: 06/28/22 20:18 Dose: 150 mg Documented By: ISSAC Venlafaxine HCl (Venlafaxine Hcl Er 150 Mg Cap.Er.24h) 150 mg PO DAILY [facility] Last Admin: 06/29/22 08:38 Dose: 150 mg Documented By: KYLIE Vitamin D (Cholecalciferol (Vitamin D3) 25 Mcg Tablet) 50 mcg PO DAILY [facility] Last Admin: 06/29/22 08:39 Dose: 50 mcg Documented By: KYLIE Labs 06/29/22 06:43 06/28/22 06:53 Labs: Laboratory Results - last 24 hr 06/23/22 06/24/22 06/28/22 12:57 08:13 11:13 MCV MCH MCHC RDW Plt Count MPV Absolute Nucleated RBC Nucleated RBC % (auto) POC Glucose 229 H Glomerular Base Memb Ab <1.0 Ur Strep pneumoniae Ag Not Detected 06/28/22 06/28/22 06/29/22 16:13 19:56 06:43 MCV 85.5 MCH 29.9 MCHC 35.0 RDW 12.6 Plt Count 386 MPV 10.0 Absolute Nucleated RBC 0.000 Nucleated RBC % (auto) 0.0 POC Glucose 161 H 230 H Glomerular Base Memb Ab Ur Strep pneumoniae Ag 06/29/22 07:25 MCV MCH MCHC RDW Plt Count MPV Absolute Nucleated RBC Nucleated RBC % (auto) POC Glucose 88 Glomerular Base Memb Ab Ur Strep pneumoniae Ag Assessment and Plan (1) Acute respiratory failure with hypoxia: Status: Acute Plan 56M type 2 diabetes, Yang, hypertension, depression, conversion disorder, chronic constipation, vertigo, CKD stage 3, HFpEF, and obesity?admitted for LEDA, metabolic acidosis, and pneumonia Acute hypoxic respiratory failure 2/2 acute left lower lobe pneumonia with sepsis left basilar opacities possibly infectious versus inflammatory completed 10 days of vanc and zosyn legionnaire and strep pneumo antigen pending now on room air Acute exacerbation of HFpEF now euvolemic stable ECHO holding LAsix cardiology eval appreciated, no significant fluid overload but keep him dry Noro virus gastroenteritis Positive GI panel for Noro negative C diff panel ondansetron p.r.n. for nausea imodium prn LEDA on CKD IV with acute metabolic acidosis improving, monitor Acute lactic acidosis secondary to tissue hypoperfusion from hypovolemia, not severe sepsis chronic hyponatremia resolved DM2 with hyperglycemia Lantus 50 units daily Humalog on sliding scale POC glucose diabetic diet hold p.o. meds diabetic polyneuropathy continue gabapentin diabetic gastroparesis continue reglan hypertension, uncontrolled Increased HYdralazine to 100 tid Amlodipine 10 mg daily continue labetolol 300 bid start imdur 30mg daily depression/anxiety/conversion disorder continue effexor, wellbutrin DVT prophylaxis heparin full code reason for continued hospitalization: safe dispo Time Spent With Patient Time: Total time managing care of this patient today ____ minutes. Quality Stroke Does the patient have a stroke diagnosis?: No VTE Prior VTE?: No VTE Risk Level:: Medical - moderate - high VTE Device Contraindication: Treatment Not Indicated VTE Drug Contraindication: N/A - Med Ordered
[2022-06-29 11:00] LABS: Glucose, Whole Blood 240 mg/dL (60-115)
[2022-06-29] MEDS: Insulin Lispro 100 UNIT/ML 3 ML VIAL SUBCUT ×2 (11:52→20:02)
[2022-06-29] MEDS: Meclizine HCl 25 MG TABLET PO (11:56)
[2022-06-29 11:58] LABS: Anion Gap 14 (12-20)
[2022-06-29 12:01] LABS: Blood Urea Nitrogen 55 mg/dL (9-16); Calcium 9.1 mg/dL (8.4-10.2); Carbon Dioxide 22 mmol/L (22-29); Chloride 110 mmol/L (96-108); Creatinine Clr Calc Pharmacy 38.6; Estimated Glomerular Filt Rate 27; Glucose Fasting 81 mg/dL (60-99); Sodium 142 mmol/L (135-145)
--- NOTE | 2022-06-29 14:27 | MHC.CM.PN ---
Addendum entered by Maricarmen Reynoso 06/29/22 16:48: INSURANCE AUTH NOT OBTAINED BY END OF BUSINESS. CM WILL FOLLOW UP IN AM. PT/RN/ AWARE. Original Note: DP: IMM DELIVERED PT HAS BEEN MEDICALLY CLEARED FOR DC TO [facility] PENDING INSURANCE AUTH FOR STR. RN AWARE. AWARE. TRANSPORTATION BOOKED FOR 5 PM [facility]IA [facility]. AWAITING INSURANCE AUTH.
[2022-06-29 16:13] LABS: COVID-19 Test Negative (Negative); IDNOW Serial# 55D5AD1C
[2022-06-29 16:29] LABS: Glucose, Whole Blood 99 mg/dL (60-115)
[2022-06-29 19:50] LABS: Glucose, Whole Blood 194 mg/dL (60-115)
[2022-06-29] MEDS: traZODone HCL 50 MG TABLET 150 MG PO (20:02)
[2022-06-29] MEDS: Gabapentin 100 MG CAPSULE PO (20:04)
[2022-06-29] MEDS: clonazePAM 0.5 MG TABLET PO (20:04)
[2022-06-30 03:00] VITALS: BP 198/84; PULSE 89; RESP 20; TEMP 37.1; O2SAT 97
[2022-06-30] MEDS: Labetalol HCL 100 MG/20 ML VIAL 10 MG IVPUSH (04:43)
[2022-06-30 07:00] VITALS: BP 193/89; PULSE 90; TEMP 36.4; O2SAT 91
[2022-06-30 07:24] LABS: Glucose, Whole Blood 74 mg/dL (60-115)
--- NOTE | 2022-06-30 09:33 | PC.NURSE ---
POC of 74 this morning - reached out to provider to confirm if 70units is the appropriate dose still. MD ordered to decrease dose and give 30units of lantus for now.
[2022-06-30] MEDS: Insulin Glargine,Hum.rec.anlog 100 UNIT/ML 10 ML VIAL 70 UNIT SUBCUT (09:43)
[2022-06-30] MEDS: Famotidine 20 MG TABLET 10 MG PO (09:44)
[2022-06-30] MEDS: Simethicone 80 MG TAB.CHEW 160 MG PO ×2 (09:44→14:07)
[2022-06-30] MEDS: Labetalol HCL 100 MG TABLET 300 MG PO ×2 (09:44→20:00)
[2022-06-30] MEDS: Isosorbide Mononitrate 30 MG TAB.ER.24H PO (09:44)
[2022-06-30] MEDS: hydrALAZINE HCl 50 MG TABLET 100 MG PO ×3 (09:45→20:00)
[2022-06-30] MEDS: amLODIPine Besylate 10 MG TABLET PO (09:45)
[2022-06-30] MEDS: Multivitamin TABLET 1 TAB PO (09:45)
[2022-06-30] MEDS: Cholecalciferol (Vitamin D3) 25 MCG TABLET 50 MCG PO (09:45)
[2022-06-30] MEDS: Venlafaxine HCl ER 150 MG CAP.ER.24H PO (09:45)
[2022-06-30] MEDS: 0.9 % Sodium Chloride Flush 3 ML SYRINGE IVFLUSH ×2 (09:45→16:47)
[2022-06-30] MEDS: Metoclopramide HCl 5 MG TABLET PO ×4 (09:45→20:01)
[2022-06-30] MEDS: buPROPion HCl XL 150 MG TAB.ER.24H PO (09:45)
[2022-06-30 11:00] VITALS: BP 138/69; PULSE 73; RESP 18; TEMP 36.1; O2SAT 97
--- NOTE | 2022-06-30 11:12 | P.PNIM_ITS ---
Subjective Subjective Date of Service: 06/30/22 Interval History: feels well Physical Exam Vital Signs: Vital Signs: Last Vital Signs Temp 97.6 F 06/30/22 07:00 Pulse 90 06/30/22 07:00 Resp 20 06/30/22 03:00 BP 193/89 H 06/30/22 07:00 Pulse Ox 91 L 06/30/22 07:00 O2 Del Method Room Air 06/30/22 07:00 O2 Flow Rate 1 06/29/22 06:00 FiO2 35 06/24/22 20:16 Oxygen Flow Rate 4 06/19/22 06:00 BMI result Body Mass Index 32.1 General: AO X 3, no acute distress Resp: CTA bilateral, no accessory muscles used CVS: S1,S2,RRR GI: soft, non tender, non distended Neuro: motor grossly intact, alert Psych: appropriate affect, appropriate insight Objective Data Active Medications Acetaminophen (Acetaminophen 325 Mg Tablet) 650 mg PO Q6H PRN PRN Reason: mild pain Last Admin: 06/27/22 11:55 Dose: 650 mg Documented By: VALENTIN Amlodipine Besylate (Amlodipine Besylate 10 Mg Tablet) 10 mg PO DAILY [facility]; Protocol Last Admin: 06/30/22 09:45 Dose: 10 mg Documented By: MARIANNE Bupropion HCl (Bupropion Hcl Xl 150 Mg Tab.Er.24h) 150 mg PO DAILY [facility] Last Admin: 06/30/22 09:45 Dose: 150 mg Documented By: MARIANNE Clonazepam (Clonazepam 0.5 Mg Tablet) 0.5 mg PO TID PRN PRN Reason: anxiety/restlessness Last Admin: 06/29/22 20:04 Dose: 0.5 mg Documented By: ULYSSES Famotidine (Famotidine 20 Mg Tablet) 10 mg PO DAILY [facility] Last Admin: 06/30/22 09:44 Dose: 10 mg Documented By: MARIANNE Gabapentin (Gabapentin 100 Mg Capsule) 100 mg PO BEDTIME [facility] Last Admin: 06/29/22 20:04 Dose: 100 mg Documented By: ULYSSES Glucose (Glucose Gel 15 Gm Gel..Gram.) 15 gm PO Q15M PRN; Protocol PRN Reason: per Hypoglycemia Standing Ord. Guaifenesin (Guaifenesin 200 Mg/10 Ml 10 Ml Liquid) 10 ml PO Q4H PRN PRN Reason: Cough Heparin Sodium (Porcine) (Heparin Sodium,Porcine 5,000 Unit/Ml Vial) 5,000 unit SUBCUT Q12H [facility] Last Admin: 06/30/22 00:47 Dose: Not Given Documented By: ULYSSES Non-Admin Reason: Patient Refused Hydralazine HCl (Hydralazine Hcl 50 Mg Tablet) 100 mg PO TID [facility]; Protocol Last Admin: 06/30/22 09:45 Dose: 100 mg Documented By: MARIANNE Dextrose (D10) 250 mls @ 750 mls/hr IV Q15M PRN; Protocol PRN Reason: per Hypoglycemia Standing Ord. Insulin Glargine (Insulin Glargine,Hum.Rec.Anlog 100 Unit/Ml 10 Ml Vial) 70 unit SUBCUT DAILY [facility] Last Admin: 06/30/22 09:43 Dose: 30 unit Documented By: MARIANNE Comments: POC of 74. said to decrease to 30units from 70units. Insulin Human Lispro (Insulin Lispro 100 Unit/Ml 3 Ml Vial) 0 unit SUBCUT QIDACHS [facility]; Protocol Last Admin: 06/30/22 08:05 Dose: Not Given Documented By: MARIANNE Non-Admin Reason: No Insulin Coverage Isosorbide Mononitrate (Isosorbide Mononitrate 30 Mg Tab.Er.24h) 30 mg PO DAILY [facility]; Protocol Last Admin: 06/30/22 09:44 Dose: 30 mg Documented By: MARIANNE Labetalol HCl (Labetalol Hcl 100 Mg Tablet) 300 mg PO BID [facility] Last Admin: 06/30/22 09:44 Dose: 300 mg Documented By: MARIANNE Loperamide HCl (Loperamide Hcl 2 Mg Capsule) 2 mg PO Q4H PRN PRN Reason: diarrhea Meclizine HCl (Meclizine Hcl 25 Mg Tablet) 25 mg PO Q6H PRN PRN Reason: Dizziness Last Admin: 06/29/22 11:56 Dose: 25 mg Documented By: KYLIE Metoclopramide HCl (Metoclopramide Hcl 5 Mg Tablet) 5 mg PO QID [facility] Last Admin: 06/30/22 09:45 Dose: 5 mg Documented By: MARIANNE Multivitamins/Vitamin C (Multivitamin Tablet) 1 tab PO DAILY [facility] Last Admin: 06/30/22 09:45 Dose: 1 tab Documented By: MARIANNE Simethicone (Simethicone 80 Mg Tab.Chew) 160 mg PO TID [facility] Last Admin: 06/30/22 09:44 Dose: 160 mg Documented By: MARIANNE Sodium Chloride (0.9 % Sodium Chloride Flush 3 Ml Syringe) 3 ml IVFLUSH QSHIFT [facility] Last Admin: 06/30/22 09:45 Dose: 3 ml Documented By: MARIANNE Trazodone HCl (Trazodone Hcl 50 Mg Tablet) 150 mg PO BEDTIME [facility] Last Admin: 06/29/22 20:02 Dose: 150 mg Documented By: ULYSSES Venlafaxine HCl (Venlafaxine Hcl Er 150 Mg Cap.Er.24h) 150 mg PO DAILY [facility] Last Admin: 06/30/22 09:45 Dose: 150 mg Documented By: MARIANNE Vitamin D (Cholecalciferol (Vitamin D3) 25 Mcg Tablet) 50 mcg PO DAILY [facility] Last Admin: 06/30/22 09:45 Dose: 50 mcg Documented By: MARIANNE Labs 06/29/22 06:43 06/29/22 08:23 Labs: Laboratory Results - last 24 hr 06/29/22 06/29/22 06/29/22 08:23 15:15 16:18 Anion Gap 14 Estim Creat Clear Calc 38.6 Estimated GFR 27 POC Glucose 99 Fasting Glucose 81 Calcium 9.1 COVID-19 (ANGI) Negative COVID-19 Clin Com See Note 06/29/22 06/30/22 19:46 07:20 Anion Gap Estim Creat Clear Calc Estimated GFR POC Glucose 194 H 74 Fasting Glucose Calcium COVID-19 ([facility]I) COVID-19 Clin Com Assessment and Plan (1) Acute respiratory failure with hypoxia: Status: Acute Plan 56M type 2 diabetes, Yang, hypertension, depression, conversion disorder, chronic constipation, vertigo, CKD stage 3, HFpEF, and obesity?admitted for LEDA, metabolic acidosis, and pneumonia Acute hypoxic respiratory failure 2/2 acute left lower lobe pneumonia with sepsis left basilar opacities possibly infectious versus inflammatory completed 10 days of vanc and zosyn legionnaire and strep pneumo antigen negative now on room air Acute exacerbation of HFpEF now euvolemic stable ECHO holding [facility] cardiology eval appreciated, no significant fluid overload but keep him dry Noro virus gastroenteritis Positive GI panel for Noro negative C diff panel ondansetron p.r.n. for nausea imodium prn LEDA on CKD IV with acute metabolic acidosis improving Acute lactic acidosis secondary to tissue hypoperfusion from hypovolemia, not severe sepsis chronic hyponatremia resolved DM2 with hyperglycemia Lantus 50 units daily Humalog on sliding scale POC glucose diabetic diet hold p.o. meds diabetic polyneuropathy continue gabapentin diabetic gastroparesis continue reglan hypertension, uncontrolled Increased HYdralazine to 100 tid Amlodipine 10 mg daily continue labetolol 300 bid started imdur 30mg daily depression/anxiety/conversion disorder continue effexor, wellbutrin DVT prophylaxis heparin full code reason for continued hospitalization: safe dispo Time Spent With Patient Time: Total time managing care of this patient today ____ minutes. Quality Stroke Does the patient have a stroke diagnosis?: No VTE Prior VTE?: No VTE Risk Level:: Medical - moderate - high VTE Device Contraindication: Treatment Not Indicated VTE Drug Contraindication: N/A - Med Ordered
[2022-06-30 11:34] LABS: Glucose, Whole Blood 165 mg/dL (60-115)
[2022-06-30] MEDS: Insulin Lispro 100 UNIT/ML 3 ML VIAL SUBCUT ×3 (11:42→20:03)
[2022-06-30] MEDS: Heparin Sodium,Porcine 5,000 UNIT/ML VIAL 5000 UNIT SUBCUT (11:42)
[2022-06-30] MEDS: Acetaminophen 325 MG TABLET 650 MG PO (14:06)
--- NOTE | 2022-06-30 14:43 | PM.PNNEP ---
Subjective Subjective Date of Service: 06/30/22 Interval history: feels well. All recent data reviewed Physical Exam Vital Signs: Vital Signs: Last Vital Signs Temp 97.0 F 06/30/22 11:00 Pulse 73 06/30/22 11:00 Resp 18 06/30/22 11:00 BP 138/69 06/30/22 11:00 Pulse Ox 97 06/30/22 11:00 O2 Del Method Room Air 06/30/22 11:00 O2 Flow Rate 1 06/29/22 06:00 FiO2 35 06/24/22 20:16 Oxygen Flow Rate 4 06/19/22 06:00 BMI result Body Mass Index 32.1 Const: General: alert Eyes: EOM: EOMs intact bilaterally Resp: Auscultation: diminished lung sounds Cardio: Rate: regular rate GI: Palpation (GI): Soft to palpation Neuro: General: moves all extremities Objective Data Labs 06/29/22 06:43 06/29/22 08:23 Labs: Laboratory Results - last 24 hr 06/29/22 06/29/22 06/29/22 15:15 16:18 19:46 POC Glucose 99 194 H COVID-19 (ANGI) Negative COVID-19 Clin Com See Note 06/30/22 06/30/22 07:20 11:31 POC Glucose 74 165 H COVID-19 (ANGI) COVID-19 Clin Com Microbiology Microbiology Results: Microbiology 06/19/22 06:30 Blood - Venous Blood Culture - Final No growth after 5 days. 06/19/22 06:30 Blood - Venous Blood Culture - Final No growth after 5 days. Procedures Date of Service Date of Service: 06/30/22 Assessment & Plan Assessment and plan (1) Acute on chronic kidney failure: Status: Acute Assessment and Plan: Acute kidney injury is most likely due to tubular injury creatinine improved and stable Could increase Imdur for better BP control Concur with current management Shall arrange office F/W if D/Jeremie Progress Note: Quality Stroke Does the patient have a stroke diagnosis?: No
[2022-06-30 15:46] VITALS: BP 160/71; PULSE 82; RESP 14; TEMP 36.9; O2SAT 96
--- NOTE | 2022-06-30 15:57 | MHC.CM.PN ---
CM CONTINUES TO AWAIT AUTH FROM [facility] FOR PLACEMENT AT [facility].
[2022-06-30 16:17] LABS: Glucose, Whole Blood 154 mg/dL (60-115)
[2022-06-30 19:28] VITALS: BP 172/70; PULSE 98; RESP 14; TEMP 36.4; O2SAT 93
[2022-06-30] MEDS: Gabapentin 100 MG CAPSULE PO (20:00)
[2022-06-30] MEDS: clonazePAM 0.5 MG TABLET PO (20:01)
[2022-06-30] MEDS: traZODone HCL 50 MG TABLET 150 MG PO (20:01)
[2022-06-30 20:15] LABS: Glucose, Whole Blood 213 mg/dL (60-115)
[2022-07-01] MEDS: Heparin Sodium,Porcine 5,000 UNIT/ML VIAL 5000 UNIT SUBCUT ×2 (01:36→12:13)
[2022-07-01 03:00] VITALS: BP 126/68; PULSE 80; RESP 20; TEMP 36.1; O2SAT 93
[2022-07-01 07:00] VITALS: BP 135/68; PULSE 75; RESP 18; TEMP 36.2; O2SAT 98
[2022-07-01 07:51] LABS: Glucose, Whole Blood 119 mg/dL (60-115)
[2022-07-01] MEDS: Cholecalciferol (Vitamin D3) 25 MCG TABLET 50 MCG PO (09:31)
[2022-07-01] MEDS: Simethicone 80 MG TAB.CHEW 160 MG PO (09:31)
[2022-07-01] MEDS: Isosorbide Mononitrate 30 MG TAB.ER.24H PO (09:31)
[2022-07-01] MEDS: hydrALAZINE HCl 50 MG TABLET 100 MG PO (09:32)
[2022-07-01] MEDS: Labetalol HCL 100 MG TABLET 300 MG PO (09:32)
[2022-07-01] MEDS: amLODIPine Besylate 10 MG TABLET PO (09:32)
[2022-07-01] MEDS: Metoclopramide HCl 5 MG TABLET PO ×2 (09:32→12:14)
[2022-07-01] MEDS: buPROPion HCl XL 150 MG TAB.ER.24H PO (09:32)
[2022-07-01] MEDS: Venlafaxine HCl ER 150 MG CAP.ER.24H PO (09:32)
[2022-07-01] MEDS: Famotidine 20 MG TABLET 10 MG PO (09:32)
[2022-07-01] MEDS: Multivitamin TABLET 1 TAB PO (09:32)
[2022-07-01] MEDS: 0.9 % Sodium Chloride Flush 3 ML SYRINGE IVFLUSH (09:35)
[2022-07-01] MEDS: Insulin Glargine,Hum.rec.anlog 100 UNIT/ML 10 ML VIAL 70 UNIT SUBCUT (09:37)
--- NOTE | 2022-07-01 10:27 | P.PNIM_ITS ---
Subjective Subjective Date of Service: 07/01/22 Interval History: feels well Physical Exam Vital Signs: Vital Signs: Last Vital Signs Temp 97.2 F 07/01/22 07:00 Pulse 75 07/01/22 07:00 Resp 18 07/01/22 07:00 BP 135/68 07/01/22 07:00 Pulse Ox 98 07/01/22 07:00 O2 Del Method Room Air 07/01/22 07:00 O2 Flow Rate 1 06/29/22 06:00 FiO2 35 06/24/22 20:16 Oxygen Flow Rate 4 06/19/22 06:00 BMI result Body Mass Index 32.1 Const: General: alert Eyes: EOM: EOMs intact bilaterally Resp: Auscultation: diminished lung sounds Cardio: Rate: regular rate GI: Palpation (GI): Soft to palpation Neuro: General: moves all extremities Objective Data Active Medications Acetaminophen (Acetaminophen 325 Mg Tablet) 650 mg PO Q6H PRN PRN Reason: mild pain Last Admin: 06/30/22 14:06 Dose: 650 mg Documented By: MARIANNE Amlodipine Besylate (Amlodipine Besylate 10 Mg Tablet) 10 mg PO DAILY [facility]; Protocol Last Admin: 07/01/22 09:32 Dose: 10 mg Documented By: MARIANO Bupropion HCl (Bupropion Hcl Xl 150 Mg Tab.Er.24h) 150 mg PO DAILY [facility] Last Admin: 07/01/22 09:32 Dose: 150 mg Documented By: MARIANO Famotidine (Famotidine 20 Mg Tablet) 10 mg PO DAILY [facility] Last Admin: 07/01/22 09:32 Dose: 10 mg Documented By: MARIANO Gabapentin (Gabapentin 100 Mg Capsule) 100 mg PO BEDTIME [facility] Last Admin: 06/30/22 20:00 Dose: 100 mg Documented By: ULYSSES Glucose (Glucose Gel 15 Gm Gel..Gram.) 15 gm PO Q15M PRN; Protocol PRN Reason: per Hypoglycemia Standing Ord. Guaifenesin (Guaifenesin 200 Mg/10 Ml 10 Ml Liquid) 10 ml PO Q4H PRN PRN Reason: Cough Heparin Sodium (Porcine) (Heparin Sodium,Porcine 5,000 Unit/Ml Vial) 5,000 unit SUBCUT Q12H [facility] Last Admin: 07/01/22 01:36 Dose: 5,000 unit Documented By: ULYSSES Hydralazine HCl (Hydralazine Hcl 50 Mg Tablet) 100 mg PO TID [facility]; Protocol Last Admin: 07/01/22 09:32 Dose: 100 mg Documented By: MARIANO Dextrose (D10) 250 mls @ 750 mls/hr IV Q15M PRN; Protocol PRN Reason: per Hypoglycemia Standing Ord. Insulin Glargine (Insulin Glargine,Hum.Rec.Anlog 100 Unit/Ml 10 Ml Vial) 70 unit SUBCUT DAILY [facility] Last Admin: 07/01/22 09:37 Dose: 30 unit Documented By: MARIANO Comments: PER MD DR QUEZADA -30 UNITS Insulin Human Lispro (Insulin Lispro 100 Unit/Ml 3 Ml Vial) 0 unit SUBCUT QIDACHS [facility]; Protocol Last Admin: 07/01/22 08:02 Dose: Not Given Documented By: MARIANNE Non-Admin Reason: No Insulin Coverage Isosorbide Mononitrate (Isosorbide Mononitrate 30 Mg Tab.Er.24h) 30 mg PO DAILY [facility]; Protocol Last Admin: 07/01/22 09:31 Dose: 30 mg Documented By: MARIANO Labetalol HCl (Labetalol Hcl 100 Mg Tablet) 300 mg PO BID [facility] Last Admin: 07/01/22 09:32 Dose: 300 mg Documented By: MARIANO Loperamide HCl (Loperamide Hcl 2 Mg Capsule) 2 mg PO Q4H PRN PRN Reason: diarrhea Meclizine HCl (Meclizine Hcl 25 Mg Tablet) 25 mg PO Q6H PRN PRN Reason: Dizziness Last Admin: 06/29/22 11:56 Dose: 25 mg Documented By: KYLIE Metoclopramide HCl (Metoclopramide Hcl 5 Mg Tablet) 5 mg PO QID [facility] Last Admin: 07/01/22 09:32 Dose: 5 mg Documented By: MARIANO Multivitamins/Vitamin C (Multivitamin Tablet) 1 tab PO DAILY [facility] Last Admin: 07/01/22 09:32 Dose: 1 tab Documented By: MARIANO Simethicone (Simethicone 80 Mg Tab.Chew) 160 mg PO TID [facility] Last Admin: 07/01/22 09:31 Dose: 160 mg Documented By: MARIANO Sodium Chloride (0.9 % Sodium Chloride Flush 3 Ml Syringe) 3 ml IVFLUSH QSHIFT [facility] Last Admin: 07/01/22 09:35 Dose: 3 ml Documented By: MARIANO Trazodone HCl (Trazodone Hcl 50 Mg Tablet) 150 mg PO BEDTIME [facility] Last Admin: 06/30/22 20:01 Dose: 150 mg Documented By: ULYSSES Venlafaxine HCl (Venlafaxine Hcl Er 150 Mg Cap.Er.24h) 150 mg PO DAILY [facility] Last Admin: 07/01/22 09:32 Dose: 150 mg Documented By: MARIANO Vitamin D (Cholecalciferol (Vitamin D3) 25 Mcg Tablet) 50 mcg PO DAILY [facility] Last Admin: 07/01/22 09:31 Dose: 50 mcg Documented By: MARIANO Labs 06/29/22 06:43 06/29/22 08:23 Labs: Laboratory Results - last 24 hr 06/30/22 06/30/22 06/30/22 11:31 16:13 19:58 POC Glucose 165 H 154 H 213 H 07/01/22 07:43 POC Glucose 119 H Assessment and Plan (1) Acute respiratory failure with hypoxia: Status: Acute Plan 56M type 2 diabetes, Yang, hypertension, depression, conversion disorder, chronic constipation, vertigo, CKD stage 3, HFpEF, and obesity?admitted for LEDA, metabolic acidosis, and pneumonia Acute hypoxic respiratory failure 2/2 acute left lower lobe pneumonia with sepsis left basilar opacities possibly infectious versus inflammatory completed 10 days of vanc and zosyn legionnaire and strep pneumo antigen negative now on room air Acute exacerbation of HFpEF now euvolemic stable ECHO holding L[facility] cardiology eval appreciated, no significant fluid overload but keep him dry Noro virus gastroenteritis Positive GI panel for Noro negative C diff panel ondansetron p.r.n. for nausea imodium prn LEDA on CKD IV with acute metabolic acidosis improving Acute lactic acidosis secondary to tissue hypoperfusion from hypovolemia, not severe sepsis chronic hyponatremia resolved DM2 with hyperglycemia Lantus 50 units daily Humalog on sliding scale POC glucose diabetic diet hold p.o. meds diabetic polyneuropathy continue gabapentin diabetic gastroparesis continue reglan hypertension, uncontrolled Increased HYdralazine to 100 tid Amlodipine 10 mg daily continue labetolol 300 bid started imdur 30mg daily depression/anxiety/conversion disorder continue effexor, wellbutrin DVT prophylaxis heparin full code reason for continued hospitalization: safe dispo Time Spent With Patient Time: Total time managing care of this patient today ____ minutes. Quality Stroke Does the patient have a stroke diagnosis?: No VTE Prior VTE?: No VTE Risk Level:: Medical - moderate - high VTE Device Contraindication: Treatment Not Indicated VTE Drug Contraindication: N/A - Med Ordered
--- NOTE | 2022-07-01 10:30 | PC.NURSE ---
poc of 119, reached out to provider if still want 70units of lantus. provider said to give 30units instead.
[2022-07-01 11:00] VITALS: BP 141/68; PULSE 77; RESP 20; TEMP 36.6; O2SAT 95
--- NOTE | 2022-07-01 11:10 | PM.PNNEP ---
Subjective Subjective Date of Service: 07/01/22 Interval history: feels well. All recent data reviewed. BP better controlled Physical Exam Vital Signs: Vital Signs: Last Vital Signs Temp 97.2 F 07/01/22 07:00 Pulse 75 07/01/22 07:00 Resp 18 07/01/22 07:00 BP 135/68 07/01/22 07:00 Pulse Ox 98 07/01/22 07:00 O2 Del Method Room Air 07/01/22 07:00 O2 Flow Rate 1 06/29/22 06:00 FiO2 35 06/24/22 20:16 Oxygen Flow Rate 4 06/19/22 06:00 BMI result Body Mass Index 32.1 Const: General: no acute distress Eyes: EOM: EOMs intact bilaterally Neck: Neck: Yes supple Resp: Auscultation: diminished lung sounds Cardio: Rate: regular rate GI: Palpation (GI): Soft to palpation Neuro: General: moves all extremities Objective Data Labs 06/29/22 06:43 06/29/22 08:23 Labs: Laboratory Results - last 24 hr 06/30/22 06/30/22 06/30/22 11:31 16:13 19:58 POC Glucose 165 H 154 H 213 H 07/01/22 07:43 POC Glucose 119 H Microbiology Microbiology Results: Microbiology 06/19/22 06:30 Blood - Venous Blood Culture - Final No growth after 5 days. 06/19/22 06:30 Blood - Venous Blood Culture - Final No growth after 5 days. Procedures Date of Service Date of Service: 07/01/22 Assessment & Plan Assessment and plan (1) Acute on chronic kidney failure: Status: Acute Assessment and Plan: Acute kidney injury is most likely due to tubular injury creatinine improved and stable BP better after medication adjustment Concur with current management Shall arrange office F/W if D/Jeremie Progress Note: Quality Stroke Does the patient have a stroke diagnosis?: No
[2022-07-01 11:31] LABS: Glucose, Whole Blood 188 mg/dL (60-115)
--- NOTE | 2022-07-01 11:59 | MHC.CM.PN ---
DP: PT IS MEDICALLY CLEARED FOR DC TO [facility], [facility] HAS OBTAINED INSURANCE AUTH AND TRANSPORT BOOKED FOR 1 PM VIA [place]. RN AWARE. AWARE. DAUGHTER JUNIOR NOTIFIED OF TRANSFER VIA .
[2022-07-01] MEDS: Insulin Lispro 100 UNIT/ML 3 ML VIAL SUBCUT (12:12)
[2022-07-01] MEDS: Acetaminophen 325 MG TABLET 650 MG PO (12:13)
--- NOTE | 2022-07-01 13:12 | PC.NURSE ---
pt A&O, vitals stable, IVs out, monitor off. report given to EMS. EMS to transport pt to recieving facility. will call to do nurse to nurse report.
== END 2022-07-01 13:14 | disposition skilled nursing facility (03) | DRG 871 ==
LOC: HO.ED 06:34 → HO.EDOVER 12:32 → HO.IMC 18:18
PROVIDERS: Hospitalist; Internal Medicine Pulmonary Disease; Student in an Organized Health Care Education/Training Program; Admitting Provider Physician Assistant; Emergency Provider Emergency Medicine Emergency Medical Services; PCP Internal Medicine; Visit Provider Internal Medicine
DX: A41.9 Sepsis, unspecified organism (principal); I50.33 Acute on chronic diastolic (congestive) heart failure; J96.01 Acute respiratory failure with hypoxia; J18.9 Pneumonia, unspecified organism; A08.11 Acute gastroenteropathy due to Norwalk agent; I13.0 Hypertensive heart and chronic kidney disease with heart failure and stage 1 through stage 4 chronic kidney disease, or unspecified chronic kidney disease; N17.9 Acute kidney failure, unspecified; E87.21 Acute metabolic acidosis; E87.1 Hypo-osmolality and hyponatremia; E86.0 Dehydration; E11.22 Type 2 diabetes mellitus with diabetic chronic kidney disease; E11.42 Type 2 diabetes mellitus with diabetic polyneuropathy; E11.43 Type 2 diabetes mellitus with diabetic autonomic (poly)neuropathy; K75.81 Nonalcoholic steatohepatitis (NASH); D63.1 Anemia in chronic kidney disease; Z66 Do not resuscitate; Z68.32 Body mass index [BMI] 32.0-32.9, adult; I70.1 Atherosclerosis of renal artery; N18.30 Chronic kidney disease, stage 3 unspecified; K31.84 Gastroparesis; F41.9 Anxiety disorder, unspecified; F32.A Depression, unspecified; Z20.822 Contact with and (suspected) exposure to COVID-19; Z88.1 Allergy status to other antibiotic agents; Z88.8 Allergy status to other drugs, medicaments and biological substances; Z79.4 Long term (current) use of insulin; Z79.899 Other long term (current) drug therapy
CPT/HCPCS: 0241U; 36415; 71045; 74018; 80048; 80053; 80076; 80202; 81001; 82565; 82784; 82785; 82803; 82947; 83520; 83605; 83615; 83690; 83735; 83880; 84484; 85025; 85027; 85610; 85652; 85730; 86021; 86038; 86039; 86200; 87040; 87389; 87449; 87493; 87502; 87507; 87633; 87635; 87899; 93005; 93308; 97110; 97116; 97162; 97530; 99285; C1758; J0456; J1643; J1940; J2543; J2920; J3370; P9047

== ENCOUNTER 2022-07-19 09:25 | Emergency (ER) | payer OTHER, SELFPAY ==
--- NOTE | ~2022-07-19 | XR_ITS ---
EXAMINATION: XR CHEST CLINICAL INFORMATION: Resolved chest pain COMPARISON: 06/26/2022 TECHNIQUE: Frontal view of the chest was obtained. FINDINGS: Cardiac leads overlie the chest. The lungs are well expanded. Significant improvement of the prior airspace opacities. Minimal residual hazy left basilar opacity. No pleural effusion or pneumothorax. The cardiomediastinal silhouette is within normal limits. XR/XR chest 1V IMPRESSION: Significant improvement of the prior airspace opacities. Minimal residual hazy left basilar opacity noted.
[2022-07-19 09:32] VITALS: BP 180/120
[2022-07-19 09:35] VITALS: BP 178/87; PULSE 84; RESP 10; TEMP 37.4; O2SAT 96
[2022-07-19 09:36] VITALS: BMI 31.4
--- NOTE | 2022-07-19 09:42 | ECG_ITS ---
Test Reason : CHEST PAIN Blood Pressure : / mmHG Vent. Rate : 081 BPM Atrial Rate : 081 BPM P-R Int : 142 ms QRS Dur : 078 ms QT Int : 376 ms P-R-T Axes : 046 006 053 degrees QTc Int : 436 ms Normal sinus rhythm Minimal voltage criteria for LVH, may be normal variant ( R in aVL ) Borderline ECG When compared with ECG of 23-JUN-2022 14:31, No significant change was found Referred By: Marvin Sanchez Electronically Signed By:KATHERINE SMITH
[2022-07-19] MEDS: hydrALAZINE HCl 50 MG TABLET PO (10:32)
--- NOTE | 2022-07-19 10:50 | ED_ITS ---
HPI - General Adult General Chief complaint: General Medical Stated complaint: CHEST PAIN,HIGH BP 185/128 PER EMS Time Seen by Provider: 07/19/22 09:39 Source: patient Mode of arrival: ambulatory Limitations: no limitations History of Present Illness HPI narrative: 56 yold male with pmh of CKD, Heart Failure, Veritgo, DM, HLD presents to the ED for evaluation of resolved chest pain. Patient states he had chest pain 1 hour before coming to the ER that resolved on its own. Patient presently asymptomatic. Patient states his blood pressure is elevated because he last took his meds 2 days ago. Patient denies any headache, nausea, vomiting, dizziness, slurred speech, facial droop, paralysis of extremities, swelling of extremities. Patient denies leg swellings, calf pain, coughing up blood, pleurisy, estrogen hormone use, recent long travel, or recent surgery. Related Data Home Medications Medication Instructions Recorded Confirmed venlafaxine 150 mg 150 mg PO DAILY 10/30/21 06/19/22 capsule,extended release 24 hr multivitamin with folic acid 400 1 tab PO DAILY 03/06/22 06/19/22 mcg tablet (Tab-A-George) pen needle, diabetic 32 gauge x #50 ea 03/06/22 06/02/2206/14 (Ultracare Pen Needle) bupropion HCl 150 mg 24 hr tablet, 150 mg PO DAILY 05/16/22 06/19/22 extended release insulin aspart U-100 100 unit/mL 14 unit subcut TIDAC 05/16/22 06/19/22 (3 mL) subcutaneous pen (Novolog FlexPen U-100 Insulin aspart) insulin glargine U-300 conc 300 70 unit subcut DAILY 05/16/22 06/19/22 unit/mL (3 mL) subcutaneous pen (Toujeo Max U-300 SoloStar) meclizine 25 mg tablet 25 mg PO Q6H PRN Dizziness 05/16/22 06/19/22 trazodone 150 mg tablet 150 mg PO BEDTIME 05/16/22 06/19/22 Previous Rx's Medication Instructions Recorded clonazepam 0.5 mg tablet 0.5 mg PO TID PRN anxiety #90 tabs 01/31/21 lancets 28 gauge (FreeStyle #150 ea 05/12/21 Lancets) miscellaneous medical supply #1 ea 05/25/21 (Blood Pressure Cuff) pen needle, diabetic 32 gauge x #400 ea 08/11/21 (BD Kacey 2nd Gen Pen Needle) cholecalciferol (vitamin D3) 50 50 mcg PO DAILY #30 caps 08/30/21 mcg (2,000 unit) capsule (D3-2000) omega-3 acid ethyl esters 1 gram 2 cap PO BID 30 days #120 caps 09/04/21 capsule flash glucose sensor (FreeStyle #1 ea 04/10/22 John 14 Day Sensor kit) famotidine 20 mg tablet 20 mg PO BID #180 tabs 05/01/22 metoclopramide HCl 5 mg tablet 5 mg PO QID #360 tabs 05/01/22 simethicone 180 mg capsule 180 mg PO TID #90 caps 05/01/22 linagliptin 5 mg tablet (Tradjenta) 5 mg PO DAILY 30 days #30 tabs 05/16/22 torsemide 20 mg tablet 20 mg PO DAILY #30 tabs 06/04/22 gabapentin 300 mg capsule 300 mg PO BID #60 caps 06/07/22 labetalol 300 mg tablet 300 mg PO BID #60 tabs 06/11/22 blood pressure monitor (Blood #1 ea 06/12/22 Pressure Kit) nifedipine 60 mg tablet,extended 120 mg PO DAILY 90 days #180 tabs 06/13/22 release 24 hr isosorbide mononitrate 30 mg 30 mg PO DAILY #30 tabs 06/29/22 tablet,extended release 24 hr hydralazine 50 mg tablet 100 mg PO TID #90 tabs 07/19/22 Allergies Allergy/AdvReac Type Severity Reaction Status Date / Time cephalexin [From KEFLEX] Allergy Mild ITCHY Verified 05/31/22 14:14 THROAT lisinopril [LISINOPRIL] Allergy Unknown SWELLING Verified 05/31/22 14:14 COUGH Review of Systems Review of Systems: Resolved chest pain. Yes all other systems are reviewed and are negative [facility] Past Medical History Medical History Acute hyponatremia Anxiety Chronic hyperglycemia CKD (chronic kidney disease) CKD (chronic kidney disease) CKD (chronic kidney disease) stage 3, GFR 30-59 ml/min CKD (chronic kidney disease) stage 4, GFR 15-29 ml/min Depression Diabetes Diabetes mellitus with coincident hypertension Diabetes type 2, uncontrolled Diabetic nephropathy associated with type 2 diabetes mellitus Diabetic neuropathy associated with type 2 diabetes mellitus Dyslipidemia Essential hypertension GERD (gastroesophageal reflux disease) Hepatitis High cholesterol Hypercalcemia Hyperlipidemia Hypertension half-way (current) use of insulin Metabolic acidosis Neuropathy New onset of congestive heart failure Obesity Obesity (BMI 30-39.9) Severe depression Sleep apnea Type 2 diabetes mellitus with obesity Vitamin D deficiency Surgical History H/O colonoscopy History of esophagogastroduodenoscopy (EGD) Hx of arthroscopy of knee Hx of arthroscopy of right knee Family History Family History Father Diabetes Mother No problems noted. Social History Social History Household Members: Family Household Members Other:: SISTER Housing: Apartment Do you presently have visiting nurse or other home services: Yes Alcohol intake: never Patient Tobacco Use Status: Never used Tobacco e-Cigarette/Vaping Use: Never Used Second Hand Smoke Exposure: Yes (HISTORY OF SECOND HAND SMOKE EXPOSURE) Advance Directives: Yes Advance Directives on File: Yes Advance Directives Date on File: 05/05/20 service: No Current occupational status: disabled Current occupation: right handed Cognitive needs: No Hearing needs: No Vision needs: No Physical Exam ED Vital Signs: Vital Signs - 24 hr 07/19/22 09:35 07/19/22 11:54 07/19/22 12:31 Temperature 99.3 F Pulse Rate 84 80 79 Respiratory Rate 10 L 14 13 Blood Pressure 178/87 H 187/90 H 187/89 H Pulse Oximetry 96 93 99 Oxygen Delivery Method Room Air Room Air Room Air 07/19/22 14:30 Temperature Pulse Rate 68 Respiratory Rate 16 Blood Pressure 163/71 H Pulse Oximetry 99 Oxygen Delivery Method Room Air BMI result Body Mass Index 31.4 Const General: cooperative, healthy appearing, comfortable, no acute distress, well d eveloped, alert, awake and Physically active Orientation/consciousness: oriented to person, oriented to place, oriented to time and patient oriented x3 HENMT Head: Yes normal to inspection, Yes No palpable skull fracture present, Yes normocephalic, Yes atraumatic and No abrasion Eyes General: appearance normal, both eyes and all related structures Neck Neck: Yes normal visual inspection, Yes full ROM, Yes no lymphadenopathy, Yes no meningeal signs, Yes trachea midline, Yes supple and No anterior neck swelling Chest Chest palpation & inspection: normal inspection of the chest and normal palpation of entire chest wall Resp Effort & Inspection: normal respiratory effort and able to speak in complete sentences Auscultation: clear to auscultation bilaterally Cardio Jugular venous distension: no JVD Heart sounds: S1 normal heart sound present and S2 normal heart sound present GI Inspection: Yes normal to inspection and No abdominal wall ecchymosis Palpation (GI): Soft to palpation, not firm, nontender, no guarding and not rigid General: No CVA tenderness and Yes no CVA tenderness Back/Spine/Pelvis Back: no CVA tenderness, No CVA tenderness and No back tenderness Skin General skin exam: no rashes or lesions noted and elasticity normal Neuro General: oriented to person, oriented to place, oriented to time, patient oriented x3, gait normal, tone normal, moves all extremities, Normal light touch and pain sensation, no meningeal signs, no focal motor deficits, CN's II-XI intact bilaterally and normal sensation to monofilament Extrem Other: Bilateral lower extremities negative for swelling, pitting edema, or calf tenderness. General: Yes normal to inspection and Yes full ROM Psych Appearance: grossly normal, well kempt and not disheveled Course Course Course Narrative: Patient presently has no chest pain but will do cardiac workup including BNP troponin chest x-ray. Blood pressure elevated but asymptomatic. Patient states she has not taking his blood pressure for the past 2 days. Will give him his labetalol and hydralazine. Reevaluation(s) Reevaluation #1: Patient not in fluid overload. Chest x-ray prior pneumonias/infiltrates improved. EKG negative STEMI negative PT waves. Potassium 5.3. Patient has Creatine is at baseline. Will give low, and repeat troponin and chemistry. Time: 13:09 Reevaluation #2: Patient is sleeping comfortably in bed and is asymptomatic. Wait for 2nd troponin repeat chemistry. Time: 15:50 Reevaluation #3: Patient's potassium improved. Creatinine is at baseline. Troponin negative. Patient slept throughout the whole ED visit without any chest pain. Not suspecting PE. Patient not in fluid overload. Not suspecting any heart failure or heart attack. 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 Patient informed to be compliant with his blood pressure medications. Blood pressure improved after receiving home meds in the ER. Time: 16:12 Medications Administered Discontinued Medications Generic Name Dose Route Start Last Admin Trade Name Arlene PRN Reason Stop Dose Admin Hydralazine HCl 50 mg 07/19/22 10:14 07/19/22 10:32 Hydralazine Hcl 50 Mg Tablet PO 07/19/22 10:15 50 mg ONCE ONE Administration Protocol Labetalol HCl 300 mg 07/19/22 12:08 07/19/22 12:31 Labetalol Hcl 200 Mg Tablet PO 07/19/22 12:09 300 mg ONCE ONE Administration Protocol Sodium Zirconium Cyclosilicate 10 gm 07/19/22 12:12 07/19/22 12:31 Sodium Zirconium Cyclosilicate 10 Gm Powd.Pack PO 07/19/22 12:13 10 gm ONCE ONE Administration Medical Decision Making Medical Decision Making [facility] Narrative: 56-year-old male history of CKD, and hypertension presents to the ED chest pain that resolved on its own 1 out before coming to the ER. Patient cardiac workup normal. Patient is symptomatic during the ED visit. Hyperkalemia resolved. Presently not suspecting pulmonary embolus. Not suspecting heart failure or fluid overload. Patient is not having a heart attack. Chest x-ray normal. Atypical chest pain Differential Diagnosis Differential Diagnoses: The differential diagnosis associated with the presentation includes (Pneumonia, CHF, PE, myocardial infarction,) Admission/Observation Consideration of admission/observation: Escalation of care including admi ssion/observation considered Lab Data [facility] Lab Attestation statement: I reviewed the patient's lab results. 07/19/22 11:39 07/19/22 10:57 Labs: Lab Results 07/19/22 07/19/22 07/19/22 Range/Units 10:37 10:57 11:39 WBC 9.9 (4.8-10.8) X10*3/uL RBC 3.58 L (4.60-5.80) X10*6/uL Hgb 10.4 L (14.0-18.0) g/dl Hct 31.0 L (42.0-52.0) % MCV 86.6 (80.0-98.0) fL MCH 29.1 (27.0-33.0) pg MCHC 33.5 (31.0-36.0) g/dl RDW 12.4 (11.0-16.0) % Plt Count 229 D (160-400) X10*3/uL MPV 9.7 (9.4-12.4) fL Immature Gran % (Auto) 0.3 (0.0-0.4) % Neut % (Auto) 76.7 H (45-73) % Lymph % (Auto) 11.3 L (20-40) % Shannon % (Auto) 10.0 (2-11) % Eos % (Auto) 0.9 (0-4) % Baso % (Auto) 0.8 (0-2) % Lymph # (Auto) 1.1 L (1.2-4.9) X10*3/uL Shannon # (Auto) 1.0 (0.1-1.2) X10*3/uL Eos # (Auto) 0.1 (0.0-0.4) X10*3/uL Baso # (Auto) 0.1 (0.0-0.2) X10*3/uL Abs Immat Gran (auto) 0.03 (0.00-0.03) X10*3/uL Absolute Neuts (auto) 7.6 (2.0-8.3) x10*3/uL Absolute Nucleated RBC 0.000 (0.0-0.012) X10*3/uL Nucleated RBC % (auto) 0.0 (0.0-0.2) /100WBC PT (10.0-13.1) SEC INR (0.9-1.1) APTT (26.0-36.4) SEC Sodium 133 L (135-145) mmol/L Potassium 5.3 H D (3.3-5.1) mmol/L Chloride 101 (96-108) mmol/L Carbon Dioxide 22 (22-29) mmol/L Anion Gap 15 (12-20) BUN 37 H (9-16) mg/dL Creatinine 2.84 H (0.5-1.4) mg/dL Estim Creat Clear Calc 33.3 Estimated GFR 23 Random Glucose 105 (60-115) mg/dL Calcium 9.2 (8.4-10.2) mg/dL Total Bilirubin 0.5 (0.0-1.0) mg/dL AST 24 (5-37) U/L ALT 35 (0-40) U/L Alkaline Phosphatase 196 H (39-117) U/L Troponin I High Sens (<3.5-35.0) ng/L B-Natriuretic Peptide (<100) pg/mL Total Protein 6.9 (6.5-8.0) g/dL Albumin 3.9 (3.5-5.0) g/dL COVID-19 (ANGI) Negative (Negative) COVID-19 Clin Com See Note 07/19/22 07/19/22 07/19/22 Range/Units 11:39 11:39 11:39 WBC (4.8-10.8) X10*3/uL RBC (4.60-5.80) X10*6/uL Hgb (14.0-18.0) g/dl Hct (42.0-52.0) % MCV (80.0-98.0) fL MCH (27.0-33.0) pg MCHC (31.0-36.0) g/dl RDW (11.0-16.0) % Plt Count (160-400) X10*3/uL MPV (9.4-12.4) fL Immature Gran % (Auto) (0.0-0.4) % Neut % (Auto) (45-73) % Lymph % (Auto) (20-40) % Shannon % (Auto) (2-11) % Eos % (Auto) (0-4) % Baso % (Auto) (0-2) % Lymph # (Auto) (1.2-4.9) X10*3/uL Shannon # (Auto) (0.1-1.2) X10*3/uL Eos # (Auto) (0.0-0.4) X10*3/uL Baso # (Auto) (0.0-0.2) X10*3/uL Abs Immat Gran (auto) (0.00-0.03) X10*3/uL Absolute Neuts (auto) (2.0-8.3) x10*3/uL Absolute Nucleated RBC (0.0-0.012) X10*3/uL Nucleated RBC % (auto) (0.0-0.2) /100WBC PT 12.1 (10.0-13.1) SEC INR 1.1 (0.9-1.1) APTT 34.2 (26.0-36.4) SEC Sodium (135-145) mmol/L Potassium (3.3-5.1) mmol/L Chloride (96-108) mmol/L Carbon Dioxide (22-29) mmol/L Anion Gap (12-20) BUN (9-16) mg/dL Creatinine (0.5-1.4) mg/dL Estim Creat Clear Calc Estimated GFR Random Glucose (60-115) mg/dL Calcium (8.4-10.2) mg/dL Total Bilirubin (0.0-1.0) mg/dL AST (5-37) U/L ALT (0-40) U/L Alkaline Phosphatase (39-117) U/L Troponin I High Sens 7.2 (<3.5-35.0) ng/L B-Natriuretic Peptide 129 H (<100) pg/mL Total Protein (6.5-8.0) g/dL Albumin (3.5-5.0) g/dL COVID-19 (ANGI) (Negative) COVID-19 Clin Com 07/19/22 07/19/22 Range/Units 15:39 15:39 WBC (4.8-10.8) X10*3/uL RBC (4.60-5.80) X10*6/uL Hgb (14.0-18.0) g/dl Hct (42.0-52.0) % MCV (80.0-98.0) fL MCH (27.0-33.0) pg MCHC (31.0-36.0) g/dl RDW (11.0-16.0) % Plt Count (160-400) X10*3/uL MPV (9.4-12.4) fL Immature Gran % (Auto) (0.0-0.4) % Neut % (Auto) (45-73) % Lymph % (Auto) (20-40) % Shannon % (Auto) (2-11) % Eos % (Auto) (0-4) % Baso % (Auto) (0-2) % Lymph # (Auto) (1.2-4.9) X10*3/uL Shannon # (Auto) (0.1-1.2) X10*3/uL Eos # (Auto) (0.0-0.4) X10*3/uL Baso # (Auto) (0.0-0.2) X10*3/uL Abs Immat Gran (auto) (0.00-0.03) X10*3/uL Absolute Neuts (auto) (2.0-8.3) x10*3/uL Absolute Nucleated RBC (0.0-0.012) X10*3/uL Nucleated RBC % (auto) (0.0-0.2) /100WBC PT (10.0-13.1) SEC INR (0.9-1.1) APTT (26.0-36.4) SEC Sodium 136 (135-145) mmol/L Potassium 4.7 (3.3-5.1) mmol/L Chloride 101 (96-108) mmol/L Carbon Dioxide 26 (22-29) mmol/L Anion Gap 14 (12-20) BUN 36 H (9-16) mg/dL Creatinine 2.82 H (0.5-1.4) mg/dL Estim Creat Clear Calc 33.5 Estimated GFR 23 Random Glucose 176 H (60-115) mg/dL Calcium 9.0 (8.4-10.2) mg/dL Total Bilirubin 0.4 (0.0-1.0) mg/dL AST 22 (5-37) U/L ALT 32 (0-40) U/L Alkaline Phosphatase 196 H (39-117) U/L Troponin I High Sens 6.4 (<3.5-35.0) ng/L B-Natriuretic Peptide (<100) pg/mL Total Protein 6.8 (6.5-8.0) g/dL Albumin 3.8 (3.5-5.0) g/dL COVID-19 (ANGI) (Negative) COVID-19 Clin Com Independent Interpretation I performed an independent interpretation of an: EKG (Normal sinus rhythm. Reti cular 81. Pr interval 142. QRS 78. QTC 436. Negative STEMI.) Radiology Impression Discussion of test interpretation with radiology: I have reviewed the radiologist's reading. External Record Review External record reviewed: Outpatient record and Prior outpatient radiology Discharge Plan Discharge Clinical Impression: Atypical chest pain, Hypertension Patient Disposition: Home, Self-Care Instructions: Chest Pain (DC), Hypertension (ED) Additional Instructions: Do blood work came back normal a and at baseline. EKG came back negative for heart attack. Please follow-up with your primary care provider. Please be compliant with the high blood pressure medications. On control blood pressure could lead to stroke heart attacks and worsening kidney function. Return to the ED immediately for any swelling of extremities, chest pain inspiration, shortness of breath, chest pain inspiration, fever, chills, coughing up blood, or any other concerning symptoms. Prescriptions: No Action clonazepam 0.5 mg tablet 0.5 mg PO TID PRN (Reason: anxiety) Qty: 90 5RF (DME) lancets [FreeStyle Lancets] 28 gauge misc See Rx Instructions .MEDSUPPLY Qty: 150 5RF Rx Instructions: 4 times a day cholecalciferol (vitamin D3) [D3-2000] 50 mcg (2,000 unit) capsule 50 mcg PO DAILY Qty: 30 11RF omega-3 acid ethyl esters 1 gram capsule 2 cap PO BID 30 Days Qty: 120 11RF (DME) FreeStyle John 14 Day Sensor Kit See Rx Instructions .Route Qty: 1 0RF Rx Instructions: As directed Tradjenta 5 mg tablet 5 mg PO DAILY 30 Days Qty: 30 6RF gabapentin 300 mg capsule 300 mg PO BID Qty: 60 8RF (DME) blood pressure monitor [Blood Pressure Kit] Kit See Rx Instructions .Route Qty: 1 0RF Rx Instructions: As directed nifedipine 60 mg tablet extended release 24hr 120 mg PO DAILY 90 Days Qty: 180 1RF hydralazine 50 mg tablet 100 mg PO TID Qty: 90 8RF Protocol: Hold for SBP< HOLD for SBP < : 90 venlafaxine 150 mg capsule,extended release 24hr 150 mg PO DAILY meclizine 25 mg tablet 25 mg PO Q6H PRN (Reason: Dizziness) trazodone 150 mg tablet 150 mg PO BEDTIME insulin aspart U-100 [Novolog FlexPen U-100 Insulin] 100 unit/mL (3 mL) insulin pen 14 unit subcut TIDAC bupropion HCl 150 mg tablet extended release 24 hr 150 mg PO DAILY Toujeo Max U-300 SoloStar 300 unit/mL (3 mL) insulin pen 70 unit subcut DAILY Rx Instructions: in the morning torsemide 20 mg tablet 20 mg PO DAILY Qty: 30 0RF isosorbide mononitrate 30 mg tablet extended release 24 hr 30 mg PO DAILY Qty: 30 0RF (DME) Blood Pressure Cuff Misc See Rx Instructions .Route Qty: 1 0RF Rx Instructions: As directed multivitamin with folic acid [Tab-A-George] 400 mcg tablet 1 tab PO DAILY (DME) pen needle, diabetic [Ultracare Pen Needle] 32 gauge x 3/16 needle See Rx Instructions .ROUTE .MEDSUPPLY Qty: 50 Rx Instructions: As directed famotidine 20 mg tablet 20 mg PO BID Qty: 180 8RF metoclopramide HCl 5 mg tablet 5 mg PO QID Qty: 360 2RF simethicone 180 mg capsule 180 mg PO TID Qty: 90 1RF labetalol 300 mg tablet 300 mg PO BID Qty: 60 3RF (DME) pen needle, diabetic [BD Kacey 2nd Gen Pen Needle] 32 gauge x 5/32 needle See Rx Instructions .MEDSUPPLY Qty: 400 6RF Rx Instructions: 5 times a day Print Language: [place]
[2022-07-19 10:58] LABS: COVID-19 Test Negative (Negative); IDNOW Serial# 08D9AD1C
[2022-07-19 11:28] LABS: Alanine Aminotransferase 35 U/L (0-40); Albumin Level 3.9 g/dL (3.5-5.0); Alkaline Phosphatase 196 U/L (39-117); Anion Gap 15 (12-20); Aspartate Amino Transferase 24 U/L (5-37); Bilirubin Total 0.5 mg/dL (0.0-1.0); Blood Urea Nitrogen 37 mg/dL (9-16); Calcium 9.2 mg/dL (8.4-10.2); Carbon Dioxide 22 mmol/L (22-29); Chloride 101 mmol/L (96-108); Creatinine Clr Calc Pharmacy 33.3; Estimated Glomerular Filt Rate 23; Glucose Random 105 mg/dL (60-115); Potassium 5.3 mmol/L (3.3-5.1); Sodium 133 mmol/L (135-145); Total Protein 6.9 g/dL (6.5-8.0)
[2022-07-19 11:45] LABS: MANUAL DIFF FLAG NO
[2022-07-19 11:48] LABS: Basophils Absolute Auto 0.1 X10*3/uL (0.0-0.2); Basophils Percent Auto 0.8 % (0-2); Eosinophils Absolute Auto 0.1 X10*3/uL (0.0-0.4); Eosinophils Percent Auto 0.9 % (0-4); Hemoglobin 10.4 g/dl (14.0-18.0); Imm Gran Abs Auto 0.03 X10*3/uL (0.00-0.03); Imm Gran Pct Auto 0.3 % (0.0-0.4); Lymphocytes Absolute Auto 1.1 X10*3/uL (1.2-4.9); Lymphocytes Percent Auto 11.3 % (20-40); Mean Corpuscular HGB Conc 33.5 g/dl (31.0-36.0); Mean Corpuscular Hemoglobin 29.1 pg (27.0-33.0); Mean Corpuscular Volume 86.6 fL (80.0-98.0); Mean Platelet Volume 9.7 fL (9.4-12.4); Neutrophils Absolute Auto 7.6 x10*3/uL (2.0-8.3); Neutrophils Percent Auto 76.7 % (45-73); Platelet Count 229 X10*3/uL (160-400); Red Blood Count 3.58 X10*6/uL (4.60-5.80); Red Cell Distribution Width 12.4 % (11.0-16.0); White Blood Count 9.9 X10*3/uL (4.8-10.8)
[2022-07-19 11:53] LABS: INTERNATIONAL NORM RATIO 1.1 (0.9-1.1); Prothrombin Time 12.1 SEC (10.0-13.1)
[2022-07-19 11:54] VITALS: BP 187/90; PULSE 80; RESP 14; O2SAT 93
[2022-07-19 11:55] LABS: Partial Thromboplastin Time 34.2 SEC (26.0-36.4)
[2022-07-19 12:27] LABS: B Type Natriuretic Peptide 129 pg/mL (<100)
[2022-07-19 12:31] VITALS: BP 187/89; PULSE 79; RESP 13; O2SAT 99
[2022-07-19] MEDS: Labetalol HCL 200 MG TABLET 300 MG PO (12:31)
[2022-07-19] MEDS: Sodium Zirconium Cyclosilicate 10 GM POWD.PACK PO (12:31)
[2022-07-19 13:12] LABS: Troponin-I High Sensitivity 7.2 ng/L (<3.5-35.0)
[2022-07-19 14:30] VITALS: BP 163/71; PULSE 68; RESP 16; O2SAT 99
[2022-07-19 16:01] LABS: Alanine Aminotransferase 32 U/L (0-40); Albumin Level 3.8 g/dL (3.5-5.0); Alkaline Phosphatase 196 U/L (39-117); Anion Gap 14 (12-20); Aspartate Amino Transferase 22 U/L (5-37); Bilirubin Total 0.4 mg/dL (0.0-1.0); Blood Urea Nitrogen 36 mg/dL (9-16); Carbon Dioxide 26 mmol/L (22-29); Chloride 101 mmol/L (96-108); Creatinine Clr Calc Pharmacy 33.5; Estimated Glomerular Filt Rate 23; Glucose Random 176 mg/dL (60-115); Potassium 4.7 mmol/L (3.3-5.1); Sodium 136 mmol/L (135-145); Total Protein 6.8 g/dL (6.5-8.0)
[2022-07-19 16:09] LABS: Troponin-I High Sensitivity 6.4 ng/L (<3.5-35.0)
== END 2022-07-19 19:50 | disposition home or self-care (01) ==
PROVIDERS: Physician Assistant; Emergency Provider Emergency Medicine; PCP Internal Medicine
DX: R07.89 Other chest pain (principal); E11.22 Type 2 diabetes mellitus with diabetic chronic kidney disease; I13.0 Hypertensive heart and chronic kidney disease with heart failure and stage 1 through stage 4 chronic kidney disease, or unspecified chronic kidney disease; N18.30 Chronic kidney disease, stage 3 unspecified; I50.30 Unspecified diastolic (congestive) heart failure; Z20.822 Contact with and (suspected) exposure to COVID-19; E78.5 Hyperlipidemia, unspecified; Z79.899 Other long term (current) drug therapy; Z79.4 Long term (current) use of insulin
CPT/HCPCS: 36415; 71045; 80053; 83880; 84484; 85025; 85610; 85730; 87635; 93005; 99283; 99284

== ENCOUNTER 2022-07-21 20:09 | Inpatient (IN) | payer OTHER, SELFPAY ==
--- NOTE | 2022-07-21 | ECG_ITS ---
Test Reason : SYNCOPE Blood Pressure : / mmHG Vent. Rate : 057 BPM Atrial Rate : 057 BPM P-R Int : 150 ms QRS Dur : 080 ms QT Int : 442 ms P-R-T Axes : 043 018 044 degrees QTc Int : [address] elevation, consider early repolarization Otherwise normal ECG When compared with ECG of 19-JUL-2022 09:59, No significant change was found Referred By: Generic ED Physician Electronically Signed By:KATHERINE SMITH
[2022-07-21 20:15] VITALS: BP 118/62; BP 120/70; PULSE 55; PULSE 56; RESP 16; TEMP 36.7; O2SAT 95; O2SAT 96; BMI 30.4
[2022-07-21 20:20] VITALS: BP 118/62; PULSE 55; RESP 18; TEMP 36.7; O2SAT 96
--- NOTE | 2022-07-21 20:33 | MHC.EDTECH ---
pt ekg was done and read by md aragon
--- NOTE | 2022-07-21 21:21 | ED_ITS ---
HPI - General Adult General Chief complaint: Syncope Stated complaint: INCR DIZZINESS SINCE 1PM Time Seen by Provider: 07/21/22 21:04 Source: patient Mode of arrival: EMS Limitations: no limitations History of Present Illness HPI narrative: 56-year-old male presents for vertigo, balance difficulty walking. Patient has a history of vertigo. He also has a history of diabetes chronic kidney disease, anemia and frequent hospitalizations recently. Around 1:00 a.m. this afternoon, he started to feel dizzy and nauseous. Had difficulty ambulating. He also appeared somewhat somnolent to family. Symptoms are moderate to severe in nature. Symptoms are worse with certain movements and head movements. He had a sensation of movement. It can be associated with nausea but no vomiting. Denies any chest pain, palpitations, lytes breath, shortness of breath. Denies any polyuria, polydipsia. Denies any recent weight changes. Patient recently got out of short-term rehabilitation 3 days ago. He denies any diarrhea her C diff related symptoms. Symptoms are somewhat similar to previous episodes of vertigo Related Data Home Medications Medication Instructions Recorded Confirmed venlafaxine 150 mg 150 mg PO DAILY 10/30/21 06/19/22 capsule,extended release 24 hr multivitamin with folic acid 400 1 tab PO DAILY 03/06/22 06/19/22 mcg tablet (Tab-A-George) pen needle, diabetic 32 gauge x #50 ea 03/06/22 06/02/2206/14 (Ultracare Pen Needle) bupropion HCl 150 mg 24 hr tablet, 150 mg PO DAILY 05/16/22 06/19/22 extended release insulin aspart U-100 100 unit/mL 14 unit subcut TIDAC 05/16/22 06/19/22 (3 mL) subcutaneous pen (Novolog FlexPen U-100 Insulin aspart) insulin glargine U-300 conc 300 70 unit subcut DAILY 05/16/22 06/19/22 unit/mL (3 mL) subcutaneous pen (Toujeo Max U-300 SoloStar) meclizine 25 mg tablet 25 mg PO Q6H PRN Dizziness 05/16/22 06/19/22 trazodone 150 mg tablet 150 mg PO BEDTIME 05/16/22 06/19/22 Previous Rx's Medication Instructions Recorded clonazepam 0.5 mg tablet 0.5 mg PO TID PRN anxiety #90 tabs 01/31/21 lancets 28 gauge (FreeStyle #150 ea 05/12/21 Lancets) miscellaneous medical supply #1 ea 05/25/21 (Blood Pressure Cuff) pen needle, diabetic 32 gauge x #400 ea 08/11/21 (BD Kacey 2nd Gen Pen Needle) cholecalciferol (vitamin D3) 50 50 mcg PO DAILY #30 caps 08/30/21 mcg (2,000 unit) capsule (D3-2000) omega-3 acid ethyl esters 1 gram 2 cap PO BID 30 days #120 caps 09/04/21 capsule flash glucose sensor (FreeStyle #1 ea 04/10/22 John 14 Day Sensor kit) famotidine 20 mg tablet 20 mg PO BID #180 tabs 05/01/22 metoclopramide HCl 5 mg tablet 5 mg PO QID #360 tabs 05/01/22 simethicone 180 mg capsule 180 mg PO TID #90 caps 05/01/22 linagliptin 5 mg tablet (Tradjenta) 5 mg PO DAILY 30 days #30 tabs 05/16/22 torsemide 20 mg tablet 20 mg PO DAILY #30 tabs 06/04/22 gabapentin 300 mg capsule 300 mg PO BID #60 caps 06/07/22 labetalol 300 mg tablet 300 mg PO BID #60 tabs 06/11/22 blood pressure monitor (Blood #1 ea 06/12/22 Pressure Kit) nifedipine 60 mg tablet,extended 120 mg PO DAILY 90 days #180 tabs 06/13/22 release 24 hr isosorbide mononitrate 30 mg 30 mg PO DAILY #30 tabs 06/29/22 tablet,extended release 24 hr hydralazine 100 mg tablet 100 mg PO TID 14 days #42 tabs 07/19/22 hydralazine 50 mg tablet 100 mg PO TID #90 tabs 07/19/22 Allergies Allergy/AdvReac Type Severity Reaction Status Date / Time cephalexin [From KEFLEX] Allergy Mild ITCHY Verified 05/31/22 14:14 THROAT lisinopril [LISINOPRIL] Allergy Unknown SWELLING Verified 05/31/22 14:14 COUGH PMFSH Past Medical History Medical History Acute hyponatremia Anxiety Chronic hyperglycemia CKD (chronic kidney disease) CKD (chronic kidney disease) CKD (chronic kidney disease) stage 3, GFR 30-59 ml/min CKD (chronic kidney disease) stage 4, GFR 15-29 ml/min Depression Diabetes Diabetes mellitus with coincident hypertension Diabetes type 2, uncontrolled Diabetic nephropathy associated with type 2 diabetes mellitus Diabetic neuropathy associated with type 2 diabetes mellitus Dyslipidemia Essential hypertension GERD (gastroesophageal reflux disease) Hepatitis High cholesterol Hypercalcemia Hyperlipidemia Hypertension [facility] (current) use of insulin Metabolic acidosis Neuropathy New onset of congestive heart failure Obesity Obesity (BMI 30-39.9) Severe depression Sleep apnea Type 2 diabetes mellitus with obesity Vitamin D deficiency Surgical History H/O colonoscopy History of esophagogastroduodenoscopy (EGD) Hx of arthroscopy of knee Hx of arthroscopy of right knee Family History Family History Father Diabetes Mother No problems noted. Social History Social History Household Members: Family Household Members Other:: SISTER Housing: Apartment Do you presently have visiting nurse or other home services: Yes Alcohol intake: never Patient Tobacco Use Status: Never used Tobacco Smoked in Last 30 Days: No e-Cigarette/Vaping Use: Never Used Second Hand Smoke Exposure: Yes (HISTORY OF SECOND HAND SMOKE EXPOSURE) Use of substances other than those prescribed or required for medical reasons: No Advance Directives: Yes Advance Directives on File: Yes Advance Directives Date on File: 05/05/20 service: No Current occupational status: disabled Current occupation: right handed Cognitive needs: No Hearing needs: No Vision needs: No Physical Exam ED Vital Signs: Vital Signs - 24 hr 07/21/22 20:15 07/21/22 20:20 07/21/22 20:20 Temperature 98.0 F 98.0 F Pulse Rate 55 55 Respiratory Rate 16 18 Blood Pressure 118/62 118/62 Pulse Oximetry 95 96 96 Oxygen Delivery Method Room Air Room Air Room Air 07/21/22 21:50 Temperature 98.0 F Pulse Rate 63 Respiratory Rate 16 Blood Pressure 128/61 Pulse Oximetry 97 Oxygen Delivery Method Room Air BMI result Body Mass Index 30.4 GEN: Well developed, no acute distress, alert, oriented HEENT: Normocephalic, atraumatic, normal external ears, nose appears normal, no oropharyngeal edema or exudates Eyes: Normal to appearance, 10 beat nystagmus to the left, no nystagmus to the right, this is horizontal not vertical Neck: Supple, no lymphadenopathy Respiratory: Talks in complete sentences, no respiratory distress, clear to auscultation bilaterally Cardiovascular: Regular rate and rhythm, no murmurs rubs or gallops Abdomen: Soft, nontender, nondistended, no guarding, no rebound Back: No CVA tenderness Extremities: No clubbing cyanosis or edema Neurologic: No focal neurologic deficits, cranial nerves 2-12 intact, strength is 5/5 bilaterally, no pronator drift, and normal rapid alternating movements Skin: No rash Course Course Course Narrative: 56-year-old male presents with vertiginous symptoms. Patient has multiple chronic medical problems and frequent hospitalizations over the last several months. Examination did reveal nystagmus left. Otherwise his neurologic exam is nonfocal. Patient had an MRI approximately 6 weeks ago. There is microv ascular disease but no mass. He also is noted to have chronic anemia, chronic kidney disease which is pose stable. At this point, I will treat the patient symptomatically with Zofran. Check back low seen earlier today which did improve his symptoms. His sister is present. Reevaluation(s) Reevaluation #1: Patient has acute on chronic kidney injury. His potassium levels 5.8. Will initiate hyperkalemic protocol. There are no peaked T-waves. There is no indication to start calcium gluconate. Will patient patient on cafeteria monitor to continue to evaluate. Patient will require hospitalization Time: 23:03 Reevaluation #2: admitted to [facility], dicussed with hospitalist Time: 23:26 Medications Administered Discontinued Medications Generic Name Dose Route Start Last Admin Trade Name Freq PRN Reason Stop Dose Admin Albuterol Sulfate 2.5 mg 07/21/22 22:58 07/21/22 23:23 Albuterol Sulfate (0.083%) 2.5 Mg/3 Ml Vial.Neb INHALE 07/21/22 22:59 2.5 m g ONCE ONE Administration Ondansetron HCl 4 mg 07/21/22 21:38 07/21/22 21:53 Ondansetron Hcl 4 Mg/2 Ml Vial IVPUSH 07/21/22 21:39 4 mg ONCE ONE Administration Medical Decision Making Medical Decision Making [facility] Narrative: 56-year-old male with multiple medical problems presents with vertigo. Patient has a history of vertigo. Recent imaging studies. Exam was benign with exception of hard on all nystagmus to the left. He has improved after meclizine. At this point, the differential could be vertigo with BPPV, labyrinthitis, vestibular neuritis. There could also be electrolyte abnormality such as hyponatremia, glucose metabolism lead issues. Could have a urinary tract infection. Doubt myocardial infarction as he has had no chest pain an EKG is nonischemic. Will order a cardiac enzyme. Differential Diagnosis Differential Diagnoses: The differential diagnosis associated with the presentation includes (Peripheral vertigo, BPPV, labyrinthitis, vestibular neuritis, electrolyte abnormality, UTI, uncontrolled diabetes, or renal abnormalities, hepatic dysfunction) Vertigo Lab Data [facility] Lab Attestation statement: I reviewed the patient's lab results. 07/21/22 22:04 07/21/22 22:04 Labs: Lab Results 07/21/22 07/21/22 07/21/22 Range/Units 22:04 22:04 22:04 WBC 10.3 (4.8-10.8) X10*3/uL RBC 3.11 L (4.60-5.80) X10*6/uL Hgb 9.3 L (14.0-18.0) g/dl Hct 26.2 L (42.0-52.0) % MCV 84.2 (80.0-98.0) fL MCH 29.9 (27.0-33.0) pg MCHC 35.5 (31.0-36.0) g/dl RDW 12.7 (11.0-16.0) % Plt Count 199 (160-400) X10*3/uL MPV 10.0 (9.4-12.4) fL Immature Gran % (Auto) 0.5 H (0.0-0.4) % Neut % (Auto) 73.2 H (45-73) % Lymph % (Auto) 13.8 L (20-40) % Teller % (Auto) 10.0 (2-11) % Eos % (Auto) 1.8 (0-4) % Baso % (Auto) 0.7 (0-2) % Lymph # (Auto) 1.4 (1.2-4.9) X10*3/uL Teller # (Auto) 1.0 (0.1-1.2) X10*3/uL Eos # (Auto) 0.2 (0.0-0.4) X10*3/uL Baso # (Auto) 0.1 (0.0-0.2) X10*3/uL Abs Immat Gran (auto) 0.05 H (0.00-0.03) X10*3/uL Absolute Neuts (auto) 7.5 (2.0-8.3) x10*3/uL Absolute Nucleated RBC 0.000 (0.0-0.012) X10*3/uL Nucleated RBC % (auto) 0.0 (0.0-0.2) /100WBC Sodium 125 L (135-145) mmol/L Potassium 5.8 H D (3.3-5.1) mmol/L Chloride 92 L (96-108) mmol/L Carbon Dioxide 22 (22-29) mmol/L Anion Gap 17 (12-20) BUN 47 H (9-16) mg/dL Creatinine 4.52 H* (0.5-1.4) mg/dL Estim Creat Clear Calc 20.5 Estimated GFR 14 Random Glucose 114 (60-115) mg/dL Calcium 8.7 (8.4-10.2) mg/dL Phosphorus 4.3 (2.7-4.5) mg/dL Magnesium 1.5 L (1.6-2.6) mg/dL Total Bilirubin 0.3 (0.0-1.0) mg/dL AST 45 H (5-37) U/L ALT 53 H (0-40) U/L Alkaline Phosphatase 199 H (39-117) U/L Troponin I High Sens 5.8 (<3.5-35.0) ng/L Total Protein 7.0 (6.5-8.0) g/dL Albumin 3.8 (3.5-5.0) g/dL TSH 1.01 (0.32-4.0) uIU/mL Independent Interpretation I performed an independent interpretation of an: EKG (Sinus Martínez 57, normal intervals, early repolarization) Independent Historian Clinical information obtained from an independent historian. History obtained from or confirmed by: Other (Sister) External Record Review External record reviewed: Prior outpatient radiology ( MR/MR head/brain wo con IMPRESSION: 1. No acute intracranial abnormality. 2. Patchy periventricular and deep white matter T2 FLAIR hyperintensities appear progressed compared to MRI from 2016 and are nonspecific, most likely reflecting sequela of chronic microvascular ischem) Chronic Conditions Patient?s care impacted by: Diabetes and Hypertension Critical Care Time Critical Care Time Critical Care Time: Yes Total Critical Care Time: 35 Attestation: Critical care time any amount of approximately 35 minutes with bedside assessment, review of medical records, documentation, discussion of care with family, review of medical data, treatment of potentially significantly threatening metabolic abnormality hyperkalemia with acute kidney failure. Discharge Plan Discharge Clinical Impression: Vertigo, Diabetes type 2, uncontrolled, Chronic anemia, Cerebral microvascular disease, CKD (chronic kidney disease), LEDA (acute kidney injury), Acute hyperkalemia, Acute hyponatremia Patient Disposition: Admitted As Inpatient Prescriptions: No Action clonazepam 0.5 mg tablet 0.5 mg PO TID PRN (Reason: anxiety) Qty: 90 5RF (DME) lancets [FreeStyle Lancets] 28 gauge misc See Rx Instructions .MEDSUPPLY Qty: 150 5RF Rx Instructions: 4 times a day cholecalciferol (vitamin D3) [D3-2000] 50 mcg (2,000 unit) capsule 50 mcg PO DAILY Qty: 30 11RF omega-3 acid ethyl esters 1 gram capsule 2 cap PO BID 30 Days Qty: 120 11RF (DME) FreeStyle John 14 Day Sensor Kit See Rx Instructions .Route Qty: 1 0RF Rx Instructions: As directed Tradjenta 5 mg tablet 5 mg PO DAILY 30 Days Qty: 30 6RF gabapentin 300 mg capsule 300 mg PO BID Qty: 60 8RF (DME) blood pressure monitor [Blood Pressure Kit] Kit See Rx Instructions .Route Qty: 1 0RF Rx Instructions: As directed nifedipine 60 mg tablet extended release 24hr 120 mg PO DAILY 90 Days Qty: 180 1RF hydralazine 50 mg tablet 100 mg PO TID Qty: 90 8RF Protocol: Hold for SBP< HOLD for SBP < : 90 venlafaxine 150 mg capsule,extended release 24hr 150 mg PO DAILY meclizine 25 mg tablet 25 mg PO Q6H PRN (Reason: Dizziness) trazodone 150 mg tablet 150 mg PO BEDTIME insulin aspart U-100 [Novolog FlexPen U-100 Insulin] 100 unit/mL (3 mL) insulin pen 14 unit subcut TIDAC bupropion HCl 150 mg tablet extended release 24 hr 150 mg PO DAILY Toujeo Max U-300 SoloStar 300 unit/mL (3 mL) insulin pen 70 unit subcut DAILY Rx Instructions: in the morning torsemide 20 mg tablet 20 mg PO DAILY Qty: 30 0RF isosorbide mononitrate 30 mg tablet extended release 24 hr 30 mg PO DAILY Qty: 30 0RF hydralazine 100 mg tablet 100 mg PO TID 14 Days Qty: 42 0RF (DME) Blood Pressure Cuff Misc See Rx Instructions .Route Qty: 1 0RF Rx Instructions: As directed multivitamin with folic acid [Tab-A-George] 400 mcg tablet 1 tab PO DAILY (DME) pen needle, diabetic [Ultracare Pen Needle] 32 gauge x 3/16 needle See Rx Instructions .ROUTE .MEDSUPPLY Qty: 50 Rx Instructions: As directed famotidine 20 mg tablet 20 mg PO BID Qty: 180 8RF metoclopramide HCl 5 mg tablet 5 mg PO QID Qty: 360 2RF simethicone 180 mg capsule 180 mg PO TID Qty: 90 1RF labetalol 300 mg tablet 300 mg PO BID Qty: 60 3RF (DME) pen needle, diabetic [BD Kacey 2nd Gen Pen Needle] 32 gauge x 5/32 needle See Rx Instructions .MEDSUPPLY Qty: 400 6RF Rx Instructions: 5 times a day
[2022-07-21 21:50] VITALS: BP 128/61; PULSE 63; RESP 16; TEMP 36.7; O2SAT 97
[2022-07-21] MEDS: ondansetron HCL 4 MG/2 ML VIAL IVPUSH (21:53)
[2022-07-21 22:09] LABS: MANUAL DIFF FLAG NO
[2022-07-21 22:13] LABS: Basophils Absolute Auto 0.1 X10*3/uL (0.0-0.2); Basophils Percent Auto 0.7 % (0-2); Eosinophils Absolute Auto 0.2 X10*3/uL (0.0-0.4); Eosinophils Percent Auto 1.8 % (0-4); Hematocrit 26.2 % (42.0-52.0); Hemoglobin 9.3 g/dl (14.0-18.0); Imm Gran Abs Auto 0.05 X10*3/uL (0.00-0.03); Imm Gran Pct Auto 0.5 % (0.0-0.4); Lymphocytes Absolute Auto 1.4 X10*3/uL (1.2-4.9); Lymphocytes Percent Auto 13.8 % (20-40); Mean Corpuscular HGB Conc 35.5 g/dl (31.0-36.0); Mean Corpuscular Hemoglobin 29.9 pg (27.0-33.0); Mean Corpuscular Volume 84.2 fL (80.0-98.0); Neutrophils Absolute Auto 7.5 x10*3/uL (2.0-8.3); Neutrophils Percent Auto 73.2 % (45-73); Platelet Count 199 X10*3/uL (160-400); Red Blood Count 3.11 X10*6/uL (4.60-5.80); Red Cell Distribution Width 12.7 % (11.0-16.0); White Blood Count 10.3 X10*3/uL (4.8-10.8)
[2022-07-21 22:49] LABS: Troponin-I High Sensitivity 5.8 ng/L (<3.5-35.0)
[2022-07-21 22:53] LABS: Alanine Aminotransferase 53 U/L (0-40); Albumin Level 3.8 g/dL (3.5-5.0); Alkaline Phosphatase 199 U/L (39-117); Anion Gap 17 (12-20); Aspartate Amino Transferase 45 U/L (5-37); Bilirubin Total 0.3 mg/dL (0.0-1.0); Blood Urea Nitrogen 47 mg/dL (9-16); Calcium 8.7 mg/dL (8.4-10.2); Carbon Dioxide 22 mmol/L (22-29); Chloride 92 mmol/L (96-108); Creatinine Clr Calc Pharmacy 20.5; Estimated Glomerular Filt Rate 14; Glucose Random 114 mg/dL (60-115); Magnesium 1.5 mg/dL (1.6-2.6); Phosphorus 4.3 mg/dL (2.7-4.5); Potassium 5.8 mmol/L (3.3-5.1); Sodium 125 mmol/L (135-145)
[2022-07-21 23:04] LABS: TSH reflex Free T4 1.01 uIU/mL (0.32-4.0)
[2022-07-21] MEDS: Albuterol Sulfate (0.083%) 2.5 MG/3 ML VIAL.NEB INHALE (23:23)
[2022-07-21 23:25] VITALS: PULSE 76; RESP 16; O2SAT 98
[2022-07-21] MEDS: Dextrose 10 % 250 ML 750 ML IV (23:51)
--- NOTE | 2022-07-21 23:51 | PM.IMHP ---
History of Present Illness Date of Service: 07/21/22 Chief Complaint: presyncope 56M type 2 diabetes, Garcia, hypertension, depression, conversion disorder, chronic constipation, vertigo, CKD stage 3, HFpEF, and obesity presented with dizziness. patient was recently discharged from [facility] for sepsis/pneumonia/leda, at that time bp meds were increased due to uncontrolled hypertension. discharged to SNF. has been home for a few days, was seen 2 days ptp in ED for chest pain and elevated pressures, was given bp meds and discharged home. on day of ptp feeling light headed and almost passed out twice, no chest pain or sob. sbp relatively low - 118, creatinine increased from 2.8 to 4.52, K to 5.8, sodium is 125, was 136. ekg with diffuse mild ST elevations favoring early repolarization, trop negative. Review of Systems Review of Systems: Yes all other systems are reviewed and are negative [facility] Medical History Acute hyponatremia Anxiety Chronic hyperglycemia CKD (chronic kidney disease) CKD (chronic kidney disease) CKD (chronic kidney disease) stage 3, GFR 30-59 ml/min CKD (chronic kidney disease) stage 4, GFR 15-29 ml/min Depression Diabetes Diabetes mellitus with coincident hypertension Diabetes type 2, uncontrolled Diabetic nephropathy associated with type 2 diabetes mellitus Diabetic neuropathy associated with type 2 diabetes mellitus Dyslipidemia Essential hypertension GERD (gastroesophageal reflux disease) Hepatitis High cholesterol Hypercalcemia Hyperlipidemia Hypertension [facility] (current) use of insulin Metabolic acidosis Neuropathy New onset of congestive heart failure Obesity Obesity (BMI 30-39.9) Severe depression Sleep apnea Type 2 diabetes mellitus with obesity Vitamin D deficiency Family History Father Diabetes Mother No problems noted. Surgical History H/O colonoscopy History of esophagogastroduodenoscopy (EGD) Hx of arthroscopy of knee Hx of arthroscopy of right knee Social History Household Members: Family Household Members Other:: SISTER Housing: Apartment Do you presently have visiting nurse or other home services: Yes Alcohol intake: never Patient Tobacco Use Status: Never used Tobacco Smoked in Last 30 Days: No e-Cigarette/Vaping Use: Never Used Second Hand Smoke Exposure: Yes (HISTORY OF SECOND HAND SMOKE EXPOSURE) Use of substances other than those prescribed or required for medical reasons: No Advance Directives: Yes Advance Directives on File: Yes Advance Directives Date on File: 05/05/20 service: No Current occupational status: disabled Current occupation: right handed Cognitive needs: No Hearing needs: No Vision needs: No Meds Allergies Allergy/AdvReac Type Severity Reaction Status Date / Time cephalexin [From KEFLEX] Allergy Mild ITCHY Verified 05/31/22 14:14 THROAT lisinopril [LISINOPRIL] Allergy Unknown SWELLING Verified 05/31/22 14:14 COUGH Active Medications: Current Medications Glucose (Glucose Gel 15 Gm Gel..Gram.) 15 gm PO Q15M PRN; Protocol PRN Reason: per Hypoglycemia Standing Ord. Sodium Chloride (Ns) 1,000 mls @ 999 mls/hr IV .Q1H1M RADHA Stop: 07/22/22 00:00 Dextrose (D10) 250 mls @ 750 mls/hr IV Q15M PRN PRN Reason: per Hypoglycemia Standing Ord. Sodium Chloride (Ns) 1,000 mls @ 50 mls/hr IVCONT .Q20H RADHA Dextrose (D10) 250 mls @ 750 mls/hr IV Q15M PRN; Protocol PRN Reason: per Hypoglycemia Standing Ord. Insulin Human Lispro (Insulin Lispro 100 Unit/Ml 3 Ml Vial) 0 unit SUBCUT QIDACHS RADHA; Protocol Pharmacy Consult (Consult Rx Perform Med Rec) 1 each MISCELLANE ONCE PRN PRN Reason: Consult order Home Medications Medication Instructions Recorded Confirmed Last Taken Type venlafaxine 150 mg 150 mg PO DAILY 10/30/21 07/22/22 06/18/22 History capsule,extended release 24 hr multivitamin with folic acid 400 1 tab PO DAILY 03/06/22 07/22/22 06/18/22 History mcg tablet (Tab-A-George) pen needle, diabetic 32 gauge x #50 ea 03/06/22 06/02/22 Unknown History 316 (Ultracare Pen Needle) bupropion HCl 150 mg 24 hr tablet, 150 mg PO DAILY 05/16/22 07/22/22 06/18/22 History extended release insulin aspart U-100 100 unit/mL 14 unit subcut TIDAC 05/16/22 07/22/22 06/18/22 History (3 mL) subcutaneous pen (Novolog FlexPen U-100 Insulin aspart) insulin glargine U-300 conc 300 70 unit subcut DAILY 05/16/22 06/19/22 06/18/22 History unit/mL (3 mL) subcutaneous pen (Toujeo Max U-300 SoloStar) meclizine 25 mg tablet 25 mg PO Q6H PRN Dizziness 05/16/22 07/22/22 06/18/22 History trazodone 150 mg tablet 150 mg PO BEDTIME 05/16/22 06/19/22 06/18/22 History Physical Exam Vital Signs and Narrative: Vital Signs: Last Vital Signs Temp 98.0 F 07/21/22 21:50 Pulse 76 07/21/22 23:25 Resp 16 07/21/22 23:25 BP 128/61 07/21/22 21:50 Pulse Ox 97 07/21/22 21:50 O2 Del Method Room Air 07/21/22 21:50 BMI result Body Mass Index 30.4 General: AO X 3, no acute distress Resp: CTA bilateral, no accessory muscles used CVS: S1,S2,RRR GI: soft, non tender, non distended Neuro: motor grossly intact, alert Psych: appropriate affect, appropriate insight Results Labs 07/21/22 22:04 07/21/22 22:04 Labs: Laboratory Results - last 24 hr 07/21/22 07/21/22 07/21/22 22:04 22:04 22:04 MCV 84.2 MCH 29.9 MCHC 35.5 RDW 12.7 Plt Count 199 MPV 10.0 Immature Gran % (Auto) 0.5 H Neut % (Auto) 73.2 H Lymph % (Auto) 13.8 L [place] % (Auto) 10.0 Eos % (Auto) 1.8 Baso % (Auto) 0.7 Lymph # (Auto) 1.4 [place] # (Auto) 1.0 Eos # (Auto) 0.2 Baso # (Auto) 0.1 Abs Immat Gran (auto) 0.05 H Absolute Neuts (auto) 7.5 Absolute Nucleated RBC 0.000 Nucleated RBC % (auto) 0.0 Anion Gap 17 Estim Creat Clear Calc 20.5 Estimated GFR 14 Random Glucose 114 Calcium 8.7 Phosphorus 4.3 Magnesium 1.5 L Total Bilirubin 0.3 AST 45 H ALT 53 H Alkaline Phosphatase 199 H Troponin I High Sens 5.8 Total Protein 7.0 Albumin 3.8 TSH 1.01 Assessment and Plan (1) Vertigo: Status: Acute Plan 56M type 2 diabetes, Garcia, hypertension, depression, conversion disorder, chronic constipation, vertigo, CKD stage iv, HFpEF, and obesity presented with dizziness found to have leda, hyperkalemia, hyponatremia presyncope likely due to hypotension due to bp meds, dehydration monitor on tele LEDA on CKD IV with hyperkalemia ivf, monitor bmp, given insulin nephro eval hyponatremia acute, suspect dehydration, monitor on fluids DM with hyperglycemia insulin HTN holding bp meds for hypotension, will likely need to titrate back on as bp rises HFpef appears dry, will hold diuretics monitor closely while on ivf depression effexor obesity, GARCIA weight loss recommended dvt prophylaxis - hep sq full code patient with significant leda and electrolyte abnormalities at risk for further decompensation due to DM, CKDIV, hfpef, therefore, expected to require atleast 2 midnights inpateint Time Spent With Patient Time: Total time managing care of this patient today ____ minutes. Quality Stroke Does the patient have a stroke diagnosis?: No VTE Prior VTE?: No VTE Risk Level:: Medical - moderate - high VTE Device Contraindication: Treatment Not Indicated VTE Drug Contraindication: N/A - Med Ordered
[2022-07-21] MEDS: Sodium Bicarbonate 8.4% 50 MEQ/50 ML SYRINGE IVPUSH (23:52)
[2022-07-21] MEDS: 0.9 % Sodium Chloride 1,000 ML 999 ML IV (23:53)
[2022-07-21] MEDS: Insulin Regular, Human 100 UNIT/ML 3 ML VIAL IVPUSH (23:53)
[2022-07-22] VITALS (7 sets, daily range): BP systolic 144–178; BP diastolic 68–91; PULSE 80–100; RESP 18–20; TEMP 36.2–36.7; O2SAT 92–98
--- NOTE | 2022-07-22 01:06 | MHC.EDTECH ---
Assist patient to and from bathroom. Patient ambulated with his cane.
[2022-07-22] MEDS: 0.9 % Sodium Chloride 1,000 ML 50 ML IVCONT ×2 (01:43→15:35)
--- NOTE | 2022-07-22 02:22 | PC.NURSE ---
report given to RNRafael about pts present condition, the reason for the admission, and what the care plan is in the ed as well as when pt is transferred to the floor. pt also informed of the care plan and what should be expected once on the unit.
[2022-07-22] MEDS: Heparin Sodium,Porcine 5,000 UNIT/ML VIAL 5000 UNIT SUBCUT ×3 (05:50→20:59)
[2022-07-22 06:23] LABS: Hematocrit 27.7 % (42.0-52.0); Hemoglobin 9.4 g/dl (14.0-18.0); Mean Corpuscular HGB Conc 33.9 g/dl (31.0-36.0); Mean Corpuscular Hemoglobin 29.8 pg (27.0-33.0); Mean Corpuscular Volume 87.9 fL (80.0-98.0); Mean Platelet Volume 11.1 fL (9.4-12.4); PLT CLUMP 1; Red Blood Count 3.15 X10*6/uL (4.60-5.80); Red Cell Distribution Width 12.6 % (11.0-16.0)
[2022-07-22 06:24] LABS: White Blood Count 8.1 X10*3/uL (4.8-10.8)
[2022-07-22 06:54] LABS: Anion Gap 15 (12-20); Blood Urea Nitrogen 47 mg/dL (9-16); Calcium 8.6 mg/dL (8.4-10.2); Carbon Dioxide 23 mmol/L (22-29); Chloride 98 mmol/L (96-108); Creatinine Clr Calc Pharmacy 22.9; Estimated Glomerular Filt Rate 15; Glucose Fasting 88 mg/dL (60-99); Potassium 4.9 mmol/L (3.3-5.1); Sodium 131 mmol/L (135-145)
[2022-07-22 07:10] LABS: Glucose, Whole Blood 119 mg/dL (60-115)
[2022-07-22 07:25] LABS: Estimated Average Glucose 126 mg/dL
[2022-07-22] MEDS: Famotidine 20 MG TABLET PO (07:46)
[2022-07-22] MEDS: Cholecalciferol (Vitamin D3) 25 MCG TABLET 50 MCG PO (07:46)
[2022-07-22] MEDS: Venlafaxine HCl ER 150 MG CAP.ER.24H PO (07:46)
[2022-07-22] MEDS: buPROPion HCl XL 150 MG TAB.ER.24H PO (07:46)
[2022-07-22] MEDS: Gabapentin 300 MG CAPSULE PO ×2 (07:46→20:59)
[2022-07-22] MEDS: Insulin Glargine,Hum.rec.anlog 100 UNIT/ML 10 ML VIAL 15 UNIT SUBCUT (07:46)
--- NOTE | 2022-07-22 08:47 | MHC.CM.PN ---
CM met with Patient at bedside and addressed IMM with him, providing him with the original and placing a copy on the chart. Patient lives in an apartment with his Sister and he uses a cane to assist with mobility. Patient was just dc from [facility] on 07/18/22 and he is now active with [facility]. Home/resume vna is the goal and CM has initiated and will follow for dc planning. Patient's HCP is on file. Patient received the Covid/J&J vax and his PCP is Dr. Sarthak Spencer.
--- NOTE | 2022-07-22 09:50 | PHA.MEDREC ---
Addendum entered by Lillie León RPh 07/22/22 10:09: [facility] HAS REVIEWED MED REC Original Note: Pharmacy Consult ? Medication Reconciliation Pharmacy has completed the medication reconciliation. Spoke to patient to confirm meds. Patient was recently discharged 07/01/22. No changes to medications.
[2022-07-22] MEDS: Isosorbide Mononitrate 30 MG TAB.ER.24H PO (10:21)
[2022-07-22] MEDS: Labetalol HCL 100 MG TABLET 300 MG PO ×2 (10:22→20:59)
[2022-07-22 10:59] LABS: Glucose, Whole Blood 170 mg/dL (60-115)
--- NOTE | 2022-07-22 11:49 | HO.PM.IMPN ---
Subjective Subjective Date of Service: 07/22/22 Interval History: Seen and evaluated this morning Feels better already BP on the higher end this morning Stable H&H Cr trending down No otyher overight events Physical Exam Vital Signs: Vital Signs: Last Vital Signs Temp 97.6 F 07/22/22 11:03 Pulse 94 07/22/22 11:03 Resp 20 07/22/22 11:03 BP 178/80 H 07/22/22 11:03 Pulse Ox 95 07/22/22 11:03 O2 Del Method Room Air 07/22/22 11:03 BMI result Body Mass Index 30.4 Const: Other: Constitutional : Awake, interactive, not in distress Neck : Normal inspection, Supple Cardiovascular : RRR, no JVP, no lower extremity edema Respiratory : good bilateral air entry, no crackles, wheezes or rhonchi Gastrointestinal: soft, lax, Normal bowel sounds, Non tender Skin : Warm, Dry Neurological : Alert & oriented x3, No focal deficit Objective Data Active Medications Bupropion HCl (Bupropion Hcl Xl 150 Mg Tab.Er.24h) 150 mg PO DAILY [facility] Last Admin: 07/22/22 07:46 Dose: 150 mg Documented By: GUI Clonazepam (Clonazepam 0.5 Mg Tablet) 0.5 mg PO TID PRN PRN Reason: anxiety Famotidine (Famotidine 20 Mg Tablet) 20 mg PO DAILY [facility] Last Admin: 07/22/22 07:46 Dose: 20 mg Documented By: GUI Gabapentin (Gabapentin 300 Mg Capsule) 300 mg PO BID [facility] Last Admin: 07/22/22 07:46 Dose: 300 mg Documented By: GUI Glucose (Glucose Gel 15 Gm Gel..Gram.) 15 gm PO Q15M PRN; Protocol PRN Reason: per Hypoglycemia Standing Ord. Heparin Sodium (Porcine) (Heparin Sodium,Porcine 5,000 Unit/Ml Vial) 5,000 unit SUBCUT Q8H [facility] Last Admin: 07/22/22 05:50 Dose: 5,000 unit Documented By: DYLON Sodium Chloride (Ns) 1,000 mls @ 50 mls/hr IVCONT .Q20H [facility] Last Infusion: 07/22/22 02:17 Dose: 0 mls/hr Documented By: MANSI-ABBEY Dextrose (D10) 250 mls @ 750 mls/hr IV Q15M PRN; Protocol PRN Reason: per Hypoglycemia Standing Ord. Insulin Glargine (Insulin Glargine,Hum.Rec.Anlog 100 Unit/Ml 10 Ml Vial) 15 unit SUBCUT DAILY [facility] Last Admin: 07/22/22 07:46 Dose: 15 unit Documented By: GUI Insulin Human Lispro (Insulin Lispro 100 Unit/Ml 3 Ml Vial) 0 unit SUBCUT QIDACHS [facility]; Protocol Last Admin: 07/22/22 07:27 Dose: Not Given Documented By: GUI Non-Admin Reason: No Insulin Coverage Isosorbide Mononitrate (Isosorbide Mononitrate 30 Mg Tab.Er.24h) 30 mg PO DAILY [facility]; Protocol Last Admin: 07/22/22 10:21 Dose: 30 mg Documented By: GUI Labetalol HCl (Labetalol Hcl 100 Mg Tablet) 300 mg PO BID [facility] Last Admin: 07/22/22 10:22 Dose: 300 mg Documented By: GUI Meclizine HCl (Meclizine Hcl 25 Mg Tablet) 25 mg PO Q6H PRN PRN Reason: Dizziness Pharmacy Consult (Consult Rx Perform Med Rec) 1 each MISCELLANE ONCE PRN PRN Reason: Consult order Sodium Chloride (0.9 % Sodium Chloride Flush 3 Ml Syringe) 3 ml IVFLUSH QSHIFT [facility] Last Admin: 07/22/22 07:46 Dose: Not Given Documented By: GUI Non-Admin Reason: IV Running Venlafaxine HCl (Venlafaxine Hcl Er 150 Mg Cap.Er.24h) 150 mg PO DAILY [facility] Last Admin: 07/22/22 07:46 Dose: 150 mg Documented By: GUI Vitamin D (Cholecalciferol (Vitamin D3) 25 Mcg Tablet) 50 mcg PO DAILY [facility] Last Admin: 07/22/22 07:46 Dose: 50 mcg Documented By: GUI Labs 07/22/22 06:01 07/22/22 06:01 Labs: Laboratory Results - last 24 hr 07/21/22 07/21/22 07/21/22 22:04 22:04 22:04 MCV 84.2 MCH 29.9 MCHC 35.5 RDW 12.7 Plt Count 199 MPV 10.0 Immature Gran % (Auto) 0.5 H Neut % (Auto) 73.2 H Lymph % (Auto) 13.8 L [place] % (Auto) 10.0 Eos % (Auto) 1.8 Baso % (Auto) 0.7 Lymph # (Auto) 1.4 [place] # (Auto) 1.0 Eos # (Auto) 0.2 Baso # (Auto) 0.1 Abs Immat Gran (auto) 0.05 H Absolute Neuts (auto) 7.5 Absolute Nucleated RBC 0.000 Nucleated RBC % (auto) 0.0 Anion Gap 17 Estim Creat Clear Calc 20.5 Estimated GFR 14 POC Glucose Random Glucose 114 Fasting Glucose Estimat Average Glucose Hemoglobin A1c % Calcium 8.7 Phosphorus 4.3 Magnesium 1.5 L Total Bilirubin 0.3 AST 45 H ALT 53 H Alkaline Phosphatase 199 H Troponin I High Sens 5.8 Total Protein 7.0 Albumin 3.8 TSH 1.01 07/21/22 07/22/22 07/22/22 22:04 06:01 06:01 MCV 87.9 MCH 29.8 MCHC 33.9 RDW 12.6 Plt Count TNP MPV 11.1 Immature Gran % (Auto) Neut % (Auto) Lymph % (Auto) [place] % (Auto) Eos % (Auto) Baso % (Auto) Lymph # (Auto) [place] # (Auto) Eos # (Auto) Baso # (Auto) Abs Immat Gran (auto) Absolute Neuts (auto) Absolute Nucleated RBC 0.000 Nucleated RBC % (auto) 0.0 Anion Gap 15 Estim Creat Clear Calc 22.9 Estimated GFR 15 POC Glucose Random Glucose Fasting Glucose 88 Estimat Average Glucose 126 Hemoglobin A1c % 6.0 Calcium 8.6 Phosphorus Magnesium Total Bilirubin AST ALT Alkaline Phosphatase Troponin I High Sens Total Protein Albumin TSH 07/22/22 07/22/22 07:04 10:54 MCV MCH MCHC RDW Plt Count MPV Immature Gran % (Auto) Neut % (Auto) Lymph % (Auto) [place] % (Auto) Eos % (Auto) Baso % (Auto) Lymph # (Auto) [place] # (Auto) Eos # (Auto) Baso # (Auto) Abs Immat Gran (auto) Absolute Neuts (auto) Absolute Nucleated RBC Nucleated RBC % (auto) Anion Gap Estim Creat Clear Calc Estimated GFR POC Glucose 119 H 170 H Random Glucose Fasting Glucose Estimat Average Glucose Hemoglobin A1c % Calcium Phosphorus Magnesium Total Bilirubin AST ALT Alkaline Phosphatase Troponin I High Sens Total Protein Albumin TSH Assessment and Plan (1) Vertigo: Status: Acute (2) LEDA (acute kidney injury): Status: Acute (3) Acute hyponatremia: Status: Acute (4) Acute hyperkalemia: Status: Acute Plan 56M type 2 diabetes, Garcia, hypertension, depression, conversion disorder, chronic constipation, vertigo, CKD stage iv, HFpEF, and obesity presented with dizziness found to have leda, hyperkalemia, hyponatremia presyncope likely due to hypotension due to bp meds, dehydration monitor on tele to do PT eval LEDA on CKD IV with hyperkalemia improving continue ivf monitor bmp nephro eval acute hyponatremia improving monitor on fluids DM with hyperglycemia insulin HTN restart Labetalol and Isosorbid Hold Hydralazine , Nifedipine and Torsemide, to restart gradually HFpef appears dry, hold diuretics monitor closely while on ivf depression effexor obesity, GARCIA weight loss recommended dvt prophylaxis - hep sq full code patient with significant leda and electrolyte abnormalities at risk for further decompensation due to DM, CKDIV, hfpef, therefore, expected to require overnight inpateint stay Time Spent With Patient Time: Total time managing care of this patient today ____ minutes. Quality Stroke Does the patient have a stroke diagnosis?: No VTE Prior VTE?: No VTE Risk Level:: Medical - moderate - high VTE Device Contraindication: Treatment Not Indicated VTE Drug Contraindication: N/A - Med Ordered
[2022-07-22] MEDS: Insulin Lispro 100 UNIT/ML 3 ML VIAL SUBCUT ×2 (12:33→21:00)
[2022-07-22] MEDS: hydrALAZINE HCl 50 MG TABLET 100 MG PO ×2 (12:33→20:59)
--- NOTE | 2022-07-22 15:26 | P.CONNP_ITS ---
History of Present Illness Reason for Consult Consult date: 07/22/22 Chief Complaint Chief complaint: LEDA History of Present Illness Narrative: 56 year old male with CKD stage 3, recent LEDA among multiple other medical issues presented with dizziness. patient was recently discharged from [facility] for sepsis/pneumonia/leda, at that time bp meds were increased due to uncontrolled hypertension. discharged to SNF. He has been home for a few days. He was seen 2 days prior to presentation in ED for chest pain and elevated pressures when he was given bp meds and discharged home. Yesterday he was feeling light headed and almost passed out twice without any chest pain or sob. His sbp was relatively low - 118, creatinine increased from 2.8 to 4.52, K to 5.8, sodium is 125, was 136. He was admitted for further management. Nephrology has been consulted to assist in his clinical care during his current hospital stay Review of Systems Review of Systems Yes all other systems are reviewed and are negative PMFSH Past Medical History Medical History Acute hyponatremia Anxiety Chronic hyperglycemia CKD (chronic kidney disease) CKD (chronic kidney disease) CKD (chronic kidney disease) stage 3, GFR 30-59 ml/min CKD (chronic kidney disease) stage 4, GFR 15-29 ml/min Depression Diabetes Diabetes mellitus with coincident hypertension Diabetes type 2, uncontrolled Diabetic nephropathy associated with type 2 diabetes mellitus Diabetic neuropathy associated with type 2 diabetes mellitus Dyslipidemia Essential hypertension GERD (gastroesophageal reflux disease) Hepatitis High cholesterol Hypercalcemia Hyperlipidemia Hypertension custodial (current) use of insulin Metabolic acidosis Neuropathy New onset of congestive heart failure Obesity Obesity (BMI 30-39.9) Severe depression Sleep apnea Type 2 diabetes mellitus with obesity Vitamin D deficiency Family History Family History Father Diabetes Mother No problems noted. Surgical History Surgical History H/O colonoscopy History of esophagogastroduodenoscopy (EGD) Hx of arthroscopy of knee Hx of arthroscopy of right knee Social History Social History Household Members: Family Household Members Other:: SISTER Housing: Apartment Do you presently have visiting nurse or other home services: Yes Alcohol intake: never Patient Tobacco Use Status: Never used Tobacco Smoked in Last 30 Days: No e-Cigarette/Vaping Use: Never Used Second Hand Smoke Exposure: Yes (HISTORY OF SECOND HAND SMOKE EXPOSURE) Use of substances other than those prescribed or required for medical reasons: No Currently Displaying Signs/Symptoms of Drug Intoxication Withdrawal: No Have you been hit, kicked, punched, or otherwise hurt by someone within the past year? If so, by whom?: No Do you feel safe in your current relationship?: No Current Relationship Is there a partner from a previous relationship who is making you feel unsafe now?: No Are you made to feel afraid or neglected: No Advance Directives: Yes Advance Directives on File: Yes Advance Directives Date on File: 05/05/20 Do you have thoughts of harming others: None Do you have a plan to hurt others: No Plan Nutrition Risks: No Nutritional Risk service: No Current occupational status: disabled Current occupation: right handed Cognitive needs: No Hearing needs: No Vision needs: No Meds Allergies Allergy/AdvReac Type Severity Reaction Status Date / Time cephalexin [From KEFLEX] Allergy Mild ITCHY Verified 05/31/22 14:14 THROAT lisinopril [LISINOPRIL] Allergy Unknown SWELLING Verified 05/31/22 14:14 COUGH Active Medications: Current Medications Bupropion HCl (Bupropion Hcl Xl 150 Mg Tab.Er.24h) 150 mg PO DAILY [facility] Last Admin: 07/22/22 07:46 Dose: 150 mg Clonazepam (Clonazepam 0.5 Mg Tablet) 0.5 mg PO TID PRN PRN Reason: anxiety Famotidine (Famotidine 20 Mg Tablet) 20 mg PO DAILY [facility] Last Admin: 07/22/22 07:46 Dose: 20 mg Gabapentin (Gabapentin 300 Mg Capsule) 300 mg PO BID [facility] Last Admin: 07/22/22 07:46 Dose: 300 mg Glucose (Glucose Gel 15 Gm Gel..Gram.) 15 gm PO Q15M PRN; Protocol PRN Reason: per Hypoglycemia Standing Ord. Heparin Sodium (Porcine) (Heparin Sodium,Porcine 5,000 Unit/Ml Vial) 5,000 unit SUBCUT Q8H [facility] Last Admin: 07/22/22 05:50 Dose: 5,000 unit Hydralazine HCl (Hydralazine Hcl 50 Mg Tablet) 100 mg PO TID [facility]; Protocol Last Admin: 07/22/22 14:30 Dose: Not Given Sodium Chloride (Ns) 1,000 mls @ 50 mls/hr IVCONT .Q20H [facility] Last Infusion: 07/22/22 02:17 Dose: Infused Dextrose (D10) 250 mls @ 750 mls/hr IV Q15M PRN; Protocol PRN Reason: per Hypoglycemia Standing Ord. Insulin Glargine (Insulin Glargine,Hum.Rec.Anlog 100 Unit/Ml 10 Ml Vial) 15 unit SUBCUT DAILY [facility] Last Admin: 07/22/22 07:46 Dose: 15 unit Insulin Human Lispro (Insulin Lispro 100 Unit/Ml 3 Ml Vial) 0 unit SUBCUT QIDACHS [facility]; Protocol Last Admin: 07/22/22 12:33 Dose: 2 unit Isosorbide Mononitrate (Isosorbide Mononitrate 30 Mg Tab.Er.24h) 30 mg PO DAILY [facility]; Protocol Last Admin: 07/22/22 10:21 Dose: 30 mg Labetalol HCl (Labetalol Hcl 100 Mg Tablet) 300 mg PO BID [facility] Last Admin: 07/22/22 10:22 Dose: 300 mg Meclizine HCl (Meclizine Hcl 25 Mg Tablet) 25 mg PO Q6H PRN PRN Reason: Dizziness Pharmacy Consult (Consult Rx Perform Med Rec) 1 each MISCELLANE ONCE PRN PRN Reason: Consult order Sodium Chloride (0.9 % Sodium Chloride Flush 3 Ml Syringe) 3 ml IVFLUSH QSHIFT [facility] Last Admin: 07/22/22 07:46 Dose: Not Given Venlafaxine HCl (Venlafaxine Hcl Er 150 Mg Cap.Er.24h) 150 mg PO DAILY [facility] Last Admin: 07/22/22 07:46 Dose: 150 mg Vitamin D (Cholecalciferol (Vitamin D3) 25 Mcg Tablet) 50 mcg PO DAILY [facility] Last Admin: 07/22/22 07:46 Dose: 50 mcg Home Medications Medication Instructions Recorded Confirmed Last Taken Type venlafaxine 150 mg 150 mg PO DAILY 10/30/21 07/22/22 07/21/22 09:00 History capsule,extended release 24 hr multivitamin with folic acid 400 1 tab PO DAILY 03/06/22 07/22/22 07/21/22 09:00 History mcg tablet (Tab-A-George) pen needle, diabetic 32 gauge x #50 ea 12/06/22 03/04/23 Unknown History 06/14 (Ultracare Pen Needle) bupropion HCl 150 mg 24 hr tablet, 150 mg PO DAILY 05/16/22 07/22/22 07/21/22 09:00 History extended release insulin aspart U-100 100 unit/mL 14 unit subcut TIDAC 05/16/22 07/22/22 07/21/22 18:00 History (3 mL) subcutaneous pen (Novolog FlexPen U-100 Insulin aspart) insulin glargine U-300 conc 300 70 unit subcut DAILY 05/16/22 07/22/22 07/21/22 09:00 History unit/mL (3 mL) subcutaneous pen (Toujeo Max U-300 SoloStar) meclizine 25 mg tablet 25 mg PO Q6H PRN Dizziness 05/16/22 07/22/22 06/18/22 History trazodone 150 mg tablet 150 mg PO BEDTIME 05/16/22 07/22/22 07/20/22 History Physical Exam Vital Signs: Last Vital Signs Temp 97.6 F 07/22/22 11:03 Pulse 94 07/22/22 11:03 Resp 20 07/22/22 11:03 BP 178/80 H 07/22/22 11:03 Pulse Ox 95 07/22/22 11:03 O2 Del Method Room Air 07/22/22 11:03 BMI result Body Mass Index 30.4 Const General: no acute distress Orientation/consciousness: patient oriented x3 Eyes EOM: EOMs intact bilaterally Neck Neck: Yes supple Resp Auscultation: diminished lung sounds Cardio Rate: regular rate GI Palpation (GI): Soft to palpation Neuro General: patient oriented x3 and moves all extremities Results Lab Results 07/22/22 06:01 07/22/22 06:01 Lab results: Chemistry 07/21/22 07/22/22 22:04 06:01 Sodium 125 L 131 L Potassium 5.8 H D 4.9 Carbon Dioxide 22 23 BUN 47 H 47 H Creatinine 4.52 H* 4.05 H* Calcium 8.7 8.6 Phosphorus 4.3 Hematology 07/21/22 07/22/22 22:04 06:01 WBC 10.3 8.1 Hgb 9.3 L 9.4 L Plt Count 199 TNP Assessment and Plan (1) LEDA (acute kidney injury): Status: Acute Plan LEDA due to tubular injury Has CKD 3 at baseline Urine output good Serum creatinine improving BP needs to be better controlled Shall optimize BP medications Labs AM. Shall closely follow up Procedures Date of Service Date of Service: 07/22/22
[2022-07-22] MEDS: 0.9 % Sodium Chloride Flush 3 ML SYRINGE IVFLUSH (15:31)
[2022-07-22 15:51] LABS: Glucose, Whole Blood 111 mg/dL (60-115)
[2022-07-22 20:16] LABS: Glucose, Whole Blood 156 mg/dL (60-115)
[2022-07-23] VITALS (12 sets, daily range): BP systolic 122–208; BP diastolic 57–100; PULSE 75–92; RESP 20; TEMP 36.1–36.9; O2SAT 97–98
--- NOTE | 2022-07-23 03:40 | MHC.PIE ---
P.BP 208/96 I.ELEVATED BP REPORTED TO DR QUEZADA.NEW ORDER FOR NIFEDIPINE 120MG PO DAILY, GIVE FIRST DOSE NOW GIVEN. E.PT UPDATED,MED GIVEN.CONT TO MONITOR.
[2022-07-23] MEDS: NIFEdipine ER 60 MG TAB.ER.24 120 MG PO (03:57)
[2022-07-23] MEDS: Heparin Sodium,Porcine 5,000 UNIT/ML VIAL 5000 UNIT SUBCUT ×3 (05:34→22:57)
[2022-07-23 07:15] LABS: Glucose, Whole Blood 93 mg/dL (60-115)
[2022-07-23 07:30] LABS: Anion Gap 12 (12-20); Blood Urea Nitrogen 36 mg/dL (9-16); Calcium 9.4 mg/dL (8.4-10.2); Carbon Dioxide 27 mmol/L (22-29); Chloride 106 mmol/L (96-108); Creatinine Clr Calc Pharmacy 32.8; Estimated Glomerular Filt Rate 23; Glucose Random 89 mg/dL (60-115); Potassium 4.9 mmol/L (3.3-5.1); Sodium 140 mmol/L (135-145)
[2022-07-23] MEDS: 0.9 % Sodium Chloride Flush 3 ML SYRINGE IVFLUSH ×2 (09:25→20:27)
[2022-07-23] MEDS: Famotidine 20 MG TABLET PO (09:26)
[2022-07-23] MEDS: Cholecalciferol (Vitamin D3) 25 MCG TABLET 50 MCG PO (09:26)
[2022-07-23] MEDS: Venlafaxine HCl ER 150 MG CAP.ER.24H PO (09:26)
[2022-07-23] MEDS: hydrALAZINE HCl 50 MG TABLET 100 MG PO ×3 (09:26→20:27)
[2022-07-23] MEDS: Labetalol HCL 100 MG TABLET 300 MG PO ×2 (09:26→20:27)
[2022-07-23] MEDS: buPROPion HCl XL 150 MG TAB.ER.24H PO (09:26)
[2022-07-23] MEDS: Gabapentin 300 MG CAPSULE PO ×2 (09:27→20:27)
[2022-07-23] MEDS: Insulin Glargine,Hum.rec.anlog 100 UNIT/ML 10 ML VIAL 15 UNIT SUBCUT (09:30)
[2022-07-23] MEDS: Isosorbide Mononitrate 30 MG TAB.ER.24H PO (09:34)
--- NOTE | 2022-07-23 10:22 | P.PNIM_ITS ---
Subjective Subjective Date of Service: 07/23/22 Interval History: Seen and evaluated this morning Feels better already BP still significantly elevated Stable H&H Cr trending down No otyher overight events Review of Systems Review of Systems: Yes all other systems are reviewed and are negative Physical Exam Vital Signs: Vital Signs: Last Vital Signs Temp 97.8 F 07/23/22 07:14 Pulse 91 07/23/22 08:37 Resp 20 07/23/22 07:14 BP 143/77 H 07/23/22 08:37 Pulse Ox 97 07/23/22 07:14 O2 Del Method Room Air 07/23/22 07:14 BMI result Body Mass Index 30.4 Const: Other: Constitutional : Awake, interactive, not in distress Neck : Normal inspection, Supple Cardiovascular : RRR, no JVP, no lower extremity edema Respiratory : good bilateral air entry, no crackles, wheezes or rhonchi Gastrointestinal: soft, lax, Normal bowel sounds, Non tender Skin : Warm, Dry Neurological : Alert & oriented x3, No focal deficit Objective Data Active Medications Bupropion HCl (Bupropion Hcl Xl 150 Mg Tab.Er.24h) 150 mg PO DAILY [facility] Last Admin: 07/23/22 09:26 Dose: 150 mg Documented By: DONNIE Clonazepam (Clonazepam 0.5 Mg Tablet) 0.5 mg PO TID PRN PRN Reason: anxiety Famotidine (Famotidine 20 Mg Tablet) 20 mg PO DAILY [facility] Last Admin: 07/23/22 09:26 Dose: 20 mg Documented By: DONNIE Gabapentin (Gabapentin 300 Mg Capsule) 300 mg PO BID [facility] Last Admin: 07/23/22 09:27 Dose: 300 mg Documented By: DONNIE Glucose (Glucose Gel 15 Gm Gel..Gram.) 15 gm PO Q15M PRN; Protocol PRN Reason: per Hypoglycemia Standing Ord. Heparin Sodium (Porcine) (Heparin Sodium,Porcine 5,000 Unit/Ml Vial) 5,000 unit SUBCUT Q8H [facility] Last Admin: 07/23/22 05:34 Dose: 5,000 unit Documented By: TAMI Hydralazine HCl (Hydralazine Hcl 50 Mg Tablet) 100 mg PO TID [facility]; Protocol Last Admin: 07/23/22 09:26 Dose: 100 mg Documented By: DONNIE Dextrose (D10) 250 mls @ 750 mls/hr IV Q15M PRN; Protocol PRN Reason: per Hypoglycemia Standing Ord. Insulin Glargine (Insulin Glargine,Hum.Rec.Anlog 100 Unit/Ml 10 Ml Vial) 15 unit SUBCUT DAILY [facility] Last Admin: 07/23/22 09:30 Dose: 15 unit Documented By: DONNIE Insulin Human Lispro (Insulin Lispro 100 Unit/Ml 3 Ml Vial) 0 unit SUBCUT QIDACHS [facility]; Protocol Last Admin: 07/23/22 07:39 Dose: Not Given Documented By: DONNIE Non-Admin Reason: No Insulin Coverage Isosorbide Mononitrate (Isosorbide Mononitrate 30 Mg Tab.Er.24h) 30 mg PO DAILY [facility]; Protocol Last Admin: 07/23/22 09:34 Dose: 30 mg Documented By: DONNIE Labetalol HCl (Labetalol Hcl 100 Mg Tablet) 300 mg PO BID [facility] Last Admin: 07/23/22 09:26 Dose: 300 mg Documented By: DONNIE Meclizine HCl (Meclizine Hcl 25 Mg Tablet) 25 mg PO Q6H PRN PRN Reason: Dizziness Nifedipine (Nifedipine Er 60 Mg Tab.Er.24) 120 mg PO DAILY [facility]; Protocol Last Admin: 07/23/22 03:57 Dose: 120 mg Documented By: TAMI Pharmacy Consult (Consult Rx Perform Med Rec) 1 each MISCELLANE ONCE PRN PRN Reason: Consult order Sodium Chloride (0.9 % Sodium Chloride Flush 3 Ml Syringe) 3 ml IVFLUSH [facility] Last Admin: 07/23/22 09:25 Dose: 3 ml Documented By: DONNIE Venlafaxine HCl (Venlafaxine Hcl Er 150 Mg Cap.Er.24h) 150 mg PO DAILY [facility] Last Admin: 07/23/22 09:26 Dose: 150 mg Documented By: DONNIE Vitamin D (Cholecalciferol (Vitamin D3) 25 Mcg Tablet) 50 mcg PO DAILY [facility] Last Admin: 07/23/22 09:26 Dose: 50 mcg Documented By: DONNIE Labs 07/22/22 06:01 07/23/22 06:50 Labs: Laboratory Results - last 24 hr 07/22/22 07/22/2207/22/23 10:54 15:26 20:12 Anion Gap Estim Creat Clear Calc Estimated GFR POC Glucose 170 H 111 156 H Random Glucose Calcium 07/23/22 07/23/22 06:50 07:09 Anion Gap 12 Estim Creat Clear Calc 32.8 Estimated GFR 23 POC Glucose 93 Random Glucose 89 Calcium 9.4 D Assessment and Plan (1) LEDA (acute kidney injury): Status: Acute (2) Acute hyperkalemia: Status: Acute (3) Acute hyponatremia: Status: Acute Plan 56M type 2 diabetes, Garcia, hypertension, depression, conversion disorder, chronic constipation, vertigo, CKD stage iv, HFpEF, and obesity presented with dizziness found to have leda, hyperkalemia, hyponatremia presyncope likely due to hypotension due to bp meds, dehydration no recurrence monitor on tele, no abnormal rhythm pending PT eval LEDA on CKD IV with hyperkalemia improving DC ivf monitor bmp nephro eval acute hyponatremia resolved DM with hyperglycemia insulin Uncontrolled HTN Labetalol and Isosorbid resume Hydralazine , Nifedipine Torsemide on hold Nephro following check orthostatic vitals HFpef appears dry, hold diuretics monitor closely while on ivf depression effexor obesity, GARCIA weight loss recommended dvt prophylaxis - hep sq full code patient with significant leda and electrolyte abnormalities at risk for further decompensation due to DM, CKDIV, hfpef, therefore, expected to require overnight inpateint stay Time Spent With Patient Time: Total time managing care of this patient today ____ minutes. Quality Stroke Does the patient have a stroke diagnosis?: No VTE Prior VTE?: No VTE Risk Level:: Medical - moderate - high VTE Device Contraindication: Treatment Not Indicated VTE Drug Contraindication: N/A - Med Ordered
--- NOTE | 2022-07-23 11:08 | PM.PNNEP ---
Subjective Subjective Date of Service: 07/23/22 Interval history: Seen and evaluated this morning ;Feels better; Denied any new complaints Physical Exam Vital Signs: Vital Signs: Last Vital Signs Temp 97.8 F 07/23/22 07:14 Pulse 91 07/23/22 08:37 Resp 20 07/23/22 07:14 BP 143/77 H 07/23/22 08:37 Pulse Ox 97 07/23/22 07:14 O2 Del Method Room Air 07/23/22 07:14 BMI result Body Mass Index 30.4 Const: General: comfortable Orientation/consciousness: patient oriented x3 Eyes: EOM: EOMs intact bilaterally Neck: Neck: Yes supple Resp: Auscultation: diminished lung sounds Cardio: Rate: regular rate GI: Palpation (GI): Soft to palpation Skin: General skin exam: no rashes or lesions noted Neuro: General: patient oriented x3 and moves all extremities Objective Data Labs 07/22/22 06:01 07/23/22 06:50 Labs: Laboratory Results - last 24 hr 07/22/22 07/22/22 07/23/22 15:26 20:12 06:50 Sodium 140 Potassium 4.9 Chloride 106 Carbon Dioxide 27 Anion Gap 12 BUN 36 H Creatinine 2.83 H Estim Creat Clear Calc 32.8 Estimated GFR 23 POC Glucose 111 156 H Random Glucose 89 Calcium 9.4 D 07/23/22 07:09 Sodium Potassium Chloride Carbon Dioxide Anion Gap BUN Creatinine Estim Creat Clear Calc Estimated GFR POC Glucose 93 Random Glucose Calcium Procedures Date of Service Date of Service: 07/23/22 Assessment & Plan Assessment and plan (1) LEDA (acute kidney injury): Status: Acute Assessment and Plan: LEDA due to tubular injury Has CKD 3 at baseline Urine output good Serum creatinine improving BP better controlled Shall optimize BP medications with time Shall arrange close follow up with me when D/Jeremie Progress Note: Quality Stroke Does the patient have a stroke diagnosis?: No
[2022-07-23 11:16] LABS: Glucose, Whole Blood 158 mg/dL (60-115)
[2022-07-23] MEDS: Insulin Lispro 100 UNIT/ML 3 ML VIAL SUBCUT (12:22)
[2022-07-23] MEDS: Acetaminophen 325 MG TABLET 975 MG PO ×2 (15:27→21:36)
[2022-07-23 16:58] LABS: Glucose, Whole Blood 99 mg/dL (60-115)
[2022-07-23 20:11] LABS: Glucose, Whole Blood 147 mg/dL (60-115)
[2022-07-23] MEDS: traZODone HCL 50 MG TABLET 150 MG PO (20:27)
[2022-07-24] VITALS: BP 130/58; PULSE 60; RESP 20; TEMP 36.9; O2SAT 93
[2022-07-24 04:00] VITALS: BP 127/60; PULSE 69; RESP 18; TEMP 36.9; O2SAT 94
[2022-07-24] MEDS: Heparin Sodium,Porcine 5,000 UNIT/ML VIAL 5000 UNIT SUBCUT (05:26)
[2022-07-24 07:34] VITALS: BP 168/79; PULSE 81; RESP 18; TEMP 36.3; O2SAT 98
[2022-07-24 07:57] LABS: Glucose, Whole Blood 79 mg/dL (60-115)
[2022-07-24 08:06] LABS: Anion Gap 15 (12-20); Blood Urea Nitrogen 30 mg/dL (9-16); Calcium 9.3 mg/dL (8.4-10.2); Carbon Dioxide 24 mmol/L (22-29); Chloride 105 mmol/L (96-108); Creatinine Clr Calc Pharmacy 37.8; Estimated Glomerular Filt Rate 27; Glucose Random 70 mg/dL (60-115); Potassium 4.2 mmol/L (3.3-5.1); Sodium 140 mmol/L (135-145)
[2022-07-24] MEDS: 0.9 % Sodium Chloride Flush 3 ML SYRINGE IVFLUSH (09:14)
[2022-07-24] MEDS: Isosorbide Mononitrate 30 MG TAB.ER.24H PO (09:14)
[2022-07-24] MEDS: Gabapentin 300 MG CAPSULE PO (09:14)
[2022-07-24] MEDS: Labetalol HCL 100 MG TABLET 300 MG PO (09:14)
[2022-07-24] MEDS: Cholecalciferol (Vitamin D3) 25 MCG TABLET 50 MCG PO (09:15)
[2022-07-24] MEDS: hydrALAZINE HCl 50 MG TABLET 100 MG PO (09:15)
[2022-07-24] MEDS: Venlafaxine HCl ER 150 MG CAP.ER.24H PO (09:18)
[2022-07-24] MEDS: buPROPion HCl XL 150 MG TAB.ER.24H PO (09:18)
[2022-07-24] MEDS: Famotidine 20 MG TABLET PO (09:19)
[2022-07-24] MEDS: Insulin Glargine,Hum.rec.anlog 100 UNIT/ML 10 ML VIAL 15 UNIT SUBCUT (09:21)
--- NOTE | 2022-07-24 09:57 | W.MHC.F2F ---
Service Date Service Date: 07/24/22 Encounter Date of encounter: 07/24/22 Reasons for Services Signs and symptoms assessed: PHysical deconditioning BP monitoring Reason for senior care: medication management and teach disease management Reason for physical therapy: home safety and mobility and therapeutic exercises Homebound: Leaving the home is medically contraindicated at this time without the asist of a device and/or another person due th the listed conditions above and below. Reason homebound: unsteady gait / fall risk Certification: Based on the above findings, I certify that this patient is confined to the home and needs intermittent senior care care, physical therapy and/or speech therapy, or continues to need occupational therapy. The patient is under my care, and I have initiated the establishment of the plan of care. The patient will be followed by a physician who will periodically review the plan of care. Time Spent With Patient Time: Total time managing care of this patient today ____ minutes.
--- NOTE | 2022-07-24 09:59 | P.DS_ITS ---
DS: Providers Provider Date of Service: 07/24/22 Date of admission: 07/22/22 00:48 Primary care physician: Sarthak Spencer MD Consults: 07/21/22 23:46 Consult to Nephrology Routine Consulting Provider: Anibal Hall Reason for consultation: leda on ckd iv DS: Diagnosis Discharge Diagnosis (1) LEDA (acute kidney injury): Status: Acute (2) Acute hyperkalemia: Status: Acute (3) Acute hyponatremia: Status: Acute (4) Vertigo: Status: Acute DS: Summary Hospital Course Hospital Course: Admission note HPI 56M type 2 diabetes, Yang, hypertension, depression, conversion disorder, chronic constipation, vertigo, CKD stage 3, HFpEF, and obesity presented with dizziness. patient was recently discharged from [facility] for sepsis/pneumonia/leda, at that time bp meds were increased due to uncontrolled hypertension. discharged to SNF. has been home for a few days, was seen 2 days ptp in ED for chest pain and elevated pressures, was given bp meds and discharged home. on day of ptp feeling light headed and almost passed out twice, no chest pain or sob. sbp relatively low - 118, creatinine increased from 2.8 to 4.52, K to 5.8, sodium is 125, was 136. ekg with diffuse mild ST elevations favoring early repolarization, trop negative. Hospital course The patient was admitted for evaluation of presyncope likely due to hypotension due to acute kidney injury and multiple meds. BP improved after holding his meds with no recurrence of dizziness spells. evaluated by PT team who recommended home VNA evaluation. Noted to have LEDA on CKD IV with hyperkalemia and hyponatremia likely from being on Torsemide which was hold on admission with improvement of kidney function while on IVF. followed by nephrology team who recommended decreasing the torsemide. decrease to 20mg qotherday. Cr improved to baseline around 2.5. after holding his meds for LEDA noted to have Uncontrolled HTN. all home meds of Labetalol , Isosorbid, Hydralazine and Nifedipine were restarted with fair response and no evidence of orthostatic dizziness. will repeat blood work as outpatient and follow with nephrology team. Continue your home medications Decrease Torsemide to 20 mg every otherday To repeat blood work next week Follow with nephrology as outpatient in 1-2 weeks Monitor blood pressure readings twice daily for next week and report them to PCP\qa internship Time Spent with Patient Time attestation: Total time managing care of this patient today ____ minutes. Discharge coordination time: Greater than 30 minutes Quality: Safe Use of Opioids Does Pt have an Active Cancer Diagnosis on the Problem List?: No Quality: Stroke Does the patient have a stroke diagnosis?: No Physical Exam Vital Signs: Vital Signs: Last Vital Signs Temp 97.4 F 07/24/22 07:34 Pulse 81 07/24/22 07:34 Resp 18 07/24/22 07:34 BP 168/79 H 07/24/22 07:34 Pulse Ox 98 07/24/22 07:34 O2 Del Method Room Air 07/24/22 07:34 BMI result Body Mass Index 30.4 Const: Other: Constitutional : Awake, interactive, not in distress Neck : Normal inspection, Supple Cardiovascular : RRR, no JVP, no lower extremity edema Respiratory : good bilateral air entry, no crackles, wheezes or rhonchi Gastrointestinal: soft, lax, Normal bowel sounds, Non tender Skin : Warm, Dry Neurological : Alert & oriented x3, No focal deficit DS: Data Data Completed and Pending Labs on day of discharge: Laboratory Results - last 24 hr 07/23/22 07/23/22 07/23/22 11:12 16:48 20:01 Sodium Potassium Chloride Carbon Dioxide Anion Gap BUN Creatinine Estim Creat Clear Calc Estimated GFR POC Glucose 158 H 99 147 H Random Glucose Calcium 07/24/22 07/24/22 06:48 07:38 Sodium 140 Potassium 4.2 Chloride 105 Carbon Dioxide 24 Anion Gap 15 BUN 30 H Creatinine 2.46 H Estim Creat Clear Calc 37.8 Estimated GFR 27 POC Glucose 79 Random Glucose 70 Calcium 9.3 Discharge Plan Discharge Anticipated Discharge Date/Time: 07/24/22 09:28 Patient Disposition: Home Health Service Discharge Diagnosis: Acute kidney injury Dizziness Referrals: [facility] [Outside] - 1 Week Sarthak Spencer MD [Primary Care Provider] - 1 Week Discharge Medications: Continued clonazepam 0.5 mg tablet 0.5 mg PO TID PRN (Reason: anxiety) Qty: 90 5RF (DME) lancets [FreeStyle Lancets] 28 gauge misc See Rx Instructions .MEDSUPPLY Qty: 150 5RF Rx Instructions: 4 times a day cholecalciferol (vitamin D3) [D3-2000] 50 mcg (2,000 unit) capsule 50 mcg PO DAILY Qty: 30 11RF omega-3 acid ethyl esters 1 gram capsule 2 cap PO BID 30 Days Qty: 120 11RF (DME) FreeStyle John 14 Day Sensor Kit See Rx Instructions .Route Qty: 1 0RF Rx Instructions: As directed Tradjenta 5 mg tablet 5 mg PO DAILY 30 Days Qty: 30 6RF gabapentin 300 mg capsule 300 mg PO BID Qty: 60 8RF (DME) blood pressure monitor [Blood Pressure Kit] Kit See Rx Instructions .Route Qty: 1 0RF Rx Instructions: As directed nifedipine 60 mg tablet extended release 24hr 120 mg PO DAILY 90 Days Qty: 180 1RF venlafaxine 150 mg capsule,extended release 24hr 150 mg PO DAILY meclizine 25 mg tablet 25 mg PO Q6H PRN (Reason: Dizziness) trazodone 150 mg tablet 150 mg PO BEDTIME insulin aspart U-100 [Novolog FlexPen U-100 Insulin] 100 unit/mL (3 mL) insulin pen 14 unit subcut TIDAC bupropion HCl 150 mg tablet extended release 24 hr 150 mg PO DAILY Toujeo Max U-300 SoloStar 300 unit/mL (3 mL) insulin pen 70 unit subcut DAILY Rx Instructions: in the morning isosorbide mononitrate 30 mg tablet extended release 24 hr 30 mg PO DAILY Qty: 30 0RF hydralazine 100 mg tablet 100 mg PO TID 14 Days Qty: 42 0RF (DME) Blood Pressure Cuff Misc See Rx Instructions .Route Qty: 1 0RF Rx Instructions: As directed multivitamin with folic acid [Tab-A-George] 400 mcg tablet 1 tab PO DAILY (DME) pen needle, diabetic [Ultracare Pen Needle] 32 gauge x 3/16 needle See Rx Instructions .ROUTE .MEDSUPPLY Qty: 50 Rx Instructions: As directed famotidine 20 mg tablet 20 mg PO BID Qty: 180 8RF metoclopramide HCl 5 mg tablet 5 mg PO QID Qty: 360 2RF simethicone 180 mg capsule 180 mg PO TID Qty: 90 1RF labetalol 300 mg tablet 300 mg PO BID Qty: 60 3RF (DME) pen needle, diabetic [BD Kacey 2nd Gen Pen Needle] 32 gauge x 5/32 needle See Rx Instructions .MEDSUPPLY Qty: 400 6RF Rx Instructions: 5 times a day Changed torsemide 20 mg tablet 20 mg PO Q2D Qty: 30 0RF Discharge Orders: Discharge Order (Routine); Ordered 07/24/22 Ordered By: Erica Peres Diet: Advance to usual diet Activity on Discharge: As tolerated Stand Alone Forms: Patient Portal Discharge page Other Ambulatory Orders: Basic Metabolic Panel (Routine) Timeframe: 1 Week Facility: [facility] - Location: Laboratory Ordered By: Erica Peres Care Plan Goals: Read below Health Concerns: Read below Plan of Treatment: Read below Assessment: You were admitted to the hospital for evaluation of dizziness and evidence of acute kidney injury with electrolytes imbalance. Kidney function improved with IV fluids and holding Torsemide as you were followed by qa internship. improved back to baseline. no more episodes of dizziness and blood pressure elevated and you were restarted on your home meds with good response. Continue your home medications Decrease Torsemide to 20 mg every otherday To repeat blood work next week Follow with nephrology as outpatient in 1-2 weeks
--- NOTE | 2022-07-24 10:14 | MHC.CM.PN ---
Patient has been medically cleared for dc to home today, with services. Patient is active with Per MUIR, who has been notified of today's dc. Last IMM addressed on 07/22/2022.
[2022-07-24 11:09] VITALS: BP 138/67; PULSE 70; RESP 16; TEMP 36.2; O2SAT 96
[2022-07-24 11:32] LABS: Glucose, Whole Blood 204 mg/dL (60-115)
--- NOTE | 2022-07-24 11:49 | PM.PNNEP ---
Subjective Subjective Date of Service: 07/24/22 Interval history: Seen and evaluated this morning ;Feels better; Denied any new complaints Physical Exam Vital Signs: Vital Signs: Last Vital Signs Temp 97.1 F 07/24/22 11:09 Pulse 70 07/24/22 11:09 Resp 16 07/24/22 11:09 BP 138/67 07/24/22 11:09 Pulse Ox 96 07/24/22 11:09 O2 Del Method Room Air 07/24/22 11:09 BMI result Body Mass Index 30.4 Const: General: comfortable Orientation/consciousness: patient oriented x3 Eyes: EOM: EOMs intact bilaterally Neck: Neck: Yes supple Resp: Auscultation: diminished lung sounds Cardio: Rate: regular rate GI: Palpation (GI): Soft to palpation Skin: General skin exam: no rashes or lesions noted Neuro: General: patient oriented x3 Objective Data Labs 07/22/22 06:01 07/24/22 06:48 Labs: Laboratory Results - last 24 hr 07/23/22 07/23/22 07/24/22 16:48 20:01 06:48 Sodium 140 Potassium 4.2 Chloride 105 Carbon Dioxide 24 Anion Gap 15 BUN 30 H Creatinine 2.46 H Estim Creat Clear Calc 37.8 Estimated GFR 27 POC Glucose 99 147 H Random Glucose 70 Calcium 9.3 07/24/22 07/24/22 07:38 11:14 Sodium Potassium Chloride Carbon Dioxide Anion Gap BUN Creatinine Estim Creat Clear Calc Estimated GFR POC Glucose 79 204 H Random Glucose Calcium Procedures Date of Service Date of Service: 07/24/22 Assessment & Plan Assessment and plan (1) LEDA (acute kidney injury): Status: Acute Assessment and Plan: LEDA due to tubular injury Has CKD 3 at baseline Urine output good Serum creatinine improved BP better controlled Shall optimize BP medications with time Shall arrange close follow up with me Progress Note: Quality Stroke Does the patient have a stroke diagnosis?: No
== END 2022-07-24 13:16 | disposition home health service (06) | DRG 292 ==
LOC: HO.ED 23:26 → HO.EDOVER 07-22 00:54 → HO.IMC 07-22 02:10
PROVIDERS: Admitting Provider Internal Medicine; Emergency Provider Emergency Medicine; PCP Internal Medicine; Visit Provider Student in an Organized Health Care Education/Training Program
DX: I13.0 Hypertensive heart and chronic kidney disease with heart failure and stage 1 through stage 4 chronic kidney disease, or unspecified chronic kidney disease (principal); E87.1 Hypo-osmolality and hyponatremia; I50.32 Chronic diastolic (congestive) heart failure; N17.9 Acute kidney failure, unspecified; N18.4 Chronic kidney disease, stage 4 (severe); E11.22 Type 2 diabetes mellitus with diabetic chronic kidney disease; D63.1 Anemia in chronic kidney disease; K75.81 Nonalcoholic steatohepatitis (NASH); E87.5 Hyperkalemia; E11.65 Type 2 diabetes mellitus with hyperglycemia; F32.A Depression, unspecified; I95.2 Hypotension due to drugs; T46.5X5A Adverse effect of other antihypertensive drugs, initial encounter; E66.9 Obesity, unspecified; Z68.30 Body mass index [BMI] 30.0-30.9, adult; E86.0 Dehydration; E78.00 Pure hypercholesterolemia, unspecified; Z88.1 Allergy status to other antibiotic agents; Z88.8 Allergy status to other drugs, medicaments and biological substances; Z79.4 Long term (current) use of insulin; Z79.899 Other long term (current) drug therapy
CPT/HCPCS: 36415; 80048; 80053; 82947; 83036; 83735; 84100; 84443; 84484; 85025; 85027; 93005; 94640; 97162; 99285; J1643; J2405

== ENCOUNTER 2022-07-26 13:50 | Inpatient (IN) | payer OTHER, SELFPAY ==
[2022-07-26] VITALS (32 sets, daily range): BP systolic 80–164; BP diastolic 32–68; PULSE 50–105; RESP 15–24; TEMP 34.7–37; O2SAT 94–100; BMI 34.8
--- NOTE | ~2022-07-26 | XR_ITS ---
EXAMINATION: XR CHEST CLINICAL INFORMATION: Tube confirmation. COMPARISON: Chest 07/26/2022 TECHNIQUE: Frontal view of the chest was obtained. FINDINGS: The lungs are hypoexpanded. Patchy bilateral infiltrates slightly worse from 07/26/2022 at 2:27 PM. There is a new endotracheal tube tip is 1.4 cm above the steven. Heart size and pulmonary vascularity is normal. No gross bony abnormality seen. XR/XR chest 1V IMPRESSION: 1. New endotracheal tube tip is 1.4 cm above the steven. 2. Patchy bilateral infiltrates slightly worse from 07/26/2022 at 2:27 PM.
--- NOTE | ~2022-07-26 | XR_ITS ---
EXAMINATION: XR CHEST CLINICAL INFORMATION: OG tube placement COMPARISON: Chest x-ray 07/26/2022 TECHNIQUE: Frontal view of the chest was obtained. FINDINGS: The lungs are hypoexpanded with patchy opacity in both lung bases, some minimally improved. There is a new enteric tube with its tip below diaphragm in stomach. Tip of the endotracheal tube is 3.4 cm above the steven. Moderate spondylosis dorsal spine.. XR/XR chest 1V IMPRESSION: 1. New enteric tube tip is below diaphragm in stomach. The endotracheal tube is in good position. 2. Patchy opacity in both lung bases, some improvement from 07/26/2022.
--- NOTE | ~2022-07-26 | XR_ITS ---
EXAMINATION: XR CHEST CLINICAL INFORMATION: Right-sided IJ placement. COMPARISON: Multiple priors, most recent chest radiograph dated 07/26/2022. TECHNIQUE: Frontal view of the chest was obtained. FINDINGS: Interval placement of a dual-lumen right-sided central venous catheter with the tip in the region of the SVC. Endotracheal tube with the tip approximately 3.2 cm proximal to the steven. Enterogastric tube with its tip beneath the left hemidiaphragm and extending beyond the imaged field of view. Overlying pacer pads. No pleural effusion or pneumothorax. Stable cardiomediastinal silhouette. Patchy bilateral airspace opacities appear similar when compared to the prior chest radiograph. XR/XR chest 1V IMPRESSION: 1. Interval placement of a dual-lumen right-sided central venous catheter with the tip in the region of the SVC. 2. Endotracheal tube with its tip approximately 3.2 cm proximal to the steven. Enterogastric tube in appropriate position. 3. Patchy bilateral airspace opacities, similar when compared to the prior examination.
--- NOTE | ~2022-07-26 | FL_ITS ---
EXAMINATION: XR FLUOROSCOPY WITH IMAGES CLINICAL INFORMATION: Pacemaker placement COMPARISON: None available. TECHNIQUE: Fluoroscopy Supervised By: Eren. Fluoroscopy Time: 379.2 seconds. Cumulative Dose: 213.65 mGy. Images: 4. FINDINGS: Fluoroscopy performed during right-sided pacemaker placement. FL/FL guidance in OR IMPRESSION: Fluoroscopy performed during right-sided pacemaker placement. We see the operative report for additional information.
--- NOTE | ~2022-07-26 | XR_ITS ---
EXAMINATION: XR CHEST CLINICAL INFORMATION: Preoperative evaluation. COMPARISON: 07/26/2022 chest radiograph. TECHNIQUE: Frontal view of the chest was obtained. FINDINGS: No significant abnormality is noted involving the heart, lungs, mediastinum, bony thorax or soft tissues. XR/XR chest 1V IMPRESSION: No acute cardiopulmonary process.
--- NOTE | ~2022-07-26 | US_ITS ---
EXAMINATION: US RETROPERITONEAL LIMITED (RENAL ONLY) ULTRASOUND RENAL DOPPLER CLINICAL INFORMATION: Hypertension. COMPARISON: CT abdomen pelvis dated 05/16/2022 TECHNIQUE: Ultrasound along with color Doppler imaging and spectral analysis was performed of the kidneys. FINDINGS: RIGHT KIDNEY: 12.4 x 5.8 x 6.2 cm (SAG x AP x TRV). The kidney is normal in size, contour, and echogenicity. Renal cortical thickness is normal. No calculi or focal parenchymal lesions. No hydronephrosis. LEFT KIDNEY: 12.5 x 6.7 x 6.5 cm (SAG x AP x TRV). The kidney is normal in size, contour, and echogenicity. Renal cortical thickness is normal. No calculi or focal parenchymal lesions. No hydronephrosis. DOPPLER INTERROGATION: Aorta: 163 cm/sec Right Main Renal Artery: Proximal: Not seen Mid: 92 cm/sec Distal: 71 cm/sec Left Main Renal Artery: Proximal: Not seen Mid: not seen Distal: 92 cm/sec Renal-Aortic Ratio (RAR): Cannot be calculated due to elevated peak systolic velocity of the mid abdominal aorta. Resistive indices: Right: Upper pole : 0.6 7 Mid: 0.75 Lower pole : 0.76 Left: Upper pole: 0.75 Mid: 0.8 Lower pole : 0.66 Renal veins: Patent bilaterally US/US renal doppler IMPRESSION: Significant renal parenchymal abnormalities nor appreciable abnormal blood flow in the renal arteries. Portions of both main renal arteries were not well seen sonographically. No abnormally elevated peak systolic velocities are identified to indicate significant stenoses.
--- NOTE | ~2022-07-26 | US_ITS ---
EXAMINATION: US RETROPERITONEAL LIMITED (RENAL ONLY) ULTRASOUND RENAL DOPPLER CLINICAL INFORMATION: Hypertension. COMPARISON: CT abdomen pelvis dated 05/16/2022 TECHNIQUE: Ultrasound along with color Doppler imaging and spectral analysis was performed of the kidneys. FINDINGS: RIGHT KIDNEY: 12.4 x 5.8 x 6.2 cm (SAG x AP x TRV). The kidney is normal in size, contour, and echogenicity. Renal cortical thickness is normal. No calculi or focal parenchymal lesions. No hydronephrosis. LEFT KIDNEY: 12.5 x 6.7 x 6.5 cm (SAG x AP x TRV). The kidney is normal in size, contour, and echogenicity. Renal cortical thickness is normal. No calculi or focal parenchymal lesions. No hydronephrosis. DOPPLER INTERROGATION: Aorta: 163 cm/sec Right Main Renal Artery: Proximal: Not seen Mid: 92 cm/sec Distal: 71 cm/sec Left Main Renal Artery: Proximal: Not seen Mid: not seen Distal: 92 cm/sec Renal-Aortic Ratio (RAR): Cannot be calculated due to elevated peak systolic velocity of the mid abdominal aorta. Resistive indices: Right: Upper pole : 0.6 7 Mid: 0.75 Lower pole : 0.76 Left: Upper pole: 0.75 Mid: 0.8 Lower pole : 0.66 Renal veins: Patent bilaterally US/US renal BI IMPRESSION: Significant renal parenchymal abnormalities nor appreciable abnormal blood flow in the renal arteries. Portions of both main renal arteries were not well seen sonographically. No abnormally elevated peak systolic velocities are identified to indicate significant stenoses.
--- NOTE | ~2022-07-26 | XR_ITS ---
EXAMINATION: XR CHEST CLINICAL INFORMATION: Hypotension COMPARISON: 07/19/2022 TECHNIQUE: Frontal view of the chest was obtained. FINDINGS: Low lung volumes. There is felt to be increased reticular coarse change in the lungs which may be reticular nodular. Some of this may be due to low lung volumes. Recommend PA and lateral films when the patient is able. The cardiac silhouette is comparable to previous. The hilar regions are comparable. There is no effusion. XR/XR chest 1V IMPRESSION: Low lung volumes. Reticular coarse pattern in the lungs may well be due to poor expansion of the lung delcid. Reticular infiltrates would need to be considered. Element of pulmonary edema cannot be excluded. Recommend PA and lateral films when the patient is able
--- NOTE | ~2022-07-26 | US_ITS ---
EXAMINATION: US VENOUS WITH DOPPLER UPPER EXTREMITY, RIGHT CLINICAL INFORMATION: Swelling. Rule out DVT. COMPARISON: None available. TECHNIQUE: Ultrasound of the upper extremity is performed using compression sonography and color and pulse Doppler flow with assessment of augmentation of flow. There is also imaging and Doppler assessment of the jugular and subclavian veins. Spectral analysis with color-flow imaging is performed. FINDINGS: Respiratory variation, normal compression, and augmented flow are noted throughout the upper extremity including the axillary, brachial, cubital, and radial and ulnar veins. There is normal flow in the internal jugular and subclavian veins. There is no visible deep or superficial thrombophlebitis. The cephalic vein is not seen. If the patient's symptoms progress, a followup ultrasound in 5 -7 days might be of value to exclude proximal propagation from a nonvisualized distal arm vein. US/US venous duplex UE RT IMPRESSION: No DVT demonstrated in the right upper extremity.
--- NOTE | 2022-07-26 14:10 | ECG_ITS ---
Test Reason : HYPOTENSION Blood Pressure : / mmHG Vent. Rate : 054 BPM Atrial Rate : 000 BPM P-R Int : 000 ms QRS Dur : 086 ms QT Int : 426 ms P-R-T Axes : 000 018 054 degrees QTc Int : 403 ms Junctional rhythm Abnormal ECG When compared with ECG of 21-JUL-2022 20:27, Junctional rhythm has replaced Sinus rhythm Referred By: Isac Ramirez Electronically Signed By:Wicho Lawson
--- NOTE | 2022-07-26 14:15 | PC.NURSE ---
Patient arrived via EMS after feeling weak and being lowered to the ground outside of his house. Per EMS in the ambulance patient had a low pressure of 80/50. A BP was checked and noted to be 81/46, patient was alert and oriented during triage answering questions appropriately, Dr Ramirez brought into room to evaluate patient. Fluids and labwork ordered.
[2022-07-26] MEDS: 0.9 % Sodium Chloride 1,000 ML 999 ML IV (14:26)
[2022-07-26 14:33] LABS: MANUAL DIFF FLAG NO
[2022-07-26 14:36] LABS: Basophils Absolute Auto 0.1 X10*3/uL (0.0-0.2); Basophils Percent Auto 0.6 % (0-2); Eosinophils Absolute Auto 0.2 X10*3/uL (0.0-0.4); Eosinophils Percent Auto 1.2 % (0-4); Hematocrit 26.4 % (42.0-52.0); Hemoglobin 8.9 g/dl (14.0-18.0); Imm Gran Pct Auto 0.8 % (0.0-0.4); Lymphocytes Absolute Auto 1.7 X10*3/uL (1.2-4.9); Lymphocytes Percent Auto 13.5 % (20-40); Mean Corpuscular HGB Conc 33.7 g/dl (31.0-36.0); Mean Corpuscular Hemoglobin 29.4 pg (27.0-33.0); Mean Corpuscular Volume 87.1 fL (80.0-98.0); Mean Platelet Volume 9.7 fL (9.4-12.4); Monocytes Absolute Auto 1.2 X10*3/uL (0.1-1.2); Monocytes Percent Auto 9.5 % (2-11); Neutrophils Absolute Auto 9.2 x10*3/uL (2.0-8.3); Neutrophils Percent Auto 74.4 % (45-73); Platelet Count 218 X10*3/uL (160-400); Red Blood Count 3.03 X10*6/uL (4.60-5.80); White Blood Count 12.4 X10*3/uL (4.8-10.8)
--- NOTE | 2022-07-26 14:37 | ED_ITS ---
HPI - General Adult General Chief complaint: Dizziness Stated complaint: BLUR VISION,LOSS OF BALANCE,NO FALL PER EMS Time Seen by Provider: 07/26/22 14:10 Source: patient Mode of arrival: EMS Limitations: no limitations History of Present Illness HPI narrative: 56-year-old male with multiple medical problems including history of kidney injury, electrolyte abnormality, microvascular disease, anemia presents with b lurred vision. Patient had difficulty ambulating as well, feeling like he had to walk backwards. Denied any dizziness or significant lightheadedness. Denied any chest pain, palpitations, shortness of breath. Symptoms are new in onset. He has been taking his medications appropriately. He was recently discharged from hospital. He denies any fevers or chills. No urinary complaints, no diarrhea constipation. His diet has been appropriate. There are no clear relieving or exacerbating symptoms. He describes his symptoms as moderate to severe. Patient reports having had frequent hospitalizations. Related Data Home Medications Medication Instructions Recorded Confirmed venlafaxine 150 mg 150 mg PO DAILY 10/30/21 07/26/22 capsule,extended release 24 hr multivitamin with folic acid 400 1 tab PO DAILY 03/06/22 07/26/22 mcg tablet (Tab-A-George) pen needle, diabetic 32 gauge x #50 ea 03/06/22 06/02/2206/14 (Ultracare Pen Needle) bupropion HCl 150 mg 24 hr tablet, 150 mg PO DAILY 05/16/22 07/26/22 extended release insulin aspart U-100 100 unit/mL 14 unit subcut TIDAC 05/16/22 07/26/22 (3 mL) subcutaneous pen (Novolog FlexPen U-100 Insulin aspart) insulin glargine U-300 conc 300 70 unit subcut DAILY 05/16/22 07/26/22 unit/mL (3 mL) subcutaneous pen (Toujeo Max U-300 SoloStar) meclizine 25 mg tablet 25 mg PO Q6H PRN Dizziness 05/16/22 07/26/22 trazodone 150 mg tablet 150 mg PO BEDTIME 05/16/22 07/26/22 Previous Rx's Medication Instructions Recorded clonazepam 0.5 mg tablet 0.5 mg PO TID PRN anxiety #90 tabs 01/31/21 lancets 28 gauge (FreeStyle #150 ea 05/12/21 Lancets) miscellaneous medical supply #1 ea 05/25/21 (Blood Pressure Cuff) pen needle, diabetic 32 gauge x #400 ea 08/11/21 (BD Kacey 2nd Gen Pen Needle) cholecalciferol (vitamin D3) 50 50 mcg PO DAILY #30 caps 08/30/21 mcg (2,000 unit) capsule (D3-2000) omega-3 acid ethyl esters 1 gram 2 cap PO BID 30 days #120 caps 09/04/21 capsule flash glucose sensor (FreeStyle #1 ea 04/10/22 John 14 Day Sensor kit) famotidine 20 mg tablet 20 mg PO BID #180 tabs 05/01/22 metoclopramide HCl 5 mg tablet 5 mg PO QID #360 tabs 05/01/22 simethicone 180 mg capsule 180 mg PO TID #90 caps 05/01/22 linagliptin 5 mg tablet (Tradjenta) 5 mg PO DAILY 30 days #30 tabs 05/16/22 gabapentin 300 mg capsule 300 mg PO BID #60 caps 06/07/22 labetalol 300 mg tablet 300 mg PO BID #60 tabs 06/11/22 blood pressure monitor (Blood #1 ea 06/12/22 Pressure Kit) nifedipine 60 mg tablet,extended 120 mg PO DAILY 90 days #180 tabs 06/13/22 release 24 hr isosorbide mononitrate 30 mg 30 mg PO DAILY #30 tabs 06/29/22 tablet,extended release 24 hr hydralazine 100 mg tablet 100 mg PO TID 14 days #42 tabs 07/19/22 torsemide 20 mg tablet 20 mg PO Q2D #30 tabs 07/24/22 Allergies Allergy/AdvReac Type Severity Reaction Status Date / Time cephalexin [From KEFLEX] Allergy Mild ITCHY Verified 05/31/22 14:14 THROAT lisinopril [LISINOPRIL] Allergy Unknown SWELLING Verified 05/31/22 14:14 COUGH PMFSH Past Medical History Medical History Acute hyponatremia Anxiety Chronic hyperglycemia CKD (chronic kidney disease) CKD (chronic kidney disease) CKD (chronic kidney disease) stage 3, GFR 30-59 ml/min CKD (chronic kidney disease) stage 4, GFR 15-29 ml/min Depression Diabetes Diabetes mellitus with coincident hypertension Diabetes type 2, uncontrolled Diabetic nephropathy associated with type 2 diabetes mellitus Diabetic neuropathy associated with type 2 diabetes mellitus Dyslipidemia Essential hypertension GERD (gastroesophageal reflux disease) Hepatitis High cholesterol Hypercalcemia Hyperlipidemia 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 Social History Social History Household Members: Family Household Members Other:: SISTER Housing: Apartment Do you presently have visiting nurse or other home services: Yes Alcohol intake: never Patient Tobacco Use Status: Never used Tobacco e-Cigarette/Vaping Use: Never Used Second Hand Smoke Exposure: Yes (HISTORY OF SECOND HAND SMOKE EXPOSURE) Advance Directives: Yes Advance Directives on File: Yes Advance Directives Date on File: 05/05/20 service: No Current occupational status: disabled Current occupation: right handed Cognitive needs: No Hearing needs: No Vision needs: No Physical Exam ED Vital Signs: Vital Signs - 24 hr 07/26/22 14:04 07/26/22 14:54 Temperature 97.9 F Pulse Rate 56 55 Respiratory Rate 15 16 Blood Pressure 80/32 L 89/49 L Pulse Oximetry 95 Oxygen Delivery Method Room Air BMI result Body Mass Index 33.9 GEN: Well developed, no acute distress, alert, oriented HEENT: Normocephalic, atraumatic, normal external ears, nose appears normal, no oropharyngeal edema or exudates Eyes: Normal to appearance Neck: Supple, no lymphadenopathy Respiratory: Talks in complete sentences, no respiratory distress, clear to auscultation bilaterally Cardiovascular: Regular rate and rhythm, no murmurs rubs or gallops Abdomen: Soft, nontender, nondistended, no guarding, no rebound Back: No CVA tenderness Extremities: No clubbing cyanosis or edema Neurologic: No focal neurologic deficits, cranial nerves 2-12 intact, strength is 5/5 bilaterally Skin: No rash Course Course Course Narrative: 56-year-old male with history of anemia, microvascular disease, chronic kidney disease, electrolyte abnormality, heart failure, diabetes, hypertension presents with gait instability, blurred vision. Upon arrival, patient was markedly hypotensive. He was otherwise asymptomatic. His examination is benign. He is afebrile. Etiology is not entirely clear at this time. Patient will receive an IV fluid bolus immediately. IV access has been obtained. Will obtain an EKG to rule out cardiac dysrhythmia or ischemia. Will check urinalysis to rule out urinary tract infection. Will check CBC to make sure he is not further anemic than previously. Reevaluation(s) Reevaluation #1: EKG with junctional rhythm, discussed with Dr. Lawson and Dr. Hoover. Awaiting further lab results. Patient with IVF bolus. Will check for acute electrolyte abnormality. Not defintely requiring pacemaker at this time. Dr. Hoover requesting a total of 3 liters IVF. Reevaluation #2: patient with 2 IV, 2 Liters running but BP went down. Glucose in 60s given food. Time: 15:23 Reevaluation #3: potassium is slightly elevated will give calcium gluconate. Time: 15:26 Additional Reevaluation(s): Remains hypotensive after 2 L IVF. Calcium getting read to be admimnistered 15:35. Patient becoming more somnolent and pressure remains hypotensive. On 3rd liter of IVF. Glucose 88. HR in 40s. Pacer pads on. Dr. Hoover aware. 1545 Patient accepted to ICU 15:55 Medications Administered Generic Name Dose Route Start Last Admin Trade Name Freq PRN Reason Stop Dose Admin Sodium Chloride 2,000 mls @ 999 mls/hr 07/26/22 15:15 07/26/22 15:20 Ns IV 07/26/22 17:15 999 mls/hr .Q2H1M RADHA Administration Calcium Gluconate 1 gm in 50 mls @ 50 mls/hr 07/26/22 15:26 07/26/22 15:37 Calcium Gluconate IV 07/26/22 16:25 50 mls/hr ONCE ONE Administration Discontinued Medications Generic Name Dose Route Start Last Admin Trade Name Freq PRN Reason Stop Dose Admin Sodium Chloride 1,000 mls @ 999 mls/hr 07/26/22 14:15 07/26/22 15:20 Ns IV 04/27/23 15:15 Infused .Q1H1M RADHA Infusion Medical Decision Making Medical Decision Making MDM Narrative: Patient presents with blurred vision, gait instability in the scope of having cu rrent hypotension with a systolic blood pressure in the 80s. He is otherwise asymptomatic and his examination is benign. A broad differential diagnosis currently being considered investigated. Patient will likely require hospitalization. Differential Diagnosis Differential Diagnoses: The differential diagnosis associated with the pres entation includes (Hypertension, sepsis, severe sepsis, septic shock, anemia, electrolyte abnormality, kidney dysfunction, hypovolemia) Hypotension, junctional rhythm, hyperkalemia Admission/Observation Consideration of admission/observation: Escalation of care including admission/observation considered Lab Data [facility] Lab Attestation statement: I reviewed the patient's lab results. 07/26/22 14:28 07/26/22 14:28 Labs: Lab Results 07/26/22 07/26/22 07/26/22 Range/Units 14:28 14:28 14:28 WBC 12.4 H (4.8-10.8) X10*3/uL RBC 3.03 L (4.60-5.80) X10*6/uL Hgb 8.9 L (14.0-18.0) g/dl Hct 26.4 L (42.0-52.0) % MCV 87.1 (80.0-98.0) fL MCH 29.4 (27.0-33.0) pg MCHC 33.7 (31.0-36.0) g/dl RDW 13.0 (11.0-16.0) % Plt Count 218 (160-400) X10*3/uL MPV 9.7 (9.4-12.4) fL Immature Gran % (Auto) 0.8 H (0.0-0.4) % Neut % (Auto) 74.4 H (45-73) % Lymph % (Auto) 13.5 L (20-40) % Rutherford % (Auto) 9.5 (2-11) % Eos % (Auto) 1.2 (0-4) % Baso % (Auto) 0.6 (0-2) % Lymph # (Auto) 1.7 (1.2-4.9) X10*3/uL [place]ford # (Auto) 1.2 (0.1-1.2) X10*3/uL Eos # (Auto) 0.2 (0.0-0.4) X10*3/uL Baso # (Auto) 0.1 (0.0-0.2) X10*3/uL Abs Immat Gran (auto) 0.10 H (0.00-0.03) X10*3/uL Absolute Neuts (auto) 9.2 H (2.0-8.3) x10*3/uL Absolute Nucleated RBC 0.000 (0.0-0.012) X10*3/uL Nucleated RBC % (auto) 0.0 (0.0-0.2) /100WBC Sodium 131 L (135-145) mmol/L Potassium 5.6 H D (3.3-5.1) mmol/L Chloride 98 (96-108) mmol/L Carbon Dioxide 19 L (22-29) mmol/L Anion Gap 20 (12-20) BUN 44 H (9-16) mg/dL Creatinine 3.51 H (0.5-1.4) mg/dL Estim Creat Clear Calc 27.9 Estimated GFR 18 Random Glucose 76 (60-115) mg/dL Lactic Acid 3.7 H* (0.5-2.0) mmol/L Calcium 9.1 (8.4-10.2) mg/dL Total Bilirubin 0.5 (0.0-1.0) mg/dL AST 27 (5-37) U/L ALT 39 (0-40) U/L Alkaline Phosphatase 177 H (39-117) U/L Troponin I High Sens (<3.5-35.0) ng/L Total Protein 6.9 (6.5-8.0) g/dL Albumin 3.8 (3.5-5.0) g/dL TSH 1.62 (0.32-4.0) uIU/mL 07/26/22 Range/Units 14:28 WBC (4.8-10.8) X10*3/uL RBC (4.60-5.80) X10*6/uL Hgb (14.0-18.0) g/dl Hct (42.0-52.0) % MCV (80.0-98.0) fL MCH (27.0-33.0) pg MCHC (31.0-36.0) g/dl RDW (11.0-16.0) % Plt Count (160-400) X10*3/uL MPV (9.4-12.4) fL Immature Gran % (Auto) (0.0-0.4) % Neut % (Auto) (45-73) % Lymph % (Auto) (20-40) % Rutherford % (Auto) (2-11) % Eos % (Auto) (0-4) % Baso % (Auto) (0-2) % Lymph # (Auto) (1.2-4.9) X10*3/uL [place]ford # (Auto) (0.1-1.2) X10*3/uL Eos # (Auto) (0.0-0.4) X10*3/uL Baso # (Auto) (0.0-0.2) X10*3/uL Abs Immat Gran (auto) (0.00-0.03) X10*3/uL Absolute Neuts (auto) (2.0-8.3) x10*3/uL Absolute Nucleated RBC (0.0-0.012) X10*3/uL Nucleated RBC % (auto) (0.0-0.2) /100WBC Sodium (135-145) mmol/L Potassium (3.3-5.1) mmol/L Chloride (96-108) mmol/L Carbon Dioxide (22-29) mmol/L Anion Gap (12-20) BUN (9-16) mg/dL Creatinine (0.5-1.4) mg/dL Estim Creat Clear Calc Estimated GFR Random Glucose (60-115) mg/dL Lactic Acid (0.5-2.0) mmol/L Calcium (8.4-10.2) mg/dL Total Bilirubin (0.0-1.0) mg/dL AST (5-37) U/L ALT (0-40) U/L Alkaline Phosphatase (39-117) U/L Troponin I High Sens 6.5 (<3.5-35.0) ng/L Total Protein (6.5-8.0) g/dL Albumin (3.5-5.0) g/dL TSH (0.32-4.0) uIU/mL Independent Interpretation I performed an independent interpretation of an: EKG (Unknown rhythm, possible junctional heart rate 54, otherwise normal intervals, no acute ST elevations or depressions) and Plain X-Ray (Increased interstitial markings. This appears somewhat chronic in nature.) External Record Review External record reviewed: Inpatient record Tests considered The following testing was considered but not selected: CT scan chest abdomen and pelvis Prescription Management I considered prescription management with: Other (IV fluid bolus) Chronic Conditions Patient?s care impacted by: Diabetes and Hypertension Critical Care Time Critical Care Time Critical Care Time: Yes Total Critical Care Time: 70 Attestation: Approximately 70 minutes of CC time provided bedside, reevaluation, documentation, consultation with specialists - ICU/Cardiology, managing potentially life threatening condition of hypotension and junctional rhythm. Discharge Plan Discharge Clinical Impression: Acute hypotension, Junctional rhythm, Acidosis, lactic, Acute hyperkalemia Patient Disposition: Admitted As Inpatient
[2022-07-26 14:59] LABS: Lactic Acid 3.7 mmol/L (0.5-2.0)
[2022-07-26 15:03] LABS: Alanine Aminotransferase 39 U/L (0-40); Albumin Level 3.8 g/dL (3.5-5.0); Alkaline Phosphatase 177 U/L (39-117); Anion Gap 20 (12-20); Aspartate Amino Transferase 27 U/L (5-37); Bilirubin Total 0.5 mg/dL (0.0-1.0); Blood Urea Nitrogen 44 mg/dL (9-16); Calcium 9.1 mg/dL (8.4-10.2); Carbon Dioxide 19 mmol/L (22-29); Chloride 98 mmol/L (96-108); Creatinine Clr Calc Pharmacy 27.9; Estimated Glomerular Filt Rate 18; Glucose Random 76 mg/dL (60-115); Potassium 5.6 mmol/L (3.3-5.1); Sodium 131 mmol/L (135-145); Total Protein 6.9 g/dL (6.5-8.0)
--- NOTE | 2022-07-26 15:03 | PHA.MEDREC ---
Pharmacy Consult ? Medication Reconciliation Pharmacy has completed the medication reconciliation. Patient had a hand written list with him
[2022-07-26 15:16] LABS: Troponin-I High Sensitivity 6.5 ng/L (<3.5-35.0)
[2022-07-26] MEDS: 0.9 % Sodium Chloride 2,000 ML 999 ML IV (15:20)
[2022-07-26 15:27] LABS: TSH reflex Free T4 1.62 uIU/mL (0.32-4.0)
[2022-07-26] MEDS: Calcium Gluconate/NaCl,Iso-Osm 1 GM/50 ML PLAST..BAG IV (15:37)
--- NOTE | 2022-07-26 16:12 | P.HPCC_ITS ---
History of Present Illness Date of Service: 07/26/22 Chief Complaint: Malaise and dizziness 56-year-old gentleman with underlying obesity, hypertension, diabetes mellitus, CKD stage 3-4, depression/conversion disorder being admitted for symptomatic bradycardia and acute on chronic kidney failure with hyperkalemia and metabolic acidosis. patient has recently been discharged from [facility] after being treated for pneumonia and acute kidney injury with increase in his antihypertensive regimen. He has started on IV fluids with no improvement in urine output or blood pressure in emergency room and thereafter admitted to intensive care unit for further workup and management. Review of Systems Constitutional: Constitutional: Denies daytime sleepiness, Denies excessive sweating, Reports fatigue, Denies fever(s), Denies lethargy, Reports malaise, Denies night sweats, Denies snoring and Denies weight loss Eyes: Eyes: Reports blurry vision ( Now resolved) and Denies itchy eyes ENT: Denies nasal congestion, Denies post nasal drip, Denies sinus pain, Denies sinus pressure and Denies other ( Thrush) Cardiovascular: Cardiovascular: Denies chest pain, Denies pedal edema, Denies dyspnea, Denies orthopnea and Denies paroxysmal nocturnal dyspnea Respiratory: Respiratory: Denies cough, Denies hemoptysis, Denies excessive phlegm production, Denies dyspnea, Denies snoring and Denies wheezing Gastrointestinal: Gastrointestinal: Denies abdominal pain and Denies heartburn Musculoskeletal: Musculoskeletal: Denies myalgias, Denies arthralgias and Denies joint swelling Integumentary/Breasts: Skin/Breast: Denies rash Neurologic: Denies memory loss and Denies seizure-like activity Psychiatric: Psychiatric: Denies abnormal sleep pattern, Denies anxiety and Denies memory loss Endocrine: Endocrine: Denies excessive sweating, Reports fatigue and Denies heat intolerance Hematologic/Lymphatic: Hematologic/Lymphatic: Denies easy bruising Allergic/Immunologic: Allergic/Immunologic: Denies itchy eyes, Denies seasonal rhinorrhea and Denies wheezing PMFSH Past Medical History Medical History Acute hyponatremia Anxiety Chronic hyperglycemia CKD (chronic kidney disease) CKD (chronic kidney disease) CKD (chronic kidney disease) stage 3, GFR 30-59 ml/min CKD (chronic kidney disease) stage 4, GFR 15-29 ml/min Depression Diabetes Diabetes mellitus with coincident hypertension Diabetes type 2, uncontrolled Diabetic nephropathy associated with type 2 diabetes mellitus Diabetic neuropathy associated with type 2 diabetes mellitus Dyslipidemia Essential hypertension GERD (gastroesophageal reflux disease) Hepatitis High cholesterol Hypercalcemia Hyperlipidemia Hypertension longterm (current) use of insulin Metabolic acidosis Neuropathy New onset of congestive heart failure Obesity Obesity (BMI 30-39.9) Severe depression Sleep apnea Type 2 diabetes mellitus with obesity Vitamin D deficiency Family History Family History Father Diabetes Mother No problems noted. Surgical History Surgical History H/O colonoscopy History of esophagogastroduodenoscopy (EGD) Hx of arthroscopy of knee Hx of arthroscopy of right knee Social History Social History Household Members: Family Household Members Other:: SISTER Housing: Apartment Do you presently have visiting nurse or other home services: Yes Alcohol intake: never Patient Tobacco Use Status: Never used Tobacco e-Cigarette/Vaping Use: Never Used Second Hand Smoke Exposure: Yes (HISTORY OF SECOND HAND SMOKE EXPOSURE) Advance Directives: Yes Advance Directives on File: Yes Advance Directives Date on File: 05/05/20 service: No Current occupational status: disabled Current occupation: right handed Cognitive needs: No Hearing needs: No Vision needs: No Meds Allergies Allergy/AdvReac Type Severity Reaction Status Date / Time cephalexin [From KEFLEX] Allergy Mild ITCHY Verified 05/31/22 14:14 THROAT lisinopril [LISINOPRIL] Allergy Unknown SWELLING Verified 05/31/22 14:14 COUGH Active Medications: Current Medications Heparin Sodium (Porcine) (Heparin Sodium,Porcine 5,000 Unit/Ml Vial) 5,000 unit SUBCUT Q8H RADHA Sodium Chloride (Ns) 2,000 mls @ 999 mls/hr IV .Q2H1M RADHA Stop: 07/26/22 17:15 Last Admin: 07/26/22 15:20 Dose: 999 mls/hr Calcium Gluconate (Calcium Gluconate) 1 gm in 50 mls @ 50 mls/hr IV ONCE ONE Stop: 07/26/22 16:25 Last Admin: 07/26/22 15:37 Dose: 50 mls/hr Insulin Human Lispro (Insulin Lispro 100 Unit/Ml 3 Ml Vial) 0 unit SUBCUT Q6H RADHA; Protocol Pharmacy Consult (Consult Rx Perform Med Rec) 1 each MISCELLANE ONCE PRN PRN Reason: Consult order Home Medications Medication Instructions Recorded Confirmed Last Taken Type venlafaxine 150 mg 150 mg PO DAILY 10/30/21 07/26/22 07/21/22 09:00 History capsule,extended release 24 hr multivitamin with folic acid 400 1 tab PO DAILY 03/06/22 07/26/22 07/21/22 09:00 History mcg tablet (Tab-A-George) pen needle, diabetic 32 gauge x #50 ea 03/06/22 06/02/22 Unknown History 06/14 (Ultracare Pen Needle) bupropion HCl 150 mg 24 hr tablet, 150 mg PO DAILY 05/16/22 07/26/22 07/21/22 09:00 History extended release insulin aspart U-100 100 unit/mL 14 unit subcut TIDAC 05/16/22 07/26/22 07/21/22 18:00 History (3 mL) subcutaneous pen (Novolog FlexPen U-100 Insulin aspart) insulin glargine U-300 conc 300 70 unit subcut DAILY 05/16/22 07/26/22 07/21/22 09:00 History unit/mL (3 mL) subcutaneous pen (Toujeo Max U-300 SoloStar) meclizine 25 mg tablet 25 mg PO Q6H PRN Dizziness 05/16/22 07/26/22 06/18/22 History trazodone 150 mg tablet 150 mg PO BEDTIME 05/16/22 07/26/22 07/20/22 History Physical Exam Vital Signs: Vital Signs: Last Vital Signs Temp 97.9 F 07/26/22 14:04 Pulse 50 07/26/22 15:38 Resp 16 07/26/22 15:38 BP 81/37 L 07/26/22 15:38 Pulse Ox 94 07/26/22 15:38 O2 Del Method Room Air 07/26/22 15:38 BMI result Body Mass Index 33.9 Const: General: no acute distress and lethargic ( arousable and answers appropriately) Nutritional Appearance: obese Orientation/consciousness: lethargic ( arousable and answers appropriately) and Other orientation findings ( oriented) HEENT: Head: Yes atraumatic Mouth: no other ( thrush) Throat: No postnasal drainage Eyes: General: appearance normal, both eyes and all related structures Sclerae: sclerae normal EOM: EOMs intact bilaterally Neck: Neck: Yes supple Lymphatic: no lymphadenopathy noted Resp: Effort & Inspection: normal respiratory effort and no use of accessory muscles Auscultation: clear to auscultation bilaterally Cardio: Rate: bradycardic Rhythm: regular rhythm Heart sounds: no gallops, no murmurs and no rubs GI: Palpation (GI): Soft to palpation and Other GI palpation findings present ( nontender) Skin: General skin exam: other ( warm) Rashes: no rashes Extrem: General: No clubbing, No cyanosis and Yes edema ( 1+ bilateral) Results Labs 07/26/22 14:28 07/26/22 14:28 Labs: Laboratory Results - last 24 hr 07/26/22 07/26/22 07/26/22 14:28 14:28 14:28 MCV 87.1 MCH 29.4 MCHC 33.7 RDW 13.0 Plt Count 218 MPV 9.7 Immature Gran % (Auto) 0.8 H Neut % (Auto) 74.4 H Lymph % (Auto) 13.5 L [place] % (Auto) 9.5 Eos % (Auto) 1.2 Baso % (Auto) 0.6 Lymph # (Auto) 1.7 [place] # (Auto) 1.2 Eos # (Auto) 0.2 Baso # (Auto) 0.1 Abs Immat Gran (auto) 0.10 H Absolute Neuts (auto) 9.2 H Absolute Nucleated RBC 0.000 Nucleated RBC % (auto) 0.0 Anion Gap 20 Estim Creat Clear Calc 27.9 Estimated GFR 18 Random Glucose 76 Lactic Acid 3.7 H* Calcium 9.1 Total Bilirubin 0.5 AST 27 ALT 39 Alkaline Phosphatase 177 H Troponin I High Sens Total Protein 6.9 Albumin 3.8 TSH 1.62 07/26/22 14:28 MCV MCH MCHC RDW Plt Count MPV Immature Gran % (Auto) Neut % (Auto) Lymph % (Auto) [place] % (Auto) Eos % (Auto) Baso % (Auto) Lymph # (Auto) [place] # (Auto) Eos # (Auto) Baso # (Auto) Abs Immat Gran (auto) Absolute Neuts (auto) Absolute Nucleated RBC Nucleated RBC % (auto) Anion Gap Estim Creat Clear Calc Estimated GFR Random Glucose Lactic Acid Calcium Total Bilirubin AST ALT Alkaline Phosphatase Troponin I High Sens 6.5 Total Protein Albumin TSH Imaging Radiologist's Impressions: Impressions Chest X-Ray 07/26/22 14:30 IMPRESSION: Low lung volumes. Reticular coarse pattern in the lungs may well be due to poor expansion of the lung delcid. Reticular infiltrates would need to be considered. Element of pulmonary edema cannot be excluded. Recommend PA and lateral films when the patient is able Assessment and Plan (1) Symptomatic bradycardia: Status: Acute (2) LEDA (acute kidney injury): Status: Acute (3) CKD (chronic kidney disease): Status: Acute (4) (HFpEF) heart failure with preserved ejection fraction: Status: Acute (5) Obesity: Status: Acute (6) Type 2 diabetes mellitus with obesity: Status: Acute (7) GARCIA (nonalcoholic steatohepatitis): Status: Acute Plan Assessment: 56-year-old gentleman with underlying CKD stage 3 to 4, obesity, diabetes mellitus, diastolic heart failure admitted with symptomatic bradycardia and acute on chronic kidney injury after recent increasing his blood pressure regimen Plan: Neuro: No acute issues. Cardiac: symptomatic bradycardia. Cardiology service care appreciated. Likely secondary to increased effect of antihypertensive/rate control medications. Pulmonary: No acute issues. Renal: Acute on chronic kidney injury with hyperkalemia and metabolic lactic acidosis. Poor response to initial IV fluid bolus. Continue to monitor renal indices and urine output. No peaked T-waves on EKG. Endo: No acute issues. underlying diabetes mellitus. Continue on insulin protocol. GI: No acute issues. ID: Empirically covered with broad-spectrum antibiotics. Cultures are pending. No evidence of sepsis, elevated lactate, end organ dysfunction, and hypotension likely secondary to symptomatic bradycardia. Heme/Onc: No acute issues. Psych: No acute issues. Miscellaneous: No acute issues. Prophylaxis: Heparin Diet: nothing by mouth Critical care time spent: 60 minutes Time Spent With Patient Time: Total time managing care of this patient today ____ minutes.
[2022-07-26] MEDS: DOPamine HCL/D5W 400 MG/250 ML PLAST..BAG 39.08 MG IVCONT (16:20)
[2022-07-26 16:31] LABS: Reflex Lactate? Lactic Acid Added
[2022-07-26 16:32] LABS: Glucose, Whole Blood 88 mg/dL (60-115)
[2022-07-26 16:32] LABS: Glucose, Whole Blood 107 mg/dL (60-115)
[2022-07-26 16:32] LABS: Glucose, Whole Blood 62 mg/dL (60-115)
--- NOTE | 2022-07-26 16:40 | PC.NURSE ---
Patient more lethargic than previously noted, Dr Ramirez made aware and no new orders at this time.
[2022-07-26] MEDS: Etomidate 20 MG/10 ML VIAL IVPUSH (16:43)
[2022-07-26] MEDS: Rocuronium Bromide 50 MG/5 ML VIAL 100 MG IVPUSH (16:44)
[2022-07-26] MEDS: propofoL 1,000 MG/100 ML VIAL 18.76 MG IVCONT (16:54)
--- NOTE | 2022-07-26 16:55 | PM.CNCAR ---
History of Present Illness History of Present Illness Date of Service: 07/26/22 Requesting physician: Isac Ramirez Chief complaint: Symptomatic bradycardia Narrative: 56-year-old gentleman who is presenting for dizziness and visual changes. Patient left the hospital. He has background of diastolic heart failure and chronic kidney disease. It appears he was going for an appointment and started feelings dizzy. He was brought into the emergency department. His initial blood pressure was low and his heart rate was 40s to 50s in junctional rhythm. It was felt that the bradycardia is a cause for his presentation. He was given IV fluid boluses without any change in his blood pressure. At the time I saw him his heart rate was 48 with junctional rhythm and his blood pressure was 81/30. He was mentating but was slow to respond. He appeared fairly sick. He was denying any chest discomfort shortness of breath. He was started on dopamine 5 microgram/minute which was titrated to 10 microgram/minute. While I was at bedside the patient became unresponsive. He was not protecting his airway and had a pulse. At this stage we call the code and intubated the patient. He was given vasopressor bolus and was on dopamine drip. After intubation his heart rate went up initially to 70s and then 100s. His last blood pressure was 109/70. His blood workup has shown worsening kidney function and lactic acidosis with lactate of 3.7. He had an anion gap of 20 on admission labs a potassium 5.6 with mild hemolysis. [facility] Past Medical History Medical History Acute hyponatremia Anxiety Chronic hyperglycemia CKD (chronic kidney disease) CKD (chronic kidney disease) CKD (chronic kidney disease) stage 3, GFR 30-59 ml/min CKD (chronic kidney disease) stage 4, GFR 15-29 ml/min Depression Diabetes Diabetes mellitus with coincident hypertension Diabetes type 2, uncontrolled Diabetic nephropathy associated with type 2 diabetes mellitus Diabetic neuropathy associated with type 2 diabetes mellitus Dyslipidemia Essential hypertension GERD (gastroesophageal reflux disease) Hepatitis High cholesterol Hypercalcemia Hyperlipidemia Hypertension 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 Surgical History Surgical History H/O colonoscopy History of esophagogastroduodenoscopy (EGD) Hx of arthroscopy of knee Hx of arthroscopy of right knee Social History Social History Household Members: Family Household Members Other:: SISTER Housing: Apartment Do you presently have visiting nurse or other home services: Yes Alcohol intake: never Patient Tobacco Use Status: Never used Tobacco Smoked in Last 30 Days: No e-Cigarette/Vaping Use: Never Used Second Hand Smoke Exposure: Yes (HISTORY OF SECOND HAND SMOKE EXPOSURE) Use of substances other than those prescribed or required for medical reasons: No Advance Directives: Yes Advance Directives on File: Yes Advance Directives Date on File: 05/05/20 service: No Current occupational status: disabled Current occupation: right handed Cognitive needs: No Hearing needs: No Vision needs: No Meds Allergies Allergy/AdvReac Type Severity Reaction Status Date / Time cephalexin [From KEFLEX] Allergy Mild ITCHY Verified 05/31/22 14:14 THROAT lisinopril [LISINOPRIL] Allergy Unknown SWELLING Verified 05/31/22 14:14 COUGH Active Medications: Current Medications Heparin Sodium (Porcine) (Heparin Sodium,Porcine 5,000 Unit/Ml Vial) 5,000 unit SUBCUT Q8H RADHA Sodium Chloride (Ns) 2,000 mls @ 999 mls/hr IV .Q2H1M RADHA Stop: 07/26/22 17:15 Last Admin: 07/26/22 15:20 Dose: 999 mls/hr Insulin Human Lispro (Insulin Lispro 100 Unit/Ml 3 Ml Vial) 0 unit SUBCUT Q6H RADHA; Protocol Pharmacy Consult (Consult Rx Perform Med Rec) 1 each MISCELLANE ONCE PRN PRN Reason: Consult order Home Medications Medication Instructions Recorded Confirmed Last Taken Type venlafaxine 150 mg 150 mg PO DAILY 10/30/21 07/26/22 07/21/22 09:00 History capsule,extended release 24 hr multivitamin with folic acid 400 1 tab PO DAILY 03/06/22 07/26/22 07/21/22 09:00 History mcg tablet (Tab-A-George) pen needle, diabetic 32 gauge x #50 ea 03/06/22 06/02/22 Unknown History 06/14 (Ultracare Pen Needle) bupropion HCl 150 mg 24 hr tablet, 150 mg PO DAILY 05/16/22 07/26/22 07/21/22 09:00 History extended release insulin aspart U-100 100 unit/mL 14 unit subcut TIDAC 05/16/22 07/26/22 07/21/22 18:00 History (3 mL) subcutaneous pen (Novolog FlexPen U-100 Insulin aspart) insulin glargine U-300 conc 300 70 unit subcut DAILY 05/16/22 07/26/22 07/21/22 09:00 History unit/mL (3 mL) subcutaneous pen (Toujeo Max U-300 SoloStar) meclizine 25 mg tablet 25 mg PO Q6H PRN Dizziness 05/16/22 07/26/22 06/18/22 History trazodone 150 mg tablet 150 mg PO BEDTIME 05/16/22 07/26/22 07/20/22 History Physical Exam Vital Signs: Vital Signs: Last Vital Signs Temp 97.9 F 07/26/22 14:04 Pulse 50 07/26/22 15:38 Resp 16 07/26/22 15:38 BP 81/37 L 07/26/22 15:38 Pulse Ox 94 07/26/22 15:38 O2 Del Method Room Air 07/26/22 15:38 BMI result Body Mass Index 33.9 Examination before intubation GENERAL APPEARANCE: in no acute distress, slow to respond but answering questions. NECK: no carotid bruit, no obvious jugular venous distention. SKIN: no suspicious lesions, warm and dry. HEART: no murmurs, regular rate and rhythm. Bradycardic LUNGS: clear to auscultation bilaterally. ABDOMEN: soft, nontender. NEUROLOGIC: No gross deficits, AAO X 3 I performed a bedside echocardiogram before intubation and his LV function was preserved. No obvious pericardial effusion was noted. Objective Labs and Meds 07/26/22 14:28 07/26/22 14:28 Lab results: Laboratory Results - last 24 hr 07/26/22 07/26/22 07/26/22 14:28 14:28 14:28 WBC 12.4 H RBC 3.03 L Hgb 8.9 L Hct 26.4 L MCV 87.1 MCH 29.4 MCHC 33.7 RDW 13.0 Plt Count 218 MPV 9.7 Immature Gran % (Auto) 0.8 H Neut % (Auto) 74.4 H Lymph % (Auto) 13.5 L [place] % (Auto) 9.5 Eos % (Auto) 1.2 Baso % (Auto) 0.6 Lymph # (Auto) 1.7 [place] # (Auto) 1.2 Eos # (Auto) 0.2 Baso # (Auto) 0.1 Abs Immat Gran (auto) 0.10 H Absolute Neuts (auto) 9.2 H Absolute Nucleated RBC 0.000 Nucleated RBC % (auto) 0.0 Sodium 131 L Potassium 5.6 H D Chloride 98 Carbon Dioxide 19 L Anion Gap 20 BUN 44 H Creatinine 3.51 H Estim Creat Clear Calc 27.9 Estimated GFR 18 POC Glucose Random Glucose 76 Lactic Acid 3.7 H* Calcium 9.1 Total Bilirubin 0.5 AST 27 ALT 39 Alkaline Phosphatase 177 H Troponin I High Sens Total Protein 6.9 Albumin 3.8 TSH 1.62 07/26/22 07/26/22 07/26/22 14:28 15:06 15:41 WBC RBC Hgb Hct MCV MCH MCHC RDW Plt Count MPV Immature Gran % (Auto) Neut % (Auto) Lymph % (Auto) [place] % (Auto) Eos % (Auto) Baso % (Auto) Lymph # (Auto) [place] # (Auto) Eos # (Auto) Baso # (Auto) Abs Immat Gran (auto) Absolute Neuts (auto) Absolute Nucleated RBC Nucleated RBC % (auto) Sodium Potassium Chloride Carbon Dioxide Anion Gap BUN Creatinine Estim Creat Clear Calc Estimated GFR POC Glucose 62 88 Random Glucose Lactic Acid Calcium Total Bilirubin AST ALT Alkaline Phosphatase Troponin I High Sens 6.5 Total Protein Albumin TSH 07/26/22 16:28 WBC RBC Hgb Hct MCV MCH MCHC RDW Plt Count MPV Immature Gran % (Auto) Neut % (Auto) Lymph % (Auto) [place] % (Auto) Eos % (Auto) Baso % (Auto) Lymph # (Auto) [place] # (Auto) Eos # (Auto) Baso # (Auto) Abs Immat Gran (auto) Absolute Neuts (auto) Absolute Nucleated RBC Nucleated RBC % (auto) Sodium Potassium Chloride Carbon Dioxide Anion Gap BUN Creatinine Estim Creat Clear Calc Estimated GFR POC Glucose 107 Random Glucose Lactic Acid Calcium Total Bilirubin AST ALT Alkaline Phosphatase Troponin I High Sens Total Protein Albumin TSH Imaging Radiologist's impression: Impressions Chest X-Ray 07/26/22 14:30 IMPRESSION: Low lung volumes. Reticular coarse pattern in the lungs may well be due to poor expansion of the lung delcid. Reticular infiltrates would need to be considered. Element of pulmonary edema cannot be excluded. Recommend PA and lateral films when the patient is able Assessment and Plan (1) Acute hypotension: Status: Acute (2) Junctional rhythm: Status: Acute Plan [age] year gentleman who recently left the hospital. He had acute kidney injury and electrolyte abnormalities including hyponatremia and hyperkalemia. He presented today with dizziness and blurred vision and was noted to be hypotensive and bradycardic with junctional rhythm. We have asked to assess him for the bradycardia. At the time the patient was seen he was bradycardic and had low blood pressure in 80s. He was mentating but soon afterwards he lost consciousness completely and he was intubated. Preceding the intubation he was put on dopamine and during the intubation he received pressors along with some sedatives and etomidate. Post intubation is heart rate is 90s currently and he is in sinus rhythm. His last blood pressure is 109/60 on 10 mcg of dopamine. It appears that his bradycardia and hypotension is being driven by some other process. Is quite unusual for him to develop junctional rhythm when he did not have any conduction issues previously. He also is not significantly hyperkalemic but did have a and a gap acidosis on admission along with elevated lactate due to hypoperfusion. I performed a bedside echocardiogram and his LV function is preserved and I did not see any LV dysfunction, pericardial effusion or obvious RV dysfunction to explain his hypertension. I think he is likely septic right now. He should have blood cultures and should be treated with antibiotics and should have supportive care with pressors. We can do dedicated echocardiogram on him tomorrow. I do not think currently he has any obvious indication for pacemaker placement as the bradycardia appears to be secondary to his metabolic issues. We obviously will stay involved in his care and if situation changes and an obvious indication comes forward then a discussion about pacemaker placement can be done. Hold beta-ella in the meantime. Also hold famotidine. Thank you for allowing me to participate in the care of your patient. Please feel free to contact me if you have any questions. Critical care time 01:00 hour. Time Spent With Patient Time: Total time managing care of this patient today ____ minutes. Procedures Date of Service Date of Service: 07/26/22
[2022-07-26 17:12] LABS: ABG Base Excess -5.7 mmol/L; ABG HCO3 18 mmol/L (22-26); ABG pCO2 29 mmHg (32-45); ABG pH 7.39 (7.35-7.45); ABG pO2 95 mmHg (83-108)
--- NOTE | 2022-07-26 17:37 | PC.NURSE ---
Patient breathing inefficiently, Dr Georges ordered for patient to be intubated at 1635, patient was intubated at 1644. See patient progress note for vitals and further information.
[2022-07-26] MEDS: cefEPime HCl 1 GM in 0.9 % Sodium Chloride 50 ML IV (17:57)
[2022-07-26] MEDS: Heparin Sodium,Porcine 5,000 UNIT/ML VIAL 5000 UNIT SUBCUT (17:57)
[2022-07-26 18:12] LABS: Glucose, Whole Blood 127 mg/dL (60-115)
[2022-07-26 18:18] LABS: Appearance Urine Clear; Color Urine Yellow; Glucose Urine UA Negative (Negative); Leukocyte Esterase Urine Negative (Negative); Nitrite Urine Negative (Negative); PH 5.5 (5.0-9.0); Specific Gravity - Urine <= 1.005 (1.005-1.025); UMIC TRIGGER UACC YES; Urine Blood Negative (Negative); Urine Ketones Negative (Negative); Urine Protein 100 (2+) mg/dL (Neg-Trace)
[2022-07-26 18:20] LABS: Bacteria Urine None Seen (None Seen); Hyaline Casts Urine 0-2 /LPF (0-2); RBC Urine 0-2 /HPF (0-2); Squamous Epithelial Cell Urine 0-2 /HPF (0-2); WBC Urine 0-5 /HPF (0-5)
[2022-07-26 18:29] LABS: ~Lactic Acid-LAB USE ONLY 1.1 mmol/L (0.5-2.0)
[2022-07-26 18:31] LABS: Anion Gap 19 (12-20); Blood Urea Nitrogen 46 mg/dL (9-16); Carbon Dioxide 16 mmol/L (22-29); Chloride 101 mmol/L (96-108); Creatinine Clr Calc Pharmacy 28.7; Estimated Glomerular Filt Rate 18; Glucose Random 116 mg/dL (60-115); Sodium 131 mmol/L (135-145)
[2022-07-26] MEDS: Norepinephrine Bitartrate/D5W 8 MG/250 ML PLAST..BAG 10.03 MG IV (18:41)
[2022-07-26] MEDS: Sodium Bicarbonate 8.4% 50 MEQ/50 ML VIAL IVPUSH (18:50)
--- NOTE | 2022-07-26 18:50 | PC.NURSE ---
report taken from Ed. Pt arrived to unit vented with care team at bedside; ED RN arrived w/ B.Cs. Upon arrival pt hypotensive and hypothermic. All labs obtained and sent. Lennon placed as ordered. Dopamine drip titrated per protocol. md informed of rate. levo started as ordered. Bicarb IVP given. Family updated at bedside. OGT placed and PCXR confirmed placement per MD.
[2022-07-26] MEDS: propofoL 1,000 MG/100 ML VIAL 31.26 MG IVCONT ×2 (19:44→22:13)
[2022-07-26] MEDS: Midazolam HCl/PF 2 MG/2 ML VIAL IVPUSH (19:48)
[2022-07-26 20:04] LABS: VBG HCO3 20 mmol/L (22-26); VBG pCO2 27 mmHg; VBG pH 7.47 (7.32-7.43); VBG pO2 60 mmHg
--- NOTE | 2022-07-26 20:23 | W.PM.CCHP ---
Procedures Date of Service Date of Service: 07/26/22 Central Line Placement Right IJ: Central Line Comments: Patient with poor peripheral access, requiring vasopressors and possible dialysis.? dialysis catheter with pigtail placed Right internal jugular triple lumen central venous catheter placed in usual sterile conditions under ultrasound guidance for appropriate vascular access without immediate complications. Central line position verified with Chest XRAY. consent obtained from sister Consent for Procedure: Elective - informed consent obtained (sister ) Time out performed: Yes Sterile Technique Used: Yes Patient placed on monitor/pulse ox: Yes MD prep: mask, gown and gloves Central line prep: Chlorhexidine scrub Local anesthesia used: other anesthetic (On propofol for vent sedation ) Ultrasound used for placement: Yes Post procedure: sutured in place, good blood return, all ports aspirated, flushed, capped and sterile dressing applied Post procedure x-ray: tip of catheter in good position and no pneumothorax seen Patient tolerated procedure: well and no complications Complications: none
[2022-07-26] MEDS: DOPamine HCL/D5W 400 MG/250 ML PLAST..BAG 58.61 MG IVCONT (20:28)
[2022-07-26] MEDS: Sodium Bicarbonate 8.4% 150 MEQ in Dextrose 5 % 850 ML 100 MEQ IV (20:51)
[2022-07-26] MEDS: fentaNYL citrate/NS 1,000 MCG/100 ML PLAST..BAG 2.5 MCG IVCONT (21:07)
[2022-07-26] MEDS: Chlorhexidine Gluc Oral Rinse 15 ML MOUTHWASH BUCCAL (22:13)
[2022-07-26] MEDS: vancomycin/NS 2,000 MG/500 ML PLAST..BAG 250 MG IV (22:13)
[2022-07-26 23:24] LABS: ABG Refer to POC result
[2022-07-26 23:59] LABS: Glucose, Whole Blood 247 mg/dL (60-115)
[2022-07-27] VITALS (29 sets, daily range): BP systolic 122–190; BP diastolic 62–78; PULSE 71–101; RESP 15–29; TEMP 34.6–37.3; O2SAT 93–100; BMI 35.3
[2022-07-27] MEDS: Heparin Sodium,Porcine 5,000 UNIT/ML VIAL 5000 UNIT SUBCUT ×3 (00:05→16:49)
[2022-07-27] MEDS: Insulin Lispro 100 UNIT/ML 3 ML VIAL SUBCUT ×2 (00:05→05:35)
[2022-07-27] MEDS: propofoL 1,000 MG/100 ML VIAL 31.26 MG IVCONT ×3 (01:15→06:31)
[2022-07-27 04:32] LABS: VBG Base Excess 1.7 mmol/L; VBG HCO3 23 mmol/L (22-26); VBG pCO2 27 mmHg; VBG pH 7.53 (7.32-7.43); VBG pO2 51 mmHg
[2022-07-27 04:36] LABS: MANUAL DIFF FLAG NO
[2022-07-27 04:41] LABS: Basophils Absolute Auto 0.1 X10*3/uL (0.0-0.2); Basophils Percent Auto 0.5 % (0-2); Eosinophils Absolute Auto 0.1 X10*3/uL (0.0-0.4); Eosinophils Percent Auto 0.6 % (0-4); Hematocrit 22.7 % (42.0-52.0); Hemoglobin 8.1 g/dl (14.0-18.0); Imm Gran Abs Auto 0.07 X10*3/uL (0.00-0.03); Imm Gran Pct Auto 0.7 % (0.0-0.4); Lymphocytes Absolute Auto 1.3 X10*3/uL (1.2-4.9); Mean Corpuscular HGB Conc 35.7 g/dl (31.0-36.0); Mean Corpuscular Hemoglobin 29.6 pg (27.0-33.0); Mean Corpuscular Volume 82.8 fL (80.0-98.0); Mean Platelet Volume 9.5 fL (9.4-12.4); Monocytes Percent Auto 10.7 % (2-11); Neutrophils Percent Auto 73.5 % (45-73); Platelet Count 168 X10*3/uL (160-400); Red Blood Count 2.74 X10*6/uL (4.60-5.80); Red Cell Distribution Width 12.7 % (11.0-16.0); White Blood Count 9.5 X10*3/uL (4.8-10.8)
[2022-07-27 05:18] LABS: Alanine Aminotransferase 63 U/L (0-40); Albumin Level 3.2 g/dL (3.5-5.0); Alkaline Phosphatase 170 U/L (39-117); Anion Gap 12 (12-20); Aspartate Amino Transferase 35 U/L (5-37); Bilirubin Total 0.3 mg/dL (0.0-1.0); Blood Urea Nitrogen 43 mg/dL (9-16); Calcium 8.6 mg/dL (8.4-10.2); Carbon Dioxide 23 mmol/L (22-29); Chloride 100 mmol/L (96-108); Creatinine Clr Calc Pharmacy 30.3; Estimated Glomerular Filt Rate 20; Glucose Random 159 mg/dL (60-115); Magnesium 1.3 mg/dL (1.6-2.6); Phosphorus 3.1 mg/dL (2.7-4.5); Potassium 3.7 mmol/L (3.3-5.1); Sodium 131 mmol/L (135-145); Total Protein 5.8 g/dL (6.5-8.0)
[2022-07-27 05:21] LABS: Venous Blood Gas Refer to POC result
[2022-07-27] MEDS: Magnesium Sulfate/H2O 2 GM/50 ML PIGGYBACK IV (05:35)
--- NOTE | 2022-07-27 06:26 | PC.NURSE ---
Assumed care at 1845. A HD cath was placed in the Right IJ. Pt was weaned off both dopamine and levo. Maintaining heart rate in the 70's and SBP 130-160's. Added fentanyl gtt d/t agitation. Propofol maxed at 50mcg. Right AC IV infiltrated, removed and warm compresses utilized. Mag was critical this AM at 1.3; replaced with 2 grams. Pt urine output has been 75-350/hr. Complete bath and hammer care done.
[2022-07-27] MEDS: Chlorhexidine Gluc Oral Rinse 15 ML MOUTHWASH BUCCAL (07:23)
[2022-07-27] MEDS: Famotidine/PF 20 MG/2 ML VIAL IVPUSH (07:23)
[2022-07-27] MEDS: fentaNYL citrate/NS 1,000 MCG/100 ML PLAST..BAG 5 MCG IVCONT (08:10)
[2022-07-27] MEDS: propofoL 1,000 MG/100 ML VIAL 15.63 MG IVCONT (09:54)
--- NOTE | 2022-07-27 10:35 | P.CDIM_ITS ---
PROVIDER RESPONSE TEXT: To clarify, the appropriate diagnosis supported by the clinical indicators: CKD stage 4 QUERY TEXT: PHYSICIAN'S DOCUMENTATION REQUEST Date of Query: 07/27/2022 08:58 AM EDT Patient Name: Larry Dias V Admit Date: 07/26/2022 Dear Darrel Hoover, A review of the medical record indicates additional documentation may be needed. Please review below and update the documentation accordingly. Clinical Indicators: Per H&P 07/26/22: underlying CKD stage 3 to 4 BUN 44 Creatinine 3.51 Estimated GFR 18 Please clarify which of the following accurately represents the patient's renal status: CKD stage 3a CKD stage 3b CKD stage 4 Other, please specify Other (explain) Clinically unable to determine (explain) Thank you, Hillary Dozier RN Use of terms such as suspected, likely, concern for, or probable (associated with a specific diagnosi s that is being evaluated, monitored, or treated as if it exists) are acceptable and can be coded in the inpatient se tting, when documented at the time of discharge. Please use your independent medical judgment in providing your response. THIS QUERY IS PART OF THE PERMANENT MEDICAL RECORD
--- NOTE | 2022-07-27 11:19 | MHC.CM.PN ---
Pt presently on ventilatory support and unable to give information Call placed to pt's dtr/HCP, Harriet who notes pt lives w/family, has VNA from [facility], uses a cane and has working DM management supplies. No barriers to care needs. Re-referred to [facility] for continuation of home services. Family will transport: HCP on file, IMM in chart.
[2022-07-27 12:23] LABS: Glucose, Whole Blood 127 mg/dL (60-115)
--- NOTE | 2022-07-27 13:08 | P.PNCC_ITS ---
Subjective Subjective Date of Service: 07/27/22 Interval History: 56-year-old gentleman with underlying obesity, hypertension, diabetes mellitus, CKD stage 3-4, depression/conversion disorder being admitted for symptomatic bradycardia and acute on chronic kidney failure with hyperkalemia and metabolic acidosis. patient has recently been discharged from [facility] after being treated for pneumonia and acute kidney injury with increase in his antihypertensive regimen. He has started on IV fluids with no improvement in urine output or blood pressure in emergency room and thereafter admitted to intensive care unit for further workup and management. patient intubated in emergency room for respiratory distress. Patient required vasopressor support overnight, but now titrated off. Extubated uneventfully this a.m.. Overnight events as above. Critical Care Time (minutes): 45 Physical Exam Vital Signs: Vital Signs: Last Vital Signs Temp 98.2 F 07/27/22 12:00 Pulse 87 07/27/22 12:00 Resp 17 07/27/22 12:00 BP 139/69 07/27/22 12:00 Pulse Ox 93 07/27/22 12:00 O2 Del Method Nasal Cannula 07/27/22 12:00 O2 Flow Rate 2 07/27/22 12:00 FiO2 30 07/27/22 11:00 BMI result Body Mass Index 35.3 Const: General: no acute distress, alert and awake Eyes: Sclerae: sclerae normal EOM: EOMs intact bilaterally Neck: Neck: Yes no lymphadenopathy, Yes trachea midline and Yes supple Resp: Effort & Inspection: normal respiratory effort and no respiratory distress Auscultation: crackles ( bibasilar) Cardio: Rate: regular rate Rhythm: regular rhythm Heart sounds: no gallops, no murmurs and no rubs GI: Palpation (GI): Soft to palpation and Other GI palpation findings present ( Nontender) Auscultation: normal bowel sounds Extrem: General: Yes no pedal edema, No clubbing and No cyanosis Objective Data Labs 07/27/22 04:25 07/27/22 04:25 Labs: Laboratory Results - last 24 hr 07/26/22 07/26/22 07/26/22 14:28 14:28 14:28 WBC 12.4 H RBC 3.03 L Hgb 8.9 L Hct 26.4 L MCV 87.1 MCH 29.4 MCHC 33.7 RDW 13.0 Plt Count 218 MPV 9.7 Immature Gran % (Auto) 0.8 H Neut % (Auto) 74.4 H Lymph % (Auto) 13.5 L [place] % (Auto) 9.5 Eos % (Auto) 1.2 Baso % (Auto) 0.6 Lymph # (Auto) 1.7 [place] # (Auto) 1.2 Eos # (Auto) 0.2 Baso # (Auto) 0.1 Abs Immat Gran (auto) 0.10 H Absolute Neuts (auto) 9.2 H Absolute Nucleated RBC 0.000 Nucleated RBC % (auto) 0.0 O2 Saturation ABG pH at Pt Temp ABG pCO2 at Pt Temp ABG pO2 at Pt Temp ABG HCO3 ABG Base Excess (Actual) VBG pH VBG pCO2 VBG pO2 VBG HCO3 VBG O2 Saturation VBG Base Excess Sodium 131 L Potassium 5.6 H D Chloride 98 Carbon Dioxide 19 L Anion Gap 20 BUN 44 H Creatinine 3.51 H Estim Creat Clear Calc 27.9 Estimated GFR 18 POC Glucose Random Glucose 76 Lactic Acid 3.7 H* Lactic Acid F/U @ 2Hr Calcium 9.1 Phosphorus Magnesium Total Bilirubin 0.5 AST 27 ALT 39 Alkaline Phosphatase 177 H Troponin I High Sens Total Protein 6.9 Albumin 3.8 TSH 1.62 Urine Color Urine Appearance Urine pH Ur Specific [place] Urine Protein Urine Glucose (UA) Urine Ketones Urine Blood Urine Nitrite Ur Leukocyte Esterase Urine RBC Urine WBC Ur Squamous Epith Cells Urine Bacteria Hyaline Casts 07/26/22 07/26/22 07/26/22 14:28 15:06 15:41 WBC RBC Hgb Hct MCV MCH MCHC RDW Plt Count MPV Immature Gran % (Auto) Neut % (Auto) Lymph % (Auto) [place] % (Auto) Eos % (Auto) Baso % (Auto) Lymph # (Auto) [place] # (Auto) Eos # (Auto) Baso # (Auto) Abs Immat Gran (auto) Absolute Neuts (auto) Absolute Nucleated RBC Nucleated RBC % (auto) O2 Saturation ABG pH at Pt Temp ABG pCO2 at Pt Temp ABG pO2 at Pt Temp ABG HCO3 ABG Base Excess (Actual) VBG pH VBG pCO2 VBG pO2 VBG HCO3 VBG O2 Saturation VBG Base Excess Sodium Potassium Chloride Carbon Dioxide Anion Gap BUN Creatinine Estim Creat Clear Calc Estimated GFR POC Glucose 62 88 Random Glucose Lactic Acid Lactic Acid F/U @ 2Hr Calcium Phosphorus Magnesium Total Bilirubin AST ALT Alkaline Phosphatase Troponin I High Sens 6.5 Total Protein Albumin TSH Urine Color Urine Appearance Urine pH Ur Specific [place] Urine Protein Urine Glucose (UA) Urine Ketones Urine Blood Urine Nitrite Ur Leukocyte Esterase Urine RBC Urine WBC Ur Squamous Epith Cells Urine Bacteria Hyaline Casts 07/26/22 07/26/22 07/26/22 16:28 17:04 17:58 WBC RBC Hgb Hct MCV MCH MCHC RDW Plt Count MPV Immature Gran % (Auto) Neut % (Auto) Lymph % (Auto) [place] % (Auto) Eos % (Auto) Baso % (Auto) Lymph # (Auto) [place] # (Auto) Eos # (Auto) Baso # (Auto) Abs Immat Gran (auto) Absolute Neuts (auto) Absolute Nucleated RBC Nucleated RBC % (auto) O2 Saturation 96.0 ABG pH at Pt Temp 7.39 ABG pCO2 at Pt Temp 29 L ABG pO2 at Pt Temp 95 ABG HCO3 18 L ABG Base Excess (Actual) -5.7 VBG pH VBG pCO2 VBG pO2 VBG HCO3 VBG O2 Saturation VBG Base Excess Sodium Potassium Chloride Carbon Dioxide Anion Gap BUN Creatinine Estim Creat Clear Calc Estimated GFR POC Glucose 107 Random Glucose Lactic Acid Lactic Acid F/U @ 2Hr Calcium Phosphorus Magnesium Total Bilirubin AST ALT Alkaline Phosphatase Troponin I High Sens Total Protein Albumin TSH Urine Color Yellow Urine Appearance Clear Urine pH 5.5 Ur Specific [place] <= 1.005 Urine Protein 100 (2+) H Urine Glucose (UA) Negative Urine Ketones Negative Urine Blood Negative Urine Nitrite Negative Ur Leukocyte Esterase Negative Urine RBC 0-2 Urine WBC 0-5 Ur Squamous Epith Cells 0-2 Urine Bacteria None Seen Hyaline Casts 0-2 07/26/22 07/26/22 07/26/22 18:08 18:08 18:08 WBC RBC Hgb Hct MCV MCH MCHC RDW Plt Count MPV Immature Gran % (Auto) Neut % (Auto) Lymph % (Auto) [place] % (Auto) Eos % (Auto) Baso % (Auto) Lymph # (Auto) [place] # (Auto) Eos # (Auto) Baso # (Auto) Abs Immat Gran (auto) Absolute Neuts (auto) Absolute Nucleated RBC Nucleated RBC % (auto) O2 Saturation ABG pH at Pt Temp ABG pCO2 at Pt Temp ABG pO2 at Pt Temp ABG HCO3 ABG Base Excess (Actual) VBG pH VBG pCO2 VBG pO2 VBG HCO3 VBG O2 Saturation VBG Base Excess Sodium 131 L Potassium 5.0 Chloride 101 Carbon Dioxide 16 L Anion Gap 19 BUN 46 H Creatinine 3.46 H Estim Creat Clear Calc 28.7 Estimated GFR 18 POC Glucose 127 H Random Glucose 116 H Lactic Acid Lactic Acid F/U @ 2Hr 1.1 Calcium 9.0 Phosphorus Magnesium Total Bilirubin AST ALT Alkaline Phosphatase Troponin I High Sens Total Protein Albumin TSH Urine Color Urine Appearance Urine pH Ur Specific [place] Urine Protein Urine Glucose (UA) Urine Ketones Urine Blood Urine Nitrite Ur Leukocyte Esterase Urine RBC Urine WBC Ur Squamous Epith Cells Urine Bacteria Hyaline Casts 07/26/22 07/26/22 07/27/22 19:55 23:55 04:23 WBC RBC Hgb Hct MCV MCH MCHC RDW Plt Count MPV Immature Gran % (Auto) Neut % (Auto) Lymph % (Auto) [place] % (Auto) Eos % (Auto) Baso % (Auto) Lymph # (Auto) [place] # (Auto) Eos # (Auto) Baso # (Auto) Abs Immat Gran (auto) Absolute Neuts (auto) Absolute Nucleated RBC Nucleated RBC % (auto) O2 Saturation ABG pH at Pt Temp ABG pCO2 at Pt Temp ABG pO2 at Pt Temp ABG HCO3 ABG Base Excess (Actual) VBG pH 7.47 H 7.53 H VBG pCO2 27 27 VBG pO2 60 51 VBG HCO3 20 L 23 VBG O2 Saturation 87.0 82.0 VBG Base Excess -2.0 1.7 Sodium Potassium Chloride Carbon Dioxide Anion Gap BUN Creatinine Estim Creat Clear Calc Estimated GFR POC Glucose 247 H Random Glucose Lactic Acid Lactic Acid F/U @ 2Hr Calcium Phosphorus Magnesium Total Bilirubin AST ALT Alkaline Phosphatase Troponin I High Sens Total Protein Albumin TSH Urine Color Urine Appearance Urine pH Ur Specific [place] Urine Protein Urine Glucose (UA) Urine Ketones Urine Blood Urine Nitrite Ur Leukocyte Esterase Urine RBC Urine WBC Ur Squamous Epith Cells Urine Bacteria Hyaline Casts 07/27/22 07/27/22 07/27/22 04:25 04:25 12:19 WBC 9.5 RBC 2.74 L Hgb 8.1 L Hct 22.7 L MCV 82.8 MCH 29.6 MCHC 35.7 RDW 12.7 Plt Count 168 MPV 9.5 Immature Gran % (Auto) 0.7 H Neut % (Auto) 73.5 H Lymph % (Auto) 14.0 L [place] % (Auto) 10.7 Eos % (Auto) 0.6 Baso % (Auto) 0.5 Lymph # (Auto) 1.3 [place] # (Auto) 1.0 Eos # (Auto) 0.1 Baso # (Auto) 0.1 Abs Immat Gran (auto) 0.07 H Absolute Neuts (auto) 7.0 Absolute Nucleated RBC 0.000 Nucleated RBC % (auto) 0.0 O2 Saturation ABG pH at Pt Temp ABG pCO2 at Pt Temp ABG pO2 at Pt Temp ABG HCO3 ABG Base Excess (Actual) VBG pH VBG pCO2 VBG pO2 VBG HCO3 VBG O2 Saturation VBG Base Excess Sodium 131 L Potassium 3.7 D Chloride 100 Carbon Dioxide 23 Anion Gap 12 BUN 43 H Creatinine 3.28 H Estim Creat Clear Calc 30.3 Estimated GFR 20 POC Glucose 127 H Random Glucose 159 H Lactic Acid Lactic Acid F/U @ 2Hr Calcium 8.6 Phosphorus 3.1 Magnesium 1.3 L* Total Bilirubin 0.3 AST 35 ALT 63 H Alkaline Phosphatase 170 H Troponin I High Sens Total Protein 5.8 L Albumin 3.2 L TSH Urine Color Urine Appearance Urine pH Ur Specific [place] Urine Protein Urine Glucose (UA) Urine Ketones Urine Blood Urine Nitrite Ur Leukocyte Esterase Urine RBC Urine WBC Ur Squamous Epith Cells Urine Bacteria Hyaline Casts Progress Note: A&P Assessment and plan (1) Acute hypotension: Status: Acute (2) Symptomatic bradycardia: Status: Acute (3) Acute hyperkalemia: Status: Acute (4) Acute respiratory failure with hypoxia: Status: Acute (5) Metabolic acidosis: Status: Acute (6) Acute on chronic kidney failure: Status: Acute (7) (HFpEF) heart failure with preserved ejection fraction: Status: Acute (8) Type 2 diabetes mellitus with obesity: Status: Acute (9) GARCIA (nonalcoholic steatohepatitis): Status: Acute Plan Assessment: 56-year-old gentleman with underlying CKD stage 3 to 4, obesity, diabetes mellitus, diastolic heart failure admitted with symptomatic bradycardia and acute on chronic kidney injury after recent increasing his blood pressure regimen Plan: Neuro: No acute issues. Cardiac: Titrated off pressor support.Symptomatic bradycardia, resolved. Cardiology service care appreciated. Likely secondary to increased effect of antihypertensive/rate control medications. Restart antihypertensive regimen as tolerated. Pulmonary: Extubated uneventfully this a.m.. Renal: Acute on chronic kidney injury with hyperkalemia and metabolic lactic acidosis, improved. Non oliguric. Continue to monitor renal indices and urine output. Endo: No acute issues. underlying diabetes mellitus. Continue on Sliding scale insulin protocol. GI: No acute issues. ID: Empirically covered with broad-spectrum antibiotics. Cultures are pending. No evidence of sepsis, elevated lactate, end organ dysfunction, and hypotension likely secondary to symptomatic bradycardia. Heme/Onc: No acute issues. Psych: No acute issues. Miscellaneous: No acute issues. Prophylaxis: Heparin Diet: diabetic Critical care time spent: 45 minutes Quality Stroke Does the patient have a stroke diagnosis?: No VTE Prior VTE?: No VTE Risk Level:: Medical - moderate - high VTE Device Contraindication: N/A - Device Ordered VTE Drug Contraindication: N/A - Med Ordered
[2022-07-27 16:07] LABS: Glucose, Whole Blood 132 mg/dL (60-115)
[2022-07-27 19:51] LABS: Glucose, Whole Blood 136 mg/dL (60-115)
[2022-07-28] MEDS: Heparin Sodium,Porcine 5,000 UNIT/ML VIAL 5000 UNIT SUBCUT ×4 (00:09→23:47)
[2022-07-28] MEDS: traZODone HCL 100 MG TABLET PO (00:35)
[2022-07-28] MEDS: traZODone HCL 50 MG TABLET PO (00:35)
--- NOTE | 2022-07-28 03:11 | PC.NURSE ---
Addendum entered by Nayla Shore RN 07/28/22 04:10: 0339; bp now 180/84, hr 90 Patient offers no complaints at this time. Dr. Rainey updated on patient's bp Original Note: 0016; bp elevated 174/78, hr 96. Patient's home bp meds not ordered, Dr. Rainey notified.
[2022-07-28 03:18] VITALS: BP 180/84; PULSE 90; RESP 20; TEMP 36.8; O2SAT 99
[2022-07-28 06:20] LABS: MANUAL DIFF FLAG NO
[2022-07-28 06:38] LABS: Basophils Absolute Auto 0.1 X10*3/uL (0.0-0.2); Basophils Percent Auto 0.7 % (0-2); Eosinophils Absolute Auto 0.2 X10*3/uL (0.0-0.4); Hematocrit 26.4 % (42.0-52.0); Hemoglobin 8.6 g/dl (14.0-18.0); Imm Gran Abs Auto 0.04 X10*3/uL (0.00-0.03); Imm Gran Pct Auto 0.4 % (0.0-0.4); Lymphocytes Absolute Auto 1.5 X10*3/uL (1.2-4.9); Lymphocytes Percent Auto 16.5 % (20-40); Mean Corpuscular HGB Conc 32.6 g/dl (31.0-36.0); Mean Corpuscular Hemoglobin 28.9 pg (27.0-33.0); Mean Corpuscular Volume 88.6 fL (80.0-98.0); Mean Platelet Volume 9.9 fL (9.4-12.4); Monocytes Percent Auto 11.4 % (2-11); Neutrophils Absolute Auto 6.2 x10*3/uL (2.0-8.3); Platelet Count 194 X10*3/uL (160-400); Red Blood Count 2.98 X10*6/uL (4.60-5.80); Red Cell Distribution Width 13.1 % (11.0-16.0); White Blood Count 8.9 X10*3/uL (4.8-10.8)
[2022-07-28 06:55] LABS: Alanine Aminotransferase 53 U/L (0-40); Albumin Level 3.4 g/dL (3.5-5.0); Alkaline Phosphatase 191 U/L (39-117); Anion Gap 12 (12-20); Aspartate Amino Transferase 22 U/L (5-37); Bilirubin Total 0.4 mg/dL (0.0-1.0); Blood Urea Nitrogen 32 mg/dL (9-16); Carbon Dioxide 26 mmol/L (22-29); Chloride 106 mmol/L (96-108); Creatinine Clr Calc Pharmacy 41.3; Estimated Glomerular Filt Rate 28; Glucose Random 85 mg/dL (60-115); Magnesium 1.8 mg/dL (1.6-2.6); Phosphorus 4.2 mg/dL (2.7-4.5); Potassium 4.8 mmol/L (3.3-5.1); Sodium 139 mmol/L (135-145); Total Protein 6.1 g/dL (6.5-8.0)
[2022-07-28 07:41] LABS: VBG HCO3 28 mmol/L (22-26); VBG pCO2 34 mmHg; VBG pH 7.52 (7.32-7.43); VBG pO2 215 mmHg
[2022-07-28 07:45] LABS: Venous Blood Gas Refer to POC result
[2022-07-28 07:47] VITALS: BP 180/85; PULSE 90; RESP 20; TEMP 36.8; O2SAT 100
[2022-07-28 08:09] LABS: Glucose, Whole Blood 98 mg/dL (60-115)
--- NOTE | 2022-07-28 09:27 | HO.PM.IMPN ---
Subjective Subjective Date of Service: 07/28/22 Interval History: improving Physical Exam Vital Signs: Vital Signs: Last Vital Signs Temp 98.2 F 07/28/22 07:47 Pulse 90 07/28/22 07:47 Resp 20 07/28/22 07:47 BP 180/85 H 07/28/22 07:47 Pulse Ox 100 07/28/22 07:47 O2 Del Method Nasal Cannula 07/28/22 07:47 O2 Flow Rate 2 07/28/22 07:47 FiO2 30 07/27/22 11:00 BMI result Body Mass Index 35.3 General: AO X 3, no acute distress Resp: CTA bilateral, no accessory muscles used CVS: S1,S2,RRR GI: soft, non tender, non distended Neuro: motor grossly intact, alert Psych: appropriate affect, appropriate insight Objective Data Active Medications Heparin Sodium (Porcine) (Heparin Sodium,Porcine 5,000 Unit/Ml Vial) 5,000 unit SUBCUT Q8H [facility] Last Admin: 07/28/22 00:09 Dose: 5,000 unit Documented By: DONALDO Insulin Human Lispro (Insulin Lispro 100 Unit/Ml 3 Ml Vial) 0 unit SUBCUT QIDACHS [facility]; Protocol Last Admin: 07/28/22 08:21 Dose: Not Given Documented By: MARIANO Non-Admin Reason: No Insulin Coverage Isosorbide Mononitrate (Isosorbide Mononitrate 30 Mg Tab.Er.24h) 30 mg PO DAILY [facility]; Protocol Pharmacy Consult (Consult Rx Perform Med Rec) 1 each MISCELLANE ONCE PRN PRN Reason: Consult order Labs 07/28/22 05:45 07/28/22 05:45 Labs: Laboratory Results - last 24 hr 07/27/22 07/27/22 07/27/22 12:19 16:01 19:35 MCV MCH MCHC RDW Plt Count MPV Immature Gran % (Auto) Neut % (Auto) Lymph % (Auto) [place] % (Auto) Eos % (Auto) Baso % (Auto) Lymph # (Auto) [place] # (Auto) Eos # (Auto) Baso # (Auto) Abs Immat Gran (auto) Absolute Neuts (auto) Absolute Nucleated RBC Nucleated RBC % (auto) VBG pH VBG pCO2 VBG pO2 VBG HCO3 VBG O2 Saturation VBG Base Excess Anion Gap Estim Creat Clear Calc Estimated GFR POC Glucose 127 H 132 H 136 H Random Glucose Calcium Phosphorus Magnesium Total Bilirubin AST ALT Alkaline Phosphatase Total Protein Albumin 07/28/22 07/28/22 07/28/22 05:45 05:45 07:13 MCV 88.6 D MCH 28.9 MCHC 32.6 RDW 13.1 Plt Count 194 MPV 9.9 Immature Gran % (Auto) 0.4 Neut % (Auto) 69.0 Lymph % (Auto) 16.5 L [place] % (Auto) 11.4 H Eos % (Auto) 2.0 Baso % (Auto) 0.7 Lymph # (Auto) 1.5 [place] # (Auto) 1.0 Eos # (Auto) 0.2 Baso # (Auto) 0.1 Abs Immat Gran (auto) 0.04 H Absolute Neuts (auto) 6.2 Absolute Nucleated RBC 0.000 Nucleated RBC % (auto) 0.0 VBG pH 7.52 H VBG pCO2 34 VBG pO2 215 VBG HCO3 28 H VBG O2 Saturation 100.0 VBG Base Excess TNP Anion Gap 12 Estim Creat Clear Calc 41.3 Estimated GFR 28 POC Glucose Random Glucose 85 Calcium 9.0 Phosphorus 4.2 Magnesium 1.8 Total Bilirubin 0.4 AST 22 ALT 53 H Alkaline Phosphatase 191 H Total Protein 6.1 L Albumin 3.4 L 07/28/22 08:00 MCV MCH MCHC RDW Plt Count MPV Immature Gran % (Auto) Neut % (Auto) Lymph % (Auto) [place] % (Auto) Eos % (Auto) Baso % (Auto) Lymph # (Auto) [place] # (Auto) Eos # (Auto) Baso # (Auto) Abs Immat Gran (auto) Absolute Neuts (auto) Absolute Nucleated RBC Nucleated RBC % (auto) VBG pH VBG pCO2 VBG pO2 VBG HCO3 VBG O2 Saturation VBG Base Excess Anion Gap Estim Creat Clear Calc Estimated GFR POC Glucose 98 Random Glucose Calcium Phosphorus Magnesium Total Bilirubin AST ALT Alkaline Phosphatase Total Protein Albumin Microbiology Microbiology Results: Microbiology 07/26/22 17:40 Blood Culture - Preliminary Blood - Venous No growth after 24 hours. Assessment and Plan (1) Acute hypotension: Status: Acute Plan 56-year-old gentleman with underlying obesity, hypertension, diabetes mellitus, CKD stage 3-4,? depression/conversion disorder admitted to icu for symptomatic hyotension and bradycardia complciated by acute hypoxic respiratory failure requiring intubation. now extubated and down to 2L nc. acute hypoxic respiratory failure s/p extubation now on 2L NC continue to wean symptomatic hypotension, bradycardia due to medication, hypovolemia required pressors briefly now hypertensive bps very labile will restart imdur 30mg daily nephro eval LEDA on CKD IV due to hypotension, hypovolemia now at baseline DM insulin hfpef diuretics on hold depression meds on hold obesity GARCIA weight loss dvt prophylaxis - hep sq full code reason for continued hospitalization:labile bps, needing o2 Time Spent With Patient Time: Total time managing care of this patient today ____ minutes. Quality Stroke Does the patient have a stroke diagnosis?: No VTE Prior VTE?: No VTE Risk Level:: Medical - moderate - high VTE Device Contraindication: N/A - Device Ordered VTE Drug Contraindication: N/A - Med Ordered
[2022-07-28] MEDS: Isosorbide Mononitrate 30 MG TAB.ER.24H PO (09:42)
[2022-07-28 11:55] LABS: Glucose, Whole Blood 198 mg/dL (60-115)
[2022-07-28 12:00] VITALS: BP 174/68; PULSE 90; RESP 18; TEMP 37.1; O2SAT 100
[2022-07-28] MEDS: Insulin Lispro 100 UNIT/ML 3 ML VIAL SUBCUT ×2 (12:19→17:09)
--- NOTE | 2022-07-28 13:18 | P.CONNP_ITS ---
History of Present Illness Reason for Consult Consult date: 07/28/22 Reason for consult: CKD and HTN Chief Complaint Chief complaint: Symptomatic bradycardia History of Present Illness Narrative: ?56-year-old gentleman with underlying obesity, hypertension, diabetes mellitus, CKD stage 3-4,? depression/conversion disorder? being admitted for symptomatic bradycardia and acute on chronic kidney failure with hyperkalemia and metabolic acidosis. patient has recently been discharged from [facility] after being treated for pneumonia and acute kidney injury with increase in his antihypertensive regimen.? He has started on IV fluids with no improvement in urine output or blood pressure in emergency room? and thereafter admitted to intensive care unit for further workup and management. Recently discharged from the hospital. He had Leda which resolved the creatinine was at baseline of 2.4 upon discharge. There is been a wide fluctuation in the blood pressures. He was hypotensive requiring significant amount of fluids yesterday. This today he is rather hypertensive. Today he is having swelling of the right upper extremity with blisters. Review of Systems Constitutional: Reports as per [facility] Past Medical History Medical History Acute hyponatremia Anxiety Chronic hyperglycemia CKD (chronic kidney disease) CKD (chronic kidney disease) CKD (chronic kidney disease) stage 3, GFR 30-59 ml/min CKD (chronic kidney disease) stage 4, GFR 15-29 ml/min Depression Diabetes Diabetes mellitus with coincident hypertension Diabetes type 2, uncontrolled Diabetic nephropathy associated with type 2 diabetes mellitus Diabetic neuropathy associated with type 2 diabetes mellitus Dyslipidemia Essential hypertension GERD (gastroesophageal reflux disease) Hepatitis High cholesterol Hypercalcemia Hyperlipidemia Hypertension shelter (current) use of insulin Metabolic acidosis Neuropathy New onset of congestive heart failure Obesity Obesity (BMI 30-39.9) Severe depression Sleep apnea Type 2 diabetes mellitus with obesity Vitamin D deficiency Family History Family History Father Diabetes Mother No problems noted. Surgical History Surgical History H/O colonoscopy History of esophagogastroduodenoscopy (EGD) Hx of arthroscopy of knee Hx of arthroscopy of right knee Social History Social History Household Members: Unknown / Unable to assess Household Members Other:: SISTER Housing: Apartment Do you presently have visiting nurse or other home services: Yes Unable to assess alcohol history related to: Unable to respond and Unknown Alcohol intake: never Patient Tobacco Use Status: Never used Tobacco e-Cigarette/Vaping Use: Never Used Second Hand Smoke Exposure: Yes (HISTORY OF SECOND HAND SMOKE EXPOSURE) Advance Directives Date on File: 05/05/20 service: No Current occupational status: disabled Current occupation: right handed Cognitive needs: No Hearing needs: No Vision needs: No Meds Allergies Allergy/AdvReac Type Severity Reaction Status Date / Time cephalexin [From KEFLEX] Allergy Mild ITCHY Verified 05/31/22 14:14 THROAT lisinopril [LISINOPRIL] Allergy Unknown SWELLING Verified 05/31/22 14:14 COUGH Active Medications: Current Medications Heparin Sodium (Porcine) (Heparin Sodium,Porcine 5,000 Unit/Ml Vial) 5,000 unit SUBCUT Q8H [facility] Last Admin: 07/28/22 09:42 Dose: 5,000 unit Insulin Human Lispro (Insulin Lispro 100 Unit/Ml 3 Ml Vial) 0 unit SUBCUT QID ACHS [facility]; Protocol Last Admin: 07/28/22 12:19 Dose: 2 unit Isosorbide Mononitrate (Isosorbide Mononitrate 30 Mg Tab.Er.24h) 30 mg PO DAILY [facility]; Protocol Last Admin: 07/28/22 09:42 Dose: 30 mg Pharmacy Consult (Consult Rx Perform Med Rec) 1 each MISCELLANE ONCE PRN PRN Reason: Consult order Home Medications Medication Instructions Recorded Confirmed Last Taken Type venlafaxine 150 mg 150 mg PO DAILY 10/30/21 07/26/22 07/21/22 09:00 History capsule,extended release 24 hr multivitamin with folic acid 400 1 tab PO DAILY 03/06/22 07/26/22 07/21/22 09:00 History mcg tablet (Tab-A-George) pen needle, diabetic 32 gauge x #50 ea 03/06/22 06/02/22 Unknown History 06/14 (Ultracare Pen Needle) bupropion HCl 150 mg 24 hr tablet, 150 mg PO DAILY 05/16/22 07/26/22 07/21/22 09:00 History extended release insulin aspart U-100 100 unit/mL 14 unit subcut TIDAC 05/16/22 07/26/22 07/21/22 18:00 History (3 mL) subcutaneous pen (Novolog FlexPen U-100 Insulin aspart) insulin glargine U-300 conc 300 70 unit subcut DAILY 05/16/22 07/26/22 07/21/22 09:00 History unit/mL (3 mL) subcutaneous pen (Toujeo Max U-300 SoloStar) meclizine 25 mg tablet 25 mg PO Q6H PRN Dizziness 05/16/22 07/26/22 06/18/22 History trazodone 150 mg tablet 150 mg PO BEDTIME 05/16/22 07/26/22 07/20/22 History Physical Exam Vital Signs: Last Vital Signs Temp 98.2 F 07/28/22 07:47 Pulse 90 07/28/22 07:47 Resp 20 07/28/22 07:47 BP 180/85 H 07/28/22 07:47 Pulse Ox 100 07/28/22 07:47 O2 Del Method Nasal Cannula 07/28/22 07:47 O2 Flow Rate 2 07/28/22 07:47 FiO2 30 07/27/22 11:00 BMI result Body Mass Index 35.3 Const:?? General: no acute distress and lethargic ( arousable and answers appropriately)? Nutritional Appearance: obese? Orientation/consciousness: lethargic ( arousable and answers appropriately) and Other orientation findings ( oriented) HEENT:?? Head: Yes atraumatic? Mouth: no other ( thrush)? Throat: No postnasal drainage Eyes:?? General: appearance normal, both eyes and all related structures? Sclerae: sclerae normal? EOM: EOMs intact bilaterally Neck:?? Neck: Yes supple? Lymphatic: no lymphadenopathy noted Resp:?? Effort & Inspection: normal respiratory effort and no use of accessory muscles? Auscultation: clear to auscultation bilaterally Cardio:?? Rate: bradycardic? Rhythm: regular rhythm? Heart sounds: no gallops, no murmurs and no rubs GI:?? Palpation (GI): Soft to palpation and Other GI palpation findings present ( nontender) Skin:?? General skin exam: other ( warm)? Rashes: no rashes Extrem:?? General: No clubbing, No cyanosis and Yes edema ( 1+ bilateral) Significant edema of the right upper extremity with blisters Results Lab Results 07/28/22 05:45 07/28/22 05:45 Lab results: Chemistry 07/26/22 07/26/22 07/27/22 14:28 18:08 04:25 Sodium 131 L 131 L 131 L Potassium 5.6 H D 5.0 3.7 D Carbon Dioxide 19 L 16 L 23 BUN 44 H 46 H 43 H Creatinine 3.51 H 3.46 H 3.28 H Calcium 9.1 9.0 8.6 Phosphorus 3.1 07/28/22 05:45 Sodium 139 Potassium 4.8 D Carbon Dioxide 26 BUN 32 H Creatinine 2.42 H Calcium 9.0 Phosphorus 4.2 Hematology 07/26/22 07/27/22 07/28/22 14:28 04:25 05:45 WBC 12.4 H 9.5 8.9 Hgb 8.9 L 8.1 L 8.6 L Plt Count 218 168 194 Urinalysis 07/26/22 17:58 Urine Color Yellow Urine Appearance Clear Urine pH 5.5 Ur Specific [place] <= 1.005 Urine Protein 100 (2+) H Urine Glucose (UA) Negative Urine Ketones Negative Urine Blood Negative Urine Nitrite Negative Ur Leukocyte Esterase Negative Urine RBC 0-2 Urine WBC 0-5 Ur Squamous Epith Cells 0-2 Hyaline Casts 0-2 Assessment and Plan (1) Acute on chronic kidney failure: Status: Acute (2) Acute hypotension: Status: Acute Plan 56-year-old man with stage IIIB CKD. Recently he had LEDA which has resolved History of hypertension with wide fluctuations in the blood pressure including hypotension on admission. I will review the old records to has undergone any further workup for the labile hypertension. For now I will keep him on oral hydralazine 3 times a day which can be titrated based on his blood pressure. Resume diuretics and keep him in a negative fluid balance. Monitor serum creatinine. Continue to avoid nephrotoxic agents. Ultrasound of her right upper extremity to rule out DVT Continue to hold ADONAY inhibitors and ARB for the time being. Time Spent With Patient Time: Total time managing care of this patient today ____ minutes. Procedures Date of Service Date of Service: 07/28/22
[2022-07-28 15:24] VITALS: BP 168/89; PULSE 80; RESP 17; TEMP 37.1; O2SAT 92
[2022-07-28 15:45] LABS: Glucose, Whole Blood 187 mg/dL (60-115)
[2022-07-28 19:43] VITALS: BP 179/100; PULSE 93; RESP 17; TEMP 37.1; O2SAT 96
[2022-07-28 19:51] LABS: Glucose, Whole Blood 150 mg/dL (60-115)
[2022-07-28] MEDS: traZODone HCL 50 MG TABLET 150 MG PO (21:54)
[2022-07-28 23:43] VITALS: BP 195/84; PULSE 84; RESP 18; TEMP 37.2; O2SAT 98
[2022-07-29] VITALS (7 sets, daily range): BP systolic 162–209; BP diastolic 65–98; PULSE 76–103; RESP 17–20; TEMP 37–37.1; O2SAT 96–98
[2022-07-29] MEDS: Labetalol HCL 100 MG/20 ML VIAL 10 MG IVPUSH (03:44)
[2022-07-29 06:51] LABS: Hematocrit 26.5 % (42.0-52.0); Hemoglobin 8.9 g/dl (14.0-18.0); Mean Corpuscular HGB Conc 33.6 g/dl (31.0-36.0); Mean Corpuscular Hemoglobin 30.2 pg (27.0-33.0); Mean Corpuscular Volume 89.8 fL (80.0-98.0); Mean Platelet Volume 9.9 fL (9.4-12.4); Platelet Count 209 X10*3/uL (160-400); Red Blood Count 2.95 X10*6/uL (4.60-5.80)
[2022-07-29 06:59] LABS: Anion Gap 9 (12-20); Blood Urea Nitrogen 28 mg/dL (9-16); Calcium 9.3 mg/dL (8.4-10.2); Carbon Dioxide 29 mmol/L (22-29); Chloride 108 mmol/L (96-108); Creatinine Clr Calc Pharmacy 46.3; Estimated Glomerular Filt Rate 32; Glucose Fasting 117 mg/dL (60-99); Potassium 4.3 mmol/L (3.3-5.1); Sodium 142 mmol/L (135-145)
[2022-07-29 07:32] LABS: Glucose, Whole Blood 133 mg/dL (60-115)
[2022-07-29] MEDS: Isosorbide Mononitrate 30 MG TAB.ER.24H PO (08:43)
[2022-07-29] MEDS: hydrALAZINE HCl 25 MG TABLET PO ×3 (08:43→21:58)
[2022-07-29] MEDS: Heparin Sodium,Porcine 5,000 UNIT/ML VIAL 5000 UNIT SUBCUT ×2 (08:43→16:32)
--- NOTE | 2022-07-29 08:54 | HO.PM.IMPN ---
Subjective Subjective Date of Service: 07/29/22 Interval History: improving Physical Exam Vital Signs: Vital Signs: Last Vital Signs Temp 98.6 F 07/29/22 08:00 Pulse 80 07/29/22 08:00 Resp 18 07/29/22 08:00 BP 195/82 H 07/29/22 08:00 Pulse Ox 98 07/29/22 08:00 O2 Del Method Nasal Cannula 07/29/22 08:00 O2 Flow Rate 2 07/29/22 08:00 FiO2 30 07/27/22 11:00 BMI result Body Mass Index 35.3 Const:?? General: no acute distress and asa rgic ( arousable a nd answers appropr iately)? Nutrition al Appearance: obe se? Orientation/co nsciousness: saa rgic ( arousable a nd answers appropr iately) and Other orientation findin gs ( oriented) HEENT:?? Head: Yes atraumat ic? Mouth: no othe r ( thrush)? Throa t: No postnasal dr ainage Eyes:?? General: appearanc e normal, both eye s and all related structures? Sclera e: sclerae normal? EOM: EOMs intact bilaterally Neck:?? Neck: Yes supple? Lymphatic: no lymp hadenopathy noted Resp:?? Effort & Inspectio n: normal respirat ory effort and no use of accessory m uscles? Auscultati on: clear to auscu ltation bilaterall y Cardio:?? Rate: bradycardic? Rhythm: regular r hythm? Heart sound s: no gallops, no murmurs and no rub s GI:?? Palpation (GI): So ft to palpation an d Other GI palpati on findings presen t ( nontender) Skin:?? General skin exam: other ( warm)? Ra shes: no rashes Extrem:?? General: No clubbi ng, No cyanosis an d Yes edema ( 1+ b ilateral) Signific ant edema of the r ight upper extremi ty with blisters Objective Data Active Medications Heparin Sodium (Porcine) (Heparin Sodium,Porcine 5,000 Unit/Ml Vial) 5,000 unit SUBCUT Q8H [facility] Last Admin: 07/29/22 08:43 Dose: 5,000 unit Documented By: MARIANO Hydralazine HCl (Hydralazine Hcl 25 Mg Tablet) 25 mg PO TID COUNT INCLUDES [facility]; Protocol Last Admin: 07/29/22 08:43 Dose: 25 mg Documented By: MARIANO Insulin Human Lispro (Insulin Lispro 100 Unit/Ml 3 Ml Vial) 0 unit SUBCUT QIDACHS [facility]CLUD[facility]; Protocol Last Admin: 07/29/22 08:31 Dose: Not Given Documented By: MARIANO Non-Admin Reason: No Insulin Coverage Isosorbide Mononitrate (Isosorbide Mononitrate 30 Mg Tab.Er.24h) 30 mg PO DAILY [facility]CLUD[facility]; Protocol Last Admin: 07/29/22 08:43 Dose: 30 mg Documented By: MARIANO Pharmacy Consult (Consult Rx Perform Med Rec) 1 each MISCELLANE ONCE PRN PRN Reason: Consult order Trazodone HCl (Trazodone Hcl 50 Mg Tablet) 150 mg PO BEDTIME PRN PRN Reason: Insomnia Last Admin: 07/28/22 21:54 Dose: 150 mg Documented By: ULYSSES Labs 07/29/22 06:18 07/29/22 06:18 Labs: Laboratory Results - last 24 hr 07/28/22 07/28/22 07/28/22 11:47 15:27 19:47 MCV MCH MCHC RDW Plt Count MPV Absolute Nucleated RBC Nucleated RBC % (auto) Anion Gap Estim Creat Clear Calc Estimated GFR POC Glucose 198 H 187 H 150 H Fasting Glucose Calcium 07/29/22 07/29/22 07/29/22 06:18 06:18 07:28 MCV 89.8 MCH 30.2 MCHC 33.6 RDW 13.0 Plt Count 209 MPV 9.9 Absolute Nucleated RBC 0.000 Nucleated RBC % (auto) 0.0 Anion Gap 9 L Estim Creat Clear Calc 46.3 Estimated GFR 32 POC Glucose 133 H Fasting Glucose 117 H Calcium 9.3 Microbiology Microbiology Results: Microbiology 07/26/22 17:40 Blood Culture - Preliminary Blood - Venous No growth after 48 hours. Assessment and Plan (1) Acute hypotension: Status: Acute Plan 56-year-old gentleman with underlying obesity, hypertension, diabetes mellitus, CKD stage 3-4,? depression/conversion disorder admitted to icu for symptomatic hyotension and bradycardia complciated by acute hypoxic respiratory failure requiring intubation. now extubated and down to 2L nc. acute hypoxic respiratory failure s/p extubation now on 2L NC continue to wean symptomatic hypotension, bradycardia due to medication, hypovolemia required pressors briefly now hypertensive bps very labile restarted imdur 30mg daily and starting hydralazine 25mg tid nephro following LEDA on CKD IV due to hypotension, hypovolemia now at baseline DM insulin hfpef diuretics on hold depression meds on hold obesity GARCIA weight loss dvt prophylaxis - hep sq full code reason for continued hospitalization:labile bps, needing o2 Time Spent With Patient Time: Total time managing care of this patient today ____ minutes. Quality Stroke Does the patient have a stroke diagnosis?: No VTE Prior VTE?: No VTE Risk Level:: Medical - moderate - high VTE Device Contraindication: N/A - Device Ordered VTE Drug Contraindication: N/A - Med Ordered
[2022-07-29 11:50] LABS: Glucose, Whole Blood 290 mg/dL (60-115)
[2022-07-29] MEDS: Insulin Lispro 100 UNIT/ML 3 ML VIAL SUBCUT ×3 (12:17→21:57)
--- NOTE | 2022-07-29 13:10 | P.PNNP_ITS ---
Subjective Subjective Date of Service: 07/29/22 Interval history: Bp still elevated but improving Physical Exam Vital Signs: Vital Signs: Last Vital Signs Temp 98.6 F 07/29/22 08:00 Pulse 80 07/29/22 08:00 Resp 18 07/29/22 08:00 BP 182/65 H 07/29/22 13:04 Pulse Ox 98 07/29/22 08:00 O2 Del Method Nasal Cannula 07/29/22 08:00 O2 Flow Rate 2 07/29/22 08:00 FiO2 30 07/27/22 11:00 BMI result Body Mass Index 35.3 Const: General: no acute distress, alert, awake and lethargic ( arousable and answers appropriately) Nutritional Appearance: obese Orientation/consciousness: lethargic ( arousable and answers appropriately) and Other orientation findings ( oriented) HEENT: Head: Yes atraumatic Mouth: no other ( thrush) Throat: No postnasal drainage Eyes: General: appearance normal, both eyes and all related structures Scle [place]: sclerae normal EOM: EOMs intact bilaterally Neck: Neck: Yes no lymphadenopathy, Yes trachea midline and Yes supple Lymphatic: no lymphadenopathy noted Resp: Effort & Inspection: normal respiratory effort, no respiratory distress and no use of accessory muscles Auscultation: clear to auscultation bilaterally and crackles ( bibasilar) Cardio: Rate: regular rate and bradycardic Rhythm: regular rhythm Heart sounds: no gallops, no murmurs and no rubs GI: Palpation (GI): Soft to palpation and Other GI palpation findings present ( Nontender) Auscultation: normal bowel sounds Skin: Rashes: no rashes Extrem: General: Yes no pedal edema, No clubbing, No cyanosis and Yes edema ( 1+ bilateral) Objective Data Labs 07/29/22 06:18 07/29/22 06:18 Labs: Laboratory Results - last 24 hr 07/28/22 07/28/22 07/29/22 15:27 19:47 06:18 WBC 10.0 RBC 2.95 L Hgb 8.9 L Hct 26.5 L MCV 89.8 MCH 30.2 MCHC 33.6 RDW 13.0 Plt Count 209 MPV 9.9 Absolute Nucleated RBC 0.000 Nucleated RBC % (auto) 0.0 Sodium Potassium Chloride Carbon Dioxide Anion Gap BUN Creatinine Estim Creat Clear Calc Estimated GFR POC Glucose 187 H 150 H Fasting Glucose Calcium 07/29/22 07/29/22 07/29/22 06:18 07:28 11:47 WBC RBC Hgb Hct MCV MCH MCHC RDW Plt Count MPV Absolute Nucleated RBC Nucleated RBC % (auto) Sodium 142 Potassium 4.3 Chloride 108 Carbon Dioxide 29 Anion Gap 9 L BUN 28 H Creatinine 2.16 H Estim Creat Clear Calc 46.3 Estimated GFR 32 POC Glucose 133 H 290 H Fasting Glucose 117 H Calcium 9.3 Microbiology Microbiology Results: Microbiology 07/26/22 17:40 Blood - Venous Blood Culture - Preliminary No growth after 48 hours. Procedures Date of Service Date of Service: 07/29/22 Assessment & Plan Assessment and plan (1) Acute on chronic kidney failure: Status: Acute (2) Acute hypotension: Status: Acute Plan 56-year-old man with stage IIIB CKD. Recently he had LEDA which has resolved History of hypertension with wide fluctuations in the blood pressure including hypotension on admission. I will review the old records to has undergone any further workup for the labile hypertension. For now keep him on oral hydralazine 3 times a day which can be titrated based on his blood pressure. Resume diuretics and keep him in a negative fluid balance. Monitor serum creatinine. Continue to avoid nephrotoxic agents. Ultrasound of her right upper extremity - No DVT ; PRobably extravasation Continue to hold ADONAY inhibitors and ARB for the time being. Time Spent With Patient Time: Total time managing care of this patient today ____ minutes. Progress Note: Quality Stroke Does the patient have a stroke diagnosis?: No
[2022-07-29 15:48] LABS: Glucose, Whole Blood 190 mg/dL (60-115)
[2022-07-29 19:55] LABS: Glucose, Whole Blood 195 mg/dL (60-115)
[2022-07-29] MEDS: traZODone HCL 50 MG TABLET 150 MG PO (21:57)
[2022-07-30] VITALS (8 sets, daily range): BP systolic 140–210; BP diastolic 60–90; PULSE 80–99; RESP 19–20; TEMP 36.2–37.3; O2SAT 93–97
[2022-07-30] MEDS: Heparin Sodium,Porcine 5,000 UNIT/ML VIAL 5000 UNIT SUBCUT ×3 (00:26→17:10)
[2022-07-30] MEDS: Labetalol HCL 100 MG/20 ML VIAL 10 MG IVPUSH (05:00)
[2022-07-30 07:33] LABS: Glucose, Whole Blood 176 mg/dL (60-115)
[2022-07-30 09:08] LABS: Anion Gap 12 (12-20); Blood Urea Nitrogen 26 mg/dL (9-16); Calcium 9.2 mg/dL (8.4-10.2); Carbon Dioxide 26 mmol/L (22-29); Chloride 107 mmol/L (96-108); Estimated Glomerular Filt Rate 36; Potassium 4.4 mmol/L (3.3-5.1); Sodium 141 mmol/L (135-145)
[2022-07-30 09:32] LABS: Hematocrit 25.4 % (42.0-52.0); Hemoglobin 8.8 g/dl (14.0-18.0); Mean Corpuscular HGB Conc 34.6 g/dl (31.0-36.0); Mean Corpuscular Hemoglobin 30.2 pg (27.0-33.0); Mean Corpuscular Volume 87.3 fL (80.0-98.0); Mean Platelet Volume 10.2 fL (9.4-12.4); Platelet Count 209 X10*3/uL (160-400); Red Blood Count 2.91 X10*6/uL (4.60-5.80); Red Cell Distribution Width 12.7 % (11.0-16.0); White Blood Count 11.5 X10*3/uL (4.8-10.8)
[2022-07-30] MEDS: Insulin Lispro 100 UNIT/ML 3 ML VIAL SUBCUT ×3 (09:40→21:45)
--- NOTE | 2022-07-30 09:46 | P.PNIM_ITS ---
Subjective Subjective Date of Service: 07/30/22 Interval History: no complaints Physical Exam Vital Signs: Vital Signs: Last Vital Signs Temp 99.1 F 07/30/22 07:30 Pulse 90 07/30/22 07:30 Resp 20 07/30/22 07:30 BP 145/90 H 07/30/22 07:30 Pulse Ox 95 07/30/22 07:30 O2 Del Method Room Air 07/30/22 07:30 O2 Flow Rate 2 07/29/22 13:04 FiO2 30 07/27/22 11:00 BMI result Body Mass Index 35.3 Const: General: no acute distress, alert, awake and lethargic ( arousable and answers appropriately) Nutritional Appearance: obese Orientation/consciousness: lethargic ( arousable and answers appropriately) and Other orientation findings ( oriented) HEENT: Head: Yes atraumatic Mouth: no other ( thrush) Throat: No postnasal drainage Eyes: General: appearance normal, both eyes and all related structures Sclerae: sclerae normal EOM: EOMs intact bilaterally Neck: Neck: Yes no lymphadenopathy, Yes trachea midline and Yes supple Lymphatic: no lymphadenopathy noted Resp: Effort & Inspection: normal respiratory effort, no respiratory distress and no use of accessory muscles Auscultation: clear to auscultation bilaterally and crackles ( bibasilar) Cardio: Rate: regular rate and bradycardic Rhythm: regular rhythm Heart sounds: no gallops, no murmurs and no rubs GI: Palpation (GI): Soft to palpation and Other GI palpation findings present ( Nontender) Auscultation: normal bowel sounds Skin: Rashes: no rashes Extrem: General: Yes no pedal edema, No clubbing, No cyanosis and Yes edema ( 1+ bilateral) Objective Data Active Medications Heparin Sodium (Porcine) (Heparin Sodium,Porcine 5,000 Unit/Ml Vial) 5,000 unit SUBCUT Q8H [facility] Last Admin: 07/30/22 00:26 Dose: 5,000 unit Documented By: ANTOIC Hydralazine HCl (Hydralazine Hcl 50 Mg Tablet) 50 mg PO TID [facility]; Protocol Hydralazine HCl (Hydralazine Hcl 50 Mg Tablet) 50 mg PO QID PRN; Protocol PRN Reason: SBP>190 Insulin Human Lispro (Insulin Lispro 100 Unit/Ml 3 Ml Vial) 0 unit SUBCUT QIDACHS [facility]; Protocol Last Admin: 07/29/22 21:57 Dose: 2 unit Documented By: SCOTTY Isosorbide Mononitrate (Isosorbide Mononitrate 30 Mg Tab.Er.24h) 30 mg PO DAILY [facility]; Protocol Last Admin: 07/29/22 08:43 Dose: 30 mg Documented By: MARIANO Pharmacy Consult (Consult Rx Perform Med Rec) 1 each MISCELLANE ONCE PRN PRN Reason: Consult order Trazodone HCl (Trazodone Hcl 50 Mg Tablet) 150 mg PO BEDTIME PRN PRN Reason: Insomnia Last Admin: 07/29/22 21:57 Dose: 150 mg Documented By: SCOTTY Labs 07/30/22 08:45 07/30/22 07:32 Labs: Laboratory Results - last 24 hr 07/29/22 07/29/22 07/29/22 11:47 15:21 19:26 MCV MCH MCHC RDW Plt Count MPV Absolute Nucleated RBC Nucleated RBC % (auto) Anion Gap Estim Creat Clear Calc Estimated GFR POC Glucose 290 H 190 H 195 H Calcium 07/30/22 07/30/22 07/30/22 07:30 07:32 08:45 MCV 87.3 MCH 30.2 MCHC 34.6 RDW 12.7 Plt Count 209 MPV 10.2 Absolute Nucleated RBC 0.000 Nucleated RBC % (auto) 0.0 Anion Gap 12 Estim Creat Clear Calc 51.0 Estimated GFR 36 POC Glucose 176 H Calcium 9.2 Assessment and Plan (1) Acute hypotension: Status: Acute Plan 56-year-old gentleman with underlying obesity, hypertension, diabetes mellitus, CKD stage 3-4,? depression/conversion disorder admitted to icu for symptomatic hyotension and bradycardia complciated by acute hypoxic respiratory failure requiring intubation. now extubated and down to 2L nc. acute hypoxic respiratory failure s/p extubation now on 2L NC continue to wean symptomatic hypotension, bradycardia due to medication, hypovolemia required pressors briefly now hypertensive bps very labile restarted imdur 30mg daily titrating up hydralazine to 50mg tid nephro following LEDA on CKD IV due to hypotension, hypovolemia now at baseline DM insulin hfpef diuretics on hold depression meds on hold obesity GARCIA weight loss dvt prophylaxis - hep sq full code reason for continued hospitalization:labile bps Time Spent With Patient Time: Total time managing care of this patient today ____ minutes. Quality Stroke Does the patient have a stroke diagnosis?: No VTE Prior VTE?: No VTE Risk Level:: Medical - moderate - high VTE Device Contraindication: N/A - Device Ordered VTE Drug Contraindication: N/A - Med Ordered
--- NOTE | 2022-07-30 10:20 | MHC.CM.PN ---
Per ROUNDS discussion, BP meds are still being titrated and Patient is not yet medically cleared for dc. Home/resume services is the goal and CM will continue to follow.
[2022-07-30] MEDS: Isosorbide Mononitrate 30 MG TAB.ER.24H PO (10:38)
[2022-07-30] MEDS: hydrALAZINE HCl 50 MG TABLET PO ×4 (10:38→21:45)
--- NOTE | 2022-07-30 10:41 | PM.PNNEP ---
Subjective Subjective Date of Service: 08/01/22 Interval history: no complaints Physical Exam Vital Signs: Vital Signs: Last Vital Signs Temp 99.1 F 07/30/22 07:30 Pulse 90 07/30/22 07:30 Resp 20 07/30/22 07:30 BP 145/90 H 07/30/22 07:30 Pulse Ox 95 07/30/22 07:30 O2 Del Method Room Air 07/30/22 07:30 O2 Flow Rate 2 07/29/22 13:04 FiO2 30 07/27/22 11:00 BMI result Body Mass Index 35.3 Const: General: no acute distress, alert, awake and lethargic ( arousable and answers appropriately) Nutritional Appearance: obese Orientation/consciousness: lethargic ( arousable and answers appropriately) and Other orientation findings ( oriented) HEENT: Head: Yes atraumatic Mouth: no other ( thrush) Throat: No postnasal drainage Eyes: General: appearance normal, both eyes and all related structures Sclerae: sclerae normal EOM: EOMs intact bilaterally Neck: Neck: Yes no lymphadenopathy, Yes trachea midline and Yes supple Lymphatic: no lymphadenopathy noted Resp: Effort & Inspection: normal respiratory effort, no respiratory distress and no use of accessory muscles Auscultation: clear to auscultation bilaterally and crackles ( bibasilar) Cardio: Rate: regular rate and bradycardic Rhythm: regular rhythm Heart sounds: no gallops, no murmurs and no rubs GI: Palpation (GI): Soft to palpation and Other GI palpation findings present ( Nontender) Auscultation: normal bowel sounds Skin: Rashes: no rashes Extrem: General: Yes no pedal edema, No clubbing, No cyanosis and Yes edema ( 1+ bilateral) Objective Data Labs 07/30/22 08:45 07/30/22 07:32 Labs: Laboratory Results - last 24 hr 07/29/22 07/29/22 07/29/22 11:47 15:21 19:26 WBC RBC Hgb Hct MCV MCH MCHC RDW Plt Count MPV Absolute Nucleated RBC Nucleated RBC % (auto) Sodium Potassium Chloride Carbon Dioxide Anion Gap BUN Creatinine Estim Creat Clear Calc Estimated GFR POC Glucose 290 H 190 H 195 H Calcium 07/30/22 07/30/22 07/30/22 07:30 07:32 08:45 WBC 11.5 H RBC 2.91 L Hgb 8.8 L Hct 25.4 L MCV 87.3 MCH 30.2 MCHC 34.6 RDW 12.7 Plt Count 209 MPV 10.2 Absolute Nucleated RBC 0.000 Nucleated RBC % (auto) 0.0 Sodium 141 Potassium 4.4 Chloride 107 Carbon Dioxide 26 Anion Gap 12 BUN 26 H Creatinine 1.96 H Estim Creat Clear Calc 51.0 Estimated GFR 36 POC Glucose 176 H Calcium 9.2 Microbiology Microbiology Results: Microbiology 07/26/22 17:40 Blood - Venous Blood Culture - Preliminary No growth after 48 hours. Procedures Date of Service Date of Service: 07/30/22 Assessment & Plan Assessment and plan (1) Acute on chronic kidney failure: Status: Acute (2) Acute hypotension: Status: Acute Plan 56-year-old man with stage IIIB CKD. Recently he had LEDA which has resolved History of hypertension with wide fluctuations in the blood pressure including hypotension on admission. keep him on oral hydralazine 3 times a day which can be titrated based on his blood pressure. Resume diuretics and keep him in a negative fluid balance. Monitor serum creatinine. Thai is back to baseline. Continue to avoid nephrotoxic agents. Ultrasound of her right upper extremity - No DVT ; PRobably extravasation - edema has subsided. Continue to hold ADONAY inhibitors and ARB for the time being. Time Spent With Patient Time: Total time managing care of this patient today ____ minutes. Progress Note: Quality Stroke Does the patient have a stroke diagnosis?: No
[2022-07-30 11:55] LABS: Glucose Fasting 175 mg/dL (60-99)
[2022-07-30 11:58] LABS: Glucose, Whole Blood 152 mg/dL (60-115)
[2022-07-30 15:57] LABS: Glucose, Whole Blood 174 mg/dL (60-115)
[2022-07-30] MEDS: Acetaminophen 325 MG TABLET 650 MG PO (17:44)
[2022-07-30 20:26] LABS: Glucose, Whole Blood 253 mg/dL (60-115)
[2022-07-31] VITALS (8 sets, daily range): BP systolic 150–200; BP diastolic 65–98; PULSE 87–93; RESP 18–93; TEMP 36.7–37.1; O2SAT 95–98
[2022-07-31] MEDS: traZODone HCL 50 MG TABLET 150 MG PO ×2 (00:04→23:00)
[2022-07-31] MEDS: Heparin Sodium,Porcine 5,000 UNIT/ML VIAL 5000 UNIT SUBCUT ×4 (00:04→23:01)
[2022-07-31] MEDS: Labetalol HCL 100 MG/20 ML VIAL 10 MG IVPUSH (01:29)
[2022-07-31 07:47] LABS: Glucose, Whole Blood 186 mg/dL (60-115)
[2022-07-31] MEDS: Insulin Lispro 100 UNIT/ML 3 ML VIAL SUBCUT ×4 (07:48→19:57)
[2022-07-31] MEDS: hydrALAZINE HCl 50 MG TABLET PO ×3 (07:48→19:56)
[2022-07-31] MEDS: Isosorbide Mononitrate 30 MG TAB.ER.24H PO (07:48)
--- NOTE | 2022-07-31 09:48 | HO.PM.IMPN ---
Subjective Subjective Date of Service: 07/31/22 Interval History: no complaints Physical Exam Vital Signs: Vital Signs: Last Vital Signs Temp 98.6 F 07/31/22 07:24 Pulse 92 07/31/22 07:24 Resp 93 H 07/31/22 07:24 BP 200/98 H 07/31/22 07:52 Pulse Ox 95 07/31/22 07:24 O2 Del Method Room Air 07/31/22 07:24 O2 Flow Rate 2 07/29/22 13:04 FiO2 30 07/27/22 11:00 BMI result Body Mass Index 35.3 Const: General: no acute distress, alert, awake and lethargic ( arousable and answers appropriately) Nutritional Appearance: obese Orientation/consciousness: lethargic ( arousable and answers appropriately) and Other orientation findings ( oriented) HEENT: Head: Yes atraumatic Mouth: no other ( thrush) Throat: No postnasal drainage Eyes: General: appearance normal, both eyes and all related structures Sclerae: sclerae normal EOM: EOMs intact bilaterally Neck: Neck: Yes no lymphadenopathy, Yes trachea midline and Yes supple Lymphatic: no lymphadenopathy noted Resp: Effort & Inspection: normal respiratory effort, no respiratory distress and no use of accessory muscles Auscultation: clear to auscultation bilaterally and crackles ( bibasilar) Cardio: Rate: regular rate and bradycardic Rhythm: regular rhythm Heart sounds: no gallops, no murmurs and no rubs GI: Palpation (GI): Soft to palpation and Other GI palpation findings present ( Nontender) Auscultation: normal bowel sounds Skin: Rashes: no rashes Extrem: General: Yes no pedal edema, No clubbing, No cyanosis and Yes edema ( 1+ bilateral) Objective Data Active Medications Acetaminophen (Acetaminophen 325 Mg Tablet) 650 mg PO Q6H PRN PRN Reason: Pain, Moderate(Pain Scale 4-7) Last Admin: 07/30/22 17:44 Dose: 650 mg Documented By: NILTON Heparin Sodium (Porcine) (Heparin Sodium,Porcine 5,000 Unit/Ml Vial) 5,000 unit SUBCUT Q8H [facility] Last Admin: 07/31/22 07:47 Dose: 5,000 unit Documented By: COREY Hydralazine HCl (Hydralazine Hcl 50 Mg Tablet) 50 mg PO TID [facility]; Protocol Last Admin: 07/31/22 07:48 Dose: 50 mg Documented By: COREY Hydralazine HCl (Hydralazine Hcl 50 Mg Tablet) 50 mg PO QID PRN; Protocol PRN Reason: SBP>190 Last Admin: 07/30/22 19:25 Dose: 50 mg Documented By: COLTON Insulin Human Lispro (Insulin Lispro 100 Unit/Ml 3 Ml Vial) 0 unit SUBCUT QIDACHS [facility]; Protocol Last Admin: 07/31/22 07:48 Dose: 2 unit Documented By: COREY Isosorbide Mononitrate (Isosorbide Mononitrate 30 Mg Tab.Er.24h) 30 mg PO DAILY [facility]; Protocol Last Admin: 07/31/22 07:48 Dose: 30 mg Documented By: COREY Nifedipine (Nifedipine Er 60 Mg Tab.Er.24) 60 mg PO BEDTIME [facility]; Protocol Pharmacy Consult (Consult Rx Perform Med Rec) 1 each MISCELLANE ONCE PRN PRN Reason: Consult order Trazodone HCl (Trazodone Hcl 50 Mg Tablet) 150 mg PO BEDTIME PRN PRN Reason: Insomnia Last Admin: 07/31/22 00:04 Dose: 150 mg Documented By: COLTON Labs 07/30/22 08:45 07/30/22 07:32 Labs: Laboratory Results - last 24 hr 07/30/22 07/30/22 07/30/22 07:32 11:55 15:37 POC Glucose 152 H 174 H Fasting Glucose 175 H 07/30/22 07/31/22 20:11 07:29 POC Glucose 253 H 186 H Fasting Glucose Assessment and Plan (1) Acute hypotension: Status: Acute Plan 56-year-old gentleman with underlying obesity, hypertension, diabetes mellitus, CKD stage 3-4,? depression/conversion disorder admitted to icu for symptomatic hyotension and bradycardia complciated by acute hypoxic respiratory failure requiring intubation. now extubated and down to 2L nc. acute hypoxic respiratory failure s/p extubation resolved symptomatic hypotension, bradycardia due to medication, hypovolemia required pressors briefly now hypertensive bps very labile restarted imdur 30mg daily titrated up hydralazine to 50mg tid, also with hydralazine 50mg prn will add nifedipine ER 60mg at bedtime nephro following LEDA on CKD IV due to hypotension, hypovolemia now at baseline DM insulin hfpef diuretics on hold depression meds on hold obesity GARCIA weight loss dvt prophylaxis - hep sq full code reason for continued hospitalization:labile bps Time Spent With Patient Time: Total time managing care of this patient today ____ minutes. Quality Stroke Does the patient have a stroke diagnosis?: No VTE Prior VTE?: No VTE Risk Level:: Medical - moderate - high VTE Device Contraindication: N/A - Device Ordered VTE Drug Contraindication: N/A - Med Ordered
--- NOTE | 2022-07-31 10:58 | PM.PNNEP ---
Subjective Subjective Date of Service: 08/01/22 Interval history: no complaints Physical Exam Vital Signs: Vital Signs: Last Vital Signs Temp 98.6 F 07/31/22 10:32 Pulse 93 07/31/22 10:32 Resp 20 07/31/22 10:32 BP 180/70 H 07/31/22 10:32 Pulse Ox 96 07/31/22 10:32 O2 Del Method Room Air 07/31/22 10:32 O2 Flow Rate 2 07/29/22 13:04 FiO2 30 07/27/22 11:00 BMI result Body Mass Index 35.3 Const: General: no acute distress, alert, awake and lethargic ( arousable and answers appropriately) Nutritional Appearance: obese Orientation/consciousness: lethargic ( arousable and answers appropriately) and Other orientation findings ( oriented) HEENT: Head: Yes atraumatic Mouth: no other ( thrush) Throat: No postnasal drainage Eyes: General: appearance normal, both eyes and all related structures Sclerae: sclerae normal EOM: EOMs intact bilaterally Neck: Neck: Yes no lymphadenopathy, Yes trachea midline and Yes supple Lymphatic: no lymphadenopathy noted Resp: Effort & Inspection: normal respiratory effort, no respiratory distress and no use of accessory muscles Auscultation: clear to auscultation bilaterally and crackles ( bibasilar) Cardio: Rate: regular rate and bradycardic Rhythm: regular rhythm Heart sounds: no gallops, no murmurs and no rubs GI: Palpation (GI): Soft to palpation and Other GI palpation findings present ( Nontender) Auscultation: normal bowel sounds Skin: Rashes: no rashes Extrem: General: Yes no pedal edema, No clubbing, No cyanosis and Yes edema ( 1+ bilateral) Objective Data Labs 07/30/22 08:45 07/30/22 07:32 Labs: Laboratory Results - last 24 hr 07/30/22 07/30/22 07/30/22 07:32 11:55 15:37 POC Glucose 152 H 174 H Fasting Glucose 175 H 07/30/22 07/31/22 20:11 07:29 POC Glucose 253 H 186 H Fasting Glucose Microbiology Microbiology Results: Microbiology 07/26/22 17:40 Blood - Venous Blood Culture - Preliminary No growth after 48 hours. Procedures Date of Service Date of Service: 07/31/22 Assessment & Plan Assessment and plan (1) Acute on chronic kidney failure: Status: Acute (2) Acute hypotension: Status: Acute Plan 56-year-old man with stage IIIB CKD. Recently he had LEDA which has resolved History of hypertension with wide fluctuations in the blood pressure including hypotension on admission. keep him on oral hydralazine 3 times a day which can be titrated based on his blood pressure. Agree with adding Nifedipine 60 gm q PM Titrate dose gradually as need Resume diuretics and keep him in a negative fluid balance. Monitor serum creatinine. Creatinine is back to baseline. Continue to avoid nephrotoxic agents. Ultrasound of her right upper extremity - No DVT ; PRobably extravasation - edema has subsided. Continue to hold ADONAY inhibitors and ARB for the time being. Time Spent With Patient Time: Total time managing care of this patient today ____ minutes. Progress Note: Quality Stroke Does the patient have a stroke diagnosis?: No
[2022-07-31 11:17] LABS: Glucose, Whole Blood 226 mg/dL (60-115)
[2022-07-31] MEDS: Furosemide 40 MG TABLET PO (11:37)
[2022-07-31] MEDS: Acetaminophen 325 MG TABLET 650 MG PO ×2 (11:40→23:58)
--- NOTE | 2022-07-31 13:47 | PM.CNGS ---
History of Present Illness Consult details Consult date: 07/31/22 Narrative: The patient is seen due to blisters on his right arm related to tape and IVs. The patient has had a prolonged hospitalization and is a somewhat poor historian but he denies any pain or purulence drainage. Review of Systems Review of Systems: Yes all other systems are reviewed and are negative Constitutional: Constitutional: Reports as per [facility] Past Medical History Medical History Acute hyponatremia Anxiety Chronic hyperglycemia CKD (chronic kidney disease) CKD (chronic kidney disease) CKD (chronic kidney disease) stage 3, GFR 30-59 ml/min CKD (chronic kidney disease) stage 4, GFR 15-29 ml/min Depression Diabetes Diabetes mellitus with coincident hypertension Diabetes type 2, uncontrolled Diabetic nephropathy associated with type 2 diabetes mellitus Diabetic neuropathy associated with type 2 diabetes mellitus Dyslipidemia Essential hypertension GERD (gastroesophageal reflux disease) Hepatitis High cholesterol Hypercalcemia Hyperlipidemia Hypertension detention (current) use of insulin Metabolic acidosis Neuropathy New onset of congestive heart failure Obesity Obesity (BMI 30-39.9) Severe depression Sleep apnea Type 2 diabetes mellitus with obesity Vitamin D deficiency Family History Family History Father Diabetes Mother No problems noted. Surgical History Surgical History H/O colonoscopy History of esophagogastroduodenoscopy (EGD) Hx of arthroscopy of knee Hx of arthroscopy of right knee Social History Social History Household Members: Unknown / Unable to assess Household Members Other:: SISTER Housing: Apartment Do you presently have visiting nurse or other home services: Yes Unable to assess alcohol history related to: Unable to respond and Unknown Alcohol intake: never Patient Tobacco Use Status: Never used Tobacco e-Cigarette/Vaping Use: Never Used Second Hand Smoke Exposure: Yes (HISTORY OF SECOND HAND SMOKE EXPOSURE) Advance Directives Date on File: 05/05/20 service: No Current occupational status: disabled Current occupation: right handed Cognitive needs: No Hearing needs: No Vision needs: No Meds Allergies Allergy/AdvReac Type Severity Reaction Status Date / Time cephalexin [From KEFLEX] Allergy Mild ITCHY Verified 05/31/22 14:14 THROAT lisinopril [LISINOPRIL] Allergy Unknown SWELLING Verified 05/31/22 14:14 COUGH Active Medications: Current Medications Acetaminophen (Acetaminophen 325 Mg Tablet) 650 mg PO Q6H PRN PRN Reason: Pain, Moderate(Pain Scale 4-7) Last Admin: 07/31/22 11:40 Dose: 650 mg Furosemide (Furosemide 40 Mg Tablet) 40 mg PO DAILY [facility]; Protocol Last Admin: 07/31/22 11:37 Dose: 40 mg Heparin Sodium (Porcine) (Heparin Sodium,Porcine 5,000 Unit/Ml Vial) 5,000 unit SUBCUT Q8H [facility] Last Admin: 07/31/22 07:47 Dose: 5,000 unit Hydralazine HCl (Hydralazine Hcl 50 Mg Tablet) 50 mg PO TID [facility]; Protocol Last Admin: 07/31/22 07:48 Dose: 50 mg Hydralazine HCl (Hydralazine Hcl 50 Mg Tablet) 50 mg PO QID PRN; Protocol PRN Reason: SBP>190 Last Admin: 07/30/22 19:25 Dose: 50 mg Insulin Human Lispro (Insulin Lispro 100 Unit/Ml 3 Ml Vial) 0 unit SUBCUT QIDACHS [facility]; Protocol Last Admin: 07/31/22 11:37 Dose: 4 unit Isosorbide Mononitrate (Isosorbide Mononitrate 30 Mg Tab.Er.24h) 30 mg PO DAILY [facility]; Protocol Last Admin: 07/31/22 07:48 Dose: 30 mg Nifedipine (Nifedipine Er 60 Mg Tab.Er.24) 60 mg PO BEDTIME [facility]; Protocol Pharmacy Consult (Consult Rx Perform Med Rec) 1 each MISCELLANE ONCE PRN PRN Reason: Consult order Trazodone HCl (Trazodone Hcl 50 Mg Tablet) 150 mg PO BEDTIME PRN PRN Reason: Insomnia Last Admin: 07/31/22 00:04 Dose: 150 mg Home Medications Medication Instructions Recorded Confirmed Last Taken Type venlafaxine 150 mg 150 mg PO DAILY 10/30/21 07/26/22 07/21/22 09:00 History capsule,extended release 24 hr multivitamin with folic acid 400 1 tab PO DAILY 03/06/22 07/26/22 07/21/22 09:00 History mcg tablet (Tab-A-George) pen needle, diabetic 32 gauge x #50 ea 03/06/22 06/02/22 Unknown History 06/14 (Ultracare Pen Needle) bupropion HCl 150 mg 24 hr tablet, 150 mg PO DAILY 05/16/22 07/26/22 07/21/22 09:00 History extended release insulin aspart U-100 100 unit/mL 14 unit subcut TIDAC 05/16/22 07/26/22 07/21/22 18:00 History (3 mL) subcutaneous pen (Novolog FlexPen U-100 Insulin aspart) insulin glargine U-300 conc 300 70 unit subcut DAILY 05/16/22 07/26/22 07/21/22 09:00 History unit/mL (3 mL) subcutaneous pen (Toujeo Max U-300 SoloStar) meclizine 25 mg tablet 25 mg PO Q6H PRN Dizziness 05/16/22 07/26/22 06/18/22 History trazodone 150 mg tablet 150 mg PO BEDTIME 05/16/22 07/26/22 07/20/22 History Physical Exam Vital Signs: Vital Signs: Last Vital Signs Temp 98.6 F 07/31/22 10:32 Pulse 93 07/31/22 10:32 Resp 20 07/31/22 10:32 BP 180/70 H 07/31/22 10:32 Pulse Ox 96 07/31/22 10:32 O2 Del Method Room Air 07/31/22 10:32 O2 Flow Rate 2 07/29/22 13:04 FiO2 30 07/27/22 11:00 BMI result Body Mass Index 35.3 On exam, he is nontoxic Sclera anicteric He is in no acute respiratory distress His abdomen is obese and soft with no tenderness On his right forearm distal to the antecubital fossa and medial on the ulna, there is a 4 x 5 cm bullae with no purulence or erythema. Other additional small blisters are noted in the antecubital fossa and volar forearm. There is no erythema, purulence, fluctuance. The forearm and hand are nontender and neurovascularly intact Results Labs 07/30/22 08:45 07/30/22 07:32 Labs: Abnormal lab results 07/30/22 07/30/22 07/31/22 Range/Units 15:37 20:11 07:29 POC Glucose 174 H 253 H 186 H (60-115) mg/dL 07/31/22 Range/Units 10:58 POC Glucose 226 H (60-115) mg/dL Urine 07/26/22 Range/Units 17:58 Urine Color Yellow Urine Appearance Clear Urine pH 5.5 (5.0-9.0) Ur Specific [place] <= 1.005 (1.005-1.025) Urine Protein 100 (2+) H (Neg-Trace) mg/dL Urine Glucose (UA) Negative (Negative) mg/dL All other labs normal. Assessment and Plan (1) Acute bullous dermatitis: Status: Acute (2) (HFpEF) heart failure with preserved ejection fraction: Status: Acute (3) Gallstones: Status: Acute (4) Essential hypertension: Status: Acute (5) Obesity: Status: Acute (6) Type 2 diabetes mellitus with obesity: Status: Acute (7) Hyperlipidemia: Status: Acute Plan I would recommend avoid using tape in this area. There is no evidence of infection so I would leave the bulla intact at this time. If they rupture, they can be unroofed at the bedside and a nonstick dressing applied. Time Spent With Patient Time: Total time managing care of this patient today ____ minutes. Procedures Date of Service Date of Service: 07/31/22
[2022-07-31 14:41] LABS: Estimated Average Glucose 120 mg/dL; Hemoglobin A1c % 5.8 %
[2022-07-31 15:47] LABS: Glucose, Whole Blood 255 mg/dL (60-115)
[2022-07-31] MEDS: NIFEdipine ER 60 MG TAB.ER.24 PO (19:57)
[2022-07-31 20:08] LABS: Glucose, Whole Blood 189 mg/dL (60-115)
[2022-08-01] VITALS (8 sets, daily range): BP systolic 140–180; BP diastolic 50–85; PULSE 86–107; RESP 15–20; TEMP 36.7–37.1; O2SAT 95–98
[2022-08-01 07:27] LABS: Glucose, Whole Blood 191 mg/dL (60-115)
[2022-08-01] MEDS: Isosorbide Mononitrate 30 MG TAB.ER.24H PO (08:06)
[2022-08-01] MEDS: Heparin Sodium,Porcine 5,000 UNIT/ML VIAL 5000 UNIT SUBCUT ×2 (08:06→15:45)
[2022-08-01] MEDS: Insulin Lispro 100 UNIT/ML 3 ML VIAL SUBCUT ×4 (08:06→20:38)
[2022-08-01] MEDS: Furosemide 40 MG TABLET PO (08:07)
[2022-08-01] MEDS: hydrALAZINE HCl 50 MG TABLET PO ×3 (08:07→20:37)
--- NOTE | 2022-08-01 10:17 | PM.PNNEP ---
Subjective Subjective Date of Service: 08/11/22 Interval history: no complaints right upper extremity edema has subsided. Continues to have blisters on the right upper extremity. All blood pressure readings noted. Physical Exam Vital Signs: Vital Signs: Last Vital Signs Temp 98.2 F 08/01/22 07:47 Pulse 102 H 08/01/22 07:47 Resp 18 08/01/22 07:47 BP 140/80 H 08/01/22 07:47 Pulse Ox 95 08/01/22 07:47 O2 Del Method Room Air 08/01/22 07:47 O2 Flow Rate 2 07/29/22 13:04 FiO2 30 07/27/22 11:00 BMI result Body Mass Index 35.3 Const: General: no acute distress, alert, awake and lethargic ( arousable and answers appropriately) Nutritional Appearance: obese Orientation/consciousness: lethargic ( arousable and answers appropriately) and Other orientation findings ( oriented) HEENT: Head: Yes atraumatic Mouth: no other ( thrush) Throat: No postnasal drainage Eyes: General: appearance normal, both eyes and all related structures Sclerae: sclerae normal EOM: EOMs intact bilaterally Neck: Neck: Yes no lymphadenopathy, Yes trachea midline and Yes supple Lymphatic: no lymphadenopathy noted Resp: Effort & Inspection: normal respiratory effort, no respiratory distress and no use of accessory muscles Auscultation: clear to auscultation bilaterally and crackles ( bibasilar) Cardio: Rate: regular rate and bradycardic Rhythm: regular rhythm Heart sounds: no gallops, no murmurs and no rubs GI: Palpation (GI): Soft to palpation and Other GI palpation findings present ( Nontender) Auscultation: normal bowel sounds Skin: Rashes: no rashes Extrem: General: Yes no pedal edema, No clubbing, No cyanosis and Yes edema ( 1+ bilateral) Objective Data Labs 07/30/22 08:45 07/30/22 07:32 Labs: Laboratory Results - last 24 hr 07/31/22 07/31/22 07/31/22 10:58 14:22 15:33 POC Glucose 226 H 255 H Estimat Average Glucose 120 Hemoglobin A1c % 5.8 07/31/22 08/01/22 19:52 07:24 POC Glucose 189 H 191 H Estimat Average Glucose Hemoglobin A1c % Microbiology Microbiology Results: Microbiology 07/26/22 17:40 Blood - Venous Blood Culture - Final No growth after 5 days. Procedures Date of Service Date of Service: 08/01/22 Assessment & Plan Assessment and plan (1) Acute on chronic kidney failure: Status: Acute (2) Acute hypotension: Status: Acute Plan 56-year-old man with stage IIIB CKD. Recently he had LEDA which has resolved History of hypertension with wide fluctuations in the blood pressure including hypotension on admission. keep him on oral hydralazine 3 times a day which can be titrated based on his blood pressure. Agree with adding Nifedipine 60 gm q PM Would not increase dose due to reflex tachycardia. Agree with adding beta ella/labetalol to optimize blood pressure and heart rate. Await Cardiology input as well. keep him in a negative fluid balance. Monitor serum creatinine. Creatinine is back to baseline. Continue to avoid nephrotoxic agents. Ultrasound of her right upper extremity - No DVT ; PRobably extravasation - edema has subsided. Continue to hold ADONAY inhibitors and ARB for the time being. Time Spent With Patient Time: Total time managing care of this patient today ____ minutes. Progress Note: Quality Stroke Does the patient have a stroke diagnosis?: No
--- NOTE | 2022-08-01 10:28 | MHC.CM.PN ---
Per ROUNDS discussion, BP is still trying to be controlled and Patient is not yet medically cleared for dc. Home/resume vna is the goal and CM will continue to follow.
--- NOTE | 2022-08-01 10:45 | PM.PNCARD ---
Subjective Subjective Date of Service: 08/01/22 Principal diagnosis: junctional bradycardia, labile blood pressure. Interval history: Patient presented with significant hypotension and junctional bradycardia suggestive sinoatrial node dysfunction on labetalol therapy. Was admitted to ICU with respiratory failure requiring intubation vasopressor therapy. Since then his medications have been adjusted and held and he has had rebound hypertension. He is most responded to labetalol therapy. Currently having sinus tachycardia 102 beats per minute with elevated blood pressure. Review of Systems Constitutional: Reports no additional constitutional complaints Physical Exam Vital Signs: Last Vital Signs Temp 98.2 F 08/01/22 07:47 Pulse 102 H 08/01/22 07:47 Resp 18 08/01/22 07:47 BP 140/80 H 08/01/22 07:47 Pulse Ox 95 08/01/22 07:47 O2 Del Method Room Air 08/01/22 07:47 O2 Flow Rate 2 07/29/22 13:04 FiO2 30 07/27/22 11:00 BMI result Body Mass Index 35.3 Const General: cooperative, comfortable, no acute distress, alert and awake Nutritional Appearance: obese Orientation/consciousness: patient oriented x3 Neck Neck: Yes trachea midline, Yes supple and Yes no JVD Resp Effort & Inspection: normal respiratory effort Auscultation: clear to auscultation bilaterally Cardio Jugular venous distension: no JVD Palpation: normal PMI Rate: regular rate Rhythm: regular rhythm Heart sounds: S1 normal heart sound present, S2 normal heart sound present, no click, no gallops and no murmurs GI Auscultation: normal bowel sounds Skin General skin exam: no rashes or lesions noted Neuro General: patient oriented x3 and no focal motor deficits Objective Labs and Meds 07/30/22 08:45 07/30/22 07:32 Lab results: Laboratory Results - last 24 hr 07/31/22 07/31/22 07/31/22 10:58 14:22 15:33 POC Glucose 226 H 255 H Estimat Average Glucose 120 Hemoglobin A1c % 5.8 07/31/22 08/01/22 19:52 07:24 POC Glucose 189 H 191 H Estimat Average Glucose Hemoglobin A1c % Progress Note: A&P Assessment and plan (1) Labile hypertension: Status: Acute Assessment and Plan: patient has very complicated history with significantly labile blood pressure with admission with significant hypotension and bradycardia probably related to medical therapy with underlying autonomic dysfunction related to his diabetes. He has chronic kidney disease and has history of heart failure preserved ejection fraction requiring diuretic therapy. However this appears that there is significant autonomic component to his symptoms. He has responded most to labetalol therapy although with his significant sinoatrial gloria depression with labetalol therapy this could be used in conjunction with the pacemaker placement. Discussed with him the need for pacemaker. He was a little overwhelmed and concerned about it. I discussed in details about the need for pacemaker in the reason that we would use it and the type of procedure including risk, benefits and alternatives. He understood and he wants to think about it and discussed with his kids which is reasonable. If he agrees, keep NPO past midnight and consult Dr. Jason. Will continue to follow with you Time Spent With Patient Time: Total time managing care of this patient today ____ minutes. Progress Note: Quality Stroke Does the patient have a stroke diagnosis?: No Procedures Date of Service Date of Service: 08/01/22
[2022-08-01 11:42] LABS: Glucose, Whole Blood 244 mg/dL (60-115)
--- NOTE | 2022-08-01 12:21 | HO.PM.IMPN ---
Subjective Subjective Date of Service: 08/01/22 Interval History: Seen and evaluated this morning Feels better overall but reports generalized weakness No more episodes of bradycardia BP raising up No other overnight events Review of Systems Review of Systems: Yes all other systems are reviewed and are negative Physical Exam Vital Signs: Vital Signs: Last Vital Signs Temp 98.2 F 08/01/22 11:19 Pulse 94 08/01/22 11:19 Resp 20 08/01/22 11:19 BP 180/60 H 08/01/22 11:19 Pulse Ox 97 08/01/22 11:19 O2 Del Method Room Air 08/01/22 11:19 O2 Flow Rate 2 07/29/22 13:04 FiO2 30 07/27/22 11:00 BMI result Body Mass Index 35.3 Const: Other: Constitutional : Awake, interactive, not in distress Neck : Normal inspection, Supple Cardiovascular : RRR, no JVP, no lower extremity edema Respiratory : good bilateral air entry,? no crackles, wheezes or rhonchi Gastrointestinal:? soft, lax, Normal bowel sounds, Non tender Skin : Warm, Dry, right elbow bulla shrinking in size with no erythema or drainage Neurological : Alert & oriented x3, No focal deficit Objective Data Active Medications Acetaminophen (Acetaminophen 325 Mg Tablet) 650 mg PO Q6H PRN PRN Reason: Pain, Moderate(Pain Scale 4-6) Last Admin: 07/31/22 23:58 Dose: 650 mg Documented By: COLTON Furosemide (Furosemide 40 Mg Tablet) 40 mg PO DAILY [facility]; Protocol Last Admin: 08/01/22 08:07 Dose: 40 mg Documented By: KYLIE Heparin Sodium (Porcine) (Heparin Sodium,Porcine 5,000 Unit/Ml Vial) 5,000 unit SUBCUT Q8H [facility] Last Admin: 08/01/22 08:06 Dose: 5,000 unit Documented By: KYLIE Hydralazine HCl (Hydralazine Hcl 50 Mg Tablet) 50 mg PO TID [facility]; Protocol Last Admin: 08/01/22 08:07 Dose: 50 mg Documented By: KYLIE Hydralazine HCl (Hydralazine Hcl 50 Mg Tablet) 50 mg PO QID PRN; Protocol PRN Reason: SBP>190 Last Admin: 07/30/22 19:25 Dose: 50 mg Documented By: COLTON Insulin Human Lispro (Insulin Lispro 100 Unit/Ml 3 Ml Vial) 0 unit SUBCUT QIDACHS [facility]; Protocol Last Admin: 08/01/22 12:12 Dose: 4 unit Documented By: KYLIE Isosorbide Mononitrate (Isosorbide Mononitrate 30 Mg Tab.Er.24h) 30 mg PO DAILY [facility]; Protocol Last Admin: 08/01/22 08:06 Dose: 30 mg Documented By: KYLIE Nifedipine (Nifedipine Er 60 Mg Tab.Er.24) 60 mg PO BEDTIME [facility]; Protocol Last Admin: 07/31/22 19:57 Dose: 60 mg Documented By: COLTON Pharmacy Consult (Consult Rx Perform Med Rec) 1 each MISCELLANE ONCE PRN PRN Reason: Consult order Trazodone HCl (Trazodone Hcl 50 Mg Tablet) 150 mg PO BEDTIME PRN PRN Reason: Insomnia Last Admin: 07/31/22 23:00 Dose: 150 mg Documented By: COLTON Labs 07/30/22 08:45 07/30/22 07:32 Labs: Laboratory Results - last 24 hr 07/31/22 07/31/22 07/31/22 14:22 15:33 19:52 POC Glucose 255 H 189 H Estimat Average Glucose 120 Hemoglobin A1c % 5.8 08/01/22 08/01/22 07:24 11:38 POC Glucose 191 H 244 H Estimat Average Glucose Hemoglobin A1c % Microbiology Microbiology Results: Microbiology 07/26/22 17:40 Blood Culture - Final Blood - Venous No growth after 5 days. Assessment and Plan (1) Labile hypertension: Status: Acute (2) Acute bullous dermatitis: Status: Acute (3) Symptomatic bradycardia: Status: Acute (4) Acute hypotension: Status: Acute Plan 56-year-old gentleman with underlying obesity, hypertension, diabetes mellitus, CKD stage 3-4,? depression/conversion disorder admitted to icu for symptomatic hyotension and bradycardia complciated by acute hypoxic respiratory failure requiring intubation. now extubated and down to 2L nc. acute hypoxic respiratory failure s/p extubation resolved symptomatic hypotension, bradycardia due to medication, hypovolemia required pressors briefly now hypertensive, bps very labile restarted imdur 30mg daily hydralazine to 50mg tid restart low dose nifedipine ER 60mg at bedtime restart low dose Labetalol 100 bid Cardiology input appreciated, consider PPM placement nephro following NPO post midnight thoracic surgery consult LEDA on CKD IV due to hypotension, hypovolemia now at baseline skin bulla seems likely from extracasation with no evidence of DVT on US local care DM insulin hfpef diuretics on hold depression meds on hold obesity GARCIA weight loss dvt prophylaxis - hep sq full code reason for continued hospitalization:labile bps for PPM placement Time Spent With Patient Time: Total time managing care of this patient today ____ minutes. Quality Stroke Does the patient have a stroke diagnosis?: No VTE Prior VTE?: No VTE Risk Level:: Medical - moderate - high VTE Device Contraindication: N/A - Device Ordered VTE Drug Contraindication: N/A - Med Ordered
[2022-08-01] MEDS: Labetalol HCL 100 MG TABLET PO ×2 (12:52→20:35)
[2022-08-01 15:09] LABS: Glucose, Whole Blood 260 mg/dL (60-115)
[2022-08-01 20:28] LABS: Glucose, Whole Blood 228 mg/dL (60-115)
[2022-08-01] MEDS: NIFEdipine ER 60 MG TAB.ER.24 PO (20:37)
[2022-08-01] MEDS: traZODone HCL 50 MG TABLET 150 MG PO (20:38)
[2022-08-02] VITALS (10 sets, daily range): BP systolic 146–196; BP diastolic 64–88; PULSE 75–99; RESP 14–20; TEMP 36.3–37.1; O2SAT 95–98
[2022-08-02] MEDS: Heparin Sodium,Porcine 5,000 UNIT/ML VIAL 5000 UNIT SUBCUT (00:09)
[2022-08-02 07:01] LABS: Prothrombin Time 11.9 SEC (10.0-13.1)
[2022-08-02 07:40] LABS: Glucose, Whole Blood 200 mg/dL (60-115)
--- NOTE | 2022-08-02 08:03 | P.PNGS_ITS ---
Subjective Subjective Date of Service: 08/02/22 Patient reports: no new complaints and feels better Interval history: The patient reports spontaneous drainage of the blister on his right arm. He denies any fevers or chills. He otherwise has no significant complaints Physical Exam Vital Signs: Vital Signs: Last Vital Signs Temp 98.0 F 08/02/22 03:08 Pulse 93 08/02/22 03:08 Resp 18 08/02/22 03:08 BP 179/86 H 08/02/22 03:08 Pulse Ox 96 08/02/22 03:08 O2 Del Method Room Air 08/02/22 03:08 O2 Flow Rate 2 07/29/22 13:04 FiO2 30 07/27/22 11:00 BMI result Body Mass Index 35.3 There is no erythema involving the arm or any of the other small blisters. There is no purulence under the recently popped blister. Recommended unroofing to minimize debris that could get infected. The risks benefits and fact that the scar would be present was discussed with the patient. He seemed understand and wanted me to proceed. Objective Data Active Medications Acetaminophen (Acetaminophen 325 Mg Tablet) 650 mg PO Q6H PRN PRN Reason: Pain, Moderate(Pain Scale 4-6) Last Admin: 07/31/22 23:58 Dose: 650 mg Documented By: COLTON Furosemide (Furosemide 40 Mg Tablet) 40 mg PO DAILY [facility]; Protocol Last Admin: 08/01/22 08:07 Dose: 40 mg Documented By: KYLIE Heparin Sodium (Porcine) (Heparin Sodium,Porcine 5,000 Unit/Ml Vial) 5,000 unit SUBCUT Q8H [facility] Last Admin: 08/02/22 00:09 Dose: 5,000 unit Documented By: MARCIE Hydralazine HCl (Hydralazine Hcl 50 Mg Tablet) 50 mg PO QID PRN; Protocol PRN Reason: SBP>190 Last Admin: 07/30/22 19:25 Dose: 50 mg Documented By: COLTON Hydralazine HCl (Hydralazine Hcl 50 Mg Tablet) 100 mg PO TID [facility]; Protocol Vancomycin HCl 1,500 mg/ (Sodium Chloride) 500 mls @ 333.333 mls/hr IV PREOP ONE Stop: 08/02/22 16:10 Insulin Human Lispro (Insulin Lispro 100 Unit/Ml 3 Ml Vial) 0 unit SUBCUT QIDACHS [facility]; Protocol Last Admin: 08/01/22 20:38 Dose: 4 unit Documented By: MARCIE Isosorbide Mononitrate (Isosorbide Mononitrate 30 Mg Tab.Er.24h) 30 mg PO DAILY [facility]; Protocol Last Admin: 08/01/22 08:06 Dose: 30 mg Documented By: RICHARDARTTimbo Labetalol HCl (Labetalol Hcl 100 Mg Tablet) 300 mg PO BID [facility]; Protocol Nifedipine (Nifedipine Er 60 Mg Tab.Er.24) 60 mg PO BEDTIME [facility]; Protocol Last Admin: 08/01/22 20:37 Dose: 60 mg Documented By: MARCIE Pharmacy Consult (Consult Rx Perform Med Rec) 1 each MISCELLANE ONCE PRN PRN Reason: Consult order Pharmacy Consult (Consult Rx Vancomycin Dosing) 1 each MISCELLANE DAILY PRN PRN Reason: Consult order Trazodone HCl (Trazodone Hcl 50 Mg Tablet) 150 mg PO BEDTIME PRN PRN Reason: Insomnia Last Admin: 08/01/22 20:38 Dose: 150 mg Documented By: MARCIE Labs 07/30/22 08:45 07/30/22 07:32 Labs: Laboratory Results - last 24 hr 08/01/22 08/01/22 08/01/22 11:38 15:03 19:50 PT INR POC Glucose 244 H 260 H 228 H Blood Type Antibody Screen 08/02/22 08/02/22 08/02/22 06:39 07:17 07:22 PT 11.9 INR 1.0 POC Glucose 200 H Blood Type O Positive Antibody Screen NEGATIVE Procedures Date of Service Date of Service: 08/02/22 Abscess I/D Site: other (Right medial forearm) Side (if applicable): right Sedation/analgesia: none Technique: other Irrigation: Yes Additional comments: Scissors and forceps were used to sharply excise the epidermis off of the right arm below to viable tissue. Hissop granulation tissue in the dermis proper is noted. No evidence of cellulitis is present. See orders for bacitracin b.i.d. and dressings. Tolerated well size 5 x 6 cm partial-thickness Progress Note: A&P Time Spent With Patient Time: Total time managing care of this patient today ____ minutes. Quality Stroke Does the patient have a stroke diagnosis?: No VTE Prior VTE?: No VTE Risk Level:: Medical - moderate - high VTE Device Contraindication: N/A - Device Ordered VTE Drug Contraindication: N/A - Med Ordered
[2022-08-02 08:07] LABS: Anion Gap 16 (12-20); Blood Urea Nitrogen 30 mg/dL (9-16); Calcium 9.6 mg/dL (8.4-10.2); Carbon Dioxide 20 mmol/L (22-29); Chloride 109 mmol/L (96-108); Creatinine Clr Calc Pharmacy 48.3; Estimated Glomerular Filt Rate 33; Glucose Random 197 mg/dL (60-115); Potassium 3.9 mmol/L (3.3-5.1); Sodium 141 mmol/L (135-145)
--- NOTE | 2022-08-02 08:15 | P.CONAN_ITS ---
HPI - Anesthesia Eval Consult details Narrative: 56 yo male patient for dual pacemaker insertion PMFSH Active Problems Active Problems: All Active Problems (Updated 08/02/22 @ 08:50 by Vale Farmer MD) Labile hypertension (Acute) Acute bullous dermatitis (Acute) Symptomatic bradycardia (Acute) Acute hypotension (Acute) Junctional rhythm (Acute) Acidosis, lactic (Acute) Acute hyperkalemia (Acute) Pulmonary edema (Acute) Acute respiratory failure with hypoxia (Acute) Metabolic acidosis (Acute) Pneumonia (Acute) Acute on chronic kidney failure (Acute) Acute dehydration (Acute) Vomiting (Acute) Diarrhea (Acute) (HFpEF) heart failure with preserved ejection fraction (Acute) Gallstones (Acute) Knee pain (Acute) Tachycardia (Acute) Vertigo (Acute) Preop exam for internal medicine (Acute) Knee pain (Acute) Cough (Acute) Severe depression (Acute) Physical exam (Acute) Cellulitis (Acute) Essential hypertension (Acute) Obesity (Acute) Type 2 diabetes mellitus with obesity (Acute) Olecranon bursitis of left elbow (Acute) Abnormal LFTs (liver function tests) (Acute) Olecranon bursitis (Acute) Leukocytosis (Acute) Chronic idiopathic constipation (Acute) Abdominal bloating (Acute) Hyperlipidemia (Acute) Hypertensive urgency (Acute) Asymptomatic hypertensive urgency (Acute) Headache (Acute) GARCIA (nonalcoholic steatohepatitis) (Acute) Gallbladder polyp (Acute) Oropharyngeal dysphagia (Acute) Gastroparesis (Acute) GERD (gastroesophageal reflux disease) (Acute) COVID-19 (Acute) Vitamin D deficiency (Acute) Obesity (BMI 30-39.9) (Acute) CKD (chronic kidney disease) stage 3, GFR 30-59 ml/min (Acute) Dyslipidemia (Acute) group home (current) use of insulin (Acute) EDINSON. Not using CPAP machine. Unable to tolerate Past Medical History Medical History Acute hyponatremia Anxiety Cerebral microvascular disease Chronic anemia Chronic hyperglycemia CKD (chronic kidney disease) stage 3, GFR 30-59 ml/min CKD (chronic kidney disease) stage 4, GFR 15-29 ml/min Depression Diabetes mellitus with coincident hypertension Diabetes type 2, uncontrolled Diabetic nephropathy associated with type 2 diabetes mellitus Diabetic neuropathy associated with type 2 diabetes mellitus Dyslipidemia Essential hypertension GERD (gastroesophageal reflux disease) Hepatitis High cholesterol Hypercalcemia Hyperlipidemia Hypertension group home (current) use of insulin Metabolic acidosis Neuropathy New onset of congestive heart failure Obesity (BMI 30-39.9) Severe depression Sleep apnea Type 2 diabetes mellitus with obesity Vertigo Vitamin D deficiency Family History Family History Father Diabetes Mother No problems noted. Family history of problems with anesthesia: No Surgical History Surgical History H/O colonoscopy History of esophagogastroduodenoscopy (EGD) Hx of arthroscopy of knee Hx of arthroscopy of right knee History of Problems with Anesthesia: No Social History Social History Household Members: Unknown / Unable to assess Household Members Other:: SISTER Housing: Apartment Do you presently have visiting nurse or other home services: Yes Unable to assess alcohol history related to: Unable to respond and Unknown Alcohol intake: never Patient Tobacco Use Status: Never used Tobacco e-Cigarette/Vaping Use: Never Used Second Hand Smoke Exposure: Yes (HISTORY OF SECOND HAND SMOKE EXPOSURE) Advance Directives Date on File: 05/05/20 service: No Current occupational status: disabled Current occupation: right handed Cognitive needs: No Hearing needs: No Vision needs: No Meds Allergies Allergy/AdvReac Type Severity Reaction Status Date / Time cephalexin [From KEFLEX] Allergy Mild ITCHY Verified 05/31/22 14:14 THROAT lisinopril [LISINOPRIL] Allergy Unknown SWELLING Verified 05/31/22 14:14 COUGH Active Medications: Current Medications Acetaminophen (Acetaminophen 325 Mg Tablet) 650 mg PO Q6H PRN PRN Reason: Pain, Moderate(Pain Scale 4-6) Last Admin: 07/31/22 23:58 Dose: 650 mg Bacitracin (Bacitracin Oint 14 Gm Tube) 1 appl TOPICAL BID RADHA; Protocol Furosemide (Furosemide 40 Mg Tablet) 40 mg PO DAILY RADHA; Protocol Last Admin: 08/01/22 08:07 Dose: 40 mg Heparin Sodium (Porcine) (Heparin Sodium,Porcine 5,000 Unit/Ml Vial) 5,000 unit SUBCUT Q8H RADHA Last Admin: 08/02/22 00:09 Dose: 5,000 unit Hydralazine HCl (Hydralazine Hcl 50 Mg Tablet) 50 mg PO QID PRN; Protocol PRN Reason: SBP>190 Last Admin: 07/30/22 19:25 Dose: 50 mg Hydralazine HCl (Hydralazine Hcl 50 Mg Tablet) 100 mg PO TID [facility]; Protocol Vancomycin HCl 1,500 mg/ (Sodium Chloride) 500 mls @ 333.333 mls/hr IV PREOP ONE Stop: 08/02/22 16:10 Insulin Human Lispro (Insulin Lispro 100 Unit/Ml 3 Ml Vial) 0 unit SUBCUT QIDAC [facility]; Protocol Last Admin: 08/01/22 20:38 Dose: 4 unit Isosorbide Mononitrate (Isosorbide Mononitrate 30 Mg Tab.Er.24h) 30 mg PO DAILY [facility]; Protocol Last Admin: 08/01/22 08:06 Dose: 30 mg Labetalol HCl (Labetalol Hcl 100 Mg Tablet) 300 mg PO BID [facility]; Protocol Nifedipine (Nifedipine Er 60 Mg Tab.Er.24) 60 mg PO BEDTIME [facility]; Protocol Last Admin: 08/01/22 20:37 Dose: 60 mg Pharmacy Consult (Consult Rx Perform Med Rec) 1 each MISCELLANE ONCE PRN PRN Reason: Consult order Pharmacy Consult (Consult Rx Vancomycin Dosing) 1 each MISCELLANE DAILY PRN PRN Reason: Consult order Trazodone HCl (Trazodone Hcl 50 Mg Tablet) 150 mg PO BEDTIME PRN PRN Reason: Insomnia Last Admin: 08/01/22 20:38 Dose: 150 mg Home Medications Medication Instructions Recorded Confirmed Last Taken Type venlafaxine 150 mg 150 mg PO DAILY 10/30/21 07/26/22 07/21/22 09:00 History capsule,extended release 24 hr multivitamin with folic acid 400 1 tab PO DAILY 03/06/22 07/26/22 07/21/22 09:00 History mcg tablet (Tab-A-George) pen needle, diabetic 32 gauge x #50 ea 03/06/22 06/02/22 Unknown History 06/14 (Ultracare Pen Needle) bupropion HCl 150 mg 24 hr tablet, 150 mg PO DAILY 05/16/22 07/26/22 07/21/22 09:00 History extended release insulin aspart U-100 100 unit/mL 14 unit subcut TIDAC 05/16/22 07/26/22 07/21/22 18:00 History (3 mL) subcutaneous pen (Novolog FlexPen U-100 Insulin aspart) insulin glargine U-300 conc 300 70 unit subcut DAILY 05/16/22 07/26/22 07/21/22 09:00 History unit/mL (3 mL) subcutaneous pen (Toujeo Max U-300 SoloStar) meclizine 25 mg tablet 25 mg PO Q6H PRN Dizziness 05/16/22 07/26/22 06/18/22 History trazodone 150 mg tablet 150 mg PO BEDTIME 05/16/22 07/26/22 07/20/22 History Exam Exam Date and Time: August 02, 2022 0815 Height,Weight and Vital Signs: Height 5 ft 9 in Weight 108.5 kg Last Vital Signs Temp 98.1 F 08/02/22 08:00 Pulse 88 08/02/22 08:00 Resp 20 08/02/22 08:00 BP 176/80 H 08/02/22 08:00 Pulse Ox 98 08/02/22 08:00 O2 Del Method Room Air 08/02/22 08:00 O2 Flow Rate 2 07/29/22 13:04 FiO2 30 07/27/22 11:00 Vital Signs Temp Pulse Resp BP Pulse Ox O2 Del Method 08/02/22 09:04 97.7 F 99 17 196/87 H 97 Room Air 08/02/22 08:00 98.1 F 88 20 176/80 H 98 Room Air 08/02/22 03:08 98.0 F 93 18 179/86 H 96 Room Air 08/01/22 23:02 98.6 F 86 18 180/85 H 97 Room Air 08/01/22 19:54 98.8 F 89 18 180/75 H 98 Room Air 08/01/22 15:06 98.0 F 89 18 159/50 H 98 Room Air 08/01/22 11:19 98.2 F 94 20 180/60 H 97 Room Air Pertinent Lab Results Pertinent Lab Results: Laboratory Tests 07/26/22 07/26/22 07/26/22 14:28 14:28 14:28 WBC 12.4 H RBC 3.03 L Hgb 8.9 L Hct 26.4 L MCV 87.1 MCH 29.4 MCHC 33.7 RDW 13.0 Plt Count 218 MPV 9.7 Immature Gran % (Auto) 0.8 H Neut % (Auto) 74.4 H Lymph % (Auto) 13.5 L [place] % (Auto) 9.5 Eos % (Auto) 1.2 Baso % (Auto) 0.6 Lymph # (Auto) 1.7 [place] # (Auto) 1.2 Eos # (Auto) 0.2 Baso # (Auto) 0.1 Abs Immat Gran (auto) 0.10 H Absolute Neuts (auto) 9.2 H Absolute Nucleated RBC 0.000 Nucleated RBC % (auto) 0.0 PT INR O2 Saturation ABG pH at Pt Temp ABG pCO2 at Pt Temp ABG pO2 at Pt Temp ABG HCO3 ABG Base Excess (Actual) VBG pH VBG pCO2 VBG pO2 VBG HCO3 VBG O2 Saturation VBG Base Excess Sodium 131 L Potassium 5.6 H D Chloride 98 Carbon Dioxide 19 L Anion Gap 20 BUN 44 H Creatinine 3.51 H Estim Creat Clear Calc 27.9 Estimated GFR 18 POC Glucose Random Glucose 76 Fasting Glucose Estimat Average Glucose Hemoglobin A1c % Lactic Acid 3.7 H* Lactic Acid F/U @ 2Hr Calcium 9.1 Phosphorus Magnesium Total Bilirubin 0.5 AST 27 ALT 39 Alkaline Phosphatase 177 H Troponin I High Sens Total Protein 6.9 Albumin 3.8 TSH 1.62 Urine Color Urine Appearance Urine pH Ur Specific [place] Urine Protein Urine Glucose (UA) Urine Ketones Urine Blood Urine Nitrite Ur Leukocyte Esterase Urine RBC Urine WBC Ur Squamous Epith Cells Urine Bacteria Hyaline Casts Blood Type Antibody Screen 07/26/22 07/26/22 07/26/22 14:28 15:06 15:41 WBC RBC Hgb Hct MCV MCH MCHC RDW Plt Count MPV Immature Gran % (Auto) Neut % (Auto) Lymph % (Auto) [place] % (Auto) Eos % (Auto) Baso % (Auto) Lymph # (Auto) [place] # (Auto) Eos # (Auto) Baso # (Auto) Abs Immat Gran (auto) Absolute Neuts (auto) Absolute Nucleated RBC Nucleated RBC % (auto) PT INR O2 Saturation ABG pH at Pt Temp ABG pCO2 at Pt Temp ABG pO2 at Pt Temp ABG HCO3 ABG Base Excess (Actual) VBG pH VBG pCO2 VBG pO2 VBG HCO3 VBG O2 Saturation VBG Base Excess Sodium Potassium Chloride Carbon Dioxide Anion Gap BUN Creatinine Estim Creat Clear Calc Estimated GFR POC Glucose 62 88 Random Glucose Fasting Glucose Estimat Average Glucose Hemoglobin A1c % Lactic Acid Lactic Acid F/U @ 2Hr Calcium Phosphorus Magnesium Total Bilirubin AST ALT Alkaline Phosphatase Troponin I High Sens 6.5 Total Protein Albumin TSH Urine Color Urine Appearance Urine pH Ur Specific [place] Urine Protein Urine Glucose (UA) Urine Ketones Urine Blood Urine Nitrite Ur Leukocyte Esterase Urine RBC Urine WBC Ur Squamous Epith Cells Urine Bacteria Hyaline Casts Blood Type Antibody Screen 07/26/22 07/26/22 07/26/22 16:28 17:04 17:58 WBC RBC Hgb Hct MCV MCH MCHC RDW Plt Count MPV Immature Gran % (Auto) Neut % (Auto) Lymph % (Auto) [place] % (Auto) Eos % (Auto) Baso % (Auto) Lymph # (Auto) [place] # (Auto) Eos # (Auto) Baso # (Auto) Abs Immat Gran (auto) Absolute Neuts (auto) Absolute Nucleated RBC Nucleated RBC % (auto) PT INR O2 Saturation 96.0 ABG pH at Pt Temp 7.39 ABG pCO2 at Pt Temp 29 L ABG pO2 at Pt Temp 95 ABG HCO3 18 L ABG Base Excess (Actual) -5.7 VBG pH VBG pCO2 VBG pO2 VBG HCO3 VBG O2 Saturation VBG Base Excess Sodium Potassium Chloride Carbon Dioxide Anion Gap BUN Creatinine Estim Creat Clear Calc Estimated GFR POC Glucose 107 Random Glucose Fasting Glucose Estimat Average Glucose Hemoglobin A1c % Lactic Acid Lactic Acid F/U @ 2Hr Calcium Phosphorus Magnesium Total Bilirubin AST ALT Alkaline Phosphatase Troponin I High Sens Total Protein Albumin TSH Urine Color Yellow Urine Appearance Clear Urine pH 5.5 Ur Specific [place] <= 1.005 Urine Protein 100 (2+) H Urine Glucose (UA) Negative Urine Ketones Negative Urine Blood Negative Urine Nitrite Negative Ur Leukocyte Esterase Negative Urine RBC 0-2 Urine WBC 0-5 Ur Squamous Epith Cells 0-2 Urine Bacteria None Seen Hyaline Casts 0-2 Blood Type Antibody Screen 07/26/22 07/26/22 07/26/22 18:08 18:08 18:08 WBC RBC Hgb Hct MCV MCH MCHC RDW Plt Count MPV Immature Gran % (Auto) Neut % (Auto) Lymph % (Auto) [place] % (Auto) Eos % (Auto) Baso % (Auto) Lymph # (Auto) [place] # (Auto) Eos # (Auto) Baso # (Auto) Abs Immat Gran (auto) Absolute Neuts (auto) Absolute Nucleated RBC Nucleated RBC % (auto) PT INR O2 Saturation ABG pH at Pt Temp ABG pCO2 at Pt Temp ABG pO2 at Pt Temp ABG HCO3 ABG Base Excess (Actual) VBG pH VBG pCO2 VBG pO2 VBG HCO3 VBG O2 Saturation VBG Base Excess Sodium 131 L Potassium 5.0 Chloride 101 Carbon Dioxide 16 L Anion Gap 19 BUN 46 H Creatinine 3.46 H Estim Creat Clear Calc 28.7 Estimated GFR 18 POC Glucose 127 H Random Glucose 116 H Fasting Glucose Estimat Average Glucose Hemoglobin A1c % Lactic Acid Lactic Acid F/U @ 2Hr 1.1 Calcium 9.0 Phosphorus Magnesium Total Bilirubin AST ALT Alkaline Phosphatase Troponin I High Sens Total Protein Albumin TSH Urine Color Urine Appearance Urine pH Ur Specific [place] Urine Protein Urine Glucose (UA) Urine Ketones Urine Blood Urine Nitrite Ur Leukocyte Esterase Urine RBC Urine WBC Ur Squamous Epith Cells Urine Bacteria Hyaline Casts Blood Type Antibody Screen 07/26/22 07/26/22 07/27/22 19:55 23:55 04:23 WBC RBC Hgb Hct MCV MCH MCHC RDW Plt Count MPV Immature Gran % (Auto) Neut % (Auto) Lymph % (Auto) [place] % (Auto) Eos % (Auto) Baso % (Auto) Lymph # (Auto) [place] # (Auto) Eos # (Auto) Baso # (Auto) Abs Immat Gran (auto) Absolute Neuts (auto) Absolute Nucleated RBC Nucleated RBC % (auto) PT INR O2 Saturation ABG pH at Pt Temp ABG pCO2 at Pt Temp ABG pO2 at Pt Temp ABG HCO3 ABG Base Excess (Actual) VBG pH 7.47 H 7.53 H VBG pCO2 27 27 VBG pO2 60 51 VBG HCO3 20 L 23 VBG O2 Saturation 87.0 82.0 VBG Base Excess -2.0 1.7 Sodium Potassium Chloride Carbon Dioxide Anion Gap BUN Creatinine Estim Creat Clear Calc Estimated GFR POC Glucose 247 H Random Glucose Fasting Glucose Estimat Average Glucose Hemoglobin A1c % Lactic Acid Lactic Acid F/U @ 2Hr Calcium Phosphorus Magnesium Total Bilirubin AST ALT Alkaline Phosphatase Troponin I High Sens Total Protein Albumin TSH Urine Color Urine Appearance Urine pH Ur Specific [place] Urine Protein Urine Glucose (UA) Urine Ketones Urine Blood Urine Nitrite Ur Leukocyte Esterase Urine RBC Urine WBC Ur Squamous Epith Cells Urine Bacteria Hyaline Casts Blood Type Antibody Screen 07/27/22 07/27/22 07/27/22 04:25 04:25 12:19 WBC 9.5 RBC 2.74 L Hgb 8.1 L Hct 22.7 L MCV 82.8 MCH 29.6 MCHC 35.7 RDW 12.7 Plt Count 168 MPV 9.5 Immature Gran % (Auto) 0.7 H Neut % (Auto) 73.5 H Lymph % (Auto) 14.0 L [place] % (Auto) 10.7 Eos % (Auto) 0.6 Baso % (Auto) 0.5 Lymph # (Auto) 1.3 [place] # (Auto) 1.0 Eos # (Auto) 0.1 Baso # (Auto) 0.1 Abs Immat Gran (auto) 0.07 H Absolute Neuts (auto) 7.0 Absolute Nucleated RBC 0.000 Nucleated RBC % (auto) 0.0 PT INR O2 Saturation ABG pH at Pt Temp ABG pCO2 at Pt Temp ABG pO2 at Pt Temp ABG HCO3 ABG Base Excess (Actual) VBG pH VBG pCO2 VBG pO2 VBG HCO3 VBG O2 Saturation VBG Base Excess Sodium 131 L Potassium 3.7 D Chloride 100 Carbon Dioxide 23 Anion Gap 12 BUN 43 H Creatinine 3.28 H Estim Creat Clear Calc 30.3 Estimated GFR 20 POC Glucose 127 H Random Glucose 159 H Fasting Glucose Estimat Average Glucose Hemoglobin A1c % Lactic Acid Lactic Acid F/U @ 2Hr Calcium 8.6 Phosphorus 3.1 Magnesium 1.3 L* Total Bilirubin 0.3 AST 35 ALT 63 H Alkaline Phosphatase 170 H Troponin I High Sens Total Protein 5.8 L Albumin 3.2 L TSH Urine Color Urine Appearance Urine pH Ur Specific [place] Urine Protein Urine Glucose (UA) Urine Ketones Urine Blood Urine Nitrite Ur Leukocyte Esterase Urine RBC Urine WBC Ur Squamous Epith Cells Urine Bacteria Hyaline Casts Blood Type Antibody Screen 07/27/22 07/27/22 07/28/22 16:01 19:35 05:45 WBC 8.9 RBC 2.98 L Hgb 8.6 L Hct 26.4 L MCV 88.6 D MCH 28.9 MCHC 32.6 RDW 13.1 Plt Count 194 MPV 9.9 Immature Gran % (Auto) 0.4 Neut % (Auto) 69.0 Lymph % (Auto) 16.5 L [place] % (Auto) 11.4 H Eos % (Auto) 2.0 Baso % (Auto) 0.7 Lymph # (Auto) 1.5 [place] # (Auto) 1.0 Eos # (Auto) 0.2 Baso # (Auto) 0.1 Abs Immat Gran (auto) 0.04 H Absolute Neuts (auto) 6.2 Absolute Nucleated RBC 0.000 Nucleated RBC % (auto) 0.0 PT INR O2 Saturation ABG pH at Pt Temp ABG pCO2 at Pt Temp ABG pO2 at Pt Temp ABG HCO3 ABG Base Excess (Actual) VBG pH VBG pCO2 VBG pO2 VBG HCO3 VBG O2 Saturation VBG Base Excess Sodium Potassium Chloride Carbon Dioxide Anion Gap BUN Creatinine Estim Creat Clear Calc Estimated GFR POC Glucose 132 H 136 H Random Glucose Fasting Glucose Estimat Average Glucose Hemoglobin A1c % Lactic Acid Lactic Acid F/U @ 2Hr Calcium Phosphorus Magnesium Total Bilirubin AST ALT Alkaline Phosphatase Troponin I High Sens Total Protein Albumin TSH Urine Color Urine Appearance Urine pH Ur Specific [place] Urine Protein Urine Glucose (UA) Urine Ketones Urine Blood Urine Nitrite Ur Leukocyte Esterase Urine RBC Urine WBC Ur Squamous Epith Cells Urine Bacteria Hyaline Casts Blood Type Antibody Screen 07/28/22 07/28/22 07/28/22 05:45 07:13 08:00 WBC RBC Hgb Hct MCV MCH MCHC RDW Plt Count MPV Immature Gran % (Auto) Neut % (Auto) Lymph % (Auto) [place] % (Auto) Eos % (Auto) Baso % (Auto) Lymph # (Auto) [place] # (Auto) Eos # (Auto) Baso # (Auto) Abs Immat Gran (auto) Absolute Neuts (auto) Absolute Nucleated RBC Nucleated RBC % (auto) PT INR O2 Saturation ABG pH at Pt Temp ABG pCO2 at Pt Temp ABG pO2 at Pt Temp ABG HCO3 ABG Base Excess (Actual) VBG pH 7.52 H VBG pCO2 34 VBG pO2 215 VBG HCO3 28 H VBG O2 Saturation 100.0 VBG Base Excess TNP Sodium 139 Potassium 4.8 D Chloride 106 Carbon Dioxide 26 Anion Gap 12 BUN 32 H Creatinine 2.42 H Estim Creat Clear Calc 41.3 Estimated GFR 28 POC Glucose 98 Random Glucose 85 Fasting Glucose Estimat Average Glucose Hemoglobin A1c % Lactic Acid Lactic Acid F/U @ 2Hr Calcium 9.0 Phosphorus 4.2 Magnesium 1.8 Total Bilirubin 0.4 AST 22 ALT 53 H Alkaline Phosphatase 191 H Troponin I High Sens Total Protein 6.1 L Albumin 3.4 L TSH Urine Color Urine Appearance Urine pH Ur Specific [place] Urine Protein Urine Glucose (UA) Urine Ketones Urine Blood Urine Nitrite Ur Leukocyte Esterase Urine RBC Urine WBC Ur Squamous Epith Cells Urine Bacteria Hyaline Casts Blood Type Antibody Screen 07/28/22 07/28/22 07/28/22 11:47 15:27 19:47 WBC RBC Hgb Hct MCV MCH MCHC RDW Plt Count MPV Immature Gran % (Auto) Neut % (Auto) Lymph % (Auto) [place] % (Auto) Eos % (Auto) Baso % (Auto) Lymph # (Auto) [place] # (Auto) Eos # (Auto) Baso # (Auto) Abs Immat Gran (auto) Absolute Neuts (auto) Absolute Nucleated RBC Nucleated RBC % (auto) PT INR O2 Saturation ABG pH at Pt Temp ABG pCO2 at Pt Temp ABG pO2 at Pt Temp ABG HCO3 ABG Base Excess (Actual) VBG pH VBG pCO2 VBG pO2 VBG HCO3 VBG O2 Saturation VBG Base Excess Sodium Potassium Chloride Carbon Dioxide Anion Gap BUN Creatinine Estim Creat Clear Calc Estimated GFR POC Glucose 198 H 187 H 150 H Random Glucose Fasting Glucose Estimat Average Glucose Hemoglobin A1c % Lactic Acid Lactic Acid F/U @ 2Hr Calcium Phosphorus Magnesium Total Bilirubin AST ALT Alkaline Phosphatase Troponin I High Sens Total Protein Albumin TSH Urine Color Urine Appearance Urine pH Ur Specific [place] Urine Protein Urine Glucose (UA) Urine Ketones Urine Blood Urine Nitrite Ur Leukocyte Esterase Urine RBC Urine WBC Ur Squamous Epith Cells Urine Bacteria Hyaline Casts Blood Type Antibody Screen 07/29/22 07/29/22 07/29/22 06:18 06:18 07:28 WBC 10.0 RBC 2.95 L Hgb 8.9 L Hct 26.5 L MCV 89.8 MCH 30.2 MCHC 33.6 RDW 13.0 Plt Count 209 MPV 9.9 Immature Gran % (Auto) Neut % (Auto) Lymph % (Auto) [place] % (Auto) Eos % (Auto) Baso % (Auto) Lymph # (Auto) [place] # (Auto) Eos # (Auto) Baso # (Auto) Abs Immat Gran (auto) Absolute Neuts (auto) Absolute Nucleated RBC 0.000 Nucleated RBC % (auto) 0.0 PT INR O2 Saturation ABG pH at Pt Temp ABG pCO2 at Pt Temp ABG pO2 at Pt Temp ABG HCO3 ABG Base Excess (Actual) VBG pH VBG pCO2 VBG pO2 VBG HCO3 VBG O2 Saturation VBG Base Excess Sodium 142 Potassium 4.3 Chloride 108 Carbon Dioxide 29 Anion Gap 9 L BUN 28 H Creatinine 2.16 H Estim Creat Clear Calc 46.3 Estimated GFR 32 POC Glucose 133 H Random Glucose Fasting Glucose 117 H Estimat Average Glucose Hemoglobin A1c % Lactic Acid Lactic Acid F/U @ 2Hr Calcium 9.3 Phosphorus Magnesium Total Bilirubin AST ALT Alkaline Phosphatase Troponin I High Sens Total Protein Albumin TSH Urine Color Urine Appearance Urine pH Ur Specific [place] Urine Protein Urine Glucose (UA) Urine Ketones Urine Blood Urine Nitrite Ur Leukocyte Esterase Urine RBC Urine WBC Ur Squamous Epith Cells Urine Bacteria Hyaline Casts Blood Type Antibody Screen 07/29/22 07/29/22 07/29/22 11:47 15:21 19:26 WBC RBC Hgb Hct MCV MCH MCHC RDW Plt Count MPV Immature Gran % (Auto) Neut % (Auto) Lymph % (Auto) [place] % (Auto) Eos % (Auto) Baso % (Auto) Lymph # (Auto) [place] # (Auto) Eos # (Auto) Baso # (Auto) Abs Immat Gran (auto) Absolute Neuts (auto) Absolute Nucleated RBC Nucleated RBC % (auto) PT INR O2 Saturation ABG pH at Pt Temp ABG pCO2 at Pt Temp ABG pO2 at Pt Temp ABG HCO3 ABG Base Excess (Actual) VBG pH VBG pCO2 VBG pO2 VBG HCO3 VBG O2 Saturation VBG Base Excess Sodium Potassium Chloride Carbon Dioxide Anion Gap BUN Creatinine Estim Creat Clear Calc Estimated GFR POC Glucose 290 H 190 H 195 H Random Glucose Fasting Glucose Estimat Average Glucose Hemoglobin A1c % Lactic Acid Lactic Acid F/U @ 2Hr Calcium Phosphorus Magnesium Total Bilirubin AST ALT Alkaline Phosphatase Troponin I High Sens Total Protein Albumin TSH Urine Color Urine Appearance Urine pH Ur Specific [place] Urine Protein Urine Glucose (UA) Urine Ketones Urine Blood Urine Nitrite Ur Leukocyte Esterase Urine RBC Urine WBC Ur Squamous Epith Cells Urine Bacteria Hyaline Casts Blood Type Antibody Screen 07/30/22 07/30/22 07/30/22 07:30 07:32 08:45 WBC 11.5 H RBC 2.91 L Hgb 8.8 L Hct 25.4 L MCV 87.3 MCH 30.2 MCHC 34.6 RDW 12.7 Plt Count 209 MPV 10.2 Immature Gran % (Auto) Neut % (Auto) Lymph % (Auto) [place] % (Auto) Eos % (Auto) Baso % (Auto) Lymph # (Auto) [place] # (Auto) Eos # (Auto) Baso # (Auto) Abs Immat Gran (auto) Absolute Neuts (auto) Absolute Nucleated RBC 0.000 Nucleated RBC % (auto) 0.0 PT INR O2 Saturation ABG pH at Pt Temp ABG pCO2 at Pt Temp ABG pO2 at Pt Temp ABG HCO3 ABG Base Excess (Actual) VBG pH VBG pCO2 VBG pO2 VBG HCO3 VBG O2 Saturation VBG Base Excess Sodium 141 Potassium 4.4 Chloride 107 Carbon Dioxide 26 Anion Gap 12 BUN 26 H Creatinine 1.96 H Estim Creat Clear Calc 51.0 Estimated GFR 36 POC Glucose 176 H Random Glucose Fasting Glucose 175 H Estimat Average Glucose Hemoglobin A1c % Lactic Acid Lactic Acid F/U @ 2Hr Calcium 9.2 Phosphorus Magnesium Total Bilirubin AST ALT Alkaline Phosphatase Troponin I High Sens Total Protein Albumin TSH Urine Color Urine Appearance Urine pH Ur Specific [place] Urine Protein Urine Glucose (UA) Urine Ketones Urine Blood Urine Nitrite Ur Leukocyte Esterase Urine RBC Urine WBC Ur Squamous Epith Cells Urine Bacteria Hyaline Casts Blood Type Antibody Screen 07/30/22 07/30/22 07/30/22 11:55 15:37 20:11 WBC RBC Hgb Hct MCV MCH MCHC RDW Plt Count MPV Immature Gran % (Auto) Neut % (Auto) Lymph % (Auto) [place] % (Auto) Eos % (Auto) Baso % (Auto) Lymph # (Auto) [place] # (Auto) Eos # (Auto) Baso # (Auto) Abs Immat Gran (auto) Absolute Neuts (auto) Absolute Nucleated RBC Nucleated RBC % (auto) PT INR O2 Saturation ABG pH at Pt Temp ABG pCO2 at Pt Temp ABG pO2 at Pt Temp ABG HCO3 ABG Base Excess (Actual) VBG pH VBG pCO2 VBG pO2 VBG HCO3 VBG O2 Saturation VBG Base Excess Sodium Potassium Chloride Carbon Dioxide Anion Gap BUN Creatinine Estim Creat Clear Calc Estimated GFR POC Glucose 152 H 174 H 253 H Random Glucose Fasting Glucose Estimat Average Glucose Hemoglobin A1c % Lactic Acid Lactic Acid F/U @ 2Hr Calcium Phosphorus Magnesium Total Bilirubin AST ALT Alkaline Phosphatase Troponin I High Sens Total Protein Albumin TSH Urine Color Urine Appearance Urine pH Ur Specific [place] Urine Protein Urine Glucose (UA) Urine Ketones Urine Blood Urine Nitrite Ur Leukocyte Esterase Urine RBC Urine WBC Ur Squamous Epith Cells Urine Bacteria Hyaline Casts Blood Type Antibody Screen 07/31/22 07/31/22 07/31/22 07:29 10:58 14:22 WBC RBC Hgb Hct MCV MCH MCHC RDW Plt Count MPV Immature Gran % (Auto) Neut % (Auto) Lymph % (Auto) [place] % (Auto) Eos % (Auto) Baso % (Auto) Lymph # (Auto) [place] # (Auto) Eos # (Auto) Baso # (Auto) Abs Immat Gran (auto) Absolute Neuts (auto) Absolute Nucleated RBC Nucleated RBC % (auto) PT INR O2 Saturation ABG pH at Pt Temp ABG pCO2 at Pt Temp ABG pO2 at Pt Temp ABG HCO3 ABG Base Excess (Actual) VBG pH VBG pCO2 VBG pO2 VBG HCO3 VBG O2 Saturation VBG Base Excess Sodium Potassium Chloride Carbon Dioxide Anion Gap BUN Creatinine Estim Creat Clear Calc Estimated GFR POC Glucose 186 H 226 H Random Glucose Fasting Glucose Estimat Average Glucose 120 Hemoglobin A1c % 5.8 Lactic Acid Lactic Acid F/U @ 2Hr Calcium Phosphorus Magnesium Total Bilirubin AST ALT Alkaline Phosphatase Troponin I High Sens Total Protein Albumin TSH Urine Color Urine Appearance Urine pH Ur Specific [place] Urine Protein Urine Glucose (UA) Urine Ketones Urine Blood Urine Nitrite Ur Leukocyte Esterase Urine RBC Urine WBC Ur Squamous Epith Cells Urine Bacteria Hyaline Casts Blood Type Antibody Screen 07/31/22 07/31/22 08/01/22 15:33 19:52 07:24 WBC RBC Hgb Hct MCV MCH MCHC RDW Plt Count MPV Immature Gran % (Auto) Neut % (Auto) Lymph % (Auto) [place] % (Auto) Eos % (Auto) Baso % (Auto) Lymph # (Auto) [place] # (Auto) Eos # (Auto) Baso # (Auto) Abs Immat Gran (auto) Absolute Neuts (auto) Absolute Nucleated RBC Nucleated RBC % (auto) PT INR O2 Saturation ABG pH at Pt Temp ABG pCO2 at Pt Temp ABG pO2 at Pt Temp ABG HCO3 ABG Base Excess (Actual) VBG pH VBG pCO2 VBG pO2 VBG HCO3 VBG O2 Saturation VBG Base Excess Sodium Potassium Chloride Carbon Dioxide Anion Gap BUN Creatinine Estim Creat Clear Calc Estimated GFR POC Glucose 255 H 189 H 191 H Random Glucose Fasting Glucose Estimat Average Glucose Hemoglobin A1c % Lactic Acid Lactic Acid F/U @ 2Hr Calcium Phosphorus Magnesium Total Bilirubin AST ALT Alkaline Phosphatase Troponin I High Sens Total Protein Albumin TSH Urine Color Urine Appearance Urine pH Ur Specific [place] Urine Protein Urine Glucose (UA) Urine Ketones Urine Blood Urine Nitrite Ur Leukocyte Esterase Urine RBC Urine WBC Ur Squamous Epith Cells Urine Bacteria Hyaline Casts Blood Type Antibody Screen 08/01/22 08/01/22 08/01/22 11:38 15:03 19:50 WBC RBC Hgb Hct MCV MCH MCHC RDW Plt Count MPV Immature Gran % (Auto) Neut % (Auto) Lymph % (Auto) [place] % (Auto) Eos % (Auto) Baso % (Auto) Lymph # (Auto) [place] # (Auto) Eos # (Auto) Baso # (Auto) Abs Immat Gran (auto) Absolute Neuts (auto) Absolute Nucleated RBC Nucleated RBC % (auto) PT INR O2 Saturation ABG pH at Pt Temp ABG pCO2 at Pt Temp ABG pO2 at Pt Temp ABG HCO3 ABG Base Excess (Actual) VBG pH VBG pCO2 VBG pO2 VBG HCO3 VBG O2 Saturation VBG Base Excess Sodium Potassium Chloride Carbon Dioxide Anion Gap BUN Creatinine Estim Creat Clear Calc Estimated GFR POC Glucose 244 H 260 H 228 H Random Glucose Fasting Glucose Estimat Average Glucose Hemoglobin A1c % Lactic Acid Lactic Acid F/U @ 2Hr Calcium Phosphorus Magnesium Total Bilirubin AST ALT Alkaline Phosphatase Troponin I High Sens Total Protein Albumin TSH Urine Color Urine Appearance Urine pH Ur Specific [place] Urine Protein Urine Glucose (UA) Urine Ketones Urine Blood Urine Nitrite Ur Leukocyte Esterase Urine RBC Urine WBC Ur Squamous Epith Cells Urine Bacteria Hyaline Casts Blood Type Antibody Screen 08/02/22 08/02/22 08/02/22 06:39 06:39 07:17 WBC RBC Hgb Hct MCV MCH MCHC RDW Plt Count MPV Immature Gran % (Auto) Neut % (Auto) Lymph % (Auto) [place] % (Auto) Eos % (Auto) Baso % (Auto) Lymph # (Auto) [place] # (Auto) Eos # (Auto) Baso # (Auto) Abs Immat Gran (auto) Absolute Neuts (auto) Absolute Nucleated RBC Nucleated RBC % (auto) PT 11.9 INR 1.0 O2 Saturation ABG pH at Pt Temp ABG pCO2 at Pt Temp ABG pO2 at Pt Temp ABG HCO3 ABG Base Excess (Actual) VBG pH VBG pCO2 VBG pO2 VBG HCO3 VBG O2 Saturation VBG Base Excess Sodium 141 Potassium 3.9 Chloride 109 H Carbon Dioxide 20 L Anion Gap 16 BUN 30 H Creatinine 2.07 H Estim Creat Clear Calc 48.3 Estimated GFR 33 POC Glucose Random Glucose 197 H Fasting Glucose Estimat Average Glucose Hemoglobin A1c % Lactic Acid Lactic Acid F/U @ 2Hr Calcium 9.6 Phosphorus Magnesium Total Bilirubin AST ALT Alkaline Phosphatase Troponin I High Sens Total Protein Albumin TSH Urine Color Urine Appearance Urine pH Ur Specific [place] Urine Protein Urine Glucose (UA) Urine Ketones Urine Blood Urine Nitrite Ur Leukocyte Esterase Urine RBC Urine WBC Ur Squamous Epith Cells Urine Bacteria Hyaline Casts Blood Type O Positive Antibody Screen NEGATIVE 08/02/22 07:22 WBC RBC Hgb Hct MCV MCH MCHC RDW Plt Count MPV Immature Gran % (Auto) Neut % (Auto) Lymph % (Auto) [place] % (Auto) Eos % (Auto) Baso % (Auto) Lymph # (Auto) [place] # (Auto) Eos # (Auto) Baso # (Auto) Abs Immat Gran (auto) Absolute Neuts (auto) Absolute Nucleated RBC Nucleated RBC % (auto) PT INR O2 Saturation ABG pH at Pt Temp ABG pCO2 at Pt Temp ABG pO2 at Pt Temp ABG HCO3 ABG Base Excess (Actual) VBG pH VBG pCO2 VBG pO2 VBG HCO3 VBG O2 Saturation VBG Base Excess Sodium Potassium Chloride Carbon Dioxide Anion Gap BUN Creatinine Estim Creat Clear Calc Estimated GFR POC Glucose 200 H Random Glucose Fasting Glucose Estimat Average Glucose Hemoglobin A1c % Lactic Acid Lactic Acid F/U @ 2Hr Calcium Phosphorus Magnesium Total Bilirubin AST ALT Alkaline Phosphatase Troponin I High Sens Total Protein Albumin TSH Urine Color Urine Appearance Urine pH Ur Specific [place] Urine Protein Urine Glucose (UA) Urine Ketones Urine Blood Urine Nitrite Ur Leukocyte Esterase Urine RBC Urine WBC Ur Squamous Epith Cells Urine Bacteria Hyaline Casts Blood Type Antibody Screen Laboratory Results - last 24 hr 08/01/22 08/01/22 08/01/22 11:38 15:03 19:50 PT INR Anion Gap Estim Creat Clear Calc Estimated GFR POC Glucose 244 H 260 H 228 H Random Glucose Calcium Blood Type Antibody Screen 08/02/22 08/02/22 08/02/22 06:39 06:39 07:17 PT 11.9 INR 1.0 Anion Gap 16 Estim Creat Clear Calc 48.3 Estimated GFR 33 POC Glucose Random Glucose 197 H Calcium 9.6 Blood Type O Positive Antibody Screen NEGATIVE 08/02/22 08/02/22 07:22 09:29 PT INR Anion Gap Estim Creat Clear Calc Estimated GFR POC Glucose 200 H 219 H Random Glucose Calcium Blood Type Antibody Screen Narrative Narrative: Procedure Date:? 06/22/2022 Procedure Type:? Transthoracic Echocardiogram Limited Location:? [facility] Symptoms:? CHF, re-assess LV Function Study Quality: ? Adequate ECG Rhythm:? ? ? Sinus ?? ? Conclusions: - 1. Normal LV systolic function with mild LVH with impaired ? ? relaxation filling pattern ? 2. Normal RV systolic pressure ? Findings Left Ventricle Normal left ventricular size and systolic function. There is mildly increased left ventricular wall thickness.? The visually estimated ejection fraction is between 60-65%.? Spectral Doppler is indicative of an impaired relaxation filling pattern.? E/E prime ratio is between 8 and 15 consistent with indeterminate filling pressures. Right Ventricle Mildly increased right ventricular cavity size.? There is normal right ventricular systolic function. Tricuspid Valve There is no tricuspid valve regurgitation.? The right ventricular systolic pressure is normal.? There is no evidence of pulmonary hypertension. Pericardium/Pleural There is no evidence of pericardial effusion. Prior Study Comparison No significant change compared to prior study dated:? 05/24/2022. ?? 08/02/22: CXR - No acute cardiopulmonary process Airway Mallampati Class: III TM Dist: >3cm Neck ROM: Full Loose/Missing/Broken Teeth: Yes (Broken tooth bottom right back) Heart: RRR Lungs: Diminished BS right Assessment and Plan Assessment Anesthesia Assessment: Anesthesia Plan Discussed and Chart Reviewed Final Anesthetic Review Family History of Problems with Anesthesia: No History of Problems with Anesthesia: No NPO: Yes ASA Class: IV and Emergency Final Preanesthetic Review: No Changes in Pt Med Stat, Meds/Allgs Chart Reviewed, Consent Obtained/Reviewed and Anes Risks/Benef Reviewed Patient Risk: High Procedure Risk: Intermediate Assessment/Block/Sedation in : Assess/Block/Sedation-SS Anesthetic Plan Anesthetic Plan: MAC: Disposition: Extended PACU and Inp. Admit - [facility]
--- NOTE | 2022-08-02 09:31 | HO.THORCONS ---
History of Present Illness Consult details Consult date: 08/01/22 Narrative: Thoracic surgical consult because of symptomatic bradycardia. Workup including cardiology consult necessitates a permanent pacemaker placement for the patient. Chart was reviewed patient evaluated. [facility] Past Medical History Medical History Acute hyponatremia Anxiety Cerebral microvascular disease Chronic anemia Chronic hyperglycemia CKD (chronic kidney disease) stage 3, GFR 30-59 ml/min CKD (chronic kidney disease) stage 4, GFR 15-29 ml/min Depression Diabetes mellitus with coincident hypertension Diabetes type 2, uncontrolled Diabetic nephropathy associated with type 2 diabetes mellitus Diabetic neuropathy associated with type 2 diabetes mellitus Dyslipidemia Essential hypertension GERD (gastroesophageal reflux disease) Hepatitis High cholesterol Hypercalcemia Hyperlipidemia Hypertension 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 Surgical History Surgical History H/O colonoscopy History of esophagogastroduodenoscopy (EGD) Hx of arthroscopy of knee Hx of arthroscopy of right knee Social History Social History Household Members: Unknown / Unable to assess Household Members Other:: SISTER Housing: Apartment Do you presently have visiting nurse or other home services: Yes Unable to assess alcohol history related to: Unable to respond and Unknown Alcohol intake: never Patient Tobacco Use Status: Never used Tobacco e-Cigarette/Vaping Use: Never Used Second Hand Smoke Exposure: Yes (HISTORY OF SECOND HAND SMOKE EXPOSURE) Advance Directives Date on File: 05/05/20 service: No Current occupational status: disabled Current occupation: right handed Cognitive needs: No Hearing needs: No Vision needs: No Meds Allergies Allergy/AdvReac Type Severity Reaction Status Date / Time cephalexin [From KEFLEX] Allergy Mild ITCHY Verified 05/31/22 14:14 THROAT lisinopril [LISINOPRIL] Allergy Unknown SWELLING Verified 05/31/22 14:14 COUGH Active Medications: Current Medications Acetaminophen (Acetaminophen 325 Mg Tablet) 650 mg PO Q6H PRN PRN Reason: Pain, Moderate(Pain Scale 4-6) Last Admin: 07/31/22 23:58 Dose: 650 mg Bacitracin (Bacitracin Oint 14 Gm Tube) 1 appl TOPICAL BID RADHA; Protocol Furosemide (Furosemide 40 Mg Tablet) 40 mg PO DAILY RADHA; Protocol Last Admin: 08/01/22 08:07 Dose: 40 mg Heparin Sodium (Porcine) (Heparin Sodium,Porcine 5,000 Unit/Ml Vial) 5,000 unit SUBCUT Q8H RADHA Last Admin: 08/02/22 00:09 Dose: 5,000 unit Hydralazine HCl (Hydralazine Hcl 50 Mg Tablet) 50 mg PO QID PRN; Protocol PRN Reason: SBP>190 Last Admin: 07/30/22 19:25 Dose: 50 mg Hydralazine HCl (Hydralazine Hcl 50 Mg Tablet) 100 mg PO TID RADHA; Protocol Last Admin: 08/02/22 08:40 Dose: Not Given Vancomycin HCl 1,500 mg/ (Sodium Chloride) 500 mls @ 333.333 mls/hr IV PREOP ONE Stop: 08/02/22 16:10 Sodium Chloride (Ns) 1,000 mls @ 50 mls/hr IVCONT .Q20H RADHA Insulin Human Lispro (Insulin Lispro 100 Unit/Ml 3 Ml Vial) 0 unit SUBCUT QIDACHS RADHA; Protocol Last Admin: 08/02/22 08:39 Dose: Not Given Isosorbide Mononitrate (Isosorbide Mononitrate 30 Mg Tab.Er.24h) 30 mg PO DAILY RADHA; Protocol Last Admin: 08/01/22 08:06 Dose: 30 mg Labetalol HCl (Labetalol Hcl 100 Mg Tablet) 300 mg PO BID RADHA; Protocol Nifedipine (Nifedipine Er 60 Mg Tab.Er.24) 60 mg PO BEDTIME RADHA; Protocol Last Admin: 08/01/22 20:37 Dose: 60 mg Pharmacy Consult (Consult Rx Perform Med Rec) 1 each MISCELLANE ONCE PRN PRN Reason: Consult order Pharmacy Consult (Consult Rx Vancomycin Dosing) 1 each MISCELLANE DAILY PRN PRN Reason: Consult order Trazodone HCl (Trazodone Hcl 50 Mg Tablet) 150 mg PO BEDTIME PRN PRN Reason: Insomnia Last Admin: 08/01/22 20:38 Dose: 150 mg Home Medications Medication Instructions Recorded Confirmed Last Taken Type venlafaxine 150 mg 150 mg PO DAILY 10/30/21 07/26/22 07/21/22 09:00 History capsule,extended release 24 hr multivitamin with folic acid 400 1 tab PO DAILY 03/06/22 07/26/22 07/21/22 09:00 History mcg tablet (Tab-A-George) pen needle, diabetic 32 gauge x #50 ea 03/06/22 06/02/22 Unknown History 06/14 (Ultracare Pen Needle) bupropion HCl 150 mg 24 hr tablet, 150 mg PO DAILY 05/16/22 07/26/22 07/21/22 09:00 History extended release insulin aspart U-100 100 unit/mL 14 unit subcut TIDAC 05/16/22 07/26/22 07/21/22 18:00 History (3 mL) subcutaneous pen (Novolog FlexPen U-100 Insulin aspart) insulin glargine U-300 conc 300 70 unit subcut DAILY 05/16/22 07/26/22 07/21/22 09:00 History unit/mL (3 mL) subcutaneous pen (Toujeo Max U-300 SoloStar) meclizine 25 mg tablet 25 mg PO Q6H PRN Dizziness 05/16/22 07/26/22 06/18/22 History trazodone 150 mg tablet 150 mg PO BEDTIME 05/16/22 07/26/22 07/20/22 History Physical Exam Vital Signs: Vital Signs: Last Vital Signs Temp 97.7 F 08/02/22 09:04 Pulse 99 08/02/22 09:04 Resp 17 08/02/22 09:04 BP 196/87 H 08/02/22 09:04 Pulse Ox 97 08/02/22 09:04 O2 Del Method Room Air 08/02/22 09:04 O2 Flow Rate 2 07/29/22 13:04 FiO2 30 07/27/22 11:00 BMI result Body Mass Index 35.3 Chest: Other: Chest breath sounds bilaterally, HS 1 and 2. GI: Other: Abdomen soft, corpulent, benign Results Labs 07/30/22 08:45 08/02/22 06:39 Labs: Abnormal lab results 08/01/22 08/01/22 08/01/22 Range/Units 11:38 15:03 19:50 Chloride (96-108) mmol/L Carbon Dioxide (22-29) mmol/L BUN (9-16) mg/dL Creatinine (0.5-1.4) mg/dL POC Glucose 244 H 260 H 228 H (60-115) mg/dL Random Glucose (60-115) mg/dL 08/02/22 08/02/22 Range/Units 06:39 07:22 Chloride 109 H (96-108) mmol/L Carbon Dioxide 20 L (22-29) mmol/L BUN 30 H (9-16) mg/dL Creatinine 2.07 H (0.5-1.4) mg/dL POC Glucose 200 H (60-115) mg/dL Random Glucose 197 H (60-115) mg/dL BMP 08/02/22 06:39 Sodium 141 Potassium 3.9 Chloride 109 H Carbon Dioxide 20 L BUN 30 H Creatinine 2.07 H Calcium 9.6 Urine 07/26/22 Range/Units 17:58 Urine Color Yellow Urine Appearance Clear Urine pH 5.5 (5.0-9.0) Ur Specific [place] <= 1.005 (1.005-1.025) Urine Protein 100 (2+) H (Neg-Trace) mg/dL Urine Glucose (UA) Negative (Negative) mg/dL All other labs normal. Assessment and Plan (1) Symptomatic bradycardia: Status: Acute Plan Current plan is to arrange for permanent pacemaker placement on 08/02/2022. Risks, benefits, alternatives of procedure reviewed with the patient and included but not limited to bleeding, infection, pneumothorax, lead dislodgement, numbness, pain, scarring and the patient wishes to proceed. Arrangements were made for this. Time Spent With Patient Time: Total time managing care of this patient today ____ minutes. Procedures Date of Service Date of Service: 08/01/22
[2022-08-02 09:32] LABS: Glucose, Whole Blood 219 mg/dL (60-115)
--- NOTE | 2022-08-02 11:52 | W.PM.OPN ---
Operative Note Operative Note Date of Service: 08/02/22 Narrative: Preoperative diagnosis: [] Symptomatic bradycardia Postop diagnosis: [] Same Procedure [] dual chamber permanent pacemaker placement with fluoroscopy Surgeon: [] [employer] Supervisor: [] Type of Anesthesia: [] MAC Indication for surgery: [] Symptomatic cardiac dysrhythmia of bradycardia. For specifics of pacemaker settings and data, please refer to [facility] [employer] worksheet Findings: [] Patient brought to operating room, placed on the operating table in a supine position, and after an adequate level of MAC anesthesia was induced, the right left chest and neck areas were prepped and draped in usual sterile fashion. Patient had a shoulder roll placed, he was then positioned in Trendelenburg, and with the right arm pulled inferiorly, after local infiltration of 0.5% Marcaine with 1% lidocaine, he underwent uneventful cannulation of the right subclavian vein using Seldinger technique. A wire was advanced to the level of superior vena cava under fluoroscopic guidance. Pocket was fashioned using electro Bovie and digital dissection. Dilating sheath was then placed over the wire which was retained and the initial ventricular lead was advanced into position with good sensing and capture. This was confirmed both by his [facility] rep and radiographically. Next the peel-away sheath was uneventfully removed and then over the retained wire, a 2nd dilating sheath was placed with atrial lead under fluoroscopic guidance again position with good sensing and capture. Dilating sheath was then removed. These leads were once again recheck for sensing and capture with very good parameters as well as for maintained positioning fluoroscopically. With leads with good position and adequate heals, they were secured in place using 2-0 silk sutures x2 over the retaining flange respectively. Leads were then connected to a generator were each was screwed in and secured and placed in the pocket with coil of redundant lead beneath the generator. Wound was irrigated, secured hemostasis, and closed using interrupted inverted dermal 3-0 Vicryl sutures followed by Steri-Strips and sterile dressings. Postprocedure film obtained in the OR with demonstrated no pneumothorax and leads in good position. Device was once again interrogated prior to leaving with appropriate sensing and capturing. Sponge, needle, and instrument counts were reported correct. Patient tolerated procedure well emerged anesthesia stable condition. EBL minimal.
--- NOTE | 2022-08-02 12:34 | P.PNIM_ITS ---
Subjective Subjective Date of Service: 08/03/22 Interval History: Seen and evaluated this morning Feels better overall PPM placement today BP readings elevated, No more episodes of bradycardia No other overnight events Review of Systems Review of Systems: Yes all other systems are reviewed and are negative Physical Exam Vital Signs: Vital Signs: Last Vital Signs Temp 98.6 F 08/02/22 12:19 Pulse 82 08/02/22 12:19 Resp 14 08/02/22 12:19 BP 171/81 H 08/02/22 12:19 Pulse Ox 96 08/02/22 12:19 O2 Del Method Room Air 08/02/22 12:19 O2 Flow Rate 2 07/29/22 13:04 FiO2 30 07/27/22 11:00 BMI result Body Mass Index 35.3 Const: Other: Constitutional : Awake, interactive, not in distress Neck : Normal inspection, Supple Cardiovascular : RRR, no JVP, no lower extremity edema, PPM in place with no erythema or bleeding Respiratory : good bilateral air entry,? no crackles, wheezes or rhonchi Gastrointestinal:? soft, lax, Normal bowel sounds, Non tender Skin : Warm, Dry, right elbow bulla shrinking in size with no erythema or drainage Neurological : Alert & oriented x3, No focal deficit Objective Data Active Medications Acetaminophen (Acetaminophen 325 Mg Tablet) 650 mg PO Q6H PRN PRN Reason: Pain, Moderate(Pain Scale 4-6) Last Admin: 07/31/22 23:58 Dose: 650 mg Documented By: COLTON Bacitracin (Bacitracin Oint 14 Gm Tube) 1 appl TOPICAL BID RADHA; Protocol Furosemide (Furosemide 40 Mg Tablet) 40 mg PO DAILY RADHA; Protocol Last Admin: 08/01/22 08:07 Dose: 40 mg Documented By: KYLIE Heparin Sodium (Porcine) (Heparin Sodium,Porcine 5,000 Unit/Ml Vial) 5,000 unit SUBCUT Q8H RADHA Last Admin: 08/02/22 00:09 Dose: 5,000 unit Documented By: MARCIE Hydralazine HCl (Hydralazine Hcl 50 Mg Tablet) 50 mg PO QID PRN; Protocol PRN Reason: SBP>190 Last Admin: 07/30/22 19:25 Dose: 50 mg Documented By: COLTON Hydralazine HCl (Hydralazine Hcl 50 Mg Tablet) 100 mg PO TID RADHA; Protocol Last Admin: 08/02/22 08:40 Dose: Not Given Documented By: KYLIE Non-Admin Reason: Off Unit: Surgery Vancomycin HCl 1,500 mg/ (Sodium Chloride) 500 mls @ 333.333 mls/hr IV PREOP ONE Stop: 08/02/22 16:10 Sodium Chloride (Ns) 1,000 mls @ 50 mls/hr IVCONT .Q20H [facility] Insulin Human Lispro (Insulin Lispro 100 Unit/Ml 3 Ml Vial) 0 unit SUBCUT QIDACHS [facility]; Protocol Last Admin: 08/02/22 08:39 Dose: Not Given Documented By: KYLIE Non-Admin Reason: NPO Comments: pt NPO for procedure - off unit Isosorbide Mononitrate (Isosorbide Mononitrate 30 Mg Tab.Er.24h) 30 mg PO DAILY [facility]; Protocol Last Admin: 08/01/22 08:06 Dose: 30 mg Documented By: KYLIE Labetalol HCl (Labetalol Hcl 100 Mg Tablet) 300 mg PO BID [facility]; Protocol Nifedipine (Nifedipine Er 60 Mg Tab.Er.24) 60 mg PO BEDTIME [facility]; Protocol Last Admin: 08/01/22 20:37 Dose: 60 mg Documented By: MARCIE Ondansetron HCl (Ondansetron Hcl 4 Mg/2 Ml Vial) 4 mg IVPUSH ONCE PRN PRN Reason: Nausea and Vomiting Pharmacy Consult (Consult Rx Perform Med Rec) 1 each MISCELLANE ONCE PRN PRN Reason: Consult order Pharmacy Consult (Consult Rx Vancomycin Dosing) 1 each MISCELLANE DAILY PRN PRN Reason: Consult order Trazodone HCl (Trazodone Hcl 50 Mg Tablet) 150 mg PO BEDTIME PRN PRN Reason: Insomnia Last Admin: 08/01/22 20:38 Dose: 150 mg Documented By: MARCIE Labs 07/30/22 08:45 08/02/22 06:39 Labs: Laboratory Results - last 24 hr 08/01/22 08/01/22 08/02/22 15:03 19:50 06:39 PT INR Anion Gap 16 Estim Creat Clear Calc 48.3 Estimated GFR 33 POC Glucose 260 H 228 H Random Glucose 197 H Calcium 9.6 Blood Type Antibody Screen 08/02/22 08/02/2223 06:39 07:17 07:22 PT 11.9 INR 1.0 Anion Gap Estim Creat Clear Calc Estimated GFR POC Glucose 200 H Random Glucose Calcium Blood Type O Positive Antibody Screen NEGATIVE 08/02/22 09:29 PT INR Anion Gap Estim Creat Clear Calc Estimated GFR POC Glucose 219 H Random Glucose Calcium Blood Type Antibody Screen Assessment and Plan (1) Labile hypertension: Status: Acute (2) Acute bullous dermatitis: Status: Acute (3) Symptomatic bradycardia: Status: Acute Plan 56-year-old gentleman with underlying obesity, hypertension, diabetes mellitus, CKD stage 3-4,? depression/conversion disorder admitted to icu for symptomatic hyotension and bradycardia complciated by acute hypoxic respiratory failure requiring intubation. now extubated and down to 2L nc. acute hypoxic respiratory failure s/p extubation resolved symptomatic hypotension, bradycardia on admission due to medication, hypovolemia and autonomous dysfunction now hypertensive, restarted full home meds of Imdur, Hydralazine and Labetalol alonog with 60 mg Nifedipine Cardiology input appreciated, PPM placement nephro following thoracic surgery placement of PPM today LEDA on CKD IV due to hypotension, hypovolemia now at baseline skin bulla seems likely from extracasation with no evidence of DVT on US local care DM insulin hfpef diuretics on hold depression meds on hold obesity GARCIA weight loss dvt prophylaxis - hep sq full code reason for continued hospitalization:labile bps for PPM placement Time Spent With Patient Time: Total time managing care of this patient today ____ minutes. Quality Stroke Does the patient have a stroke diagnosis?: No VTE Prior VTE?: No VTE Risk Level:: Medical - moderate - high VTE Device Contraindication: N/A - Device Ordered VTE Drug Contraindication: N/A - Med Ordered
[2022-08-02 12:36] LABS: Glucose, Whole Blood 238 mg/dL (60-115)
[2022-08-02] MEDS: Insulin Lispro 100 UNIT/ML 3 ML VIAL SUBCUT ×3 (12:39→21:01)
[2022-08-02] MEDS: Bacitracin Oint 14 GM TUBE 1 APPL TOPICAL ×2 (12:39→21:02)
[2022-08-02] MEDS: Isosorbide Mononitrate 30 MG TAB.ER.24H PO (12:39)
[2022-08-02] MEDS: Furosemide 40 MG TABLET PO (12:39)
[2022-08-02] MEDS: 0.9 % Sodium Chloride 1,000 ML 50 ML IVCONT (12:43)
[2022-08-02 15:49] LABS: Glucose, Whole Blood 279 mg/dL (60-115)
[2022-08-02] MEDS: hydrALAZINE HCl 50 MG TABLET 100 MG PO ×2 (16:13→21:01)
--- NOTE | 2022-08-02 16:55 | PM.PNCARD ---
Subjective Subjective Date of Service: 08/02/22 Principal diagnosis: junctional bradycardia, labile blood pressure. Interval history: Patient status post dual-chamber pacemaker. Some discomfort at the pacer site. Blood pressure is adequate. Denies any lightheadedness, syncope. No cardiac arrhythmias. Review of Systems Review of Systems Yes all other systems are reviewed and are negative Physical Exam Vital Signs: Last Vital Signs Temp 98.7 F 08/02/22 15:26 Pulse 86 08/02/22 15:26 Resp 18 08/02/22 15:26 BP 146/64 H 08/02/22 15:26 Pulse Ox 95 08/02/22 15:26 O2 Del Method Room Air 08/02/22 15:26 O2 Flow Rate 2 07/29/22 13:04 FiO2 30 07/27/22 11:00 BMI result Body Mass Index 35.3 Const General: cooperative, comfortable, no acute distress, alert and awake Nutritional Appearance: obese Orientation/consciousness: patient oriented x3 Neck Neck: Yes trachea midline, Yes supple and Yes no JVD Chest Chest palpation & inspection: other (Pacer pocket appears benign) Resp Effort & Inspection: normal respiratory effort Auscultation: clear to auscultation bilaterally Cardio Jugular venous distension: no JVD Palpation: normal PMI Rate: regular rate Rhythm: regular rhythm Heart sounds: S1 normal heart sound present, S2 normal heart sound present, no click, no gallops and no murmurs GI Auscultation: normal bowel sounds Skin General skin exam: no rashes or lesions noted Neuro General: patient oriented x3 and no focal motor deficits Objective Labs and Meds 07/30/22 08:45 08/02/22 06:39 Lab results: Laboratory Results - last 24 hr 08/01/22 08/02/22 08/02/22 19:50 06:39 06:39 PT 11.9 INR 1.0 Sodium 141 Potassium 3.9 Chloride 109 H Carbon Dioxide 20 L Anion Gap 16 BUN 30 H Creatinine 2.07 H Estim Creat Clear Calc 48.3 Estimated GFR 33 POC Glucose 228 H Random Glucose 197 H Calcium 9.6 Blood Type Antibody Screen 08/02/22 08/02/22 08/02/22 07:17 07:22 09:29 PT INR Sodium Potassium Chloride Carbon Dioxide Anion Gap BUN Creatinine Estim Creat Clear Calc Estimated GFR POC Glucose 200 H 219 H Random Glucose Calcium Blood Type O Positive Antibody Screen NEGATIVE 08/02/22 08/02/22 12:33 15:23 PT INR Sodium Potassium Chloride Carbon Dioxide Anion Gap BUN Creatinine Estim Creat Clear Calc Estimated GFR POC Glucose 238 H 279 H Random Glucose Calcium Blood Type Antibody Screen Imaging Radiologist's impression: Impressions Chest X-Ray 08/02/22 09:33 IMPRESSION: No acute cardiopulmonary process. Progress Note: A&P Assessment and plan (1) Symptomatic bradycardia: Status: Acute Assessment and Plan: Symptomatic bradycardia with evidence of sinoatrial node dysfunction with junctional bradycardia and hypotension on labetalol therapy. Patient status post dual-chamber pacemaker. This should help with his management of blood pressure. Will check pacemaker tomorrow and follow-up as outpatient in 6 weeks time. (2) Labile hypertension: Status: Acute Assessment and Plan: Significant labile blood pressure most likely related to autonomic dysfunction. Required lipid sotalol therapy in the past for better blood pressure control. Status post dual-chamber pacemaker. Resume labetalol at 100 mg b.i.d.. Continue monitor blood pressure closely. Will sign of the case at this point time and follow-up as outpatient. Thank you for allowing me to partake in his care Time Spent With Patient Time: Total time managing care of this patient today ____ minutes. Progress Note: Quality Stroke Does the patient have a stroke diagnosis?: No Procedures Date of Service Date of Service: 08/02/22
[2022-08-02 20:20] LABS: Glucose, Whole Blood 192 mg/dL (60-115)
[2022-08-02] MEDS: NIFEdipine ER 60 MG TAB.ER.24 PO (21:01)
[2022-08-02] MEDS: Labetalol HCL 100 MG TABLET 300 MG PO (21:01)
[2022-08-02] MEDS: traZODone HCL 50 MG TABLET 150 MG PO (21:02)
[2022-08-03] VITALS (12 sets, daily range): BP systolic 148–184; BP diastolic 40–84; PULSE 68–92; RESP 16–20; TEMP 36.4–37.2; O2SAT 94–98
[2022-08-03] MEDS: hydrALAZINE HCl 50 MG TABLET PO (03:17)
[2022-08-03] MEDS: 0.9 % Sodium Chloride 1,000 ML 50 ML IVCONT (03:18)
[2022-08-03 07:28] LABS: Hematocrit 26.5 % (42.0-52.0); Mean Corpuscular Hemoglobin 29.6 pg (27.0-33.0); Mean Corpuscular Volume 87.2 fL (80.0-98.0); Mean Platelet Volume 10.1 fL (9.4-12.4); Platelet Count 258 X10*3/uL (160-400); Red Blood Count 3.04 X10*6/uL (4.60-5.80); Red Cell Distribution Width 12.7 % (11.0-16.0); White Blood Count 10.5 X10*3/uL (4.8-10.8)
[2022-08-03 07:40] LABS: Anion Gap 16 (12-20); Blood Urea Nitrogen 33 mg/dL (9-16); Calcium 8.8 mg/dL (8.4-10.2); Carbon Dioxide 21 mmol/L (22-29); Chloride 106 mmol/L (96-108); Creatinine Clr Calc Pharmacy 48.6; Estimated Glomerular Filt Rate 34; Glucose Random 207 mg/dL (60-115); Sodium 139 mmol/L (135-145)
[2022-08-03 07:47] LABS: Glucose, Whole Blood 211 mg/dL (60-115)
[2022-08-03] MEDS: Insulin Lispro 100 UNIT/ML 3 ML VIAL SUBCUT ×4 (08:14→21:43)
[2022-08-03] MEDS: hydrALAZINE HCl 50 MG TABLET 100 MG PO ×3 (08:15→21:43)
[2022-08-03] MEDS: Labetalol HCL 100 MG TABLET 300 MG PO ×2 (08:15→21:44)
[2022-08-03] MEDS: Furosemide 40 MG TABLET PO (08:15)
[2022-08-03] MEDS: Isosorbide Mononitrate 30 MG TAB.ER.24H PO (08:15)
[2022-08-03] MEDS: Bacitracin Oint 14 GM TUBE 1 APPL TOPICAL ×2 (08:16→21:44)
--- NOTE | 2022-08-03 10:05 | PM.PNCARD ---
Subjective Subjective Date of Service: 08/03/22 Principal diagnosis: junctional bradycardia, labile blood pressure. Interval history: Patient continues to markedly elevated blood pressure. Says he is slightly anxious because of the pacemaker. Overall otherwise no issues. Pacemaker is functioning well. Review of Systems Review of Systems Yes all other systems are reviewed and are negative Physical Exam Vital Signs: Last Vital Signs Temp 99.0 F 08/03/22 07:45 Pulse 92 08/03/22 07:45 Resp 20 08/03/22 07:45 BP 180/80 H 08/03/22 07:45 Pulse Ox 95 08/03/22 07:45 O2 Del Method Room Air 08/03/22 07:45 O2 Flow Rate 2 07/29/22 13:04 FiO2 30 07/27/22 11:00 BMI result Body Mass Index 35.3 Const General: cooperative, comfortable, no acute distress, alert and awake Nutritional Appearance: obese Orientation/consciousness: patient oriented x3 Neck Neck: Yes trachea midline, Yes supple and Yes no JVD Chest Chest palpation & inspection: other (Pacer pocket appears benign) Resp Effort & Inspection: normal respiratory effort Auscultation: clear to auscultation bilaterally Cardio Jugular venous distension: no JVD Palpation: normal PMI Rate: regular rate Rhythm: regular rhythm Heart sounds: S1 normal heart sound present, S2 normal heart sound present, no click, no gallops and no murmurs GI Auscultation: normal bowel sounds Skin General skin exam: no rashes or lesions noted Neuro General: patient oriented x3 and no focal motor deficits Objective Labs and Meds 08/03/22 06:53 08/03/22 06:53 Lab results: Laboratory Results - last 24 hr 08/02/22 08/02/22 08/02/22 12:33 15:23 20:16 WBC RBC Hgb Hct MCV MCH MCHC RDW Plt Count MPV Absolute Nucleated RBC Nucleated RBC % (auto) Sodium Potassium Chloride Carbon Dioxide Anion Gap BUN Creatinine Estim Creat Clear Calc Estimated GFR POC Glucose 238 H 279 H 192 H Random Glucose Calcium 08/03/22 08/03/22 08/03/22 06:53 06:53 07:41 WBC 10.5 RBC 3.04 L Hgb 9.0 L Hct 26.5 L MCV 87.2 MCH 29.6 MCHC 34.0 RDW 12.7 Plt Count 258 MPV 10.1 Absolute Nucleated RBC 0.000 Nucleated RBC % (auto) 0.0 Sodium 139 Potassium 4.0 Chloride 106 Carbon Dioxide 21 L Anion Gap 16 BUN 33 H Creatinine 2.06 H Estim Creat Clear Calc 48.6 Estimated GFR 34 POC Glucose 211 H Random Glucose 207 H Calcium 8.8 D Progress Note: A&P Assessment and plan (1) Labile hypertension: Status: Acute Assessment and Plan: patient with persistent significant elevated blood pressure with prior history of labile blood pressure. Not sure if this is driven by anxiety. However he is on multiple high-dose medications. Add minoxidil 2.5 mg to his regimen. Get renal duplex to rule out any significant renal artery stenosis driving his blood pressure. Further treatment based on the findings of renal duplex. Discussed with him about stress mitigation anxiety reduction. He understands. (2) Cardiac pacemaker in situ: Status: Acute Assessment and Plan: Cardiac pacemaker in-situ for symptomatic bradycardia and hypertension on admission. This has not resolved with pacemaker therapy. Pacemaker is working well. Continue maximize labetalol, currently already on 300 mg b.i.d. of labetalol. If blood pressure remains difficult control can add clonidine to his regimen as well. Will continue to follow with him. Time Spent With Patient Time: Total time managing care of this patient today ____ minutes. Progress Note: Quality Stroke Does the patient have a stroke diagnosis?: No Procedures Date of Service Date of Service: 08/03/22
--- NOTE | 2022-08-03 11:26 | MHC.CM.PN ---
Patient is not yet medically cleared for dc (BP control); Home/resume services is the goal and CM will continue to follow.
[2022-08-03] MEDS: minoxidiL 2.5 MG TABLET PO ×2 (11:47→21:43)
[2022-08-03 11:56] LABS: Glucose, Whole Blood 277 mg/dL (60-115)
--- NOTE | 2022-08-03 12:26 | P.DS_ITS ---
DS: Providers Provider Date of Service: 08/04/22 Date of admission: 07/26/22 15:56 Primary care physician: Sarthak Spencer MD Consults: 07/28/22 07:33 Consult to Nephrology Routine Consulting Provider: Jos Stevenson Reason for consultation: CKDIV very labile BP 07/31/22 13:40 Consult to General Surgery Routine Consulting Provider: [facility] [place] [facility] General Surgeons Reason for consultation: RUE bullae 08/01/22 08:07 Consult to Cardiology Routine Consulting Provider: [facility] [place] Cardiovascular Services Reason for consultation: Recurrent ICU admit w Hypotension, med review, symptomatic bradycardia 08/01/22 12:23 Consult to Thoracic Surgery Routine Consulting Provider: Figueroa Jason Reason for consultation: PPM placement for symptomatic bradycardia DS: Diagnosis Discharge Diagnosis (1) Labile hypertension: Status: Acute (2) Acute bullous dermatitis: Status: Acute (3) Symptomatic bradycardia: Status: Acute (4) Cardiac pacemaker in situ: Status: Acute (5) Acute hypotension: Status: Acute (6) Junctional rhythm: Status: Acute (7) Acidosis, lactic: Status: Acute (8) Acute hyperkalemia: Status: Acute (9) Pulmonary edema: Status: Acute (10) Acute respiratory failure with hypoxia: Status: Acute (11) Metabolic acidosis: Status: Acute (12) Acute on chronic kidney failure: Status: Acute DS: Summary Hospital Course Hospital Course: The patient had prolonged hospital stay, for full details please return to EMR. Admission note HPI ?56-year-old gentleman with underlying obesity, hypertension, diabetes mellitus, CKD stage 3-4,? depression/conversion disorder? being admitted for symptomatic bradycardia and acute on chronic kidney failure with hyperkalemia and metabolic acidosis. patient has recently been discharged from [facility] after being treated for pneumonia and acute kidney injury with increase in his antihypertensive regimen.? He has started on IV fluids with no improvement in urine output or blood pressure in emergency room? and thereafter admitted to intensive care unit for further workup and management. Hospital course 56-year-old gentleman with underlying obesity, hypertension, diabetes mellitus, CKD stage 3-4,? depression/conversion disorder admitted to icu for symptomatic hyotension and bradycardia complciated by acute hypoxic respiratory failure requiring intubation. treated with lasix with good response for fluid overload. weaned down O2 supplement to room air as he was able to ambulate with no dyspnea. He was noted to have symptomatic hypotension, bradycardia on admission believed to be due to medication, hypovolemia and autonomous dysfunction. evaluated by corn popper who recommended placement of PPM as the patient needs many medications for blood pressure control. Blood pressure increased after transfer out of ICU to high readings, he was restarted full home meds of Imdur, Hydralazine and Labetalol alonog with 120 mg Nifedipine with fair effect but remained elevated. Cardio suggested starting Minoxidil bid. He will be followed by nephrology as outpatient. Thoracic surgery placed of PPM with no overt bleeding or recurrence of bradycardia events. Noted to be in LEDA on CKD IV at presentation due to hypotension, hypovolemia. Improved back to baseline. developed skin bulla which seems likely from extravasation with no evidence of DVT on US. improved with local care. Discharge plan Discontinue Torsemide, started Lasix 40 mg daily Start Minoxidil 2.5 mg twice daily Monitor blood pressure readings for next week and report them to PCP\tiger machine operator for further adjustments of home medications To follow with cardiology as outpatient. Time Spent with Patient Time attestation: Total time managing care of this patient today ____ minutes. Discharge coordination time: Greater than 30 minutes Quality: Safe Use of Opioids Does Pt have an Active Cancer Diagnosis on the Problem List?: No Quality: Stroke Does the patient have a stroke diagnosis?: No Physical Exam Vital Signs: Vital Signs: Last Vital Signs Temp 97.7 F 08/03/22 11:34 Pulse 74 08/03/22 11:34 Resp 20 08/03/22 11:34 BP 176/84 H 08/03/22 11:34 Pulse Ox 94 08/03/22 11:34 O2 Del Method Room Air 08/03/22 11:34 O2 Flow Rate 2 07/29/22 13:04 FiO2 30 07/27/22 11:00 BMI result Body Mass Index 35.3 Const: Other: Constitutional : Awake, interactive, not in distress Neck : Normal inspection, Supple Cardiovascular : RRR, no JVP, no lower extremity edema, PPM in place with no erythema or bleeding Respiratory : good bilateral air entry,? no crackles, wheezes or rhonchi Gastrointestinal:? soft, lax, Normal bowel sounds, Non tender Skin : Warm, Dry, right elbow bulla shrinking in size with no erythema or drainage Neurological : Alert & oriented x3, No focal deficit DS: Data Data Completed and Pending Labs on day of discharge: Laboratory Results - last 24 hr 08/02/22 08/02/22 08/02/22 12:33 15:23 20:16 WBC RBC Hgb Hct MCV MCH MCHC RDW Plt Count MPV Absolute Nucleated RBC Nucleated RBC % (auto) Sodium Potassium Chloride Carbon Dioxide Anion Gap BUN Creatinine Estim Creat Clear Calc Estimated GFR POC Glucose 238 H 279 H 192 H Random Glucose Calcium 08/03/22 08/03/22 08/03/22 06:53 06:53 07:41 WBC 10.5 RBC 3.04 L Hgb 9.0 L Hct 26.5 L MCV 87.2 MCH 29.6 MCHC 34.0 RDW 12.7 Plt Count 258 MPV 10.1 Absolute Nucleated RBC 0.000 Nucleated RBC % (auto) 0.0 Sodium 139 Potassium 4.0 Chloride 106 Carbon Dioxide 21 L Anion Gap 16 BUN 33 H Creatinine 2.06 H Estim Creat Clear Calc 48.6 Estimated GFR 34 POC Glucose 211 H Random Glucose 207 H Calcium 8.8 D 08/03/22 11:38 WBC RBC Hgb Hct MCV MCH MCHC RDW Plt Count MPV Absolute Nucleated RBC Nucleated RBC % (auto) Sodium Potassium Chloride Carbon Dioxide Anion Gap BUN Creatinine Estim Creat Clear Calc Estimated GFR POC Glucose 277 H Random Glucose Calcium Imaging Chest x-ray: Radiologist's impression: ITS Impressions Chest X-Ray 07/26/22 14:30 IMPRESSION: Low lung volumes. Reticular coarse pattern in the lungs may well be due to poor expansion of the lung delcid. Reticular infiltrates would need to be considered. Element of pulmonary edema cannot be excluded. Recommend PA and lateral films when the patient is able Chest X-Ray 07/26/22 17:10 IMPRESSION: 1. New endotracheal tube tip is 1.4 cm above the steven. 2. Patchy bilateral infiltrates slightly worse from 07/26/2022 at 2:27 PM. Chest X-Ray 07/26/22 18:29 IMPRESSION: 1. New enteric tube tip is below diaphragm in stomach. The endotracheal tube is in good position. 2. Patchy opacity in both lung bases, some improvement from 07/26/2022. Chest X-Ray 07/26/22 20:29 IMPRESSION: 1. Interval placement of a dual-lumen right-sided central venous catheter with the tip in the region of the SVC. 2. Endotracheal tube with its tip approximately 3.2 cm proximal to the steven. Enterogastric tube in appropriate position. 3. Patchy bilateral airspace opacities, similar when compared to the prior examination. Venous Duplex 07/28/22 13:01 IMPRESSION: No DVT demonstrated in the right upper extremity. Chest X-Ray 08/02/22 09:33 IMPRESSION: No acute cardiopulmonary process. Discharge Plan Discharge Anticipated Discharge Date/Time: 08/03/22 12:06 Patient Disposition: Home Health Service Discharge Diagnosis: Symptomatic bradycardia elevated blood pressure Pulmonary edema acute kidney injury Referrals: [facility] [Outside] - 1 Week Sarthak Spencer MD [Primary Care Provider] - 1 Week Discharge Medications: New furosemide 40 mg Tablet 40 mg PO DAILY Qty: 30 0RF Protocol: Hold for SBP< HOLD for SBP < : 90 minoxidil 2.5 mg Tablet 2.5 mg PO BID Qty: 60 0RF Continued clonazepam 0.5 mg tablet 0.5 mg PO TID PRN (Reason: anxiety) Qty: 90 5RF (DME) lancets [FreeStyle Lancets] 28 gauge misc See Rx Instructions .MEDSUPPLY Qty: 150 5RF Rx Instructions: 4 times a day cholecalciferol (vitamin D3) [D3-2000] 50 mcg (2,000 unit) capsule 50 mcg PO DAILY Qty: 30 11RF omega-3 acid ethyl esters 1 gram capsule 2 cap PO BID 30 Days Qty: 120 11RF (DME) FreeStyle John 14 Day Sensor Kit See Rx Instructions .Route Qty: 1 0RF Rx Instructions: As directed Tradjenta 5 mg tablet 5 mg PO DAILY 30 Days Qty: 30 6RF gabapentin 300 mg capsule 300 mg PO BID Qty: 60 8RF (DME) blood pressure monitor [Blood Pressure Kit] Kit See Rx Instructions .Route Qty: 1 0RF Rx Instructions: As directed nifedipine 60 mg tablet extended release 24hr 120 mg PO DAILY 90 Days Qty: 180 1RF venlafaxine 150 mg capsule,extended release 24hr 150 mg PO DAILY meclizine 25 mg tablet 25 mg PO Q6H PRN (Reason: Dizziness) trazodone 150 mg tablet 150 mg PO BEDTIME insulin aspart U-100 [Novolog FlexPen U-100 Insulin] 100 unit/mL (3 mL) insulin pen 14 unit subcut TIDAC bupropion HCl 150 mg tablet extended release 24 hr 150 mg PO DAILY Toujeo Max U-300 SoloStar 300 unit/mL (3 mL) insulin pen 70 unit subcut DAILY Rx Instructions: in the morning isosorbide mononitrate 30 mg tablet extended release 24 hr 30 mg PO DAILY Qty: 30 0RF hydralazine 100 mg tablet 100 mg PO TID 14 Days Qty: 42 0RF (DME) Blood Pressure Cuff Misc See Rx Instructions .Route Qty: 1 0RF Rx Instructions: As directed multivitamin with folic acid [Tab-A-George] 400 mcg tablet 1 tab PO DAILY (DME) pen needle, diabetic [Ultracare Pen Needle] 32 gauge x 3/16 needle See Rx Instructions .ROUTE .MEDSUPPLY Qty: 50 Rx Instructions: As directed famotidine 20 mg tablet 20 mg PO BID Qty: 180 8RF metoclopramide HCl 5 mg tablet 5 mg PO QID Qty: 360 2RF simethicone 180 mg capsule 180 mg PO TID Qty: 90 1RF labetalol 300 mg tablet 300 mg PO BID Qty: 60 3RF (DME) pen needle, diabetic [BD Kacey 2nd Gen Pen Needle] 32 gauge x 5/32 needle See Rx Instructions .MEDSUPPLY Qty: 400 6RF Rx Instructions: 5 times a day Discontinued torsemide 20 mg tablet 20 mg PO Q2D Qty: 30 0RF Discharge Orders: Discharge Order (Routine); Ordered 08/04/22 Ordered By: Erica Peres Diet: Low salt diet Activity on Discharge: As tolerated Stand Alone Forms: Patient Portal Discharge page Care Plan Goals: Read below Health Concerns: Read below Plan of Treatment: Read below Assessment: You were admitted to ICU for low blood pressure readings, acute kidney injury and difficulties breathing with slow heart rate requiring intubation and respiratory support. Seen by corn popper who recommended placement of pacemaker which was done on 08/02/22. Blood pressure better controlled with addition of Minoxidil on top of rest of your home meds. Kidney function improved back to baseline as you were started on Furosemide for fluid management as you were followed by kidney specialist. Discontinue Torsemide, started Lasix 40 mg daily Start Minoxidil 2.5 mg twice daily Monitor your blood pressure readings for next week and report them to PCP\tiger machine operator for further adjustments of home medications To follow with cardiology as outpatient.
--- NOTE | 2022-08-03 13:42 | P.F2F_ITS ---
Service Date Service Date: 08/03/22 Encounter Date of encounter: 08/03/22 Reasons for Services Signs and symptoms assessed: Heart failure exacerbation Elevated BP readings Reason for intermediate: medication treatment and teach disease management Reason for physical therapy: home safety and mobility Homebound: Leaving the home is medically contraindicated at this time without the asist of a device and/or another person due th the listed conditions above and below. Reason homebound: weakness related to hospital stay Certification: Based on the above findings, I certify that this patient is confined to the home and needs intermittent intermediate care, physical therapy and/or speech therapy, or continues to need occupational therapy. The patient is under my care, and I have initiated the establishment of the plan of care. The patient will be followed by a physician who will periodically review the plan of care. Time Spent With Patient Time: Total time managing care of this patient today ____ minutes.
--- NOTE | 2022-08-03 13:49 | HO.POSTANES ---
Post Anesthesia Evaluation Post Anesthesia Evaluation Vital Signs: Vital Signs Temp Pulse Resp BP Pulse Ox O2 Del Method 08/03/22 10:00 148/72 H 08/03/22 11:34 97.7 F 74 20 176/84 H 94 Room Air 08/03/22 09:50 97 Room Air 08/03/22 07:45 99.0 F 92 20 180/80 H 95 Room Air 08/03/22 04:06 184/73 H 08/03/22 03:46 98.7 F 87 16 97 Room Air Anesthesia: Monitored Mental Status: Awake Pain Control: Satisfactory Nausea/Vomiting: None Hydration: Adequate Anesthesia-Related Issues: No Anes. Related Issues
--- NOTE | 2022-08-03 15:01 | MHC.CM.PN ---
Per MD, Patient will be dc'd to home today with services.Patient is active with Per MUIR, who has been notified of today's dc. CM met with Patient at bedside and addressed IMM with him, providing him with the original and placing a copy on the chart(Patient commented that IMM was in Welsh so CM offered to provide an IMM in Spanish but Patient stated, I don't have a problem with it. )
[2022-08-03 16:26] LABS: Glucose, Whole Blood 194 mg/dL (60-115)
[2022-08-03 20:45] LABS: Glucose, Whole Blood 233 mg/dL (60-115)
--- NOTE | 2022-08-03 21:01 | PM.PNNEP ---
Subjective Subjective Date of Service: 08/03/22 Principal diagnosis: junctional bradycardia, labile blood pressure. Interval history: Seen and evaluated this morning Feels better overall s/p nPPM placement today BP readings elevated No other overnight events Physical Exam Vital Signs: Vital Signs: Last Vital Signs Temp 98 F 08/03/22 19:27 Pulse 90 08/03/22 19:27 Resp 20 08/03/22 19:27 BP 176/40 H 08/03/22 19:27 Pulse Ox 98 08/03/22 19:27 O2 Del Method Room Air 08/03/22 19:27 O2 Flow Rate 2 07/29/22 13:04 FiO2 30 07/27/22 11:00 BMI result Body Mass Index 35.3 Const: Other: Constitutional : Awake, interactive, not in distress Neck : Normal inspection, Supple Cardiovascular : RRR, no JVP, no lower extremity edema, PPM in place with no erythema or bleeding Respiratory : good bilateral air entry,? no crackles, wheezes or rhonchi Gastrointestinal:? soft, lax, Normal bowel sounds, Non tender Skin : Warm, Dry, right elbow bulla shrinking in size with no erythema or drainage Neurological : Alert & oriented x3, No focal deficit Objective Data Labs 08/03/22 06:53 08/03/22 06:53 Labs: Laboratory Results - last 24 hr 08/03/22 08/03/22 08/03/22 06:53 06:53 07:41 WBC 10.5 RBC 3.04 L Hgb 9.0 L Hct 26.5 L MCV 87.2 MCH 29.6 MCHC 34.0 RDW 12.7 Plt Count 258 MPV 10.1 Absolute Nucleated RBC 0.000 Nucleated RBC % (auto) 0.0 Sodium 139 Potassium 4.0 Chloride 106 Carbon Dioxide 21 L Anion Gap 16 BUN 33 H Creatinine 2.06 H Estim Creat Clear Calc 48.6 Estimated GFR 34 POC Glucose 211 H Random Glucose 207 H Calcium 8.8 D 08/03/22 08/03/22 08/03/22 11:38 16:15 20:37 WBC RBC Hgb Hct MCV MCH MCHC RDW Plt Count MPV Absolute Nucleated RBC Nucleated RBC % (auto) Sodium Potassium Chloride Carbon Dioxide Anion Gap BUN Creatinine Estim Creat Clear Calc Estimated GFR POC Glucose 277 H 194 H 233 H Random Glucose Calcium Microbiology Microbiology Results: Microbiology 07/26/22 17:40 Blood - Venous Blood Culture - Final No growth after 5 days. Procedures Date of Service Date of Service: 08/03/22 Assessment & Plan Assessment and plan (1) Acute on chronic kidney failure: Status: Acute (2) Acute hypotension: Status: Acute Plan 56-year-old man with stage IIIB CKD. Recently he had LEDA which has resolved History of hypertension with wide fluctuations in the blood pressure including hypotension on admission. Continue hydralazine 3 times a day max doses Nifedipine as ordered Agree with adding beta ella/labetalol to optimize blood pressure and heart rate. Now pt has a PPM MInoxidil as ordered- CAn increase dose as needed keep him in a negative fluid balance. Monitor serum creatinine. Creatinine is back to baseline. Continue to avoid nephrotoxic agents. Renal USG _ Normal Size symmetric kidneys - No NU. . Continue to hold ADONAY inhibitors and ARB for the time being. Time Spent With Patient Time: Total time managing care of this patient today ____ minutes. Progress Note: Quality Stroke Does the patient have a stroke diagnosis?: No
[2022-08-03] MEDS: NIFEdipine ER 60 MG TAB.ER.24 120 MG PO (21:44)
[2022-08-03] MEDS: traZODone HCL 50 MG TABLET 150 MG PO (21:44)
[2022-08-04 03:58] VITALS: BP 160/70; PULSE 96; RESP 18; TEMP 37.6; O2SAT 95
[2022-08-04 07:30] LABS: Glucose, Whole Blood 202 mg/dL (60-115)
--- NOTE | 2022-08-04 07:38 | P.PNIM_ITS ---
Subjective Subjective Date of Service: 08/03/22 Interval History: Seen and evaluated this morning Feels better overall BP readings elevated, No more episodes of bradycardia waiting US duplex renal arteries No other overnight events Review of Systems Review of Systems: Yes all other systems are reviewed and are negative Physical Exam Vital Signs: Vital Signs: Last Vital Signs Temp 99.7 F 08/04/22 03:58 Pulse 96 08/04/22 03:58 Resp 18 08/04/22 03:58 BP 160/70 H 08/04/22 03:58 Pulse Ox 95 08/04/22 03:58 O2 Del Method Room Air 08/04/22 03:58 O2 Flow Rate 2 07/29/22 13:04 FiO2 30 07/27/22 11:00 BMI result Body Mass Index 35.3 Const: Other: Constitutional : Awake, interactive, not in distress Neck : Normal inspection, Supple Cardiovascular : RRR, no JVP, no lower extremity edema, PPM in place with no erythema or bleeding Respiratory : good bilateral air entry,? no crackles, wheezes or rhonchi Gastrointestinal:? soft, lax, Normal bowel sounds, Non tender Skin : Warm, Dry, right elbow bulla shrinking in size with no erythema or drainage Neurological : Alert & oriented x3, No focal deficit Objective Data Active Medications Acetaminophen (Acetaminophen 325 Mg Tablet) 650 mg PO Q6H PRN PRN Reason: Pain, Moderate(Pain Scale 4-6) Last Admin: 07/31/22 23:58 Dose: 650 mg Documented By: COLTON Bacitracin (Bacitracin Oint 14 Gm Tube) 1 appl TOPICAL BID [facility]; Protocol Last Admin: 08/03/22 21:44 Dose: 1 appl Documented By: ARPAN Furosemide (Furosemide 40 Mg Tablet) 40 mg PO DAILY [facility]; Protocol Last Admin: 08/03/22 08:15 Dose: 40 mg Documented By: BETO Heparin Sodium (Porcine) (Heparin Sodium,Porcine 5,000 Unit/Ml Vial) 5,000 unit SUBCUT Q8H [facility] Last Admin: 08/02/22 00:09 Dose: 5,000 unit Documented By: MARCIE Hydralazine HCl (Hydralazine Hcl 50 Mg Tablet) 50 mg PO QID PRN; Protocol PRN Reason: SBP>190 Last Admin: 08/03/22 03:17 Dose: 50 mg Documented By: MEGAN Hydralazine HCl (Hydralazine Hcl 50 Mg Tablet) 100 mg PO TID [facility]; Protocol Last Admin: 08/03/22 21:43 Dose: 100 mg Documented By: ARPAN Sodium Chloride (Ns) 1,000 mls @ 50 mls/hr IVCONT .Q20H RADHA Last Admin: 08/04/22 00:25 Dose: Not Given Documented By: ARPAN Non-Admin Reason: per report d/c Insulin Human Lispro (Insulin Lispro 100 Unit/Ml 3 Ml Vial) 0 unit SUBCUT QIDACHS [facility]; Protocol Last Admin: 08/03/22 21:43 Dose: 6 unit Documented By: ARPAN Isosorbide Mononitrate (Isosorbide Mononitrate 30 Mg Tab.Er.24h) 30 mg PO DAILY [facility]; Protocol Last Admin: 08/03/22 08:15 Dose: 30 mg Documented By: FOSTEKLisbet Labetalol HCl (Labetalol Hcl 100 Mg Tablet) 300 mg PO BID [facility]; Protocol Last Admin: 08/03/22 21:44 Dose: 300 mg Documented By: ARPAN Minoxidil (Minoxidil 2.5 Mg Tablet) 2.5 mg PO BID [facility] Last Admin: 08/03/22 21:43 Dose: 2.5 mg Documented By: ARPAN Nifedipine (Nifedipine Er 60 Mg Tab.Er.24) 120 mg PO BEDTIME [facility]; Protocol Last Admin: 08/03/22 21:44 Dose: 120 mg Documented By: ARPAN Ondansetron HCl (Ondansetron Hcl 4 Mg/2 Ml Vial) 4 mg IVPUSH ONCE PRN PRN Reason: Nausea and Vomiting Pharmacy Consult (Consult Rx Perform Med Rec) 1 each MISCELLANE ONCE PRN PRN Reason: Consult order Pharmacy Consult (Consult Rx Vancomycin Dosing) 1 each MISCELLANE DAILY PRN PRN Reason: Consult order Trazodone HCl (Trazodone Hcl 50 Mg Tablet) 150 mg PO BEDTIME PRN PRN Reason: Insomnia Last Admin: 08/03/22 21:44 Dose: 150 mg Documented By: ARPAN Labs 08/03/22 06:53 08/03/22 06:53 Labs: Laboratory Results - last 24 hr 08/03/22 08/03/22 08/03/22 06:53 07:41 11:38 Anion Gap 16 Estim Creat Clear Calc 48.6 Estimated GFR 34 POC Glucose 211 H 277 H Random Glucose 207 H Calcium 8.8 D 08/03/22 08/03/22 08/04/22 16:15 20:37 07:21 Anion Gap Estim Creat Clear Calc Estimated GFR POC Glucose 194 H 233 H 202 H Random Glucose Calcium Assessment and Plan (1) Labile hypertension: Status: Acute (2) Symptomatic bradycardia: Status: Acute Plan 56-year-old gentleman with underlying obesity, hypertension, diabetes mellitus, CKD stage 3-4,? depression/conversion disorder admitted to icu for symptomatic hyotension and bradycardia complciated by acute hypoxic respiratory failure requiring intubation. now extubated and down to 2L nc. acute hypoxic respiratory failure s/p extubation resolved symptomatic hypotension, bradycardia on admission, resolved due to medication, hypovolemia and autonomous dysfunction Cardiology input appreciated, PPM placement thoracic surgery placement of PPM went well Uncontrolled HTN SBP > 180s restarted full home meds of Imdur, Hydralazine and Labetalol alonog with 60 mg Nifedipine nephro following Start Isordil 2.5 bid increase Nifedipine to 120 LEDA on CKD IV due to hypotension, hypovolemia now at baseline skin bulla seems likely from extracasation with no evidence of DVT on US local care DM insulin hfpef diuretics on hold depression meds on hold obesity GARCIA weight loss dvt prophylaxis - hep sq full code reason for continued hospitalization:labile bps for PPM placement Time Spent With Patient Time: Total time managing care of this patient today ____ minutes. Quality Stroke Does the patient have a stroke diagnosis?: No VTE Prior VTE?: No VTE Risk Level:: Medical - moderate - high VTE Device Contraindication: N/A - Device Ordered VTE Drug Contraindication: N/A - Med Ordered
[2022-08-04] MEDS: Insulin Lispro 100 UNIT/ML 3 ML VIAL SUBCUT ×2 (07:46→12:01)
[2022-08-04] MEDS: Labetalol HCL 100 MG TABLET 300 MG PO (07:47)
[2022-08-04] MEDS: hydrALAZINE HCl 50 MG TABLET 100 MG PO (07:47)
[2022-08-04] MEDS: Isosorbide Mononitrate 30 MG TAB.ER.24H PO (07:47)
[2022-08-04] MEDS: minoxidiL 2.5 MG TABLET PO (07:47)
[2022-08-04] MEDS: Furosemide 40 MG TABLET PO (07:47)
[2022-08-04] MEDS: Bacitracin Oint 14 GM TUBE 1 APPL TOPICAL (07:48)
[2022-08-04 08:00] VITALS: BP 160/70; PULSE 91; RESP 20; TEMP 36.5; O2SAT 96
[2022-08-04 09:00] VITALS: O2SAT 93
--- NOTE | 2022-08-04 09:44 | MHC.CM.PN ---
PT MEDICALLY CLEARED TO D/C HOME W/[facility]UMP OF [facility], DTR JUNIOR FOR TRANSPORT.
[2022-08-04 12:08] LABS: Glucose, Whole Blood 251 mg/dL (60-115)
--- NOTE | 2022-08-04 12:13 | PM.PNCARD ---
Subjective Subjective Date of Service: 08/04/22 Principal diagnosis: junctional bradycardia, labile blood pressure. Interval history: No cardiac symptoms to report. Blood pressure still remains elevated. Renal duplex shows no significant renal artery stenosis. Pacemaker working well. Review of Systems Review of Systems Yes all other systems are reviewed and are negative Physical Exam Vital Signs: Last Vital Signs Temp 97.7 F 08/04/22 08:00 Pulse 91 08/04/22 08:00 Resp 20 08/04/22 08:00 BP 160/70 H 08/04/22 08:00 Pulse Ox 93 08/04/22 09:00 O2 Del Method Room Air 08/04/22 09:00 O2 Flow Rate 2 07/29/22 13:04 FiO2 30 07/27/22 11:00 BMI result Body Mass Index 35.3 Const General: cooperative, comfortable, no acute distress, alert and awake Nutritional Appearance: obese Orientation/consciousness: patient oriented x3 Neck Neck: Yes trachea midline, Yes supple and Yes no JVD Chest Chest palpation & inspection: other (Pacer pocket appears benign) Resp Effort & Inspection: normal respiratory effort Auscultation: clear to auscultation bilaterally Cardio Jugular venous distension: no JVD Palpation: normal PMI Rate: regular rate Rhythm: regular rhythm Heart sounds: S1 normal heart sound present, S2 normal heart sound present, no click, no gallops and no murmurs GI Auscultation: normal bowel sounds Skin General skin exam: no rashes or lesions noted Neuro General: patient oriented x3 and no focal motor deficits Objective Labs and Meds 08/03/22 06:53 08/03/22 06:53 Lab results: Laboratory Results - last 24 hr 08/03/22 08/03/22 08/04/22 16:15 20:37 07:21 POC Glucose 194 H 233 H 202 H 08/04/22 11:56 POC Glucose 251 H Imaging Radiologist's impression: Impressions Renal Ultrasound 08/03/22 16:45 IMPRESSION: Significant renal parenchymal abnormalities nor appreciable abnormal blood flow in the renal arteries. Portions of both main renal arteries were not well seen sonographically. No abnormally elevated peak systolic velocities are identified to indicate significant stenoses. Renal Ultrasound 08/03/22 16:45 IMPRESSION: Significant renal parenchymal abnormalities nor appreciable abnormal blood flow in the renal arteries. Portions of both main renal arteries were not well seen sonographically. No abnormally elevated peak systolic velocities are identified to indicate significant stenoses. Progress Note: A&P Assessment and plan (1) Cardiac pacemaker in situ: Status: Acute Assessment and Plan: Cardiac pacemaker in-situ for significant bradycardia hypertension and to support heart rate and be able to use beta-ella therapy to control his blood pressure which had worked well in the past. Will follow-up in 6 weeks time. (2) Labile hypertension: Status: Acute Assessment and Plan: Labile blood pressure of unclear etiology appears to be related to autonomic dysfunction. Could be driven by his anxiety/depression. Currently on multiple medications. No evidence of renal artery stenosis. Agree with discharging home. Importance of compliance with medication was discussed. Low-salt diet was discussed. Maintain adequate hydration. Advised to monitor blood pressure at home maintain a log. Will follow up in the clinic in 6 weeks time, sooner p.r.n.. Thank you for allowing me to partake in his care Time Spent With Patient Time: Total time managing care of this patient today ____ minutes. Progress Note: Quality Stroke Does the patient have a stroke diagnosis?: No Procedures Date of Service Date of Service: 08/04/22
== END 2022-08-04 12:57 | disposition home health service (06) | DRG 242 ==
LOC: HO.ED 15:45 → HO.EDOVER 16:06 → HO.ICU 16:11 → HO.IMC 07-27 16:17
PROVIDERS: Internal Medicine; Surgery; Admitting Provider Internal Medicine Pulmonary Disease; Emergency Provider Emergency Medicine; PCP Internal Medicine; Visit Provider Student in an Organized Health Care Education/Training Program
PROC: 0JH606Z Insertion of Pacemaker, Dual Chamber into Chest Subcutaneous Tissue and Fascia, Open Approach (ICD-10-PCS; principal; 2022-08-02 09:00)
DX: I95.2 Hypotension due to drugs (principal); J96.01 Acute respiratory failure with hypoxia; I13.0 Hypertensive heart and chronic kidney disease with heart failure and stage 1 through stage 4 chronic kidney disease, or unspecified chronic kidney disease; E87.20 Acidosis, unspecified; I50.32 Chronic diastolic (congestive) heart failure; N18.4 Chronic kidney disease, stage 4 (severe); R00.1 Bradycardia, unspecified; T46.5X5A Adverse effect of other antihypertensive drugs, initial encounter; E11.22 Type 2 diabetes mellitus with diabetic chronic kidney disease; E11.40 Type 2 diabetes mellitus with diabetic neuropathy, unspecified; F32.A Depression, unspecified; E87.5 Hyperkalemia; E66.9 Obesity, unspecified; E86.1 Hypovolemia; K75.81 Nonalcoholic steatohepatitis (NASH); G90.9 Disorder of the autonomic nervous system, unspecified; L13.9 Bullous disorder, unspecified; F06.4 Anxiety disorder due to known physiological condition; Z68.35 Body mass index [BMI] 35.0-35.9, adult; Z77.22 Contact with and (suspected) exposure to environmental tobacco smoke (acute) (chronic); Z88.1 Allergy status to other antibiotic agents; Z88.8 Allergy status to other drugs, medicaments and biological substances; Z79.4 Long term (current) use of insulin; Z79.899 Other long term (current) drug therapy
CPT/HCPCS: 36415; 36600; 71045; 76775; 80048; 80053; 81001; 82803; 82947; 83036; 83605; 83735; 84100; 84443; 84484; 85025; 85027; 85610; 86850; 86900; 86901; 87040; 93005; 93971; 93975; 94003; 99285; C1758; C1785; C1892; C1898; J0171; J0613; J0692; J1265; J1643; J2250; J2795; J3010; J3370; J3475

== ENCOUNTER 2022-08-07 19:27 | Emergency (ER) | payer OTHER, SELFPAY ==
--- NOTE | 2022-08-07 20:03 | PC.NURSE ---
pt brought in by [facility] at 1926 to room 4 EMS arrived on scene to pts home at 1910 after family witnessed the pt collapse after walking down two flights of stairs. pt was down in hi driveway, agonal respirations when EMS arrived, asystole on the monitor.. they administered 4 EPI via IO before making it [place] [facility] he remained asystole on th emonitor for EMS. pt with pmHx : DM, HTN, CKD, pacemaker for symptomatic bradycardia, sleep apnea and HF. Pt presenting with ecchymosis to abdomen (? insulin insertion site), no tattoos, no visible trauma. two attempts for failed IV insertion sites at [facility].
--- NOTE | 2022-08-07 20:08 | PC.NURSE ---
per pts daughter, he went down one flight of stairs by himself, lowered himself to the ground and scooted down the 2nd flight of stairs on his buttock. at that point he got into the car, went unresponsive, family got pt back out of the car, lowered him to the ground and called 911.
--- NOTE | 2022-08-07 21:09 | ED.CPR ---
HPI - CPR General Chief Complaint: Cardiac Arrest/CPR Stated Complaint: cardiac arrest Time Seen by Provider: 08/07/22 19:57 Source: EMS Mode of arrival: EMS Limitations: other History of Present Illness HPI narrative: Patient come to the emergency room via ambulance to cardiac arrest. The family reported that the patient has been declining medically/physically for the last 6 months. Patient has been in out of the hospital frequently. Patient was discharged from the hospital approximately 4 days ago. The patient's healthcare proxy reports that the patient walked down 2 flights of stairs. After the 1st flight of stairs, patient was complaining of not feeling well, possible chest pressure, patient sat down to the ground and then help himself [id number] sitting down towards the 1st floor. Patient's family help the patient get into the car. In the car, patient became unresponsive, the pupils became dilated, and patient's skin color turned ?correia?. Family tried waking him up but patient was unresponsive. Patient was helped by the family out of the car and lay on the ground. When EMS arrived, patient was in asystole, CPR was started, I- gel airway was inserted Related Data Home Medications Medication Instructions Recorded Confirmed venlafaxine 150 mg 150 mg PO DAILY 10/30/21 07/26/22 capsule,extended release 24 hr multivitamin with folic acid 400 1 tab PO DAILY 03/06/22 07/26/22 mcg tablet (Tab-A-George) pen needle, diabetic 32 gauge x #50 ea 03/06/22 06/02/22 3/16 (Ultracare Pen Needle) bupropion HCl 150 mg 24 hr tablet, 150 mg PO DAILY 05/16/22 07/26/22 extended release insulin aspart U-100 100 unit/mL 14 unit subcut TIDAC 05/16/22 07/26/22 (3 mL) subcutaneous pen (Novolog FlexPen U-100 Insulin aspart) insulin glargine U-300 conc 300 70 unit subcut DAILY 05/16/22 07/26/22 unit/mL (3 mL) subcutaneous pen (Toujeo Max U-300 SoloStar) meclizine 25 mg tablet 25 mg PO Q6H PRN Dizziness 05/16/22 07/26/22 trazodone 150 mg tablet 150 mg PO BEDTIME 05/16/22 07/26/22 Previous Rx's Medication Instructions Recorded clonazepam 0.5 mg tablet 0.5 mg PO TID PRN anxiety #90 tabs 01/31/21 lancets 28 gauge (FreeStyle #150 ea 05/12/21 Lancets) miscellaneous medical supply #1 ea 05/25/21 (Blood Pressure Cuff) pen needle, diabetic 32 gauge x #400 ea 08/11/21/32 (BD Kacey 2nd Gen Pen Needle) cholecalciferol (vitamin D3) 50 50 mcg PO DAILY #30 caps 08/30/21 mcg (2,000 unit) capsule (D3-2000) omega-3 acid ethyl esters 1 gram 2 cap PO BID 30 days #120 caps 09/04/21 capsule flash glucose sensor (FreeStyle #1 ea 04/10/22 John 14 Day Sensor kit) famotidine 20 mg tablet 20 mg PO BID #180 tabs 05/01/22 metoclopramide HCl 5 mg tablet 5 mg PO QID #360 tabs 05/01/22 simethicone 180 mg capsule 180 mg PO TID #90 caps 05/01/22 linagliptin 5 mg tablet (Tradjenta) 5 mg PO DAILY 30 days #30 tabs 05/16/22 gabapentin 300 mg capsule 300 mg PO BID #60 caps 06/07/22 labetalol 300 mg tablet 300 mg PO BID #60 tabs 06/11/22 blood pressure monitor (Blood #1 ea 06/12/22 Pressure Kit) nifedipine 60 mg tablet,extended 120 mg PO DAILY 90 days #180 tabs 06/13/22 release 24 hr isosorbide mononitrate 30 mg 30 mg PO DAILY #30 tabs 06/29/22 tablet,extended release 24 hr hydralazine 100 mg tablet 100 mg PO TID 14 days #42 tabs 07/19/22 furosemide 40 mg tablet 40 mg PO DAILY #30 tabs 08/03/22 minoxidil 2.5 mg tablet 2.5 mg PO BID #60 tabs 08/03/22 Allergies Allergy/AdvReac Type Severity Reaction Status Date / Time cephalexin [From KEFLEX] Allergy Mild ITCHY Verified 05/31/22 14:14 THROAT lisinopril [LISINOPRIL] Allergy Unknown SWELLING Verified 05/31/22 14:14 COUGH Review of Systems Review of Systems: Yes Unobtainable due to mental condition PMFSH Past Medical History Medical History Acute hyponatremia Anxiety Cardiac pacemaker in situ Cerebral microvascular disease Chronic anemia Chronic hyperglycemia CKD (chronic kidney disease) stage 3, GFR 30-59 ml/min CKD (chronic kidney disease) stage 4, GFR 15-29 ml/min Depression Diabetes mellitus with coincident hypertension Diabetes type 2, uncontrolled Diabetic nephropathy associated with type 2 diabetes mellitus Diabetic neuropathy associated with type 2 diabetes mellitus Dyslipidemia Essential hypertension GERD (gastroesophageal reflux disease) Hepatitis High cholesterol Hypercalcemia Hyperlipidemia Hypertension 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 Social History Social History Household Members: Unknown / Unable to assess Household Members Other:: SISTER Housing: Apartment Do you presently have visiting nurse or other home services: Yes Unable to assess alcohol history related to: Unable to respond and Unknown Alcohol intake: never Patient Tobacco Use Status: Never used Tobacco e-Cigarette/Vaping Use: Never Used Second Hand Smoke Exposure: Yes (HISTORY OF SECOND HAND SMOKE EXPOSURE) Advance Directives: Yes Advance Directives on File: Yes Advance Directives Date on File: 05/05/20 service: No Current occupational status: disabled Current occupation: right handed Cognitive needs: No Hearing needs: No Vision needs: No Physical Exam Const: Other: Appearance: Unresponsive Eyes: Fixed, dilated, unresponsive to light ENT: Eye gel in the oropharynx, copious amount of vomiting the airway Neck: Normal inspection. Neck supple. No lymph nodes noted. No crepitus CVS: ER/Patric in progress Respiratory: Intubated, being ventilated Abdomen: Significantly distended, ecchymosis in the lower quadrants of the abdomen likely secondary to insulin injections Skin: Skin cold, mottled Extremities: No lower extremity edema. No Lacerations. No Rash Neuro: Unresponsive Psych: Unresponsive Medical Decision Making Medical Decision Making MDM Narrative: -patient has significant past medical history. Patient was admitted in late June and discharged 3 days ago on Aug 04 2022. -on this admission, patient had to be intubated due to hypoxic respiratory failure. Patient was also treated for uncontrolled hypertension, bradycardia, a pacemaker was inserted on 08/02/2022 -per patient's family, patient has been declining constantly for the last 6 months. -patient did not have any injuries to suspect abuse or trauma -I discussed the patient with the medical sales associate, case was declined, case -patient's cause of likely an arrhythmia, patient had a complex medical history Critical Care Time Critical Care Time Critical Care Time: Yes Total Critical Care Time: 45 Attestation: I have personally provided critical care time. Time includes review of lab data, radiology results, discussion with consultants, and monitoring for potential decompensation. Intervention performed as documented. Discharge Plan Discharge Clinical Impression: Cardiac arrest Patient Disposition: Interventions: Organ Donor Nursing Doc/Post Mortem care Last Done: 08/07/22 20:34 Date/Time: 08/07/22 19:46
[2022-08-08 07:24] LABS: Glucose, Whole Blood 234 mg/dL (60-115)
== END 2022-08-07 22:42 | disposition expired ==
PROVIDERS: Emergency Provider Emergency Medicine
DX: I46.9 Cardiac arrest, cause unspecified (principal); E11.22 Type 2 diabetes mellitus with diabetic chronic kidney disease; I13.0 Hypertensive heart and chronic kidney disease with heart failure and stage 1 through stage 4 chronic kidney disease, or unspecified chronic kidney disease; N18.4 Chronic kidney disease, stage 4 (severe); I50.9 Heart failure, unspecified; Z95.0 Presence of cardiac pacemaker
CPT/HCPCS: 82947; 96374; 96375; 99282; 99285; J0171; J0282